=== PATIENT | female | born 1945 | race Caucasian/White ===

== ENCOUNTER → 2017-08-12 11:14 | Outpatient (CLI) | payer MEDICARE, SELFPAY ==
--- NOTE | 2017-08-12 11:21 | RAD_ITS ---
STUDY: X-RAY CHEST REASON FOR EXAM: Female, 72 years old. Productive cough, allergies TECHNIQUE: PA and lateral views of the chest. COMPARISON: Thoracic spine films 06/21/2015 FINDINGS: The lungs are hyperinflated. There are chronic interstitial markings. There is more focal irregular opacity in the left upper lung. The chronicity of this finding is unclear in the absence of comparison chest radiograph. There is no demonstrated pleural abnormality. There is mild cardiac enlargement. Normal mediastinum and anaya. Normal visualized pulmonary arteries. There is atherosclerotic calcification of the aortic arch with tortuosity. The bones are demineralized. There are several compression deformities within the thoracic and lumbar spine. Normal visualized ribs, clavicles, and shoulders. Surgical clips project over the right breast. RAD/Chest PA and Lateral IMPRESSION: Chronic appearing lung changes. More focal opacity in the left upper lobe. This may represent pulmonary scarring. However, in the absence of comparison studies, this may represent focal consolidation. Underlying mass cannot be excluded. This patient may benefit from a CT of the chest. Additional findings, as detailed above. Electronically Signed: Chaparro Adams DO at 9:39 EDT Tel , Service support ,
[2017-08-12 14:53] LABS: Absolute Lymphocyte Count 0.67 X10^3/ul (0.83-4.51); Basophil# 0.02 X10^3/uL; Basophil% 0.2 % (0-1); Eosinophil# 0.01 X10^3/uL; Eosinophils% 0.1 % (0-5); Hematocrit 45.9 % (37-47); Hemoglobin 15.7 g/dl (12.0-15.0); Lymphocyte # 0.67 X10^3/ul (4.0); Lymphocyte % 5.5 % (19-41); Mean Corp Hgb Conc 34.2 g/gl (32-36); Mean Corpuscular Hgb 32.8 pg (27.0-32.0); Mean Corpuscular Volume 95.8 fL (81-99); Mean Platelet Vol. 11.1 fl (6.2-12.0); Monocyte# 1.44 X10^3/uL; Monocyte% 11.8 % (0-10); Neutrophil # 10.02 X10^3/uL (2.7-7.7); Neutrophil % 82.1 % (47-70); Platelet Count 371 K/mm3 (150-450); RBC Distribution Width CV 12.7 % (11.6-14.6); RBC Distribution Width SD 44.6 fl (35.1-43.9); Red Blood Count 4.79 M/mm3 (4.2-5.4); White Blood Count 12.2 K/mm3 (4.4-11.0)
[2017-08-12 14:54] LABS: POSITIVE COUNT NO; POSITIVE DIFFERENTIAL NO; POSITIVE MORPHOLOGY NO
== END ==
PROVIDERS: Family Provider Family Medicine; PCP Family Medicine; Visit Provider Family Medicine
DX: R05 Cough (principal)
CPT/HCPCS: 36415; 71046; 85025

== ENCOUNTER → 2018-06-04 08:20 | Outpatient (CLI) | payer MEDICARE, SELFPAY ==
[2018-06-04 14:53] LABS: Vitamin D,25 Hydroxy 52.2 ng/mL (29.95-100.01)
== END ==
PROVIDERS: Family Provider Family Medicine; PCP Family Medicine; Visit Provider Family Medicine
DX: E55.9 Vitamin D deficiency, unspecified (principal)
CPT/HCPCS: 36415; 82306

== ENCOUNTER → 2019-10-15 09:56 | Outpatient (CLI) | payer MEDICARE, SELFPAY ==
[2019-10-15 12:28] LABS: Absolute Lymphocyte Count 1.15 X10^3/uL (0.83-4.51); Absolute Neutrophil Count 2.6 X10^3/uL (2.0-7.7); Basophil# 0.13 X10^3/uL; Basophil% 2.9 % (0-1); Eosinophil# 0.14 X10^3/uL; Eosinophils% 3.1 % (0-5); Hematocrit 46.2 % (37-47); Hemoglobin 14.6 g/dL (12.0-15.0); Lymphocyte # 1.15 X10^3/ul (4.0); Lymphocyte % 25.4 % (19-41); Mean Corp Hgb Conc 31.6 g/dL (32-36); Mean Corpuscular Volume 104.5 fL (81-99); Mean Platelet Vol. 11.7 fl (6.2-12.0); Monocyte# 0.45 X10^3/uL; NRBC Flagged by Analyzer 0 % (0-5); Neutrophil # 2.64 X10^3/uL (2.7-7.7); Neutrophil % 58.4 % (47-70); Platelet Count 284 K/mm3 (150-450); RBC Distribution Width CV 14.4 % (11.6-14.6); RBC Distribution Width SD 55.6 fl (35.1-43.9); Red Blood Count 4.42 M/mm3 (4.2-5.4); White Blood Count 4.5 K/mm3 (4.4-11.0)
[2019-10-15 12:36] LABS: ALB/GLOB Ratio 1.1 RATIO (0.9-2.4); AST(SGOT) 19 U/L (15-37); Alanine Aminotransfer ALT/SGPT 21 U/L (13-56); Albumin, Serum 3.8 g/dL (3.2-5.0); Alkaline Phosphatase 98 U/L (45-117); Anion Gap 5 (5-15); BUN 12 mg/dL (7-18); BUN/Creat Ratio 17.7 RATIO (10-20); Chloride 106 mmol/L (98-107); Cholesterol 227 mg/dL (200); Creatinine, Serum 0.68 mg/dL (0.55-1.02); EST Glomerular Filtration Rate 90 mL/min (>60); Est Glom Filt Rate - Afr Amer 109 mL/min (>60); Globulin 3.4 g/dL (2.2-4.2); Glucose 79 mg/dL (74-106); High Density Lipoprotein 102 mg/dL; Protein, Total 7.2 g/dL (6.4-8.2); Sodium Level 140 mmol/L (136-145); Triglycerides 85 mg/dL; Very Low Density Lipoprotein 17 mg/dL (5-40)
[2019-10-15 12:56] LABS: Vitamin D,25 Hydroxy 63.2 ng/mL
== END ==
PROVIDERS: PCP Family Medicine; Visit Provider Family Medicine
DX: Z00.00 Encounter for general adult medical examination without abnormal findings (principal); E78.5 Hyperlipidemia, unspecified; E55.9 Vitamin D deficiency, unspecified; M81.0 Age-related osteoporosis without current pathological fracture; Z13.220 Encounter for screening for lipoid disorders
CPT/HCPCS: 36415; 80053; 80061; 82306; 85025

== ENCOUNTER 2020-04-13 15:57 | Outpatient (RCR) | payer MEDICARE, SELFPAY | END 2020-04-13 23:59 | LOC: IMMUN 15:57 | PROVIDERS: PCP Family Medicine; Referring Provider Family Medicine; Visit Provider Family Medicine | DX: Z23 Encounter for immunization (principal) | CPT/HCPCS: 0011A; 0012A ==

== ENCOUNTER → 2021-12-04 | Outpatient (CLI) | payer MEDICARE, SELFPAY ==
[2021-12-04 12:17] LABS: Absolute Lymphocyte Count 1.22 X10^3/uL (0.83-4.51); Basophil# 0.09 X10^3/uL; Basophil% 2.3 % (0-1); Eosinophil# 0.17 X10^3/uL; Eosinophils% 4.4 % (0-5); Hematocrit 45.5 % (37-47); Hemoglobin 14.7 g/dL (12.0-15.0); Lymphocyte # 1.22 X10^3/ul (0.83-4.51); Lymphocyte % 31.5 % (19-41); Mean Corp Hgb Conc 32.3 g/dL (32-36); Mean Corpuscular Hgb 33.8 pg (27.0-32.0); Mean Corpuscular Volume 104.6 fL (81-99); Mean Platelet Vol. 11.5 fl (6.2-12.0); Monocyte% 10.3 % (0-10); NRBC Flagged by Analyzer 0 % (0-5); Neutrophil # 1.98 X10^3/uL (2.7-7.7); Neutrophil % 51.2 % (47-70); Platelet Count 435 K/mm3 (150-450); RBC Distribution Width CV 13.6 % (11.6-14.6); RBC Distribution Width SD 52.7 fl (35.1-43.9); Red Blood Count 4.35 M/mm3 (4.2-5.4); White Blood Count 3.9 K/mm3 (4.4-11.0)
[2021-12-04 13:45] LABS: AST(SGOT) 29 U/L (15-37); Alanine Aminotransfer ALT/SGPT 25 U/L (13-56); Albumin, Serum 3.6 g/dL (3.2-5.0); Alkaline Phosphatase 138 U/L (45-117); Anion Gap 11 (5-15); BUN 10 mg/dL (7-18); BUN/Creat Ratio 13.9 RATIO (10-20); Calcium,Total 9.2 mg/dL (8.5-10.1); Chloride 105 mmol/L (98-107); Cholesterol 219 mg/dL (200); Creatinine, Serum 0.72 mg/dL (0.55-1.02); EST Glomerular Filtration Rate 84 mL/min (>60); Est Glom Filt Rate - Afr Amer 101 mL/min (>60); Globulin 3.6 g/dL (2.2-4.2); Glucose 95 mg/dL (74-106); High Density Lipoprotein 96 mg/dL; Potassium 4.9 mmol/L (3.5-5.1); Protein, Total 7.2 g/dL (6.4-8.2); Sodium Level 140 mmol/L (136-145); Triglycerides 84 mg/dL; Very Low Density Lipoprotein 17 mg/dL (5-40)
== END | disposition home or self-care (01) ==
LOC: BFHLAB 09:02
PROVIDERS: PCP Family Medicine; Referring Provider Family Medicine; Visit Provider Family Medicine
DX: E78.5 Hyperlipidemia, unspecified (principal); Z51.81 Encounter for therapeutic drug level monitoring
CPT/HCPCS: 36415; 80053; 80061; 85025

== ENCOUNTER → 2022-07-19 | Outpatient (CLI) | payer MEDICARE, SELFPAY ==
--- NOTE | 2022-07-19 10:13 | RAD_ITS ---
STUDY: X-RAY - LEFT ANKLE REASON FOR EXAM: Female, 77 years old. Left ankle pain. TECHNIQUE: 3 view(s) of the ankle. COMPARISON: None. FINDINGS: Osteopenia. Intramedullary tibial conor with interlocking cancellus screw and medial distal tibial fracture. Normal tibiotalar and subtalar joints. Normal midfoot. Normal soft tissues. RAD/Ankle min 3 Views IMPRESSION: Osteopenia with postsurgical changes and no other abnormality. Electronically Signed: All Mario MD at 13:13 EDT ,
== END | disposition home or self-care (01) ==
LOC: RAD 10:11
PROVIDERS: PCP Family Medicine; Referring Provider Family Medicine; Visit Provider Family Medicine
DX: M25.572 Pain in left ankle and joints of left foot (principal)
CPT/HCPCS: 73610

== ENCOUNTER → 2022-10-09 | Outpatient (CLI) | payer MEDICARE, SELFPAY ==
--- NOTE | 2022-10-09 10:35 | RAD_ITS ---
STUDY: X-RAY CHEST REASON FOR EXAM: Female, 77 years old. Cough, shortness of breath and wheezing. TECHNIQUE: Frontal and lateral views of the chest. COMPARISON: Chest dated July 2017. FINDINGS: Stable cardiomegaly with aortic tortuosity and calcification. Linear scarring in the left upper lobe with healed granulomatous calcifications unchanged. Increased reticular nodular opacities in both lower lobes, right greater than left, which are new since the prior study. Findings may represent new early/developing pneumonia. Follow-up chest imaging to resolution recommended. Marked osteopenia of the thoracic spine with spondylosis, multiple anterior wedge compression deformities and increased kyphosis. No abnormality of the visualized soft tissue structures of the upper abdomen. RAD/Chest PA and Lateral IMPRESSION: Cardiomegaly with aortic tortuosity and new opacities in both lower lobes as described. Findings may represent early/developing pneumonia and follow-up chest imaging to resolution is recommended. No acute abnormality. Electronically Signed: All Mario MD at 15:43 EDT ,
== END | disposition home or self-care (01) ==
LOC: RAD 10:34
PROVIDERS: PCP Family Medicine; Referring Provider Nurse Practitioner Family; Visit Provider Nurse Practitioner Family
DX: R05.9 Cough, unspecified (principal); R06.02 Shortness of breath; R06.2 Wheezing
CPT/HCPCS: 71046

== ENCOUNTER → 2022-10-24 | Outpatient (CLI) | payer MEDICARE, SELFPAY ==
--- NOTE | 2022-10-24 16:20 | RAD_ITS ---
INDICATION: HX OF PNEUMONIA EXAMINATION/TECHNIQUE: X-RAY - XR Chest 2 Views COMPARISON: 08/12/2017 FINDINGS: LINES/DEVICES: None. LUNGS: Small left pleural effusion. Left lower lobe pneumonia is not excluded. Mild left upper lobe scarring. MEDIASTINUM AND CARDIOVASCULAR STRUCTURES: Cardiac silhouette not enlarged. Central airways and mediastinal contour are unremarkable. BONES AND SOFT TISSUES: Unremarkable. RAD/Chest PA and Lateral IMPRESSION: Left pleural effusion, with question of underlying pneumonia. Electronically Signed: Sarai Goyal MD at 17:10 EDT Reading Location ID and State: [id number] / Tel , Service support ,
[2022-10-24 18:00] LABS: Absolute Lymphocyte Count 0.99 X10^3/uL (0.83-4.51); Absolute Neutrophil Count 5.7 X10^3/uL (2.0-7.7); Basophil# 0.06 X10^3/uL; Basophil% 0.8 % (0-1); Eosinophil# 0.07 X10^3/uL; Hematocrit 45.4 % (37-47); Lymphocyte # 0.99 X10^3/ul (0.83-4.51); Lymphocyte % 13.6 % (19-41); Mean Corpuscular Volume 99.8 fL (81-99); Mean Platelet Vol. 12.3 fl (6.2-12.0); Monocyte# 0.44 X10^3/uL; Monocyte% 6.1 % (0-10); NRBC Flagged by Analyzer 0 % (0-5); Neutrophil # 5.68 X10^3/uL (2.7-7.7); Neutrophil % 78.1 % (47-70); POSITIVE MORPHOLOGY YES; Platelet Count 308 K/mm3 (150-450); RBC Distribution Width CV 12.5 % (11.6-14.6); RBC Distribution Width SD 46.3 fl (35.1-43.9); Red Blood Count 4.55 M/mm3 (4.2-5.4); White Blood Count 7.3 K/mm3 (4.4-11.0)
[2022-10-24 18:03] LABS: AST(SGOT) 33 U/L (15-37); Alanine Aminotransfer ALT/SGPT 34 U/L (13-56); Albumin, Serum 3.8 g/dL (3.2-5.0); Alkaline Phosphatase 158 U/L (45-117); Anion Gap 10 (5-15); BUN 7 mg/dL (7-18); Calcium,Total 9.3 mg/dL (8.5-10.1); Chloride 94 mmol/L (98-107); Creatinine, Serum 0.64 mg/dL (0.55-1.02); EST Glomerular Filtration Rate 96 mL/min (>60); Est Glom Filt Rate - Afr Amer 116 mL/min (>60); Globulin 3.9 g/dL (2.2-4.2); Glucose 123 mg/dL (74-106); Magnesium 1.9 mg/dL (1.6-2.6); Potassium 3.5 mmol/L (3.5-5.1); Protein, Total 7.7 g/dL (6.4-8.2); Sodium Level 129 mmol/L (136-145)
[2022-10-24 18:27] LABS: BNP,B-Type NATRIURETIC PEPTIDE 602.2 pg/mL (0-100)
[2022-10-24 18:46] LABS: Differential Comment SCANNED; Differential Indicated SCAN CRITERIA MET
[2022-10-24 18:47] LABS: Erythrocyte Sedimentation Rate 26 mm/hr (0-30)
== END | disposition home or self-care (01) ==
PROVIDERS: PCP Family Medicine; Referring Provider Nurse Practitioner Family; Visit Provider Nurse Practitioner Family
DX: J18.9 Pneumonia, unspecified organism (principal); R06.02 Shortness of breath; E87.70 Fluid overload, unspecified; R60.1 Generalized edema; Z87.01 Personal history of pneumonia (recurrent)
CPT/HCPCS: 36415; 71046; 80053; 83735; 83880; 85025; 85652; 86140

== ENCOUNTER → 2022-10-25 | Outpatient (CLI) | payer MEDICARE, SELFPAY ==
--- NOTE | 2022-10-25 11:47 | CT_ITS ---
STUDY: CTA CHEST REASON FOR EXAM: Female, 77 years old. SOB RADIATION DOSAGE (If Supplied By Facility): CTDIvol = ( 10.66 ) mGy, DLP = ( 369.81 ) mGycm TECHNIQUE: The examination was performed with the intravenous administration of IV 75mL Isovue-370. Post-processing of the angiographic images was performed, with multiplanar reformation and 3D reconstruction. Individualized dose optimization techniques were used for this CT. COMPARISON: Chest x-ray of 10/24/2022. FINDINGS: Normal enhancement of the main pulmonary artery and right and left pulmonary arteries. Normal enhancement of the bilateral peripheral pulmonary arteries. There is no demonstrated pulmonary embolism. There is atherosclerotic calcification of the aortic arch without evidence of aneurysm. The aorta otherwise is not enhanced. Normal heart and pericardium. Normal mediastinum. Normal hilar regions. Normal visualized trachea and bronchi. Linear atelectasis in the left upper lobe. Limited examination due to motion. Compressive atelectatic changes in the left lower lobe. Moderate to large left and moderate right pleural effusions. Asymmetric right breast density with calcifications. Correlation with nonemergent mammography is recommended. Moderate compression fractures of several mid thoracic vertebrae. Increased kyphosis. The visualized portions of the upper abdomen demonstrate no acute process. 1.4 cm low-density lesion in the liver difficult to characterize and may represent cyst. CT/CTA Chest W/WO Contrast IMPRESSION: 1. No evidence of pulmonary embolism. 2. Atelectatic changes in the left lung. 3. Bilateral pleural effusions larger on the left side. 4. Asymmetric right breast density for which correlation with nonemergent mammography is recommended. Electronically Signed: Erasto Webb MD at 14:02 EDT ,
== END | disposition home or self-care (01) ==
LOC: CT 11:46
PROVIDERS: PCP Family Medicine; Referring Provider Nurse Practitioner Family; Visit Provider Nurse Practitioner Family
DX: J18.9 Pneumonia, unspecified organism (principal); Z85.3 Personal history of malignant neoplasm of breast
CPT/HCPCS: 71275; Q9967; A4216

== ENCOUNTER 2022-10-29 15:01 | Outpatient (CLI) | payer MEDICARE, SELFPAY ==
[2022-10-29 17:46] LABS: Absolute Lymphocyte Count 0.48 X10^3/uL (0.83-4.51); Absolute Neutrophil Count 9.5 X10^3/uL (2.0-7.7); Basophil# 0.02 X10^3/uL; Basophil% 0.2 % (0-1); Hematocrit 47.8 % (37-47); Hemoglobin 15.6 g/dL (12.0-15.0); Lymphocyte # 0.48 X10^3/ul (0.83-4.51); Lymphocyte % 4.6 % (19-41); Mean Corp Hgb Conc 32.6 g/dL (32-36); Mean Corpuscular Hgb 32.8 pg (27.0-32.0); Mean Corpuscular Volume 100.4 fL (81-99); Mean Platelet Vol. 12.2 fl (6.2-12.0); Monocyte# 0.37 X10^3/uL; Monocyte% 3.5 % (0-10); NRBC Flagged by Analyzer 0.2 % (0-5); Neutrophil # 9.52 X10^3/uL (2.7-7.7); Neutrophil % 91.2 % (47-70); POSITIVE DIFFERENTIAL YES; Platelet Count 301 K/mm3 (150-450); RBC Distribution Width CV 12.7 % (11.6-14.6); RBC Distribution Width SD 47.5 fl (35.1-43.9); Red Blood Count 4.76 M/mm3 (4.2-5.4); White Blood Count 10.4 K/mm3 (4.4-11.0)
[2022-10-29 18:05] LABS: Differential Indicated SCAN CRITERIA MET
[2022-10-29 18:32] LABS: Differential Comment SCANNED
[2022-10-29 19:04] LABS: AST(SGOT) 53 U/L (15-37); Alanine Aminotransfer ALT/SGPT 72 U/L (13-56); Albumin, Serum 3.8 g/dL (3.2-5.0); Alkaline Phosphatase 127 U/L (45-117); Anion Gap 11 (5-15); BUN 17 mg/dL (7-18); BUN/Creat Ratio 20.6 RATIO (10-20); Calcium,Total 9.5 mg/dL (8.5-10.1); Chloride 96 mmol/L (98-107); Creatinine, Serum 0.82 mg/dL (0.55-1.02); EST Glomerular Filtration Rate 72 mL/min (>60); Est Glom Filt Rate - Afr Amer 87 mL/min (>60); Free T3 1.6 pg/mL (2.18-3.98); Globulin 3.7 g/dL (2.2-4.2); Glucose 116 mg/dL (74-106); Magnesium 2.4 mg/dL (1.6-2.6); Potassium 3.5 mmol/L (3.5-5.1); Protein, Total 7.5 g/dL (6.4-8.2); Sodium Level 134 mmol/L (136-145); Thyroid Stim Hormone (TSH) 2.02 uIU/mL (0.358-3.74); Troponin-I HS 21 pg/mL (3.0-54.0)
== END 2022-10-29 23:59 | disposition home or self-care (01) ==
LOC: BFHLAB 15:05
PROVIDERS: PCP Family Medicine; Referring Provider Family Medicine; Visit Provider Family Medicine
DX: E03.9 Hypothyroidism, unspecified (principal); R00.0 Tachycardia, unspecified; Z51.81 Encounter for therapeutic drug level monitoring; E87.1 Hypo-osmolality and hyponatremia; R07.9 Chest pain, unspecified; J90 Pleural effusion, not elsewhere classified; R06.02 Shortness of breath
CPT/HCPCS: 36415; 71046; 80053; 83735; 84439; 84443; 84481; 84484; 85025

== ENCOUNTER → 2022-10-29 | Outpatient (CLI) | payer MEDICARE, SELFPAY ==
--- NOTE | 2022-10-29 15:35 | RAD_ITS ---
INDICATION: CHEST XRAY follow-up EXAMINATION/TECHNIQUE: X-RAY - XR Chest 2 Views COMPARISON: Chest x-ray 10/24/2022, CT chest 10/25/2022 FINDINGS: LINES/DEVICES: None. LUNGS: Small pleural effusions, greater on the left, not significantly changed. Patchy opacity in the left lung base and left perihilar, unchanged. No pneumothorax. MEDIASTINUM: Unremarkable. CARDIAC SILHOUETTE: Not enlarged. BONES AND SOFT TISSUES: Multiple thoracic compression abnormalities with kyphosis. Asymmetric breast soft tissue unchanged, and surgical clips overlying the right chest wall. RAD/Chest PA and Lateral IMPRESSION: Bilateral pleural effusions and opacities left greater than right, not significantly changed. Electronically Signed: Nusrat Garcia MD at 6:35 EDT ,
== END | disposition home or self-care (01) ==
LOC: MTRAD 15:28
PROVIDERS: PCP Family Medicine; Referring Provider Family Medicine; Visit Provider Family Medicine
DX: J90 Pleural effusion, not elsewhere classified (principal); R06.02 Shortness of breath
CPT/HCPCS: 71046

== ENCOUNTER → 2022-11-08 | Outpatient (CLI) | payer MEDICARE, SELFPAY ==
--- NOTE | 2022-11-08 09:48 | ECHOD_ITS ---
Reason For Study: BILAT PLEURAL EFF Procedure This was a 2D Doppler, Color Flow transthoracic echocardiogram. The study was technically difficult. Definity declined. Patient was very nervous. Exam performed in department. Left Ventricle Normal LV size. Mild concentric left ventricular hypertrophy. Severe global left ventricular systolic dysfunction. The estimated ejection fraction is 20 %. There is severe global hypokinesis of the left ventricle. Right Ventricle Normal RV size. Normal systolic function. Atria The left atrium is mildly enlarged. The right atrium is mildly enlarged. Mitral Valve Normal mitral valve. Tricuspid Valve Normal tricuspid valve. Mild (1+) tricuspid valve insufficiency. Pulmonary artery systolic pressure is 30 mmHg. Aortic Valve Trisinus/trileaflet aortic valve. Pulmonic Valve Normal pulmonic valve. Great Vessels Normal aortic root. The pulmonary artery is normal size. Normal inferior vena cava. Pericardium/Pleural No pericardial effusion. MMode/2D Measurements & Calculations LVIDd: 3.3 cm IVSd: 1.2 cm Ao root diam: 3.0 cm LVIDs: 3.2 cm LVPWd: 1.4 cm RVDd: 2.5 cm FS: 4.2 % LAV(MOD-bp): 53.2 ml LVAd ap4: 17.6 cm2 LVAd ap2: 16.1 cm2 LAV(MOD-bp) Indexed: 32.0 ml/m2 LVLd ap4: 5.9 cm LVLd ap2: 6.0 cm LAV(MOD-sp2): 41.1 ml EDV(MOD-sp4): 43.5 ml EDV(MOD-sp2): 36.3 ml LAV(MOD-sp4): 54.9 ml EDV(sp4-el): 44.1 ml EDV(sp2-el): 36.7 ml LVAs ap4: 15.8 cm2 LVAs ap2: 13.8 cm2 LVLs ap4: 5.8 cm LVLs ap2: 5.9 cm ESV(MOD-sp4): 36.2 ml ESV(MOD-sp2): 27.9 ml ESV(sp4-el): 36.6 ml ESV(sp2-el): 27.3 ml EF(MOD-sp4): 16.9 % EF(MOD-sp2): 23.1 % EF(sp4-el): 16.9 % SV(MOD-sp4): 7.3 ml SV(MOD-sp2): 8.4 ml SV(sp4-el): 7.5 ml LA dimension(2D): 3.3 cm LA A4 area: 20.5 cm2 RA A4 area: 21.6 cm2 TAPSE: 0.54 cm Doppler Measurements & Calculations MV E max arsh: 66.7 cm/sec Ao V2 max: 86.1 cm/sec LV V1 max: 67.5 cm/sec Ao max P.0 mmHg LV V1 max P.8 mmHg Ao V2 mean: 61.5 cm/sec LV V1 mean P.2 mmHg Ao mean P.7 mmHg LV V1 mean: 52.5 cm/sec Ao V2 VTI: 9.4 cm LV V1 VTI: 6.6 cm AV (velocity ratio): 0.70 TR max arsh: 244.0 cm/sec TR max P.8 mmHg ECHO/Echo Complete Interpretation Summary Normal LV size. Severe global left ventricular systolic dysfunction. The estimated ejection fraction is 20 %. There is severe global hypokinesis of the left ventricle. Pulmonary artery systolic pressure is 30 mmHg. Mild concentric left ventricular hypertrophy. Ordering Physician: Rachna Acosta Referring Physician: Rachna Acosta Performed By: Laura Davis RCS
== END | disposition home or self-care (01) ==
LOC: CVS 09:46
PROVIDERS: PCP Family Medicine; Referring Provider Family Medicine; Visit Provider Family Medicine
DX: J90 Pleural effusion, not elsewhere classified (principal); R06.02 Shortness of breath; R60.9 Edema, unspecified; Z85.3 Personal history of malignant neoplasm of breast
CPT/HCPCS: 93306

== ENCOUNTER 2022-11-27 07:27 | Day surgery (SDC) | payer MEDICARE, SELFPAY ==
[2022-11-26 08:06] VITALS: BMI 22.8
--- NOTE | 2022-11-27 09:36 | PCM.OP.PRO ---
Procedure Report Date of Procedure: 11/27/22 DC cardioversion. 77-year-old lady with a history of atrial fibrillation dilated cardiomyopathy who presents for cardioversion. After informed consent was obtained the patient was seen by Dr. Ruiz of the critical care division. Anterior-posterior pads were applied. 200 J of biphasic DC cardioversion energy were applied after patient had been administered 4 mg of intravenous etomidate. Patient promptly returned back to sinus rhythm. Patient tolerated the procedure well. Conclusion: Successful DC cardioversion from atrial fibrillation to sinus rhythm. Continue current beta-nba dose. Continue anticoagulation. We will start amiodarone 200 mg a day for a month. We will schedule for a cardiac catheterization at the next visit in the office.
--- NOTE | 2022-11-27 10:27 | PRO.PCM_ITS ---
Procedure Report Date of Procedure: 11/27/22 CONSCIOUS SEDATION REPORT DATE OF SERVICE: November 27, 2022 BRIEF HISTORY OF PRESENT ILLNESS: The patient is a 77-year-old female who presented to [facility] for elective outpatient cardioversion due to underlying atrial fibrillation. The patient denied a history of obstructive sleep apnea. She reported no prior anesthetic complications. She is systemically anticoagulated on Eliquis. Her last surface echocardiogram demonstrated an ejection fraction of approximately 20%. PHYSICAL EXAMINATION: VITAL SIGNS: Reviewed and were acceptable. GENERAL: The patient is a female, in no apparent distress, speaking in full sentences. HEENT: Normocephalic, atraumatic. Mucous membranes are moist and pink. Good mouth opening noted. Trachea is midline. CHEST: S1, S2 irregularly irregular. No murmurs, rubs or gallops were noted. LUNGS: Clear to auscultation bilaterally without appreciable wheezes, rales or rhonchi. ABDOMEN: Soft, nontender, nondistended. Positive bowel sounds. EXTREMITIES: There is no clubbing, cyanosis or edema. ASA Class: II DESCRIPTION OF PROCEDURE: After confirmation of informed consent, the patient's anesthesia plan was reviewed in detail. Etomidate was chosen. Risks and benefits were reviewed and the patient agreed to proceed. At 0920, the patient was given 4 mg of etomidate. The patient achieved an appropriate level of sedation and was given a 200 joule synchronized cardioversion by Dr. Berry at the bedside. This was successful in achieving normal sinus rhythm. The patient was monitored until 0933, at which time she reached her baseline mental status and function. The patient tolerated the procedure well. COMPLICATIONS: None ESTIMATED BLOOD LOSS: None RECOMMENDATIONS: Okay to recover in usual fashion. Procedures Pulmonary 9xxxx: [id number] Con Sedation
== END 2022-11-27 10:25 | disposition home or self-care (01) ==
LOC: CLSP 07:28
PROVIDERS: PCP Family Medicine; Referring Provider Internal Medicine Cardiovascular Disease; Visit Provider Internal Medicine Cardiovascular Disease
DX: I48.91 Unspecified atrial fibrillation (principal); I42.8 Other cardiomyopathies; I48.92 Unspecified atrial flutter; Z79.899 Other long term (current) drug therapy; Z87.891 Personal history of nicotine dependence; Z79.01 Long term (current) use of anticoagulants
CPT/HCPCS: 92960; 93005; J7040

== ENCOUNTER → 2022-12-20 | Outpatient (CLI) | payer MEDICARE, SELFPAY ==
[2022-12-20 12:58] LABS: Absolute Lymphocyte Count 1.14 X10^3/uL (0.83-4.51); Basophil# 0.07 X10^3/uL; Basophil% 1.2 % (0-1); Eosinophil# 0.05 X10^3/uL; Eosinophils% 0.9 % (0-5); Hematocrit 43.7 % (37-47); Hemoglobin 13.6 g/dL (12.0-15.0); Lymphocyte # 1.14 X10^3/ul (0.83-4.51); Lymphocyte % 19.8 % (19-41); Mean Corp Hgb Conc 31.1 g/dL (32-36); Mean Corpuscular Hgb 31.3 pg (27.0-32.0); Mean Corpuscular Volume 100.5 fL (81-99); Mean Platelet Vol. 12.3 fl (6.2-12.0); Monocyte% 8.7 % (0-10); NRBC Flagged by Analyzer 0 % (0-5); Neutrophil # 3.97 X10^3/uL (2.7-7.7); Neutrophil % 69.1 % (47-70); Platelet Count 273 K/mm3 (150-450); RBC Distribution Width CV 13.7 % (11.6-14.6); RBC Distribution Width SD 49.9 fl (35.1-43.9); Red Blood Count 4.35 M/mm3 (4.2-5.4); White Blood Count 5.8 K/mm3 (4.4-11.0)
[2022-12-20 13:15] LABS: Anion Gap 6 (5-15); BUN 13 mg/dL (7-18); BUN/Creat Ratio 15.5 RATIO (10-20); Chloride 98 mmol/L (98-107); Creatinine, Serum 0.84 mg/dL (0.55-1.02); EST Glomerular Filtration Rate 70 mL/min (>60); Est Glom Filt Rate - Afr Amer 85 mL/min (>60); Glucose 107 mg/dL (74-106); Potassium 3.8 mmol/L (3.5-5.1); Sodium Level 137 mmol/L (136-145)
== END | disposition home or self-care (01) ==
PROVIDERS: PCP Family Medicine; Referring Provider Physician Assistant Medical; Visit Provider Physician Assistant Medical
DX: I42.8 Other cardiomyopathies (principal); I48.92 Unspecified atrial flutter
CPT/HCPCS: 36415; 80048; 85025

== ENCOUNTER 2022-12-26 12:21 | Emergency (ER) | payer MEDICARE, SELFPAY ==
[2022-12-26 12:22] VITALS: BP 143/88; PULSE 83; RESP 18; TEMP 36.1; O2SAT 99
--- NOTE | 2022-12-26 13:20 | RAD_ITS ---
STUDY: X-RAY - RIGHT ANKLE REASON FOR EXAM: Female, 77 years old. Lateral ankle pain and swelling. TECHNIQUE: 3 view(s) of the ankle. COMPARISON: None. FINDINGS: Normal visualized distal tibia and fibula. Normal medial and lateral malleoli. Normal tibiotalar articulation and ankle mortise. Normal visualized talus and calcaneus. The visualized subtalar, talonavicular, calcaneocuboid and tarsal articulations are normal. The soft tissue structures are unremarkable. RAD/Ankle min 3 Views IMPRESSION: Normal x-ray examination of the ankle. Electronically Signed: Sean Pandya MD at 13:31 EST ,
--- NOTE | 2022-12-26 14:12 | EDS_ITS ---
HPI History of Present Illness Chief Complaint: Lower Extremity Injury Informant: patient Narrative Narrative: Patient is a 77-year-old female with history of nonischemic cardiomyopathy, CHF, atrial flutter on Eliquis presenting with right pain of her right leg. Patient states that on Saturday, 2 days ago, she was given to her car and her ankle was at an odd angle when she put pressure on it. She felt an immediate sharp pain along her lateral right ankle. Since then she has had a lot of pain in her ankle and is now starting to have pain that she describes almost a cramp rating she notes over the past 2 nights she has had charley horses and cramping in her posterior thigh. She states she is not sleeping well. She is taking Tylenol with no relief of her pain. She states she cannot take anything else for pain because she is on Eliquis. Denies any associated numbness or tingling. Her daughter was concerned that maybe she has a blood clot or a vascular issue so they called cardiology recommend she come to the ER to be evaluated further. Patient denies any trauma or injury. States that she has taken tramadol for her back in the past with no issues. No other complaints or concerns at this time. [facility] Medical History Atrial flutter Bilateral pleural effusion History of bilateral breast cancer Non-ischemic cardiomyopathy Home Medications albuterol sulfate 90 mcg/actuation aerosol inhaler inhalation 11/02/22 [History Last Taken Unknown] apixaban 5 mg tablet (Eliquis) 5 mg PO BID #180 tabs 11/02/22 [Rx Last Taken 11/27/22] fluticasone propionate 110 mcg/actuation HFA aerosol inhaler (Flovent HFA) 2 puff inhalation BID PRN shortness of breath or wheezing 11/02/22 [History Last Taken Unknown] fluticasone propionate 50 mcg/actuation nasal spray,suspension (Allergy Relief (fluticasone)) 2 spray intranasal DAILY PRN nasal congestion 11/02/22 [History Last Taken Unknown] furosemide 40 mg tablet 40 mg PO BID #180 tabs 11/02/22 [Rx Last Taken Unknown] lorazepam 0.5 mg tablet mg PO DAILY PRN anxiety 11/02/22 [History Last Taken 11/27/22] metoprolol tartrate 50 mg tablet 50 mg PO BID #180 tabs 11/02/22 [Rx Last Taken 11/27/22] amiodarone 200 mg tablet 200 mg PO Q24H #90 tabs 12/20/22 [Rx Last Taken Unknown] handicap Placcard #1 ea 12/20/22 [Rx Last Taken Unknown] tramadol 50 mg tablet 50 mg PO Q6H PRN pain 3 days #12 tabs 12/26/22 [Rx Last Taken Unknown] Allergy/AdvReac Type Severity Reaction Status Date / Time No Known Allergies Allergy Verified 12/26/22 12:25 Family History Father Myocardial infarction Brother Myocardial infarction Surgical History History of open reduction and internal fixation (ORIF) procedure Social History Smoking Status: Former smoker how long ago did patient quit smokin years alcohol intake: current alcohol intake frequency: 0-2 drinks per day Alcohol type: wine substance use type: does not use caffeine: No ROS ROS ED Constitutional Constitutional ED: Denies chills or fever(s) Cardiovascular Cardiovascular: Denies chest pain Respiratory/Chest Respiratory/Chest: Denies cough or dyspnea Gastrointestinal Gastrointestinal: Denies nausea or vomiting Musculoskeletal Musculoskeletal: Reports myalgias and other Details: right ankle pain, cramping of right leg Integumentary Denies Abrasions or rash Neurologic Neurologic: Denies paresthesias or weakness Psychiatric Psychiatric: Denies anxiety Hematologic/Lymphatic Hematologic/Lymphatic: Reports easy bleeding and easy bruising EXAM Physical Exam Const Vital Signs: 12/26/22 12:22 Temperature 97 F L Temperature Source Temporal Pulse Rate 83 Respiratory Rate 18 Blood Pressure 143/88 H Blood Pressure Mean 106 Pulse Ox 99 Oxygen Delivery Method Room Air Positive well nourished and well developed General Appearance ED: well developed and NAD HEENT Reports moist mucous membranes Neck supple Chest Wall inspection of chest normal and palpation of chest normal Resp normal respiratory effort and clear to auscultation bilaterally Cardio regular rate and regular rhythm Extremity Extremity Narrative: Right lower extremity?no pain at the pelvis. Compartments are soft. No tense palpation of the thigh or calf. Plus DP pulse appreciated on the right that is equal to the left. Brisk capillary refill present. Mild tenderness palpation inferior and posterior to the lateral malleolus. No obvious deformity of the ankle. Mild soft tissue swelling. No tenderness palpation of the medial lateral malleolus, proximal fifth metatarsal or fibular head. No palpable cords appreciated. Neuro oriented x3 and moves all extremities Sensorium / Orientation: alert Motor Exam: Negative for general weakness Psych mental status grossly normal Skin no wounds Lesions: no lesions Rashes: no rashes MDM MDM MDM Narrative Medical decision making narrative: Is evaluated for her right ankle pain with pain rating up her leg. She had a low velocity injury 2 days ago which seems to be the nidus for her issues. She does not have any obvious pulse defect or change or capillary refill. I do not suspect an acute vascular injury. Her compartments are soft and suspicion for compartment syndrome. No pulsatile mass appreciated. There is a pinpoint tenderness near the lateral malleolus more consistent with a sprain. Patient has an x-ray which was read by myself as well as radiology negative for any acute fracture or dislocation. Given that she is anticoagulated on Eliquis has not missed any doses have a low suspicion for continued I do not think she requires a venous duplex at this time. She also does not have any physical exam findings consistent with a DVT such as asymmetric edema, erythema/rubor or palpable cords. Patient has previously tolerated tramadol. Given that she cannot take NSAIDs I feel like for pain control some type of opioid is most indicated. Patient and daughter comfortable with her taking tramadol again for pain control. Is given a dose in the ER. Is given and air stirrup. Has a walker at home to use. Is encouraged to follow-up with her PCP for recheck was also given outpatient follow-up information for orthopedics. Patient did have lab work performed within the last week which is rechecked and did not show any significant [place] abnormalities. I do not think repeat blood work is indicated at this time. Daughter counseled on my findings and thought process. They verbalized agreement understanding with this. Discharged home in stable condition. Radiography Diagnostic Testing: Clinical Impression(s) from Imaging Studies Ankle X-Ray 12/26/22 13:20 IMPRESSION: Normal x-ray examination of the ankle. Electronically Signed: Sean Pandya MD at 13:31 EST , Discharge Plan Triage Chief Complaint: Lower Extremity Injury ED Provider: [place] Dx/Rx/DC Orders Clinical Impression: Leg pain, right, Right ankle sprain Instructions: ED Myalgias, ED Ankle Sprain (Adult) Prescriptions: New tramadol 50 mg tablet 50 mg PO Q6H PRN (Reason: pain) 3 Days Qty: 12 0RF No Action fluticasone propionate [Flovent HFA] 110 mcg/actuation HFA aerosol inhaler 2 puff inhalation BID PRN (Reason: shortness of breath or wheezing) fluticasone propionate [Allergy Relief (fluticasone)] 50 mcg/actuation spray,suspension 2 spray intranasal DAILY PRN (Reason: nasal congestion) Rx Instructions: administer into each nostril lorazepam 0.5 mg tablet PO DAILY PRN (Reason: anxiety) albuterol sulfate 90 mcg/actuation HFA aerosol inhaler inhalation furosemide 40 mg tablet 40 mg PO BID Qty: 180 3RF metoprolol tartrate 50 mg tablet 50 mg PO BID Qty: 180 3RF Eliquis 5 mg tablet 5 mg PO BID Qty: 180 3RF amiodarone 200 mg tablet 200 mg PO Q24H Qty: 90 3RF (DME) handicap Placcard See Rx Instructions .Route .MEDSUPPLY Qty: 1 0RF Rx Instructions: Dx: Cardiomyopathy Expires: 12/2027 Primary Care Provider: Rachna Acosta Referrals: Rachna Acosta DO [Primary Care Provider] - Arnaldo To MD [Med Staff - Active Staff] - As Needed Activity Restrictions/Additional Instructions: Your x-ray did not show any acute broken bone or dislocation however it is possible you sprained your ankle. I suspect this was causing the pain on your right ankle and ultimately causing the cramping of the leg at night. As we discussed I do not think there is an acute vascular insufficiency or blood clot in your leg. Take Tylenol as needed for severe pain. Take Tylenol as needed for mild to moderate pain. Wear air stirrup and use walker as needed for ambulation. Follow-up with your primary care doctor. If needed you have been also given information for orthopedics. Disposition Disposition: Home, Self Care Discharge Date/Time: 12/26/22 14:57
[2022-12-26] MEDS: traMADol 50 MG Tablet PO (14:48)
== END 2022-12-26 14:57 | disposition home or self-care (01) ==
PROVIDERS: Emergency Provider Emergency Medicine; PCP Family Medicine; Visit Provider Emergency Medicine
DX: S93.401A Sprain of unspecified ligament of right ankle, initial encounter (principal); I50.9 Heart failure, unspecified; I42.8 Other cardiomyopathies; X58.XXXA Exposure to other specified factors, initial encounter; M79.604 Pain in right leg; Z79.01 Long term (current) use of anticoagulants; Z87.891 Personal history of nicotine dependence
CPT/HCPCS: 73610; 99283

== ENCOUNTER 2023-01-15 06:58 | Day surgery (SDC) | payer MEDICARE, SELFPAY ==
[2023-01-14 08:38] VITALS: BMI 22.1
--- NOTE | 2023-01-15 08:34 | CL.D_ITS ---
Patient Name: CRISELDA STORM Study Date: 01/15/2023 Performing: Marcelo Berry MD Ht: 64 inches 162.56 cm : 1945 Wt: 128.99 lbs 58.51 kg Age: 77 Gender: female BSA: 1.62 PROCEDURE(S) PERFORMED DC01-([id number])LHC/COR/LV CLINICAL PROFILE AND INDICATIONS Indications: Cardiomyopathy Heart Failure: NYHA Class: 3, Newly Diagnosed: Yes, Heart Failure Type: Systolic Stress/Imaging Stress/Image Study Performed: No CAD Presentations: No Sxs, no angina. CONCLUSIONS Non obstructive coronary arteries Cardiomyopathy: Dilated RECOMMENDATIONS Guideline directed medical therapy, rate control, and interval cardioversion. DESCRIPTION OF PROCEDURE The patient arrived to the procedure lab. The risks and benefits of the procedure as well as a full description of our services here and current unavailability of surgical backup were fully explained to the patient and/or their significant other prior to the catheterization. The Timeout was completed, verifying the correct patient and procedure. The patient's procedural site was prepped and draped in the usual fashion. Local anesthetic was given subcutaneously to right radial region with Lidocaine 2%. Using a modified Seldinger technique, arterial access was obtained via the right radial artery, a 6Fr sheath was inserted. Left Coronary Artery selective angiography was performed in multiple views using a 5 Fr. 4.0 [place] catheter. Right Coronary Artery selective angiography was then performed in multiple views using a 5 Fr. 4.0 [place] catheter. Left Ventriculography was performed in PEARSON projection using a 5 Fr. Pigtail catheter. LV to AO pullback pressures were then recorded.The arterial sheath was pulled and a TR Band was applied for hemostasis CORONARY ANGIOGRAPHY DOMINANCE: Right Dominant LEFT HEART ASSESSMENT Left Ventricular Ejection Fraction: by LV Gram 20 % Global Hypokinesis - Severe Depressed Left Ventricular systolic function LEFT MAIN: Angiographically normal LEFT ANTERIOR DESCENDING ARTERY: Moderate disease noted in the ostium of the LAD of 30 to 40% and mid segment with mild calcification and up to 50% stenosis with mild diffuse disease. CIRCUMFLEX ARTERY: Mild luminal irregularities less than 30% RAMUS: Mild luminal irregularities less than 30% RIGHT CORONARY ARTERY: No significant disease noted COMPLICATIONS No Complications PROCEDURE MEDICATIONS Versed 1 mg IV Versed 1 mg IV Fentanyl 50 mcg IV Versed 1 mg IV Oxygen: 2 L/min via nasal cannula Baby Aspirin (81mg) 1 Tabs PO @ 01/15/2023 07:39:33 Heparin given IA 01/15/2023 08:10:18 Verapamil 2.5mg, Ntg 100mcgs, 3000 units of Heparin given IA 01/15/2023 08:10:18 SUMMARY OF HEMODYNAMIC DATA Time AIR REST ECG 07:32:26 Art 110/58 (78) 08:10:59 AO 107/60 (83) SA 08:14:22 LV 95/2, 8 08:18:26 LV 96/2, 9 08:18:35 LV 56/13, 18 08:19:29 LV 83/2, 8 08:19:37 LVp 79/1, 8 08:19:45 AOp 87/45 (62) 08:19:52 Signed By Marcelo Berry MD On 01/15/2023 08:33:30 Marcelo Berry MD
== END 2023-01-15 10:55 | disposition home or self-care (01) ==
PROVIDERS: PCP Family Medicine; Referring Provider Internal Medicine Cardiovascular Disease; Visit Provider Internal Medicine Cardiovascular Disease
DX: I42.0 Dilated cardiomyopathy (principal); I50.20 Unspecified systolic (congestive) heart failure; I42.8 Other cardiomyopathies; I48.92 Unspecified atrial flutter; Z87.891 Personal history of nicotine dependence; Z79.899 Other long term (current) drug therapy; Z79.01 Long term (current) use of anticoagulants; Z79.82 Long term (current) use of aspirin
CPT/HCPCS: 93458; 99152; 99153; J7040; Q9967; C1769; C1894

== ENCOUNTER 2023-02-21 10:57 | Day surgery (SDC) | payer MEDICARE, SELFPAY ==
--- NOTE | 2023-02-14 13:37 | PCM.HP.BLA ---
History and Physical Date of Admission: 02/21/23 Divina Lynn is a 77-year-old lady with no previous cardiac history who was noted a few weeks ago to have presented with shortness of breath. It was initially thought that she had a respiratory tract infection and then was subsequently treated. A follow-up visit with her PCP noted that she was in heart failure and was in atrial flutter with a rapid ventricular response rate. She was started on metoprolol which was increased and then referred to cardiology for further evaluation and management. Blood work was done including a C-reactive protein which was elevated, and mildly elevated sed rate and a natruretic peptide which was over 600. EKG done demonstrated atrial flutter with a rate of 150 bpm. She also did have a CTA of her chest performed on October 25 which demonstrated moderate to large left and moderate right pleural effusion but no evidence of pulmonary embolism. Echocardiogram demonstrated normal LV size with severe global left ventricular systolic dysfunction with an estimated ejection fraction 20%. Pulmonary artery pressure 30 mmHg. Mild concentric LVH. Earlier this month prior to her cardioversion she was started on digoxin for uncontrolled atrial flutter. Patient did undergo a cardioversion on November 27, 2022. 1 week follow-up EKG demonstrated atrial fibrillation. Because she did not maintain sinus rhythm patient was started on amiodarone, Digoxin was discontinued with the plans of pursuing a diagnostic heart catheterization for further evaluation. She had a heart catheterization 01/15/2023 that showed nonobstructive coronary artery disease and dilated cardiomyopathy. Guideline directed medical therapy was recommended along with rate control and cardioversion. She presents today for cardioversion. Pt notes that she does feel less SOB. She is able to do activities without problems. Dtr sts that her HR is still in the 100s. She has lost weight. She does not have any chest pain/heaviness/tightness. She does not have any orthopnea. She does not have any edema. Intake Vital Signs: See EMR Intake Visit Reasons: [facility] [employer] Required: No Is patient in pain?: No Allergies No Known Allergies Allergy (Unverified 12/20/22 11:35) Medications See EMR [facility] Medical History Atrial flutter Bilateral pleural effusion History of bilateral breast cancer Non-ischemic cardiomyopathy Surgical History History of open reduction and internal fixation (ORIF) procedure Family History Father Myocardial infarctionBrother Myocardial infarction Social History Smoking Status: Former smoker how long ago did patient quit smokin years alcohol intake: current alcohol intake frequency: 0-2 drinks per day Alcohol type: wine substance use type: does not use caffeine: No ROS Const Const: Positive for fatigue (improving); Negative for weakness ENT ENT: Negative for dizziness or balance problems Cardio Chest Pain: No Palpitations: No Edema: None Muscle aches with walking: None Resp Respiratory: Positive for SOB with activity (improving) and SOB orthopnea\SOB lying down; Negative for SOB at rest GI GI: Negative nausea, vomiting or heartburn Musc Musc: Negative for muscle weakness or balance problems Neuro Neuro: Negative for dizziness, lightheadedness, near syncope, syncope or weakness Endo Endo: Positive for fatigue (improving) Cardiology Exam Const Appearance: cooperative and no acute distress Orientation: alert, awake and oriented x3 Head Head: normal to inspection Ears: hearing grossly normal bilaterally Nose: external nose normal Face and Sinus: face symmetric Mouth: oral mucosae normal, lip normal and moist mucous membranes Eyes General: appearance normal, both eyes and all related structures Eyelids: eyelids normal Conjunctivae: conjunctivae normal Pupils: PERRL EOM: EOM intact bilaterally Neck Neck: normal visual inspection and trachea midline; Negative no JVD Carotids: Negative bruit Chest Chest inspection: normal inspection of the chest Auscultation: Bilateral: Diminished Lung Sounds Cardio Palpation: normal PMI Rate: tachycardic Rhythm: irregularly irregular Heart sounds: S1 normal and S2 normal; Negative rub, gallop or murmur GI GI: soft, no hepatosplenomegaly and bowel sounds present Neuro General: patient alert, patient awake, patient oriented x3 and CN's II-XI intact bilaterally Extremities Pulses: Normal: Right Posterior Tibial Pulse, Left Posterior Tibial Pulse, Right Radial Pulse and Left Radial Pulse Lower Extremity Edema: None: Bilateral Psych Psychological: normal affect Supplemental Info Supplemental Information Chest CTA 10/25/2022 IMPRESSION: 1. No evidence of pulmonary embolism. 2. Atelectatic changes in the left lung. 3. Bilateral pleural effusions larger on the left side. 4. Asymmetric right breast density for which correlation with nonemergent mammography is recommended. Echocardiogram 10/2022: Normal LV size. Severe global left ventricular systolic dysfunction. The estimated ejection fraction is 20 %. There is severe global hypokinesis of the left ventricle. Pulmonary artery systolic pressure is 30 mmHg. Mild concentric left ventricular hypertrophy. Heart catheterization from 01/15/2023: CONCLUSIONS Non obstructive coronary arteries Cardiomyopathy: Dilated RECOMMENDATIONS Guideline directed medical therapy, rate control, and interval cardioversion. CORONARY ANGIOGRAPHY DOMINANCE: Right Dominant LEFT HEART ASSESSMENT Left Ventricular Ejection Fraction: by LV Gram 20 % Global Hypokinesis - Severe Depressed Left Ventricular systolic function LEFT MAIN: Angiographically normal LEFT ANTERIOR DESCENDING ARTERY: Moderate disease noted in the ostium of the LAD of 30 to 40% and mid segment with mild calcification and up to 50% stenosis with mild diffuse disease. CIRCUMFLEX ARTERY: Mild luminal irregularities less than 30% RAMUS: Mild luminal irregularities less than 30% RIGHT CORONARY ARTERY: No significant disease noted Assessment and Plan Assessment and Plan (1) Atrial flutter: Status: Acute Plan: Unfortunately she did not maintain SR after her DCCV. She has been continued on amiodarone, Eliquis, and metoprolol. She underwent a heart catheter 01/15/2023 that showed nonobstructive coronary arteries. She was restarted Eliquis therapy and we will proceed with cardioversion. (2) Non-ischemic cardiomyopathy: Status: Acute Plan: Pt currently does not have symptoms of CHF. Her most recent heart catheterization shows nonobstructive coronary artery disease. Her most recent echocardiogram in October 2022 shows an ejection fraction 20%. We will continue to adjust medications according to guideline directed medical therapy.
[2023-02-20 09:57] VITALS: BMI 22.8
--- NOTE | 2023-02-21 12:39 | PRO.PCM_ITS ---
Procedure Report Date of Procedure: 02/21/23 DC cardioversion. 77-year-old lady with a history of nonischemic cardiomyopathy, chronic pers istent atrial fibrillation. Patient has been on anticoagulation for minimum of 4 weeks. The patient was brought to the cardiac catheterization lab in the postabsorptive nonsedated state. Patient was seen by a physician from the critical care division. Informed consent was obtained. Anterior-posterior pads were applied. The patient was then administered 5 mg of intravenous etomidate. 200 J of synchronized DC cardioversion energy were applied with prompt reversal to sinus rhythm. Patient tolerated the procedure well. Conclusion: Successful DC cardioversion from atrial fibrillation to sinus rhythm. Follow-up as per office protocol.
--- NOTE | 2023-02-21 12:55 | PRO.PCM_ITS ---
Procedure Report Date of Procedure: 02/21/23 CONSCIOUS SEDATION REPORT BRIEF HISTORY OF PRESENT ILLNESS: The patient is a 77-year-old female who presented to [facility] for elective outpatient cardioversion due to underlying atrial fibrillation. The patient denied a history of obstructive sleep apnea. She reported no prior anesthetic complications. She is systemically anticoagulated on Eliquis. Her last surface echocardiogram demonstrated an ejection fraction of approximately 20%. PHYSICAL EXAMINATION: VITAL SIGNS: Reviewed and were acceptable. GENERAL: The patient is a [female], in no apparent distress, speaking in full sentences. HEENT: Normocephalic, atraumatic. Mucous membranes are moist and pink. Good mouth opening noted. Trachea is midline. Good neck mobility. MP [IV] CHEST: S1, S2 irregularly irregular. No murmurs, rubs or gallops were noted. LUNGS: Clear to auscultation bilaterally without appreciable wheezes, rales or rhonchi. ABDOMEN: Soft, nontender, nondistended. Positive bowel sounds. EXTREMITIES: There is no clubbing, cyanosis or edema. ASA Class: II DESCRIPTION OF PROCEDURE: After confirmation of informed consent, the patient's anesthesia plan was reviewed in detail. [Etomidate] was chosen. Risks and benefits were reviewed and the patient agreed to proceed. At [12:34], the patient was given 5 mg of etomidate. The patient achieved an appropriate level of sedation and received [1] attempt[s] synchronized cardioversion, at [200 J respectively] by Dr. Berry at the bedside. This was successful in achieving normal sinus rhythm. The patient was monitored until [12:48], at which time the patient reached their baseline mental status and function. The patient tolerated the procedure well. COMPLICATIONS: None ESTIMATED BLOOD LOSS: None RECOMMENDATIONS: Okay to recover in usual fashion. Procedures Pulmonary CF Procedures Pulmonary: 49616 Con Sedation
== END 2023-02-21 13:51 | disposition home or self-care (01) ==
LOC: CLSP 11:03
PROVIDERS: PCP Family Medicine; Referring Provider Internal Medicine Cardiovascular Disease; Visit Provider Internal Medicine Cardiovascular Disease
DX: I48.91 Unspecified atrial fibrillation (principal); I42.8 Other cardiomyopathies; I50.9 Heart failure, unspecified; I48.92 Unspecified atrial flutter; J90 Pleural effusion, not elsewhere classified; Z87.891 Personal history of nicotine dependence; Z79.899 Other long term (current) drug therapy; Z79.01 Long term (current) use of anticoagulants
CPT/HCPCS: 92960; 93005; J7040

== ENCOUNTER → 2023-02-28 | Outpatient (CLI) | payer MEDICARE, SELFPAY ==
--- OUTSIDE RECORDS SUMMARY | 2023-02-28 11:32 | XMS RPT_ITS | CCD ---
Author Name Unknown Address [address] [place] [address] Organization [facility] Care Team Providers Care Sleeve Turner Name Role Phone REHMUS, VANESSA H Unavailable Unavailable [facility] Unavailable Unavailable KIAH ROMERO Unavailable Unavailable REHMUS, VANESSA H Unavailable Unavailable [facility] Unavailable Unavailable KIAH ROMERO Unavailable Unavailable REHMUS, VANESSA H Unavailable Unavailable [facility] Unavailable Unavailable JOHN PAUL ROMEROA MICK Unavailable Unavailable REHMUS, VANESSA H Unavailable Unavailable REHMUS, VANESSA H Unavailable Unavailable JOHN PAUL ROMEROA MICK Unavailable Unavailable Rehmus Vanessa COLLADO Unavailable Unava ilable Kiah Romero MD Primary Care Provider Rachna Aleman DO Primary Care Provider ABHISHEK ANDREWS Attending Unavailable RACHNA ALEMAN Primary Care Unavailable RACHNA ALEMAN Primary Care Unavailable ABHISHEK ANDREWS Attending Unavailable Medications Current Medications Medication Drug Class(es) Dates Sig (Normalized) Sig (Original) naproxen 500 mg oral tablet (1 source) Nonsteroidal Anti-inflammatory Drug Start: 06-12-2022 take 1 tablet by mouth twice daily naproxen (NAPROSYN) 500 MG tablet TAKE 1 TABLET BY MOUTH TWICE DAILY FOR 2 WEEKS 0 06/12/2022 Active Problems Active Problems Problem Classification Problem Date Documented Date Episodic/Chronic Other ear and sense organ disorders (2 sources) Sensorineural hearing loss, bilateral; Translations: [Sensorineural hearing loss, bilateral] Onset: 06-19-2022 06-19-2022 Chronic Other ear and sense organ disorders (1 source) Sensorineural hearing loss, bilateral; Translations: [Sensorineural hearing loss, bilateral] Onset: 06-19-2022 Chronic Other ear and sense organ disorders (1 source) Impacted cerumen in right ear; Translations: [Impacted cerumen, right ear] 06-19-2022 Episodic Other ear and sense organ disorders (1 source) Impaired auditory discrimination; Translations: [Other abnormal auditory perceptions, right ear] 06-19-2022 Episodic Other ear and sense organ disorders (2 sources) Impacted cerumen, right ear; Translations: [Impacted cerumen, right ear] Onset: 06-19-2022 Episodic Other ear and sense organ disorders (2 sources) Other abnormal auditory perceptions, right ear; Translations: [Other abnormal auditory perceptions, right ear] Onset: 06-19-2022 Episodic Unclassified (1 source) Unknown / UNK(Unknown) Onset: 07-09-2017 Past or Other Problems Problem Classification Problem Date Documented Da te Episodic/Chronic Unclassified (1 source) Malignant neoplasm of upper-inner quadrant of left female breast Onset: 07-09-2017 Results Test Name Value Interpretation Reference Range Facil ity Vital Signs Date Time Vital Sign Value Performing Clinician Faci lity 06-19-2022 13:54-0400 Body height 165.1 cm Abhishek Andrews MD Work Phone: [facility] 06-19-2022 13:54-0400 Body mass index (BMI) [Ratio] 23.7 kg/m2 Abhishek Andrews MD Work Phone: [facility] 06-19-2022 13:54-0400 Body temperature 98.01 [degF] Abhishek Andrews MD Work Phone: [facility] 06-19-2022 13:54-0400 Body weight 64.59 kg Abhishek Andrews MD Work Phone: [facility] Encounters Encounter Date Encounter Type Care Provider Facility Start: 06-21-2022 ambulatory RACHNA A BRADYS [facility] Start: 06-19-2022 End: 06-19-2022 ambulatory ABHISHEK ANDREWS [facility] Start: 06-19-2022 End: 06-19-2022 Office outpatient visit 15 minutes Abhishek Andrews MD Work Phone: [facility] [place] Procedures Date Procedure Procedure Detail Performing Clinician Start: 09-29-2021 ALANNAH SCREENING [facility] Provider Start: 09-17-2019 Mammography Abhishek mitchell MD Work Phone: Start: 01-04-2017 Adult depression scr eening assessment Screen Wstr Plan of Treatment Date Care Activity Detail Author Start: 12-25-2022 End: 12-25-2022 Patient encounter procedure 12/25/2022 10:00 AM EST Office Visit [facility] [address] [place] [address] Abhishek Andrews MD [address] [place] [id number] [facility] Start: 10-19-2021 Influenza vaccination INFLUENZA (#1) [facility] Start: 06-03-2021 COVID-19 VACCINE (4 - Booster for Moderna series) COVID-19 VACCINE (4 - Booster for Moderna series) [facility] Start: 03-30-2021 COVID-19 Vaccine (4 - Booster for Moderna series) COVID-19 Vaccine (4 - Booster for Moderna series) [facility] Start: 02-18-2021 ADVANCE DIRECTIVE DISCUSSION ADVANCE DIRECTIVE DISCUSSION [facility] Start: 09-16-2020 Screening for malignant neoplasm of breast Mammogram [facility] Start: 05-19-2018 DIABETES SCREEN DIABETES SCREEN [facility] Start: 01-04-2018 Adult depression screening assessment DEPRESSION SCREENING [facility] Start: 04-29-2011 BONE DENSITY BONE DENSITY [facility] Start: 04-29-2011 Fall risk assessment Falls Risk Assessment [facility] Start: 04-29-2011 Pneumococcal Vaccine: Age 65+ (1 - PCV) Pneumococcal Vaccine: Age 65+ (1 - PCV) [facility] Start: 04-29-2011 PNEUMOCOCCAL: 65+ (1 - PCV) PNEUMOCOCCAL: 65+ (1 - PCV) [facility] Start: 1996 Administration of herpes zoster vaccine Zoster Vaccines (1 of 2) [facility] Start: 1996 SHINGRIX VACCINE (1 of 2) SHINGRIX VACCINE (1 of 2) [facility] Start: 04-29-1991 COLOGUARD (FIT-DNA) COLOGUARD (FIT-DNA) [facility] Start: 04-29-1991 Colonoscopy COLONOSCOPY [facility] Start: 04-29-1991 COLORECTAL CANCER SCREENING COLORECTAL CANCER SCREENING [facility] Start: 04-29-[address] COLONOGRAPHY [facility] Start: 04-29-1991 FECAL OCCULT BLOOD FECAL OCCULT BLOOD [facility] Start: 04-29-1991 LIPID SCREEN LIPID SCREEN [facility] Start: 04-29-1991 SIGMOIDOSCOPY SIGMOIDOSCOPY [facility] Start: 1965 Urine microalbumin profile DTAP,TDAP,TD (1 - Tdap) [facility] Start: 1964 Hepatitis C screening Hepatitis C Screening [facility] Start: 1958 Depression screening using PHQ-9 (Patient Health Questionnaire 9) score Depression Screening (PHQ-2/9) [facility] Start: 1949 History and physical examination, annual for health maintenance Wellness Visit [facility] Start: 1946 Screening for osteoporosis Dexa Scan [facility] Start: 1946 Tetanus vaccination Tetanus: Every 10yrs [facility] Payers Date Payer Category Payer Unknown PRIMETIME PRIMET FERNANDA HMO POS [id number] 2020-Present [phone] [address] [place] [address] HMO [id number] 1946 Unknown [id number] 1946 Unknown [id number] 1946 Unknown [id number] 1946 Unknown [id number] 1946 Unknown [id number] 1946 Unknown [id number] Medicare [id number] Unknown [id number] Social History Date Type Detail Facility Start: 01-04-2017 Tobacco smoking stat us [facility] Ex-smoker [facility] Start: 02-19-1976 End: 02-19-2016 History of tobacco use Current smoker [facility] Start: 02-19-1976 End: 02-19-2016 History of tobacco use Cigarette Smoker [facility] Start: 01-04-2017 Tobacco use and exposure Smokeless t obacco non-user [facility] Start: 08-11-2019 Alcohol intake Current drinke r of alcohol (finding) [facility] Start: 08-11-2019 [facility] Start: 03-01-2015 History SDOH Alcohol Comment social [facility] Start: 12-27-2016 Tobacco Comment 3 cigarettes/day [facility] Start: 1945 Sex Assigned At Not on file [facility] Start: 09-19-2021 End: 06-19-2022 Exposure to SARS-CoV-2 (event) Not sure [facility] Tobacco smoking stat [facility] Tobacco smoking consumption unknown [facility] Gender identity Not on file [facility] History of Present illness Narrative 06-19-2022 Abhishek Andrews MD - 06/19/2022 2:08 PM EDTDaisha Bonilla MA - 06/19/2022 2:00 PM EDTSdedrick Christina MA - 06/19/2022 1:52 PM EDT Note Date & Type Note Facility 06-19-2022 History of Presen t illness Narrative [facility] [address] [facility] [place] [address] [facility] [address] Dept: [phone] MD Criselda Scruggs 77 y.o. female Patient presents with a chief complaint of syl pt just had [facility] (New Pt/ prev pt at [facility]/Hearing test showed right ear was not good and they wanted a ENT to see her.//No pain or drainage at this time) Temp 98 F (36.7 C) Ht 5' 5 Wt 64.6 kg (142 lb 6.4 oz) BMI 23.70 kg/m History of Presenting Illness: The patient/caregiver reports a history of complaint with the following features: She presents for evaluation after a recent audiogram which showed a decline in her right hearing. She has not noticed any change and reports that she was anxious in the testing haynes. She has had trouble hearing a speaker in a distant room, but this has been present for many years. Review of systems covering 10 systems is reviewed and pertinent positives and negatives are noted as above. Past Medical History: Diagnosis Date Breast cancer (HCC) Hyperlipidemia Current Outpatient Medications: naproxen (NAPROSYN) 500 MG tablet, TAKE 1 TABLET BY MOUTH TWICE DAILY FOR 2 WEEKS, Disp: , Rfl: No Known Allergies Past Surgical History: Procedure Laterality Date BREAST LUMPECTOMY Left CATARACT EXTRACTION BILATERAL W/ ANTERIOR VITRECTOMY Social History Socioeconomic History Marital status: Single Family History Problem Relation Age of Onset Stomach cancer Mother Heart disease Father Heart disease Brother PHYSICAL EXAM: The patient was examined today 06/19/2022 with findings as follows: CONSTITUTIONAL: General Appearance: well-appearing, nontoxic, alert, no acute distress Communication: normal voicing, hearing intact to spoken voice HEAD/FACE: Head: atraumatic, normocephalic, no lesions Facial Inspection: no lesions, healthy skin Facial Strength: motor strength normal, symmetric strength, symmetric movement EYES: Pupils: PERRLA, extra-ocular movements intact, no nystagmus, sclera white, no redness of eyes, no watering of eyes EARS: Bilateral External Ears: no pits, no tags Right External Ear: normally formed, no lesions, no mastoid tenderness Left External Ear: normally formed, no lesions, no mastoid tenderness Right External Auditory Canal: normal, healthy skin, obstructing cerumen removed, no discharge Left External Auditory Canal: normal, healthy skin, no obstructing cerumen, no discharge Right Tympanic Membrane: normal landmarks, translucent, no perforation Left Tympanic Membrane: normal landmarks, translucent, no perforation Hearing: intact to spoken voice NECK: Neck: no masses, trachea midline, normal range of motion, no cysts or pits, no tenderness to palpation LYMPH NODES: Cervical: no palpable lymph node enlargement SKIN: General Appearance: no lesions, warm and dry, normal turgor, no bruising PSYCHIATRIC: Mood and affect: normal mood, normal affect Assessment and Plan: She has some obstructing cerumen that is removed today with immediate improvement in her report of hearing. I have reveiwed her recent audiogram that shows a 5-10 dB loss in the right prom a previous audiogram in 2019. More significantly, the speech discrimination has dropped significantly in the right to 40%, from 92% previously. We have discussed MRI to evaluation the auditory nerve, but she is reluctant to pursue this. As she had a significant improvement with cerumen removal, this also may represent artifact from the obstruction. Repeat testing in 6 months to assess for stability is suggested prior to consideration of imaging and she prefers this strategy at this time. 1. Sensorineural hearing loss, bilateral 2. Impacted cerumen of right ear 3. Impaired auditory discrimination, right Return in about 6 months (around 12/20/2022). The patient and/or caregiver is to notify the office if no improvement or worsening of symptoms is noted prior to the scheduled follow-up for sooner evaluation. The patient and/or caregiver is able to state an understanding of these recommendations and is agreeable to the treatment plan. --Abhishek Andrews MD on 06/19/2022 at 2:22 PM An electronic signature was used to authenticate this note. error Review of Systems Constitutional: Negative. HENT: Positive for postnasal drip (depends on the weather). Eyes: Negative. Respiratory: Negative. Cardiovascular: Negative. Gastrointestinal: Negative. Endocrine: Positive for cold intolerance. Genitourinary: Negative. Musculoskeletal: Negative. Skin: Negative. Allergic/Immunologic: Negative. Neurological: Negative. Hematological: Negative. Psychiatric/Behavioral: Negative. documented in this encounter [facility] Note 09-29-2021 Letter - Mammography Coordinator - 09/29/2021 1:48 PM EDT Note Date & Type Note Facility 09-29-2021 Miscellaneous Notes Formattin g of this note might be different from the original. September 29, 2021 PID: [id number] Criselda Shane [address] [place] [address] Dear Ms. Storm, We are pleased to inform you that the results of your recent breast imaging exam on 09/29/2021 are normal. Your mammogram demonstrates that you have dense breast tissue, which could hide abnormalities. Dense breast tissue, in and of itself, is a relatively common condition. Therefore, this information is not provided to cause undue concern; rather, it is to raise your awareness and promote discussion with your health care provider regarding the presence of dense breast tissue in addition to other risk factors. Early detection of cancer is very important. We also understand recommendations regarding breast cancer screening are controversial. Please discuss with your primary care provider which strategy is best for you and whether a mammogram is right for you. Your imaging studies and report will be kept on file at [facility] as part of your permanent medical record and are available for your continuing care. Thank you for allowing us to help in meeting your health care needs. Sincerely, Dr. To Interpreting Radiologist [facility] (Normal over 40) documented in this encounter [facility] Progress note 09-29-2021 Note Date & Type Note Facility 09-29-2021 Note HNO ID: [id number] Author: RT Miguel(R) Service: ? Author Type: Technologist Type: Progress Notes Filed: 09/29/2021 10:51 AM Note Text: Radiology Service Progress Note PATIENT NAME: Criselda Storm DATE OF SERVICE: September 29, 2021 TIME: 10:50 AM PATIENT IDENTITY VERIFICATION COMPLETED USING TWO (2) IDENTIFIERS: Name and Date of confirmed by patient verbally. FALL SCREENING: Has the patient had 2 falls in the last year or 1 fall with injury or currently using an Ambulatory Assistive Device (Walker, Cane, Wheelchair, Crutches, etc.)? No PATIENT GENDER DATA: Female. status: : No status: NO. PATIENT RELEVANT IMPLANT DATA REVIEWED: Not Applicable RADIOLOGY DEPARTMENT: Mammography PERIPHERAL IV DATA: Not applicable SIGNED BY: RT Miguel(R) September 29, 2021 10:50 AM [facility] History of Present illness Narrative 09-29-2021 RT Miguel(R) - 09/29/2021 10:50 AM EDT Note Date & Type Note Facility 09-29-2021 History of Presen t illness Narrative Radiology Service Progress Note PATIENT NAME: Criselda Storm DATE OF SERVICE: September 29, 2021 TIME: 10:50 AM PATIENT IDENTITY VERIFICATION COMPLETED USING TWO (2) IDENTIFIERS: Name and Date of confirmed by patient verbally. FALL SCREENING: Has the patient had 2 falls in the last year or 1 fall with injury or currently using an Ambulatory Assistive Device (Walker, Cane, Wheelchair, Crutches, etc.)? No PATIENT GENDER DATA: Female. status: : No status: NO. PATIENT RELEVANT IMPLANT DATA REVIEWED: Not Applicable RADIOLOGY DEPARTMENT: Mammography PERIPHERAL IV DATA: Not applicable SIGNED BY: RT Miguel(R) September 29, 2021 10:50 AM documented in this encounter [facility] Evaluation note Note Date & Type Note Facility documented in this encounter [facility] Summary Purpose Family History No Family History Records FoundNo Family History Records FoundNo Family History Records FoundNo Family History Records Found Advance Directives No Advanced Directives Records FoundNo Advanced Directives Records FoundNo Advanced Directives Records FoundNo Advanced Directives Records Found Additional Source Comments INFORMATION SOURCE (unrecogn ized section and content) DATE CREATED AUTHOR AUTHOR'S ORGANIZ ATION 09/07/2019 [facility] DATE CREATED AUTHOR AUTHOR'S ORGANIZ ATION 10/03/2021 [facility] DATE CREATED AUTHOR AUTHOR'S ORGANIZ ATION 06/25/2022 [facility] Source Comments (unrecognize d section and content) In the event this informatio n is protected by the Federal Confidentiality of Alcohol and Drug Abuse Patient Records regulations: The Federal rules restrict any use of the information to criminally investigate or prosecute any alcohol or drug abuse patient.[facility] the event this information is protected by the Federal Confidentiality of Alcohol and Drug Abuse Patient Records regulations: The Federal rules restrict any use of the information to criminally investigate or prosecute any alcohol or drug abuse patient.[facility] Care Teams (unrecognized sec tion and content) Sleeve Turner Relationship Specialty Start Date End Date Kiah Romero MD [address] [facility] [address] [place], [place] [id number] PCP - General Family Practice 11/15/15 Vanessa Champagne MD Hematology/Oncology 03/01/15 Sleeve Turner Relationship Specialty Start Date End Date Rachna Aleman DO [address] [place], [place] [id number] PCP - General Family Medicine 05/29/22 Reason for Visit (unrecogniz ed section and content) FOR RECORDS PERTAINING TO PATIENTS WHO ARE OR HAVE BEEN ENROLLED IN A CHEMICAL DEPENDENCY/SUBSTANCEABUSE PROGRAM, SOME INFORMATION MAY BE OMITTED. This clinical summary was aggregated from multiple sources. Caution should be exercised in using it in the provision of clinical care. This summary normalizes information from multiple sources, and as a consequence, information in this document may materially change the coding, format and clinical context of patient data. In addition, data may be omitted in some cases. CLINICAL DECISIONS SHOULD BE BASED ON THE PRIMARY CLINICAL RECORDS. [facility]. provides no warranty or guarantee of the accuracy or completeness of information in this document.
[2023-02-28 11:39] LABS: Hematocrit 38.8 % (37-47); Hemoglobin 12.5 g/dL (12.0-15.0); Mean Corp Hgb Conc 32.2 g/dL (32-36); Mean Corpuscular Hgb 32.4 pg (27.0-32.0); Mean Corpuscular Volume 100.5 fL (81-99); Mean Platelet Vol. 10.9 fl (6.2-12.0); Platelet Count 337 K/mm3 (150-450); RBC Distribution Width CV 15.8 % (11.6-14.6); RBC Distribution Width SD 58.4 fl (35.1-43.9); Red Blood Count 3.86 M/mm3 (4.2-5.4); White Blood Count 6.8 K/mm3 (4.4-11.0)
[2023-02-28 11:50] LABS: BNP,B-Type NATRIURETIC PEPTIDE 641.1 pg/mL (0-100)
[2023-02-28 11:52] LABS: Anion Gap 7 (5-15); BUN 11 mg/dL (7-18); BUN/Creat Ratio 12.1 RATIO (10-20); Chloride 101 mmol/L (98-107); Creatinine, Serum 0.91 mg/dL (0.55-1.02); EST Glomerular Filtration Rate 64 mL/min (>60); Est Glom Filt Rate - Afr Amer 77 mL/min (>60); Glucose 114 mg/dL (74-106); Potassium 3.3 mmol/L (3.5-5.1); Sodium Level 139 mmol/L (136-145)
== END | disposition home or self-care (01) ==
LOC: LAB 10:30
PROVIDERS: PCP Family Medicine; Referring Provider Physician Assistant Medical; Visit Provider Physician Assistant Medical
DX: R06.02 Shortness of breath (principal); I42.8 Other cardiomyopathies; I50.9 Heart failure, unspecified; R06.2 Wheezing; J90 Pleural effusion, not elsewhere classified
CPT/HCPCS: 36415; 80048; 83880; 85027

== ENCOUNTER → 2023-07-25 | Outpatient (CLI) | payer MEDICARE, SELFPAY | END | disposition home or self-care (01) | PROVIDERS: PCP Family Medicine; Referring Provider Family Medicine; Visit Provider Family Medicine | DX: R19.7 Diarrhea, unspecified (principal) | CPT/HCPCS: 83630; 87493 ==

== ENCOUNTER → 2023-07-26 | Outpatient (CLI) | payer MEDICARE, SELFPAY ==
[2023-07-26 13:09] LABS: Absolute Lymphocyte Count 0.89 X10^3/uL (0.83-4.51); Absolute Neutrophil Count 5.8 X10^3/uL (2.0-7.7); Basophil# 0.06 X10^3/uL; Basophil% 0.7 % (0-1); Eosinophil# 0.05 X10^3/uL; Eosinophils% 0.6 % (0-5); Hematocrit 40.6 % (37-47); Hemoglobin 13.3 g/dL (12.0-15.0); Lymphocyte # 0.89 X10^3/ul (0.83-4.51); Mean Corp Hgb Conc 32.8 g/dL (32-36); Mean Corpuscular Hgb 31.5 pg (27.0-32.0); Mean Corpuscular Volume 96.2 fL (81-99); Mean Platelet Vol. 10.6 fl (6.2-12.0); Monocyte# 1.23 X10^3/uL; Monocyte% 15.2 % (0-10); NRBC Flagged by Analyzer 0 % (0-5); Neutrophil % 71.8 % (47-70); Platelet Count 396 K/mm3 (150-450); RBC Distribution Width CV 14.3 % (11.6-14.6); RBC Distribution Width SD 50.2 fl (35.1-43.9); Red Blood Count 4.22 M/mm3 (4.2-5.4); White Blood Count 8.1 K/mm3 (4.4-11.0)
[2023-07-26 13:43] LABS: ALB/GLOB Ratio 0.9 RATIO (0.9-2.4); AST(SGOT) 54 U/L (15-37); Alanine Aminotransfer ALT/SGPT 74 U/L (13-56); Albumin, Serum 3.1 g/dL (3.2-5.0); Alkaline Phosphatase 130 U/L (45-117); Anion Gap 8 (5-15); BUN 19 mg/dL (7-18); BUN/Creat Ratio 17.8 RATIO (10-20); Chloride 98 mmol/L (98-107); Creatinine, Serum 1.07 mg/dL (0.55-1.02); EST Glomerular Filtration Rate 53 mL/min (>60); Est Glom Filt Rate - Afr Amer 64 mL/min (>60); Globulin 3.4 g/dL (2.2-4.2); Glucose 105 mg/dL (74-106); Potassium 3.1 mmol/L (3.5-5.1); Protein, Total 6.5 g/dL (6.4-8.2); Sodium Level 133 mmol/L (136-145)
== END | disposition home or self-care (01) ==
PROVIDERS: PCP Family Medicine; Referring Provider Nurse Practitioner Family; Visit Provider Nurse Practitioner Family
DX: I48.91 Unspecified atrial fibrillation (principal); I95.9 Hypotension, unspecified
CPT/HCPCS: 36415; 80053; 85025

== ENCOUNTER → 2023-08-12 | Outpatient (CLI) | payer MEDICARE, SELFPAY | END | disposition home or self-care (01) | LOC: BFHLAB 16:34 | PROVIDERS: PCP Family Medicine; Referring Provider Family Medicine; Visit Provider Family Medicine | DX: A04.72 Enterocolitis due to Clostridium difficile, not specified as recurrent (principal); R19.7 Diarrhea, unspecified | CPT/HCPCS: 87493 ==

== ENCOUNTER → 2023-10-07 | Outpatient (CLI) | payer MEDICARE, SELFPAY | END | disposition home or self-care (01) | LOC: MTLAB 13:27 | PROVIDERS: PCP Family Medicine; Referring Provider Family Medicine; Visit Provider Family Medicine | DX: A04.72 Enterocolitis due to Clostridium difficile, not specified as recurrent (principal); R19.7 Diarrhea, unspecified | CPT/HCPCS: 87493 ==

== ENCOUNTER 2023-10-30 13:18 | Outpatient (CLI) | payer MEDICARE, SELFPAY ==
[2023-10-30 13:39] VITALS: BP 117/68; PULSE 56; RESP 16; TEMP 35.9; O2SAT 99
[2023-10-30] MEDS: 0.9% NaCl IVPB Med Flush (250 mL) 15 ML IV (14:16)
[2023-10-30] MEDS: NORMAL SALINE 0.9% IV (14:17)
[2023-10-30] MEDS: BEZLOTOXUMAB IV (14:17)
[2023-10-30 15:56] VITALS: BP 112/56; PULSE 58; RESP 18; TEMP 36.3; O2SAT 98
== END 2023-10-30 16:00 | disposition home or self-care (01) ==
LOC: MEDOUTP 13:21 → ICU 13:21
PROVIDERS: PCP Family Medicine; Referring Provider Student in an Organized Health Care Education/Training Program; Visit Provider Student in an Organized Health Care Education/Training Program
DX: A04.72 Enterocolitis due to Clostridium difficile, not specified as recurrent (principal)
CPT/HCPCS: 96365; 96366; J7050; J0565

== ENCOUNTER → 2024-03-09 | Outpatient (CLI) | payer MEDICARE, SELFPAY ==
--- NOTE | 2024-03-09 07:58 | CT_ITS ---
STUDY: CT ABDOMEN WITH AND WITHOUT CONTRAST REASON FOR EXAM: Female, 78 years old. LIVER LESION ON CT OF CHEST, POSSIBLE HEMAGIOMA RADIATION DOSAGE (If Supplied By Facility): CTDIvol = ( 8.54 ) mGy, DLP = ( 638.56 ) mGycm TECHNIQUE: Transaxial images were obtained pre and post I.V. administration of IV 100mL Isovue-300, and with oral contrast. Sagittal and coronal images were reconstructed. Individualized dose optimization techniques were used for this CT. COMPARISON: None. FINDINGS: Moderate size left pleural effusion with left basilar atelectasis and/or infiltration. Coronary artery calcification. There is a 1.7 cm hypodense nodule in the superior anterior aspect of the dome of the right lobe of the liver. Normal gallbladder and extrahepatic biliary system. Normal spleen. Normal pancreas. Normal bilateral adrenal glands. Normal right kidney. Normal left kidney. Diffuse thickening of the distal portion of the stomach. Normal small intestine. Normal colon. The appendix is visualized and appears normal. There is diffuse atherosclerotic calcification of the abdominal aorta, without a demonstrated aneurysm. Normal inferior vena cava. Normal retroperitoneum. Normal abdominal wall. Osteopenia of the vertebrae visualized. Loss of height of the L4, L1 and T11 and T9 vertebrae. CT/Abdomen W/WO IV Contrast IMPRESSION: 1.7 cm hypodense nodule in the superior anterior aspect of the dome of the right lobe of the liver anteriorly. This is not a typical cyst. Correlation with ultrasound is recommended. Moderate sized left pleural effusion with left basilar infiltration and/or atelectasis. Electronically Signed: Sean Pandya MD at 15:04 EST ,
[2024-03-09 09:30] LABS: Anion Gap 6 (5-15); BUN 16 mg/dL (7-18); BUN/Creat Ratio 16.1 RATIO (10-20); Calcium,Total 9.1 mg/dL (8.5-10.1); Chloride 100 mmol/L (98-107); Creatinine, Serum 0.99 mg/dL (0.55-1.02); EST Glomerular Filtration Rate 57 mL/min (>60); Est Glom Filt Rate - Afr Amer 70 mL/min (>60); Glucose 82 mg/dL (74-106); Potassium 4.2 mmol/L (3.5-5.1); Sodium Level 135 mmol/L (136-145)
[2024-03-11 14:10] LABS: AST(SGOT) 16 U/L (15-37); Alanine Aminotransfer ALT/SGPT 16 U/L (13-56); Albumin, Serum 3.4 g/dL (3.2-5.0); Alkaline Phosphatase 112 U/L (45-117); Bilirubin, Direct 0.15 mg/dL (0.00-0.30); Globulin 3.5 g/dL (2.2-4.2); Protein, Total 6.9 g/dL (6.4-8.2)
== END | disposition home or self-care (01) ==
PROVIDERS: Physician Assistant Medical; PCP Family Medicine; Referring Provider Family Medicine; Visit Provider Family Medicine
DX: K76.9 Liver disease, unspecified (principal); R93.2 Abnormal findings on diagnostic imaging of liver and biliary tract
CPT/HCPCS: 36415; 74170; 80048; 80076; Q9967

== ENCOUNTER → 2024-03-17 | Outpatient (CLI) | payer MEDICARE, SELFPAY ==
--- NOTE | 2024-03-17 09:55 | US_ITS ---
PROCEDURE: LIVER REASON FOR EXAM: Lesion seen on CT. COMPARISON: CT examination of 03/09/2024 FINDINGS: In the area of CT concern of the liver in the right hepatic lobe near the dome of the diaphragm is seen a cyst measuring 16 x 16 x 13 mm. No internal blood flow is seen upon color Doppler evaluation. The liver is of normal size, measured at 14.3 cm in length. Normal hepatic echogenicity is otherwise seen. Hepatopetal flow of the portal vein is noted. No ascites is seen in visualized areas. The gallbladder appears within normal limits, without evidence of stones, wall thickening, or pericholecystic fluid collection. No sonographic Gómez's sign was elicited. The pancreas is seen in a limited fashion, but without apparent abnormality. The right kidney is unremarkable in appearance, measured at 9.4 x 5.1 x 3.4 cm. The cortex is measured at 11 mm in thickness. US/Liver IMPRESSION: 1. No evidence of acute disease. 2. Right hepatic small cyst. Reading Location: [id number]
[2024-03-17 11:24] LABS: Erythrocyte Sedimentation Rate 9 mm/hr (0-30)
[2024-03-17 11:27] LABS: Absolute Lymphocyte Count 0.81 X10^3/uL (0.83-4.51); Absolute Neutrophil Count 2.5 X10^3/uL (2.0-7.7); Basophil# 0.07 X10^3/uL; Basophil% 1.7 % (0-1); Eosinophil# 0.12 X10^3/uL; Hematocrit 41.6 % (37-47); Hemoglobin 13.6 g/dL (12.0-15.0); Lymphocyte # 0.81 X10^3/ul (0.83-4.51); Lymphocyte % 20.1 % (19-41); Mean Corp Hgb Conc 32.7 g/dL (32-36); Mean Corpuscular Hgb 30.9 pg (27.0-32.0); Mean Corpuscular Volume 94.5 fL (81-99); Mean Platelet Vol. 10.2 fl (6.2-12.0); Monocyte# 0.52 X10^3/uL; Monocyte% 12.9 % (0-10); NRBC Flagged by Analyzer 0 % (0-5); Neutrophil # 2.49 X10^3/uL (2.7-7.7); Neutrophil % 62.1 % (47-70); Platelet Count 284 K/mm3 (150-450); RBC Distribution Width CV 14.7 % (11.6-14.6); RBC Distribution Width SD 51.3 fl (35.1-43.9)
[2024-03-17 11:51] LABS: LDH 189 U/L (84-246)
== END | disposition home or self-care (01) ==
PROVIDERS: PCP Family Medicine; Referring Provider Family Medicine; Visit Provider Family Medicine
DX: K76.89 Other specified diseases of liver (principal); J90 Pleural effusion, not elsewhere classified; K31.89 Other diseases of stomach and duodenum; Z51.81 Encounter for therapeutic drug level monitoring
CPT/HCPCS: 36415; 76705; 83615; 85025; 85652; 86140

== ENCOUNTER → 2024-03-19 | Outpatient (CLI) | payer MEDICARE, SELFPAY ==
--- NOTE | 2024-03-19 12:55 | ECHOD_ITS ---
Reason For Study: CONGESTIVE HEART FAILURE Procedure This was a 2D Doppler, Color Flow transthoracic echocardiogram. Myocardial strain analysis was performed in this exam to aid in the assessment of cardiac function. The study was technically difficult. Exam performed in department. Left Ventricle Normal LV size. The global longitudinal strain = -16.8% (borderline). Stage 3 diastolic dysfunction. The left ventricular ejection fraction is 60 %. Right Ventricle Normal RV size. Normal systolic function. Atria Normal left atrium. Normal right atrium. Tricuspid Valve Normal tricuspid valve. Mild to moderate (1-2+) tricuspid valve insufficiency. Pulmonary artery systolic pressure is 30 mmHg. Aortic Valve Trisinus/trileaflet aortic valve. Mild (1+) aortic valve insufficiency. Pulmonic Valve Normal pulmonic valve. Mild (1+) pulmonic valve insufficiency. Pericardium/Pleural No pericardial effusion. Moderate size left pleural effusion. MMode/2D Measurements & Calculations LVIDd: 4.1 cm IVSd: 0.91 cm LVOT diam: 1.9 cm LVIDs: 2.6 cm LVPWd: 1.0 cm LVOT area: 2.8 cm2 RVDd: 3.5 cm FS: 37.0 % _ LAV(MOD-bp): 64.9 ml LVAd ap4: 14.9 cm2 LVAd ap2: 16.2 cm2 LAV(MOD-bp) Indexed: 41.2 ml/m2 LVLd ap4: 5.7 cm LVLd ap2: 5.8 cm LAV(MOD-sp2): 75.1 ml EDV(MOD-sp4): 33.2 ml EDV(MOD- sp2): 38.2 ml LAV(MOD-sp4): 55.0 ml EDV(sp4-el): 33.1 ml EDV(sp2- el): 38.7 ml LVAs ap4: 9.4 cm2 LVAs ap2: 9.1 cm2 LVLs ap4: 5.3 cm LVLs ap2: 5.1 cm ESV(MOD-sp4): 14.6 ml ESV(MOD- sp2): 14.4 ml ESV(sp4-el): 14.2 ml ESV(sp2- el): 13.7 ml EF(MOD-sp4): 56.0 % EF(MOD- sp2): 62.2 % EF(sp4-el): 57.0 % _ SV(MOD-sp4): 18.6 ml SV(MOD-sp2): 23.7 ml SV(sp4-el): 18.8 ml SI(MOD-sp4): 11.8 ml/m2 SI(MOD-sp2): 15.1 ml/m2 _ Ao sinus diam: 3.1 cm LA dimension(2D): 3.9 cm LA A4 area: 19.8 cm2 _ RA A4 area: 13.5 cm2 TAPSE: 1.3 cm Time Measurements MV dec time: 0.15 sec Doppler Measurements & Calculations MV E max tony: 86.0 cm/sec Lat Peak E' Tony: 8.9 cm/sec Med Peak E' Tony: 6.6 cm/sec MV A max tony: 29.6 cm/sec E/E' lat: 9.7 E/E' med: 13.0 MV E/A: 2.9 _ Ao V2 max: 109.4 cm/sec AI max tony: 334.4 cm/sec MV dec slope: 562.6 cm/sec2 Ao max P.8 mmHg AI max P.7 mmHg Ao V2 mean: 70.4 cm/sec Ao mean P.3 mmHg AI dec slope: 189.1 cm/sec2 Ao V2 VTI: 26.3 cm AI P1/2t: 517.8 msec AV (velocity ratio): 0.84 BRADLEY(I,D): 2.3 cm2 BRADLEY(V,D): 2.2 cm2 _ LV V1 max: 88.2 cm/sec SV(LVOT): 61.5 ml PI end-d tony: 83.2 cm/sec LV V1 max P.1 mmHg LV V1 mean P.5 mmHg LV V1 mean: 55.7 cm/sec LV V1 VTI: 22.1 cm _ TR max tony: 291.9 cm/sec TR max P.1 mmHg ECHO/Echo Complete Interpretation Summary The global longitudinal strain = -16.8% (borderline). Stage 3 diastolic dysfunction. The left ventricular ejection fraction is 60 %. Mild (1+) aortic valve insufficiency. Moderate size left pleural effusion. Ordering Physician: Hazel Denson Referring Physician: Rachna Acosta Performed By: Leonarda Steinberg RDCS
== END | disposition home or self-care (01) ==
LOC: CVS 12:51
PROVIDERS: PCP Family Medicine; Referring Provider Physician Assistant Medical; Visit Provider Physician Assistant Medical
DX: I42.8 Other cardiomyopathies (principal); I50.9 Heart failure, unspecified
CPT/HCPCS: 93306

== ENCOUNTER → 2024-03-23 | Outpatient (CLI) | payer MEDICARE, SELFPAY ==
--- NOTE | 2024-03-23 10:35 | RAD_ITS ---
EXAM: XR Chest, 2 Views CLINICAL INDICATION: TECHNIQUE: Frontal and lateral views of the chest. COMPARISON: No relevant prior studies available. FINDINGS: LUNGS AND PLEURAL SPACES: See below. HEART: Cardiomegaly with pulmonary congestion and edema. Superimposed pneumonia cannot be excluded. MEDIASTINUM: Unremarkable. Normal mediastinal contour. BONES/JOINTS: Unremarkable. No acute fracture. RAD/Chest PA and Lateral IMPRESSION: Cardiomegaly with pulmonary congestion and edema. Superimposed pneumonia cannot be excluded. Reading Location: [facility]
== END | disposition home or self-care (01) ==
LOC: LAB 10:30
PROVIDERS: PCP Family Medicine; Referring Provider Physician Assistant Medical; Visit Provider Physician Assistant Medical
DX: J90 Pleural effusion, not elsewhere classified (principal)
CPT/HCPCS: 71046

== ENCOUNTER 2024-05-31 16:14 | Emergency (ER) | payer MEDICARE, SELFPAY ==
[2024-05-31 16:16] VITALS: BP 170/90; PULSE 81; RESP 30; TEMP 36.6; O2SAT 94; BMI 20.9
--- NOTE | 2024-05-31 16:29 | EKG12_ITS ---
Test Reason : CP Blood Pressure : */* mmHG Vent. Rate : 84 BPM Atrial Rate : 84 BPM P-R Int : 156 ms QRS Dur : 72 ms QT Int : 372 ms P-R-T Axes : 59 25 -8 degrees QTcB Int : 439 ms Normal sinus rhythm Low voltage QRS Nonspecific ST and T wave abnormality Abnormal ECG Confirmed by Merlin Ledezma ([id number]), international editorial producer KAVEH MARROQUIN ([id number]) on 06/01/2024 1:18:32 PM Referred By: NABOR/JEY Confirmed By: Merlin Ledezma
[2024-05-31] MEDS: Ketorolac 15 MG/ML Vial IV (16:45)
[2024-05-31] MEDS: HYDROcodone Bitartrate/Apap 5/325 Tablet PO (16:45)
--- NOTE | 2024-05-31 16:45 | RAD_ITS ---
PROCEDURE: CHEST PA AND LATERAL 05/31/2024 REASON FOR EXAM: DYSPNEA TECHNIQUE: Frontal and lateral views of the chest. COMPARISON: 03/23/2024 FINDINGS: Mild cardiomegaly. Unchanged moderate left pleural effusion with probable adjacent atelectasis. Right lung is relatively clear. No sizable pneumothorax. Mild emphysema. RAD/Chest PA and Lateral IMPRESSION: Unchanged cardiomegaly and moderate left pleural effusion. Reading Location: [facility]
[2024-05-31 16:46] VITALS: O2SAT 96
[2024-05-31 17:01] LABS: Absolute Lymphocyte Count 1.01 X10^3/uL (0.83-4.51); Absolute Neutrophil Count 3.6 X10^3/uL (2.0-7.7); Basophil% 1.8 % (0-1); Eosinophil# 0.13 X10^3/uL; Eosinophils% 2.3 % (0-5); Hematocrit 42.1 % (37-47); Hemoglobin 13.6 g/dL (12.0-15.0); Lymphocyte # 1.01 X10^3/ul (0.83-4.51); Lymphocyte % 17.9 % (19-41); Mean Corp Hgb Conc 32.3 g/dL (32-36); Mean Corpuscular Hgb 30.6 pg (27.0-32.0); Mean Corpuscular Volume 94.8 fL (81-99); Mean Platelet Vol. 10.3 fl (6.2-12.0); Monocyte# 0.74 X10^3/uL; Monocyte% 13.1 % (0-10); NRBC Flagged by Analyzer 0 % (0-5); Neutrophil # 3.62 X10^3/uL (2.7-7.7); Neutrophil % 64.4 % (47-70); Platelet Count 438 K/mm3 (150-450); RBC Distribution Width CV 13.8 % (11.6-14.6); RBC Distribution Width SD 48.1 fl (35.1-43.9); Red Blood Count 4.44 M/mm3 (4.2-5.4); White Blood Count 5.6 K/mm3 (4.4-11.0)
--- NOTE | 2024-05-31 17:09 | ED.VIS.DYS ---
HPI History of Present Illness Chief Complaint: Shortness of Breath Informant: patient and family (Daughter) Narrative Narrative: 79-year-old female presenting to the emergency room with dyspnea. Patient states that yesterday she was getting some pots out of a drawer she felt a pop in her upper back. Since that time she has had some pain with movement in the upper right back and feels short of breath when the pain comes. She denies any known lung conditions. Daughter states that she has had a pleural effusion on prior chest x-ray has not required drainage. She is on apixaban. There is a history of CHF but has not been causing a problem in recent weeks. Patient does see local cardiology. She does not wear home oxygen. No reported fevers. No history of pneumothorax. Former smoker. Patient believes that her dyspnea is most likely due to some component of anxiety as well as the pain when she moves. She has some Tylenol with codeine at home she took 1 today but did not help with the pain. She notes a cough due to postnasal drip which is unchanged. Patient has been able to sleep laying down and typically sleeps in a bit of an angle that has not noticed any change in that. Patient is on Eliquis. She has not missed any doses. [facility] Medical History Neuropathy Hyperlipidemia Vitamin D deficiency Osteoporosis Bilateral cataracts Non-ischemic cardiomyopathy History of bilateral breast cancer Bilateral pleural effusion Atrial flutter Home Medications ?Medication ?Instructions ?Recorded ?Last Taken ?Type lorazepam 0.5 mg tablet 0.5 mg PO DAILY PRN anxiety 11/02/22 11/27/22 History metoprolol tartrate 50 mg tablet 50 mg PO BID #180 tabs 11/02/22 02/21/23 Rx handicap Placcard #1 ea 12/20/22 Unknown Rx empagliflozin 10 mg tablet 10 mg PO DAILY #30 tabs 05/17/23 Unknown Rx (Jardiance) sacubitril 24 mg-valsartan 26 mg 1 tab PO BID #180 tabs 02/26/24 Unknown Rx tablet (Entresto) apixaban 5 mg tablet (Eliquis) 5 mg PO BID #180 tabs 04/06/24 Unknown Rx hydrocodone-acetaminophen 5-325mg 1 tab PO Q6H PRN PRN Pain 3 days 04/13/25 Unknown Rx 5mg-325mg #12 TABLETS Allergy/AdvReac Type Severity Reaction Status Date / Time No Known Allergies Allergy Verified 05/31/24 17:52 Family History Father Myocardial infarction Brother Myocardial infarction Surgical History History of partial mastectomy of left breast History of open reduction and internal fixation (ORIF) procedure Social History household members: spouse housing: house Smoking Status: Former smoker how long ago did patient quit smokin years alcohol intake: current alcohol intake frequency: 0-2 drinks per day Alcohol type: wine substance use type: does not use caffeine: No ROS ROS ED Constitutional Constitutional ED: Denies chills or weight loss Eyes Eyes: Denies change in vision or diplopia ENT ENT ED: Denies ear pain, rhinorrhea or sore throat Cardiovascular Cardiovascular: Denies chest pain, orthopnea, palpitations or racing heartbeat Respiratory/Chest Respiratory/Chest: Reports dyspnea; Denies cough or orthopnea Gastrointestinal Gastrointestinal: Denies abdominal pain, diarrhea, nausea or vomiting Genitourinary Genitourinary ED: Denies dysuria, hematuria or urinary frequency Musculoskeletal Musculoskeletal: Reports back pain; Denies arthralgias or myalgias Integumentary Denies abscess or rash Neurologic Neurologic: Denies headache(s) or weakness Psychiatric Psychiatric: Denies anxiety, depression, suicidal ideation or suicidal thoughts Endocrine Endocrinology: Denies polydipsia, polyphagia or polyuria Allergic/Immunologic Allergic/Immunologic ED: Denies mouth swelling, tongue swelling or urticaria EXAM Physical Exam Const Vital Signs: 05/31/24 16:16 05/31/24 16:46 05/31/24 17:16 Temperature 97.9 F Temperature Source Oral Pulse Rate 81 80 Respiratory Rate 30 H 19 H Respiratory Effort Normal Non-Labored Respiratory Depth Normal Respiratory Pattern Tachypnea Blood Pressure 170/90 H 112/65 Blood Pressure Mean 116 80 Pulse Ox 94 96 Oxygen Delivery Method Room Air Room Air Room Air 05/31/24 17:52 Temperature Temperature Source Pulse Rate 72 Respiratory Rate 18 Respiratory Effort Respiratory Depth Respiratory Pattern Blood Pressure 107/63 Blood Pressure Mean 77 Pulse Ox 90 Oxygen Delivery Method Room Air Positive well nourished and well developed General Appearance ED: well developed HEENT Reports normocephalic, head/scalp atraumatic and moist mucous membranes Eyes PERRL and EOMs intact bilaterally Neck no lymphadenopathy, supple and no JVD Resp normal respiratory effort and clear to auscultation bilaterally Resp Narrative: Diminished breath sounds on the left base. Patient appears to have a quiet tachypnea. Cardio regular rate, regular rhythm and no murmurs GI normal to inspection, nondistended, normoactive bowel sounds and non-tender Palpation: soft Back/Spine no CVA tenderness and normal ROM Back/Spine Narrative: Painful range of motion when she goes to sit up. No pain to palpation of the upper back. No redness swelling or erythema. There is a degree of kyphosis. Extremity normal to inspection General Extremety ED: Negative for edema General Extremity: Negative for edema Neuro oriented x3 and CN's II-XII intact bilaterally Sensorium / Orientation: alert Motor Exam: strength 5/5 throughout Psych mental status grossly normal Mood & Affect: anxious; Negative for depressed or tearful Skin no rashes or lesions noted and no wounds MDM MDM MDM Narrative Medical decision making narrative: Differential diagnosis includes but not limited to thoracic myofascial strain anxiety pleural effusion pulmonary embolism acute coronary syndrome cardiac dysrhythmia pneumothorax My independent interpretation plain films of the chest is moderate left pleural effusion with no significant change. EKG is nonischemic. Troponin is 14 with greater than 8 hours of symptoms. White count 5.6 hemoglobin 15.6 glucose 118. I doubt pulmonary embolism while on apixaban. The patient is more at ease after a dose of Toradol and [place]. She states her breathing is better. Family and I talked about whether or not she should have a pleural effusion drained. I do not think that something needs to be done emergently especially since she is on apixaban but may be something that she can talk with her doctors about having done as an outpatient. We talked about pros and cons of this as it has been more of a chronic effusion. At this point I think patient can be discharged home. History & Record Review Discussion w/independent historian: Patient and Family Lab Data Attestation: I reviewed the patient's lab results. Labs: Laboratory Results - last 24 hr 05/31/24 16:20 WBC 5.6 RBC 4.44 Hgb 13.6 Hct 42.1 MCV 94.8 MCH 30.6 MCHC 32.3 RDW Std Deviation 48.1 H RDW Coeff of Ingris 13.8 Plt Count 438 MPV 10.3 Immature Gran % (Auto) 0.500 Neut % (Auto) 64.4 Lymph % (Auto) 17.9 L Cabell % (Auto) 13.1 H Eos % (Auto) 2.3 Baso % (Auto) 1.8 H Absolute Neuts (auto) 3.6 Absolute Lymphs (auto) 1.01 Nucleated RBC % 0 Sodium 132 L Potassium 3.9 Chloride 95 L Carbon Dioxide 26.3 Anion Gap 11 BUN 17 Creatinine 0.73 Estim Creat Clear Calc 50.05 Est GFR (MDRD) Non-Af 85 BUN/Creatinine Ratio 23.2 H Glucose 118 H Calcium 9.6 Troponin T High Sens 14 Radiography Diagnostic Testing: Clinical Impression(s) from Imaging Studies Chest X-Ray 05/31/24 16:45 IMPRESSION: Unchanged cardiomegaly and moderate left pleural effusion. Reading Location: [facility] EKG Initial EKG: Attestation: I personally reviewed and interpreted this EKG as follows: Comments: Normal sinus rhythm ventricular rate of 84 bpm Discharge Plan Triage Chief Complaint: Shortness of Breath ED Provider: Omar Greene Dx/Rx/DC Orders Clinical Impression: Pleural effusion, Acute thoracic myofascial strain, Acute dyspnea Instructions: ED Pleural Effusion, ED Chest Wall Strain Prescriptions: New hydrocodone-acetaminophen 5-325 mg tablet 1 tab PO Q6H PRN PRN (Reason: Pain) 3 Days Qty: 12 0RF No Action lorazepam 0.5 mg tablet 0.5 mg PO DAILY PRN (Reason: anxiety) metoprolol tartrate 50 mg tablet 50 mg PO BID Qty: 180 3RF (DME) handicap Placcard See Rx Instructions .Route .MEDSUPPLY Qty: 1 0RF Rx Instructions: Dx: Cardiomyopathy Expires: 12/2027 Jardiance 10 mg tablet 10 mg PO DAILY Qty: 30 11RF Entresto 24-26 mg tablet 1 tab PO BID Qty: 180 3RF Eliquis 5 mg tablet 5 mg PO BID Qty: 180 3RF Primary Care Provider: Rachna Acosta Referrals: Rachna Acosta DO [Primary Care Provider] - 1 Week Print Language: Polish Disposition Disposition: Home, Self Care
[2024-05-31 17:16] VITALS: BP 112/65; PULSE 80; RESP 19; O2SAT 96
[2024-05-31 17:20] LABS: Anion Gap 11 (5-15); BUN 17 mg/dL (4-19); BUN/Creat Ratio 23.2 RATIO (10-20); Calcium,Total 9.6 mg/dL (7.6-11.0); Carbon Dioxide 26.3 mmol/L (21.0-32.0); Chloride 95 mmol/L (98-108); Creatinine, Serum 0.73 mg/dL (0.70-1.20); EST Glomerular Filtration Rate 85 (>60); Estimated Creatinine Clearance 50.05 ml/min (50-250); Glucose 118 mg/dL (70-99); Potassium 3.9 mmol/L (3.3-5.1); Sodium Level 132 mmol/L (133-145); Troponin T High Sensitivity 14 ng/L (<=14)
[2024-05-31 17:52] VITALS: BP 107/63; PULSE 72; RESP 18; O2SAT 90
[2024-05-31 18:57] VITALS: BP 123/75; PULSE 77; RESP 18; TEMP 36.8; O2SAT 92
== END 2024-05-31 18:58 | disposition home or self-care (01) ==
PROVIDERS: Emergency Provider Emergency Medicine; PCP Family Medicine; Visit Provider Emergency Medicine
DX: I50.9 Heart failure, unspecified (principal); S29.012A Strain of muscle and tendon of back wall of thorax, initial encounter; X58.XXXA Exposure to other specified factors, initial encounter; E78.5 Hyperlipidemia, unspecified; Z79.01 Long term (current) use of anticoagulants; Z79.84 Long term (current) use of oral hypoglycemic drugs; Z79.899 Other long term (current) drug therapy; Z87.891 Personal history of nicotine dependence
CPT/HCPCS: 36415; 71046; 80048; 84484; 85025; 93005; 96374; 99284; A4216

== ENCOUNTER → 2024-06-03 | Outpatient (CLI) | payer MEDICARE, SELFPAY ==
--- NOTE | 2024-06-03 | FLU_PTH ---
PATIENT: CRISELDA STORM LOC: [facility]#:[id number] AGE/SX: 79/F ROOM: RE06/03/[address]: Dr. Rachna Acosta DO : 1945 BED: DIS: 06/03/2024 SPEC #: [id number] RECD: 06/03/24 09:19 STATUS: RONDA DAVID #: [id number] HARSHA: 06/03/24 00:[address]: Rachna Acosta DEPT: CYTOLOGY RECD BY: Reji Gillespie Tissues: A - THORACIC FLUID Procedures: Special Stain Group II Surgery Specimen Level IV Cytospin Fluid HEADER OPERATION: Ultrasound guided thoracentesis fluid PRE-OP DIAGNOSIS: Pleural effusion TISSUE SUBMITTED: A- Thoracentesis fluid for cytology DIAGNOSIS CYTOLOGY A. Pleural fluid: * No malignant cells are identified A. CYTOLOGY STUDY Slides are reviewed. CYTOLOGY GROSS A. Received is 85 ml of hazy-yellow fluid labeled with the patient's name and and designated per the requisition as Thoracentesis fluid. Submitted for cytology and cell block preparation. 06/03/2024 CPT: 17830
[2024-06-03 08:42] VITALS: BP 159/75; PULSE 76; RESP 18; TEMP 36.4; O2SAT 99
[2024-06-03] MEDS: Lidocaine 2% (20 ml mdv) 20 ML Vial INFILT (08:48)
[2024-06-03 08:57] VITALS: BP 135/77; PULSE 92; RESP 18; O2SAT 96
--- NOTE | 2024-06-03 09:00 | RAD_ITS ---
EXAM: Frontal inspiration expiration views. CLINICAL HISTORY: Status post left thoracentesis. COMPARISON: Comparison is made with prior study dated May 31, 2024. TECHNIQUE: AP inspiration expiration views were obtained. FINDINGS: The patient is status post left thoracentesis. No evidence of pneumothorax. Mild residual left pleural-parenchymal changes. RAD/Chest Insp/Exp 2 View IMPRESSION: No evidence of pneumothorax on the immediate post left thoracentesis examinaemely serrato Reading Location: [facility]
[2024-06-03 09:02] VITALS: BP 104/72; PULSE 87; RESP 18; O2SAT 93
--- NOTE | 2024-06-03 09:04 | PCM.OPRPT ---
Problems Associated Problem List Diagnoses (1) Pleural effusion: (2) Shortness of breath: Multi Select Codes Radiology Radiology US Procedures: 18556 Thoracentesis Operative Report (Standard) Operative Information Date of Procedure: 06/03/24 Pre-Operative Diagnosis: Pleural effusion Post-Operative Diagnosis: Pleural effusion Surgery/Procedure Performed: Ultrasound-guided thoracentesis chief security officer: No Type of Anesthesia: Local Procedure Start Time: 08:43 Procedure Stop Time: 08:58 Select all DRAINS/GRAFTS/IMPLANTS that apply: None Estimated Blood Loss: 0 Specimen collected: Yes Description of specimen(s) removed: 100 mL of clear yellow fluid Description of surgery: PROCEDURE: Ultrasound Guided Thoracentesis ORDERING PROVIDER: Dr. Rachna Acosta INDICATION: Female, 79 years old. Pleural effusion. PROVIDER: ANKIT Tarango PROCEDURE: The risks, benefits, and alternatives to the procedure were explained to the patient. The specific risks of bleeding, infection, and pneumothorax requiring chest tube insertion were discussed and accepted. Written informed consent was obtained. The patient is noted to be on Eliquis and it was held preprocedure. This was discussed with Dr. Pandya who agreed to proceed. The patient was placed in the sitting, upright position. Ultrasonographic evaluation of the bilateral lower pleural spaces was carried out. An adequate pocket was identified in the left lower pleural space. The overlying skin was prepped with chlorhexidine and draped in sterile fashion. 2 % lidocaine was administered subcutaneously for local anesthesia. Under ultrasound guidance, a 5-Ecuadorean thoracentesis needle/catheter system was advanced into the left posterior lower pleural fluid collection. 900 ml of clear yellow colored fluid was drained. A sample was sent to the lab for diagnostic purposes. The catheter was removed, and a sterile dressing was applied. The patient tolerated the procedure well. A chest x-ray was ordered and personally interpreted by myself and Dr. Pandya. There was no evidence of pneumothorax. There were no immediate complications. The procedure was proctored by interventional radiologist Dr. Pandya. IMPRESSION: Successful ultrasound guided thoracentesis of left pleural effusion. Surgical Findings: None Complications Complications: No
[2024-06-03 09:08] VITALS: BP 115/64; PULSE 84; RESP 18; O2SAT 94
[2024-06-03 11:28] LABS: Cytology, Body Fluid / CSF SEE PATHOLOGY REPORT
[2024-06-03 13:19] LABS: LDH,Body Fluid 74 Units/L (Not Establ.); Protein, Body Fluid 4.2 g/dL (Not Establ.)
[2024-06-03 13:28] LABS: Glucose, Body Fluid 92 mg/dL (Not Establ.)
== END | disposition home or self-care (01) ==
PROVIDERS: PCP Family Medicine; Referring Provider Family Medicine; Visit Provider Family Medicine
DX: J90 Pleural effusion, not elsewhere classified (principal); R06.02 Shortness of breath
CPT/HCPCS: 32555; 71046; 82945; 83615; 84157; 88108; 88305; 88313

== ENCOUNTER → 2024-06-24 | Outpatient (CLI) | payer MEDICARE, SELFPAY ==
--- NOTE | 2024-06-24 14:30 | RAD_ITS ---
PROCEDURE: CHEST PA AND LATERAL 06/24/2024 REASON FOR EXAM: DYSPNEA TECHNIQUE: Frontal and lateral views of the chest. COMPARISON: Chest x-ray dated 06/03/2024. FINDINGS: Large left-sided pleural effusion is present occupying greater than 60% of the left hemithorax. Underlying mass can not be ruled out. Surgical clips seen within the right lower lung zone. Right basilar infiltrate is also present. Mild vascular congestion is present. No pneumothorax. RAD/Chest PA and Lateral IMPRESSION: Large left-sided pleural effusion, significantly increased since prior examinat ion. Follow-up until complete resolution. Underlying masses can not be ruled out. Reading Location: [facility]
[2024-06-24 17:41] LABS: Absolute Lymphocyte Count 0.99 X10^3/uL (0.83-4.51); Absolute Neutrophil Count 3.8 X10^3/uL (2.0-7.7); Basophil# 0.09 X10^3/uL; Basophil% 1.5 % (0-1); Eosinophil# 0.17 X10^3/uL; Eosinophils% 2.9 % (0-5); Hematocrit 37.8 % (37-47); Hemoglobin 12.3 g/dL (12.0-15.0); Lymphocyte # 0.99 X10^3/ul (0.83-4.51); Mean Corp Hgb Conc 32.5 g/dL (32-36); Mean Corpuscular Hgb 30.9 pg (27.0-32.0); Mean Platelet Vol. 10.5 fl (6.2-12.0); Monocyte# 0.73 X10^3/uL; Monocyte% 12.5 % (0-10); NRBC Flagged by Analyzer 0 % (0-5); Neutrophil # 3.82 X10^3/uL (2.7-7.7); Neutrophil % 65.8 % (47-70); Platelet Count 395 K/mm3 (150-450); RBC Distribution Width CV 14.3 % (11.6-14.6); RBC Distribution Width SD 49.5 fl (35.1-43.9); Red Blood Count 3.98 M/mm3 (4.2-5.4); White Blood Count 5.8 K/mm3 (4.4-11.0)
[2024-06-24 18:20] LABS: ALB/GLOB Ratio 1.2 RATIO (0.9-2.4); AST(SGOT) 16 U/L (<=31); Alanine Aminotransfer ALT/SGPT 7 U/L (<=34); Albumin, Serum 3.8 g/dL (3.4-4.8); Alkaline Phosphatase 144 U/L (35-104); Anion Gap 17 (5-15); BUN 14 mg/dL (4-19); BUN/Creat Ratio 19.5 RATIO (10-20); Calcium,Total 9.2 mg/dL (7.6-11.0); Carbon Dioxide 20.4 mmol/L (21.0-32.0); Chloride 98 mmol/L (98-108); Creatinine, Serum 0.71 mg/dL (0.70-1.20); EST Glomerular Filtration Rate 87 (>60); Globulin 3.2 g/dL (2.2-4.2); Glucose 102 mg/dL (70-99); Potassium 4.3 mmol/L (3.3-5.1); Sodium Level 135 mmol/L (133-145); Total Bilirubin 0.44 mg/dL (0.00-1.30)
== END | disposition home or self-care (01) ==
LOC: MTLAB 14:27
PROVIDERS: PCP Family Medicine; Referring Provider Family Medicine; Visit Provider Family Medicine
DX: R06.00 Dyspnea, unspecified (principal); E78.1 Pure hyperglyceridemia
CPT/HCPCS: 36415; 71046; 80053; 84443; 85025

== ENCOUNTER → 2024-08-14 | Outpatient (CLI) | payer MEDICARE, SELFPAY ==
--- NOTE | 2024-08-14 07:55 | US_ITS ---
PROCEDURE: THORACENTESIS W US 08/14/2024 REASON FOR EXAM: RECURRENT PLEURAL EFFUSION TECHNIQUE: THORACENTESIS W US, left COMPARISON: Prior thoracentesis of 06/03/2024. FINDINGS: Following informed consent, and using standard sterile technique, an ultrasound- guided left thoracentesis was performed via a posterior approach. 2% lidocaine local anesthesia was followed by placement of a 5 [place] catheter into the fluid collection. Approximately 650 mL slightly blood-tinged fluid was successfully removed. No complication was encountered, the patient left the department good condition without significant complaint. US/Thoracentesis W US IMPRESSION: Successful left sided ultrasound-guided therapeutic thoracentesis. Reading Location: [place] [id number]
[2024-08-14 08:10] VITALS: BP 117/62; PULSE 77; RESP 18; O2SAT 97
[2024-08-14] MEDS: Lidocaine 2% (20 ml mdv) 20 ML Vial INFILT (08:26)
[2024-08-14 08:47] VITALS: BP 128/68; PULSE 82; RESP 18; O2SAT 95
[2024-08-14 08:49] VITALS: BP 126/69; PULSE 80; RESP 18; O2SAT 95
== END | disposition home or self-care (01) ==
PROVIDERS: PCP Family Medicine
DX: J90 Pleural effusion, not elsewhere classified (principal)
CPT/HCPCS: 32555

== ENCOUNTER → 2024-08-18 | Outpatient (CLI) | payer MEDICARE, SELFPAY ==
--- NOTE | 2024-08-18 10:50 | RAD_ITS ---
PROCEDURE: CHEST PA AND LATERAL 08/18/2024 REASON FOR EXAM: POST THORACENTISIS X-RAY BASELINE TECHNIQUE: CHEST PA AND LATERAL COMPARISON: 06/24/2024 FINDINGS: Status post left-sided thoracentesis, there is a persistent moderate left effusion with introduction of air component. Small decrease in the fluid component. In addition to loculated air, there is a left apical pneumothorax, extending 13 mm from the inner chest wall. Underlying atelectasis/consolidation. There is faint airspace disease at the right lung base. There is background emphysema and smoking-related interstitial lung disease. Normal heart size. Thoracic spine scoliosis. RAD/Chest PA and Lateral IMPRESSION: Status post left-sided thoracentesis, small improvement in now moderate, partia lly loculated effusion, with loculated air component and also apical pneumothorax component. Persistent right base faint airspace disease. Reading Location: [facility]
== END | disposition home or self-care (01) ==
LOC: RAD 10:46
PROVIDERS: PCP Family Medicine; Referring Provider Nurse Practitioner Family; Visit Provider Nurse Practitioner Family
DX: I42.8 Other cardiomyopathies (principal); I48.92 Unspecified atrial flutter; J90 Pleural effusion, not elsewhere classified
CPT/HCPCS: 71046

== ENCOUNTER → 2024-09-01 | Outpatient (CLI) | payer MEDICARE, SELFPAY ==
--- NOTE | 2024-09-01 08:25 | RAD_ITS ---
EXAM: XR Chest, 2 Views CLINICAL INDICATION: PLEURAL EFUSSION EVALUATION TECHNIQUE: Frontal and lateral views of the chest. COMPARISON: XR Chest dated 08/18/2024 FINDINGS: LUNGS AND PLEURAL SPACES: Bibasilar atelectasis or pneumonia. Left pleural effusion. No pneumothorax. HEART: Unremarkable. No cardiomegaly. MEDIASTINUM: Unremarkable. Normal mediastinal contour. BONES/JOINTS: Unremarkable. No acute fracture. RAD/Chest PA and Lateral IMPRESSION: 1. Bibasilar atelectasis or pneumonia. 2. Left pleural effusion. Reading Location: [facility]
--- NOTE | 2024-09-01 08:25 | RAD_ITS ---
EXAM: XR Chest, 2 Views CLINICAL INDICATION: PLEURAL EFUSSION EVALUATION TECHNIQUE: Frontal and lateral views of the chest. COMPARISON: XR Chest dated 08/18/2024 FINDINGS: LUNGS AND PLEURAL SPACES: Bibasilar atelectasis or pneumonia. Left pleural effusion. No pneumothorax. HEART: Unremarkable. No cardiomegaly. MEDIASTINUM: Unremarkable. Normal mediastinal contour. BONES/JOINTS: Unremarkable. No acute fracture. RAD/Chest PA and Lateral IMPRESSION: 1. Bibasilar atelectasis or pneumonia. 2. Left pleural effusion. Reading Location: [facility]
== END | disposition home or self-care (01) ==
LOC: RAD 08:21
PROVIDERS: PCP Family Medicine; Referring Provider Nurse Practitioner Family; Visit Provider Nurse Practitioner Family
DX: J90 Pleural effusion, not elsewhere classified (principal); I50.9 Heart failure, unspecified; I48.92 Unspecified atrial flutter; I42.8 Other cardiomyopathies
CPT/HCPCS: 71046

== ENCOUNTER → 2024-10-01 | Outpatient (CLI) | payer MEDICARE, SELFPAY ==
--- NOTE | 2024-10-01 12:55 | RAD_ITS ---
PROCEDURE: CHEST PA AND LATERAL 10/01/2024 REASON FOR EXAM: SHORTNESS OF BREATH, HX BILAT. PLEURAL EFFUSIONS TECHNIQUE: CHEST PA AND LATERAL COMPARISON: Chest x-ray 09/01/2024. FINDINGS: Heart: Heart size is mildly enlarged. Tortuous thoracic aorta. Mediastinum: The mediastinal contour is stable. Lungs: Redemonstration of right lower lobe airspace disease. Left small pleural effusion. Previously seen left apical pneumothorax is not appreciated in current study. Bones: Degenerative changes are identified within the thoracic spine. Other: Multiple clips within right lower lung as well as anterior mediastinum. RAD/Chest PA and Lateral IMPRESSION: Redemonstration of right lower lung airspace disease, unchanged since prior davey dy. Small left pleural effusion. Reading Location: [id number]
[2024-10-01 13:52] LABS: Hematocrit 36.5 % (37-47); Hemoglobin 11.9 g/dL (12.0-15.0); Immature Granulocytes Count 0.030 X10^3/uL (0.0-0.0); Mean Corp Hgb Conc 32.6 g/dL (32-36); Mean Corpuscular Volume 93.8 fL (81-99); Mean Platelet Vol. 9.9 fl (6.2-12.0); NRBC Flagged by Analyzer 0 % (0-5); Platelet Count 551 K/mm3 (150-450); RBC Distribution Width CV 14.2 % (11.6-14.6); RBC Distribution Width SD 49.1 fl (35.1-43.9); Red Blood Count 3.89 M/mm3 (4.2-5.4); White Blood Count 5.9 K/mm3 (4.4-11.0)
[2024-10-01 15:05] LABS: Anion Gap 15 (5-15); BUN 19 mg/dL (4-19); BUN/Creat Ratio 23.2 RATIO (10-20); Calcium,Total 9.7 mg/dL (7.6-11.0); Carbon Dioxide 25.5 mmol/L (21.0-32.0); Chloride 94 mmol/L (98-108); Glucose 90 mg/dL (70-99); Potassium 4.4 mmol/L (3.3-5.1); Pro- Brain NATRIURETIC PEPTIDE 1877 pg/mL (<=1800)
== END | disposition home or self-care (01) ==
LOC: LAB 12:39
PROVIDERS: PCP Family Medicine; Referring Provider Nurse Practitioner Family; Visit Provider Nurse Practitioner Family
DX: R06.02 Shortness of breath (principal); I50.9 Heart failure, unspecified; I42.8 Other cardiomyopathies; J90 Pleural effusion, not elsewhere classified; A04.72 Enterocolitis due to Clostridium difficile, not specified as recurrent; K58.9 Irritable bowel syndrome, unspecified
CPT/HCPCS: 36415; 71046; 80048; 83880; 85025

== ENCOUNTER → 2024-11-03 | Outpatient (CLI) | payer MEDICARE, SELFPAY ==
--- NOTE | 2024-11-03 10:26 | RAD_ITS ---
PROCEDURE: CHEST PA AND LATERAL 11/03/2024 REASON FOR EXAM: SOB TECHNIQUE: Procedure Code: RADCXR Modality: DX Procedure: CHEST PA AND LATERAL COMPARISON: August 18, 2024 FINDINGS: Hardware: None Heart: Enlarged Mediastinum: Aorta is atherosclerotic. Lungs: Consolidation in the lingula and left lower lobe along with some pleural fluid. No change. Bones: There is exaggeration of the thoracic kyphosis related to anterior wedge compression fractures in the midthoracic spine. Additionally some biconcave compression fractures are seen in the lower thoracic spine. RAD/Chest PA and Lateral IMPRESSION: No significant change in the appearance of the left lung consolidation and pleu ral fluid. No pneumothorax. Reading Location: [id number]
== END | disposition home or self-care (01) ==
LOC: RAD 10:23
PROVIDERS: PCP Family Medicine; Referring Provider Nurse Practitioner Family; Visit Provider Nurse Practitioner Family
DX: R06.02 Shortness of breath (principal); I50.9 Heart failure, unspecified; I42.8 Other cardiomyopathies; J90 Pleural effusion, not elsewhere classified
CPT/HCPCS: 71046

== ENCOUNTER → 2024-12-25 | Outpatient (CLI) | payer MEDICARE, SELFPAY ==
--- NOTE | 2024-12-25 10:53 | RAD_ITS ---
PROCEDURE: RAD/L/S Spine Min 4 Views
== END | disposition home or self-care (01) ==
LOC: MTRAD 10:52
PROVIDERS: PCP Family Medicine; Referring Provider Family Medicine; Visit Provider Family Medicine
DX: M54.9 Dorsalgia, unspecified (principal)
CPT/HCPCS: 72110

== ENCOUNTER → 2025-01-04 | Outpatient (CLI) | payer MEDICARE, SELFPAY ==
--- NOTE | 2025-01-04 12:57 | RAD_ITS ---
EXAM: XR Chest, 2 Views CLINICAL INDICATION: SOB TECHNIQUE: Frontal and lateral views of the chest. COMPARISON: No relevant prior studies available. FINDINGS: LUNGS AND PLEURAL SPACES: Left basilar atelectasis or pneumonia. Left pleural effusion. HEART: Cardiomegaly with mild congestion. MEDIASTINUM: Unremarkable. Normal mediastinal contour. BONES/JOINTS: Unremarkable. No acute fracture. RAD/Chest PA and Lateral IMPRESSION: 1. Left basilar atelectasis or pneumonia. 2. Cardiomegaly with mild congestion. 3. Left pleural effusion. Reading Location: [id number]
== END | disposition home or self-care (01) ==
PROVIDERS: PCP Family Medicine; Referring Provider Nurse Practitioner Family; Visit Provider Nurse Practitioner Family
DX: I42.8 Other cardiomyopathies (principal); I50.9 Heart failure, unspecified; J90 Pleural effusion, not elsewhere classified
CPT/HCPCS: 71046

== ENCOUNTER → 2025-01-26 | Outpatient (CLI) | payer MEDICARE, SELFPAY | END | disposition home or self-care (01) | LOC: LABSPEC 13:03 | PROVIDERS: PCP Family Medicine; Visit Provider Nurse Practitioner Family | DX: N39.0 Urinary tract infection, site not specified (principal) | CPT/HCPCS: 87077; 87086; 87088; 87186 ==

== ENCOUNTER → 2025-02-01 | Outpatient (CLI) | payer MEDICARE, SELFPAY ==
[2025-02-01 18:34] LABS: Anion Gap 13 (5-15); BUN 43 mg/dL (4-19); BUN/Creat Ratio 33.3 RATIO (10-20); Calcium,Total 9.8 mg/dL (7.6-11.0); Carbon Dioxide 25.2 mmol/L (21.0-32.0); Chloride 99 mmol/L (98-108); Glucose 111 mg/dL (70-99); Potassium 5.3 mmol/L (3.3-5.1)
== END | disposition home or self-care (01) ==
LOC: LAB 16:38
PROVIDERS: PCP Family Medicine; Referring Provider Nurse Practitioner Family; Visit Provider Nurse Practitioner Family
DX: I42.8 Other cardiomyopathies (principal); I50.9 Heart failure, unspecified; I48.92 Unspecified atrial flutter; J90 Pleural effusion, not elsewhere classified
CPT/HCPCS: 36415; 80048

== ENCOUNTER 2025-02-11 19:45 | Inpatient (IN) | payer MEDICARE, SELFPAY ==
[2025-02-11 19:45] VITALS: BP 115/79; PULSE 68; RESP 18; TEMP 35.8; O2SAT 99
[2025-02-11 19:55] VITALS: O2SAT 99; BMI 19.1
--- NOTE | 2025-02-11 20:05 | EX.ED.GENINJ ---
HPI History of Present Illness Chief Complaint: Fall Informant: patient and family Narrative Narrative: Patient is a 79-year-old female with history of atrial flutter (on Eliquis), CHF and nonischemic cardiomyopathy as well as bilateral pleural effusions presenting after mechanical fall. She was stepping into her daughter's kitchen when she somehow lost her balance and fell backwards. She hit the back of her head and also injured her left shoulder. No report of loss of consciousness. Family able to help her up. She is complain of significant pain in her left shoulder. Brought in for further evaluation. States has been feeling okay the past few days. Daughter does note that she had a recent medication change and then had issues with elevated heart rate and low blood pressure. Her daughter switched her off of the spironolactone and restarted her metoprolol which she previously been on and had been tolerating well. [facility] Medical History Neuropathy Hyperlipidemia Vitamin D deficiency Osteoporosis Bilateral cataracts Non-ischemic cardiomyopathy History of bilateral breast cancer Bilateral pleural effusion Atrial flutter Home Medications ?Medication ?Instructions ?Recorded ?Last Taken ?Type handicap Placcard #1 ea 12/20/22 Unknown Rx sacubitril 24 mg-valsartan 26 mg 1 tab PO BID #180 tabs 02/26/24 Unknown Rx tablet (Entresto) apixaban 5 mg tablet (Eliquis) 5 mg PO BID #180 tabs 04/06/24 Unknown Rx empagliflozin 10 mg tablet 10 mg PO DAILY #30 tabs 06/08/24 Unknown Rx (Jardiance) budesonide-formoterol HFA 160 2 puff inhalation BID PRN 11/03/24 Unknown History mcg-4.5 mcg/actuation aerosol shortness of breath or wheezing inhaler (Breyna) furosemide 40 mg tablet 40 mg PO DAILY weight gain 01/25/25 Unknown History spironolactone 25 mg tablet 25 mg PO DAILY #30 tabs 01/25/25 Unknown Rx Held on 02/11/25. Instructions: for low BP metoprolol tartrate 50 mg tablet 50 mg PO BID 02/11/25 Unknown History Allergy/AdvReac Type Severity Reaction Status Date / Time No Known Allergies Allergy Verified 02/11/25 19:45 Family History Father Myocardial infarction Brother Myocardial infarction Surgical History Hx of atrioventricular node ablation History of thoracentesis (08/14/24) History of partial mastectomy of left breast History of open reduction and internal fixation (ORIF) procedure Social History household members: spouse housing: house Smoking Status: Former smoker how long ago did patient quit smokin years alcohol intake: current alcohol intake frequency: 0-2 drinks per day Alcohol type: wine substance use type: does not use caffeine: No ROS ROS ED Constitutional Constitutional ED: Denies chills or fever(s) Eyes Eyes: Denies blurry vision Cardiovascular Cardiovascular: Denies chest pain, palpitations or racing heartbeat Respiratory/Chest Respiratory/Chest: Denies cough or dyspnea Gastrointestinal Gastrointestinal: Denies abdominal pain, nausea or vomiting Musculoskeletal Musculoskeletal: Reports other Details: Left shoulder pain Neurologic Neurologic: Denies headache(s), paresthesias or weakness Hematologic/Lymphatic Hematologic/Lymphatic: Reports easy bleeding, easy bruising and other Details: On Eliquis EXAM Physical Exam Const Vital Signs: 02/11/25 19:45 02/11/25 19:55 02/11/25 21:42 Temperature 96.5 F L Temperature Source Temporal Pulse Rate 68 73 Respiratory Rate 18 16 Respiratory Effort Normal Non-Labored Respiratory Depth Normal Respiratory Pattern Normal Blood Pressure 115/79 92/56 L Blood Pressure Mean 91 68 Pulse Ox 99 99 97 Oxygen Delivery Method Room Air Room Air Room Air 02/11/25 23:00 02/11/25 23:00 Temperature 97.8 F Temperature Source Pulse Rate 65 65 Respiratory Rate 16 16 Respiratory Effort Respiratory Depth Respiratory Pattern Blood Pressure 97/60 97/60 Blood Pressure Mean 72 72 Pulse Ox 98 98 Oxygen Delivery Method Room Air Positive well nourished and well developed General Appearance ED: well developed and NAD HEENT HEENT Narrative: Hearing aids in place. No nasal septal hematoma. No epistaxis. atraumatic Eyes PERRL and EOMs intact bilaterally Neck full ROM Neck Narrative: No step-off sign or midline tenderness General: Negative for tenderness Chest Wall inspection of chest normal and palpation of chest normal Resp normal respiratory effort and clear to auscultation bilaterally Cardio regular rhythm and no murmurs Cardio Narrative: 2+ radial pulses Rate: regular rate GI normal to inspection, nondistended, normoactive bowel sounds and non-tender Extremity Extremity Narrative: No obvious deformity of the left shoulder but she does have mild tenderness palpation of the proximal/anterior humerus. Decreased range of motion of the shoulder. 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 Neuro oriented x3, CN's II-XII intact bilaterally, moves all extremities, no focal motor deficits and no sensory deficits noted Psych mental status grossly normal Skin no rashes or lesions noted and no wounds MDM MDM MDM Narrative Medical decision making narrative: Patient is evaluated after reported mechanical fall. She is complaining significant pain with decreased range of motion of her left shoulder. She did hit her head when she fell and is on Eliquis. Differential includes shoulder dislocation, AC joint separation, humerus fracture, intracranial hemorrhage, skull fracture close head injury. In addition daughter notes that last week or so she was having episodes of high heart rate and low blood pressure and the daughter had put her back on her metoprolol and stopped her spironolactone. Will check some basic labs because of this. As lab work shows a mild leukocytosis of 10.1 which is downtrending over the last year. Her BUN is mildly elevated at 30 and she has mild hyponatremia of 132 with a bicarb of 18. Her anion gap is normal. Is given a 250 cc bolus of normal saline. Rectal exam is added on given worsening anemia in the setting of chronic anticoagulation on Eliquis. She has brown stool on exam but is Hemoccult positive. CT of the brain initially shows questionable artifact versus trace punctate hyperdensities of the right frontal lobe which could be intraparenchymal hemorrhage. No other acute traumatic injuries found. Case is discussed with radiologist who feels that repeat CT imaging to see if we get a better view would be reasonable course of action. Repeat CT thankfully is more consistent with artifact does not show intraparenchymal hemorrhage. Because that patient is not required to transfer from a trauma standpoint. Her x-ray reviewed by myself as well as radiology does show proximal humerus fracture at the surgical neck. This is discussed with orthopedics, Dr. Lagunas, who agrees that this is nonoperative. We treated with pain control and sling. Patient is given aliquots of fentanyl in the emergency room with no significant proving of her pain. She is neuro vascularly intact distally. Low concern for acute vascular or nerve injury. Is placed in a sling. Discussed admission for pain control PT OT and patient and family feel more comfortable with this. Patient is given further morphine for pain control in the ER. Case discussed with hospitalist for admission Lab Data Attestation: I reviewed the patient's lab results. Labs: Laboratory Results - last 24 hr 02/11/25 20:18 WBC 7.9 RBC 3.35 L Hgb 10.1 L Hct 32.0 L MCV 95.5 MCH 30.1 MCHC 31.6 L RDW Std Deviation 53.1 H RDW Coeff of Ingris 15.3 H Plt Count 419 MPV 10.0 Immature Gran % (Auto) 0.400 Neut % (Auto) 83.8 H Lymph % (Auto) 7.0 L Hamlin % (Auto) 6.1 Eos % (Auto) 1.6 Baso % (Auto) 1.1 H Absolute Neuts (auto) 6.6 Absolute Lymphs (auto) 0.55 L Nucleated RBC % 0 Sodium 132 L Potassium 4.4 Chloride 98 Carbon Dioxide 18.0 L Anion Gap 17 BUN 30 H Creatinine 1.09 Estim Creat Clear Calc 33.91 L Est GFR (MDRD) Non-Af 52 L BUN/Creatinine Ratio 27.4 H Glucose 96 Calcium 8.8 Radiography Diagnostic Testing: Clinical Impression(s) from Imaging Studies Brain CT 02/11/25 20:25 IMPRESSION: 1. Trace punctate hyperdensities in the right frontal lobe questionable for artifactual versus trace intraparenchymal hemorrhage. Attention to short-term follow-up. 2. No acute transcortical infarct. 3. No acute fracture or dislocation in the cervical spine. Reading [facility] Cervical Spine CT 02/11/25 20:25 IMPRESSION: 1. Trace punctate hyperdensities in the right frontal lobe questionable for artifactual versus trace intraparenchymal hemorrhage. Attention to short-term follow-up. 2. No acute transcortical infarct. 3. No acute fracture or dislocation in the cervical spine. Reading Location: [id number] Shoulder X-Ray 02/11/25 20:35 IMPRESSION: Acute displaced left humerus fracture along the surgical neck. Partially visualized pleural effusion. Reading Location: [facility] Brain CT 02/11/25 21:10 IMPRESSION: The previously seen punctate hyperdensities in the right frontal lobe are favored to be artifact. No CT evidence of acute intracranial hemorrhage, transcortical infarct, or significant mass effect. No other significant changes. Reading Location: [id number] Management Discussion w/another healthcare provider: Hospitalist, Conservation Enforcement Officer and Radiologist Discharge Plan Dx/Rx/DC Orders Clinical Impression: Closed fracture of left proximal humerus, Anemia, Chronic anticoagulation, Fecal occult blood test positive, Fall, Closed head injury Disposition Disposition: Acute Care Hospital [facility]
[2025-02-11] MEDS: fentaNYL 100 MCG/2 ML Ampul 50 MCG IV ×2 (20:16→21:38)
--- NOTE | 2025-02-11 20:25 | CT_ITS ---
PROCEDURE: BRAIN/HEAD WITHOUT CONTRAST; SPINE CERVICAL WITHOUT CONTRAS 02/11/2025 REASON FOR EXAM: HEAD TRAUMA; TRAUMA TECHNIQUE: Procedure Code: CTBR; CTSPC Modality: CT Procedure: BRAIN/HEAD WITHOUT CONTRAST; SPINE CERVICAL WITHOUT CONTRAS Coronal and Sagittal reconstruction series were provided. One or more dose reduction techniques were used (e.g., Automated exposure control, adjustment of the mA and/or kV according to patient size, use of iterative reconstruction technique. RADIATION DOSE SUMMARY: DLP: 1096.46 mGycm COMPARISON: None available. FINDINGS: CT HEAD: Trace punctate hyperdensities in the right frontal lobe (series 2, image 35). No acute transcortical infarct. Patchy nonspecific periventricular and subcortical white matter hypodensities likely reflect chronic microvascular ischemic changes. No significant mass effect or brain herniation. Global cerebral volume loss. No hydrocephalus. No extra-axial fluid collection. The basal cisterns are patent. The mastoid air cells are clear. The paranasal sinuses are predominantly clear. Bilateral ocular lens replacements. The calvarium appears intact. CT CERVICAL SPINE: Diffuse demineralization of the osseous structures. Exaggerated cervical lordosis. The atlantooccipital and atlantoaxial joints appear normally aligned. The atlas and axis are intact. The remaining cervical vertebral bodies are normal in height. The cervical vertebral bodies are normal in alignment.There is no evidence of focal lytic or sclerotic lesion in the cervical spine. There is no prevertebral soft tissue swelling. Cervical spondylosis. No high grade spinal canal stenosis. Partially visualized right lung apex densities. CT/Spine Cervical without Contras IMPRESSION: 1. Trace punctate hyperdensities in the right frontal lobe questionable for art ifactual versus trace intraparenchymal hemorrhage. Attention to short-term follow-up. 2. No acute transcortical infarct. 3. No acute fracture or dislocation in the cervical spine. Reading Location: [id number]
--- OUTSIDE RECORDS SUMMARY | 2025-02-11 20:33 | XMS RPT_ITS | CCD ---
Author Organization [facility] Care Team Providers Care Bacteriology Research Assistant Name Role Phone REHMUS, VANESSA H Unavailable Unavailable [facility] Unavailable Unavailable NICK, YOVANA MICK Unavailable Unavailable REHMUS, VANESSA H Unavailable Unavailable [facility] Unavailable Unavailable NICK, YOVANA MICK Unavailable Unavailable REHMUS, VANESSA H Unavailable Unavailable [facility] Unavailable Unavailable NICK, YOVANA MICK Unavailable Unavailable REHMUS, VANESSA H Unavailable Unavailable REHMUS, VANESSA H Unavailable Unavailable NICK, YOVANA MICK Unavailable Unavailable Rehmus Vanessa COLLADOogland Unavailable Unava ilable Yovana Pierre MD Primary Care Provider Rachna Acosta DO Primary Care Provider [phone] ABHISHEK ANDREWS Attending Unavailable RACHNA ACOSTA Primary Care Unavailable RACHNA ACOSTA Primary Care Unavailable ABHISHEK ANDREWS Attending Unavailable Dr. Rachna Acosta Primary Care Provider [phone] Dr. Rachna Acosta Referring Provider Dr. Marcelo Berry Attending Provider [phone] Rachna Acosta Primary Care Provider [phone] Dr. Rachna Acosta Referring Provider Dr. Marcelo Berry Attending Provider [phone] Jarett DUMONT, TIM Vasquez Attending Provider Dr. Marcelo Berry Referring Provider [phone] Dr. Marcelo Berry Other Provider Dr. Alejandro Ruiz Attending Provider Dr. Magalie Fernandez Attending [facility] Rachna Madera Primary Care Provider Dr. Marcelo Berry Attending Provider Dr. Rachna Acosta Referring Provider Mahi COLLADO, Vanessa Chaidez Unavailable Unava ilable Malys DO, Rachna A Primary Care Provider Marcelo Berry MD Unavailable Malys DO, Rachna A Primary Care Provider MALYS, RACHNA A Primary Care Unavailable TAIGEN, BEAR DARIN Attending Unavailable TAIGEN, BEAR DARIN Admitting Unavailable TAIGEN, BEAR DARIN Referring Unavailable MALYS, RACHNA A Primary Care Unavailable MALYS, RACHNA A Primary Care Unavailable TAIGEN, BEAR DARIN Referring Unavailable MALYS, RACHNA A Primary Care Unavailable TAIGEN, BEAR DARIN Referring Unavailable MALYS, RACHNA A Primary Care Unavailable LAWRENCELUIS F ROJAS Attending Unavailable MALYS, RACHNA A Primary Care Unavailable TAIGEN, BEAR DARIN Referring Unavailable TAIGEN, BEAR DARIN Referring Unavailable MALYS, RACHNA A Primary Care Unavailable MALYS, RACHNA A Primary Care Unavailable TAIGEN, BEAR DARIN Referring Unavailable MALYS, RACHNA A Primary Care Unavailable TAIGEN, BEAR DARIN Referring Unavailable TISHA ARAUJO Attending Unavailable MALYS, RACHNA A Primary Care Unavailable TAIGEN, BEAR DARIN Referring Unavailable Malys , Dr. Briscoe Primary Care Provider Dave KIM, Dr. Briscoe Referring Provider Hazel Escalona Attending Provider Dr. Rachna Acosta DO Attending Provider Hazel Escalona Other Provider Hazel Escalona Referring Provider [phone] Dr. Marcelo Berry MD Attending Provider Faith Pacheco Attending Provider Dr. Omar Greene DO Emergency Provider Dr. Omar Greene DO Attending Provider [phone] Dave KIM, Dr. Briscoe Other Provider Peter MEDICAL MANAGER-C, Amanda Attending Provider Malys, Rachan A Primary Care Provider EMETERIO MALCOLM Attending Unavailable EMETERIO MALCOLM Referring Unavailable MALYS, RACHNA Primary Care Unavailable EMETERIO MALCOLM Attending Unavailable MALYS, RACHNA Primary Care Unavailable Malys DO, Dr. Briscoe Primary Care Provider Dave DO, Dr. Briscoe Attending Provider [phone] Malgabbi DO, Dr. Briscoe Referring Provider EMETERIO MALCOLM Attending Provider EMETERIO MALCOLM Referring Provider Roof MEDICAL MANAGER-C, Cinthia Huntley Attending Provider Roof MEDICAL MANAGER-C, Cinthia Huntley Referring Provider Dave DO, Dr. Briscoe Primary Care Provider Dave DO, Dr. Briscoe Attending Provider [phone] Dave DO, Dr. Briscoe Referring Provider Malgabbi DO, Dr. Briscoe Primary Care Provider [phone] Dave DO, Dr. Briscoe Referring Provider Dave DO, Dr. Briscoe Primary Care Physician EMETERIO MALCOLM Attending Physician Roof MEDICAL MANAGER-C, Cinthia Huntley Attending Physician [phone] Malys, Rachna Attending Unavailable Malys, Rachna Primary Care Unavailable Malys, Rachna Primary Care Unavailable Malys, Rachna Referring Unavailable Malys, Rachna Attending Unavailable Malys, Rachna Attending Unavailable Malys, Rachna Primary Care Unavailable Malys, Rachna Referring Unavailable Jarett DUMONT, Hazel Vasquez Consulting Unavail able Kristi, Marcelo Attending Unavailable Malys, Rachna Primary Care Unavailable Roof MEDICAL MANAGER, Cinthia Huntley Attending Unavailable Roof MEDICAL MANAGER, Cinthia Huntley Referring Unavailable Malys, Rachna Primary Care Unavailable Malys, Rachna Attending Unavailable Malys, Rachna Primary Care Unavailable Malys, Rachna Referring Unavailable Roof MEDICAL MANAGER, Cinthia H Referring Unavailable Malys, Rachna Primary Care Unavailable Roof MEDICAL MANAGER, Cinthia Huntley Attending Unavailable Malys, Rachna Attending Unavailable Malys, Rachna Referring Unavailable Malys, Rachna Primary Care Unavailable Malys, Rachna Primary Care Unavailable Jarett DUMONT, Hazel Vasquez Referring Unavail able Jarett DUMONT, Hazel Vasquez Attending Unavail able Amanda Green Attending Unavailable Malys, Rachna Primary Care Unavailable Malys, Rachna Consulting Unavailable Malys, Rachna Referring Unavailable Roof MEDICAL MANAGER, Cinthia Huntley Attending Unavailable Malys, Rachna Referring Unavailable Malys, Rachna Primary Care Unavailable Malys, Rachna Attending Unavailable Malys, Rachna Referring Unavailable Malys, Rachna Primary Care Unavailable Malys, Rachna Primary Care Unavailable Omar Greene Attending Unavailable Malys, Rachna Primary Care Unavailable Malys, Rachna Referring Unavailable Malys, Rachna Attending Unavailable Malys, Rachna Referring Unavailable Malys, Rachna Primary Care Unavailable Jarett DUMONT, Hazel Vasquez Attending Unavail able Roof MEDICAL MANAGER, Cinthia Huntley Attending Unavailable Malys, Rachna Primary Care Unavailable Malys, Rachna Referring Unavailable Malys, Rachna Referring Unavailable Malys, Rachna Primary Care Unavailable Faith Orta Attending Unavailable Malys, Rachna Primary Care Unavailable All Shay Referring Unavailable All Shay Attending Unavailable Roof MEDICAL MANAGER, Cinthia H Referring Unavailable Roof MEDICAL MANAGER, Cinthia Huntley Attending Unavailable Malys, Rachna Primary Care Unavailable Roof MEDICAL MANAGER, Cinthia H Referring Unavailable Roof MEDICAL MANAGER, Cinthia H Attending Unavailable Malys, Rachna Primary Care Unavailable Malys, Rachna Primary Care Unavailable Jarett DUMONT, Hazel Vasquez Referring Unavail able Jarett DUMONT, Hazel Vasquez Attending Unavail able Allergies Allergy Classification Reported Allergen(s) Allergy Type Date of Onset Reaction(s) Facility (1 source) Amoxicillin Drug Allergy 03-06-2024 [facility] Repository (1 source) Clavulanate Drug Allergy 03-06-2024 [facility] Repository Medications Current Medications Medication Drug Class(es) Dates Sig (Normalized) Sig (Original) Budesonide-Formotero l (7 sources) Corticosteroid, beta2-Adrenergic Agonist Start: 11-03-2024 Start: 11-03-2024 Budesonide-For moterol (Breyna) 160-4.5 mcg/actuation HFA aerosol inhaler Active 2 NMA INHALATION TWICE A DAY as needed November 03, 2024 9:10am Start: 08-18-2024 End: 11-03-2024 Budesonide-Formoterol (Breyn a) 160-4.5 mcg/actuation HFA aerosol inhaler Discontinued 2 NMA INHALATION TWICE A DAY August 18, 2024 12:00am November 03, 2024 9:11am take 2 puff(s) by in halation twice daily as needed budesonide-formoterol (Symbicort) 160-4.5 MCG/ACT inhaler Inhale 2 puffs 2 times daily as needed. Rinse mouth with water after use to reduce aftertaste and incidence of candidiasis. Do not swallow. Active empagliflozin 10 mg oral tablet (20 sources) Sodium-Glucose Cotransporter 2 Inhibitor Start: 05-17-2023 End: 06-08-2024 take 1 tablet by mouth once daily iv contrast (will be provided with radiology test) (1 source) Start: 05-24-2023 End: 05-25-2023 inject 1 dose intravenously once iv contrast (will be provided with radiology test) Indications: Atrial fibrillation, persistent (HCC) CT Pulm Vein - No IV access, insert saline lock prior to the sedation, infusion, injection for imaging exam. Discontinue saline lock post exam. If Pt. has a central line or IVAD, may access for administration according to line specific nursing protocol. Once exam is complete flush line and de-access according to line specific nursing protocol in the CT contrast administration guidelines link. 1 Each 0 05/24/2023 05/25/2023 Active Comment on above: CT Pulm Vein - No IV access, insert saline lock prior to the sedation, infusion, injection for imaging exam. Discontinue saline lock post exam. If Pt. has a central line or IVAD, may access for administration according to line specific nursing protocol. Once exam is complete flush line and de-access according to line specific nursing protocol in the CT contrast administration guidelines link. LORazepam 0.5 mg oral tablet (16 sources) Benzodiazepine Start: 11-02-2022 take 0.5 mg by mouth every twelve hours as needed LORazepam (ATIVAN) 0.5 mg Take 0.5 mg by mouth two times a day as needed (anxiety). 11/02/2022 Active Start: 11-02-2022 End: 08-18-2024 take 1 tablet by mouth once daily as needed for anxiety Lorazepam 0.5 mg tablet Discontinued 0.5 mg PO DAILY as needed for anxiety November 02, 2022 12:00am August 18, 2024 9:35am Start: 11-02-2022 take 1 mg by mouth once daily Lorazepam Active MG PO DAILY November 01, 2022 11:00pm metoprolol tartrate 50 mg oral tablet (20 sources) beta-Adrenergic Nba Start: 10-03-2023 take 1 tablet by mouth once daily metoprolol succinate ER (TOPROL XL) 50 mg 24 hr tablet Take 1 tablet by mouth once daily. 90 tablet 3 10/03/2023 Active Start: 11-02-2022 End: 11-02-2022 take 1 tablet by mouth once daily in the evening Metoprolol Tartrate 25 mg tablet Discontinued 25 mg PO .COMPLEX November 02, 2022 10:08am November 02, 2022 10:44am 25 mg orally take 2 tabs qam, 1 tab qpm; Start: 11-02-2022 End: 09-15-2024 take 1 tablet by mouth twice daily Start: 11-01-2022 End: 11-02-2022 take 1 tablet by mouth twice daily Metoprolol Tartrate 25 mg tablet Discontinued 25 mg PO TWICE A DAY November 01, 2022 12:00am November 02, 2022 10:10am Comment on above: Take 50 mg by mouth two times a day. triamcinolone acetonide 1 mg /ml topical cream (9 sources) Corticosteroid Start: 08-18-2024 Start: 08-18-2024 Triamcinolone Acetonide 0.1 % cream Active NMA TOPICAL THREE TIMES A DAY as needed August 18, 2024 12:00am Start: 07-15-2023 triamcinolone acetonide (KENALOG) 0.1 % cream Apply to affected area as needed. 07/15/2023 Active vancomycin 125 mg oral capsule (2 sources) Glycopeptide Antibacterial Start: 09-30-2023 take 1 capsule by mouth four times daily vancomycin (VANCOCIN) 125 mg capsule Take 125 mg by mouth four times daily. 09/30/2023 Active Completed/Discontinued Medications Medication Drug Class(es) Dates Sig (Normalized) Sig (Original) acetaminophen 325 mg / HYDROcodone bitartrate 5 mg oral tablet (9 sources) Opioid Agonist Start: 05-31-2024 End: 08-18-2024 Hydrocodone-Acetami nophen 5-325 mg tablet Discontinued 1 {tbl} PO EVERY 6 HOURS NEEDED as needed for Pain 12 3 0 May 31, 2024 August 18, 2024 9:35am Acute thoracic myofascial strain Strain of muscle and tendon of unspecified wall of thorax, initial encounter [id number] 200 actuat albuterol 0.09 mg/actuat metered dose inhaler (19 sources) beta2-Adrenergic Agonist Start: 03-20-2023 End: 04-09-2023 albuterol HFA (PROVENTIL HFA, VENTOLIN HFA) 90 mcg/actuation inhaler Start: 11-02-2022 End: 02-20-2023 Albuterol Sulfate 90 mcg/act uation HFA aerosol inhaler Discontinued INHALATION November 02, 2022 12:00am February 20, 2023 11:02am Start: 11-02-2022 End: 02-20-2023 Albuterol Sulfate Discontinu ed INHALATION November 01, 2022 11:00pm February 20, 2023 10:02am ALBUTEROL SULFAT E HFA IN Inhale. Active amiodarone hydrochloride 200 mg oral tablet (20 sources) Antiarrhythmic Start: 06-26-2023 End: 10-03-2023 take 1 tablet by mouth once daily amiodarone (PACERONE) 200 mg tablet Take 1 tablet by mouth once daily. 0 06/26/2023 10/03/2023 Discontinued Start: 03-16-2023 End: 06-26-2023 take 1 tablet by mouth twice daily amiodarone (PACERONE) 200 mg tablet Take 200 mg by mouth two times a day. 0 03/16/2023 06/26/2023 Discontinued (Adjust Sig - Block E-Cancel) Start: 11-27-2022 End: 03-06-2024 take 1 tablet by mouth every twenty-four hours Amiodarone 200 mg tablet Discontinued 200 mg PO Q24H 90 3 December 20, 2022 12:02pm March 06, 2024 9:37am Comment on above: Take 200 mg by mouth two times a day. apixaban 5 mg oral tablet (20 sources) Factor Xa Inhibitor Start: End: take 1 tablet by mouth twice daily Apixaban (Eliquis) 5 mg tablet Discontinued 5 mg PO TWICE A DAY 180 April 06, 2024 3:07pm April 06, 2024 5:05pm Comment on above: Take 5 mg by mouth t wo times a day. aspirin 81 mg delayed release oral tablet (14 sources) Platelet Aggregation Inhibitor, Nonsteroidal Anti-inflammatory Drug Start: 3 End: 3 Aspirin (Adult Low Dose Aspirin) 81 mg tablet,delayed release (DR/EC) Discontinued 81 mg PO DAILY November 02, 2022 12:00am November 22, 2022 1:15pm Budesonide-Formote rol (Breyna) 160-4.5 mcg/actuation HFA aerosol inhaler (6 sources) Start: End: Budesonide-Formoterol (Breyna) 160-4.5 mcg/actuation HFA aerosol inhaler Discontinued 2 NMA INHALATION TWICE A DAY August 18, 2024 12:00am November 03, 2024 9:11am Start: 08-18-2024 Budesonide-For moterol (Breyna) 160-4.5 mcg/actuation HFA aerosol inhaler Active 2 NMA INHALATION TWICE A DAY August 18, 2024 12:00am dapagliflozin 10 mg oral tablet (20 sources) Sodium-Glucose Cotransporter 2 Inhibitor Start: 10-09-2023 End: 03-06-2024 take 1 tablet by mouth once daily Dapagliflozin Propanediol 10 mg tablet Discontinued 10 mg PO DAILY October 09, 2023 12:00am March 06, 2024 9:37am Start: 03-01-2023 End: 05-17-2023 take 1 tablet by mouth once daily Dapagliflozin Propanediol (Farxiga) 10 mg tablet Discontinued 10 mg PO DAILY March 01, 2023 1:00am May 17, 2023 10:00am Comment on above: Take 10 mg by mouth daily with breakfast. digoxin 0.25 mg oral tablet (13 sources) Cardiac Glycoside Start: 11-23-19 End: 11-28-19 take 1 tablet by mouth once daily Digoxin (Digox) 250 mcg (0.25 mg) tablet Discontinued 250 ug PO DAILY 17 01November 22, 2022 12:00am November 27, 2022 9:39am doxycycline hyclate 100 mg oral capsule (4 sources) Tetracycline-class Drug Start: 09-02-19 End: 09-09-19 take 1 capsule by mouth twice daily Doxycycline Hyclate 100 mg capsule Discontinued 100 mg PO TWICE A DAY 14 7 0 September 01, 2024 12:00am September 07, 2024 12:00am September 08, 2024 12:06am fluticasone propionate 0.05 mg/actuat metered dose nasal spray (20 sources) Corticosteroid Start: 11-02-19 End: 09-10-19 Fluticasone Propionate (Flovent Hfa) 110 mcg/actuation HFA aerosol inhaler Discontinued 2 NMA INHALATION TWICE A DAY as needed for shortness of breath or wheezing November 02, 2022 10:07am September 10, 2023 8:27am Start: 11-01-2022 End: 09-10-2023 take 50 ug nasal route once daily as needed Fluticasone Propionate (Allergy Relief (Fluticasone)) 50 mcg/actuation spray,suspension Discontinued 2 NMA INTRANASAL DAILY as needed for nasal congestion November 02, 2022 10:07am September 10, 2023 8:27am administer into each nostril Start: 11-01-2022 End: 11-02-2022 take 1 spray(s) nasal route once daily Fluticasone Propionate (Allergy Relief (Fluticasone)) 50 mcg/actuation spray,suspension Active 2 SPRAY INTRANASAL DAILY November 02, 2022 9:07am administer into each nostril Fluticasone Propionate (Flov ent Hfa) 110 mcg/actuation HFA aerosol inhaler (20 sources) Start: 11-02-2022 End: 09-10-2023 Fluticasone Propionate (Flov ent Hfa) 110 mcg/actuation HFA aerosol inhaler Discontinued 2 NMA INHALATION TWICE A DAY as needed for shortness of breath or wheezing November 02, 2022 10:07am September 10, 2023 8:27am Start: 11-02-2022 take 1 puff(s) by in halation twice daily Fluticasone Propionate (Flovent Hfa) 110 mcg/actuation HFA aerosol inhaler Active 2 PUFF INHALATION TWICE A DAY November 02, 2022 9:07am Start: 11-02-2022 take 1 puff(s) by in halation twice daily Fluticasone Propionate (Flovent Hfa) 110 mcg/actuation HFA aerosol inhaler Active 2 PUFF INHALATION TWICE A DAY November 02, 2022 10:07am Start: 11-01-2022 End: 11-02-2022 Fluticasone Propionate (Flov ent Hfa) 110 mcg/actuation HFA aerosol inhaler Discontinued 2 NMA INHALATION TWICE A DAY November 01, 2022 12:00am November 02, 2022 10:10am Start: 11-01-2022 End: 11-02-2022 take 1 puff(s) by inhalation twice daily Fluticasone Propionate (Flovent Hfa) 110 mcg/actuation HFA aerosol inhaler Discontinued 2 PUFF INHALATION TWICE A DAY October 31, 2022 11:00pm November 02, 2022 9:10am Start: 11-01-2022 End: 11-02-2022 take 1 puff(s) by inhalation twice daily Fluticasone Propionate (Flovent Hfa) 110 mcg/actuation HFA aerosol inhaler Discontinued 2 PUFF INHALATION TWICE A DAY November 01, 2022 12:00am November 02, 2022 10:10am furosemide 40 mg oral tablet (20 sources) Loop Diuretic Start: 08-18-2024 End: 11-03-2024 Furosemide 40 mg tablet Discontinued 20 mg PO DAILY as needed for weight gain 45 90 3 August 18, 2024 10:28am November 03, 2024 9:58am Start: 09-10-2023 End: 03-06-2024 Furosemide 40 mg tablet Disc ontinued 20 mg PO DAILY September 10, 2023 8:27am March 06, 2024 9:55am Start: 06-26-2023 take 1 tablet by andrzej th once daily furosemide (LASIX) 20 mg tablet Take 1 tablet by mouth once daily. 06/26/2023 Active Start: 03-07-2023 End: 09-10-2023 take 1 tablet by mouth once daily Furosemide 40 mg tablet Discontinued 40 mg PO DAILY March 07, 2023 4:50pm September 10, 2023 8:28am Start: 11-02-2022 End: 06-26-2023 take 1 tablet by mouth twice daily Furosemide 40 mg tablet Discontinued 40 mg PO TWICE A DAY 180 3 November 02, 2022 12:00am March 07, 2023 4:50pm Start: 11-01-2022 End: 11-02-2022 take 20-40 mg by mouth once daily as needed Furosemide 20 mg tablet Discontinued 20 - 40 mg PO DAILY as needed November 01, 2022 12:00am November 02, 2022 10:42am Comment on above: Take 40 mg by mouth two times a day. handicap Placcard (13 sources) Start: 12-20-2022 handicap Placcard Active 0 .Route .MEDSUPPLY 1 December 20, 2022 12:00am Dx: Cardiomyopathy Expires: 12/2027 Start: 12-20-2022 handicap Placc chavez Active 0 .Route .MEDSUPPLY December 20, 2022 12:00am Dx: Cardiomyopathy Expires: 12/2027 Start: 12-20-2022 handicap Placc chavez Active 0 .Route .MEDSUPPLY December 19, 2022 11:00pm Dx: Cardiomyopathy Expires: 12/2027 iopamidol (Isovue-370) 76 % injection 75 mL (2 sources) Start: 07-22-2024 End: 07-22-2024 take 75 mL intravenously once as needed 75 mL, IntraVENous, IMG once PRN, contrast, Starting on Sat07/22/24 at 1235, For 1 dose naproxen 500 mg oral tablet (2 sources) Nonsteroidal Anti-inflammatory Drug Start: 06-12-2022 End: 04-09-2023 take 1 tablet by mouth twice daily naproxen (NAPROSYN) 500 mg tablet TAKE 1 TABLET BY MOUTH TWICE DAILY FOR 2 WEEKS 0 06/12/2022 04/09/2023 Discontinued (Discontinued by another Health Care Provider) Comment on above: TAKE 1 TABLET BY ANDRZEJ TWICE DAILY FOR 2 WEEKS predniSONE 20 mg oral tablet (14 sources) Start: 11-02-2022 End: 11-22-2022 Prednisone 20 mg tablet Discontinued mg PO November 02, 2022 12:00am November 22, 2022 1:15pm Start: 11-02-2022 End: 11-22-2022 Prednisone Discontinued MG P O November 01, 2022 11:00pm November 22, 2022 12:15pm sacubitril 24 mg / valsartan 26 mg oral tablet (20 sources) Angiotensin 2 Receptor Nba Start: 03-01-2023 End: 06-26-2023 take 1 tablet by mouth once daily ENTRESTO 24-26 mg tablet Take 1 tablet by mouth once daily. 0 03/01/2023 06/26/2023 Discontinued (Adjust Sig - Block E-Cancel) Start: 03-01-2023 End: 02-26-2024 Sacubitril-Valsartan (Entres to) 24-26 mg tablet Discontinued 1 {tbl} PO TWICE A DAY 180 3 February 26, 2024 1:55pm February 26, 2024 3:27pm Comment on above: Take 1 tablet by andrzej th once daily. traMADol hydrochloride 50 mg oral tablet (12 sources) Opioid Agonist Start: End: take 1 tablet by mouth every six hours as needed for pain Tramadol 50 mg tablet Discontinued 50 mg PO EVERY 6 HOURS as needed for pain 12 3 0 December 26, 2022 1:00am September 10, 2023 8:28am Problems Active Problems Problem Classification Problem Date Documented Da te Episodic/Chronic Anxiety disorders (20 sources) Generalized anxiety disorder; Translations: [Generalized anxiety disorder] Onset: 05-18-2015 04-09-2023 Chronic Cancer of breast (20 sources) Malignant tumor of breast ; Translations: [Malignant neoplasm of unspecified site of unspecified female breast] Onset: 04-09-2023 04-09-2023 Chronic Cardiac dysrhythmias (20 sources) Atrial flutter; Translations: [Unspecified atrial flutter] Onset: 06-05-2023 11-01-2022 Chronic Congestive heart failure; nonhypertensive (20 sources) Symptomatic congestive heart failure; Translations: [Heart failure, unspecified] Onset: 11-03-2024 11-02-2022 Chronic Disorders of lipid metabolism (20 sources) Hyperlipidemia; Translations: [Hyperlipidemia, unspecified] Onset: 12-11-2021 04-09-2023 Chronic Intestinal infection (11 sources) Clostridium difficile diarrhea; Translations: [Enterocolitis due to Clostridium difficile, not specified as recurrent] Onset: 08-14-2023 10-03-2023 Episodic Miscellaneous mental health disorders (9 sources) Anxiety about body function or health; Translations: [Other symptoms and signs involving emotional state] 05-31-2024 Episodic Osteoporosis (20 sources) Senile osteoporosis; Translations: [Age-related osteoporosis without current pathological fracture] Onset: 05-18-2015 04-09-2023 Chronic Other connective tissue disease (12 sources) Pain in right lower limb; Translations: [Pain in right leg] 01-03-2023 Episodic Other disorders of stomach and duodenum (11 sources) Disorder of stomach; Translations: [Other diseases of stomach and duodenum] 03-26-2024 Episodic Other ear and sense organ disorders [...] auditory perceptions, right ear] Onset: 06-19-2022 Episodic Other liver diseases (1 source) Other specified diseases of liver; Translations: [Other specified diseases of liver] Onset: 04-03-2024 Chronic Other liver diseases (1 source) Liver disease, unspecified; Translations: [Liver disease, unspecified] Onset: 03-30-2024 Chronic Other lower respiratory disease (20 sources) Dyspnea; Translations: [Shortness of breath] 02-27-2023 Episodic Other lower respiratory disease (12 sources) Wheezing; Translations: [Wheezing] Onset: 10-03-2023 02-27-2023 Episodic Other lower respiratory disease (2 sources) Shortness of breath; Translations: [Shortness of breath] Onset: 07-23-2024 Episodic Amber-; endo-; and myocarditis; cardiomyopathy (except that caused by tuberculosis or sexually transmitted disease) (20 sources) Cardiomyopathy; Translations: [Other cardiomyopathies] Onset: 04-09-2023 11-23-2022 Chronic Pleurisy; pneumothorax; pulmonary collapse (20 sources) Bilateral pleural effusion; Translations: [Pleural effusion, not elsewhere classified] Onset: 07-22-2024 11-01-2022 Episodic Spondylosis; intervertebral disc disorders; other back problems (1 source) Dorsalgia, unspecified; Translations: [Dorsalgia, unspecified] Onset: 12-28-2024 Episodic Sprains and strains (20 sources) Sprain of ankle; Translations: [Sprain of unspecified ligament of right ankle, initial encounter] 01-03-2023 Episodic Unclassified (1 source) Unknown / UNK(Unknown) Onset: 07-09-2017 Unclassified (1 source) Other persistent atrial fibrillation; Translations: [Atrial fibrillation, persistent (HCC)] Onset: 06-26-2023 Unclassified (2 sources) New Patient; Translations: [New Patient] Onset: 07-16-2024 Past or Other Problems Problem Classification Problem Date Documented Da te Episodic/Chronic Other aftercare (4 sources) Drug therapy finding; Translations: [Other pen[facility]entiary (current) drug therapy] Onset: 10-03-2023 06-26-2023 Episodic Other aftercare (1 source) Encounter for therapeutic drug level monitoring; Translations: [Encounter for therapeutic drug level monitoring] Onset: 03-12-2024 Episodic Other disorders of stomach and duodenum (1 source) Other diseases of stomach and duodenum; Translations: [Other diseases of stomach and duodenum] Onset: 03-12-2024 Episodic Other fractures (20 sources) Fracture of twelfth thoracic vertebra; Translations: [Wedge compression fracture of T11-T12 vertebra, subsequent encounter for fracture with routine healing] Onset: 04-09-2023 04-09-2023 Episodic Other lower respiratory disease (2 sources) Dyspnea, unspecified; Translations: [Dyspnea, unspecified] Onset: 06-29-2024 Episodic Unclassified (1 source) Malignant neoplasm of upper-inner quadrant of left female breast Onset: 07-09-2017 Results Test Name Value Interpretation Reference Range Facility L/S Spine Min 4 Viewson 0 L/S Spine Min 4 Views [facility] Imaging Services [address] [place], [place] [address] L/S Spine Min 4 Views MR#: [id number] Acct: [id number] Name: CRISELDA STORM Rep #: [id number] : 1945 F 79 From: Vince Snowden MD PCP: Dr. Rachna Acosta DO Status: REG CLI Study: L/S Spine Min 4 Views Date of Exam: 12/25/24 Exam# [id number] Ordering Dr: Rachna Acosta DO PROCEDURE: L/S SPINE MIN 4 VIEWS 12/25/2024 REASON FOR EXAM: BACK PAIN TECHNIQUE: Procedure Code: RADSPLS Modality: DX Procedure: L/S SPINE MIN 4 VIEWS FINDINGS: No evidence of acute fracture or dislocation. Moderate anterior wedging of T11 and T12. Mild superior endplate compression of L1. Mild superior and inferior endplate compression of L2. Normal alignment. Moderate degenerative changes of the visualized spine. RAD/L/S Spine Min 4 Views IMPRESSION: Spondylosis. Multilevel compression deformities of undetermined age. Reading Location: [facility] CC: Dr. Rachna Acosta DO Radio Operator Ground: Signed Normal [facility] Cardiology Visit Reporton Cardiology Visit Report [facility] [address] [place] [address] OFFICE VISIT Date of Service: 11/03/24 MR#: [id number] Acct: [id number] Name: CRISELDA STORM Rep #: [id number] : 1945 Provider: LEX minaya Age/Sex: 79/F [place] [facility] [place] Signed HPI HPI History of Present Illness Details: Criselda Storm is a 79-year-old lady with no previous cardiac history who presented with shortness of breath in 10/2022. It was initially thought that she had a respiratory tract infection and then was subsequently treated. A follow-up visit with her PCP noted that she was in heart failure and was in atrial flutter with a rapid ventricular response rate. She was started on metoprolol which was increased and then referred to cardiology for further evaluation and management. Blood work was done including a C-reactive protein which was elevated, and mildly elevated sed rate and a natruretic peptide which was over 600. EKG done demonstrated atrial flutter with a rate of 150 bpm. She also did have a CTA of her chest performed on October 25 which demonstrated moderate to large left and moderate right pleural effusion but no evidence of pulmonary embolism. Echocardiogram demonstrated normal LV size with severe global left ventricular systolic dysfunction with an estimated ejection fraction 20%. Pulmonary artery pressure 30 mmHg. Mild concentric LVH. Earlier this month prior to her cardioversion she was started on digoxin for uncontrolled atrial flutter. Patient did undergo a cardioversion on November 27, 2022. 1 week follow-up EKG demonstrated atrial fibrillation. Because she did not maintain sinus rhythm patient was started on amiodarone, Digoxin was discontinued with the plans of pursuing a diagnostic heart catheterization for further evaluation. She diagnostic heart cath demonstrated Non obstructive coronary arteries, Cardiomyopathy: Dilated. She did under go a DCCV on 02/21/2023. At her OV 5 days later, she was noted to be in Afib. She we did make some adjustments in her medications for her cardiomyopathy. Patient was referred to EP. She was evaluated at [facility] in 03/2023. It was recommended that they continue with rhythm control with amiodarone with a goal of proceeding with an ablation in the future. They had wanted a follow-up echo prior to proceeding. If her EF remained low then they had considered referral to heart failure clinic if her EF has normalized would then discuss with patient about ablation. She did have an echocardiogram done in March 2023 at [facility]. Ejection fraction was noted to be 58%. Left atrial cavity severely dilated, right atrial cavity is dilated. Patient did undergo an ablation on 07/03/23. She had thoracentesis on 06/03/2024 and 08/14/2024. She has been referred to cardiothoracic surgery team from primary care provider for long-term pleural effusion management. She opted for palliative thoracentesis route rather than more aggressive intervention. She denies chest, arm, jaw, or neck discomfort. She denies palpitations. She denies bilateral lower extremity edema. She denies claudication. Prior to thoracentesis she noted right back pain. She denies shortness of breath with activity, shortness of breath at rest, orthopnea, or PND. She denies chronic cough. She denies significant, sudden weight gain. She denies lightheadedness, dizziness, near-syncope, or syncope. She denies blood in urine, blood in stool, or epistaxis. He denies fever with chills. She denies myalgia. She denies fatigue. Her exercise level has remained stable. 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 Accompanied by: Daughter Is patient in pain?: No Allergies No Known Allergies Allergy (Verified 11/03/24 09:10) Medications ???Medication ???Instructions ???Recorded ???Confirmed ???Type handicap Placcard #1 ea 12/20/22 03/07/23 Rx sacubitril 24 mg-valsartan 26 mg 1 tab PO BID #180 tabs 02/26/24 Rx tablet (Entresto) apixaban 5 mg tablet (Eliquis) 5 mg PO BID #180 tabs 04/06/24 Rx empagliflozin 10 mg tablet 10 mg PO DAILY #30 tabs 06/08/24 0 11/03/24 Rx (Jardiance) triamcinolone acetonide 0.1 % applic topical TID PRN 08/18/24 History topical cream metoprolol tartrate 50 mg tablet 50 mg PO BID #180 tabs 09/15/24 Rx budesonide-formoterol HFA 160 2 puff inhalation BID PRN 11/03/24 11/03/24 History mcg-4.5 mcg/actuation aerosol inhaler (Breyna) furosemide 40 mg tablet 20 mg PO DAILY weigh (more content not included)... Normal [facility] Chest PA and Lateralon 11-03 Chest PA and Lateral [facility] Imaging Services [address] [place], [place] [id number] Chest PA and Lateral MR#: [id number] Acct: [id number] Name: CRISELDA STORM Rep #: [id number] : 1945 F 79 From: Luis Woodward MD PCP: Dr. Rachna Acosta DO Status: REG CLI Study: Chest PA and Lateral Date of Exam: 11/03/24 Exam# [id number] Ordering Dr: Cinthia Kim MEDICAL MANAGER MEDICAL MANAGER-C PROCEDURE: CHEST PA AND LATERAL 11/03/2024 REASON FOR EXAM: SOB TECHNIQUE: Procedure Code: RADCXR Modality: DX Procedure: CHEST PA AND LATERAL COMPARISON: August 18, 2024 FINDINGS: Hardware: None Heart: Enlarged Mediastinum: Aorta is atherosclerotic. Lungs: Consolidation in the lingula and left lower lobe along with some pleural fluid. No change. Bones: There is exaggeration of the thoracic kyphosis related to anterior wedge compression fractures in the midthoracic spine. Additionally some biconcave compression fractures are seen in the lower thoracic spine. RAD/Chest PA and Lateral IMPRESSION: No significant change in the appearance of the left lung consolidation and pleural fluid. No pneumothorax. Reading Location: [id number] CC: MEDICAL MANAGER-C Cinthia Kim; Dr. Rachna Acosta DO Radio Operator Ground: Signed Normal [facility] Absolute lymphocyte countOrd ered By: Cinthia Kim on 10-01-2024 Lymphocytes Auto (Unsp spec) [#/Vol] 0.68 10*3/uL Low 0.83-4.51 [facility] Absolute neutrophil countOrd ered By: Cinthia Kmi on 10-01-2024 Neutrophils (Bld) [#/Vol] 4.4 10*3/uL 2.0-7.7 [facility] Anion gap in Serum or Plasma Ordered By: Cinthia Kim on 10-01-2024 Anion gap [Moles/Vol] 15 mmol/L 5-15 [facility] Automated lymphocyte count a s percentage of total leukocytesOrdered By: Cinthia Kim on 10-01-2024 Lymphocytes/100 WBC Auto (Unsp spec) 11.5 % Low 19-41 [facility] BUN/creatinine ratioOrdered By: Cinthia Julio on 10-01-2024 Urea nitrogen/Creatinine [Mass ratio] 23.2 mg/mg High 10-20 [facility] Basic Metabolic Profile (BMP )on 10-01-2024 BUN/CRE 23.2 RATIO High 10-20 [facility] Comment on above: Performed By: #### L 503.7505, L100.0100, L500.2500 #### [facility] [address] [place], [address] Calcium [Mass/Vol] 9.7 mg/dL Normal 7.6-11.0 [facility] Comment on above: Performed By: #### L 503.7505, L100.0100, L500.2500 #### [facility] [address] [place], [address] Chloride [Moles/Vol] 94 mmol/L Low 98-108 [facility] Comment on above: Performed By: #### L 503.7505, L100.0100, L500.2500 #### [facility] [address] [place], [address] CO2 [Moles/Vol] 25.5 mmol/L Normal 21.0-32.0 [facility] Comment on above: Performed By: #### L 503.7505, L100.0100, L500.2500 #### [facility] [address] [place], [address] Creatinine [Mass/Vol] 0.83 mg/dL Normal 0.70-1.20 [facility] Comment on above: Performed By: #### L 503.7505, L100.0100, L500.2500 #### [facility] [address] [place], [address] GAP 15 Normal 5-15 [facility] Comment on above: Performed By: #### L 503.7505, L100.0100, L500.2500 #### [facility] [address] [place], [address] GFR/1.73 sq M.predicted among non-blacks MDRD (S/P/Bld) [Vol rate/Area] 72 mL/min/{1.73_m2} Normal >60 [facility] Comment on above: Result Comment: mL/m in/1.73m2 CKD-EPI Creatinine Equation (2020) Performed By: #### L 503.7505, L100.0100, L500.2500 #### [facility] [address] [place], [address] Glucose [Mass/Vol] 90 mg/dL Normal 70-99 [facility] Comment on above: Performed By: #### L 503.7505, L100.0100, L500.2500 #### [facility] [address] [place], [address] Potassium [Moles/Vol] 4.4 mmol/L Normal 3.3-5.1 [facility] Comment on above: Performed By: #### L 503.7505, L100.0100, L500.2500 #### [facility] [address] [place], [address] Sodium [Moles/Vol] 134 mmol/L Normal 133-145 [facility] Comment on above: Performed By: #### L 503.7505, L100.0100, L500.2500 #### [facility] [address] [place], [address] Urea nitrogen [Mass/Vol] 19 mg/dL Normal 4-19 [facility] Comment on above: Performed By: #### L 503.7505, L100.0100, L500.2500 #### [facility] [address] [place], [address] Basophil percentageOrdered B y: Cinthia Kim on 10-01-2024 Basophils/100 WBC (Bld) 1.2 % High 0-1 [facility] CBC W/Diff, Automatedon 09-18 Absolute Lymph 0.68 X10 3/uL Low 0.83-4.51 [facility] Comment on above: Performed By: #### L 503.7505, L100.0100, L500.2500 #### [facility] [address] [place], [address] Absolute Neut 4.4 X10 3/uL Normal 2.0-7.7 [facility] Comment on above: Performed By: #### L 503.7505, L100.0100, L500.2500 #### [facility] [address] [place], [address] Basophils/100 WBC (Bld) 1.2 % High 0-1 [facility] Comment on above: Performed By: #### L 503.7505, L100.0100, L500.2500 #### [facility] [address] [place], [address] Eosinophils/100 WBC (Bld) 2.2 % Normal 0-5 [facility] Comment on above: Performed By: #### L 503.7505, L100.0100, L500.2500 #### [facility] [address] [place], [address] Erythrocyte distribution width (RBC) [Ratio] 14.2 % Normal 11.6-14.6 [facility] Comment on above: Performed By: #### L 503.7505, L100.0100, L500.2500 #### [facility] [address] [place], [address] Hematocrit (Bld) [Volume fraction] 36.5 % Low 37-47 [facility] Comment on above: Performed By: #### L 503.7505, L100.0100, L500.2500 #### [facility] [address] [place], [address] Hemoglobin (Bld) [Mass/Vol] 11.9 g/dL Low 12.0-15.0 [facility] Comment on above: Performed By: #### L 503.7505, L100.0100, L500.2500 #### [facility] [address] [place], [address] IG% 0.500 Normal 0.0-0.9 [facility] Comment on above: Result Comment: IG% - Immature Granulocytes (promyelocytes, myelocytes and metamyelocytes) > 1% indicates that a LEFT SHIFT is Present. Performed By: #### L 503.7505, L100.0100, L500.2500 #### [facility] [address] [place], [address] Lymphocytes/100 WBC (Bld) 11.5 % Low 19-41 [facility] Comment on above: Performed By: #### L 503.7505, L100.0100, L500.2500 #### [facility] [address] [place], [address] MCH (RBC) [Entitic mass] 30.6 pg Normal 27.0-32.0 [facility] Comment on above: Performed By: #### L 503.7505, L100.0100, L500.2500 #### [facility] [address] [place], [address] MCHC (RBC) [Mass/Vol] 32.6 g/dL Normal 32-36 [facility] Comment on above: Performed By: #### L 503.7505, L100.0100, L500.2500 #### [facility] [address] [place], [address] MCV (RBC) [Entitic vol] 93.8 fL Normal 81-99 [facility] Comment on above: Performed By: #### L 503.7505, L100.0100, L500.2500 #### [facility] [address] [place], [address] Monocytes/100 WBC (Bld) 10.7 % High 0-10 [facility] Comment on above: Performed By: #### L 503.7505, L100.0100, L500.2500 #### [facility] [address] [place], [address] Neutrophils/100 WBC (Bld) 73.9 % High 47-70 [facility] Comment on above: Performed By: #### L 503.7505, L100.0100, L500.2500 #### [facility] [address] [place], [address] Nucleated RBC (Bld) [#/Vol] 0 10*3/uL Normal 0-5 [facility] Comment on above: Performed By: #### L 503.7505, L100.0100, L500.2500 #### [facility] [address] [place], [address] Platelet mean volume (Bld) [Entitic vol] 9.9 fL Normal 6.2-12.0 [facility] Comment on above: Performed By: #### L 503.7505, L100.0100, L500.2500 #### [facility] [address] [place], [address] Platelets (Bld) [#/Vol] 551 10*3/uL High 150-450 [facility] Comment on above: Performed By: #### L 503.7505, L100.0100, L500.2500 #### [facility] [address] [place], [address] RBC (Bld) [#/Vol] 3.89 10*6/uL Low 4.2-5.4 [facility] Comment on above: Performed By: #### L 503.7505, L100.0100, L500.2500 #### [facility] [address] [place], [address] RDW SD 49.1 fl High 35.1-43.9 [facility] Comment on above: Performed By: #### L 503.7505, L100.0100, L500.2500 #### [facility] [address], [address] WBC (Bld) [#/Vol] 5.9 10*3/uL Normal 4.4-11.0 [facility] Comment on above: Performed By: #### L 503.7505, L100.0100, L500.2500 #### [facility] [address] [place], [address] Carbon dioxide, total [Moles /volume] in Central venous bloodOrdered By: Cinthia Kim on 10-01-2024 CO2 [Moles/Vol] 25.5 mmol/L 21.0-32.0 [facility] Chest PA and Lateralon 10-01 Chest PA and Lateral [facility] Imaging Services [address] [place] [address] Chest PA and Lateral MR#: [id number] Acct: [id number] Name: CRISELDA STORM Rep #: [id number] : 1945 F 79 From: Dorian Silva MD PCP: Dr. Rachna Acosta, DO Status: REG CLI Study: Chest PA and Lateral Date of Exam: 10/01/24 Exam# [id number] Ordering Dr: Cinthia Kim MEDICAL MANAGER MEDICAL MANAGER-C PROCEDURE: CHEST PA AND LATERAL 10/01/2024 REASON FOR EXAM: SHORTNESS OF BREATH, HX BILAT. PLEURAL EFFUSIONS TECHNIQUE: CHEST PA AND LATERAL COMPARISON: Chest x-ray 09/01/2024. FINDINGS: Heart: Heart size is mildly enlarged. Tortuous thoracic aorta. Mediastinum: The mediastinal contour is stable. Lungs: Redemonstration of right lower lobe airspace disease. Left small pleural effusion. Previously seen left apical pneumothorax is not appreciated in current study. Bones: Degenerative changes are identified within the thoracic spine. Other: Multiple clips within right lower lung as well as anterior mediastinum. RAD/Chest PA and Lateral IMPRESSION: Redemonstration of right lower lung airspace disease, unchanged since prior study. Small left pleural effusion. Reading Location: [id number] CC: LEX Kim; Dr. Rachna Acosta DO Radio Operator Ground: Signed Normal [facility] Chloride assayOrdered By: Hailey Kim on 10-01-2024 Chloride [Moles/Vol] 94 mmol/L Low 98-108 [facility] Eosinophil percentageOrdered By: Cinthia Kim on 10-01-2024 Eosinophils/100 WBC (Bld) 2.2 % 0-5 [facility] Erythrocyte distribution wid th ratioOrdered By: Cinthia Kim on 10-01-2024 Erythrocyte distribution width (RBC) [Ratio] 14.2 % 11.6-14.6 [facility] Erythrocyte distribution wid th standard deviationOrdered By: Cinthia Kim on 10-01-2024 Erythrocyte distribution width (RBC) [Ratio] 49.1 fl High 35.1-43.9 [facility] Fecal Fat, Qualitativeon FATS, NEUTRAL Normal [facility] Comment on above: Result Comment: OLD STOOL ORDERED. PATIENT NO LONGER NEEDS TO DO THEM Performed By: #### L 7000.0300 #### [facility] [address] [place], [place], [address] FATS, TOTAL Normal [facility] Comment on above: Result Comment: OLD STOOL ORDERED. PATIENT NO LONGER NEEDS TO DO THEM Performed By: #### L 7000.0300 #### [facility] [address] [place], [place], [address] Glomerular filtration rate ( GFR) estimation/1.73 sq m using serum, plasma, or whole bOrdered By: Cinthia Kim on 10-01-2024 GFR/1.73 sq M.predicted among non-blacks MDRD (S/P/Bld) [Vol rate/Area] 72 mL/min/{1.73_m2} >60 [facility] Comment on above: mL/min/1.73m2 CKD-EP I Creatinine Equation (2020) Hematocrit Auto (Bld) [Volum e fraction]Ordered By: Cinthia Kim on 10-01-2024 Hematocrit (Bld) [Volume fraction] 36.5 % Low 37-47 [facility] Hemoglobin measurementOrdere d By: Cinthia Kim on 10-01-2024 Hemoglobin (Bld) [Mass/Vol] 11.9 g/dL Low 12.0-15.0 [facility] Immature granulocytes/100 WB C Auto (Bld)Ordered By: Cinthia Kim on 10-01-2024 Immature granulocytes/100 WBC (Bld) 0.500 % 0.0-0.9 [facility] Comment on above: IG% - Immature Granu locytes (promyelocytes, myelocytes and metamyelocytes) > 1% indicates that a LEFT SHIFT is Present. MCV (mean corpuscular volume ) determinationOrdered By: Cinthia Kim on 10-01-2024 MCV (RBC) [Entitic vol] 93.8 fL 81-99 [facility] Mean corpuscular hemoglobin (MCH) determinationOrdered By: Cinthia Kim on 10-01-2024 MCH (RBC) [Entitic mass] 30.6 pg 27.0-32.0 [facility] Mean corpuscular hemoglobin concentration (MCHC) determinationOrdered By: Cinthia Kim on 10-01-2024 MCHC (RBC) [Mass/Vol] 32.6 g/dL 32-36 [facility] Mean platelet volume determi nationOrdered By: Cinthia Kim on 10-01-2024 Platelet mean volume (Bld) [Entitic vol] 9.9 fL 6.2-12.0 [facility] Monocyte percentageOrdered B y: Cinthia Kim on 10-01-2024 Monocytes/100 WBC (Bld) 10.7 % High 0-10 [facility] Natriuretic peptide.B prohor ho N-Terminal [Mass/volume] in Serum or PlasmaOrdered By: Cinthia Kim on 10-01-2024 Natriuretic peptide.B prohormone N-Terminal [Mass/Vol] 1877 pg/mL High <1800 [facility] Comment on above: Heart Failure Unlike ly: < 300 pg/mLHeart Failure Likely< 50 Years: > 450 pg/mL50-75 Years: > 900 pg/mL>75 Years: > 1800 pg/mL Neutrophil percentageOrdered By: Cinthia Kim on 10-01-2024 Neutrophils/100 WBC (Bld) 73.9 % High 47-70 [facility] Nucleated red blood cell per centageOrdered By: Cinthia Kim on 10-01-2024 Nucleated RBC/100 WBC (Bld) [Ratio] 0 % 0-5 [facility] Platelet countOrdered By: Hailey Kim on 10-01-2024 Platelets (Bld) [#/Vol] 551 10*3/uL High 150-450 [facility] Potassium measurement (mass/ volume)Ordered By: Cinthia Kim on 10-01-2024 Potassium (Unsp spec) [Mass/Vol] 4.4 mmol/L 3.3-5.1 [facility] Pro- Brain NATRIURETIC PEPTI Quintin 10-01-2024 Natriuretic peptide B (Bld) [Mass/Vol] 1877 pg/mL High <=1800 [facility] Comment on above: Result Comment: Hear t Failure Unlikely: < 300 pg/mL Heart Failure Likely < 50 Years: > 450 pg/mL 50-75 Years: > 900 pg/mL >75 Years: > 1800 pg/mL Performed By: #### L 503.7505, L100.0100, L500.2500 #### [facility] [address] [place], [address] RBC Auto (Bld) [#/Vol]Ordere d By: Cinthia Kim on 10-01-2024 RBC (Bld) [#/Vol] 3.89 10*6/uL Low 4.2-5.4 [facility] Serum creatinine measurement (mass/volume)Ordered By: Cinthia Kim on 10-01-2024 Creatinine [Mass/Vol] 0.83 mg/dL 0.70-1.20 [facility] Serum glucose measurement (m ass/volume)Ordered By: Cinthia Kim on 10-01-2024 Glucose [Mass/Vol] 90 mg/dL 70-99 [facility] Serum or plasma calcium ollie urement (mass/volume)Ordered By: Cinthia Kim on 10-01-2024 Calcium [Mass/Vol] 9.7 mg/dL 7.6-11.0 [facility] Serum or plasma urea nitroge n measurement (mass/volume)Ordered By: Cinthia Kim on 10-01-2024 Urea nitrogen [Mass/Vol] 19 mg/dL 4-19 [facility] Sodium levelOrdered By: Cinthia Kim on 10-01-2024 Sodium [Moles/Vol] 134 mmol/L 133-145 [facility] White blood cell (WBC) count Ordered By: Cinthia Kim on 10-01-2024 WBC (Bld) [#/Vol] 5.9 10*3/uL 4.4-11.0 [facility] Chest PA and Lateralon 09-01 Chest PA and Lateral [facility] Imaging Services [address] [place], [place] [address] Chest PA and Lateral MR#: [id number] Acct: [id number] Name: CRISELDA STORM Rep #: [id number] : 1945 F 79 From: José Miguel Noland MD PCP: Dr. Rachna Acosta DO Status: REG CLI Study: Chest PA and Lateral Date of Exam: 09/01/24 Exam# [id number] Ordering Dr: Cinthia Kim MEDICAL MANAGER MEDICAL MANAGER-C EXAM: XR Chest, 2 Views CLINICAL INDICATION: PLEURAL EFUSSION EVALUATION TECHNIQUE: Frontal and lateral views of the chest. COMPARISON: XR Chest dated 08/18/2024 FINDINGS: LUNGS AND PLEURAL SPACES: Bibasilar atelectasis or pneumonia. Left pleural effusion. No pneumothorax. HEART: Unremarkable. No cardiomegaly. MEDIASTINUM: Unremarkable. Normal mediastinal contour. BONES/JOINTS: Unremarkable. No acute fracture. RAD/Chest PA and Lateral IMPRESSION: 1. Bibasilar atelectasis or pneumonia. 2. Left pleural effusion. Reading Location[facility] CC: MEDICAL MANAGER-C Cinthia Kim; Dr. Rachna Acosta DO Radio Operator Ground: Signed Normal [facility] Cardiology Visit Reporton Cardiology Visit Report [facility] [address] [place] [address] OFFICE VISIT Date of Service: 08/18/24 MR#: [id number] Acct: [id number] Name: CRISELDA STORM Rep #: [id number] : 1945 Provider: LEX minaya Age/Sex: 79/F Location: [facility] [place] Status: Signed HPI HPI History of Present Illness Details: Criselda Storm is a 79-year-old lady with no previous cardiac history who presented with shortness of breath in 10/2022. It was initially thought that she had a respiratory tract infection and then was subsequently treated. A follow-up visit with her PCP noted that she was in heart failure and was in atrial flutter with a rapid ventricular response rate. She was started on metoprolol which was increased and then referred to cardiology for further evaluation and management. Blood work was done including a C-reactive protein which was elevated, and mildly elevated sed rate and a natruretic peptide which was over 600. EKG done demonstrated atrial flutter with a rate of 150 bpm. She also did have a CTA of her chest performed on October 25 which demonstrated moderate to large left and moderate right pleural effusion but no evidence of pulmonary embolism. Echocardiogram demonstrated normal LV size with severe global left ventricular systolic dysfunction with an estimated ejection fraction 20%. Pulmonary artery pressure 30 mmHg. Mild concentric LVH. Earlier this month prior to her cardioversion she was started on digoxin for uncontrolled atrial flutter. Patient did undergo a cardioversion on November 27, 2022. 1 week follow-up EKG demonstrated atrial fibrillation. Because she did not maintain sinus rhythm patient was started on amiodarone, Digoxin was discontinued with the plans of pursuing a diagnostic heart catheterization for further evaluation. She diagnostic heart cath demonstrated Non obstructive coronary arteries, Cardiomyopathy: Dilated. She did under go a DCCV on 02/21/2023. At her OV 5 days later, she was noted to be in Afib. She we did make some adjustments in her medications for her cardiomyopathy. Patient was referred to EP. She was evaluated at [facility] in 03/2023. It was recommended that they continue with rhythm control with amiodarone with a goal of proceeding with an ablation in the future. They had wanted a follow-up echo prior to proceeding. If her EF remained low then they had considered referral to heart failure clinic if her EF has normalized would then discuss with patient about ablation. She did have an echocardiogram done in March 2023 at [facility]. Ejection fraction was noted to be 58%. Left atrial cavity severely dilated, right atrial cavity is dilated. Patient did undergo an ablation on 07/03/23. She had thoracentesis on 06/03/2024 and 08/14/2024. She has been referred to cardiothoracic surgery team from primary care provider for long-term pleural effusion management. Initially she opted for palliative thoracentesis route rather than more aggressive intervention. She denies chest, arm, jaw, or neck discomfort. She denies palpitations. She denies bilateral lower extremity edema. She denies claudication. Prior to thoracentesis she noted right back pain. She denies shortness of breath with activity, shortness of breath at rest, orthopnea, or PND. She denies chronic cough. She denies significant, sudden weight gain. She denies lightheadedness, dizziness, near-syncope, or syncope. She denies blood in urine, blood in stool, or epistaxis. He denies fever with chills. She denies myalgia. She denies fatigue. Her exercise level has remained stable. 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 Is patient in pain?: No Allergies No Known Allergies Allergy (Verified 08/18/24 09:34) Medications ???Medication ???Instructions ???Recorded ???Confirmed ???Type metoprolol tartrate 50 mg tablet 50 mg PO BID #180 tabs 11/02/22 Rx handicap Placcard #1 ea 12/20/22 03/07/23 Rx sacubitril 24 mg-valsartan 26 mg 1 tab PO BID #180 tabs 02/26/24 Rx tablet (Entresto) apixaban 5 mg tablet (Eliquis) 5 mg PO BID #180 tabs 04/06/2403/14 Rx empagliflozin 10 mg tablet 10 mg PO DAILY #30 tabs 06/08/24 0 08/18/24 Rx (Jardiance) budesonide-formoterol HFA 160 2 puff inhalation BID 08/18/2403/14 History mcg-4.5 mcg/actuation aerosol inhaler (Breyna) furosemide 40 mg tablet 20 mg (1/2 x 40 mg) PO DAILY PRN 0 08/18/24 08/18/24 Rx weight gain 90 days #45 tabs triamcinolone acetonide 0.1 % applic topical TID PRN 08/18/24 (more content not included)... Normal [facility] Chest PA and Lateralon 08-18 Chest PA and Lateral [facility] Imaging Services [address] [place] [address] Chest PA and Lateral MR#: [id number] Acct: [id number] Name: EMETERIOCRISELDA Christina Rep #: [id number] : 1945 F 79 From: Abhay Lala MD PCP: Dr. Rachna Acosta, Status: REG CLI Study: Chest PA and Lateral Date of Exam: 08/18/24 Exam# [id number] Ordering Dr: Cinthia Kim MEDICAL MANAGER MEDICAL MANAGER-C PROCEDURE: CHEST PA AND LATERAL 08/18/2024 REASON FOR EXAM: POST THORACENTISIS X-RAY BASELINE TECHNIQUE: CHEST PA AND LATERAL COMPARISON: 06/24/2024 FINDINGS: Status post left-sided thoracentesis, there is a persistent moderate left effusion with introduction of air component. Small decrease in the fluid component. In addition to loculated air, there is a left apical pneumothorax, extending 13 mm from the inner chest wall. Underlying atelectasis/consolida tion. There is faint airspace disease at the right lung base. There is background emphysema and smoking-related interstitial lung disease. Normal heart size. Thoracic spine scoliosis. RAD/Chest PA and Lateral IMPRESSION: Status post left-sided thoracentesis, small improvement in now moderate, partially loculated effusion, with loculated air component and also apical pneumothorax component. Persistent right base faint airspace disease. Reading Location: [place] [address] CC: LEX Kim; Dr. Rachna Acosta DO Radio Operator Ground: Signed [facility] Thoracentesis W USon 025 Thoracentesis W US [facility] Imaging Services [address] [place] [address] Thoracentesis W US MR#: [id number] Acct: [id number] Name: CRISELDA STORM Rep #: [id number] : 1945 F 79 From: Juve Haque PCP: Dr. Rachna Acosta DO Status: REG CLI Study: Thoracentesis W US Date of Exam: 08/14/24 Exam# [id number] Ordering Dr: EMETERIO MALCOLM PROCEDURE: THORACENTESIS W US 08/14/2024 REASON FOR EXAM: RECURRENT PLEURAL EFFUSION TECHNIQUE: THORACENTESIS W US, left COMPARISON: Prior thoracentesis of 06/03/2024. FINDINGS: Following informed consent, and using standard sterile technique, an ultrasound-guided left thoracentesis was performed via a posterior approach. 2% lidocaine local anesthesia was followed by placement of a 5 Nepalese catheter into the fluid collection. Approximately 650 mL slightly blood-tinged fluid was successfully removed. No complication was encountered, the patient left the department good condition without significant complaint. US/Thoracentesis W US IMPRESSION: Successful left sided ultrasound-guided therapeutic thoracentesis. Reading Location: [place] [address] CC: Dr. Rachna Acosta DO; EMETERIO MALCOLM Radio Operator Ground: Signed [facility] 08-05-2024 36 Pt daughter called requesting thoracentesis order faxed to [place]. Order faxed. Pt daughter states she is scheduling at [place] and will follow up with pt PCP unless her mom decides on a different route. [facility] 08-03-2024 36 Spoke to daughter wh o states they would prefer to call central scheduling due to her work schedule. Number given. [facility] 07-30-[address] Malcolm reviewed results with Coco, patient's daughter, per patient's request. Per Dr. Malcolm, plan is to schedule a thoracentesis for patient and she will call our office prn. [facility] 36on 07-29-2024 36 Name of caller: Coco Contact phone number: [phone] Relationship to Patient: Daughter Provider: Dr. Malcolm Practice: Cardiothoracic Chief Complaint/Reason for Call: Patient daughter requesting a callback to discuss imaging results of chest CT. Please advise. Best time of day caller can be reached: Any Patient advised that office/PCP has 24-48 business hours to return their call: Yes' [facility] CT CHEST W IV CONTRASTon CT CHEST W IV CONTRAST Patient Name: [facility]ISELDA STORM [facility] 1945 [id number] Exam Date/Time: 07/22/2024 12:34 Procedure: CT CHEST W IV CONTRAST Ordering Provider: MALCOLM RICHARD Reason For Exam: Pleural effusion, malignancy suspected CLINICAL HISTORY: Pleural effusion, malignancy suspected COMPARISON: No relevant prior studies are available for comparison. TECHNIQUE: Helical CT images were acquired through the chest after the intravenous administration of 75 cc [address] scans at this facility employ automatic and/or manual dose reduction techniques to keep radiation dose as low as reasonably achievable. FINDINGS: Lungs: Complete collapse of the left lower lobe basal segments. Near complete collapse of the lingula. Subsegmental collapse of the left upper lobe. Rounded peripheral opacity in the lateral segment right middle lobe with axial dimensions of approximately 2.4 x 1.3 cm exclusive of surrounding comet tail. Biapical pulmonary scarring with architectural distortion and volume loss. Few scattered punctate calcified granulomas. Pleura: Large left pleural effusion estimated at 50% of pleural cavity volume, partially loculated along the anterior costal pleura and major fissure. Mild, smooth thickening of the posterior costal parietal pleura without discrete nodule. Trace right pleural effusion. Cardiovascular: Small pericardial effusion with a thickness of 1.4 cm overlying the right atrium with smooth thickening of the visceral and parietal pericardium. Normal caliber great vessels. Coronary calcifications. Miscellaneous: Unremarkable lower thyroid gland. Nondistended esophagus. No adenopathy. Bilateral breast clips. Upper abdomen: Unremarkable. Musculoskeletal: Abnormal soft tissue density contiguous with the right middle lobe abnormality involving the right chest wall superficial and deep to the fourth, fifth, and sixth ribs. Plant Technician/Control Room Operator thickness of 2.3 cm in the fourth intercostal space. Clips in the third intercostal space anteriorly. Permeative changes of those ribs along with healing fractures of the fourth through ninth ribs anterolaterally and multiple lateral left ribs. Background osteoporosis. Old compression fractures of T1 and T3-L1, incompletely healed at T4. IMPRESSION: Right chest wall soft tissue density contiguous with a right middle lobe opacity. Differential considerations are radiation therapy changes versus malignancy, particularly recurrent breast cancer. Correlation with the patient's history and prior imaging is requested. Large left pleural effusion. Smooth thickening of the parietal pleura suggesting a chronic nature. No discrete nodularity. Overall indeterminate for malignancy. Osteoporosis with extensive old thoracolumbar compression fractures and bilateral rib fractures. Report Dictated on Electronically Signed By: Haydee Méndez MD Electronically Signed Date/Time: 07/23/2024 4:39 PM EDT F/U PLEURAL EFFUSION Normal [facility] Office Visiton 07-16-2024 Follow-up visit [id number] Criselda Storm 1945 F Date Provider Department Center 07/16/2024 [id number]-VSROUNEMETERIO [facility] None No family history on file Level of Service:94915 GA OFFICE/OP CONSLTJ NEW/EST PT MOD MDM 40 MINUTES Reason for Visit and Comments: New Patient [542] Normal [facility] Progress Noteon 07-16-2024 Progress Note [facility] CARDIOVASCULAR & THORACIC SURGERY [address] [facility] [address] Dept: [phone] Dept Loc: [phone] Visit type: New Reason for Visit: Pleural effusion Assessment: 1. Pleural effusion on left 2. Chronic combined systolic (congestive) and diastolic (congestive) heart failure (HCC) 3. Atrial fibrillation, unspecified type (HCC) Recommendations: She has a longstanding left pleural effusion from unknown etiology, though heart failure is the leading possibility. Unfortunately, all her previous workup has been done elsewhere. Our next step in management will be to get a current CT chest to evaluate the fluid. I would also like to get echocardiogram and office visit notes from cardiology in [place]. Even without this information I did propose several options for treatment. This includes: Doing nothing other than thoracentesis as needed. Most people tire out of this option very quickly. Hospital admission, chest tube placement, and fibrinolytic therapy. This option avoids surgery in a 79 year old frail patient but compels us to settle for a less than ideal result many times. Surgical decortication--painfu l, traumatic, but definitely most effective. I would have to make sure she is capable of this medically first PleurX catheter placement--really the last resort as it means she is giving up but definitely tolerable and something to talk more about if the above options fail. After I evaluate her CT scan we will talk again about the options. History of Present Illness Criselda Storm is a 79 y.o. female referred by Dr. Acosta for recurrent left pleural effusion. Per note, patient has had recurrent pleural effusion of left lung which began after she developed A fib and acute heart failure. Pt underwent ablation on 07/03/2023. Pt recently had reported shortness of breath, CXR was ordered which showed unchanged cardiomegaly and a moderate left pleural effusion. Pt underwent US guided left thoracentesis on 06/03/24 with 900 mL clear yellow fluid removed. Cytology was negative for malignancy. Pt followed up with PCP on 06/22/24 where she reported occasional shortness of breath and fatigue. Pt was referred to pulmonary rehab and follow up CXR was ordered. CXR on 06/24/24 showed a large leftpleural effusion occupying greater than 60% of the left hemithorax. Patient is a former smoker. Patient is here today for an evaluation. She complains of worsening shortness of breath over the last few months. There is some associated pleuritic pain as well, but this may be due to her thoracentesis. She did feel a little better after the thoracentesis, however. Past Medical History Medical History[1] Past Surgical History Surgical History[2] Family History Family History[3] Social History Marital status: ? Work history: Retired [place] status: Never Served Social History[4] Allergies Allergies[5] Medications Current Medications[6] Review of Systems Review of Systems Constitutional: Easily fatigued HENT: Negative. Eyes: Negative. Respiratory: SOB on exertion Cardiovascular: Negative. Gastrointestinal: Negative. Endocrine: Negative. Genitourinary: Negative. Musculoskeletal: Left upper/mid back pain Skin: Negative. Allergic/Immunologic: Negative. Neurological: Negative. Hematological: Negative. Psychiatric/Behaviora l: Negative. Physical Exam Vitals: BP 98/56 (BP Location: Left arm, Patient Position: Sitting, BP Cuff Size: Large adult) Pulse 61 Wt 113 lb (51.3 kg) Constitutional: General: Not in acute distress. Appearance: Normal appearance. Not toxic-appearing. Ear, nose, mouth: Bilateral external ear and nose normal. Nose: Nose normal. Mouth: Appearance normal, no bleeding, moist mucus membranes Eyes: General: No scleral icterus. No discharge from bilateral eyes Extraocular Movements: Extraocular movements intact. Pupils equal and reactive bilaterally Cardiovascular: Heart: Regular rhythm. Normal heart sounds. Vascular: No carotid bruit. Edema: no edema in bilateral lower extremities Pulmonary: Effort: Pulmonary effort is normal. No respiratory distress. Breath sounds: Normal breath sounds. No wheezing. Chest wall: No tenderness. Abdominal: Appearance: Not distended Palpations: There is no abdominal tenderness, no guarding. Musculoskeletal: Bilateral upper and lower extremities: Normal range of motion, no deformity Head: Normocephalic and atraumatic. Neck: Normal range of motion and neck supple. No muscular tenderness. Lymphadenopathy: Cervical: No cervical adenopathy. Skin: General: Skin is warm and dry. Coloration: Skin is not jaundiced. Neurological: General: No focal deficit present. Cranial Nerves: No obvious cranial nerve deficit. Psychiatric: Mood and Affect: Mood normal. Thought Content: Thought content gonzalo (more content not included)... Normal [facility] Absolute lymphocyte countOrd ered By: Rachna Acosta on 06-24-2024 Lymphocytes Auto (Unsp spec) [#/Vol] 0.99 10*3/uL 0.83-4.51 [facility] Absolute neutrophil countOrd ered By: Rachna Acosta on 06-24-2024 Neutrophils (Bld) [#/Vol] 3.8 10*3/uL 2.0-7.7 [facility] Anion gap in Serum or Plasma Ordered By: Rachna Acosta on 06-24-2024 Anion gap [Moles/Vol] 17 mmol/L High 5-15 [facility] Automated lymphocyte count a s percentage of total leukocytesOrdered By: Rachna Acosta on 06-24-2024 Lymphocytes/100 WBC Auto (Unsp spec) 17.0 % Low 19-41 [facility] BUN/creatinine ratioOrdered By: Rachna Acosta on 06-24-2024 Urea nitrogen/Creatinine [Mass ratio] 19.5 mg/mg 10-20 [facility] Basophil percentageOrdered B y: Rachna Acosta on 06-24-2024 Basophils/100 WBC (Bld) 1.5 % High 0-1 [facility] Bilirubin, totalOrdered By: Rachna Acosta on 06-24-2024 Bilirubin [Mass/Vol] 0.44 mg/dL 0.00-1.30 [facility] CBC W/Diff, Automatedon Absolute Lymph 0.99 X10 3/uL Normal 0.83-4.51 [facility] Comment on above: Performed By: #### L 501.9520, L100.0100, L500.4050 ####[facility] [address] [place], [address] Absolute Neut 3.8 X10 3/uL Normal 2.0-7.7 [facility] Comment on above: Performed By: #### L 501.9520, L100.0100, L500.4050 ####[facility] [address] [place], [address] Basophils/100 WBC (Bld) 1.5 % High 0-1 [facility] Comment on above: Performed By: #### L 501.9520, L100.0100, L500.4050 ####[facility] [address] [place], [address] Eosinophils/100 WBC (Bld) 2.9 % Normal 0-5 [facility] Comment on above: Performed By: #### L 501.9520, L100.0100, L500.4050 ####[facility] [address] [place], [address] Erythrocyte distribution width (RBC) [Ratio] 14.3 % Normal 11.6-14.6 [facility] Comment on above: Performed By: #### L 501.9520, L100.0100, L500.4050 ####[facility] [address] [place], [address] Hematocrit (Bld) [Volume fraction] 37.8 % Normal 37-47 [facility] Comment on above: Performed By: #### L 501.9520, L100.0100, L500.4050 ####[facility] [address] [place], [address] Hemoglobin (Bld) [Mass/Vol] 12.3 g/dL Normal 12.0-15.0 [facility] Comment on above: Performed By: #### L 501.9520, L100.0100, L500.4050 ####[facility] [address] [place], [address] IG% 0.300 Normal 0.0-0.9 [facility] Comment on above: Result Comment: IG% - Immature Granulocytes (promyelocytes, myelocytes and metamyelocytes) > 1% indicates that a LEFT SHIFT is Present. Performed By: #### L 501.9520, L100.0100, L500.4050 ####[facility] [address] [place], [address] Lymphocytes/100 WBC (Bld) 17.0 % Low 19-41 [facility] Comment on above: Performed By: #### L 501.9520, L100.0100, L500.4050 ####[facility] [address] [place], [address] MCH (RBC) [Entitic mass] 30.9 pg Normal 27.0-32.0 [facility] Comment on above: Performed By: #### L 501.9520, L100.0100, L500.4050 ####[facility] [address] [place], [address] MCHC (RBC) [Mass/Vol] 32.5 g/dL Normal 32-36 [facility] Comment on above: Performed By: #### L 501.9520, L100.0100, L500.4050 ####[facility] [address] [place], [address] MCV (RBC) [Entitic vol] 95.0 fL Normal 81-99 [facility] Comment on above: Performed By: #### L 501.9520, L100.0100, L500.4050 ####[facility] [address] [place], [address] Monocytes/100 WBC (Bld) 12.5 % High 0-10 [facility] Comment on above: Performed By: #### L 501.9520, L100.0100, L500.4050 ####[facility] [address] [place], [address] Neutrophils/100 WBC (Bld) 65.8 % Normal 47-70 [facility] Comment on above: Performed By: #### L 501.9520, L100.0100, L500.4050 ####[facility] [address] [place], [address] Nucleated RBC (Bld) [#/Vol] 0 10*3/uL Normal 0-5 [facility] Comment on above: Performed By: #### L 501.9520, L100.0100, L500.4050 ####[facility] [address] [place], [address] Platelet mean volume (Bld) [Entitic vol] 10.5 fL Normal 6.2-12.0 [facility] Comment on above: Performed By: #### L 501.9520, L100.0100, L500.4050 ####[facility] [address] [place], [address] Platelets (Bld) [#/Vol] 395 10*3/uL Normal 150-450 [facility] Comment on above: Performed By: #### L 501.9520, L100.0100, L500.4050 ####[facility] [address] [place], [address] RBC (Bld) [#/Vol] 3.98 10*6/uL Low 4.2-5.4 [facility] Comment on above: Performed By: #### L 501.9520, L100.0100, L500.4050 ####[facility] [address] [place], [address] RDW SD 49.5 fl High 35.1-43.9 [facility] Comment on above: Performed By: #### L 501.9520, L100.0100, L500.4050 ####[facility] [address] [place], [address] WBC (Bld) [#/Vol] 5.8 10*3/uL Normal 4.4-11.0 [facility] Comment on above: Performed By: #### L 501.9520, L100.0100, L500.4050 ####[facility] [address] [place], [address] Carbon dioxide, total [Moles /volume] in Central venous bloodOrdered By: Rachna Acosta on 06-24-2024 CO2 [Moles/Vol] 20.4 mmol/L Low 21.0-32.0 [facility] Chest PA and Lateralon 06-24 Chest PA and Lateral [facility] Imaging Services [address] [place] [address] Chest PA and Lateral MR#: [id number] Acct: [id number] Name: CRISELDA STORM Rep #: [id number] : 1945 F 79 From: John Berrios i, MD PCP: Dr. Rachna Acosta DO Status: REG CLI Study: Chest PA and Lateral Date of Exam: 06/24/24 Exam# [id number] Ordering Dr: Rachna Acosta DO PROCEDURE: CHEST PA AND LATERAL 06/24/2024 REASON FOR EXAM: DYSPNEA TECHNIQUE: Frontal and lateral views of the chest. COMPARISON: Chest x-ray dated 06/03/2024. FINDINGS: Large left-sided pleural effusion is present occupying greater than 60% of the left hemithorax. Underlying mass can not be ruled out. Surgical clips seen within the right lower lung zone. Right basilar infiltrate is also present. Mild vascular congestion is present. No pneumothorax. RAD/Chest PA and Lateral IMPRESSION: Large left-sided pleural effusion, significantly increased since prior examination. Follow-up until complete resolution. Underlying masses can not be ruled out. Reading Location: [id number] CC: Dr. Rachna Acosta DO Radio Operator Ground: Signed Normal [facility] Chloride assayOrdered By: Michelle Acosta on 06-24-2024 Chloride [Moles/Vol] 98 mmol/L 98-108 [facility] Comprehensive Metabolic Prof ilon 06-24-2024 Albumin [Mass/Vol] 3.8 g/dL Normal 3.4-4.8 [facility] Comment on above: Performed By: #### L 501.9520, L100.0100, L500.4050 ####[facility] [address] [place], [address] Albumin/Globulin [Mass ratio] 1.2 {ratio} Normal 0.9-2.4 [facility] Comment on above: Performed By: #### L 501.9520, L100.0100, L500.4050 ####[facility] [address] [place], [address] ALK PHOS 144 U/L High 35-104 [facility] Comment on above: Performed By: #### L 501.9520, L100.0100, L500.4050 ####[facility] [address] [place], [address] ALT [Catalytic activity/Vol] 7 U/L Normal <=34 [facility] Comment on above: Performed By: #### L 501.9520, L100.0100, L500.4050 ####[facility] [address] [place], [address] AST [Catalytic activity/Vol] 16 U/L Normal <=31 [facility] Comment on above: Performed By: #### L 501.9520, L100.0100, L500.4050 ####[facility] [address] [place], [address] Bilirubin [Mass/Vol] 0.44 mg/dL Normal 0.00-1.30 [facility] Comment on above: Performed By: #### L 501.9520, L100.0100, L500.4050 ####[facility] [address] [place], [address] BUN/CRE 19.5 RATIO Normal 10-20 [facility] Comment on above: Performed By: #### L 501.9520, L100.0100, L500.4050 ####[facility] [address] [place], [address] Calcium [Mass/Vol] 9.2 mg/dL Normal 7.6-11.0 [facility] Comment on above: Performed By: #### L 501.9520, L100.0100, L500.4050 ####[facility] [address] [place], [address] Chloride [Moles/Vol] 98 mmol/L Normal 98-108 [facility] Comment on above: Performed By: #### L 501.9520, L100.0100, L500.4050 ####[facility] [address] [place], [address] CO2 [Moles/Vol] 20.4 mmol/L Low 21.0-32.0 [facility] Comment on above: Performed By: #### L 501.9520, L100.0100, L500.4050 ####[facility] [address] [place], [address] Creatinine [Mass/Vol] 0.71 mg/dL Normal 0.70-1.20 [facility] Comment on above: Performed By: #### L 501.9520, L100.0100, L500.4050 ####[facility] [address] [place], [address] GAP 17 High 5-15 [facility] Comment on above: Performed By: #### L 501.9520, L100.0100, L500.4050 ####[facility] [address] [place], [address] GFR/1.73 sq M.predicted among non-blacks MDRD (S/P/Bld) [Vol rate/Area] 87 mL/min/{1.73_m2} Normal >60 [facility] Comment on above: Result Comment: mL/m in/1.73m2 CKD-EPI Creatinine Equation (2020) Performed By: #### L 501.9520, L100.0100, L500.4050 ####[facility] [address] [place], [address] Globulin (S) [Mass/Vol] 3.2 g/dL Normal 2.2-4.2 [facility] Comment on above: Performed By: #### L 501.9520, L100.0100, L500.4050 ####[facility] [address] [place], [address] Glucose [Mass/Vol] 102 mg/dL High 70-99 [facility] Comment on above: Performed By: #### L 501.9520, L100.0100, L500.4050 ####[facility] [address] [place], [address] Potassium [Moles/Vol] 4.3 mmol/L Normal 3.3-5.1 [facility] Comment on above: Performed By: #### L 501.9520, L100.0100, L500.4050 ####[facility] [address] [place], [address] Sodium [Moles/Vol] 135 mmol/L Normal 133-145 [facility] Comment on above: Performed By: #### L 501.9520, L100.0100, L500.4050 ####[facility] [address] [place], [address] T PROT 7.0 g/dL Normal 5.9-8.4 [facility] Comment on above: Performed By: #### L 501.9520, L100.0100, L500.4050 ####[facility] [address] [place], [address] Urea nitrogen [Mass/Vol] 14 mg/dL Normal 4-19 [facility] Comment on above: Performed By: #### L 501.9520, L100.0100, L500.4050 ####[facility] [address] [place], [address] Eosinophil percentageOrdered By: Rachna Acosta on 06-24-2024 Eosinophils/100 WBC (Bld) 2.9 % 0-5 [facility] Erythrocyte distribution wid th ratioOrdered By: Rachna Acosta on 06-24-2024 Erythrocyte distribution width (RBC) [Ratio] 14.3 % 11.6-14.6 [facility] Erythrocyte distribution wid th standard deviationOrdered By: Rachna Acosta on 06-24-2024 Erythrocyte distribution width (RBC) [Ratio] 49.5 fl High 35.1-43.9 [facility] Glomerular filtration rate ( GFR) estimation/1.73 sq m using serum, plasma, or whole bOrdered By: Rachna Acosta on 06-24-2024 GFR/1.73 sq M.predicted among non-blacks MDRD (S/P/Bld) [Vol rate/Area] 87 mL/min/{1.73_m2} >60 [facility] Comment on above: mL/min/1.73m2 CKD-EP I Creatinine Equation (2020) Hematocrit Auto (Bld) [Volum e fraction]Ordered By: Rachna Acosta on 06-24-2024 Hematocrit (Bld) [Volume fraction] 37.8 % 37-47 [facility] Hemoglobin measurementOrdere d By: Rachna Acosta on 06-24-2024 Hemoglobin (Bld) [Mass/Vol] 12.3 g/dL 12.0-15.0 [facility] Immature granulocytes/100 WB C Auto (Bld)Ordered By: Rachna Acosta on 06-24-2024 Immature granulocytes/100 WBC (Bld) 0.300 % 0.0-0.9 [facility] Comment on above: IG% - Immature Granu locytes (promyelocytes, myelocytes and metamyelocytes) > 1% indicates that a LEFT SHIFT is Present. Laboratory - Chemistry and C hemistry - challengeOrdered By: Rachna Acosta on 06-24-2024 AST [Catalytic activity/Vol] 16 U/L <32 [facility] MCV (mean corpuscular volume ) determinationOrdered By: Rachna Acosta on 06-24-2024 MCV (RBC) [Entitic vol] 95.0 fL 81-99 [facility] Mean corpuscular hemoglobin (MCH) determinationOrdered By: Rachna Acosta on 06-24-2024 MCH (RBC) [Entitic mass] 30.9 pg 27.0-32.0 [facility] Mean corpuscular hemoglobin concentration (MCHC) determinationOrdered By: Rachna Acosta on 06-24-2024 MCHC (RBC) [Mass/Vol] 32.5 g/dL 32-36 [facility] Mean platelet volume determi nationOrdered By: Rachna Acosta on 06-24-2024 Platelet mean volume (Bld) [Entitic vol] 10.5 fL 6.2-12.0 [facility] Monocyte percentageOrdered B y: Rachna Acosta on 06-24-2024 Monocytes/100 WBC (Bld) 12.5 % High 0-10 [facility] Neutrophil percentageOrdered By: Rachna Acosta on 06-24-2024 Neutrophils/100 WBC (Bld) 65.8 % 47-70 [facility] Nucleated red blood cell per centageOrdered By: Rachna Acosta on 06-24-2024 Nucleated RBC/100 WBC (Bld) [Ratio] 0 % 0-5 [facility] Platelet countOrdered By: Michelle Acosta on 06-24-2024 Platelets (Bld) [#/Vol] 395 10*3/uL 150-450 [facility] Potassium measurement (mass/ volume)Ordered By: Rachna Acosta on 06-24-2024 Potassium (Unsp spec) [Mass/Vol] 4.3 mmol/L 3.3-5.1 [facility] RBC Auto (Bld) [#/Vol]Ordere d By: Rachna Acosta on 06-24-2024 RBC (Bld) [#/Vol] 3.98 10*6/uL Low 4.2-5.4 [facility] Serum creatinine measurement (mass/volume)Ordered By: Rachna Acosta on 06-24-2024 Creatinine [Mass/Vol] 0.71 mg/dL 0.70-1.20 [facility] Serum globulin measurementOr dered By: Rachna Acosta on 06-24-2024 Globulin (S) [Mass/Vol] 3.2 g/dL 2.2-4.2 [facility] Serum glucose measurement (m ass/volume)Ordered By: Rachna Acosta on 06-24-2024 Glucose [Mass/Vol] 102 mg/dL High 70-99 [facility] Serum or plasma alanine carlos otransferase (ALT) measurementOrdered By: Rachna Acosta on 06-24-2024 ALT [Catalytic activity/Vol] 7 U/L <35 [facility] Serum or plasma albumin ollie urement (mass/volume)Ordered By: Rachna Acosta on 06-24-2024 Albumin [Mass/Vol] 3.8 g/dL 3.4-4.8 [facility] Serum or plasma albumin/glob ulin mass ratioOrdered By: Rachna Acosta on 06-24-2024 Albumin/Globulin [Mass ratio] 1.2 {ratio} 0.9-2.4 [facility] Serum or plasma alkaline nneka sphatase measurementOrdered By: Rachna Acosta on 06-24-2024 ALP [Catalytic activity/Vol] 144 U/L High 35-104 [facility] Serum or plasma calcium ollie urement (mass/volume)Ordered By: Rachna Acosta on 06-24-2024 Calcium [Mass/Vol] 9.2 mg/dL 7.6-11.0 [facility] Serum or plasma urea nitroge n measurement (mass/volume)Ordered By: Rachna Acosta on 06-24-2024 Urea nitrogen [Mass/Vol] 14 mg/dL 4-19 [facility] Sodium levelOrdered By: Rachna Acosta on 06-24-2024 Sodium [Moles/Vol] 135 mmol/L 133-145 [facility] TSH DL <= 0.005 mIU/L QnOrde red By: Rachna Acosta on 06-24-2024 TSH Qn 4.800 uIU/mL High 0.300-4.200 [facility] Thyroid Stim Hormone (TSH)on 06-24-2024 TSH 4.800 uIU/mL High 0.300-4.200 [facility] Comment on above: Performed By: #### L 501.9520, L100.0100, L500.4050 ####[facility] [address] [place], [address] Total proteinOrdered By: Ashley Acosta on 06-24-2024 Protein [Mass/Vol] 7.0 g/dL 5.9-8.4 [facility] White blood cell (WBC) count Ordered By: Rachna Acosta on 06-24-2024 WBC (Bld) [#/Vol] 5.8 10*3/uL 4.4-11.0 [facility] Body fluid lactate dehydroge nase measurement (enzymatic activity/volume) by pyruvateOrdered By: Rachna Acosta on 06-03-2024 LDH Pyruvate to lactate reaction (Body fld) [Catalytic activity/Vol] 74 Units/L Not Establ. [facility] Body fluid protein measureme nt (mass/volume)Ordered By: Rachna Acosta on 06-03-2024 Protein (Body fld) [Mass/Vol] 4.2 g/dL Not Establ. [facility] Chest Insp/Exp 2 Viewon 05-19 Chest Insp/Exp 2 View [facility] Imaging Services [address] [place] [address] Chest Insp/Exp 2 View MR#: [id number] Acct: [id number] Name: CRISELDA STORM Rep #: [id number] : 1945 F 79 From: Sean kaplan MD PCP: Dr. Rachna Acosta DO Status: REG CLI Study: Chest Insp/Exp 2 View Date of Exam: 06/03/24 Exam# [id number] Ordering Dr: Sean Pandya EXAM: Frontal inspiration expiration views. CLINICAL HISTORY: Status post left thoracentesis. COMPARISON: Comparison is made with prior study dated May 31, 2024. TECHNIQUE: AP inspiration expiration views were obtained. FINDINGS: The patient is status post left thoracentesis. No evidence of pneumothorax. Mild residual left pleural-parenchymal changes. RAD/Chest Insp/Exp 2 View IMPRESSION: No evidence of pneumothorax on the immediate post left thoracentesis examination. Reading Location: [place] [address] CC: Dr. Sean Pandya MD; Dr. Rachna Acosta DO Radio Operator Ground: Signed Normal [facility] Cytology report of Body flui d Cyto stainOrdered By: Rachna Acosta on 06-03-2024 Cytology report Cyto stain Doc (Body fld) SEE PATHOLOGY REPORT [facility] Comment on above: Specimen submitted t o Anatomical Pathology Department for testing. Cytology, Body Fluid / CSFon 06-03-2024 CYTOLOGY,BF/CSF SEE PATHOLOGY REPORT Normal [facility] Comment on above: Order Comment: LT TH ORA MEDICAL MANAGER PETER Result Comment: Spec imen submitted to Anatomical Pathology Department for testing. Performed By: #### L 350.1000, L504.0250, L503.0100, L503.0300 ####[facility] [address] [place], [address] Glucose, Body Fluidon 2024 GLUC, BODY FLD 92 mg/dL Normal Not Establ. [facility] Comment on above: Order Comment: LT TH ORA MEDICAL MANAGER BORDNER Performed By: #### L 350.1000, L504.0250, L503.0100, L503.0300 ####[facility] [address] [place], [address] LDH,Body Fluidon 06-03-2024 LDH,BF 74 Units/L Normal Not Establ. [facility] Comment on above: Order Comment: LT TH ORA MEDICAL MANAGER BORDNER Performed By: #### L 350.1000, L504.0250, L503.0100, L503.0300 ####[facility] [address] [place], [address] Operative Reporton 5 Operative Report [facility] Medical Records Department [address] [place] [address] Operative Report 06/03/24 0904 MR#: [id number] Acct: [id number] Name: CRISELDA STORM Rep #: [id number] : 1945 79 From: mAanda BURNETT PCP: Dr. Rachna Acosta, DO Status:REG CLI Location: US Problems Associated Problem List Diagnoses (1) Pleural effusion: (2) Shortness of breath: Multi Select Codes Radiology Radiology US Procedures: 56359 Thoracentesis Operative Report (Standard) Operative Information Date of Procedure: 06/03/24 Pre-Operative Diagnosis: Pleural effusion Post-Operative Diagnosis: Pleural effusion Surgery/Procedure Performed: Ultrasound-guided thoracentesis hotel manager: No Type of Anesthesia: Local Procedure Start Time: 08:43 Procedure Stop Time: 08:58 Select all DRAINS/GRAFTS/IMPLANT S that apply: None Estimated Blood Loss: 0 Specimen collected: Yes Description of specimen(s) removed: 100 mL of clear yellow fluid Description of surgery: PROCEDURE: Ultrasound Guided Thoracentesis ORDERING PROVIDER: Dr. Rachna Acosta INDICATION: Female, 79 years old. Pleural effusion. PROVIDER: ANKIT Tarango __ PROCEDURE: The risks, benefits, and alternatives to the procedure were explained to the patient. The specific risks of bleeding, infection, and pneumothorax requiring chest tube insertion were discussed and accepted. Written informed consent was obtained. The patient is noted to be on Eliquis and it was held preprocedure. This was discussed with Dr. Pandya who agreed to proceed. The patient was placed in the sitting, upright position. Ultrasonographic evaluation of the bilateral lower pleural spaces was carried out. An adequate pocket was identified in the left lower pleural space. The overlying skin was prepped with chlorhexidine and draped in sterile fashion. 2 % lidocaine was administered subcutaneously for local anesthesia. Under ultrasound guidance, a 5- Nepalese thoracentesis needle/catheter system was advanced into the left posterior lower pleural fluid collection. 900 ml of clear yellow colored fluid was drained. A sample was sent to the lab for diagnostic purposes. The catheter was removed, and a sterile dressing was applied. The patient tolerated the procedure well. A chest x-ray was ordered and personally interpreted by myself and Dr. Pandya. There was no evidence of pneumothorax. There were no immediate complications. The procedure was proctored by interventional radiologist Dr. Pandya. IMPRESSION: Successful ultrasound guided thoracentesis of left pleural effusion. Surgical Findings: None Complications Complications: No 06/03/24 0914 Cosigner Signature (if applicable): CC: LEX Green; Dr. Rachna Acosta, Signed Normal [facility] Protein, Body Fluidon 2024 Protein [Mass/Vol] 4.2 g/dL Normal Not Establ. [facility] Comment on above: Order Comment: RICARDA GREEN Performed By: #### L 350.1000, L504.0250, L503.0100, L503.0300 ####[facility] [address] [place], [address] Special Stain Group IIon Special Stain Group II ---- -------- Patient Age/Sex Location Account Attending Physician -------- CRISELDA STORM 79/F [id number] Dr. Rachna Acosta DO -------- Specimen: [id number] Received: 06/03/24 Status: RONDA Lua Num: [id number] Spec Type: Fluid Subm Dr: DO BRENDA Steinberg OPERATION: Ultrasound guided thoracentesis fluid PRE-OP DIAGNOSIS: Pleural effusion TISSUE SUBMITTED: A- Thoracentesis fluid for cytology -------- DIAGNOSIS CYTOLOGY A. Pleural fluid: * No malignant cells are identified A. CYTOLOGY STUDY Slides are reviewed. CYTOLOGY GROSS A. Received is 85 ml of hazy-yellow fluid labeled with the patient's name and and designated per the requisition as Thoracentesis fluid. Submitted for cytology and cell block preparation. Mr 06/03/2024 CPT: 24594 Signed (signature on file) Dr. Caterina Varela DO 06/05/24 1424 -------- Normal [facility] Comment on above: Performed By: #### P SSII ####[facility] [address] [facility] [place], [place], [id number] 12 Lead EKGon 05-31-2024 12 Lead EKG [facility] Cardiovascular Services [address] [place] [address] 12 Lead EKG 05/31/24 1620 MR#: [id number] Acct: [id number] Name: CRISELDA STORM Rep #: [id number] : 1945 79 From: John Ledezma MD Attending Dr: Status: DEP ER Ordering Dr: Omar Greene DO Date: 05/31/24 Location: ED Sex: F C Admitted: Test Reason : CP Blood Pressure : */* mmHG Vent. Rate : 84 BPM Atrial Rate : 84 BPM P-R Int : 156 ms QRS Dur : 72 ms QT Int : 372 ms P-R-T Axes : 59 25 -8 degrees QTcB Int : 439 ms Normal sinus rhythm Low voltage QRS Nonspecific ST and T wave abnormality Abnormal ECG Confirmed by John Ledezma ([id number]), map editor KAVEH MARROQUIN ([id number]) on 06/01/2024 1:18:32 PM Referred By: NABOR/JEY Confirmed By: John Ledezma 06/01/24 1318 Date John Ledezma MD CC: Dr. Omar Greene, ; Dr. Rachna Acosta DO Signed Normal [facility] Absolute lymphocyte countOrd ered By: Omar Greene on 05-31-2024 Lymphocytes Auto (Unsp spec) [#/Vol] 1.01 10*3/uL 0.83-4.51 [facility] Absolute neutrophil countOrd ered By: Omar Greene on 05-31-2024 Neutrophils (Bld) [#/Vol] 3.6 10*3/uL 2.0-7.7 [facility] Anion gap in Serum or Plasma Ordered By: Omar Greene on 05-31-2024 Anion gap [Moles/Vol] 11 mmol/L 5-15 [facility] Automated lymphocyte count a s percentage of total leukocytesOrdered By: Omar Greene on 05-31-2024 Lymphocytes/100 WBC Auto (Unsp spec) 17.9 % Low 19-41 [facility] BUN/creatinine ratioOrdered By: Omar Greene on 05-31-2024 Urea nitrogen/Creatinine [Mass ratio] 23.2 mg/mg High 10-20 [facility] Basic Metabolic Profile (BMP )on 05-31-2024 BUN/CRE 23.2 RATIO High - [facility] Comment on above: Performed By: #### L 100.0100, L500.2500, L501.4021 ####[facility] [address] [place], [address] Calcium [Mass/Vol] 9.6 mg/dL Normal 7.6-11.0 [facility] Comment on above: Performed By: #### L 100.0100, L500.2500, L501.4021 ####[facility] [address] [place] [place], [address] Chloride [Moles/Vol] 95 mmol/L Low 98-108 [facility] Comment on above: Performed By: #### L 100.0100, L500.2500, L501.4021 ####[facility] [address] [place], [address] CO2 [Moles/Vol] 26.3 mmol/L Normal 21.0-32.0 [facility] Comment on above: Performed By: #### L 100.0100, L500.2500, L501.4021 ####[facility] [address] [place], [address] Creatinine [Mass/Vol] 0.73 mg/dL Normal 0.70-1.20 [facility] Comment on above: Performed By: #### L 100.0100, L500.2500, L501.4021 ####[facility] [address] [place], [address] ECRCL 50.05 ml/min Normal 50-250 [facility] Comment on above: Performed By: #### L 100.0100, L500.2500, L501.4021 ####[facility] [address] [place], [address] GAP 11 Normal 5-15 [facility] Comment on above: Performed By: #### L 100.0100, L500.2500, L501.4021 ####[facility] [address] [place], [address] GFR/1.73 sq M.predicted among non-blacks MDRD (S/P/Bld) [Vol rate/Area] 85 mL/min/{1.73_m2} Normal >60 [facility] Comment on above: Result Comment: mL/m in/1.73m2 CKD-EPI Creatinine Equation (2020) Performed By: #### L 100.0100, L500.2500, L501.4021 ####[facility] [address] [place], [address] Glucose [Mass/Vol] 118 mg/dL High 70-99 [facility] Comment on above: Performed By: #### L 100.0100, L500.2500, L501.4021 ####[facility] [address] [place], [address] Potassium [Moles/Vol] 3.9 mmol/L Normal 3.3-5.1 [facility] Comment on above: Performed By: #### L 100.0100, L500.2500, L501.4021 ####[facility] [address] [place], [address] Sodium [Moles/Vol] 132 mmol/L Low 133-145 [facility] Comment on above: Performed By: #### L 100.0100, L500.2500, L501.4021 ####[facility] [address] [place], [address] Urea nitrogen [Mass/Vol] 17 mg/dL Normal 4-19 [facility] Comment on above: Performed By: #### L 100.0100, L500.2500, L501.4021 ####[facility] [address] [place], [address] Basophil percentageOrdered B y: Omar Greene on 05-31-2024 Basophils/100 WBC (Bld) 1.8 % High 0-1 [facility] CBC W/Diff, Automatedon 05-19 Absolute Lymph 1.01 X10 3/uL Normal 0.83-4.51 [facility] Comment on above: Performed By: #### L 100.0100, L500.2500, L501.4021 ####[facility] [address] [place], [address] Absolute Neut 3.6 X10 3/uL Normal 2.0-7.7 [facility] Comment on above: Performed By: #### L 100.0100, L500.2500, L501.4021 ####[facility] [address], [address] Basophils/100 WBC (Bld) 1.8 % High 0-1 [facility] Comment on above: Performed By: #### L 100.0100, L500.2500, L501.4021 ####[facility] [address] [place], [address] Eosinophils/100 WBC (Bld) 2.3 % Normal 0-5 [facility] Comment on above: Performed By: #### L 100.0100, L500.2500, L501.4021 ####[facility] [address] [place], [address] Erythrocyte distribution width (RBC) [Ratio] 13.8 % Normal 11.6-14.6 [facility] Comment on above: Performed By: #### L 100.0100, L500.2500, L501.4021 ####[facility] [address] [place], [address] Hematocrit (Bld) [Volume fraction] 42.1 % Normal 37-47 [facility] Comment on above: Performed By: #### L 100.0100, L500.2500, L501.4021 ####[facility] [address] [place], [address] Hemoglobin (Bld) [Mass/Vol] 13.6 g/dL Normal 12.0-15.0 [facility] Comment on above: Performed By: #### L 100.0100, L500.2500, L501.4021 ####[facility] [address] [place], [address] IG% 0.500 Normal 0.0-0.9 [facility] Comment on above: Result Comment: IG% - Immature Granulocytes (promyelocytes, myelocytes and metamyelocytes) > 1% indicates that a LEFT SHIFT is Present. Performed By: #### L 100.0100, L500.2500, L501.4021 ####[facility] [address] [place], [address] Lymphocytes/100 WBC (Bld) 17.9 % Low 19-41 [facility] Comment on above: Performed By: #### L 100.0100, L500.2500, L501.4021 ####[facility] [address] [place], [address] MCH (RBC) [Entitic mass] 30.6 pg Normal 27.0-32.0 [facility] Comment on above: Performed By: #### L 100.0100, L500.2500, L501.4021 ####[facility] [address] [place], [address] MCHC (RBC) [Mass/Vol] 32.3 g/dL Normal 32-36 [facility] Comment on above: Performed By: #### L 100.0100, L500.2500, L501.4021 ####[facility] [address] [place], [address] MCV (RBC) [Entitic vol] 94.8 fL Normal 81-99 [facility] Comment on above: Performed By: #### L 100.0100, L500.2500, L501.4021 ####[facility] [address] [place], [address] Monocytes/100 WBC (Bld) 13.1 % High 0-10 [facility] Comment on above: Performed By: #### L 100.0100, L500.2500, L501.4021 ####[facility] [address] [place], [address] Neutrophils/100 WBC (Bld) 64.4 % Normal 47-70 [facility] Comment on above: Performed By: #### L 100.0100, L500.2500, L501.4021 ####[facility] [address] [place], [address] Nucleated RBC (Bld) [#/Vol] 0 10*3/uL Normal 0-5 [facility] Comment on above: Performed By: #### L 100.0100, L500.2500, L501.4021 ####[facility] [address] [place], [address] Platelet mean volume (Bld) [Entitic vol] 10.3 fL Normal 6.2-12.0 [facility] Comment on above: Performed By: #### L 100.0100, L500.2500, L501.4021 ####[facility] [address] [place], [address] Platelets (Bld) [#/Vol] 438 10*3/uL Normal 150-450 [facility] Comment on above: Performed By: #### L 100.0100, L500.2500, L501.4021 ####[facility] [address] [place], [address] RBC (Bld) [#/Vol] 4.44 10*6/uL Normal 4.2-5.4 [facility] Comment on above: Performed By: #### L 100.0100, L500.2500, L501.4021 ####[facility] [address] [place], [address] RDW SD 48.1 fl High 35.1-43.9 [facility] Comment on above: Performed By: #### L 100.0100, L500.2500, L501.4021 ####[facility] [address] [place], [address] WBC (Bld) [#/Vol] 5.6 10*3/uL Normal 4.4-11.0 [facility] Comment on above: Performed By: #### L 100.0100, L500.2500, L501.4021 ####[facility] [address] [place], [address] Carbon dioxide, total [Moles /volume] in Central venous bloodOrdered By: Omar Greene on 05-31-2024 CO2 [Moles/Vol] 26.3 mmol/L 21.0-32.0 [facility] Chest PA and Lateralon 05-31 Chest PA and Lateral [facility] Imaging Services [address] [place] [address] Chest PA and Lateral MR#: [id number] Acct: [id number] Name: CRISELDA STORM Rep #: [id number] : 1945 F 79 From: Migel Ribeiro PCP: Dr. Rachna Acosta DO Status: REG ER Study: Chest PA and Lateral Date of Exam: 05/31/24 Exam# [id number] Ordering Dr: Omar Greene DO PROCEDURE: CHEST PA AND LATERAL 05/31/2024 REASON FOR EXAM: DYSPNEA TECHNIQUE: Frontal and lateral views of the chest. COMPARISON: 03/23/2024 FINDINGS: Mild cardiomegaly. Unchanged moderate left pleural effusion with probable adjacent atelectasis. Right lung is relatively clear. No sizable pneumothorax. Mild emphysema. RAD/Chest PA and Lateral IMPRESSION: Unchanged cardiomegaly and moderate left pleural effusion. Reading Location: [facility] CC: Dr. Omar Greene DO; Dr. Rachna Acosta DO Radio Operator Ground: Signed Normal [facility] Chloride assayOrdered By: Spike Greene on 05-31-2024 Chloride [Moles/Vol] 95 mmol/L Low 98-108 [facility] Emergency Department Summary on 05-31-2024 Emergency Department Summary [facility] Medical Records Department [address] [place] [address] Emergency Department Summary 05/31/24 MR#: [id number] Acct: [id number] Name: CRISELDA STORM Rep #: [id number] : 1945 79 From: Omar Greene DO PCP: Dr. Rachna Acosta DO Status:DEP ER Location: ED HPI History of Present Illness Chief Complaint: Shortness of Breath Informant: patient and family (Daughter) Narrative Narrative: 79-year-old female presenting to the emergency room with dyspnea. Patient states that yesterday she was getting some pots out of a drawer she felt a pop in her upper back. Since that time she has had some pain with movement in the upper right back and feels short of breath when the pain comes. She denies any known lung conditions. Daughter states that she has had a pleural effusion on prior chest x-ray has not required drainage. She is on apixaban. There is a history of CHF but has not been causing a problem in recent weeks. Patient does see local cardiology. She does not wear home oxygen. No reported fevers. No history of pneumothorax. Former smoker. Patient believes that her dyspnea is most likely due to some component of anxiety as well as the pain when she moves. She has some Tylenol with codeine at home she took 1 today but did not help with the pain. She notes a cough due to postnasal drip which is unchanged. Patient has been able to sleep laying down and typically sleeps in a bit of an angle that has not noticed any change in that. Patient is on Eliquis. She has not missed any doses. [facility] Medical History Neuropathy Hyperlipidemia Vitamin D deficiency Osteoporosis Bilateral cataracts Non-ischemic cardiomyopathy History of bilateral breast cancer Bilateral pleural effusion Atrial flutter Home Medications ???Medication ???Instructions ???Recorded ???Last Taken ???Type lorazepam 0.5 mg tablet 0.5 mg PO DAILY PRN anxiety 11/27/22 History metoprolol tartrate 50 mg tablet 50 mg PO BID #180 tabs 11/02/22 Rx handicap Placcard #1 ea 12/20/22 Unknown Rx empagliflozin 10 mg tablet 10 mg PO DAILY #30 tabs 03/29/24 U nknown Rx (Jardiance) sacubitril 24 mg-valsartan 26 mg 1 tab PO BID #180 tabs 02/26/24 Un known Rx tablet (Entresto) apixaban 5 mg tablet (Eliquis) 5 mg PO BID #180 tabs 04/06/24 Unk nown Rx hydrocodone-acetamino phen 5-325mg 1 tab PO Q6H PRN PRN Pain 3 days 05/31/24 Unknown Rx 5mg-325mg #12 TABLETS Allergy/AdvReac Type Severity Reaction Status Date / Time No Known Allergies Allergy Verified 05/31/24 17:52 Family History Father Myocardial infarction Brother Myocardial infarction Surgical History History of partial mastectomy of left breast History of open reduction and internal fixation (ORIF) procedure Social History household members: spouse housing: house Smoking Status: Former smoker how long ago did patient quit smokin years alcohol intake: current alcohol intake frequency: 0-2 drinks per day Alcohol type: wine substance use type: does not use caffeine: No ROS ROS ED Constitutional Constitutional ED: Denies chills or weight loss Eyes Eyes: Denies change in vision or diplopia ENT ENT ED: Denies ear pain, rhinorrhea or sore throat Cardiovascular Cardiovascular: Denies chest pain, orthopnea, palpitations or racing heartbeat Respiratory/Chest Respiratory/Chest: Reports dyspnea; Denies cough or orthopnea Gastrointestinal Gastrointestinal: Denies abdominal pain, diarrhea, nausea or vomiting Genitourinary Genitourinary ED: Denies dysuria, hematuria or urinary frequency Musculoskeletal Musculoskeletal: Reports back pain; Denies arthralgias or myalgias Integumentary Denies abscess or rash Neurologic Neurologic: Denies headache(s) or weakness Psychiatric Psychiatric: Denies anxiety, depression, suicidal ideation or suicidal thoughts Endocrine Endocrinology: Denies polydipsia, polyphagia or polyuria Allergic/Immunologic Allergic/Immunologic ED: Denies mouth swelling, tongue swelling or urticaria EXAM Physical Exam Const Vital Signs: 05/31/24 16:16 05/31/24 16:46 05/31/24 17:16 Temperature 97.9 F Temperature Source Oral Pulse Rate 81 80 Respiratory Rate 30 H 19 H Respiratory Effort Normal Non-Labored Respiratory Depth Normal Respiratory Pattern Tachypnea Blood Pressure 170/90 H 112/65 Blood Pressure Mean 116 80 Pulse Ox 94 96 Oxygen Delivery Method Room Air Room Air Room Air 05/31/24 17:52 Temperature Temperature Source Pulse Rate 72 Respiratory Rate 18 (more content not included)... Normal [facility] Eosinophil percentageOrdered By: Omar Greene on 05-31-2024 Eosinophils/100 WBC (Bld) 2.3 % 0-5 [facility] Erythrocyte distribution wid th (RBC) [Ratio]Ordered By: Omar Greene on 05-31-2024 Erythrocyte distribution width (RBC) [Entitic vol] 48.1 fL High 35.1-43.9 [facility] Erythrocyte distribution wid th ratioOrdered By: Omar Greene on 05-31-2024 Erythrocyte distribution width (RBC) [Ratio] 13.8 % 11.6-14.6 [facility] Erythrocyte distribution wid th standard deviationOrdered By: Omar Greene on 05-31-2024 Erythrocyte distribution width (RBC) [Ratio] 48.1 fl High 35.1-43.9 [facility] Estimation of creatinine kavita aranceOrdered By: Omar Greene on 05-31-2024 Estimated Creatinine Clearance Calc 50.05 ml/min 50-250 [facility] GFR/1.73 sq M.predicted surinder g non-blacks MDRD (S/P/Bld) [Vol rate/Area]Ordered By: Omar Greene on 05-31-2024 Estimated GFR (MDRD) Non-Af Amer 85 >60 [facility] Comment on above: mL/min/1.73m2 CKD-EP I Creatinine Equation (2020) Glomerular filtration rate ( GFR) estimation/1.73 sq m using serum, plasma, or whole bOrdered By: Omar Greene on 05-31-2024 GFR/1.73 sq M.predicted among non-blacks MDRD (S/P/Bld) [Vol rate/Area] 85 mL/min/{1.73_m2} >60 [facility] Comment on above: mL/min/1.73m2 CKD-EP I Creatinine Equation (2020) Hematocrit Auto (Bld) [Volum e fraction]Ordered By: Omar Greene on 05-31-2024 Hematocrit (Bld) [Volume fraction] 42.1 % 37-47 [facility] Hemoglobin measurementOrdere d By: Omar Greene on 05-31-2024 Hemoglobin (Bld) [Mass/Vol] 13.6 g/dL 12.0-15.0 [facility] Immature granulocytes/100 WB C Auto (Bld)Ordered By: Omar Greene on 05-31-2024 Immature granulocytes/100 WBC (Bld) 0.500 % 0.0-0.9 [facility] Comment on above: IG% - Immature Granu locytes (promyelocytes, myelocytes and metamyelocytes) > 1% indicates that a LEFT SHIFT is Present. L501.4021on 05-31-2024 Trop T High Sen 14 ng/L Normal <=14 [facility] Comment on above: Performed By: #### L 100.0100, L500.2500, L501.4021 ####[facility] [address] [place], [address] Lymphocytes Auto (Unsp spec) [#/Vol]Ordered By: Omar Greene on 05-31-2024 Lymphocytes (Bld) [#/Vol] 1.01 10*3/uL 0.83-4.51 [facility] Lymphocytes/100 WBC Auto (Un sp spec)Ordered By: Omar Greene on 05-31-2024 Lymphocytes/100 WBC (Bld) 17.9 % Low 19-41 [facility] MCV (mean corpuscular volume ) determinationOrdered By: Omar rGeene on 05-31-2024 MCV (RBC) [Entitic vol] 94.8 fL 81-99 [facility] Mean corpuscular hemoglobin (MCH) determinationOrdered By: Omar Greene on 05-31-2024 MCH (RBC) [Entitic mass] 30.6 pg 27.0-32.0 [facility] Mean corpuscular hemoglobin concentration (MCHC) determinationOrdered By: Omar Greene on 05-31-2024 MCHC (RBC) [Mass/Vol] 32.3 g/dL 32-36 [facility] Mean platelet volume determi nationOrdered By: Omar Greene on 05-31-2024 Platelet mean volume (Bld) [Entitic vol] 10.3 fL 6.2-12.0 [facility] Monocyte percentageOrdered B y: Omar Greene on 05-31-2024 Monocytes/100 WBC (Bld) 13.1 % High 0-10 [facility] Neutrophil percentageOrdered By: Omar Greene on 05-31-2024 Neutrophils/100 WBC (Bld) 64.4 % 47-70 [facility] Nucleated red blood cell per centageOrdered By: Omar Greene on 05-31-2024 Nucleated RBC/100 WBC (Bld) [Ratio] 0 % 0-5 [facility] Platelet countOrdered By: Spike Greene on 05-31-2024 Platelets (Bld) [#/Vol] 438 10*3/uL 150-450 [facility] Potassium (Unsp spec) [Mass/ Vol]Ordered By: Omar Greene on 05-31-2024 Potassium [Moles/Vol] 3.9 mmol/L 3.3-5.1 [facility] Potassium measurement (mass/ volume)Ordered By: Omar Greene on 05-31-2024 Potassium (Unsp spec) [Mass/Vol] 3.9 mmol/L 3.3-5.1 [facility] RBC Auto (Bld) [#/Vol]Ordere d By: Omar Greene on 05-31-2024 RBC (Bld) [#/Vol] 4.44 10*6/uL 4.2-5.4 [facility] Serum creatinine measurement (mass/volume)Ordered By: Omar Greene on 05-31-2024 Creatinine [Mass/Vol] 0.73 mg/dL 0.70-1.20 [facility] Serum glucose measurement (m ass/volume)Ordered By: Omar Greene on 05-31-2024 Glucose [Mass/Vol] 118 mg/dL High 70-99 [facility] Serum or plasma calcium ollie urement (mass/volume)Ordered By: Omar Greene on 05-31-2024 Calcium [Mass/Vol] 9.6 mg/dL 7.6-11.0 [facility] Serum or plasma urea nitroge n measurement (mass/volume)Ordered By: Omar Greene on 05-31-2024 Urea nitrogen [Mass/Vol] 17 mg/dL 4-19 [facility] Sodium levelOrdered By: Miguelangel Greene on 05-31-2024 Sodium [Moles/Vol] 132 mmol/L Low 133-145 [facility] Troponin T.cardiac High sens itivity method [Mass/Vol]Ordered By: Omar Greene on 05-31-2024 Troponin T High Sensitivity 14 ng/L <14 [facility] Troponin T.cardiac [Mass/vol ume] in Serum or Plasma by High sensitivity methodOrdered By: Omar Greene on 05-31-2024 Troponin T.cardiac High sensitivity method [Mass/Vol] 14 ng/L <14 [facility] White blood cell (WBC) count Ordered By: Omar Greene on 05-31-2024 WBC (Bld) [#/Vol] 5.6 10*3/uL 4.4-11.0 [facility] ALANNAH SCREENING W TOMOon 04-30 ALANNAH SCREENING W [facility]MA * * *Final Report* * * DATE OF EXAM: Apr 30 2024 11:36AM [facility] 0582 - ALANNAH SCREENING W UMA / PROCEDURE REASON: SCREENING * * * * Physician Interpretation * * * * RESULT: [address] [address] [place] [address] #[id number] - ALANNAH SCREENING W UMA HISTORY: 79 year-old patient seen for screening. Patient is asymptomatic in both breasts. The patient has the following personal history of breast cancer: bilateral breast cancer. COMPARISON STUDIES: The present examination has been compared to prior imaging studies dated 07/07/2018 (mammogram), 09/17/2019 (mammogram), 09/23/2020 (mammogram), 09/29/2021 (mammogram) and 03/18/2023 (mammogram). MAMMOGRAM TECHNIQUE: The study was acquired using full field digital technology and interpreted from soft copy. Digital Breast Tomosynthesis (DBT) images were obtained and used to assist in the interpretation of this examination. MAMMOGRAM FINDINGS: The breasts are heterogeneously dense, which may obscure small masses. There are stable post-operative and post-radiation changes in both breasts. There are no significant interval changes. No suspicious masses, calcifications or other abnormalities are seen in either breast. IMPRESSION: There is no mammographic evidence of malignancy. Routine screening mammogram is recommended. Annual mammogram will be due in 1 year. BI-RADS Category 2: Benign RISK: Due to the reported patient's history, the patient's estimated lifetime risk of developing breast cancer cannot be assessed at this time. We encourage all patients to talk with their providers about their risk assessment, further recommendations for managing breast health, and appropriate supplemental screening options if the patient has dense breast tissue. Interpreting Radiologist: Ani Keenan M.D. Electronically signed on: 05/01/2024 Radio Operator Ground: KENDELL Transcribe Date/Time: Apr 30 2024 11:22A Dictated by: ANI KEENAN MD This examination was interpreted and the report reviewed and electronically signed by: ANI KEENAN MD on May 01 2024 12:58PM EST [id number] Normal [facility] Gastroenterology Visit Repor ton 03-26-2024 Gastroenterology Visit Report [facility] Gastroenterology [address] [place] [address] OFFICE VISIT Date of Service: 03/26/24 MR#: [id number] Acct: [id number] Name: CRISELDA STORM Rep #: [id number] : 1945 Provider: TIM Robert Age/Sex: 78/F Location[facility] Status: Signed Intake Vital Signs 03/06/24 08:32 Height 5 ft 4 in Intake Visit Reasons: Follow up to [place] request 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 Pt reports she is feeling good from a GI standpoint and has no complaints. Pt reports a formed BM daily. Denies bloody stools, abdominal pain, and n/v/c/d. [facility] Medical History Neuropathy Hyperlipidemia Vitamin D deficiency Osteoporosis Bilateral cataracts Non-ischemic cardiomyopathy History of bilateral breast cancer Bilateral pleural effusion Atrial flutter Surgical History History of partial mastectomy of left breast History of open reduction and internal fixation (ORIF) procedure Family History Father Myocardial infarction Brother Myocardial infarction Social History Smoking Status: Former smoker how long ago did patient quit smokin years alcohol intake: current alcohol intake frequency: 0-2 drinks per day Alcohol type: wine substance use type: does not use caffeine: No HPI HPI Chief Complaint: abnormal finding on CT Details: CRISELDA STORM, is a 78 F who presents to the office today for f/u. 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 Treatment with vancomycin three times with symptoms reoccurring within days. No current loose stools. Stool 8.19.24; c. dif negative *Zinplava therapy OV 03.26.24 for abnormal finding on CT abd pelvis of thickening in the stomach. Pt underwent CT for monitoring of liver cyst and was incidentally found to have a thickened stomach. She denies abd pain, heartburn, n/v, constipation or diarrhea. When she had c.dif she lost about 20 lbs and has yet to gain any back. She voices that she does not want to have an EGD. ROS Const Constitutional: No fatigue, fever(s) or weight change ENT ENT: No difficulty swallowing Gastro GI: No abdominal pain, belching, bloating, change in bowel habits, change in stool character, coffee ground emesis, constipation, cramping, diarrhea, heartburn, difficulty swallowing, feeling full early, excessive flatus, incontinent of stools, Vomiting blood/hematemesis, Blood in stool, loose stools, Black,tarry stools, nausea/dyspepsia, pain with swallowing, vomiting or other Musc Musculoskeletal: Positive for back pain; No joint pain Skin Skin: No yellowing of the eye or itchy eyes Psych Psychiatric: No anxiety and No depression Endo Endocrine: No fatigue or weight change Aller/Imm Allergy/Immunologic: No itchy eyes Miguel/Lymp Hematologic/Lymphatic : Positive for easy bleeding and easy bruising Exam Const General: cooperative and comfortable Nutritional Appearance: average body habitus and well nourished [facility] Head: normal to inspection Ears: hearing grossly normal bilaterally Nose: external nose normal Face and sinus: normal facial exam Mouth: oral mucosae normal Throat: posterior oropharynx normal Eyes General: appearance normal, both eyes and all related structures Neck Neck: normal visual inspection Chest Chest palpation inspection: normal inspection of the chest Resp Effort Inspection: normal respiratory effort Cardio Palpation: normal PMI Rate: regular rate Rhythm: regular rhythm GI Inspection: normal to inspection Auscultation: normal bowel sounds Percussion: normal to percussion Palpation: no hepatosplenomegaly Skin General: no rashes or lesions noted Neuro General: patient alert Extrem General: normal to inspection Psych Affect: normal affect Assessment and Plan Assessment and Plan (1) Gastric wall thickening: Status: Acute Plan: This is a 78 yo female pt here today by recommendation of her PCP for an abnormal finding on CT abd/pelvis. She underwent CT for monitoring of a hepatic cyst and was incidentally found to have gastric thickening. She denies any GI symptoms. She has had weight loss over the past year which she attributes to her previous bouts of c.dif (more content not included)... Normal [facility] Chest PA and Lateralon 03-23 Chest PA and Lateral [facility] Imaging Services [address] [place] [address] Chest PA and Lateral MR#: [id number] Acct: [id number] Name: CRISELDA STORM Rep #: [id number] : 1945 F 78 From: José Miguel Noland MD PCP: Dr. Rachna Acosta, DO Status: REG CLI Study: Chest PA and Lateral Date of Exam: 03/23/24 Exam# [id number] Ordering Dr: Hazel Denson EXAM: XR Chest, 2 Views CLINICAL INDICATION: TECHNIQUE: Frontal and lateral views of the chest. COMPARISON: No relevant prior studies available. FINDINGS: LUNGS AND PLEURAL SPACES: See below. HEART: Cardiomegaly with pulmonary congestion and edema. Superimposed pneumonia cannot be excluded. MEDIASTINUM: Unremarkable. Normal mediastinal contour. BONES/JOINTS: Unremarkable. No acute fracture. RAD/Chest PA and Lateral IMPRESSION: Cardiomegaly with pulmonary congestion and edema. Superimposed pneumonia cannot be excluded. Reading Location: [facility] CC: Dr. Rachna Acosta DO; TIM Yu Radio Operator Ground: Signed Normal [facility] Echo Completeon 03-19-2024 Echo Complete [facility] Cardiovascular Services [address] [place] [address] Echo Complete 03/19/24 1313 MR#: [id number] Acct: [id number] Name: CRISELDA STORM Rep #: [id number] : 1945 78 From: Marcelo Berry MD Attending Dr: TIM Yu Status: REG CLI Ordering Dr: Hazel Denson Date: 02/20 Location: [facility] Sex: F C Admitted: Reason For Study: CONGESTIVE HEART FAILURE Procedure This was a 2D Doppler, Color Flow transthoracic echocardiogram. Myocardial strain analysis was performed in this exam to aid in the assessment of cardiac function. The study was technically difficult. Exam performed in department. Left Ventricle Normal LV size. The global longitudinal strain = -16.8% (borderline). Stage 3 diastolic dysfunction. The left ventricular ejection fraction is 60 %. Right Ventricle Normal RV size. Normal systolic function. Atria Normal left atrium. Normal right atrium. Tricuspid Valve Normal tricuspid valve. Mild to moderate (1-2+) tricuspid valve insufficiency. Pulmonary artery systolic pressure is 30 mmHg. Aortic Valve Trisinus/trileaflet aortic valve. Mild (1+) aortic valve insufficiency. Pulmonic Valve Normal pulmonic valve. Mild (1+) pulmonic valve insufficiency. Pericardium/Pleural No pericardial effusion. Moderate size left pleural effusion. MMode/2D Measurements Calculations LVIDd: 4.1 cm IVSd: 0.91 cm LVOT diam: 1.9 cm LVIDs: 2.6 cm LVPWd: 1.0 cm LVOT area: 2.8 cm2 RVDd: 3.5 cm FS: 37.0 % LAV(MOD-bp): 64.9 ml LVAd ap4: 14.9 cm2 LVAd ap2: 16.2 cm2 LAV(MOD-bp) Indexed: 41.2 ml/m2 LVLd ap4: 5.7 cm LVLd ap2: 5.8 cm LAV(MOD-sp2): 75.1 ml EDV(MOD-sp4): 33.2 ml EDV(MOD-sp2): 38.2 ml LAV(MOD-sp4): 55.0 ml EDV(sp4-el): 33.1 ml EDV(sp2-el): 38.7 ml LVAs ap4: 9.4 cm2 LVAs ap2: 9.1 cm2 LVLs ap4: 5.3 cm LVLs ap2: 5.1 cm ESV(MOD-sp4): 14.6 ml ESV(MOD-sp2): 14.4 ml ESV(sp4-el): 14.2 ml ESV(sp2-el): 13.7 ml EF(MOD-sp4): 56.0 % EF(MOD-sp2): 62.2 % EF(sp4-el): 57.0 % SV(MOD-sp4): 18.6 ml SV(MOD-sp2): 23.7 ml SV(sp4-el): 18.8 ml SI(MOD-sp4): 11.8 ml/m2 SI(MOD-sp2): 15.1 ml/m2 Ao sinus diam: 3.1 cm LA dimension(2D): 3.9 cm LA A4 area: 19.8 cm2 RA A4 area: 13.5 cm2 TAPSE: 1.3 cm Time Measurements MV dec time: 0.15 sec Doppler Measurements Calculations MV E max asrh: 86.0 cm/sec Lat Peak E' Arsh: 8.9 cm/sec Med Peak E' Arsh: 6.6 cm/sec MV A max arsh: 29.6 cm/sec E/E' lat: 9.7 E/E' med: 13.0 MV E/A: 2.9 Ao V2 max: 109.4 cm/sec AI max arsh: 334.4 cm/sec MV dec slope: 562.6 cm/sec2 Ao max P.8 mmHg AI max P.7 mmHg Ao V2 mean: 70.4 cm/sec Ao mean P.3 mmHg AI dec slope: 189.1 cm/sec2 Ao V2 VTI: 26.3 cm AI P1/2t: 517.8 msec AV (velocity ratio): 0.84 BRADLEY(I,D): 2.3 cm2 BRADLEY(V,D): 2.2 cm2 LV V1 max: 88.2 cm/sec SV(LVOT): 61.5 ml PI end-d arsh: 83.2 cm/sec LV V1 max P.1 mmHg LV V1 mean P.5 mmHg LV V1 mean: 55.7 cm/sec LV V1 VTI: 22.1 cm TR max arsh: 291.9 cm/sec TR max P.1 mmHg ECHO/Echo Complete Interpretation Summary The global longitudinal strain = -16.8% (borderline). Stage 3 diastolic dysfunction. The left ventricular ejection fraction is 60 %. Mild (1+) aortic valve insufficiency. Moderate size left pleural effusion. Ordering Physician: Hazel Denson Referring Physician: Rachna Acosta Performed By: Leonarda Steinberg RDCS 03/19/24 1515 Date Marcelo Berry MD CC: Dr. Rachna Acosta DO; TIM Yu Date Dictated: 03/19/24 1313 Date Transcribed: 03/19/241514 [employer]: Signed Normal [facility] Absolute lymphocyte countOrd ered By: Rachna Francogabbi on 03-17-2024 Lymphocytes Auto (Unsp spec) [#/Vol] 0.81 10*3/uL Low 0.83-4.51 [facility] Absolute neutrophil countOrd ered By: Rachna Acosta on 03-17-2024 Neutrophils (Bld) [#/Vol] 2.5 10*3/uL 2.0-7.7 [facility] Automated lymphocyte count a s percentage of total leukocytesOrdered By: Rachna Salvadorgabbi on 03-17-2024 Lymphocytes/100 WBC Auto (Unsp spec) 20.1 % 19-41 [facility] Basophil percentageOrdered B y: Rachna Francogabbi on 03-17-2024 Basophils/100 WBC (Bld) 1.7 % High 0-1 [facility] C-reactive protein measureme nt by high sensitivity methodOrdered By: Rachna Acosta on 03-17-2024 C-Reactive Protein Extended Range 13.30 mg/L High 0.0-3.0 [facility] Comment on above: C-Reactive Protein ( CRP) provides useful information for thediagnosis, therapy and monitoring of inflammatory processesand associated diseases. For the evaluation of Relative Riskfor Cardiovascular Disease, a High Sensitivity CRP (HSCRP)should be ordered. C-reactive protein measurement by high sensitivity method 13.30 mg/L High 0.0-3.0 [facility] Comment on above: C-Reactive Protein ( CRP) provides useful information for thediagnosis, therapy and monitoring of inflammatory processesand associated diseases. For the evaluation of Relative Riskfor Cardiovascular Disease, a High Sensitivity CRP (HSCRP)should be ordered. CBC W/Diff, Automatedon 02-19 Absolute Lymph 0.81 X10 3/uL Low 0.83-4.51 [facility] Comment on above: Performed By: #### L 100.0100, L504.2610, L101.9900, L501.6710 #### [facility] [address] [place], [address] Absolute Neut 2.5 X10 3/uL Normal 2.0-7.7 [facility] Comment on above: Performed By: #### L 100.0100, L504.2610, L101.9900, L501.6710 #### [facility] [address] [place], [address] Basophils/100 WBC (Bld) 1.7 % High 0-1 [facility] Comment on above: Performed By: #### L 100.0100, L504.2610, L101.9900, L501.6710 #### [facility] [address] [place], [address] Eosinophils/100 WBC (Bld) 3.0 % Normal 0-5 [facility] Comment on above: Performed By: #### L 100.0100, L504.2610, L101.9900, L501.6710 #### [facility] [address] [place], [address] Erythrocyte distribution width (RBC) [Ratio] 14.7 % High 11.6-14.6 [facility] Comment on above: Performed By: #### L 100.0100, L504.2610, L101.9900, L501.6710 #### [facility] [address] [place], [address] Hematocrit (Bld) [Volume fraction] 41.6 % Normal 37-47 [facility] Comment on above: Performed By: #### L 100.0100, L504.2610, L101.9900, L501.6710 #### [facility] [address] [place], [address] Hemoglobin (Bld) [Mass/Vol] 13.6 g/dL Normal 12.0-15.0 [facility] Comment on above: Performed By: #### L 100.0100, L504.2610, L101.9900, L501.6710 #### [facility] [address] [place], [address] IG% 0.200 Normal 0.0-0.9 [facility] Comment on above: Result Comment: IG% - Immature Granulocytes (promyelocytes, myelocytes and metamyelocytes) > 1% indicates that a LEFT SHIFT is Present. Performed By: #### L 100.0100, L504.2610, L101.9900, L501.6710 #### [facility] [address] [place], [address] Lymphocytes/100 WBC (Bld) 20.1 % Normal 19-41 [facility] Comment on above: Performed By: #### L 100.0100, L504.2610, L101.9900, L501.6710 #### [facility] [address] [place], [address] MCH (RBC) [Entitic mass] 30.9 pg Normal 27.0-32.0 [facility] Comment on above: Performed By: #### L 100.0100, L504.2610, L101.9900, L501.6710 #### [facility] [address] [place], [address] MCHC (RBC) [Mass/Vol] 32.7 g/dL Normal 32-36 [facility] Comment on above: Performed By: #### L 100.0100, L504.2610, L101.9900, L501.6710 #### [facility] [address] [place], [address] MCV (RBC) [Entitic vol] 94.5 fL Normal 81-99 [facility] Comment on above: Performed By: #### L 100.0100, L504.2610, L101.9900, L501.6710 #### [facility] [address] [place], [address] Monocytes/100 WBC (Bld) 12.9 % High 0-10 [facility] Comment on above: Performed By: #### L 100.0100, L504.2610, L101.9900, L501.6710 #### [facility] [address] [place], [address] Neutrophils/100 WBC (Bld) 62.1 % Normal 47-70 [facility] Comment on above: Performed By: #### L 100.0100, L504.2610, L101.9900, L501.6710 #### [facility] [address] [place], [address] Nucleated RBC (Bld) [#/Vol] 0 10*3/uL Normal 0-5 [facility] Comment on above: Performed By: #### L 100.0100, L504.2610, L101.9900, L501.6710 #### [facility] [address] [place], [address] Platelet mean volume (Bld) [Entitic vol] 10.2 fL Normal 6.2-12.0 [facility] Comment on above: Performed By: #### L 100.0100, L504.2610, L101.9900, L501.6710 #### [facility] [address] [place], [address] Platelets (Bld) [#/Vol] 284 10*3/uL Normal 150-450 [facility] Comment on above: Performed By: #### L 100.0100, L504.2610, L101.9900, L501.6710 #### [facility] [address] [place], [address] RBC (Bld) [#/Vol] 4.40 10*6/uL Normal 4.2-5.4 [facility] Comment on above: Performed By: #### L 100.0100, L504.2610, L101.9900, L501.6710 #### [facility] [address] [place], [address] RDW SD 51.3 fl High 35.1-43.9 [facility] Comment on above: Performed By: #### L 100.0100, L504.2610, L101.9900, L501.6710 #### [facility] [address] [place], [address] WBC (Bld) [#/Vol] 4.0 10*3/uL Low 4.4-11.0 [facility] Comment on above: Performed By: #### L 100.0100, L504.2610, L101.9900, L501.6710 #### [facility] [address] [place], [address] CRPon 03-17-2024 C-REACTIVE PROT 13.30 mg/L High 0.0-3.0 [facility] Comment on above: Order Comment: 1 Result Comment: C-Re active Protein (CRP) provides useful information for the diagnosis, therapy and monitoring of inflammatory processes and associated diseases. For the evaluation of Relative Risk for Cardiovascular Disease, a High Sensitivity CRP (HSCRP) should be ordered. Performed By: #### L 100.0100, L504.2610, L101.9900, L501.6710 ####[facility] [address] [place], [address] Eosinophil percentageOrdered By: Rachna Acosta on 03-17-2024 Eosinophils/100 WBC (Bld) 3.0 % 0-5 [facility] Erythrocyte Sed Rateon 03-17 SED RATE 9 mm/hr Normal 0-30 [facility] Comment on above: Performed By: #### L 100.0100, L504.2610, L101.9900, L501.6710 #### [facility] [address] [place], [address] Erythrocyte distribution wid th (RBC) [Ratio]Ordered By: Rachna Acosta on 03-17-2024 Erythrocyte distribution width (RBC) [Entitic vol] 51.3 fL High 35.1-43.9 [facility] Erythrocyte distribution wid th ratioOrdered By: Rachna Acosta on 03-17-2024 Erythrocyte distribution width (RBC) [Ratio] 14.7 % High 11.6-14.6 [facility] Erythrocyte distribution wid th standard deviationOrdered By: Rachna Acosta on 03-17-2024 Erythrocyte distribution width (RBC) [Ratio] 51.3 fl High 35.1-43.9 [facility] Erythrocyte sedimentation ra teOrdered By: Rachna Acosta on 03-17-2024 ESR (Bld) [Velocity] 9 mm/h 0-30 [facility] Hematocrit Auto (Bld) [Volum e fraction]Ordered By: Rachna Acosta on 03-17-2024 Hematocrit (Bld) [Volume fraction] 41.6 % 37-47 [facility] Hemoglobin measurementOrdere d By: Rachna Acosta on 03-17-2024 Hemoglobin (Bld) [Mass/Vol] 13.6 g/dL 12.0-15.0 [facility] Immature granulocytes/100 WB C Auto (Bld)Ordered By: Rachna Acosta on 03-17-2024 Immature granulocytes/100 WBC (Bld) 0.200 % 0.0-0.9 [facility] Comment on above: IG% - Immature Granu locytes (promyelocytes, myelocytes and metamyelocytes) > 1% indicates that a LEFT SHIFT is Present. LDHon 03-17-2024 LDH 189 U/L Normal 84-246 [facility] Comment on above: Order Comment: 1 Performed By: #### L 100.0100, L504.2610, L101.9900, L501.6710 ####[facility] [address] [place], [address] Lactate dehydrogenase (LDH) measurementOrdered By: Rachna Acosta on 03-17-2024 LDH [Catalytic activity/Vol] 189 U/L 84-246 [facility] Liveron 03-17-2024 Liver [facility] Imaging Services [address] [place], [place] [id number] Liver MR#: [id number] Acct: [id number] Name: CRISELDA STORM Rep #: [id number] : 1945 F 78 From: Juve Haque PCP: Dr. Rachna Acosta DO Status: REG CLI Study: Liver Date of Exam: 03/17/24 Exam# [id number] Ordering Dr: Rachna Acosta DO PROCEDURE: LIVER REASON FOR EXAM: Lesion seen on CT. COMPARISON: CT examination of 03/09/2024 FINDINGS: In the area of CT concern of the liver in the right hepatic lobe near the dome of the diaphragm is seen a cyst measuring 16 x 16 x 13 mm. No internal blood flow is seen upon color Doppler evaluation. The liver is of normal size, measured at 14.3 cm in length. Normal hepatic echogenicity is otherwise seen. Hepatopetal flow of the portal vein is noted. No ascites is seen in visualized areas. The gallbladder appears within normal limits, without evidence of stones, wall thickening, or pericholecystic fluid collection. No sonographic Gómez's sign was elicited. The pancreas is seen in a limited fashion, but without apparent abnormality. The right kidney is unremarkable in appearance, measured at 9.4 x 5.1 x 3.4 cm. The cortex is measured at 11 mm in thickness. US/Liver IMPRESSION: 1. No evidence of acute disease. 2. Right hepatic small cyst. Reading Location: [address] CC: Dr. Rachna Acosta DO [employer]: Signed Normal [facility] Lymphocytes Auto (Unsp spec) [#/Vol]Ordered By: Rachna Acosta on 03-17-2024 Lymphocytes (Bld) [#/Vol] 0.81 10*3/uL Low 0.83-4.51 [facility] Lymphocytes/100 WBC Auto (Un sp spec)Ordered By: Rachna Acosta on 03-17-2024 Lymphocytes/100 WBC (Bld) 20.1 % 19-41 [facility] MCV (mean corpuscular volume ) determinationOrdered By: Rachna Acosta on 03-17-2024 MCV (RBC) [Entitic vol] 94.5 fL 81-99 [facility] Mean corpuscular hemoglobin (MCH) determinationOrdered By: Rachna Acosta on 03-17-2024 MCH (RBC) [Entitic mass] 30.9 pg 27.0-32.0 [facility] Mean corpuscular hemoglobin concentration (MCHC) determinationOrdered By: Rachna Acosta on 03-17-2024 MCHC (RBC) [Mass/Vol] 32.7 g/dL 32-36 [facility] Mean platelet volume determi nationOrdered By: Rachna Acosta on 03-17-2024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 artifact NOTE TO PROVIDERS: CARD Flowsheets contain detailed device programming and testing data. Paceart/Interrogation PDF can be found under CARDIAC DATA AND REPORT, Scanned Documents section. [facility] ARRHYTHMIA TRANS TELE MEASUR [place] 08-07-2023 Measure GA Interval 130 [facility] MEASURE QRS Interval [facility] MEASURE QT Interval 493 [facility] MEASURE RR INTERVAL MAX 47.11 [facility] Symptoms routine [facility] Review of transmission demonstrates sinus bradycardia NOTE TO PROVIDERS: CARD Flowsheets contain detailed device programming and testing data. Paceart/Interrogation PDF can be found under CARDIAC DATA AND REPORT, Scanned Documents section. PACEART 08/07/2023 Formattin g of this note might be different from the original. Review of transmission demonstrates sinus bradycardia NOTE TO PROVIDERS: CARD Flowsheets contain detailed device programming and testing data. Paceart/Interrogation PDF can be found under CARDIAC DATA AND REPORT, Scanned Documents section. [facility] ARRHYTHMIA TRANS TELE MEASUR [place] 08-02-2023 Arrhythmia-Activity taken multiple times with cell [facility] MEASURE QRS Interval [facility] MEASURE QT Interval 436 [facility] MEASURE RR INTERVAL MAX 57.93 [facility] Symptoms routine [facility] Review of transmission demonstrates possible sinus bradycardia with baseline artifact NOTE TO PROVIDERS: CARD Flowsheets contain detailed device programming and testing data. Paceart/Interrogation PDF can be found under CARDIAC DATA AND REPORT, Scanned Documents section. PACEART 08/02/2023 Formattin g of this note might be different from the original. Review of transmission demonstrates possible sinus bradycardia with baseline artifact NOTE TO PROVIDERS: CARD Flowsheets contain detailed device programming and testing data. Paceart/Interrogation PDF can be found under CARDIAC DATA AND REPORT, Scanned Documents section. [facility] ARRHYTHMIA TRANS TELE MEASUR [place] 07-29-2023 Measure GA Interval [facility] MEASURE QRS Interval 80 [facility] MEASURE QT Interval 436 [facility] MEASURE RR INTERVAL MAX 61.72 [facility] Symptoms routine [facility] Review of transmission demonstrates sinus rhythm NOTE TO PROVIDERS: CARD Flowsheets contain detailed device programming and testing data. Paceart/Interrogation PDF can be found under CARDIAC DATA AND REPORT, Scanned Documents section. PACEART 07/29/2023 Formattin g of this note might be different from the original. Review of transmission demonstrates sinus rhythm NOTE TO PROVIDERS: CARD Flowsheets contain detailed device programming and testing data. Paceart/Interrogation PDF can be found under CARDIAC DATA AND REPORT, Scanned Documents section. [facility] ARRHYTHMIA TRANS TELE MEASUR [place] 07-17-2023 Measure GA Interval 106 [facility] MEASURE QRS Interval [facility] MEASURE QT Interval 474 [facility] MEASURE RR INTERVAL MAX 58.12 [facility] Symptoms Routine [facility] Review of transmission demonstrates sinus rhythm NOTE TO PROVIDERS: CARD Flowsheets contain detailed device programming and testing data. Paceart/Interrogation PDF can be found under CARDIAC DATA AND REPORT, Scanned Documents section. PACEART 07/17/2023 Formattin g of this note might be different from the original. Review of transmission demonstrates sinus rhythm NOTE TO PROVIDERS: CARD Flowsheets contain detailed device programming and testing data. Paceart/Interrogation PDF can be found under CARDIAC DATA AND REPORT, Scanned Documents section. [facility] ARRHYTHMIA TRANS TELE MEASUR [place] 07-10-2023 Measure GA Interval 137 [facility] MEASURE QRS Interval 97 [facility] MEASURE QT Interval 464 [facility] MEASURE RR INTERVAL MAX 58.31 [facility] Symptoms Baseline [facility] Review of transmission demonstrates sinus bradycardia NOTE TO PROVIDERS: CARD Flowsheets contain detailed device programming and testing data. Paceart/Interrogation PDF can be found under CARDIAC DATA AND REPORT, Scanned Documents section. PACEART 07/10/2023 Formattin g of this note might be different from the original. Review of transmission demonstrates sinus bradycardia NOTE TO PROVIDERS: CARD Flowsheets contain detailed device programming and testing data. Paceart/Interrogation PDF can be found under CARDIAC DATA AND REPORT, Scanned Documents section. [facility] 07-04-2023 CNPN Telephone (PODCCP) CRISELDA STORM ([id number]) 1945 F Date Time Provider Department 07/04/23 ANI VELASQUEZ PODCCP During your visit today, we recorded the following information about you: Ani Velasquez RN 07/04/2023 10:04 AM Signed Pt contacted for discharge follow up from recent hospital stay. Pt verified name and and informed that call was on a recorded line. Pt denies any questions or concerns since discharge yesterday. Closing comments given including reminder of 24 hour nurse resource line in discharge paperwork. Allergies As of Date: 07/04/2023 (No Known Allergies) Date Reviewed: 07/03/2023 Reviewed by: Makenzie Borden RN - Fully Assessed Reason for Visit: Follow Up Phone Call [[phone]] Cmt: Relate care discharge follow [id number] clear Prescriptions as of 07/04/2023 - furosemide (LASIX) 20 mg tablet Take 1 tablet by mouth once daily. - amiodarone (PACERONE) 200 mg tablet Take 1 tablet by mouth once daily. - ENTRESTO 24-26 mg tablet Take 1 tablet by mouth two times a day. - FARXIGA 10 mg tablet Take 10 mg by mouth daily with breakfast. - apixaban (ELIQUIS) 5 mg tab(s) Take 5 mg by mouth two times a day. - metoprolol tartrate, short acting, (LOPRESSOR) 50 mg tablet Take 50 mg by mouth two times a day. Problem List As Of Date 07/04/2023 Noted Resolved Generalized anxiety disorder [F41.1] 05/18/2015 Breast cancer (HCC) [C50.919] 04/09/2023 Hyperlipidemia [E78.5] 12/11/2021 Compression fracture of T12 vertebra with routi*04/09/2023 Age-related osteoporosis without current pathol*05/18/2015 Dilated cardiomyopathy (HCC) [I42.0] 04/09/2023 Encounter Status:Closed by ANI VELASQUEZ on 07/04/23 Normal [facility] ANES POSTPROC EVALon 024 ANES POSTPROC EVAL HNO ID: [id number] Author: KIP VALENCIA MD Service: ? Author Type: Anesthesiologist Type: Anesthesia Postprocedure Evaluation Filed: 07/03/2023 16:57 Note Text: POST ANESTHESIA EVALUATION NOTE : 1945 Procedure Summary Date: 07/03/23 Room / Location: [address] EP LAB Anesthesia Start: 826 Anesthesia Stop: 1137 Procedure: COMPLETE EPS W/PVI ABL W/WO 3D MAP ICE (Bilateral: Groin) Diagnosis: Paroxysmal atrial fibrillation (HCC) (Paroxysmal atrial fibrillation (HCC) [I48.0]) Surgeons: Bear Rodarte MD Responsible Provider: Kip Valencia MD Anesthesia Type: general ASA Status: 4 Anesthesia Type: general Airway Type: ETT Last Vitals Vitals Value Taken Time BP 136/68 07/03/23 1645 Temp 36 ?C (96.8 ?F) 07/03/23 1140 Pulse 61 07/03/23 1655 Resp 17 07/03/23 1655 SpO2 98 % 07/03/23 1655 Vitals shown include unfiled device data. Post Anesthesia Patient Status Patient Evaluation: PACU. PACU/ICU Patient Condition: stable. Neurological Status: aware and responsive. Pulmonary Status: breathing comfortably on supplemental oxygen Airway Control: returned to baseline unsupported. Cardiovascular Status: stable. Pain Management: clinically adequate Postoperative Hydration: acceptable. Intraoperative Events: no significant anesthesia events Post Operative Nausea/Vomiting Status: no significant post operative nausea or vomiting Recommendation: continue current plan of care. Anesthesia Observations No Documentation SIGNATURE: Kip Valencia MD PATIENT NAME: Criselda Storm DATE: July 03, 2023 TIME: 4:57 PM CSN: [id number] Normal [facility] ANES PRE-OPon 07-03-2023 ANES PRE-OP HNO ID: [id number] Author: KIP VALENCIA MD Service: ? Author Type: Anesthesiologist Type: Anesthesia Preprocedure Evaluation Filed: 07/03/2023 07:19 Note Text: ANESTHESIOLOGY DAY OF SURGERY NOTE : 1945 Procedure Information Date/Time: 07/03/23 0700 Procedure: COMPLETE EPS W/PVI ABL W/WO 3D MAP ICE Location: [facility] / EP LAB Surgeons: Bear Rodarte MD Estimated body mass index is 21.8 kg/m? as calculated from the following: Height as of 06/26/23: 161.3 cm (5' 3.5). Weight as of 06/26/23: 56.7 kg (125 lb). Most recent hematocrit and potassium results: Hematocrit 41.9 05/29/2023 Potassium 4.4 05/29/2023 Relevant Problems No relevant active problems I - PHYSICAL EVALUATION AIRWAY Patient intubated: No. Tracheostomy tube not present Mallampati: I. TM distance: >3 FB. Neck ROM: full ROM without neurological symptoms. Mouth opening: adequate. Short neck: no. Thick neck: no Godwin present: no Lip Bite Test: I Microretrognathia/Shen ronagthia/Recessed Chin: No Additional exam findings: no II - ANESTHESIA PLAN ASA Score: 4 Anesthetic Plan: general Airway type: ETT The patient is not a current smoker. NPO Status: adequate Beta Nba Administration of chronic beta nba medication not planned. Monitoring Plan Monitoring plan: standard ASA. Post Procedure Analgesic Plan Postoperative analgesic plan: parenteral or oral opioids. Informed Consent Anesthetic risks, benefits, alternatives, personnel and consent discussed: yes. Patient / Responsible Democrat agrees to proceed: yes Patient / Surrogate agrees to blood products: blood products not planned No vitals data found for the desired time range. No current facility-administered medications on file as of 07/03/2023. Outpatient Medications as of 07/03/2023 Medication Sig FARXIGA 10 mg tablet Take 10 mg by mouth daily with breakfast. apixaban (ELIQUIS) 5 mg tab(s) Take 5 mg by mouth two times a day. metoprolol tartrate, short acting, (LOPRESSOR) 50 mg tablet Take 50 mg by mouth two times a day. I have interviewed and examined the patient. I have reviewed the medical record and/or the pre-anesthesia evaluation, pertinent labs, and test results. This contains updated information obtained within 48 hours of Surgery/Procedure. SIGNATURE: Kip Valencia MD PATIENT NAME: Criselda Storm DATE: July 03, 2023 TIME: 7:18 AM CSN: [id number] Normal [facility] Basic metabolic 2000 panelon 07-03-2023 Anion gap [Moles/Vol] 11 mmol/L Normal 9-18 [facility] Comment on above: Order Comment: Isabel zayas Type: BLOOD SPECIMEN Ordering Facility: [facility] Address: [address] [place] [address] Performed By: #### 5 8410-2 #### [facility] CLIA [id number] [address] [place] [address] [place] Calcium [Mass/Vol] 9.0 mg/dL Normal 8.5-10.2 [facility] Comment on above: Order Comment: Isabel zayas Type: BLOOD SPECIMEN Ordering Facility: [facility] Address: [address] [place] [address] Performed By: #### 5 8410-2 #### [facility] CLIA [id number] [address] [place] [address] [place] Chloride [Moles/Vol] 97 mmol/L Normal 97-105 [facility] Comment on above: Order Comment: Jazzyi men Type: BLOOD SPECIMEN Ordering Facility: [facility] Address: [address] [place] [address] Performed By: #### 5 8410-2 #### [facility] CLIA [id number] [address] [place] [address] [place] CO2 [Moles/Vol] 28 mmol/L Normal 22-30 [facility] Comment on above: Order Comment: Speci men Type: BLOOD SPECIMEN Ordering Facility: [facility] Address: [address] [place] [address] Performed By: #### 5 8410-2 #### [facility] CLIA [id number] [address] [place] [address] [place] Creatinine [Mass/Vol] 0.77 mg/dL Normal 0.58-0.96 [facility] Comment on above: Order Comment: Speci men Type: BLOOD SPECIMEN Ordering Facility: [facility] Address: [address] [place] [address] Performed By: #### 5 8410-2 #### [facility] CLIA [id number] [address] [place] [address] [place] Creatinine and Glomerular filtration rate.predicted panel (S/P/Bld) 80 mL/min/1.73m??? Normal >=60 [facility] Comment on above: Order Comment: Speci men Type: BLOOD SPECIMEN Ordering Facility: [facility] Address: [address] [place] [address] Result Comment: Valentine mated Glomerular Filtration Rate (eGFR) is calculated using the 2020 CKD-EPI creatinine equation. This equation utilizes serum creatinine, sex, and age as parameters. The creatinine assay has traceable calibration to isotope dilution-mass spectrometry. Refer to KDIGO guidelines for clinical interpretation. In patients with unstable renal function, e.g. those with acute kidney injury, the eGFR may not accurately reflect actual GFR. Performed By: #### 5 8410-2 #### [facility] CLIA [id number] [address] [place] [address] [place] Glucose [Mass/Vol] 96 mg/dL Normal 74-99 [facility] Comment on above: Order Comment: Speci men Type: BLOOD SPECIMEN Ordering Facility: [facility] Address: [address] [place] [address] Result Comment: The [place] Diabetes Association (ADA) provides guidance for cutoff values for fasting glucose and random glucose. The ADA defines fasting as no caloric intake for at least 8 hours. Fasting plasma glucose results between 100 to 125 mg/dL indicate increased risk for diabetes (prediabetes). Fasting plasma glucose results greater than or equal to 126 mg/dL meet the criteria for diagnosis of diabetes. In the absence of unequivocal hyperglycemia, results should be confirmed by repeat testing. In a patient with classic symptoms of hyperglycemia or hyperglycemic crisis, random plasma glucose results greater than or equal to 200 mg/dL meet the criteria for diagnosis of diabetes. Reference: Standards of Medical Care in Diabetes 2016, [place] Diabetes Association. Diabetes Care. 2016.39(Suppl 1). Performed By: #### 5 8410-2 #### [facility] CLIA [id number] [address] [place] [address] [place] Potassium [Moles/Vol] 4.0 mmol/L Normal 3.7-5.1 [facility] Comment on above: Order Comment: Speci men Type: BLOOD SPECIMEN Ordering Facility: [facility] Address: [address] [place] [address] Performed By: #### 5 8410-2 #### [facility] CLIA [id number] [address] [place] [address] [place] Sodium [Moles/Vol] 136 mmol/L Normal 136-144 [facility] Comment on above: Order Comment: Speci men Type: BLOOD SPECIMEN Ordering Facility: [facility] Address: [address] [place] [address] Performed By: #### 5 8410-2 #### [facility] CLIA [id number] [address] [place] [address] [place] Urea nitrogen [Mass/Vol] 14 mg/dL Normal 7-21 [facility] Comment on above: Order Comment: Speci men Type: BLOOD SPECIMEN Ordering Facility: [facility] Address: [address] [place] [address] Performed By: #### 5 8410-2 #### [facility] CLIA [id number] [address] [place] [address] [place] CBC panel Auto (Bld)on 07-02 Erythrocyte distribution width (RBC) [Ratio] 14.4 % Normal 11.5-15.0 [facility] Comment on above: Order Comment: Speci men Type: BLOOD SPECIMEN Ordering Facility: [facility] Address: [address] [place] [address] Performed By: #### 5 8410-2 #### [facility] CLIA [id number] [address] [place] [address] [place] Hematocrit (Bld) [Volume fraction] 42.4 % Normal 36.0-46.0 [facility] Comment on above: Order Comment: Speci men Type: BLOOD SPECIMEN Ordering Facility: [facility] Address: [address] [place] [address] Performed By: #### 5 8410-2 #### [facility] CLIA [id number] [address] [place] [address] [place] Hemoglobin (Bld) [Mass/Vol] 13.6 g/dL Normal 11.5-15.5 [facility] Comment on above: Order Comment: Speci men Type: BLOOD SPECIMEN Ordering Facility: [facility] Address: [address] [place] [address] Performed By: #### 5 8410-2 #### [facility] CLIA [id number] [address] [place] [address] [place] MCH (RBC) [Entitic mass] 31.6 pg Normal 26.0-34.0 [facility] Comment on above: Order Comment: Speci men Type: BLOOD SPECIMEN Ordering Facility: [facility] Address: [address] [place] [address] Performed By: #### 5 8410-2 #### [facility] CLIA [id number] [address] [place] [address] [place] MCHC (RBC) [Mass/Vol] 32.1 g/dL Normal 30.5-36.0 [facility] Comment on above: Order Comment: Speci men Type: BLOOD SPECIMEN Ordering Facility: [facility] Address: [address] [place] [address] Performed By: #### 5 8410-2 #### [facility] CLIA [id number] [address] [place] [address] [place] MCV (RBC) [Entitic vol] 98.6 fL Normal 80.0-100.0 [facility] Comment on above: Order Comment: Speci men Type: BLOOD SPECIMEN Ordering Facility: [facility] Address: [address] [place] [address] Performed By: #### 5 8410-2 #### [facility] CLIA [id number] [address] [place] [address] [place] Nucleated RBC (Bld) [#/Vol] 0.03 10*3/uL High <0.01 [facility] Comment on above: Order Comment: Speci men Type: BLOOD SPECIMEN Ordering Facility: [facility] Address: [address] [place] [address] Performed By: #### 5 8410-2 #### [facility] CLIA [id number] [address] [place] [address] [place] Platelet mean volume (Bld) [Entitic vol] 11.2 fL Normal 9.0-12.7 [facility] Comment on above: Order Comment: Speci men Type: BLOOD SPECIMEN Ordering Facility: [facility] Address: [address] [place] [address] Performed By: #### 5 8410-2 #### [facility] CLIA [id number] [address] [place] [address] [place] Platelets (Bld) [#/Vol] 333 10*3/uL Normal 150-400 [facility] Comment on above: Order Comment: Speci men Type: BLOOD SPECIMEN Ordering Facility: [facility] Address: [address] [place] [address] Performed By: #### 5 8410-2 #### [facility] CLIA [id number] [address] [place] [address] [place] RBC (Bld) [#/Vol] 4.30 10*6/uL Normal 3.90-5.20 [facility] Comment on above: Order Comment: Speci men Type: BLOOD SPECIMEN Ordering Facility: [facility] Address: [address] [place] [address] Performed By: #### 5 8410-2 #### [facility] CLIA [id number] [address] [place] [address] [place] WBC (Bld) [#/Vol] 4.54 10*3/uL Normal 3.70-11.00 [facility] Comment on above: Order Comment: Speci men Type: BLOOD SPECIMEN Ordering Facility: [facility] Address: [address] [place] [address] Performed By: #### 5 8410-2 #### [facility] CLIA [id number] [address] [place] [address] [place] ALI81ox 07-03-2023 ECG01 Ventricular Rate : 5 8 BPM Atrial Rate : 58 BPM P-R Interval : 190 ms QRS Duration : 96 ms Q-T Interval : 526 ms QTC Calculation(Bazett) : 516 ms Calculated P [place] : 69 degrees Calculated R [place] : 26 degrees Calculated T [place] : 62 degrees SINUS BRADYCARDIA LOW VOLTAGE QRS, CONSIDER PULMONARY DISEASE, PERICARDIAL EFFUSION, OR NORMAL VARIANT ST & ANTEROLATERAL T WAVE ABNORMALITY PROLONGED QT INTERVAL OR TU FUSION, CONSIDER HYPOKALEMIA ABNORMAL ECG Confirmed by CINTHIA SAINI MD ([id number]) on 07/23/2023 1:56:18 PM NAME : CRISELDA STORM PID : [id number] : 1945 Gender : Female Race : ORD : Procedure Date : Jul 03 2023 11:39:02 Edit Date : Jul 23 2023 13:56:21 Diagnosis: SINUS BRADYCARDIA LOW VOLTAGE QRS, CONSIDER PULMONARY DISEASE, PERICARDIAL EFFUSION, OR NORMAL VARIANT ST & ANTEROLATERAL T WAVE ABNORMALITY PROLONGED QT INTERVAL OR TU FUSION, CONSIDER HYPOKALEMIA ABNORMAL ECG Confirmed by CINTHIA SAINI MD ([id number]) on 07/23/2023 1:56:18 PM Test Reason : Location : 340 : [id number] Overread By : CINTHIA SAINI MD Edited By : CINTHIA SAINI MD Referred By : , Acquired by : [id number], Normal [facility] CNOVon 06-26-2023 CNOV Office Visit (CARDMN ) CRISELDA STORM ([id number]) 1945 F Date Time Provider Department 06/26/23 3:00 PM TISHA ARAUJO CARDMN During your visit today, we recorded the following information about you: Pulse Blood pressure Weight Height 60/minute 130/68 56.7 kg 1.613 m Tisha Araujo, AGENTS' RECORDS CLERK.VICE PRESIDENT LENDING 06/26/2023 4:47 PM Signed [facility] Department of Cardiovascular Medicine SECTION OF CARDIAC PACING and ELECTROPHYSIOLOGY OUTPATIENT VISIT DATE June 26, 2023 OUTPATIENT VISIT TYPE ESTABLISHED PRIMARY CARE PHYSICIAN: Rachna Acosta [address] [place] [address] Audio Operator: Dr. Melchor REFERRING PHYSICIAN: Self CHIEF COMPLAINT: I am nervous HISTORY OF PRESENT ILLNESS: Ms. Storm is a 78 year old female who presents today for follow-up visit for atrial arrhythmias. She is an established patient of Dr. Rodarte and was last seen in the office April 09, 2023 as a new patient. At the last visit, an echo was ordered to reassess her ejection fraction and rhythm management was discussed. It was decided she would remain on amiodarone with ablation if her EF normalized. 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 After her office visit in March, she had an echo at [facility] which revealed EF had normalized to 58% with normal LV and RV systolic function. She was scheduled for ablation which is July 03, 2023. She had a few DCC in the past resulting to recurrent Afib within a week even on amiodarone. However, she self converted on amiodarone after a failed DCC 02/2023. She is not aware of episodes of Afib, but overall, she notices more energy and feels better than in the Fall when she was in AF. She does admit to fatigue. Her daughter notices heart rates in the 40-50s at times. She denies chest pain, orthopnea, cough, edema, palpitations, PND, lightheadedness or syncope. She admits to BRAMBILA. PAST CARDIAC HISTORY: See above PAST MEDICAL HISTORY Diagnosis Date A-fib (HCC) Atrial fibrillation (HCC) Atrial flutter (HCC) Carcinoma in situ of breast Compression fracture of lumbar vertebra Encounter for routine adult health examination 08/12/2014 Malignant neoplasm of upper-inner quadrant of left female breast 06/09/2014 left breast, stage 1 triple negative Pleural effusion Primary cardiomyopathy (HCC) Nonischemic PAST SURGICAL HISTORY Procedure Laterality Date BREAST LUMPECTOMY HX CATARACT EXTRACTION HX Right 2013 INTRAOP SENTINEL LYMPH NODE ID W/DYE INJECTION PAST SURGICAL HISTORY OF Left 2011 conor in left leg from fracture TONSILLECTOMY HX SOCIAL HISTORY Social History Tobacco Use Smoking status: Former Years: 40 Types: Cigarettes Start date: 1976 Quit date: 2017 Years since quittin.3 Smokeless tobacco: Never Tobacco comments: 3 cigarettes/day Vaping Use Vaping Use: Never used Substance Use Topics Alcohol use: Yes Alcohol/week: 10.0 standard drinks of alcohol Types: 10 Glasses of wine per week Drug use: No FAMILY HISTORY Problem Relation Age of Onset Cancer Mother Stomach, age 40's Heart Father [place] No Known Problems Sister Heart Brother [place] other (no other known family hx of breast cancer) Other ALLERGIES: ALLERGIES No Known Allergies MEDICATIONS: amiodarone (PACERONE) 200 mg tablet Take 1 tablet by mouth once daily. apixaban (ELIQUIS) 5 mg tab(s) Take 5 mg by mouth two times a day. furosemide (LASIX) 20 mg tablet Take 1 tablet by mouth once daily. ENTRESTO 24-26 mg tablet Take 1 tablet by mouth two times a day. FARXIGA 10 mg tablet Take 10 mg by mouth daily with breakfast. metoprolol tartrate, short acting, (LOPRESSOR) 50 mg tablet Take 50 mg by mouth two times a day. REVIEW OF SYSTEMS: General, constitutional: Weight loss or gain- No, Fever or chills-No, Weakness-No, Trouble sleeping-No. Head, Eyes, Ears, Mouth: Headache, head injury-No, Glasses or contact lenses-No, Pain-No, Impaired vision-No, Decreased hearing-No, Ringing in ears-No, Nose bleeds-No, Dental difficulties-No, Bleeding gums-No, Dentures-No. Neck: Swelling-No, Pain-No, Stiffness-No. Respiratory: Cough-No, Spitting up blood-No, Shortness of breath-Yes, Wheezing or asthma-Yes. Musculoskeletal: Muscle or joint pain or stiffness-No, Joint swelling-No. Gastrointestinal: Difficulty swallowing-No, Heartburn-No, Change in bowel habits-No, Blood in stool, Dark black stools-No. Neurological/Psychiat jose alfredo: Weakness, paralysis-No, Numbness-No, Tingling-No, Tremor-No, Nervousness or anxiety-No, Depressed mood-No, Memory loss-No. Skin: Rash-No, Itching-No. Hematological (more content not included)... Normal [facility] CONFIRM BLOOD TYPEon 024 ABO A Normal [facility] Comment on above: Order Comment: Speci men Type: BLOOD SPECIMEN Ordering Facility: [facility] Address: [address] [place] [address] Performed By: #### 5 8410-2 #### [facility] CLIA [id number] [address] [place], [place] [address] [address] [place] Rh Nom (Bld) Positive Normal [facility] Comment on above: Order Comment: Speci men Type: BLOOD SPECIMEN Ordering Facility: [facility] Address: [address] [place] [address] Performed By: #### 5 8410-2 #### [facility] CLIA [id number] [address] [place] [address] [place] PULMONARY VEIN W IVCONon 06-26-2023 CT PULMONARY VEIN W IVCON * * *Final Report* * * DATE OF EXAM: Jun 26 2023 3:09PM JQC 0464 - CT PULMONARY VEIN W IVCON / PROCEDURE REASON: Atrial fibrillation, persistent (HCC) * * * * Physician Interpretation * * * * Cardiac CTA of the Pulmonary Veins Direct Image Comparison: CTA abdomen 12/12/2014 and CTA chest 12/01/2014 HISTORY: 78 years old Female patient with chronic atrial fibrillation. The patient is evaluated for further treatment options, including PVI. There is request to define pulmonary vein anatomy. TECHNIQUE: SCANNER: Siemens Somatom Force Dual source [id number] scanner PROTOCOL: Sequential imaging of the heart with prospective triggering in systolic phase and 1.5 mm slice reconstruction was performed following the intravenous administration of contrast material. Additional delayed imaging covering the ADA was performed The scan range extended from vaishnavi to the base of the heart CT Dose-Length Product (DLP): 81 mGy*cm CT Dose Reduction Employed: Automated exposure control(AEC) and iterative recon Radiation Shielding Employed: Yes CONTRAST: IV administration of 75 ml Omnipaque 350 Scan acquisition was uncomplicated. Macro Version: [id number]_5 For optimization of anatomic evaluation, advanced 3-D off-line postprocessing was performed on a dedicated workstation by the interpreting physician. Additional lung CAD. Almonte images reconstructed, saved, and available in [employer] 'Get Images'. STUDY LIMITATIONS: None. RESULT: LINES, TUBES and DEVICES: None limited CHEST: visualized Chest wall anatomy: Calcification and metallic clips in the right breast and clips left breast tissue, c/w surgical history. Clinical correlation is recommended visualized LUNGS: stable mall left-sided pleural effusion with adjacent atelectasis. Scattered areas of fibrotic changes and atelectasis in the upper lobes. visualized MEDIASTINUM: small mediastinal lymph nodes, which are not pathologic by size criteria. PERICARDIUM: unremarkable CENTRAL PULMONARY ARTERY: incompletely visualized CARDIAC CHAMBERS: Chamber size may be underestimated in single-phase systolic acquisition. LEFT VENTRICLE: normal size. RIGHT VENTRICLE: normal size Left atrium: dilated.LA area: 27 cm2 -small linear structure at the interatrial septum, most consistent with the foramen ovale or a left atrial septal pouch. ADA: inhomogeneous filling arterial phase images, resolved in delayed phase images, consistent with slow flow. Right atrium: dilated CENTRAL VENOUS and PULMONARY VENOUS RETURN: normal. Coronary Sinus: normal size MITRAL VALVE: assessment is limited in the current study - no leaflet calcification. No annular calcification TRICUSPID and PULMONIC VALVE: appear unremarkable. PULMONARY VEINS: Major pulmonary veins are widely patent without evidence of pulmonary vein stenosis. Left sided veins drain separately into the LA. Right middle vein has a common ostium with the right superior vein RSPV (right superior): Normal; no luminal stenosis. No wall changes. RIPV (right inferior): Normal; no luminal stenosis. No wall changes. RMPV (right middle): Normal; no luminal stenosis. No wall changes. LSPV (left superior): Normal; no luminal stenosis. No wall changes. LIPV (left inferior): Normal; no luminal stenosis. No wall changes. CORONARY ANATOMY: normal origin of the coronary arteries. Calcified atherosclerotic changes of the coronary arteries, precluding precise assessment with CT. AORTIC VALVE: appears trileaflet. No leaflet calcification. visualized AORTA: Pathology: No aortic pathology of the limited visualized segment of the aorta. Intervention: None Complications: n/a Aortic Size: Normal size visualized thoracic aorta. STJ: maintained Minimal calcification Wall Changes: No wall calcification ascending aorta beyond the STJ. Mild partially calcified wall changes descending thoracic aorta. AORTIC DIMENSIONS: AORTIC ROOT: 3.5 cm measured [id number] mid ASCENDING THORACIC AORTA: 3.2 cm mid DESCENDING THORACIC AORTA: 2.2 cm limited upper ABDOMEN: small cystic lesion in the right lobe of liver. - adjacent 7 mm focal hyperdense lesion, which may represent hemangioma but is incompletely characterized in the current study Clinical correlation and if indicated dedicated interval abdominal follow-up studies are recommended Gas Cutting Machine Operator (topogram) images: No additional findings. IMPRESSION: WIDELY PATENT PULMONARY VEINS WITHOUT EVIDENCE OF STENOSIS LEFT ATRIUM: DILATED.LA area: 27 cm2 -small linear structure at the interatrial septum, most consistent with the foramen ovale or a left atrial septal pouch. ADA: inhomogeneous filling arterial phase images, resolved in delayed phase images, consistent with slow flow. Calcification and metallic clips in the right breast and clips left breast tissue, c/w surgical history. Clinical Correlation Is Recommended visualized LUNGS: Scattered area (more content not included)... Invalid Interpretation Code [facility] CTA Pulmonary veins W contra st IVOrdered By: Ccrei Provider on 06-26-2023 Interpretation and review of laboratory results Abnormal [facility] Radiology Result ACTIONABLE Abnormal Guilherme haque [facility] Comment on above: This report contains an incidental or actionable finding. This finding may be a new finding separate from the reason your provider ordered the imaging test or it may be an already known finding that needs additional or continued follow-up. Because of this incidental or actionable finding, you may need another test (imaging or a different type of test). Please contact your provider for the next steps. [facility] CTA Pulmonary veins W contra st [place] 06-26-2023 IMPRESSION: WIDELY PATENT PULMONARY VEINS WITHOUT EVIDENCE OF STENOSIS LEFT ATRIUM: DILATED.LA area: 27 cm2 -small linear structure at the interatrial septum, most consistent with the foramen ovale or a left atrial septal pouch. ADA: inhomogeneous filling arterial phase images, resolved in delayed phase images, consistent with slow flow. Calcification and metallic clips in the right breast and clips left breast tissue, c/w surgical history. Clinical Correlation Is Recommended visualized LUNGS: Scattered areas of fibrotic changes and atelectasis in the upper lobes. visualized LIVER: small cystic lesion in the right lobe of liver. - adjacent 7 mm focal hyperdense lesion, which may represent hemangioma but is incompletely characterized in the current study Clinical correlation and if indicated dedicated interval abdominal follow-up studies are recommended ACTIONABLE RESULT: FOLLOW-UP Acuity: Actionable Findings: Liver Routing Code: LV_1 Recommendation: Unlisted Recommendation (see report) Time Frame: At the discretion of the clinical team. COMMUNICATION: Results will be communicated with the ordering provider via [employer] staff message or phone message by [facility] within 2 business days of report finalization. --END OF FINDING-- Radio Operator Ground: JOSE M Transcribe Date/Time: Jun 26 2023 3:11P Dictated by : ERIKA TELLO MD This examination was interpreted and the report reviewed and electronically signed by: ANAY IBARRA MD on Jun 26 2023 4:10PM [facility] DIVISION OF RADIOLOGY * * *Final Report* * * DATE OF EXAM: Jun 26 2023 3:09PM JQC 0464 - CT PULMONARY VEIN W IVCON / PROCEDURE REASON: Atrial fibrillation, persistent (HCC) * * * * Physician Interpretation * * * * Cardiac CTA of the Pulmonary Veins Direct Image Comparison: CTA abdomen 12/12/2014 and CTA chest 12/01/2014 HISTORY: 78 years old Female patient with chronic atrial fibrillation. The patient is evaluated for further treatment options, including PVI. There is request to define pulmonary vein anatomy. TECHNIQUE: SCANNER: Siemens Somatom Force Dual source [id number] scanner PROTOCOL: Sequential imaging of the heart with prospective triggering in systolic phase and 1.5 mm slice reconstruction was performed following the intravenous administration of contrast material. Additional delayed imaging covering the ADA was performed The scan range extended from vaishnavi to the base of the heart CT Dose-Length Product (DLP): 81 mGy*cm CT Dose Reduction Employed: Automated exposure control(AEC) and iterative recon Radiation Shielding Employed: Yes CONTRAST: IV administration of 75 ml Omnipaque 350 Scan acquisition was uncomplicated. Macro Version: [id number]:CCTW_5 For optimization of anatomic evaluation, advanced 3-D off-line postprocessing was performed on a dedicated workstation by the interpreting physician. Additional lung CAD. Almonte images reconstructed, saved, and available in [employer] 'Get Images'. STUDY LIMITATIONS: None. RESULT: LINES, TUBES and DEVICES: None limited CHEST: visualized Chest wall anatomy: Calcification and metallic clips in the right breast and clips left breast tissue, c/w surgical history. Clinical correlation is recommended visualized LUNGS: stable mall left-sided pleural effusion with adjacent atelectasis. Scattered areas of fibrotic changes and atelectasis in the upper lobes. visualized MEDIASTINUM: small mediastinal lymph nodes, which are not pathologic by size criteria. PERICARDIUM: unremarkable CENTRAL PULMONARY ARTERY: incompletely visualized CARDIAC CHAMBERS: Chamber size may be underestimated in single-phase systolic acquisition. LEFT VENTRICLE: normal size. RIGHT VENTRICLE: normal size Left atrium: dilated.LA area: 27 cm2 -small linear structure at the interatrial septum, most consistent with the foramen ovale or a left atrial septal pouch. ADA: inhomogeneous filling arterial phase images, resolved in delayed phase images, consistent with slow flow. Right atrium: dilated CENTRAL VENOUS and PULMONARY VENOUS RETURN: normal. Coronary Sinus: normal size MITRAL VALVE: assessment is limited in the current study - no leaflet calcification. No annular calcification TRICUSPID and PULMONIC VALVE: appear unremarkable. PULMONARY VEINS: Major pulmonary veins are widely patent without evidence of pulmonary vein stenosis. Left sided veins drain separately into the LA. Right middle vein has a common ostium with the right superior vein RSPV (right superior): Normal; no luminal stenosis. No wall changes. RIPV (right inferior): Normal; no luminal stenosis. No wall changes. RMPV (right middle): Normal; no luminal stenosis. No wall changes. LSPV (left superior): Normal; no luminal stenosis. No wall changes. LIPV (left inferior): Normal; no luminal stenosis. No wall changes. CORONARY ANATOMY: normal origin of the coronary arteries. Calcified atherosclerotic changes of the coronary arteries, precluding precise assessment with CT. AORTIC VALVE: appears trileaflet. No leaflet calcification. visualized AORTA: Pathology: No aortic pathology of the limited visualized segment of the aorta. Intervention: None Complications: n/a Aortic Size: Normal size visualized thoracic aorta. STJ: maintained Minimal calcification Wall Changes: No wall calcification ascending aorta beyond the STJ. Mild partially calcified wall changes descending thoracic aorta. AORTIC DIMENSIONS: AORTIC ROOT: 3.5 cm measured [id number] mid ASCENDING THORACIC AORTA: 3.2 cm mid DESCENDING THORACIC AORTA: 2.2 cm limited upper ABDOMEN: small cystic lesion in the right lobe of liver. - adjacent 7 mm focal hyperdense lesion, which may represent hemangioma but is incompletely characterized in the current study Clinical correlation and if indicated dedicated interval abdominal follow-up studies are recommended Gas Cutting Machine Operator (topogram) images: No additional findings. DIVISION OF RADIOLOGY Provider, [facility] - 06/26/2023 * * *Final Report* * * DATE OF EXAM: Jun 26 2023 3:09PM JQC 0464 - CT PULMONARY VEIN W IVCON / PROCEDURE REASON: Atrial fibrillation, persistent (HCC) * * * * Physician Interpretation * * * * Cardiac CTA of the Pulmonary Veins Direct Image Comparison: CTA abdomen 12/12/2014 and CTA chest 12/01/2014 HISTORY: 78 years old Female patient with chronic atrial fibrillation. The patient is evaluated for further treatment options, including PVI. There is request to define pulmonary vein anatomy. TECHNIQUE: SCANNER: Siemens Somatom Force Dual source [id number] scanner PROTOCOL: Sequential imaging of the heart with prospective triggering in systolic phase and 1.5 mm slice reconstruction was performed following the intravenous administration of contrast material. Additional delayed imaging covering the ADA was performed The scan range extended from vaishnavi to the base of the heart CT Dose-Length Product (DLP): 81 mGy*cm CT Dose Reduction Employed: Automated exposure control(AEC) and iterative recon Radiation Shielding Employed: Yes CONTRAST: IV administration of 75 ml Omnipaque 350 Scan acquisition was uncomplicated. Macro Version: [id number]:CCTW_5 For optimization of anatomic evaluation, advanced 3-D off-line postprocessing was performed on a dedicated workstation by the interpreting physician. Additional lung CAD. Almonte images reconstructed, saved, and available in [employer] 'Get Images'. STUDY LIMITATIONS: None. RESULT: LINES, TUBES and DEVICES: None limited CHEST: visualized Chest wall anatomy: Calcification and metallic clips in the right breast and clips left breast tissue, c/w surgical history. Clinical correlation is recommended visualized LUNGS: stable mall left-sided pleural effusion with adjacent atelectasis. Scattered areas of fibrotic changes and atelectasis in the upper lobes. visualized MEDIASTINUM: small mediastinal lymph nodes, which are not pathologic by size criteria. PERICARDIUM: unremarkable CENTRAL PULMONARY ARTERY: incompletely visualized CARDIAC CHAMBERS: Chamber size may be underestimated in single-phase systolic acquisition. LEFT VENTRICLE: normal size. RIGHT VENTRICLE: normal size Left atrium: dilated.LA area: 27 cm2 -small linear structure at the interatrial septum, most consistent with the foramen ovale or a left atrial septal pouch. ADA: inhomogeneous filling arterial phase images, resolved in delayed phase images, consistent with slow flow. Right atrium: dilated CENTRAL VENOUS and PULMONARY VENOUS RETURN: normal. Coronary Sinus: normal size MITRAL VALVE: assessment is limited in the current study - no leaflet calcification. No annular calcification TRICUSPID and PULMONIC VALVE: appear unremarkable. PULMONARY VEINS: Major pulmonary veins are widely patent without evidence of pulmonary vein stenosis. Left sided veins drain separately into the LA. Right middle vein has a common ostium with the right superior vein RSPV (right superior): Normal; no luminal stenosis. No wall changes. RIPV (right inferior): Normal; no luminal stenosis. No wall changes. RMPV (right middle): Normal; no luminal stenosis. No wall changes. LSPV (left superior): Normal; no luminal stenosis. No wall changes. LIPV (left inferior): Normal; no luminal stenosis. No wall changes. CORONARY ANATOMY: normal origin of the coronary arteries. Calcified atherosclerotic changes of the coronary arteries, precluding precise assessment with CT. AORTIC VALVE: appears trileaflet. No leaflet calcification. visualized AORTA: Pathology: No aortic pathology of the limited visualized segment of the aorta. Intervention: None Complications: n/a Aortic Size: Normal size visualized thoracic aorta. STJ: maintained Minimal calcification Wall Changes: No wall calcification ascending aorta beyond the STJ. Mild partially calcified wall changes descending thoracic aorta. AORTIC DIMENSIONS: AORTIC ROOT: 3.5 cm measured [id number] mid ASCENDING THORACIC AORTA: 3.2 cm mid DESCENDING THORACIC AORTA: 2.2 cm limited upper ABDOMEN: small cystic lesion in the right lobe of liver. - adjacent 7 mm focal hyperdense lesion, which may represent hemangioma but is incompletely characterized in the current study Clinical correlation and if indicated dedicated interval abdominal follow-up studies are recommended Gas Cutting Machine Operator (topogram) images: No additional findings. IMPRESSION IMPRESSION: WIDELY PATENT PULMONARY VEINS WITHOUT EVIDENCE OF STENOSIS LEFT ATRIUM: DILATED.LA area: 27 cm2 -small linear structure at the interatrial septum, most consistent with the foramen ovale or a left atrial septal pouch. ADA: inhomogeneous filling arterial phase images, resolved in delayed phase images, consistent with slow flow. Calcification and metallic clips in the (more content not included)... [facility] Radiology Study observation (narrative) [facility] ECG COMPLETEon 06-26-2023 ECG COMPLETE Ventricular Rate : 6 0 BPM Atrial Rate : 60 BPM P-R Interval : 170 ms QRS Duration : 78 ms Q-T Interval : 472 ms QTC Calculation(Bazett) : 472 ms Calculated P [place] : 69 degrees Calculated R [place] : 15 degrees Calculated T [place] : 43 degrees NORMAL SINUS RHYTHM NONSPECIFIC ST AND T WAVE ABNORMALITY ABNORMAL ECG Confirmed by KIMBERLEE DIAZ MD ([id number]) on 07/17/2023 9:59:22 AM NAME : CRISELDA STORM PID : [id number] : 1945 Gender : Female Race : ORD : [id number] Procedure Date : Jun 26 2023 13:33:44 Edit Date : Jul 17 2023 09:59:23 Diagnosis: NORMAL SINUS RHYTHM NONSPECIFIC ST AND T WAVE ABNORMALITY ABNORMAL ECG Confirmed by KIMBERLEE DIAZ MD ([id number]) on 07/17/2023 9:59:22 AM Test Reason : Location : 314 : J14 J1-4 Overread By : KIMBERLEE DIAZ MD Edited By : KIMBERLEE DIAZ MD Referred By : BEAR RODARTE Acquired by : CHE MORAN Normal [facility] TYPE AND SCREEN,30 DAYon ABO A Normal [facility] Comment on above: Order Comment: Speci men Type: BLOOD SPECIMEN Ordering Facility: [facility] Address: [address] [place] [address] Performed By: #### 5 8410-2 #### [facility] CLIA [id number] [address] [place] [address] [place] HISTORICAL AB SCR STATUS Negative Normal [facility] Comment on above: Order Comment: Speci men Type: BLOOD SPECIMEN Ordering Facility: [facility] Address: [address] [place] [address] Performed By: #### 5 8410-2 #### [facility] CLIA [id number] [address] [place] [address] [place] Rh Nom (Bld) Positive Normal [facility] Comment on above: Order Comment: Speci men Type: BLOOD SPECIMEN Ordering Facility: [facility] Address: [address] [place] [address] Performed By: #### 5 8410-2 #### [facility] CLIA [id number] [address] [place] [address] OF [place] CNPMinerva 06-12-2023 CNPN Telephone ([facility]) CRISELDA STORM ([id number]) 1945 F Date Time Provider Department 06/12/23 BEAR RODARTE [facility] During your visit today, we recorded the following information about you: January Clark RN 06/12/2023 3:52 PM Signed Due to change in Dr. Rodarte's schedule, called patient and left message offering sooner date of Saturday07/03/23. Awaiting return call from patient. January Clark, RN, RN January Clark RN 06/12/2023 5:12 PM Signed Patient returned call and accepted sooner procedure date of Saturday07/03/[address] Rodarte. Reviewed medication instructions with patient, patient stated understanding. Please reschedule pre op appointments to within 30 days prior of procedure. January Clark, RN, RN Allergies As of Date: 06/12/2023 (No Known Allergies) Date Reviewed: 04/09/2023 Reviewed by: Terri Spears RN - Fully Assessed Reason for Visit: Procedure [88] Cmt: EP: PVI/AFL RFA (offered sooner date) Prescriptions as of 06/12/2023 - amiodarone (PACERONE) 200 mg tablet Take 200 mg by mouth two times a day. - FARXIGA 10 mg tablet Take 10 mg by mouth daily with breakfast. - ENTRESTO 24-26 mg tablet Take 1 tablet by mouth once daily. - apixaban (ELIQUIS) 5 mg tab(s) Take 5 mg by mouth two times a day. - furosemide (LASIX) 40 mg tablet Take 40 mg by mouth two times a day. - metoprolol tartrate, short acting, (LOPRESSOR) 50 mg tablet Take 50 mg by mouth two times a day. Problem List As Of Date 06/12/2023 Noted Resolved Generalized anxiety disorder [F41.1] 05/18/2015 Breast cancer (HCC) [C50.919] 04/09/2023 Hyperlipidemia [E78.5] 12/11/2021 Compression fracture of T12 vertebra with routi*04/09/2023 Age-related osteoporosis without current pathol*05/18/2015 Dilated cardiomyopathy (HCC) [I42.0] 04/09/2023 Encounter Status:Closed by JANUARY CLARK on 06/12/23 Normal [facility] Basic metabolic 2000 panelon 05-29-2023 Anion gap [Moles/Vol] 9 mmol/L Normal 9-18 [facility] Comment on above: Order Comment: Speci men Type: BLOOD SPECIMEN Ordering Facility: [facility] Address: [address] [place], [place] [id number] Performed By: #### 5 8410-2 #### [facility] CLIA [id number] [address] [place] [address] [place] Calcium [Mass/Vol] 9.8 mg/dL Normal 8.5-10.2 [facility] Comment on above: Order Comment: Speci men Type: BLOOD SPECIMEN Ordering Facility: [facility] Address: [address] [place] [address] Performed By: #### 5 8410-2 #### [facility] CLIA [id number] [address] [place] [address] [place] Chloride [Moles/Vol] 95 mmol/L Low 97-105 [facility] Comment on above: Order Comment: Speci men Type: BLOOD SPECIMEN Ordering Facility: [facility] Address: [address] [place] [address] Performed By: #### 5 8410-2 #### [facility] CLIA [id number] [address] [place] [address] [place] CO2 [Moles/Vol] 30 mmol/L Normal 22-30 [facility] Comment on above: Order Comment: Speci men Type: BLOOD SPECIMEN Ordering Facility: [facility] Address: [address] [place], [place] [address] Performed By: #### 5 8410-2 #### [facility] CLIA [id number] [address] [place] [id number] [place] Creatinine [Mass/Vol] 0.86 mg/dL Normal 0.58-0.96 [facility] Comment on above: Order Comment: Speci men Type: BLOOD SPECIMEN Ordering Facility: [facility] Address: [address] [place], [place] [address] Performed By: #### 5 8410-2 #### [facility] CLIA [id number] [address] [place] [address] [place] Creatinine and Glomerular filtration rate.predicted panel (S/P/Bld) 70 mL/min/1.73m??? Normal >=60 [facility] Comment on above: Order Comment: Isabel zayas Type: BLOOD SPECIMEN Ordering Facility: [facility] Address: [address] [place] [address] Result Comment: Valentine mated Glomerular Filtration Rate (eGFR) is calculated using the 2020 CKD-EPI creatinine equation. This equation utilizes serum creatinine, sex, and age as parameters. The creatinine assay has traceable calibration to isotope dilution-mass spectrometry. Refer to KDIGO guidelines for clinical interpretation. In patients with unstable renal function, e.g. those with acute kidney injury, the eGFR may not accurately reflect actual GFR. Performed By: #### 5 8410-2 #### [facility] CLIA [id number] [address] [place] [address] [place] Glucose [Mass/Vol] 100 mg/dL High 74-99 [facility] Comment on above: Order Comment: Isabel zayas Type: BLOOD SPECIMEN Ordering Facility: [facility] Address: [address] [place] [address] Result Comment: The [place] Diabetes Association (ADA) provides guidance for cutoff values for fasting glucose and random glucose. The ADA defines fasting as no caloric intake for at least 8 hours. Fasting plasma glucose results between 100 to 125 mg/dL indicate increased risk for diabetes (prediabetes). Fasting plasma glucose results greater than or equal to 126 mg/dL meet the criteria for diagnosis of diabetes. In the absence of unequivocal hyperglycemia, results should be confirmed by repeat testing. In a patient with classic symptoms of hyperglycemia or hyperglycemic crisis, random plasma glucose results greater than or equal to 200 mg/dL meet the criteria for diagnosis of diabetes. Reference: Standards of Medical Care in Diabetes 2016, [place] [employer] Association. Diabetes Care. 2016.39(Suppl 1). Performed By: #### 5 8410-2 #### [facility] CLIA [id number] [address] [place] [address] [place] Potassium [Moles/Vol] 4.4 mmol/L Normal 3.7-5.1 [facility] Comment on above: Order Comment: Speci men Type: BLOOD SPECIMEN Ordering Facility: [facility] Address: [address] [place] [address] Performed By: #### 5 8410-2 #### [facility] CLIA [id number] [address] [place] [address] [place] Sodium [Moles/Vol] 134 mmol/L Low 136-144 [facility] Comment on above: Order Comment: Speci men Type: BLOOD SPECIMEN Ordering Facility: [facility] Address: [address] [place] [address] Performed By: #### 5 8410-2 #### [facility] CLIA [id number] [address] [place] [address] [place] Urea nitrogen [Mass/Vol] 17 mg/dL Normal 7-21 [facility] Comment on above: Order Comment: Speci men Type: BLOOD SPECIMEN Ordering Facility: [facility] Address: [address] [place] [address] Performed By: #### 5 8410-2 #### [facility] CLIA [id number] [address] [place] [address] [place] CBC panel Auto (Bld)on 05-28 Erythrocyte distribution width (RBC) [Ratio] 14.3 % Normal 11.5-15.0 [facility] Comment on above: Order Comment: Speci men Type: BLOOD SPECIMEN Ordering Facility: [facility] Address: [address] [place] [address] Performed By: #### 5 8410-2 #### [facility] CLIA [id number] [address] [place] [address] [place] Hematocrit (Bld) [Volume fraction] 41.9 % Normal 36.0-46.0 [facility] Comment on above: Order Comment: Speci men Type: BLOOD SPECIMEN Ordering Facility: [facility] Address: [address] [place] [address] Performed By: #### 5 8410-2 #### [facility] CLIA [id number] [address] [place] [address] [place] Hemoglobin (Bld) [Mass/Vol] 13.6 g/dL Normal 11.5-15.5 [facility] Comment on above: Order Comment: Speci men Type: BLOOD SPECIMEN Ordering Facility: [facility] Address: [address] [place] [address] Performed By: #### 5 8410-2 #### [facility] CLIA [id number] [address] [place] [address] [place] MCH (RBC) [Entitic mass] 32.0 pg Normal 26.0-34.0 [facility] Comment on above: Order Comment: Speci men Type: BLOOD SPECIMEN Ordering Facility: [facility] Address: [address] [place] [address] Performed By: #### 5 8410-2 #### [facility] CLIA [id number] [address] [place] [address] [place] MCHC (RBC) [Mass/Vol] 32.5 g/dL Normal 30.5-36.0 [facility] Comment on above: Order Comment: Speci men Type: BLOOD SPECIMEN Ordering Facility: [facility] Address: [address] [place] [address] Performed By: #### 5 8410-2 #### [facility] CLIA [id number] [address] [place] [address] [place] MCV (RBC) [Entitic vol] 98.6 fL Normal 80.0-100.0 [facility] Comment on above: Order Comment: Speci men Type: BLOOD SPECIMEN Ordering Facility: [facility] Address: [address] [place] [address] Performed By: #### 5 8410-2 #### [facility] CLIA [id number] [address] [place] [address] [place] Nucleated RBC (Bld) [#/Vol] 10*3/uL Normal <0.01 [facility] Comment on above: Order Comment: Speci men Type: BLOOD SPECIMEN Ordering Facility: [facility] Address: [address] [place] [address] Performed By: #### 5 8410-2 #### [facility] CLIA [id number] [address] [place] [address] [place] Platelet mean volume (Bld) [Entitic vol] 10.7 fL Normal 9.0-12.7 [facility] Comment on above: Order Comment: Speci men Type: BLOOD SPECIMEN Ordering Facility: [facility] Address: [address] [place] [address] Performed By: #### 5 8410-2 #### [facility] CLIA [id number] [address] [place] [address] [place] Platelets (Bld) [#/Vol] 311 10*3/uL Normal 150-400 [facility] Comment on above: Order Comment: Speci men Type: BLOOD SPECIMEN Ordering Facility: [facility] Address: [address] [place] [address] Performed By: #### 5 8410-2 #### [facility] CLIA [id number] [address] [place] [address] [place] RBC (Bld) [#/Vol] 4.25 10*6/uL Normal 3.90-5.20 [facility] Comment on above: Order Comment: Speci men Type: BLOOD SPECIMEN Ordering Facility: [facility] Address: [address] [place] [address] Performed By: #### 5 8410-2 #### [facility] CLIA [id number] [address] [place] [address] [place] WBC (Bld) [#/Vol] 4.05 10*3/uL Normal 3.70-11.00 [facility] Comment on above: Order Comment: Speci men Type: BLOOD SPECIMEN Ordering Facility: [facility] Address: [address] [place] [address] Performed By: #### 5 8410-2 #### [facility] CLIA [id number] [address] [place] [address] [facility] CNPMinerva 05-24-2023 CNPN Telephone (EPSMN) CRISELDA STORM ([id number]) 1945 F Date Time Provider Department 05/24/23 [facility] During your visit today, we recorded the following information about you: January Clark RN 05/24/2023 11:01 AM Signed ----- Message from Bear Rodarte MD sent at 05/16/2023 9:37 AM EDT ----- Regarding: Schedule AF/AFL ablation Patient: Criselda Storm EP Lab Procedure requested: Ablations PVI ablation CPT 14185 Anticoagulation Status: Eliquis (apixaban) Requesting Physician: Bear Rodarte MD Procedural Physician: Bear Rodarte MD Date of last HANDP or Date of upcoming HANDP: 05/16/23 Indications for procedure: Atrial Fibrillation and Atrial Flutter Procedure time frame: Patient convenience Current Meds: Current Outpatient Medications: ? amiodarone (PACERONE) 200 mg tablet? FARXIGA 10 mg tablet? ENTRESTO 24-26 mg tablet? apixaban (ELIQUIS) 5 mg tab(s)? furosemide (LASIX) 40 mg tablet? metoprolol tartrate, short acting, (LOPRESSOR) 50 mg tablet input Section Potential Research Patient: No General anesthesia or Managed Anesthesia Care (MAC) needed: Yes Conscious Sedation: No Mapping Ablation: Biosense Diaz (CARTO) CT Scan needed pre-procedure: Yes ECHO needed pre-procedure: No Anticoagulation: Continue anticoagulation. Do not interrupt. Stop Antiarrhythmic: No Stop Beta Nba/ Calcium Channel Nba: No ASA: N/A Plavix: N/A Additional instructions:None Is the patient a candidate for same day d/c: Yes Bear Rodarte MD May 16, 2023 9:39 AM January Clark RN 05/24/2023 11:13 AM Signed Patient declined date of 10/02/[address] Rodarte due to her grandson's wedding, requesting sooner date. Due to change in Dr. Rodarte's schedule, able to offer patient sooner date of Saturday07/24/[address] Rodarte. Patient is on Eliquis, instructed to continue without interruption, hold dose the morning of procedure, stated understanding. Patient also instructed to hold Farxiga for 3 days prior to procedure per anesthesia guidelines, patient stated understanding. Please schedule patient for pre op appointments within 30 days for OPD, Labs (CBC, BMP, 30 Day Type AND Screen, Confirm), CT and EKG. January Clark RN, RN Allergies As of Date: 05/24/2023 (No Known Allergies) Date Reviewed: 04/09/2023 Reviewed by: Terri Spears RN - Fully Assessed Reason for Visit: Procedure [88] Cmt: EP: PVI/AFL RFA Primary Visit Diagnosis:Atrial fibrillation, persistent (HCC) [I48.19] Order(s):BASIC METABOLIC PNL [SQBMP] Order #: [id number] FUTURE CBC [SQCBC] Order #: [id number] FUTURE CONFIRM BLOOD TYPE [SQCONABO] Order #: [id number] FUTURE TYPE AND SCREEN,30 DAY [OCQKNE58] Order #: [id number] FUTURE ECG COMPLETE [ECG01] Order #: [id number] FUTURE CT PULMONARY VEIN W IVCON [1417024] Order #: [id number] FUTURE iv contrast (will be provided with radiology test)CT Pulm Vein - No IV access, insert saline lock prior to the sedation, infusion, injection for imaging exam. Discontinue saline lock post exam. If Pt. has a central line or IVAD, may access for administration according to line specific nursing protocol. Once exam is complete flush line and de-access according to line specific nursing protocol in the CT contrast administration guidelines link.Disp: 1 EachRfl: 0 CREATININE BLD [SQCRET] Order #: [id number] FUTURE Prescriptions as of 05/24/2023 - iv contrast (will be provided with radiology test) CT Pulm Vein - No IV access, insert saline lock prior to the sedation, infusion, injection for imaging exam. Discontinue saline lock post exam. If Pt. has a central line or IVAD, may access for administration according to line specific nursing protocol. Once exam is complete flush line and de-access according to line specific nursing protocol in the CT contrast administration guidelines link. - amiodarone (PACERONE) 200 mg tablet Take 200 mg by mouth two times a day. - FARXIGA 10 mg tablet Take 10 mg by mouth daily with breakfast. - ENTRESTO 24-26 mg tablet Take 1 tablet by mouth once daily. - apixaban (ELIQUIS) 5 mg tab(s) Take 5 mg by mouth two times a day. - furosemide (LASIX) 40 mg tablet Take 40 mg by mouth two times a day. - metoprolol tartrate, short acting, (LOPRESSOR) 50 mg tablet Take 50 mg by mouth two times a day. Problem List As Of Date 05/24/2023 Noted Resolved Generalized anxiety disorder [F41.1] 05/18/2015 Breast cancer (HCC) [C50.919] 04/09/2023 Hyperlipidemia [E78.5] 12/11/2021 Compression fracture of T12 vertebra with routi*04/09/2023 Age-related osteoporosis without current pathol*05/18/2015 Dilated cardiomyopathy (HCC) [I42.0] 04/09/2023 Prescriptions ordered this encounter Disp Refills Start End IV CONTRAST (RADIOLOGY PROCEDURE) (more content not included)... Normal [facility] percentageOrdered B y: Hazel Denson on 02-28-2023 Chloride [Moles/Vol] 101 mmol/L 98-107 [facility] Glucose [Mass/Vol] 114 mg/dL 74-106 [facility] Comment on above: Fasting Glucose resu lt from 100 to 125 mg/dL suggests IMPAIRED HOMEOSTASIS per A.D.A. criteria. Potassium [Moles/Vol] 3.3 mmol/L 3.5-5.1 [facility] Sodium [Moles/Vol] 139 mmol/L 136-145 [facility] WBC (Bld) [#/Vol] 6.8 10*3/uL 4.4-11.0 [facility] Blood erythrocytes count (nu mber/volume)Ordered By: Hazel Denson on 02-28-2023 RBC (Bld) [#/Vol] 3.86 10*6/uL 4.2-5.4 [facility] Blood hemoglobin measurement (mass/volume)Ordered By: Hazel Denson on 02-28-2023 Hemoglobin (Bld) [Mass/Vol] 12.5 g/dL 12.0-15.0 [facility] Blood platelet mean volumeOr dered By: Hazel Denson on 02-28-2023 Platelet mean volume (Bld) [Entitic vol] 10.9 fL 6.2-12.0 [facility] Determination of erythrocyte mean corpuscular volume (MCV)Ordered By: Hazel Denson on 02-28-2023 MCV (RBC) [Entitic vol] 100.5 fL 81-99 [facility] Hematocrit Auto (Bld) [Volum e fraction]Ordered By: Hazel Denson on 02-28-2023 Hematocrit (Bld) [Volume fraction] 38.8 % 37-47 [facility] Laboratory - Chemistry and C hemistry - challengeOrdered By: Hazel Denson on 02-28-2023 CO2 [Moles/Vol] 31.0 mmol/L 21.0-32.0 [facility] Natriuretic peptide B (Bld) [Mass/Vol] 641.1 pg/mL 0-100 [facility] Urea nitrogen/Creatinine [Mass ratio] 12.1 mg/mg 10-20 [facility] - Hematology and Cell countsOrdered By: Hazel Denson on 02-28-2023 Erythrocyte distribution width (RBC) [Entitic vol] 58.4 fL 35.1-43.9 [facility] Erythrocyte distribution width (RBC) [Ratio] 15.8 % 11.6-14.6 [facility] MCH (RBC) [Entitic mass] 32.4 pg 27.0-32.0 [facility] MCHC Auto (RBC) [Mass/Vol]Or dered By: Hazel Denson on 02-28-2023 MCHC (RBC) [Mass/Vol] 32.2 g/dL 32-36 [facility] No Panel InformationOrdered By: Hazel Denson on 02-28-2023 Estimated GFR (MDRD) Amer 77 mL/min >60 [facility] Comment on above: GFR Calc Estimated GFR (MDRD) Non-Af Amer 64 mL/min >60 [facility] Comment on above: Non- GFR Calc Platelets bldOrdered By: Shen Denson on 02-28-2023 Platelets (Bld) [#/Vol] 337 10*3/uL 150-450 [facility] Serum or plasma calcium ollie urement (mass/volume)Ordered By: Hazel Denson on 02-28-2023 Calcium [Mass/Vol] 9.0 mg/dL 8.5-10.1 [facility] Serum or plasma creatinine m easurement (mass/volume)Ordered By: Hazel Denson on 02-28-2023 Creatinine [Mass/Vol] 0.91 mg/dL 0.55-1.02 [facility] Comment on above: The validity of the calculated GFR & GFRAA in patients over 70 years has not been determined. Clinical correlation is essential. Serum or plasma urea nitroge n measurement (mass/volume)Ordered By: Hazel Denson on 02-28-2023 Urea nitrogen [Mass/Vol] 11 mg/dL 7-18 [facility] Thin prep Papanicolaou smear with manual screeningOrdered By: Hazel Denson on 02-28-2023 Thin prep Papanicolaou smear with manual screening 7 5-15 [facility] Absolute lymphocyte countOrd ered By: Hazel Denson on 12-20-2022 Lymphocytes Auto (Unsp spec) [#/Vol] 1.14 10*3/uL 0.83-4.51 [facility] Basophil percentageOrdered B y: Hazel Denson on 12-20-2022 Basophils/100 WBC (Bld) 1.2 % 0-1 [facility] Chloride [Moles/Vol] 98 mmol/L 98-107 [facility] Eosinophils/100 WBC (Bld) 0.9 % 0-5 [facility] Glucose [Mass/Vol] 107 mg/dL 74-106 [facility] Comment on above: Fasting Glucose resu lt from 100 to 125 mg/dL suggests IMPAIRED HOMEOSTASIS per A.D.A. criteria. Neutrophils (Bld) [#/Vol] 4.0 10*3/uL 2.0-7.7 [facility] Neutrophils/100 WBC (Bld) 69.1 % 47-70 [facility] Potassium [Moles/Vol] 3.8 mmol/L 3.5-5.1 [facility] Sodium [Moles/Vol] 137 mmol/L 136-145 [facility] WBC (Bld) [#/Vol] 5.8 10*3/uL 4.4-11.0 [facility] Blood erythrocytes count (nu mber/volume)Ordered By: Hazel Denson on 12-20-2022 RBC (Bld) [#/Vol] 4.35 10*6/uL 4.2-5.4 [facility] Blood hemoglobin measurement (mass/volume)Ordered By: Hazel Denson on 12-20-2022 Hemoglobin (Bld) [Mass/Vol] 13.6 g/dL 12.0-15.0 [facility] Blood lymphocytes/100 leukoc ytesOrdered By: Hazel Denson on 12-20-2022 Lymphocytes/100 WBC (Bld) 19.8 % 19-41 [facility] Blood monocytes/100 leukocyt esOrdered By: Hazel Denson on 12-20-2022 Monocytes/100 WBC (Bld) 8.7 % 0-10 [facility] Blood platelet mean volumeOr dered By: Hazel Denson on 12-20-2022 Platelet mean volume (Bld) [Entitic vol] 12.3 fL 6.2-12.0 [facility] Determination of erythrocyte mean corpuscular volume (MCV)Ordered By: Hazel Denson on 12-20-2022 MCV (RBC) [Entitic vol] 100.5 fL 81-99 [facility] Hematocrit Auto (Bld) [Volum e fraction]Ordered By: Hazel Denson on 12-20-2022 Hematocrit (Bld) [Volume fraction] 43.7 % 37-47 [facility] Laboratory - Chemistry and C hemistry - challengeOrdered By: Hazel Denson on 12-20-2022 CO2 [Moles/Vol] 33.0 mmol/L 21.0-32.0 [facility] Urea nitrogen/Creatinine [Mass ratio] 15.5 mg/mg 10-20 [facility] - Hematology and Cell countsOrdered By: Hazel Denson on 12-20-2022 Erythrocyte distribution width (RBC) [Entitic vol] 49.9 fL 35.1-43.9 [facility] Erythrocyte distribution width (RBC) [Ratio] 13.7 % 11.6-14.6 [facility] Immature granulocytes/100 WBC (Bld) 0.300 % 0.0-0.9 [facility] Comment on above: IG% - Immature Granu locytes (promyelocytes, myelocytes and metamyelocytes) > 1% indicates that a LEFT SHIFT is Present. MCH (RBC) [Entitic mass] 31.3 pg 27.0-32.0 [facility] Nucleated RBC/100 WBC (Bld) [Ratio] 0 % 0-5 [facility] MCHC Auto (RBC) [Mass/Vol]Or dered By: Hazel Denson on 12-20-2022 MCHC (RBC) [Mass/Vol] 31.1 g/dL 32-36 [facility] No Panel InformationOrdered By: Hazel Denson on 12-20-2022 Estimated GFR (MDRD) Amer 85 mL/min >60 [facility] Comment on above: GFR Calc Estimated GFR (MDRD) Non-Af Amer 70 mL/min >60 [facility] Comment on above: Non- GFR Calc Platelets bldOrdered By: Shen Denson on 12-20-2022 Platelets (Bld) [#/Vol] 273 10*3/uL 150-450 [facility] Serum or plasma calcium ollie urement (mass/volume)Ordered By: Hazel Denson on 12-20-2022 Calcium [Mass/Vol] 9.0 mg/dL 8.5-10.1 [facility] Serum or plasma creatinine m easurement (mass/volume)Ordered By: Hazel Denson on 12-20-2022 Creatinine [Mass/Vol] 0.84 mg/dL 0.55-1.02 [facility] Comment on above: The validity of the calculated GFR & GFRAA in patients over 70 years has not been determined. Clinical correlation is essential. Serum or plasma urea nitroge n measurement (mass/volume)Ordered By: Hazel Denson on 12-20-2022 Urea nitrogen [Mass/Vol] 13 mg/dL 7-18 [facility] Thin prep Papanicolaou smear with manual screeningOrdered By: Hazel Denson on 12-20-2022 Thin prep Papanicolaou smear with manual screening 6 5-15 [facility] Absolute lymphocyte countOrd ered By: Rachna Acosta on 10-29-2022 Lymphocytes Auto (Unsp spec) [#/Vol] 0.48 10*3/uL 0.83-4.51 [facility] Basophil percentageOrdered B y: Rachna Acosta on 10-29-2022 Basophils/100 WBC (Bld) 0.2 % 0-1 [facility] Bilirubin [Mass/Vol] 0.70 mg/dL 0.20-1.00 [facility] Comment on above: For patients on eltr ombopag therapy, use of Dimension [place] TBIL is not recommended. Chloride [Moles/Vol] 96 mmol/L 98-107 [facility] Eosinophils/100 WBC (Bld) 0.0 % 0-5 [facility] Glucose [Mass/Vol] 116 mg/dL 74-106 [facility] Comment on above: Fasting Glucose resu lt from 100 to 125 mg/dL suggests IMPAIRED HOMEOSTASIS per A.D.A. criteria. Neutrophils (Bld) [#/Vol] 9.5 10*3/uL 2.0-7.7 [facility] Neutrophils/100 WBC (Bld) 91.2 % 47-70 [facility] Potassium [Moles/Vol] 3.5 mmol/L 3.5-5.1 [facility] Protein [Mass/Vol] 7.5 g/dL 6.4-8.2 [facility] Sodium [Moles/Vol] 134 mmol/L 136-145 [facility] WBC (Bld) [#/Vol] 10.4 10*3/uL 4.4-11.0 [facility] Blood erythrocytes count (nu mber/volume)Ordered By: Rachna Acosta on 10-29-2022 RBC (Bld) [#/Vol] 4.76 10*6/uL 4.2-5.4 [facility] Blood hemoglobin measurement (mass/volume)Ordered By: Rachna Acosta on 10-29-2022 Hemoglobin (Bld) [Mass/Vol] 15.6 g/dL 12.0-15.0 [facility] Blood lymphocytes/100 leukoc ytesOrdered By: Rachna Acosta on 10-29-2022 Lymphocytes/100 WBC (Bld) 4.6 % 19-41 [facility] Blood manual differential co mment interpretation (narrative result)Ordered By: Rachna Acosta on 10-29-2022 Manual differential comment Narendra (Bld) [Interp] SCANNED [facility] Blood monocytes/100 leukocyt esOrdered By: Rachna Acosta on 10-29-2022 Monocytes/100 WBC (Bld) 3.5 % 0-10 [facility] Blood platelet mean volumeOr dered By: Rachna Acosta on 10-29-2022 Platelet mean volume (Bld) [Entitic vol] 12.2 fL 6.2-12.0 [facility] Determination of erythrocyte mean corpuscular volume (MCV)Ordered By: Rachna Acosta on 10-29-2022 MCV (RBC) [Entitic vol] 100.4 fL 81-99 [facility] Hematocrit Auto (Bld) [Volum e fraction]Ordered By: Rachna Acosta on 10-29-2022 Hematocrit (Bld) [Volume fraction] 47.8 % 37-47 [facility] Laboratory - Chemistry and C hemistry - challengeOrdered By: Rachna Acosta on 10-29-2022 ALP [Catalytic activity/Vol] 127 U/L 45-117 [facility] ALT [Catalytic activity/Vol] 72 U/L 13-56 [facility] CO2 [Moles/Vol] 27.0 mmol/L 21.0-32.0 [facility] Free T4 [Mass/Vol] 1.30 ng/dL 0.76-1.46 [facility] Globulin (S) [Mass/Vol] 3.7 g/dL 2.2-4.2 [facility] Magnesium [Mass/Vol] 2.4 mg/dL 1.6-2.6 [facility] Urea nitrogen/Creatinine [Mass ratio] 20.6 mg/mg 10-20 [facility] - Hematology and Cell countsOrdered By: Rachna Acosta on 10-29-2022 Erythrocyte distribution width (RBC) [Entitic vol] 47.5 fL 35.1-43.9 [facility] Erythrocyte distribution width (RBC) [Ratio] 12.7 % 11.6-14.6 [facility] Immature granulocytes/100 WBC (Bld) 0.500 % 0.0-0.9 [facility] Comment on above: IG% - Immature Granu locytes (promyelocytes, myelocytes and metamyelocytes) > 1% indicates that a LEFT SHIFT is Present. MCH (RBC) [Entitic mass] 32.8 pg 27.0-32.0 [facility] Nucleated RBC/100 WBC (Bld) [Ratio] 0.2 % 0-5 [facility] MCHC Auto (RBC) [Mass/Vol]Or dered By: Rachna Acosta on 10-29-2022 MCHC (RBC) [Mass/Vol] 32.6 g/dL 32-36 [facility] No Panel InformationOrdered By: Rachna Acosta on 10-29-2022 Estimated GFR (MDRD) Amer 87 mL/min >60 [facility] Comment on above: GFR Calc Estimated GFR (MDRD) Non-Af Amer 72 mL/min >60 [facility] Comment on above: Non- GFR Calc Free Triiodothyronine (T3) pg/dL 1.6 pg/mL 2.18-3.98 [facility] Thyroid Stimulating Hormone (TSH) 2.02 uIU/mL 0.358-3.74 [facility] Troponin I High Sensitivity 21 pg/mL 3.0-54.0 [facility] Comment on above: Please Note: New Vicky t Units and Gender Specific Reference Ranges. For more information see Policy Stat Procedure [place] High Sensitivity Troponin (TNIH) and attachments. Platelets bldOrdered By: Ashley Acosta on 10-29-2022 Platelets (Bld) [#/Vol] 301 10*3/uL 150-450 [facility] Serum or plasma albumin ollie urement (mass/volume)Ordered By: Rachna Acosta on 10-29-2022 Albumin [Mass/Vol] 3.8 g/dL 3.2-5.0 [facility] Serum or plasma albumin/glob ulin mass ratioOrdered By: Rachna Acosta on 10-29-2022 Albumin/Globulin [Mass ratio] 1.0 {ratio} 0.9-2.4 [facility] Serum or plasma calcium ollie urement (mass/volume)Ordered By: Rachna Acosta on 10-29-2022 Calcium [Mass/Vol] 9.5 mg/dL 8.5-10.1 [facility] Serum or plasma creatinine m easurement (mass/volume)Ordered By: Rachna Acosta on 10-29-2022 Creatinine [Mass/Vol] 0.82 mg/dL 0.55-1.02 [facility] Comment on above: The validity of the calculated GFR & GFRAA in patients over 70 years has not been determined. Clinical correlation is essential. Serum or plasma urea nitroge n measurement (mass/volume)Ordered By: Rachna Acosta on 10-29-2022 Urea nitrogen [Mass/Vol] 17 mg/dL 7-18 [facility] Thin prep Papanicolaou smear with manual screeningOrdered By: Rachna Acosta on 10-29-2022 Thin prep Papanicolaou smear with manual screening 53 U/L 15-37 [facility] Thin prep Papanicolaou smear with manual screening 11 5-15 [facility] Absolute lymphocyte countOrd ered By: Diandra Zuniga on 10-24-2022 Lymphocytes Auto (Unsp spec) [#/Vol] 0.99 10*3/uL 0.83-4.51 [facility] Basophil percentageOrdered B y: Diandra Zuniga on 10-24-2022 Basophils/100 WBC (Bld) 0.8 % 0-1 [facility] Bilirubin [Mass/Vol] 0.80 mg/dL 0.20-1.00 [facility] Comment on above: For patients on eltr ombopag therapy, use of Dimension [place] TBIL is not recommended. Chloride [Moles/Vol] 94 mmol/L 98-107 [facility] Eosinophils/100 WBC (Bld) 1.0 % 0-5 [facility] Glucose [Mass/Vol] 123 mg/dL 74-106 [facility] Comment on above: Fasting Glucose resu lt from 100 to 125 mg/dL suggests IMPAIRED HOMEOSTASIS per A.D.A. criteria. Neutrophils (Bld) [#/Vol] 5.7 10*3/uL 2.0-7.7 [facility] Neutrophils/100 WBC (Bld) 78.1 % 47-70 [facility] Potassium [Moles/Vol] 3.5 mmol/L 3.5-5.1 [facility] Protein [Mass/Vol] 7.7 g/dL 6.4-8.2 [facility] Sodium [Moles/Vol] 129 mmol/L 136-145 [facility] WBC (Bld) [#/Vol] 7.3 10*3/uL 4.4-11.0 [facility] Blood erythrocytes count (nu mber/volume)Ordered By: Diandra Zuniga on 10-24-2022 RBC (Bld) [#/Vol] 4.55 10*6/uL 4.2-5.4 [facility] Blood hemoglobin measurement (mass/volume)Ordered By: Diandra Zuniga on 10-24-2022 Hemoglobin (Bld) [Mass/Vol] 15.0 g/dL 12.0-15.0 [facility] Blood lymphocytes/100 leukoc ytesOrdered By: Diandra Zuniga on 10-24-2022 Lymphocytes/100 WBC (Bld) 13.6 % 19-41 [facility] Blood manual differential co mment interpretation (narrative result)Ordered By: Diandra Zuniga on 10-24-2022 Manual differential comment Narendra (Bld) [Interp] SCANNED [facility] Blood monocytes/100 leukocyt esOrdered By: Diandra Zuniga on 10-24-2022 Monocytes/100 WBC (Bld) 6.1 % 0-10 [facility] Blood platelet mean volumeOr dered By: Daindra Zuniga on 10-24-2022 Platelet mean volume (Bld) [Entitic vol] 12.3 fL 6.2-12.0 [facility] Determination of erythrocyte mean corpuscular volume (MCV)Ordered By: Diandra Zuniga on 10-24-2022 MCV (RBC) [Entitic vol] 99.8 fL 81-99 [facility] Erythrocyte sedimentation ra teOrdered By: Diandra Zuniga on 10-24-2022 ESR (Bld) [Velocity] 26 mm/h 0-30 [facility] Hematocrit Auto (Bld) [Volum e fraction]Ordered By: Diandra Zuniga on 10-24-2022 Hematocrit (Bld) [Volume fraction] 45.4 % 37-47 [facility] Laboratory - Chemistry and C hemistry - challengeOrdered By: Diandra Zuniga on 10-24-2022 ALP [Catalytic activity/Vol] 158 U/L 45-117 [facility] ALT [Catalytic activity/Vol] 34 U/L 13-56 [facility] CO2 [Moles/Vol] 25.0 mmol/L 21.0-32.0 [facility] Globulin (S) [Mass/Vol] 3.9 g/dL 2.2-4.2 [facility] Magnesium [Mass/Vol] 1.9 mg/dL 1.6-2.6 [facility] Natriuretic peptide B (Bld) [Mass/Vol] 602.2 pg/mL 0-100 [facility] Urea nitrogen/Creatinine [Mass ratio] 11.0 mg/mg 10-20 [facility] Laboratory - Hematology and Cell countsOrdered By: Diandra Zuniga on 10-24-2022 Erythrocyte distribution width (RBC) [Entitic vol] 46.3 fL 35.1-43.9 [facility] Erythrocyte distribution width (RBC) [Ratio] 12.5 % 11.6-14.6 [facility] Immature granulocytes/100 WBC (Bld) 0.400 % 0.0-0.9 [facility] Comment on above: IG% - Immature Granu locytes (promyelocytes, myelocytes and metamyelocytes) > 1% indicates that a LEFT SHIFT is Present. MCH (RBC) [Entitic mass] 33.0 pg 27.0-32.0 [facility] Nucleated RBC/100 WBC (Bld) [Ratio] 0 % 0-5 [facility] MCHC Auto (RBC) [Mass/Vol]Or dered By: Diandra Zuniga on 10-24-2022 MCHC (RBC) [Mass/Vol] 33.0 g/dL 32-36 [facility] No Panel InformationOrdered By: Diandra Zuniga on 10-24-2022 Estimated GFR (MDRD) Amer 116 mL/min >60 [facility] Comment on above: GFR Calc Estimated GFR (MDRD) Non-Af Amer 96 mL/min >60 [facility] Comment on above: Non- GFR Calc Platelets bldOrdered By: Toshia Zuniga on 10-24-2022 Platelets (Bld) [#/Vol] 308 10*3/uL 150-450 [facility] Serum or plasma C reactive p rotein measurement (mass/volume)Ordered By: Diandra Zuniga on 10-24-2022 CRP [Mass/Vol] 13.70 mg/L 0.0-3.0 [facility] Comment on above: C-Reactive Protein ( CRP) provides useful information for thediagnosis, therapy and monitoring of inflammatory processesand associated diseases. For the evaluation of Relative Riskfor Cardiovascular Disease, a High Sensitivity CRP (HSCRP)should be ordered. Serum or plasma albumin ollie urement (mass/volume)Ordered By: Diandra Zuniga on 10-24-2022 Albumin [Mass/Vol] 3.8 g/dL 3.2-5.0 [facility] Serum or plasma albumin/glob ulin mass ratioOrdered By: Diandra Zuniga on 10-24-2022 Albumin/Globulin [Mass ratio] 1.0 {ratio} 0.9-2.4 [facility] Serum or plasma calcium ollie urement (mass/volume)Ordered By: Diandra Zuniga on 10-24-2022 Calcium [Mass/Vol] 9.3 mg/dL 8.5-10.1 [facility] Serum or plasma creatinine m easurement (mass/volume)Ordered By: Diandra Zuniga on 10-24-2022 Creatinine [Mass/Vol] 0.64 mg/dL 0.55-1.02 [facility] Comment on above: The validity of the calculated GFR & GFRAA in patients over 70 years has not been determined. Clinical correlation is essential. Serum or plasma urea nitroge n measurement (mass/volume)Ordered By: Diandra Zuniga on 10-24-2022 Urea nitrogen [Mass/Vol] 7 mg/dL 7-18 [facility] Thin prep Papanicolaou smear with manual screeningOrdered By: Diandraezekiel Zuniga on 10-24-2022 Thin prep Papanicolaou smear with manual screening 33 U/L 1537 [facility] Thin prep Papanicolaou smear with manual screening 10 5-15 [facility] Absolute lymphocyte counton 12-04-2021 Lymphocytes Auto (Unsp spec) [#/Vol] 1.22 10*3/uL 0.83-4.51 [facility] Work Phone: Basophil percentageon 2021 Basophils/100 WBC (Bld) 2.3 % 0-1 [facility] [place] Work Phone: Bilirubin [Mass/Vol] 0.50 mg/dL 0.20-1.00 [facility] Work Phone: Comment on above: For patients on eltr ombopag therapy, use of Dimension [place] TBIL is not recommended. Chloride [Moles/Vol] 105 mmol/L 98-107 [facility] Work Phone: Cholesterol [Mass/Vol] 219 mg/dL <200 [facility] Work Phone: Comment on above: <200 mg/dL Desirable 200-240 mg/dL Borderline >240 mg/dL High Risk Eosinophils/100 WBC (Bld) 4.4 % 0-5 [facility] Work Phone: Glucose [Mass/Vol] 95 mg/dL 74-106 [facility] Work Phone: Neutrophils (Bld) [#/Vol] 2.0 10*3/uL 2.0-7.7 [facility] Work Phone: Neutrophils/100 WBC (Bld) 51.2 % 47-70 [facility] Work Phone: [phone] Potassium [Moles/Vol] 4.9 mmol/L 3.5-5.1 [facility] Work Phone: [phone] Comment on above: Slight Hemolysis, Re sult may be falsely increased. Protein [Mass/Vol] 7.2 g/dL 6.4-8.2 [facility] Work Phone: Sodium [Moles/Vol] 140 mmol/L 136-145 [facility] Work Phone: [phone] Triglyceride [Mass/Vol] 84 mg/dL <199 [facility] Work Phone: [phone] Comment on above: The drugs N-Acetylcy steine and Metamizole may falsely depress this assay.Serum Triglycerides Reference Interval Normal <150 mg/dL Borderline high 150 - 199 mg/dL High 200 - 499 mg/dL Very High > or = 500 mg/dL WBC (Bld) [#/Vol] 3.9 10*3/uL 4.4-11.0 [facility] Work Phone: Blood erythrocytes count (nu mber/volume)on 12-04-2021 RBC (Bld) [#/Vol] 4.35 10*6/uL 4.2-5.4 [facility] Work Phone: Blood hemoglobin measurement (mass/volume)on 12-04-2021 Hemoglobin (Bld) [Mass/Vol] 14.7 g/dL 12.0-15.0 [facility] Work Phone: Blood lymphocytes/100 leukoc yteson 12-04-2021 Lymphocytes/100 WBC (Bld) 31.5 % 19-41 [facility] Work Phone: Blood monocytes/100 leukocyt eson 12-04-2021 Monocytes/100 WBC (Bld) 10.3 % 0-10 [facility] Work Phone: [phone] Blood platelet mean volumeon 12-04-2021 Platelet mean volume (Bld) [Entitic vol] 11.5 fL 6.2-12.0 [facility] Work Phone: [phone] Determination of erythrocyte mean corpuscular volume (MCV)on 12-04-2021 MCV (RBC) [Entitic vol] 104.6 fL 81-99 [facility] Work Phone: [phone] Hematocrit Auto (Bld) [Volum e fraction]on 12-04-2021 Hematocrit (Bld) [Volume fraction] 45.5 % 37-47 [facility] Work Phone: [phone] Laboratory - Chemistry and C hemistry - challengeon 12-04-2021 ALP [Catalytic activity/Vol] 138 U/L 45-117 [facility] Work Phone: [phone] ALT [Catalytic activity/Vol] 25 U/L 13-56 [facility] Work Phone: [phone] CO2 [Moles/Vol] 24.0 mmol/L 21.0-32.0 [facility] Work Phone: [phone] Globulin (S) [Mass/Vol] 3.6 g/dL 2.2-4.2 [facility] Work Phone: [phone] Urea nitrogen/Creatinine [Mass ratio] 13.9 mg/mg 10-20 [facility] Work Phone: [phone] Laboratory - Hematology and Cell countson 12-04-2021 Erythrocyte distribution width (RBC) [Entitic vol] 52.7 fL 35.1-43.9 [facility] Work Phone: [phone] Erythrocyte distribution width (RBC) [Ratio] 13.6 % 11.6-14.6 [facility] Work Phone: [phone] Immature granulocytes/100 WBC (Bld) 0.300 % 0.0-0.9 [facility] Work Phone: [phone] Comment on above: IG% - Immature Granu locytes (promyelocytes, myelocytes and metamyelocytes) > 1% indicates that a LEFT SHIFT is Present. MCH (RBC) [Entitic mass] 33.8 pg 27.0-32.0 [facility] Work Phone: Nucleated RBC/100 WBC (Bld) [Ratio] 0 % 0-5 [facility] Work Phone: [phone] MCHC Auto (RBC) [Mass/Vol]on 12-04-2021 MCHC (RBC) [Mass/Vol] 32.3 g/dL 32-36 [facility] Work Phone: No Panel Informationon 12-04 Estimated GFR (MDRD) Amer 101 mL/min >60 [facility] Work Phone: Comment on above: GFR Calc Estimated GFR (MDRD) Non-Af Amer 84 mL/min >60 [facility] Work Phone: Comment on above: Non- GFR Calc Platelets bldon 12-04-2021 Platelets (Bld) [#/Vol] 435 10*3/uL 150-450 [facility] Work Phone: [phone] Serum or plasma albumin ollie urement (mass/volume)on 12-04-2021 Albumin [Mass/Vol] 3.6 g/dL 3.2-5.0 [facility] Work Phone: Serum or plasma albumin/glob ulin mass ratioon 12-04-2021 Albumin/Globulin [Mass ratio] 1.0 {ratio} 0.9-2.4 [facility] Work Phone: [phone] Serum or plasma calcium ollie urement (mass/volume)on 12-04-2021 Calcium [Mass/Vol] 9.2 mg/dL 8.5-10.1 [facility] Work Phone: [phone] Serum or plasma cholesterol in HDL measurement (mass/volume)on 12-04-2021 Cholesterol in HDL [Mass/Vol] 96 mg/dL >40 [facility] Work Phone: Comment on above: The drugs N-Acetylcy steine and Metamizole may falsely depress this assay. Reference Range HDL <40 mg/dL Low HDL Cholesterol HDL >or= 60 mg/dL High HDL Cholesterol Serum or plasma cholesterol in VLDL measurement (mass/volume)on 12-04-2021 Cholesterol in VLDL [Mass/Vol] 17 mg/dL 5-40 [facility] Work Phone: Serum or plasma creatinine m easurement (mass/volume)on 12-04-2021 Creatinine [Mass/Vol] 0.72 mg/dL 0.55-1.02 [facility] Work Phone: Comment on above: The validity of the calculated GFR & GFRAA in patients over 70 years has not been determined. Clinical correlation is essential. Serum or plasma low density lipoprotein (LDL) cholesterol measurement (mass/volume)on 12-04-2021 Cholesterol in LDL [Mass/Vol] 106 mg/dL 0-130 [facility] Work Phone: Serum or plasma urea nitroge n measurement (mass/volume)on 12-04-2021 Urea nitrogen [Mass/Vol] 10 mg/dL 7-18 [facility] Work Phone: Thin prep Papanicolaou smear with manual screeningon 12-04-2021 Thin prep Papanicolaou smear with manual screening 29 U/L 15-37 [facility] Work Phone: Comment on above: Slight Hemolysis, Re sult may be falsely increased. Thin prep Papanicolaou smear with manual screening 11 5-15 [facility] Work Phone: ALANNAH SCREENING [facility] 09-29 [facility] PROGRESSon 08-11-2019 PROGRESS HNO ID: [id number] Author: Vanessa Chaidez [facility] Service: ? Author Type: Physician Type: Progress Notes Filed: 08/11/2019 10:18 AM Note Text: AMBULATORY TELEPHONE VISIT Criselda Storm has consented to this telephone encounter. Persons Present: patient Criselda Storm is a 73 year old female who presents for follow up of her breast cancer. 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 She did well until diagnostic mammogram in [facility] showed a new left 1.5 cm mass; biopsy on June 09 showed poorly differentiated ductal adenocarcinoma with indeterminate LVI and triple negative status. She has met with Dr. Sotelo (surgeon) and then with Dr. Starks (oncologist). Staging studies confirmed Clinical Stage I triple negative disease. She has had 4 cycles of dose dense A/C as neoadjuvant chemotherapy, followed by 10 of 12 planned weekly taxol treatment. She then was hospitalized with dehydration and developed lung infiltrates, marked elevation of the LFTS; she was eventually treated with steroids managed at a rehab and presently doing ok. She had a left breast lumpectomy, SLN bx by Dr. Wilkes. There was no residual cancer in the specimens. She then had XRT with Dr. Grewal, completed early May 2015. She did develop a compression fracture of the lumbar spine and is doing well now. She presents today for follow up. She is feeling well without complaints. 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 ACTIVE PROBLEM LIST Breast Cancer of Upper-Inner Quadrant of Left Female Breast (Hcc) PAST SURGICAL HISTORY PAST SURGICAL HISTORY Procedure Laterality Date - BREAST LUMPECTOMY HX ? ? - CATARACT EXTRACTION HX Right 2013 - INTRAOP SENTINEL LYMPH ID W/DYE NJX ? ? - PAST SURGICAL HISTORY OF Left 2010 ? conor in left leg from fracture - TONSILLECTOMY HX ? ? SOCIAL HISTORY Social History ?; 3 children Tobacco Use - Smoking status: Former Smoker ? ? Years: 40.00 ? ? Types: Cigarettes ? ? Start date: 1976 ? ? Last attempt to quit: 2017 ? ? Years since quittin.9 - Smokeless tobacco: Never Used - Tobacco comment: 3 cigarettes/day Substance Use Topics - Alcohol use: Yes ? ? Alcohol/week: 0.0 standard drinks ? ? Comment: social - Drug use: No ? Review of Systems Constitutional: Negative. HENT: unremarkable Respiratory: no issues; no longer wheezing Cardiovascular: Negative. Gastrointestinal: Negative. Genitourinary: Negative. Skin: Negative. Neurological: Negative. Hematological: Negative. Psychiatric/Behaviora l: Negative. Still with some back pain, especially in winter ? ? ? CURRENT MEDICATIONS No current outpatient medications on file. ? No current facility-administered medications for this visit. ALLERGIES No Known Allergies ?Physician: Rachna Acosta MD; ? ? Physical Exam done by direction via phone Constitutional: She is oriented to person, place, and time. She appears well-developed and well-nourished. Neck: Neck supple. Cardiovascular: Normal rate, regular rhythm, normal heart sounds and intact distal pulses. Pulmonary/Chest: Effort normal. Right breast exhibits no inverted nipple, no mass, no nipple discharge, no skin change and no tenderness. Left breast exhibits no inverted nipple, no mass, no nipple discharge, no skin change and no tenderness. Breasts are symmetrical. Abdominal: Soft. Bowel sounds are normal. Musculoskeletal: Normal range of motion. Neurological: She is alert and oriented to person, place, and time. Skin: Skin is warm and dry. Psychiatric: She has a normal mood and affect. Nursing note and vitals reviewed. ? ? ASSESSMENT/PLAN: 1. Malignant neoplasm of upper-inner quadrant of left breast in female, estrogen receptor negative (HCC) - ICD9: 174.2, V86.1, ICD10: C50.212, Z17.1----this is ypStage 0, ELBA at 5 years; See in 6 months, mammogram is pending; have annual follow up with Dr. Acosta 2. Remote history of right breast cancer, ELBA; DCIS ? ? Normal [facility] CRISELDA STORM ([id number]) 1945 F Date Time Provider Department 02/06/19 10:45 AM VANESSA CHAMPAGNE [facility] During your visit today, we recorded the following information about you: Temperature Pulse Blood pressure Weight 97 degrees 81/minute 152/93 64 kg Height 1.651 m Vanessa Champagne MD 02/06/2019 11:01 AM Signed Criselda Storm is a 73 year old female who presents for follow up of her breast cancer. 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 She did well until diagnostic mammogram in [facility] showed a new left 1.5 cm mass; biopsy on June 09 showed poorly differentiated ductal adenocarcinoma with indeterminate LVI and triple negative status. She has met with Dr. Sotelo (surgeon) and then with Dr. Starks (oncologist). Staging studies confirmed Clinical Stage I triple negative disease. She has had 4 cycles of dose dense A/C as neoadjuvant chemotherapy, followed by 10 of 12 planned weekly taxol treatment. She then was hospitalized with dehydration and developed lung infiltrates, marked elevation of the LFTS; she was eventually treated with steroids managed at a rehab and presently doing ok. She had a left breast lumpectomy, SLN bx by Dr. Wilkes. There was no residual cancer in the specimens. She then had XRT with Dr. Grewal, completed early May 2015. She did develop a compression fracture of the lumbar spine and is doing well now. She presents today for follow up. She is feeling well without complaints. She is still taking exercise classes. She still has some neuropathy in her hands, it does not interfere with function, but this is improving. Her feet get numb when she is on them a lot but this is also better. . ACTIVE PROBLEM LIST Breast Cancer of Upper-Inner Quadrant of Left Female Breast (Hcc) PAST SURGICAL HISTORY Procedure Laterality Date - BREAST LUMPECTOMY HX - CATARACT EXTRACTION HX Right 2013 - INTRAOP SENTINEL LYMPH ID W/DYE NJX - PAST SURGICAL HISTORY OF Left 2010 conor in left leg from fracture - TONSILLECTOMY HX Social History Tobacco Use - Smoking status: Former Smoker Years: 40.00 Types: Cigarettes Start date: 1976 Last attempt to quit: 2017 Years since quittin.9 - Smokeless tobacco: Never Used - Tobacco comment: 3 cigarettes/day Substance Use Topics - Alcohol use: Yes Alcohol/week: 0.0 standard drinks Comment: social - Drug use: No Review of Systems Constitutional: Negative. HENT: unremarkable Respiratory: no issues; no longer wheezing Cardiovascular: Negative. Gastrointestinal: Negative. Genitourinary: Negative. Skin: Negative. Neurological: Negative. Hematological: Negative. Psychiatric/Behaviora l: Negative. No current outpatient medications on file. No current facility-administered medications for this visit. ALLERGIES No Known Allergies Physical Exam Constitutional: She is oriented to person, place, and time. She appears well-developed and well-nourished. Neck: Neck supple. Cardiovascular: Normal rate, regular rhythm, normal heart sounds and intact distal pulses. Pulmonary/Chest: Effort normal. Right breast exhibits no inverted nipple, no mass, no nipple discharge, no skin change and no tenderness. Left breast exhibits no inverted nipple, no mass, no nipple discharge, no skin change and no tenderness. Breasts are symmetrical. Abdominal: Soft. Bowel sounds are normal. Musculoskeletal: Normal range of motion. Neurological: She is alert and oriented to person, place, and time. Skin: Skin is warm and dry. Psychiatric: She has a normal mood and affect. Nursing note and vitals reviewed. ASSESSMENT/PLAN: 1. Malignant neoplasm of upper-inner quadrant of left breast in female, estrogen receptor negative (HCC) - ICD9: 174.2, V86.1, ICD10: C50.212, Z17.1----this is ypStage 0 See in 6 months, mammogram done 07/07/2018 nl 2. Remote history of right breast cancer, ELBA Referring Provider: SELF [[id number]] Allergies As of Date: 02/06/2019 (No Known Allergies) Date Reviewed: 02/06/2019 Reviewed by: Mimi Denton) JOSE ANGEL Lara - Fully Assessed Reason for Visit: F/U 6 months [1177] Primary Visit Diagnosis:Malignant neoplasm of upper-inner quadrant of left breast in female, estrogen receptor negative (HCC) [C50.212, Z17.1] Disposition: Return in about 6 months (around 08/08/2019). Follow-up and Disposition History Recorded Problem List As Of Date 02/06/2019 Noted Resolved Breast cancer of upper-inner quadrant of left f*03/01/2015 More... Encounter Status:Closed by VANESSA CHAMPAGNE MD on 02/06/19 [facility] PROGRESSon 02-06-2019 PROGRESS HNO ID: [id number] Author: Vanessa Champagne Service: ? Author Type: Physician Type: Progress Notes Filed: 02/06/2019 11:01 AM Note Text: Criselda Storm is a 73 year old female who presents for follow up of her breast cancer. 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 She did well until diagnostic mammogram in [facility] showed a new left 1.5 cm mass; biopsy on June 09 showed poorly differentiated ductal adenocarcinoma with indeterminate LVI and triple negative status. She has met with Dr. Sotelo (surgeon) and then with Dr. Starks (oncologist). Staging studies confirmed Clinical Stage I triple negative disease. She has had 4 cycles of dose dense A/C as neoadjuvant chemotherapy, followed by 10 of 12 planned weekly taxol treatment. She then was hospitalized with dehydration and developed lung infiltrates, marked elevation of the LFTS; she was eventually treated with steroids managed at a rehab and presently doing ok. She had a left breast lumpectomy, SLN bx by Dr. Wilkes. There was no residual cancer in the specimens. She then had XRT with Dr. Grewal, completed early May 2015. She did develop a compression fracture of the lumbar spine and is doing well now. She presents today for follow up. She is feeling well without complaints. She is still taking exercise classes. She still has some neuropathy in her hands, it does not interfere with function, but this is improving. Her feet get numb when she is on them a lot but this is also better. . ACTIVE PROBLEM LIST Breast Cancer of Upper-Inner Quadrant of Left Female Breast (Hcc) PAST SURGICAL HISTORY Procedure Laterality Date - BREAST LUMPECTOMY HX - CATARACT EXTRACTION HX Right 2013 - INTRAOP SENTINEL LYMPH ID W/DYE NJX - PAST SURGICAL HISTORY OF Left 2010 conor in left leg from fracture - TONSILLECTOMY HX Social History Tobacco Use - Smoking status: Former Smoker Years: 40.00 Types: Cigarettes Start date: 1976 Last attempt to quit: 2017 Years since quittin.9 - Smokeless tobacco: Never Used - Tobacco comment: 3 cigarettes/day Substance Use Topics - Alcohol use: Yes Alcohol/week: 0.0 standard drinks Comment: social - Drug use: No Review of Systems Constitutional: Negative. HENT: unremarkable Respiratory: no issues; no longer wheezing Cardiovascular: Negative. Gastrointestinal: Negative. Genitourinary: Negative. Skin: Negative. Neurological: Negative. Hematological: Negative. Psychiatric/Behaviora l: Negative. No current outpatient medications on file. No current facility-administered medications for this visit. ALLERGIES No Known Allergies Physical Exam Constitutional: She is oriented to person, place, and time. She appears well-developed and well-nourished. Neck: Neck supple. Cardiovascular: Normal rate, regular rhythm, normal heart sounds and intact distal pulses. Pulmonary/Chest: Effort normal. Right breast exhibits no inverted nipple, no mass, no nipple discharge, no skin change and no tenderness. Left breast exhibits no inverted nipple, no mass, no nipple discharge, no skin change and no tenderness. Breasts are symmetrical. Abdominal: Soft. Bowel sounds are normal. Musculoskeletal: Normal range of motion. Neurological: She is alert and oriented to person, place, and time. Skin: Skin is warm and dry. Psychiatric: She has a normal mood and affect. Nursing note and vitals reviewed. ASSESSMENT/PLAN: 1. Malignant neoplasm of upper-inner quadrant of left breast in female, estrogen receptor negative (HCC) - ICD9: 174.2, V86.1, ICD10: C50.212, Z17.1----this is ypStage 0 See in 6 months, mammogram done 07/07/2018 nl 2. Remote history of right breast cancer, ELBA Normal [facility] Vital Signs Date Time Vital Sign Value Performing Clinician Facility 11-03-2024 09:02-0400 Body height 162.[address] Rachna Acosta DO Work Phone: [facility] 11-03-2024 09:02-0400 Body mass index (BMI) [Ratio] 19.6 kg/m2 Dr. Rachna Acosta DO Work Phone: [facility] 11-03-2024 09:02-0400 Body weight 52.[address] Rachna Acosta DO Work Phone: [facility] 11-03-2024 09:02-0400 Diastolic blood pressure 59 mm[Hg] Dr. Rachna Acosta DO Work Phone: [facility] 11-03-2024 09:02-0400 Heart rate 59 /min Dr. Rachna Acosta DO Work Phone: [facility] 11-03-2024 09:02-0400 Respiratory rate 16 /min Dr. Rachna Acosta DO Work Phone: [facility] 11-03-2024 09:02-0400 Systolic blood pressure 99 mm[Hg] Dr. Rachna Acosta DO Work Phone: [facility] 08-18-2024 09:29-0400 Body height 162.[address] Rachna Acosta DO Work Phone: [facility] 08-18-2024 09:29-0400 Body mass index (BMI) [Ratio] 19.6 kg/m2 Dr. Rachna Acosta DO Work Phone: [facility] 08-18-2024 09:29-0400 Body weight 52.[address] Rachna Acosta DO Work Phone: [facility] 08-18-2024 09:29-0400 Diastolic blood pressure 63 mm[Hg] Dr. Rachna Acosta DO Work Phone: [facility] 08-18-2024 09:29-0400 Heart rate 76 /min Dr. Rachna Acosta DO Work Phone: [facility] 08-18-2024 09:29-0400 Respiratory rate 16 /min Dr. Rachna Acosta DO Work Phone: [facility] 08-18-2024 09:29-0400 Systolic blood pressure 100 mm[Hg] Dr. Rachna Acosta DO Work Phone: [facility] 08-14-2024 08:49-0400 Diastolic blood pressure 69 mm[Hg] Dr. Rachna Acosta DO Work Phone: [facility] 08-14-2024 08:49-0400 Heart rate 80 /min Dr. Rachna Acosta DO Work Phone: [facility] 08-14-2024 08:49-0400 Respiratory rate 18 /min Dr. Rachna Acosta DO Work Phone: [facility] 08-14-2024 08:49-0400 Systolic blood pressure 126 mm[Hg] Dr. Rachna Acosta DO Work Phone: [facility] 07-16-2024 12:18-0400 Diastolic blood pressure 56 mm[Hg] Emeterio Malcolm DO Work Phone: [facility] 07-16-2024 12:18-0400 Systolic blood pressure 98 mm[Hg] Emeterio Malcolm DO Work Phone: [facility] 07-16-2024 12:13-0400 Body weight 51.26 kg Emeterio Malcolm DO Work Phone: [facility] 07-16-2024 12:13-0400 Heart rate 61 /min Emeterio Malcolm DO Work Phone: [facility] 06-03-2024 09:08-0400 Diastolic blood pressure 64 mm[Hg] Dr. Rachna Acosta DO Work Phone: [facility] 06-03-2024 09:08-0400 Heart rate 84 /min Dr. Rachna Acosta DO Work Phone: [facility] 06-03-2024 09:08-0400 Respiratory rate 18 /min Dr. Rachna Acosta DO Work Phone: [facility] 06-03-2024 09:08-0400 Systolic blood pressure 115 mm[Hg] Dr. Rachna Acosta DO Work Phone: [facility] 06-03-2024 08:42-0400 Body temperature 97.5 [degF] Dr. Rachna Acosta DO Work Phone: [facility] 05-31-2024 18:57-0400 Body temperature 98.2 [degF] Dr. Rachna Acosta DO Work Phone: [facility] 05-31-2024 18:57-0400 Diastolic blood pressure 75 mm[Hg] Dr. Rachna Acosta DO Work Phone: [facility] 05-31-2024 18:57-0400 Heart rate 77 /min Dr. Rachna Acosta DO Work Phone: [facility] 05-31-2024 18:57-0400 Respiratory rate 18 /min Dr. Rachna Acosta DO Work Phone: [facility] 05-31-2024 18:57-0400 SaO2% (BldA) [Mass fraction] 92 % Dr. Rachna Acosta DO Work Phone: [facility] 05-31-2024 18:57-0400 Systolic blood pressure 123 mm[Hg] Dr. Rachna Acosta DO Work Phone: [facility] 05-31-2024 16:16-0400 Body height 162.[address] Rachna Acosta DO Work Phone: [facility] 05-31-2024 16:16-0400 Body mass index (BMI) [Ratio] 20.9 kg/m2 Dr. Rachna Acosta DO Work Phone: [facility] [facility] 05-31-2024 16:16-0400 Body weight 55.[address] Rachna Acosta DO Work Phone: [facility] 03-06-2024 08:32-0500 Body mass index (BMI) [Ratio] 19.7 kg/m2 Dr. Rachna Acosta DO Work Phone: [facility] 03-06-2024 08:32-0500 Body weight 52.[address] Rachna Acosta DO Work Phone: [facility] 03-06-2024 08:32-0500 Diastolic blood pressure 63 mm[Hg] Dr. Rachna Acosta DO Work Phone: [facility] 03-06-2024 08:32-0500 Heart rate 68 /min Dr. Rachna Acosta DO Work Phone: [facility] 03-06-2024 08:32-0500 Respiratory rate 18 /min Dr. Rachna Acosta DO Work Phone: [facility] 03-06-2024 08:32-0500 SaO2% (BldA) [Mass fraction] 96 % Dr. Rachna Acosta DO Work Phone: [facility] 03-06-2024 08:32-0500 Systolic blood pressure 105 mm[Hg] Dr. Rachna Acosta DO Work Phone: [facility] 10-03-2023 11:58-0400 Body height 165.1 cm Luis F Lawrence AGENTS' RECORDS CLERK.VICE PRESIDENT LENDING Work Phone: [facility] 10-03-2023 11:58-0400 Body mass index (BMI) [Ratio] 18.8 kg/m2 Luis F Lawrence AGENTS' RECORDS CLERK.VICE PRESIDENT LENDING Work Phone: [facility] 10-03-2023 11:58-0400 Body weight 51.26 kg Luis F Lawrence AGENTS' RECORDS CLERK.VICE PRESIDENT LENDING Work Phone: [facility] 10-03-2023 11:58-0400 Diastolic blood pressure 52 mm[Hg] Luis F Lawrence AGENTS' RECORDS CLERK.VICE PRESIDENT LENDING Work Phone: [facility] 10-03-2023 11:58-0400 Heart rate 58 /min Luis F Lawrence AGENTS' RECORDS CLERK.VICE PRESIDENT LENDING Work Phone: [facility] 10-03-2023 11:58-0400 Systolic blood pressure 98 mm[Hg] Luis F Lawrence AGENTS' RECORDS CLERK.VICE PRESIDENT LENDING Work Phone: [facility] 06-26-2023 15:49-0400 Body height 161.3 cm Tisha Van AGENTS' RECORDS CLERK.VICE PRESIDENT LENDING Work Phone: [facility] 06-26-2023 15:49-0400 Body mass index (BMI) [Ratio] 21.8 kg/m2 Tisha Van AGENTS' RECORDS CLERK.VICE PRESIDENT LENDING Work Phone: [facility] 06-26-2023 15:49-0400 Body weight 56.7 kg Tisha Van AGENTS' RECORDS CLERK.VICE PRESIDENT LENDING Work Phone: [facility] 06-26-2023 15:49-0400 Diastolic blood pressure 68 mm[Hg] Tisha Van AGENTS' RECORDS CLERK.VICE PRESIDENT LENDING Work Phone: [facility] 06-26-2023 15:49-0400 Heart rate 60 /min Tisha Van AGENTS' RECORDS CLERK.VICE PRESIDENT LENDING Work Phone: [facility] 06-26-2023 15:49-0400 Systolic blood pressure 130 mm[Hg] Tisha Van AGENTS' RECORDS CLERK.VICE PRESIDENT LENDING Work Phone: [facility] 04-09-2023 10:22-0500 Body height 163.8 cm Bear Rodarte MD Work Phone: [facility] 04-09-2023 10:22-0500 Body weight 61.24 kg Bear Rodarte MD Work Phone: [facility] 04-09-2023 10:22-0500 Diastolic blood pressure 62 mm[Hg] Bear Rodarte MD Work Phone: [facility] 04-09-2023 10:22-0500 Heart rate 50 /min Bear Rodarte MD Work Phone: [facility] 04-09-2023 10:22-0500 Systolic blood pressure 100 mm[Hg] Bear Rodarte MD Work Phone: [facility] 03-01-2023 12:49-0500 Body height 162.[address] Rachna Acosta Work Phone: [facility] 03-01-2023 12:49-0500 Body mass index (BMI) [Ratio] 22.6 kg/m2 Dr. Rachna Acosta Work Phone: [facility] 03-01-2023 12:49-0500 Body weight 59.[address] Rachna Acosta Work Phone: [facility] 03-01-2023 12:49-0500 Diastolic blood pressure 79 mm[Hg] Dr. Rachna Acosta Work Phone: [facility] 03-01-2023 12:49-0500 Heart rate 99 /min Dr. Rachna Acosta Work Phone: [facility] 03-01-2023 12:49-0500 Respiratory rate 18 /min Dr. Rachna Acosta Work Phone: [facility] 03-01-2023 12:49-0500 SaO2% (BldA) [Mass fraction] 98 % Dr. Rachna Acosta Work Phone: [facility] 03-01-2023 12:49-0500 Systolic blood pressure 116 mm[Hg] Dr. Rachna Acosta Work Phone: [facility] 02-21-2023 11:21-0500 Body height 162.[address] Rachna Acosta Work Phone: [facility] 02-21-2023 11:21-0500 Body weight 60.[address] Rachna Acosta Work Phone: [facility] 02-20-2023 09:57-0500 Body mass index (BMI) [Ratio] 22.8 kg/m2 Dr. Rachna Acosta Work Phone: [facility] 01-15-2023 07:29-0500 Body height 162.[address] Rachna Acosta Work Phone: [facility] 01-15-2023 07:29-0500 Body weight 58.[address] Rachna Acosta Work Phone: [facility] 01-14-2023 08:38-0500 Body mass index (BMI) [Ratio] 22.1 kg/m2 Dr. Rachna Acosta Work Phone: [facility] 12-26-2022 12:22-0500 Body temperature 97 [degF] Dr. Rachna Acosta Work Phone: [facility] 12-26-2022 12:22-0500 Diastolic blood pressure 88 mm[Hg] Dr. Rachna Acosta Work Phone: [facility] 12-26-2022 12:22-0500 Heart rate 83 /min Dr. Rachna Acosta Work Phone: [facility] 12-26-2022 12:22-0500 Respiratory rate 18 /min Dr. Rachna Acosta Work Phone: [facility] 12-26-2022 12:22-0500 SaO2% (BldA) [Mass fraction] 99 % Dr. Rachna Acosta Work Phone: [facility] 12-26-2022 12:22-0500 Systolic blood pressure 143 mm[Hg] Dr. Rachna Acosta Work Phone: [facility] 12-20-2022 11:43-0400 Body height 162.[address] Rachna Acosta Work Phone: [facility] 12-20-2022 11:34-0400 Body mass index (BMI) [Ratio] 22.1 kg/m2 Dr. Rachna Acosta Work Phone: [facility] 12-20-2022 11:34-0400 Body weight 58.[address] Rachna Acosta Work Phone: [facility] 12-20-2022 11:34-0400 Diastolic blood pressure 84 mm[Hg] Dr. Rachna Acosta Work Phone: [facility] 12-20-2022 11:34-0400 Heart rate 114 /min Dr. Rachna Acosta Work Phone: [facility] 12-20-2022 11:34-0400 Respiratory rate 18 /min Dr. Rachna Acosta Work Phone: [facility] 12-20-2022 11:34-0400 Systolic blood pressure 117 mm[Hg] Dr. Rachna Acosta Work Phone: [facility] 11-27-2022 07:48-0400 Body weight 60.[address] Rachna Acosta Work Phone: [facility] 11-26-2022 08:06-0400 Body mass index (BMI) [Ratio] 22.8 kg/m2 Dr. Rachna Acosta Work Phone: [facility] 11-22-2022 13:12-0400 Body mass index (BMI) [Ratio] 22.8 kg/m2 Dr. Rachna Acosta Work Phone: [facility] 11-22-2022 13:12-0400 Body weight 60.[address] Rachna Acosta Work Phone: [facility] 11-22-2022 13:12-0400 Diastolic blood pressure 73 mm[Hg] Dr. Rachna Acosta Work Phone: [facility] 11-22-2022 13:12-0400 Heart rate 102 /min Dr. Rachna Acosta Work Phone: [facility] 11-22-2022 13:12-0400 Respiratory rate 18 /min Dr. Rachna Acosta Work Phone: [facility] 11-22-2022 13:12-0400 SaO2% (BldA) [Mass fraction] 96 % Dr. Rachna Acosta Work Phone: [facility] 11-22-2022 13:12-0400 Systolic blood pressure 107 mm[Hg] Dr. Rachna Acosta Work Phone: [facility] 11-02-2022 10:04-0400 Body height 162.[address] Rachna Acosta Work Phone: [facility] 11-02-2022 10:04-0400 Body mass index (BMI) [Ratio] 23.5 kg/m2 Dr. Rachna Acosta Work Phone: [facility] 11-02-2022 10:04-0400 Body weight 62.[address] Rachna Acosta Work Phone: [facility] 11-02-2022 10:04-0400 Diastolic blood pressure 89 mm[Hg] Dr. Rachna Acosta Work Phone: [facility] 11-02-2022 10:04-0400 Heart rate 148 /min Dr. Rachna Acosta Work Phone: [facility] 11-02-2022 10:04-0400 Respiratory rate 20 /min Dr. Rachna Acosta Work Phone: [facility] 11-02-2022 10:04-0400 Systolic blood pressure 114 mm[Hg] Dr. Rachna Acosta Work Phone: [facility] 06-19-2022 13:54-0400 Body height 165.1 cm Abhishek Andrews MD Work Phone: [facility] 06-19-2022 13:54-0400 Body mass index (BMI) [Ratio] 23.7 kg/m2 Abhishek Andrews MD Work Phone: [facility] 06-19-2022 13:54-0400 Body temperature 98.01 [degF] Abhishek Andrews MD Work Phone: [facility] 06-19-2022 13:54-0400 Body weight 64.59 kg Abhishek Andrews MD Work Phone: [facility] Encounters Encounter Date Encounter Type Care Provider Facility Start: 12-25-2024 End: 12-25-2024 ambulatory Rachna Acosta Facility:[facility] Start: 11-03-2024 End: 11-03-[address] Rachna Acosta DO Work Phone: -Radiology [facility] Start: 11-03-2024 End: 11-03-2024 Patient encounter procedure Cinthia Kim MEDICAL MANAGER-C -Radiology [facility] Work Phone: Start: 11-03-2024 End: 11-03-2024 Patient encounter procedure Cinthia Kim MEDICAL MANAGER-C -[facility] Work Phone: Start: 11-03-2024 End: 11-03-[address] Rachna Acosta DO Work Phone: -[facility] Start: 11-03-2024 End: 11-03-2024 ambulatory Cinthia Kim NP Facility:[facility] Start: 10-01-2024 End: 10-01-[address] Rachna Acosta DO Work Phone: -Laboratory Start: 10-01-2024 End: 10-01-2024 Patient encounter procedure Cinthia Huntley Julio MEDICAL MANAGER-C -Laboratory Work Phone: Start: 10-01-2024 End: 10-01-2024 ambulatory Cinthia Kim MEDICAL MANAGER Facility:[facility] Start: 09-01-2024 End: 09-01-[address] Rachna Acosta DO Work Phone: -Radiology [facility] Start: 09-01-2024 End: 09-01-2024 Patient encounter procedure Cinthia Huntley Julio MEDICAL MANAGER-C -Radiology [facility] Work Phone: Start: 09-01-2024 End: 09-01-2024 ambulatory Cinthia Kim MEDICAL MANAGER Facility:[facility] Start: 08-18-2024 End: 08-18-[address] Rachna Acosta DO Work Phone: -Radiology [facility] Start: 08-18-2024 End: 08-18-2024 Patient encounter procedure Cinthia Huntley Julio MEDICAL MANAGER-C -Radiology [facility] Work Phone: Start: 08-18-2024 End: 08-18-2024 Patient encounter procedure Cinthia Huntley Julio MEDICAL MANAGER-C -[facility] Work Phone: Start: 08-18-2024 End: 08-18-[address] Rachna Acosta DO Work Phone: -[facility] Start: 08-18-2024 End: 08-18-2024 ambulatory Cinthia Kim MEDICAL MANAGER Facility:[facility] Start: 08-14-2024 End: 08-14-[address] Rachna Acosta DO Work Phone: -Ultrasound [facility] Start: 08-14-2024 End: 08-14-[address] Rachna Acosta DO Work Phone: -Ultrasound [facility] Work Phone: Start: 08-14-2024 End: 08-14-2024 ambulatory Rachna Acosta Facility:[facility] Start: 08-10-2024 ambulatory Rachna Acosta Facility:[facility] Start: 07-29-2024 End: 08-04-2024 Telephone encounter Emeterio Malcolm DO Work Phone: [facility] Cardiovascular Thoracic Surgery - [place] Comment on above: Results Start: 07-22-2024 End: 07-22-2024 Subsequent hospital visit by physician Emeterio Malcolm DO Work Phone: [facility] Comment on above: Recurrent pleural ef fusion Start: 07-22-2024 End: 07-22-2024 ambulatory EMETERIO MALCOLM [facility] Start: 07-16-2024 End: 07-16-2024 Office consultation new/estab patient 60 min Emeterio Malcolm DO Work Phone: [facility] Cardiovascular Thoracic Surgery - [place] Comment on above: Pleural effusion on left (Primary Dx); Chronic combined systolic (congestive) and diastolic (congestive) heart failure (HCC); Atrial fibrillation, unspecified type (HCC) Start: 07-16-2024 End: 07-16-2024 ambulatory EMETERIO MALCOLM [facility] Start: 06-24-2024 End: 06-24-[address] Rachna Acosta DO Work Phone: [facility] Work Phone: Start: 06-24-2024 End: 06-24-[address] Rachna Acosta DO -Laboratory, [facility] Work Phone: Start: 06-24-2024 End: 06-24-2024 ambulatory Rachna Acosta Facility:[facility] Start: 06-03-2024 ambulatory Amanda Green Facility: [facility] Start: 06-03-2024 Non-patient / Non-visit Amanda mcdowell NP-C -[facility] Start: 06-03-2024 End: 06-03-[address] Rachna Acosta DO -Ultrasound, [facility] Work Phone: Start: 06-03-2024 End: 06-03-2024 ambulatory Rachna Acosta Facility:[facility] Start: 05-31-2024 End: 05-31-2024 Emergency department patient visit Dr. Rachna Acsota DO Work Phone: -Emergency Department Work Phone: Start: 04-30-2024 End: 04-30-2024 ambulatory RACHNA ACOSTA Facility:[facility] Start: 04-30-2024 End: 04-30-2024 Subsequent hospital visit by physician Screen Mammo [facility] Mammogram Start: 03-26-2024 End: 03-26-2024 Patient encounter procedure Faith DUMONT -[facility] Work Phone: Start: 03-26-2024 End: 03-26-2024 ambulatory Rachna Acosta Facility:[facility] Start: 03-23-2024 End: 03-23-2024 Patient encounter procedure Hazel DUMONT -Laboratory Work Phone: Start: 03-23-2024 End: 03-23-2024 ambulatory Rachna Acosta Facility:[facility] Start: 03-19-2024 ambulatory Marcelo Berry Facility:[facility] Start: 03-19-2024 Non-patient / Non-visit Dr. Justin COLLADO -[facility] Start: 03-19-2024 End: 03-19-2024 Patient encounter procedure Hazel DUMONT -Cardiovascular Services Work Phone: Start: 03-19-2024 End: 03-19-2024 ambulatory Rachna Acosta Facility:[facility] Start: 03-17-2024 End: 03-17-[address] Rachna Acosta DO -Ultrasound, [facility] Work Phone: Start: 03-17-2024 End: 03-17-2024 ambulatory Rachna Acosta Facility:[facility] Start: 03-12-2024 ambulatory Rachna Acosta Facility:[facility] Start: 03-09-2024 End: 03-09-[address] Rachna Acosta DO -Cat Scan, [facility] Work Phone: Start: 03-09-2024 End: 03-09-2024 ambulatory Rachna Acosta Facility:[facility] Start: 03-06-2024 End: 03-06-2024 Patient encounter procedure Hazel Denson [place] -[facility] Work Phone: Start: 03-06-2024 End: 03-06-2024 ambulatory Rachna Acosta Facility:[facility] Start: 10-03-2023 End: 10-03-2023 Patient encounter procedure Luis F Lawrence AGENTS' RECORDS CLERK.VICE PRESIDENT LENDING Work Phone: Cardiology Comment on above: Typical atrial flutt er (HCC) (Primary Dx); Persistent atrial fibrillation (HCC); On apixaban therapy; Mixed hyperlipidemia Start: 10-03-2023 End: 10-04-2023 ambulatory LUIS F BRAVO Facility:[facility] Start: 09-16-2023 Patient encounter procedure Bear Rodarte MD Work Phone: [facility] Start: 09-16-2023 Recurring Plan Bear reddy MD Work Phone: [facility] Start: 09-06-2023 Patient encounter procedure Bear Rodarte MD Work Phone: [facility] Start: 09-06-2023 Recurring Plan Bear reddy MD Work Phone: [facility] Start: 09-03-2023 E-mail encounter fro m caregiver Tish Dougherty APRN.VICE PRESIDENT LENDING Work Phone: [facility] Start: 09-03-2023 Follow-up encounter Tish Dougherty APRN.VICE PRESIDENT LENDING Work Phone: [facility] Comment on above: Actionable Finding F ollow up Start: 08-29-2023 Patient encounter procedure Bear Rodarte MD Work Phone: [facility] Start: 08-29-2023 Recurring Plan Bear reddy MD Work Phone: [facility] Start: 08-20-2023 Patient encounter procedure Bear Rodarte MD Work Phone: [facility] Start: 08-20-2023 Recurring Plan Bear reddy MD Work Phone: [facility] Start: 08-16-2023 Patient encounter procedure Bear Rodarte MD Work Phone: [facility] Start: 08-16-2023 Recurring Plan Bear reddy MD Work Phone: [facility] Start: 08-07-2023 Patient encounter procedure Bear Rodarte MD Work Phone: [facility] Start: 08-07-2023 Recurring Plan Bear reddy MD Work Phone: [facility] Start: 08-02-2023 E-mail encounter fro m caregiver Tish Dougherty APRN.VICE PRESIDENT LENDING Work Phone: [facility] Start: 08-02-2023 Follow-up encounter Tish Dougherty APRN.VICE PRESIDENT LENDING Work Phone: [facility] Comment on above: Actionable Finding f ollow up Start: 08-02-2023 Patient encounter procedure Bear Rodarte MD Work Phone: [facility] Start: 08-02-2023 Recurring Plan Bear reddy MD Work Phone: [facility] Start: 07-26-2023 Patient encounter procedure Bear Rodarte MD Work Phone: [facility] Start: 07-26-2023 Recurring Plan Bear reddy MD Work Phone: [facility] Start: 07-25-2023 ambulatory Carole Kilgore [facility] Start: 07-17-2023 ambulatory Carole Kilgore [facility] Start: 07-17-2023 Patient encounter procedure Bear Rodarte MD Work Phone: [facility] Start: 07-17-2023 Recurring Plan Bear reddy MD Work Phone: [facility] Start: 07-10-2023 ambulatory Deisy Clemente APRN.VICE PRESIDENT LENDING Work Phone: Pulmonary Medicine Comment on above: Lung Nodule Actionab le Findings Outreach Encounter Start: 07-10-2023 Patient encounter procedure Bear Rodarte MD Work Phone: [facility] Start: 07-10-2023 Recurring Plan Bear reddy MD Work Phone: [facility] Start: 07-05-2023 ambulatory Carole Kilgore [facility] Start: 07-04-2023 ambulatory Bear reddy MD Work Phone: Cardiology Comment on above: Transmitter (90 days ) Start: 07-04-2023 Telephone encounter Ani GANNON Comment on above: Follow Up Phone Call (Relate care discharge follow [id number] clear) Start: 07-03-2023 End: 07-03-2023 ambulatory Evette Hall PA-C Work Phone: Pulmonary Medicine Start: 07-02-2023 ambulatory Bear reddy MD Work Phone: Cardiology Comment on above: Patient Education (E PS - PVI/ AFL RFA) Start: 06-26-2023 End: 06-26-2023 Patient encounter procedure Tisha Araujo APRN.VICE PRESIDENT LENDING Work Phone: Cardiology Comment on above: Persistent atrial fi brillation (HCC) (Primary Dx); Nonischemic cardiomyopathy (HCC); On amiodarone therapy Start: 06-26-2023 End: 06-26-2023 Subsequent hospital visit by physician Callie Juarez (I-Stat) Work Phone: Radiology Comment on above: Atrial fibrillation, persistent (HCC) [I48.19] Start: 06-26-2023 End: 06-26-2023 ambulatory BEAR RODARTE Facility:[facility] Start: 06-12-2023 Telephone encounter Bear Rodarte MD Work Phone: Cardiology Comment on above: Procedure (EP: PVI/A FL RFA (offered sooner date)) Start: 05-29-2023 End: 05-29-2023 ambulatory RACHNA ACOSTA Facility:[facility] Start: 05-24-2023 Telephone encounter Bear Rodarte MD Work Phone: Cardiology Comment on above: Procedure (EP: PVI/A FL RFA) Start: 05-14-2023 ambulatory Bear reddy MD Work Phone: [facility] Start: 05-14-2023 Follow-up encounter Bear Rodarte MD Work Phone: Cardiology Comment on above: follow up Start: 05-02-2023 Telephone encounter Bear Rodarte MD Work Phone: Cardiology Start: 05-01-2023 ambulatory Bear reddy MD Work Phone: [facility] Start: 05-01-2023 Follow-up encounter Bear Rodarte MD Work Phone: Cardiology Comment on above: follow up question Start: 04-11-2023 Orders Only Bear reddy MD Work Phone: Cardiology Comment on above: Atrial fibrillation, persistent (HCC) (Primary Dx) Start: 04-09-2023 End: 04-09-2023 Patient encounter procedure Bear Rodarte MD Work Phone: Cardiology Comment on above: Atrial fibrillation, persistent (HCC) (Primary Dx); Dilated cardiomyopathy (HCC) Start: 03-01-2023 End: 03-01-[address] Rachna Acosta Work Phone: [facility] Work Phone: Start: 02-28-2023 End: 02-28-[address] Rachna Acosta Work Phone: [facility] Work Phone: Start: 02-28-2023 End: 02-28-[address] Rachna Acosta Work Phone: [facility]-Laboratory Work Phone: Start: 02-21-2023 Non-patient / Non-visit Dr. Michelle Acosta Work Phone: [facility] Start: 02-21-2023 End: 02-21-2023 Admission to same day surgery center [facility]achna Acosta [facility] Work Phone: Start: 02-21-2023 End: 02-21-[address] Rachna Acosta Work Phone: [facility] Work Phone: Start: 02-14-2023 Non-patient / Non-visit Dr. Michelle Acosta Work Phone: [facility] Start: 01-15-2023 End: 01-15-2023 Admission to same day surgery center Dr. Rachna Acosta [facility] Work Phone: Start: 01-15-2023 End: 01-15-[address] Rachna Acosta Work Phone: [facility] Work Phone: Start: 12-26-2022 End: 12-26-2022 Emergency department patient visit Dr. Rachna Acosta Work Phone: [facility]-Emergency Department Work Phone: Start: 12-20-2022 End: 12-20-[address] Rachna Acosta Work Phone: [facility] Work Phone: Start: 12-20-2022 End: 12-20-[address] Rachna Acosta Work Phone: [facility] Work Phone: Start: 12-03-2022 End: 12-03-[address] Rachna Acosta Work Phone: [facility] Work Phone: Start: 11-27-2022 Non-patient / Non-visit Dr. Michelle Acosta Work Phone: [facility] Start: 11-27-2022 End: 11-27-2022 Admission to same day surgery center Dr. Rachna Acosta Work Phone: [facility] Work Phone: Start: 11-22-2022 End: 11-22-[address] Rachna Acosta Work Phone: [facility] Work Phone: Start: 11-08-2022 Non-patient / Non-visit Dr. Michelle Acosta Work Phone: [facility] Start: 11-08-2022 End: 11-08-[address] Rachna Acosta Work Phone: [facility]-Cardiovascular Services Work Phone: Start: 11-02-2022 End: 11-02-[address] Rachna Acosta Work Phone: [facility] Work Phone: Start: 10-29-2022 End: 10-29-[address] Rachna Acosta Work Phone: [facility] Work Phone: Start: 10-29-2022 End: 10-29-2022 Patient encounter procedure [facility]-Radiology, [facility] Work Phone: Start: 10-25-2022 End: 10-25-2022 ambulatory [facility] Work Phone: Start: 10-25-2022 End: 10-25-2022 Patient encounter procedure [facility]-Cat Scan, [facility] Work Phone: Start: 10-24-2022 End: 10-24-2022 ambulatory [facility] Work Phone: Start: 10-24-2022 End: 10-24-2022 [facility] Work [facility] Start: 10-09-2022 End: 10-09-2022 ambulatory [facility] Work Phone: Start: 10-09-2022 End: 10-09-2022 Patient encounter procedure [facility]-Radiology, [facility] Work Phone: Start: 07-19-2022 End: 07-19-2022 ambulatory [facility] Work Phone: Start: 07-19-2022 End: 07-19-2022 Patient encounter procedure [facility]-Radiology, [facility] Start: 06-21-2022 ambulatory RACHNA ACOSTA [facility] Ambulatory Start: 06-19-2022 End: 06-19-2022 ambulatory ABHISHEK ANDREWS [facility] Ambulato ry Start: 06-19-2022 End: 06-19-2022 Office outpatient visit 15 minutes Abhishek Andrews MD Work Phone: [facility] [place] Comment on above: Sensorineural hearin g loss, bilateral (Primary Dx); Impacted cerumen of right ear; Impaired auditory discrimination, right Start: 12-04-2021 End: 12-04-2021 ambulatory [facility] Work Phone: Start: 12-04-2021 End: 12-04-2021 [facility] Start: 09-29-2021 Documentation procedure Mammog jonh Coordinator [facility] Start: 09-29-2021 Letter encounter Mammography Coordinator [facility] Department Start: 09-29-2021 End: 09-29-2021 Subsequent hospital visit by physician Screen Mammo [facility] W[facility] Mammogram Start: 08-01-2018 Patient encounter procedure VANESSA H REHMUS Facility:[facility] Start: 02-03-2018 End: 02-03-2018 Patient encounter procedure VANESSA H REHMUS Facility:[facility] Start: 12-24-2017 Patient encounter procedure VANESSA H REHMUS Facility:[facility] Start: 07-09-2017 End: 07-09-2017 Patient encounter procedure VANESSA H REHMUS Facility:[facility] Procedures Date Procedure Procedure Detail Performing Clinician Start: 11-03-2024 Radiologic exam ches t [address] Rachna Acosta DO Work Phone: Start: 10-01-20[address] diff[address] e detection Dr. Rachna Acosta DO Work Phone: Start: 10-01-2024 Giardia lamblia anti gen assay Dr. Rachna Acosta DO Work Phone: Start: 10-01-[address] Rachna Acosta DO Work Phone: Start: 10-01-[address] Rachna Acosta DO Work Phone: Start: 10-01-2024 Ova OR parasites identification Dr. Rachna Acosta DO Work Phone: Start: 10-01-2024 X-ray of chest, PA a nd lateral views Dr. Rachna Acosta DO Work Phone: Start: 09-01-2024 X-ray of chest, PA a nd lateral views Dr. Rachna Acosta DO Work Phone: Start: 08-18-2024 X-ray of chest, PA a nd lateral views Dr. Rachna Acosta DO Work Phone: Start: 08-14-2024 Ultrasonic guidance for thoracentesis Dr. Rachna Acosta DO Work Phone: Start: 06-24-2024 X-ray of chest, PA a nd lateral views Dr. Rachna Acosta DO Work Phone: Start: 06-03-2024 Glucose measurement, body fluid Dr. Rachna Acosta DO Work Phone: Start: 06-03-2024 Plain chest X-ray Dr. Sameer Acosta DO Work Phone: Start: 06-03-2024 Ultrasonic guidance for thoracentesis Dr. Rachna Acosta DO Work Phone: Start: 05-31-2024 X-ray of chest, PA a nd lateral views Dr. Rachna Acosta DO Work Phone: Start: 05-31-[address] Rachna Acosta DO Work Phone: Start: 03-23-2024 X-ray of chest, PA a nd lateral views Dr. Rachna Acosta DO Work Phone: Start: 03-17-[address] Rachna Acosta DO Work Phone: Start: 03-09-2024 Measurement of renal function Dr. Rachna Acosta DO Work Phone: Comment on above: GFR Calc Start: 03-09-2024 CT of abdomen with contrast Dr. Rachna Acosta DO Work Phone: Start: 09-16-2023 ARRHYTHMIA TRANS TEL E MEASURE Bear Rodarte MD Work Phone: Start: 09-06-2023 ARRHYTHMIA TRANS TEL E MEASURE Bear Rodarte MD Work Phone: Start: 08-29-2023 ARRHYTHMIA TRANS TEL E MEASURE Bear Rodarte MD Work Phone: Start: 08-20-2023 ARRHYTHMIA TRANS TEL E MEASURE Bear Rodarte MD Work Phone: Start: 08-16-2023 ARRHYTHMIA TRANS TEL E MEASURE Bear Rodarte MD Work Phone: Start: 08-07-2023 ARRHYTHMIA TRANS TEL E MEASURE Bear Rodarte MD Work Phone: Start: 08-02-2023 ARRHYTHMIA TRANS TEL E MEASURE Bear Rodarte MD Work Phone: Start: 07-26-2023 ARRHYTHMIA TRANS TEL E MEASURE Bear Rodarte MD Work Phone: Start: 07-17-2023 ARRHYTHMIA TRANS TEL E MEASURE Bear Rodarte MD Work Phone: Start: 07-10-2023 ARRHYTHMIA TRANS TEL E MEASURE Bear Rodarte MD Work Phone: Start: 06-26-2023 Ct heart contrast ev al cardiac structure&morph Bear Rodarte MD Work Phone: Start: 06-26-2023 Antibody screen RACHNA MA DELMI Comment on above: Order Comment: Speci men Type: BLOOD SPECIMEN Ordering Facility: [facility] Address: [address] [place] [address] Performed By: #### 5 [id number] #### [facility] CLIA [id number] [address] [place] [address] [place] [address] [place] Start: 12-26-[address] Chon Acosta Work Phone: Start: 10-29-2022 Plain chest X-ray Start: 10-25-2022 CT angiography of ch est with contrast Start: 10-24-2022 Plain chest X-ray Start: 10-09-2022 Plain chest X-ray Start: 07-19-2022 Radiography of ankle Start: 09-29-2021 ALANNAH SCREENING [facility] f Provider Start: 09-17-2019 Mammography Abhishek mitchell MD Work Phone: Start: 01-04-2017 Adult depression scr eening assessment Screen Wstr Plan of Treatment Date Care Activity Detail Author Start: 07-02-2026 Diabetes Screening Diabetes Screen[facility] Start: 05-28-2026 Diabetes Screening Diabetes Screenin [facility] Start: 07-30-2024 End: 07-30-2025 Thoracentesis Thoracentesis PFT Routine Recurrent pleural effusion Pleural effusion on left Expected: 07/30/2024 (Approximate), Expires: 07/30/2025 [facility] Work Phone: Comment on above: Expected: 07/30/2024 (Approximate), Expires: 07/30/2025 Start: 07-22-2024 End: 07-22-2024 Patient encounter procedure 07/22/2024 12:45 PM EDT Appointment [facility] [address] [place] [address] Emeterio Malcolm DO [address] [place] [address] [facility] [address] Start: 06-03-2024 [facility] Start: 06-03-2024 Vital signs measurements [facility] Start: 05-31-2024 [facility] Start: 05-31-2024 [facility] Start: 02-19-2024 Advance Directive Discussion Advance Directive Discussion [facility] Start: 02-19-2024 Medicare Advantage A nnual Wellness Visit Medicare Advantage Annual Wellness Visit [facility] Start: 10-28-2023 End: 10-28-2023 Patient encounter procedure 10/28/2023 12:00 PM EDT Office Visit Cardiology [address] [place] [address] Mariella Yancey, AGENTS' RECORDS CLERK.VICE PRESIDENT LENDING [address] [place] [address] DX 3-4 MTH PVI Cardiology Comment on above: DX 3-4 MTH PVI Start: 10-20-2023 Covid-19 Vaccine ( season) Covid-19 Vaccine ( season) [facility] Start: 10-20-2023 Influenza vaccination Influenza Vacc ine (#1) [facility] Start: 10-03-2023 End: 10-03-2023 Patient encounter procedure 10/03/2023 12:00 PM EDT Office Visit Cardiology [address] [place] [address] Luis F Bravo, AGENTS' RECORDS CLERK.VICE PRESIDENT LENDING [address] [place] [address] DX 3-4 MTH PVI Cardiology Comment on above: DX 3-4 MTH PVI Start: 10-03-2023 End: 10-03-2023 ambulatory 10/03/2023 11:15 AM EDT Results Only Cardiology [address] [place] [address] DX 3-4 MTH PVI Cardiology Comment on above: DX 3-4 MTH PVI Start: 07-24-2023 End: 07-24-2023 Admission to same day surgery center 07/24/2023 1:00 PM EDT - 07/24/2023 6:00 PM EDT Surgery HOSP EP Lab [address] [place] [address] Bear Rodarte MD [address] [place] [address] COMPLETE EPS W/PVI ABL W/WO 3D MAP ICE HOSP EP Lab Comment on above: COMPLETE EPS W/PVI A BL W/WO 3D MAP ICE Start: 07-24-2023 End: 07-24-2023 Ephys evl trnsptl tx atrial fib isolat pulm vein COMPLETE EPS W/PVI ABL W/WO 3D MAP ICE Paroxysmal atrial fibrillation (HCC) 07/24/2023 1:00 PM EDT EP LAB Start: 07-24-2023 Subsequent hospital visit by physician 07/24/2023 1:00 PM EDT Hospital Encounter HOSP EP Lab [address] [place] [address] Bear Rodarte MD [address] [place] [address] Paroxysmal atrial fibrillation (HCC) [I48.0] HOSP EP Lab Comment on above: Paroxysmal atrial fi brillation (HCC) [I48.0] Start: 07-24-2023 End: 07-24-2023 Patient encounter procedure Admitting Comment on above: PVI ABLATION Start: 07-03-2023 End: 07-03-2023 Admission to same day surgery center 07/03/2023 1:00 PM EDT - 07/03/2023 6:00 PM EDT Surgery HOSP EP Lab [address] [place] [address] Bear Rodarte MD [address] [place] [address] COMPLETE EPS W/PVI ABL W/WO 3D MAP ICE HOSP EP Lab Comment on above: COMPLETE EPS W/PVI A BL W/WO 3D MAP ICE Start: 07-03-2023 Subsequent hospital visit by physician 07/03/2023 1:00 PM EDT Hospital Encounter HOSP EP Lab [address] [place] [address] Bear Rodarte MD [address] [place] [address] Paroxysmal atrial fibrillation (HCC) [I48.0] HOSP EP Lab Comment on above: Paroxysmal atrial fi brillation (HCC) [I48.0] Start: 07-03-2023 End: 07-03-2023 Ephys evl trnsptl tx atrial fib isolat pulm vein EP LAB Start: 07-03-2023 End: 07-03-2023 Patient encounter procedure Admitting Comment on above: PVI ABLATION Start: 06-26-2023 End: 06-26-2023 [facility] J1-4 Draw Station Comment on above: PVI ABLATION Start: 06-26-2023 End: 06-26-2023 Patient encounter procedure Radiology Comment on above: PVI ABLATION Start: 06-23-2023 End: 05-23-2024 Basic metabolic 2000 panel - Serum or Plasma BASIC METABOLIC PNL Lab Routine Atrial fibrillation, persistent (HCC) Expected: 06/23/2023, Expires: 05/23/2024 [facility] Work Phone: Comment on above: Expected: 06/23/2023 , Expires: 05/23/2024 Start: 06-23-2023 End: 05-23-2024 CBC panel - Blood by Automated count CBC Lab Routine Atrial fibrillation, persistent (HCC) Expected: 06/23/2023, Expires: 05/23/2024 [facility] Work Phone: Comment on above: Expected: 06/23/2023 , Expires: 05/23/2024 Start: 06-23-2023 End: 05-23-2024 CONFIRM BLOOD TYPE CONFIRM BLOOD TYPE Blood Bank Routine Atrial fibrillation, persistent (HCC) Expected: 06/23/2023, Expires: 05/23/2024 [facility] Work Phone: Comment on above: Expected: 06/23/2023 , Expires: 05/23/2024 Start: 06-23-2023 End: 05-23-2024 TYPE AND SCREEN,30 DAY TYPE AND SCREEN,30 DAY Blood Bank Routine Atrial fibrillation, persistent (HCC) Expected: 06/23/2023, Expires: 05/23/2024 [facility] Work Phone: Comment on above: Expected: 06/23/2023 , Expires: 05/23/2024 Start: 05-24-2023 End: 08-23-2023 CREATININE BLD CREATININE BLD Lab Routine Atrial fibrillation, persistent (HCC) Expected: 05/24/2023, Expires: 08/23/2023 [facility] Work Phone: Comment on above: Expected: 05/24/2023 , Expires: 08/23/2023 Start: 03-01-2023 Patient referral [facility] Work Phone: Start: 02-21-2023 Patient discharge [facility] Start: 02-18-2023 Advance Directive Discussion Advance Directive Discussion [facility] Start: 02-18-2023 Behavioral Health Screening Behavioral Health Screening [facility] Start: 02-18-2023 Depression Assessment Depression Ass essment [facility] Start: 01-15-2023 Patient discharge [facility] Start: 12-26-2022 [facility] Start: 12-25-2022 End: 12-25-2022 Patient encounter procedure 12/25/2022 10:00 AM EST Office Visit [facility] [address] [place] [address] Abhishek Andrews MD [address] [place] [address] [facility] Start: 11-27-2022 Patient discharge [facility] Start: 10-19-2022 Covid-19 Vaccine ( season) Covid-19 Vaccine ( season) [facility] Start: 10-19-2021 Influenza vaccination INFLUENZA (#1) [facility] Start: 06-03-2021 COVID-19 VACCINE (4 - Booster for Moderna series) COVID-19 VACCINE (4 - Booster for Moderna series) [facility] Start: 2021 RSV Immunization for Adults (1 - 1-dose 75+ series) RSV Immunization for Adults (1 - 1-dose 75+ series) [facility] Start: 2021 RSV Vaccine (1 - 1-d ose 75+ series) RSV Vaccine (1 - 1-dose 75+ series) [facility] Start: 03-30-2021 COVID-19 Vaccine (4 - Booster for Moderna series) COVID-19 Vaccine (4 - Booster for Moderna series) [facility] Start: 02-18-2021 ADVANCE DIRECTIVE DISCUSSION ADVANCE DIRECTIVE DISCUSSION [facility] Start: 09-16-2020 Screening for malign ant neoplasm of breast Mammogram [facility] Start: 05-19-2018 DIABETES SCREEN DIABETES SCREEN [facility] Start: 05-19-2018 Diabetes Screening Diabetes Screenin g [facility] Start: 01-04-2018 Adult depression scr eening assessment DEPRESSION SCREENING [facility] Start: 04-29-2011 BONE DENSITY BONE DENSITY [facility] Start: 04-29-2011 Fall risk assessment Falls Risk Asse ssment [facility] Start: 04-29-2011 Pneumococcal Vaccine : 65+ (1 of 1 - PCV) Pneumococcal Vaccine: 65+ (1 of 1 - PCV) [facility] Start: 04-29-2011 Pneumococcal Vaccine : Age 65+ (1 - PCV) Pneumococcal Vaccine: Age 65+ (1 - PCV) [facility] Start: 04-29-2011 PNEUMOCOCCAL: 65+ (1 - PCV) PNEUMOCOCCAL: 65+ (1 - PCV) [facility] Start: 04-29-2011 Screening for osteoporosis Bone Dens ity Screening [facility] Start: 2006 RSV Vaccine (1 - 1-d ose 60+ series) RSV Vaccine (1 - 1-dose 60+ series) [facility] Start: 1996 Administration of he rpes zoster vaccine Zoster Vaccines (1 of 2) [facility] Start: 1996 Pneumococcal Vaccine : 50+ (1 of 1 - PCV) Pneumococcal Vaccine: 50+ (1 of 1 - PCV) [facility] Start: 1996 SHINGRIX VACCINE (1 of 2) [place] GRIX VACCINE (1 of 2) [facility] Start: 1996 Zoster Vaccines (1 of 2) Zoste r Vaccines (1 of 2) [facility] Start: 04-29-1991 COLOGUARD (FIT-DNA) COLOGUARD (FIT-D NA) [facility] Start: 04-29-1991 Colonoscopy COLONOSCOPY [facility] Start: 04-29-1991 COLORECTAL CANCER SCREENING COLORECTAL CANCER SCREENING [facility] Start: 04-29-[address] COLONOGRAPHY [facility] Start: 04-29-1991 FECAL OCCULT BLOOD FECAL OCCULT BLOO D [facility] Start: 04-29-1991 LIPID SCREEN LIPID SCREEN [facility] Start: 04-29-1991 SIGMOIDOSCOPY SIGMOIDOSCOPY [facility] Start: 1965 DTaP/Tdap/Td Vaccine s (1 - Tdap) DTaP/Tdap/Td Vaccines (1 - Tdap) [facility] Start: 1965 Pneumococcal Vaccine : 50+ Years (1 of 2 - PCV) Pneumococcal Vaccine: 50+ Years (1 of 2 - PCV) [facility] Start: 1965 Urine microalbumin profile [facility] Start: 1964 Depression Screening Depression Scre ening [facility] Start: 1964 Hepatitis C screening Hepatitis C Sc zora [facility] Start: 1958 Depression screening using PHQ-9 (Patient Health Questionnaire 9) score [facility] Start: 1949 History and physical examination, annual for health maintenance Wellness Visit [facility] Start: 1946 Creatinine measurement Creatinine Le arsh [facility] Start: 1946 Echocardiography Echocardiogram [facility] Start: 1946 Potassium measurement Potassium Leve l [facility] Start: 1946 Screening for osteoporosis [facility] Start: 1946 Tetanus vaccination Tetanus: Every 1 0yrs [facility] Start: 1946 Thyroid stimulating hormone measurement TSH Level [facility] Catheterization of l eft heart [facility] End: 07-22-2024 CT Chest W contrast IV [facility] Sy[facility] em Work Phone: Comment on above: Once for 1 Occurrenc es starting 07/22/2024 until 07/22/2024 End: 06-22-2024 CTA Pulmonary veins W contrast IV CT PULMONARY VEIN W IVCON Radiology Routine Atrial fibrillation, persistent (HCC) 1 Occurrences starting 05/24/2023 until 06/22/2024 [facility] Work Phone: Comment on above: 1 Occurrences starti ng 05/24/2023 until 06/22/2024 End: 04-11-2024 ECG COMPLETE ECG COMPLETE ECG Routine Atrial fibrillation, persistent (HCC) 1 Occurrences starting 04/11/2023 until 04/11/2024 [facility] Work Phone: Comment on above: 1 Occurrences starti ng 04/11/2023 until 04/11/2024 End: 05-23-2024 ECG COMPLETE ECG COMPLETE ECG Routine Atrial fibrillation, persistent (HCC) 1 Occurrences starting 05/24/2023 until 05/23/2024 [facility] Work Phone: Comment on above: 1 Occurrences starti ng 05/24/2023 until 05/23/2024 End: 04-09-2024 Echocardiography ECHO Cardiology Routine Atrial fibrillation, persistent (HCC) 1 Occurrences starting 04/09/2023 until 04/09/2024 [facility] Work Phone: Comment on above: 1 Occurrences starti ng 04/09/2023 until 04/09/2024 Patient Education [facility] Work Phone: Patient referral [facility] Work Phone: XR Chest PA and Lateral [facility] XR Chest PA and Lateral [facility] Immunizations Immunization Date Immunization Notes Care Provider Fa anayeli 12-06-2022 influenza virus vaccine, unspecified formulation Tish Dougherty APRN.CNP Work Phone: [facility] 05-11-2020 [facility] (Moderna) [facility] 04-13-2020 [facility] (Moderna) [facility] Payers Date Payer Category Payer Self-pay [id number] 2023 Medicare MMO MEDICARE MMO MEDADVANTAGE HMO [id number] 2023-Present [phone] [address] [place] [id number] O [id number] 2023 Medicare (Managed Care) MMO MEDADVANTAGE HMO [id number] 2023 Medicare HMO MMO MEDICARE ADV ANTAGE [id number] 2023 Medicare [id number] 2020 Unknown [id number]. [id number]. [id number] 2015 Unknown [id number] 1945 Unknown [id number] 2.16.840.1.426112.3.579.2. 903 1946 Unknown [id number] 2.16.840.1.520743.3.579.2. 903 1945 Unknown [id number] 2.16.840.1.130511.3.579.2. 278 1946 Unknown [id number] 2.16.840.1.576463.3.579.2. 278 1946 Unknown [id number] 2.840.1.256102.3.579.2. 278 1946 Unknown [id number] 2.16.840.1.642171.3.579.2. 278 Medicare MEDICARE PART A B [id number] Medicare [id number] Unknown [id number] 2.840.1.894491.3.579.2. 462 Unknown [id number] 2.840.1.976010.3.579.2. 462 Unknown [id number] 2.840.1.355565.3.579.2. 462 Unknown [id number] 2.840.1.954783.3.579.2. 462 Unknown [id number] 2.840.1.016379.3.579.2. 462 Unknown [id number] 2.840.1.979149.3.579.2. 462 Unknown [id number] 2.840.1.023898.3.579.2. 462 Unknown [id number] 2.840.1.453714.3.579.2. 462 Unknown [id number] 2.16840.1.344687.3.579.2. 462 Unknown [id number] 2.840.1.392390.3.579.2. 462 Unknown [id number] 2.840.1.398274.3.579.2. 462 Unknown [id number] 2.16.840.1.884006.3.579.2. 462 Unknown [id number] 2.16.840.1.043821.3.579.2. 462 Unknown [id number] 2.16.840.1.341729.3.579.2. 462 Unknown [id number] 2.16.840.1.015189.3.579.2. 462 Unknown [id number] 2.16.840.1.172327.3.579.2. 462 Unknown [id number] 2.16.840.1.974929.3.579.2. 462 Unknown [id number] 2.16.840.1.928206.3.579.2. 462 Unknown [id number] 2.16.840.1.993468.3.579.2. 462 Unknown [id number] 2.16.840.1.358664.3.579.2. 462 Unknown [id number] 2.16.840.1.399295.3.579.2. 462 Social History Date Type Detail Facility Start: 01-04-2017 End: 05-31-2024 Tobacco smoking status NHIS Ex-smoker [facility] Start: 02-19-1976 End: 02-19-2016 History of tobacco use Current smoker [facility] Start: 02-19-1976 End: 02-19-2016 History of tobacco use Cigarette Smoker [facility] Start: 01-04-2017 End: 04-09-2023 Tobacco use and exposure Smokeless tobacco non-user [facility] Start: 08-11-2019 End: 10-03-2023 Alcohol intake Current drinker of alcohol (finding) [facility] Start: 08-11-2019 End: 04-09-2023 Alcohol intake [facility] Start: 03-01-2015 History SDOH Alcohol Comment social [facility] Start: 12-27-2016 End: 04-09-2023 Tobacco Comment 3 cigarettes/day [facility] Start: 1945 Sex Assigned At Not on file [facility] Start: 09-19-2021 End: 06-19-2022 Exposure to SARS-CoV-2 (event) Not sure [facility] Start: 1945 Sex Assigned At Female [facility] Start: 11-02-2022 End: 03-01-2023 Tobacco smoking status NHIS Tobacco smoking consumption unknown [facility] Start: 04-09-2023 End: 10-03-2023 Gender identity Not on file [facility] National Score (1-100), lower number is lower risk 72 [facility] Start: 03-04-2023 End: 05-31-2024 Sex Female (finding) [facility] Goals Date Patient Goal Desired Activity /State Personal health goal Mental Status Date Assessment Result Facility 08-14-2024 Cognitive function Level Of Cons ciousness Awake;Alert;Appropriate [facility] Work Phone: 06-03-2024 Cognitive function Level Of Cons ciousness Awake;Alert;Appropriate [facility] Work Phone: Clinical Notes 09-29-2021 to 11-03-2024 Note Date & Type Note Facility 11-03-2024 Radiology Diagnostic study note [facility] Imaging Services [address] [place] [address] Chest PA and Lateral MR#: [id number] Acct: [id number] Name: CRISELDA STORM Rep #: [id number] : 1945 F [id number] From: Manny Woodward MD PCP: Dr. Rachna Acosta, DO Status: REG CLI Study:Chest PA and Lateral Date of Exam: 11/03/24 Exam# [id number] Ordering Dr: Clarence Kim MEDICAL MANAGER MEDICAL MANAGER-C PROCEDURE: CHEST PA AND LATERAL 11/03/2024 REASON FOR EXAM: SOB TECHNIQUE: Procedure Code: RADCXR Modality: DX Procedure: CHEST PA AND LATERAL COMPARISON: August 18, 2024 FINDINGS: Hardware: None Heart: Enlarged Mediastinum: Aorta is atherosclerotic. Lungs: Consolidation in the lingula and left lower lobe along with some pleural fluid. No change. Bones: There is exaggeration of the thoracic kyphosis related to anterior wedge compression fractures in the midthoracic spine. Additionally some biconcave compression fractures are seen in the lower thoracicspine. RAD/Chest PA and Lateral IMPRESSION: No significant change in the appearance of the left lung consolidation and pleural fluid. No pneumothorax. Reading Location: JAMES CC: LEX Kim; Dr. Rachna Acosta DO ~ Radio Operator Ground: Signed [facility] 10-01-2024 Radiology Diagnostic study note [facility] Imaging Services [address] [place], [place] [address] Chest PA and Lateral MR#: [id number] Acct: [id number] Name: CRISELDA STORM Rep #: [id number] : 1945 F [id number] From: Estrella Silva MD PCP: Dr. Rachna Acosta DO Status: REG CLI Study:Chest PA and Lateral Date of Exam: 10/01/24 Exam# [id number] Ordering Dr: Clarence Kim NP MEDICAL MANAGER-Ulysses PROCEDURE: CHEST PA AND LATERAL 10/01/2024 REASON FOR EXAM: SHORTNESS OF BREATH, HX BILAT. PLEURAL EFFUSIONS TECHNIQUE: CHEST PA AND LATERAL COMPARISON: Chest x-ray 09/01/2024. FINDINGS: Heart: Heart size is mildly enlarged. Tortuous thoracic aorta. Mediastinum: The mediastinal contour is stable. Lungs: Redemonstration of right lower lobe airspace disease. Left small pleuraleffusion. Previously seen left apical pneumothorax is not appreciated in current study. Bones: Degenerative changes are identified within the thoracic spine. Other: Multiple clips within right lower lung as well as anterior mediastinum. RAD/Chest PA and Lateral IMPRESSION: Redemonstration of right lower lung airspace disease, unchanged since prior study. Small left pleural effusion. Reading Location: [facility] CC: LEX Kim; Dr. Rachna Acosta DO ~ Radio Operator Ground: Signed [facility] 09-01-2024 Radiology Diagnostic study note [facility] Imaging Services [address] [place], [place] [id number] Chest PA and Lateral MR#: [id number] Acct: [id number] Name: CRISELDA STORM Rep #: [id number] : 1945 F [id number] From: Pauline Noland MD PCP: Dr. Rachna Acosta DO Status: REG CLI Study:Chest PA and Lateral Date of Exam: 09/01/24 Exam# [id number] Ordering Dr: Clarence Kim MEDICAL MANAGER MEDICAL MANAGER-C EXAM: XR Chest, 2 Views CLINICAL INDICATION: PLEURAL EFUSSION EVALUATION TECHNIQUE: Frontal and lateral views of the chest. COMPARISON: XR Chest dated 08/18/2024 FINDINGS: LUNGS AND PLEURAL SPACES: Bibasilar atelectasis or pneumonia. Left pleural effusion. No pneumothorax. HEART: Unremarkable. No cardiomegaly. MEDIASTINUM: Unremarkable. Normal mediastinal contour. BONES/JOINTS: Unremarkable. No acute fracture. RAD/Chest PA and Lateral IMPRESSION: 1. Bibasilar atelectasis or pneumonia. 2. Left pleural effusion. Reading Location[facility] CC: MEDICAL MANAGER-C Cinthia Kim; Dr. Rachna Acosta DO ~ Radio Operator Ground: Signed [facility] 08-19-2024 Radiology Diagnostic study note [facility] Imaging Services [address] [place], [place] [address] Chest PA and Lateral MR#: [id number] Acct: [id number] Name: CRISELDA STORM Rep #: [id number] : 1945 F 79 From: Allyn Lala MD PCP: Dr. Rachna Acosta DO Status: REG CLI Study:Chest PA and Lateral Date of Exam: 08/18/24 Exam# [id number] Ordering Dr: Clarence Kim MEDICAL MANAGER MEDICAL MANAGER-C PROCEDURE: CHEST PA AND LATERAL 08/18/2024 REASON FOR EXAM: POST THORACENTISIS X-RAY BASELINE TECHNIQUE: CHEST PA AND LATERAL COMPARISON: 06/24/2024 FINDINGS: Status post left-sided thoracentesis, there is a persistent moderate left effusion with introduction of air component. Small decrease in the fluid component. In addition to loculated air, there is a left apical pneumothorax, extending 13 mm from the inner chest wall. Underlying atelectasis/consolidation. There is faint airspace disease at the right lung base. There is background emphysema and smoking-related interstitial lung disease. Normal heart size. Thoracic spine scoliosis. RAD/Chest PA and Lateral IMPRESSION: Status post left-sided thoracentesis, small improvement in now moderate, partially loculated effusion, with loculated air component and also apical pneumothorax component. Persistent right base faint airspace disease. Reading Location: [facility] CC: LEX Kim; Dr. Rachna Acosta, DO ~ Radio Operator Ground: Signed [facility] 08-18-2024 Evaluation note Diagnosis Onset Date Resolution Atrial flutter acute August 18, 2024 9:23am Non-ischemic cardiomyopathy acute August 18, 2024 9:23am [facility] Work Phone: 1(990) 482-946407-01-2025 Evaluation note* Diagnosis Onset Date Resolution Status Admit Date Atrial flutter acute August 18, 2024 9:23am Non-ischemic cardiomyopathy acute August 18, 2024 9:23am Bilateral pleural effusion acute November 03, 2024 8:59am CHF (congestive heart failur e), NYHA class III acute November 03, 2024 8:59am Non-ischemic cardiomyopathy acute November 03, 2024 8:59am Shortness of breath acute 2024 8:59am [facility] Work Phone: 1(682) 977-422807-01-2025 Evaluation note* Diagnosis Onset Date Resolution Status Admit Date Atrial flutter acute August 18, 2024 9:23am Non-ischemic cardiomyopathy chronic August 18, 2024 9:23am Atrial flutter acute November 03, 2024 8:59am Bilateral pleural effusion chronic November 03, 2024 8:59am Non-ischemic cardiomyopathy chronic November 03, 2024 8:59am [facility] Work Phone: 1(900) 167-602306-27-2025 Radiology Diagnostic study note [facility] Imaging Services [address] [place], [place] [id number] Thoracentesis W US MR#: [id number] Acct: [id number] Name: CRISELDA STORM Rep #: [id number] : 1945 F 79 From: Moy Francis MD PCP: Dr. Rachna Acosta DO Status: REG CLI Study:Thoracentesis W US Date of Exam: 0 08/14/24 Exam# [id number] Ordering Dr: Julio MALCOLM PROCEDURE: THORACENTESIS W US 08/14/2024 REASON FOR EXAM: RECURRENT PLEURAL EFFUSION TECHNIQUE: THORACENTESIS W US, left COMPARISON: Prior thoracentesis of 06/03/2024. FINDINGS: Following informed consent, and using standard sterile technique, an ultrasound- guided left thoracentesis was performed via a posterior approach. 2% lidocaine local anesthesia was followed by placement of a 5 Nepalese catheter into the fluid collection. Approximately 650 mL slightly blood-tinged fluid was successfully removed. No complication was encountered, the patient left the department good condition without significantcomplaint. US/Thoracentesis W US IMPRESSION: Successful left sided ultrasound-guided therapeutic thoracentesis. Reading Location: [place] [address] CC: Dr. Rachna Acosta DO; EMETERIO MALCOLM ~ Radio Operator Ground: Signed [facility]06-18-2025 Telephone encounter Note* Telephone Encounter - Fabiana Millan RN - 08/05/2024 3:53 PM EDT Pt daughter called requesting thoracentesis order faxed to [place]. Order faxed. Pt daughter statesshe is scheduling at [place] and will follow up with pt PCP unless her mom decides on a different route. [id number] Miscellaneous Notes* Telephone Encounter - Fabiana Millan RN - 08/05/2024 3:53 PM EDT Pt daughter called requesting thoracentesis order faxed to [place]. Order faxed. Pt daughter statesshe is scheduling at [place] and will follow up with pt PCP unless her mom decides on a different route. * Telephone Encounter - Fabiana Millan RN - 08/03/2024 9:27 AM EDT Spoke to daughter who states they would prefer to call central scheduling due to her work schedule.Number given. * Telephone Encounter - Fabiana Millan RN - 07/30/2024 3:11 PM EDT Orders Placed This Encounter Procedures Thoracentesis Standing Status: Future Expected Date: 07/30/2024 Expiration Date: 07/30/2025 * Telephone Encounter - Fabiana Millan RN - 07/30/2024 3:[address] Malcolm reviewed results with Coco, patient's daughter, per patient's request. Per Dr. Malcolm, plan is to schedule a thoracentesis for patient and she will call our office prn. * Telephone Encounter - Brenda Tony - 07/29/2024 4:46 PM EDT Name of caller: Coco Contact phone number: [phone] Relationship to Patient: Daughter Provider: Dr. Malcolm Practice: Cardiothoracic Chief Complaint/Reason for Call: Patient daughter requesting a callback to discuss imaging results of chest CT. Please advise. Best time of day caller can be reached: Any Patient advised that office/PCP has 24-48 business hours to return their call: Yes' documented in this [facility]06-16-2025 Telephone encounter Note* Telephone Encounter - Fabiana Millan RN - 08/03/2024 9:27 AM EDT Spoke to daughter who states they would prefer to call central scheduling due to her work schedule.Number given. [id number] NoteOrders Placed This Encounter Procedures Thoracentesis Standing Status: Future Expected Date: 07/30/2024 Expiration Date: 07/30/2025[facility]06-12-[facility] Telephone encounter Note* Telephone Encounter - Fabiana Millan RN - 07/30/2024 3:11 PM EDT Orders Placed This Encounter Procedures Thoracentesis Standing Status: Future Expected Date: 07/30/2024 Expiration Date: 07/30/2025 [id number] Telephone encounter Note* Telephone Encounter - Fabiana Millan RN - 07/30/2024 3:[address] Malcolm reviewed results with Coco, patient's daughter, per patient's request. Per Dr. Malcolm, plan is to schedule a thoracentesis for patient and she will call our office prn. [id number] Telephone encounter Note* Telephone Encounter - Brenda Tony - 07/29/2024 4:46 PM EDT Name of caller: Coco Contact phone number: [phone] Relationship to Patient: Daughter Provider: Dr. Malcolm Practice: Cardiothoracic Chief Complaint/Reason for Call: Patient daughter requesting a callback to discuss imaging results of chest CT. Please advise. Best time of day caller can be reached: Any Patient advised that office/PCP has 24-48 business hours to return their call: Yes' [facility]en[facility]rh19-30-0821 NoteOrders Placed This Encounter Procedures CT chest w IV contrast Standing Status: Future Expected Date: 07/16/2024 Expiration Date: 07/16/2025 Record Decision Support information?: No Decision Support Exception: Emergency Medical Condition (MA) [1] Per protocol CT IV contrast: Isovue 370/500ml; 75ml is dose given; IV; per exam; 0.9% Normal saline 50cc after contrast admin, may repeat 1x Creatinine, Serum Standing Status: Future Number of Occurrences: 1 Expected Date: 07/16/2024 Expiration Date: 07/16/2025[facility]05-29-20[facility] History of Present illness Narrative* Emeterio Malcolm, DO - 07/16/2024 12:00 PM EDT Images from the original note were not included. [facility] [address] [facility] [address] Dept: [phone] Dept Loc: [phone] Visit type: New Reason for Visit: Pleural effusion Assessment: 1. Pleural effusion on left 2. Chronic combined systolic (congestive) and diastolic (congestive) heart failure (HCC) 3. Atrial fibrillation, unspecified type (HCC) Recommendations: She has a longstanding left pleural effusion from unknown etiology, though heart failure is the leading possibility. Unfortunately, all her previous workup has been done elsewhere. Our next step in management will be to get a current CT chest to evaluate the fluid. I would also like to get echocardiogram and office visit notes from cardiology in [place]. Even without this information I did propose several options for treatment. This includes: Doing nothing other than thoracentesis as needed. Most people tire out of this option very quickly. Hospital admission, chest tube placement, and fibrinolytic therapy. This option avoids surgery in a79 year old frail patient but compels us to settle for a less than ideal result many times. Surgical decortication--painful, traumatic, but definitely most effective. I would have to make sure she is capable of this medically first PleurX catheter placement--really the last resort as it means she is giving up but definitely tolerable and something to talk more about if the above options fail. After I evaluate her CT scan we will talk again about the options. History of Present Illness Criselda Storm is a 79 y.o. female referred by Dr. Acosta for recurrent left pleural effusion. Per note, patient has had recurrent pleural effusion of left lung which began after she developed Afib and acute heart failure. Pt underwent ablation on 07/03/2023. Pt recently had reported shortnessof breath, CXR was ordered which showed unchanged cardiomegaly and a moderate left pleural effusion. Pt underwent US guided left thoracentesis on 06/03/24 with 900 mL clear yellow fluid removed. Cytology was negative for malignancy. Pt followed up with PCP on 06/22/24 where she reported occasional shortness of breath and fatigue. Pt was referred to pulmonary rehab and follow up CXR was ordered. CXR on 06/24/24 showed a large left pleural effusion occupying greater than 60% of the left hemithorax. Patient is a former smoker. Patient is here today for an evaluation. She complains of worsening shortness of breath over the last few months. There is some associated pleuritic pain as well, but this may be due to her thoracentesis. She did feel a little better after the thoracentesis, however. Past Medical History Medical History[1] Past Surgical History Surgical History[2] Family History Family History[3] Social History Marital status: ? Work history: Retired status: Never Served Social History[4] Allergies Allergies[5] Medications Current Medications[6] Review of Systems Review of Systems Constitutional: Easily fatigued HENT: Negative. Eyes: Negative. Respiratory: SOB on exertion Cardiovascular: Negative. Gastrointestinal: Negative. Endocrine: Negative. Genitourinary: Negative. Musculoskeletal: Left upper/mid back pain Skin: Negative. Allergic/Immunologic: Negative. Neurological: Negative. Hematological: Negative. Psychiatric/Behavioral: Negative. Physical Exam Vitals: BP 98/56 (BP Location: Left arm, Patient Position: Sitting, BP Cuff Size: Large adult) Pulse 61 Wt 113 lb (51.3 kg) Constitutional: General: Not in acute distress. Appearance: Normal appearance. Not toxic-appearing. Ear, nose, mouth: Bilateral external ear and nose normal. Nose: Nose normal. Mouth: Appearance normal, no bleeding, moist mucus membranes Eyes: General: No scleral icterus. No discharge from bilateral eyes Extraocular Movements: Extraocular movements intact. Pupils equal and reactive bilaterally Cardiovascular: Heart: Regular rhythm. Normal heart sounds. Vascular: No carotid bruit. Edema: no edema in bilateral lower extremities Pulmonary: Effort: Pulmonary effort is normal. No respiratory distress. Breath sounds: Normal breath sounds. No wheezing. Chest wall: No tenderness. Abdominal: Appearance: Not distended Palpations: There is no abdominal tenderness, no guarding. Musculoskeletal: Bilateral upper and lower extremities: Normal range of motion, no deformity Head: Normocephalic and atraumatic. Neck: Normal range of motion and neck supple. No muscular tenderness. Lymphadenopathy: Cervical: No cervical adenopathy. Skin: General: Skin is warm and dry. Coloration: Skin is not jaundiced. Neurological: General: No focal deficit present. Cranial Nerves: No obvious cranial nerve deficit. Psychiatric: Mood and Affect: Mood normal. Thought Content: Thought content normal. Patient has good judgement and insight Mental Status: Alert and oriented to place, person, and time. Labs No results found for: WBC, HGB, PLT, NA, K, CREATININE Imaging CXR 06/24/24 Cytology 06/03/24 CXR 06/03/24 CXR 05/31/24 CT Chest 10/25/2022 Patient Care Team: PCP: Rachna Acosta DO Cardiology: Luis F Bravo, AGENTS' RECORDS CLERK-ELISE Malcolm DO FACS Cardiothoracic Surgery [1] No past medical history on file. [2] No past surgical history on file. [3] No family history on file. [4] [5] No Known Allergies [6] Current Outpatient Medications: ALBUTEROL SULFATE HFA IN, Inhale., Disp: , Rfl: amiodarone (Pacerone) 200 MG tablet, Take 200 mg by mouth daily., Disp: , Rfl: apixaban (Eliquis) 5 MG tablet, Take 5 mg by mouth 2 times daily., Disp: , Rfl: budesonide-formoterol (Symbicort) 160-4.5 MCG/ACT inhaler, Inhale 2 puffs 2 times daily as needed. Rinse mouth with water after use to reduce aftertaste and incidence of candidiasis. Do not swallow.,Disp: , Rfl: DAPAGLIFLOZIN PROPANEDIOL PO, Take 10 mg by mouth daily., Disp: , Rfl: empagliflozin (Jardiance) 10 MG, Take 10 mg by mouth daily., Disp: , Rfl: Furosemide (LASIX PO), Take 20 mg by mouth daily., Disp: , Rfl: metoprolol tartrate (Lopressor) 50 MG tablet, Take 50 mg by mouth 2 times daily., Disp: , Rfl: sacubitril-valsartan (Entresto) 24-26 MG tablet, Take 1 tablet by mouth 2 times daily., Disp: , Rfl: documented in this [facility]05-08-2025 Radiology Diagnostic study note [facility] Imaging Services [address] [place] [id number] Chest PA and Lateral MR#: [id number] Acct: [id number] Name: CRISELDA STORM Rep #: [id number] : 1945 F 79 From: Shen Rose MD PCP: Dr. Rachna Acosta DO Status: REG CLI Study:Chest PA and Lateral Date of Exam: 06/24/24 Exam# [id number] Ordering Dr: Michelle Acosta sa, DO PROCEDURE: CHEST PA AND LATERAL 06/24/2024 REASON FOR EXAM: DYSPNEA TECHNIQUE: Frontal and lateral views of the chest. COMPARISON: Chest x-ray dated 06/03/2024. FINDINGS: Large left-sided pleural effusion is present occupying greater than 60% of the left hemithorax. Underlying mass can not be ruled out. Surgical clips seen within the right lower lung zone. Right basilar infiltrate is also present. Mild vascular congestion is present. No pneumothorax. RAD/Chest PA and Lateral IMPRESSION: Large left-sided pleural effusion, significantly increased since prior examination. Follow-up untilcomplete resolution. Underlying masses can not be ruled out. Reading Location: [facility] CC: Dr. Rachna Acosta DO ~ Radio Operator Ground: Signed [facility]04-16-2025 Evaluation note* Diagnosis Onset Date Resolution Status Admit Date Shortness of breath acute June 03, 2024 8:06am Pleural effusion inactive June 032024 8:06am Atrial flutter acute August 18, 2024 9:23am Non-ischemic cardiomyopathy acute August 18, 2024 9:23am [facility] Work Phone: 1(683) 155-339704-13-2025 Radiology Diagnostic study note [facility] Imaging Services [address] [place] [address] Chest PA and Lateral MR#: [id number] Acct: [id number] Name: CRISELDA STORM Rep #: [id number] : 1945 F 79 From: Skyler Fabian DO PCP: Dr. Rachna Acosta DO Status: REG ER Study:Chest PA and Lateral Date of Exam: 05/31/24 Exam# [id number] Ordering Dr: Garland Greene DO PROCEDURE: CHEST PA AND LATERAL 05/31/2024 REASON FOR EXAM: DYSPNEA TECHNIQUE: Frontal and lateral views of the chest. COMPARISON: 03/23/2024 FINDINGS: Mild cardiomegaly. Unchanged moderate left pleural effusion with probable adjacent atelectasis. Right lung is relatively clear. No sizable pneumothorax. Mild emphysema. RAD/Chest PA and Lateral IMPRESSION: Unchanged cardiomegaly and moderate left pleural effusion. Reading Location: [facility] CC: Dr. Omar Greene DO; Dr. Rachna Acosta DO ~ Radio Operator Ground: Signed [facility]03-13-2025 History of Present illness Narrative* Brittany Camacho Mammo Tech - 04/30/2024 11:30 AM EDT Radiology Service Progress Note PATIENT NAME: Criselda Storm DATE OF SERVICE: April 30, 2024 TIME: 12:42 PM PATIENT IDENTITY VERIFICATION COMPLETED USING TWO (2) IDENTIFIERS: Name and Date of confirmedby patient verbally. FALL SCREENING: Has the patient had 2 falls in the last year or 1 fall with injury or currently using an Ambulatory Assistive Device (Walker, Cane, Wheelchair, Crutches, etc.)? No PATIENT GENDER DATA: Assigned female at . status: : No status:NO. PATIENT RELEVANT IMPLANT DATA REVIEWED: Not Applicable PATIENT PRESENTS WITH AN IMPLANTABLE OR ATTACHED SULPHATE TESTER: No RADIOLOGY DEPARTMENT: Mammography PERIPHERAL IV DATA: Not applicable SIGNED BY: Robert Bae April 30, 2024 12:42 PM [facility]25 NoteHNO ID: [id number] Author: BRITTANY CAMACHO Mammo Tech Service: ? Author Type: Customer Support Advisor Type: Progress Notes Filed: 04/30/2024 12:42 Note Text: Radiology Service Progress Note PATIENT NAME: Criselda Storm DATE OF SERVICE: April 30, 2024 TIME: 12:42 PM PATIENT IDENTITY VERIFICATION COMPLETED USING TWO (2) IDENTIFIERS: Name and Date of confirmed by patient verbally. FALL SCREENING: Has the patient had 2 falls in the last year or 1 fall with injury or currently using an Ambulatory Assistive Device (Walker, Cane, Wheelchair, Crutches, etc.)? No PATIENT GENDER DATA: Assigned female at . status: : No status: NO. PATIENT RELEVANT IMPLANT DATA REVIEWED: Not Applicable PATIENT PRESENTS WITH AN IMPLANTABLE OR ATTACHED SULPHATE TESTER: No RADIOLOGY DEPARTMENT: Mammography PERIPHERAL IV DATA: Not applicable SIGNED BY: Robert Bae April 30, 2024 12:42 [facility]01-17-2025 Evaluation note* Diagnosis Onset Date Resolution Status Admit Date Atrial flutter acute March 062024 8:28am Non-ischemic cardiomyopathy acute March 06, 2024 8:28am Gastric wall thickening acute F [facility] 2024 1:43pm [facility] Work Phone: 1(840) 923-810301-17-2025 Evaluation note* Diagnosis Onset Date Resolution Status Admit Date Atrial flutter acute March 062024 8:28am Non-ischemic cardiomyopathy acute March 06, 2024 8:28am Gastric wall thickening [facility] 20[facility] 1:43pm Shortness of breath acute June 03, 2024 8:06am Pleural effusion inactive June 032024 8:06am [facility] Work Phone: 1(171) 724-955708-15-2024 History of Present illness Narrative* Luis F Bravo APRN.CNP - 10/03/2023 12:00 PM EDT Images from the original note were not included. [facility] Department of Cardiovascular Medicine SECTION OF CARDIAC PACING and ELECTROPHYSIOLOGY OUTPATIENT VISIT DATE October 03, 2023 OUTPATIENT VISIT TYPE EST PRIMARY CARE PHYSICIAN: Rachna Acosta [address] [place] [address] REFERRING PHYSICIAN: Bear Rodarte [address] [facility] [id number] CHIEF COMPLAINT: Post op HISTORY OF PRESENT ILLNESS: Ms. Storm is a 78 year old female who presents today post op follow up. She is s/p PFA atrial fibrillation ablation on 07/03/23. She is an an established patient of Dr. Rodarte . 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 On 07/03/23 she underwent PFA atrial fibrillation ablation. On July 13, she developed nausea, vomiting and diarrhea. Stool sample confirmed c-diff. She has beentreated with antibiotics with out relief. Recently, she was started on oral vancomycin. She presents in sinus rhythm with complaints of having no energy. When in atrial fibrillation/flutter, she notes shortness of breath, activity in tolerance,and fatigue. She does not endorse recurrentatrial fibrillation since ablation. She denies chest pain, shortness of breath, orthopnea, cough, edema, palpitations, PND, lightheadedness or syncope. Previously she exercises daily but has been iunable to complete her daily one mile walk or aerobic exercise due no energy she does not use tobacco products or elicit substances. Her skin and scalp appears burned. She reports this is from the sun and amiodarone PAST MEDICAL HISTORY No date: A-fib (HCC) No date: Atrial fibrillation (HCC) No date: Atrial flutter (HCC) No date: Carcinoma in situ of breast No date: Compression fracture of lumbar vertebra 08/12/2014: Encounter for routine adult health examination 06/09/2014: Malignant neoplasm of upper-inner quadrant of left female breast Comment: left breast, stage 1 triple negative No date: Pleural effusion No date: Primary cardiomyopathy (HCC) Comment: NonischemicPAST SURGICAL HISTORY No date: BREAST LUMPECTOMY HX 2014: CATARACT EXTRACTION HX; Right No date: INTRAOP SENTINEL LYMPH NODE ID W/DYE INJECTION 2011: PAST SURGICAL HISTORY OF; Left Comment: conor in left leg from fracture No date: TONSILLECTOMY HX SOCIAL HISTORY Social History Tobacco Use Smoking status: Former Years: 41 Types: Cigarettes Start date: 1976 Quit date: 2016 Years since quittin.6 Smokeless tobacco: Never Tobacco comments: 3 cigarettes/day Vaping Use Vaping Use: Never used Substance Use Topics Alcohol use: Yes Alcohol/week: 10.0 standard drinks of alcohol Types: 10 Glasses of wine per week Drug use: No FAMILY HISTORY Problem Relation Age of Onset Cancer Mother Stomach, age 40's Heart Father [place] No Known Problems Sister Heart Brother [place] other (no other known family hx of breast cancer) Other ALLERGIES: ALLERGIES No Known Allergies MEDICATIONS: Current Outpatient Medications Medication Sig triamcinolone acetonide (KENALOG) 0.1 % cream Apply to affected area as needed. vancomycin (VANCOCIN) 125 mg capsule Take 125 mg by mouth four times daily. LORazepam (ATIVAN) 0.5 mg Take 0.5 mg by mouth two times a day as needed (anxiety). furosemide (LASIX) 20 mg tablet Take 1 tablet by mouth once daily. ENTRESTO 24-26 mg tablet Take 1 tablet by mouth two times a day. FARXIGA 10 mg tablet Take 10 mg by mouth daily with breakfast. apixaban (ELIQUIS) 5 mg tab(s) Take 5 mg by mouth two times a day. No current facility-administered medications for this visit. REVIEW OF SYSTEMS: General, constitutional: Weight loss or gain- No, Fever or chills-No, Weakness- No, Trouble sleeping-No. Head, Eyes, Ears, Mouth: Headache, head injury-No, Glasses or contact lenses-No, Pain-No, Impaired vision-No, Decreased hearing-No, Ringing in ears-No, Nose bleeds-No, Dental difficulties-No, Bleeding gums-No, Dentures-No. Neck: Swelling-No, Pain-No, Stiffness-No. Respiratory: Cough-No, Spitting up blood-No, Shortness of breath-No, Wheezing or asthma-No. Musculoskeletal: Muscle or joint pain or stiffness-No, Joint swelling-No. Gastrointestinal: Difficulty swallowing-No, Heartburn-No, Change in bowel habits-No, Blood in stool, Dark black stools-No. Neurological/Psychiatric: Weakness, paralysis-No, Numbness-No, Tingling-No, Tremor-No, Nervousness or anxiety-No, Depressed mood-No, Memory loss-No. Skin: Rash-No, Itching-No. Hematological: Easy bruising-No, Easy bleeding-No. Endocrine: Heat or cold intolerance-No, Excessive sweating-No, Frequent urination-No, Frequent thirst-No. PHYSICAL EXAMINATION: BP 98/52 (BP Site: Left Arm, BP Position: Sitting, BP Cuff Size: Small Adult) Pulse (!) 58 Ht 165.1 cm (5' 5) Wt 51.3 kg (113 lb) BMI 18.80 kg/m General: Well appearing, in no acute distress. Walking to room 274 Skin: No clubbing, no cyanosis. Eyes: Extra ocular movements intact Oropharynx: Teeth in good repair. Neck: No jugular venous distention, no carotid bruits, carotids have a normal upstroke, no palpablethyromegaly. Lungs: Clear to auscultation bilaterally, no wheezing or rhonchi. Heart: Regular rhythm, PMI not displaced, S1, S2 normal, no S3, no S4, no heaves, no rub and no murmur. Abdomen: Soft, nontender, bowel sounds normal, no palpable organomegaly, no bruits. Extremities: No peripheral edema . Grade 2/4 distal pulses bilaterally. Neuro: Oriented to person, place and time, alert, cooperative, gait coordinated. CARDIOVASCULAR MEDICINE TESTING: Last ECHO Result Conclusion ECHO Collected: 04/12/2023 10:53 AM (Final result) Impression: CONCLUSIONS: - Exam indication: Afib; Cardiomyopathy - The left ventricle is normal in size. Left ventricular systolic function is normal. EF = 58 5% (2D biplane) Normal left ventricular diastolic function. - The right ventricle is normal in size. Right ventricular systolic function is normal. - The left atrial cavity is severely dilated. - The right atrial cavity is dilated. - There is mild (1+) tricuspid regurgitation. - The patient has not had a prior CC echocardiographic exam for comparison. * * * Final * * * I have personally reviewed the Electrocardiogram, Laboratory Testing, and Echocardiogram. ASSESSMENT/ IMPRESSION: Ms. Storm is a 78 year old female who presents today post op follow up. She is s/p PFA atrial fibrillation ablation on 07/03/23. She is an an established patient of Dr. Rodarte . 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 On 07/03/23 she underwent PFA atrial fibrillation ablation. On July 13, she developed nausea, vomiting and diarrhea. Stool sample confirmed c-diff. She has beentreated with antibiotics with out relief. Recently, she was started on oral vancomycin. She presents in sinus rhythm with complaints of having no energy. When in atrial fibrillation/flutter, she notes shortness of breath, activity in tolerance,and fatigue. She does not endorse recurrentatrial fibrillation since ablation. She denies chest pain, shortness of breath, orthopnea, cough, edema, palpitations, PND, lightheadedness or syncope. Previously she exercises daily but has been iunable to complete her daily one mile walk or aerobic exercise due no energy she does not use tobacco products or elicit substances. Her skin and scalp appears burned. She reports this is from the sun and amiodarone Persistent Atrial fibrillation/ Typical atrial flutter - Onset: 2022 - Symptoms shortness of breath, activity in tolerance,and fatigue - Triggers:none identified - LVEF 58% LAV 90 mL 54 ml/m +1 TR - TSH none on file - S/P cardioversion with ERAF - S/P PVI+ PW +CTI PFA abaltion 07/03/23 - Previously on amiodaorne discontinued post ablation CHADS2-Vasc Score Breakdown 3 Total Score 1 Female 2 Age >= 75 years old - Risk factor modification - Diet and wt management - Increase activity as tolerated - HTN control Chronic Anticoagulation - Stroke prevention in atrial fibrillation - On apixaban therapy PLAN AND RECOMMENDATIONS: - Follow up post ablation pathway June 2024 - Stop amiodarone - Continue apixaban - Change metoprolol tartrate to metoprolol succinate - Continue to follow with PCP/GI for management of lingering C-diff infection CONTACT INFORMATION: Luis F Bravo APRN.CNP Pacing and Electrophysiology [address]/ Desk J2-2 Appointment:[phone] Dr. Bear Rodarte's office To schedule an appointment please call -- [phone] Other questions or concerns please call his office at-- [phone] Fax#: [phone] EP outside records and Care Everywhere Reviewed 1. How often on average, does your irregular heart rhythm (atrial fibrillation) occur? Not applicable, I have not had an irregular heart rhythm since my ablation 2. How long on average, do the episodes of the irregular heart rhythm last? Not applicable, I have not had an irregular heart rhythm since my ablation 3. How often have you been bothered by this symptom in the past 4 weeks? Palpitations: none, Shortness of breath at rest: none, Shortness of breath during physical activity: a little, Exercise intolerance (fatigue during mild physical activity): a lot, Fatigue at rest: none, Lightheadedness/dizziness: none, and Chest pain or pressure: none 4. Have you had an inpatient hospital admission within 30 days of your procedure? No Luis F Bravo APRN.CNP Record recurrences on or prior to the follow-up date but after the date of the previous follow-up (or after ablation date if this is the first follow-up) Palpitations: No AFib: No Aflutter: No AT or SVT: No Is patient currently in atrial fibrillation? No Arrhythmia recurrence beyond the blanking period: Not applicable One year success off AAD Not applicable Luis F Bravo APRN.CNP documented in this encounterS[facility]24 NoteHNO ID: [id number] Author: LUIS F BRAVO APRN.CNP Service: ? Author Type: Nurse Practitioner Type: Progress Notes Filed: 10/03/2023 21:35 Note Text: [facility] Department of Cardiovascular Medicine SECTION OF CARDIAC PACING and ELECTROPHYSIOLOGY OUTPATIENT VISIT DATE October 03, 2023 OUTPATIENT VISIT TYPE EST PRIMARY CARE PHYSICIAN: Rachna Acosta [address] [place] [address] REFERRING PHYSICIAN: Bear Rodarte [address] [facility] [id number] CHIEF COMPLAINT: Post op HISTORY OF PRESENT ILLNESS: Ms. Storm is a 78 year old female who presents today post op follow up. She is s/p PFA atrial fibrillation ablation on 07/03/23. She is an an established patient of Dr. Rodarte . 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 On 07/03/23 she underwent PFA atrial fibrillation ablation. On July 13, she developed nausea, vomiting and diarrhea. Stool sample confirmed c-diff. She has been treated with antibiotics with out relief. Recently, she was started on oral vancomycin. She presents in sinus rhythm with complaints of having no energy. When in atrial fibrillation/flutter, she notes shortness of breath, activity in tolerance,and fatigue. She does not endorse recurrent atrial fibrillation since ablation. She denies chest pain, shortness of breath, orthopnea, cough, edema, palpitations, PND, lightheadedness or syncope. Previously she exercises daily but has been iunable to complete her daily one mile walk or aerobic exercise due no energy she does not use tobacco products or elicit substances. Her skin and scalp appears burned. She reports this is from the sun and amiodarone PAST MEDICAL HISTORY No date: A-fib (HCC) No date: Atrial fibrillation (HCC) No date: Atrial flutter (HCC) No date: Carcinoma in situ of breast No date: Compression fracture of lumbar vertebra 08/12/2014: Encounter for routine adult health examination 06/09/2014: Malignant neoplasm of upper-inner quadrant of left female breast Comment: left breast, stage 1 triple negative No date: Pleural effusion No date: Primary cardiomyopathy (HCC) Comment: NonischemicPAST SURGICAL HISTORY No date: BREAST LUMPECTOMY HX 2014: CATARACT EXTRACTION HX; Right No date: INTRAOP SENTINEL LYMPH NODE ID W/DYE INJECTION 2011: PAST SURGICAL HISTORY OF; Left Comment: conor in left leg from fracture No date: TONSILLECTOMY HX SOCIAL HISTORY Social History Tobacco Use Smoking status: Former Years: 40 Types: Cigarettes Start date: 1976 Quit date: 2016 Years since quittin.6 Smokeless tobacco: Never Tobacco comments: 3 cigarettes/day Vaping Use Vaping Use: Never used Substance Use Topics Alcohol use: Yes Alcohol/week: 10.0 standard drinks of alcohol Types: 10 Glasses of wine per week Drug use: No FAMILY HISTORY Problem Relation Age of Onset Cancer Mother Stomach, age 40's Heart Father [place] No Known Problems Sister Heart Brother [place] other (no other known family hx of breast cancer) Other ALLERGIES: ALLERGIES No Known Allergies MEDICATIONS: Current Outpatient Medications Medication Sig triamcinolone acetonide (KENALOG) 0.1 % cream Apply to affected area as needed. vancomycin (VANCOCIN) 125 mg capsule Take 125 mg by mouth four times daily. LORazepam (ATIVAN) 0.5 mg Take 0.5 mg by mouth two times a day as needed (anxiety). furosemide (LASIX) 20 mg tablet Take 1 tablet by mouth once daily. ENTRESTO 24-26 mg tablet Take 1 tablet by mouth two times a day. FARXIGA 10 mg tablet Take 10 mg by mouth daily with breakfast. apixaban (ELIQUIS) 5 mg tab(s) Take 5 mg by mouth two times a day. No current facility-administered medications for this visit. REVIEW OF SYSTEMS: General, constitutional: Weight loss or gain- No, Fever or chills-No, Weakness-No, Trouble sleeping-No. Head, Eyes, Ears, Mouth: Headache, head injury-No, Glasses or contact lenses-No, Pain-No, Impaired vision-No, Decreased hearing-No, Ringing in ears-No, Nose bleeds-No, Dental difficulties-No, Bleeding gums-No, Dentures-No. Neck: Swelling-No, Pain-No, Stiffness-No. Respiratory: Cough-No, Spitting up blood-No, Shortness of breath-No, Wheezing or asthma-No. Musculoskeletal: Muscle or joint pain or stiffness-No, Joint swelling-No. Gastrointestinal: Difficulty swallowing-No, Heartburn-No, Change in bowel habits-No, Blood in stool, Dark black stools-No. Neurological/Psychiatric: Weakness, para (more content not included)...[facility]06-06-2024 NoteHNO ID: [id number] Author: ?, ?, ? Service: ? Author Type: ? Type: Progress Notes Filed: 07/25/2023 12:03 Note Text: Incidental Lung Nodule Enrollment Outreach attempt: 3rd Attempt Outreach status: Complete Enrolled in Lung Nodule program: No Declined reason: Other Lung Nodule Program Location: [place] Two letter attempts, no response. Discharge letter sent.[facility]06-06-2024 History of Present illness Narrative* Carole Kilgore - 07/25/2023 12:01 PM EDT Incidental Lung Nodule Enrollment Outreach attempt: 3rd Attempt Outreach status: Complete Enrolled in Lung Nodule program: No Declined reason: Other Lung Nodule Program Location: [place] Two letter attempts, no response. Discharge letter sent. documented in this encounterS[facility]06-[facility]24 NotePatient Outreach ([facility]) CRISELDA STORM ([id number]) 1945 F Date Time Provider Department 07/25/23 CAROLE KILGORE During your visit today, we recorded the following information about you: Carole Kilgore 07/25/2023 12:03 PM Signed Incidental Lung Nodule Enrollment Outreach attempt: 3rd Attempt Outreach status: Complete Enrolled in Lung Nodule program: No Declined reason: Other Lung Nodule Program Location: [place] Two letter attempts, no response. Discharge letter sent. Allergies As of Date: 07/25/2023 (No Known Allergies) Date Reviewed: 07/03/2023 Reviewed by: Makenzie Borden RN - Fully Assessed Prescriptions as of 07/25/2023 - furosemide (LASIX) 20 mg tablet Take 1 tablet by mouth once daily. - amiodarone (PACERONE) 200 mg tablet Take 1 tablet by mouth once daily. - ENTRESTO 24-26 mg tablet Take 1 tablet by mouth two times a day. - FARXIGA 10 mg tablet Take 10 mg by mouth daily with breakfast. - apixaban (ELIQUIS) 5 mg tab(s) Take 5 mg by mouth two times a day. - metoprolol tartrate, short acting, (LOPRESSOR) 50 mg tablet Take 50 mg by mouth two times a day. Problem List As Of Date 07/25/2023 Noted Resolved Generalized anxiety disorder [F41.1] 05/18/2015 Breast cancer (HCC) [C50.919] 04/09/2023 Hyperlipidemia [E78.5] 12/11/2021 Compression fracture of T12 vertebra with routi*04/09/2023 Age-related osteoporosis without current pathol*05/18/2015 Dilated cardiomyopathy (HCC) [I42.0] 04/09/2023 Letter Text Encounter Status:Closed by CAROLE KILGORE on 07/25/23[facility] 07-17-2023 NoteHNO ID: [id number] Author: ?, ?, ? Service: ? Author Type: ? Type: Progress Notes Filed: 07/17/2023 08:16 Note Text: Incidental Lung Nodule Enrollment Outreach attempt: 2nd Attempt Outreach status: Complete Enrolled in Lung Nodule program: Referred Lung Nodule outreach: Needs outreach Lung Nodule Program [facility] [place] [facility] [place] History of Present illness Narrative* Carole Kilgore - 07/17/2023 8:15 AM EDT Incidental Lung Nodule Enrollment Outreach attempt: 2nd Attempt Outreach status: Complete Enrolled in Lung Nodule program: Referred Lung Nodule outreach: Needs outreach Lung Nodule Program Location: [facility] letter attempts documented in this encounterScci Hospital [facility]05-29-2024 NotePatient Outreach (PULMMN) CRISELDA STORM ([id number]) 1945 F Date Time Provider Department 07/17/23 CAROLE KILGORE During your visit today, we recorded the following information about you: Carole Kilgore 07/17/2023 8:16 AM Signed Incidental Lung Nodule Enrollment Outreach attempt: 2nd Attempt Outreach status: Complete Enrolled in Lung Nodule program: Referred Lung Nodule outreach: Needs outreach Lung Nodule Program Location: [facility] letter attempts Allergies As of Date: 07/17/2023 (No Known Allergies) Date Reviewed: 07/03/2023 Reviewed by: Makenzie Borden RN - Fully Assessed Prescriptions as of 07/17/2023 - furosemide (LASIX) 20 mg tablet Take 1 tablet by mouth once daily. - amiodarone (PACERONE) 200 mg tablet Take 1 tablet by mouth once daily. - ENTRESTO 24-26 mg tablet Take 1 tablet by mouth two times a day. - FARXIGA 10 mg tablet Take 10 mg by mouth daily with breakfast. - apixaban (ELIQUIS) 5 mg tab(s) Take 5 mg by mouth two times a day. - metoprolol tartrate, short acting, (LOPRESSOR) 50 mg tablet Take 50 mg by mouth two times a day. Problem List As Of Date 07/17/2023 Noted Resolved Generalized anxiety disorder [F41.1] 05/18/2015 Breast cancer (HCC) [C50.919] 04/09/2023 Hyperlipidemia [E78.5] 12/11/2021 Compression fracture of T12 vertebra with routi*04/09/2023 Age-related osteoporosis without current pathol*05/18/2015 Dilated cardiomyopathy (HCC) [I42.0] 04/09/2023 Letter Text Letter Text Encounter Status:Closed by CAROLE KILGORE on 07/17/23[facility]05-22-2024 NoteHNO ID: [id number] Author: DEISY CLEMENTE APRN.CNP Service: ? Author Type: Nurse Practitioner Type: Progress Notes Filed: 07/10/2023 07:51 Note Text: Lung Nodule Actionable Findings Outreach Encounter Encounter created for incidentally detected lung nodule(s): Date of imagin06/26/2023 Type of Imaging: ct pulmonary vein Indication for Imaging: a fib intervention planning Lung Nodule(s) Reported: --stable small left sided pleural effusion with adjacent atelectasis, scattered areas of fibrotic changes and atelectasis in the upper lobes--appears persistent from remote imaging in 2015 I left a voicemail and office number asking for call back to review nodules. Recommend pulmonary referral to follow up on findings. Will have our team mail letter as well to review findings. Deisy Clemente NP Incidental Lung Nodule Enrollment Outreach attempt: 1st Attempt Outreach status: Left message Enrolled in Lung Nodule program: Referred Lung Nodule outreach: Needs outreach Lung Nodule Program [facility]05-22-2024 History of Present illness Narrative* Deisy Clemente APRN.CNP - 07/10/2023 7:43 AM EDT Images from the original note were not included. Lung Nodule Actionable Findings Outreach Encounter Encounter created for incidentally detected lung nodule(s): Date of imagin06/26/2023 Type of Imaging: ct pulmonary vein Indication for Imaging: a fib intervention planning Lung Nodule(s) Reported: --stable small left sided pleural effusion with adjacent atelectasis, scattered areas of fibrotic changes and atelectasis in the upper lobes--appears persistent from remote imaging in 2015 I left a voicemail and office number asking for call back to review nodules. Recommend pulmonary referral to follow up on findings. Will have our team mail letter as well to review findings. Deisy Clemente NP Incidental Lung Nodule Enrollment Outreach attempt: 1st Attempt Outreach status: Left message Enrolled in Lung Nodule program: Referred Lung Nodule outreach: Needs outreach Lung Nodule Program Location[facility] documented in this encounterS[facility]05-22-[facility]24 NotePatient Outreach ([facility]) CRISELDA STORM ([id number]) 1945 F Date Time Provider Department 07/10/23 DEISY CLEMENTE [facility] During your visit today, we recorded the following information about you: Deisy Clemente APRN.CNP 07/10/2023 7:51 AM Signed Lung Nodule Actionable Findings Outreach Encounter Encounter created for incidentally detected lung nodule(s): Date of imagin06/26/2023 Type of Imaging: ct pulmonary vein Indication for Imaging: a fib intervention planning Lung Nodule(s) Reported: --stable small left sided pleural effusion with adjacent atelectasis, scattered areas of fibrotic changes and atelectasis in the upper lobes--appears persistent from remote imaging in 2016 I left a voicemail and office number asking for call back to review nodules. Recommend pulmonary referral to follow up on findings. Will have our team mail letter as well to review findings. Deisy Clemente NP Incidental Lung Nodule Enrollment Outreach attempt: 1st Attempt Outreach status: Left message Enrolled in Lung Nodule program: Referred Lung Nodule outreach: Needs outreach Lung Nodule Program Location: [facility] Allergies As of Date: 07/10/2023 (No Known Allergies) Date Reviewed: 07/03/2023 Reviewed by: Makenzie Borden RN - Fully Assessed Reason for Visit: Lung Nodule Actionable Findings Outreach Encounter [Other] Prescriptions as of 07/10/2023 - furosemide (LASIX) 20 mg tablet Take 1 tablet by mouth once daily. - amiodarone (PACERONE) 200 mg tablet Take 1 tablet by mouth once daily. - ENTRESTO 24-26 mg tablet Take 1 tablet by mouth two times a day. - FARXIGA 10 mg tablet Take 10 mg by mouth daily with breakfast. - apixaban (ELIQUIS) 5 mg tab(s) Take 5 mg by mouth two times a day. - metoprolol tartrate, short acting, (LOPRESSOR) 50 mg tablet Take 50 mg by mouth two times a day. Problem List As Of Date 07/10/2023 Noted Resolved Generalized anxiety disorder [F41.1] 05/18/2015 Breast cancer (HCC) [C50.919] 04/09/2023 Hyperlipidemia [E78.5] 12/11/2021 Compression fracture of T12 vertebra with routi*04/09/2023 Age-related osteoporosis without current pathol*05/18/2015 Dilated cardiomyopathy (HCC) [I42.0] 04/09/2023 Letter Text Letter Text Encounter Status:Closed by DEISY CLEMENTE on 07/10/23[facility] 07-05-2023 History of Present illness Narrative* Carole Kilgore - 07/05/2023 3:32 PM EDT Patient Discharged from Hospital Needs outreach documented in this encounterScci Hospital [facility]05-17-2024 NoteHNO ID: [id number] Author: ?, ?, ? Service: ? Author Type: ? Type: Progress Notes Filed: 07/05/2023 15:32 Note Text: Patient Discharged from [facility] [place] NotePatient Outreach ([facility]) CRISELDA STORM ([id number]) 1945 F Date Time Provider Department 07/05/23 CAROLE KILGORE During your visit today, we recorded the following information about you: Carole Kilgore 07/05/2023 3:32 PM Signed Patient Discharged from Hospital Needs outreach Allergies As of Date: 07/05/2023 (No Known Allergies) Date Reviewed: 07/03/2023 Reviewed by: Makenzie Borden RN - Fully Assessed Prescriptions as of 07/05/2023 - furosemide (LASIX) 20 mg tablet Take 1 tablet by mouth once daily. - amiodarone (PACERONE) 200 mg tablet Take 1 tablet by mouth once daily. - ENTRESTO 24-26 mg tablet Take 1 tablet by mouth two times a day. - FARXIGA 10 mg tablet Take 10 mg by mouth daily with breakfast. - apixaban (ELIQUIS) 5 mg tab(s) Take 5 mg by mouth two times a day. - metoprolol tartrate, short acting, (LOPRESSOR) 50 mg tablet Take 50 mg by mouth two times a day. Problem List As Of Date 07/05/2023 Noted Resolved Generalized anxiety disorder [F41.1] 05/18/2015 Breast cancer (HCC) [C50.919] 04/09/2023 Hyperlipidemia [E78.5] 12/11/2021 Compression fracture of T12 vertebra with routi*04/09/2023 Age-related osteoporosis without current pathol*05/18/2015 Dilated cardiomyopathy (HCC) [I42.0] 04/09/2023 Encounter Status:Closed by CAROLE KILGORE on 07/05/23[facility]05-16-2024 NoteHNO ID: [id number] Author: ?, ?, ? Service: ? Author Type: ? Type: Progress Notes Filed: 07/04/2023 10:44 Note Text: TRANSMITTER INSTRUCTIONS Patient Name: Criselda Storm [facility] Number: [id number] Fresh battery inserted in monitor Patient instructed 1.) Scheduled and Symptomatic recording instructions 2.) Usage of event button and/or transmission instructions 3.) Maintenance and care of monitor 4.) Prefer land line or select mobile phones 5.) Return unit at the end of prescribed order 6.) Call with problems [phone] OR [phone] Patient expresses good verbal understanding of instructions Suzi Ro [facility]05-16-2024 History of Present illness Narrative* Suzi Puente - 07/04/2023 10:43 AM EDT TRANSMITTER INSTRUCTIONS Patient Name: Criselda Storm [facility] Number: [id number] Fresh battery inserted in monitor Patient instructed 1.) Scheduled and Symptomatic recording instructions 2.) Usage of event button and/or transmission instructions 3.) Maintenance and care of monitor 4.) Prefer land line or select mobile phones 5.) Return unit at the end of prescribed order 6.) Call with problems [phone] OR [phone] Patient expresses good verbal understanding of instructions Suzi Denny documented in this encounterS[facility]05-16-2024 Telephone encounter Note * Telephone Encounter - Ani Velasquez RN - 07/04/2023 10:03 AM EDT Pt contacted for discharge follow up from recent hospital stay. Pt verified name and and informed that call was on a recorded line. Pt denies any questions or concerns since discharge yesterday. Closing comments given including reminder of 24 hour nurse resource line in discharge paperwork. [facility] Miscellaneous Notes* Telephone Encounter - Ani Velasquez RN - 07/04/2023 10:03 AM EDT Pt contacted for discharge follow up from recent hospital stay. Pt verified name and and informed that call was on a recorded line. Pt denies any questions or concerns since discharge yesterday. Closing comments given including reminder of 24 hour nurse resource line in discharge paperwork. documented in this encounterS[facility]05-15-2024 NoteHNO ID: [id number] Author: EVETTE HALL PA-C Service: ? Author Type: Physician [employer] Teacher Type: Progress Notes Filed: 07/03/2023 14:36 Note Text: Incidental Lung Nodule Enrollment Outreach attempt: 1st Attempt Outreach status: Complete Enrolled in Lung Nodule program: Referred Lung Nodule outreach: No outreach - Inpatient Lung Nodule Program Location: [facility] [place]05-15-2024 History of Present illness Narrative* Evette Hall PA-C - 07/03/2023 2:36 PM EDT Incidental Lung Nodule Enrollment Outreach attempt: 1st Attempt Outreach status: Complete Enrolled in Lung Nodule program: Referred Lung Nodule outreach: No outreach - Inpatient Lung Nodule Program Location: [place] documented in this [facility]05-15-2024 NoteHNO ID: [id number] Author: BOSSMAN LONDONO MD Service: Cardiovascular Medicine Author Type: Fellow Type: Plan of Care Filed: 07/03/2023 11:08 Note Text: BRIEF PROCEDURE NOTE: Procedure: PVI Start time: July 03, 2023, 9:15 AM End time: July 03, 2023, 11:07 AM Primary Surgeon: Bear Rodarte MD [employer] Teacher: Bossman Londono MD Outcome: success Access: 17Fr RFV 9Fr LFV 7Fr LFV Closed with perclose, vascade Procedural findings AND Complications: none Estimated Blood loss: 10cc's Specimen(s) removed: None Postoperative Diagnosis: AF Plan: - Bedrest for 4 hours - Pressure dressings for 4 hours - Aspirin 324mg and Eliquis to be given in PACU (EP lab vs PACU) - No changes to outpatient medications upon discharge - Same day discharge Full report to follow in [facility] (Under Chart Review -> Cardiac) Bossman Londono MD Cardiac Electrophysiology Fellow, PGY-8 Personal pager/cell: [phone] 07/03/2023 11:07 AM Please note: This note was written using Pure Focus dictation software. Please excuse typos and [id number] that the dictation may have mistakenly made. For communication after 5 pm on weekdays and after 12 pm on weekends, please page the following: - Clinical Cardiology patients on all floors: page [phone] - All other patients: after hours SORAYA (found in the On-Call directory by searching SORAYA) - For any urgent or emergent [place], [place] [phone] [facility] [place]05-15-2024 NoteHNO ID: [id number] Author: STEPHANIE NOGUEIRA APRN.BACK UP WORKER Service: ? Author Type: Nurse Blow Pit Operator Type: Anesthesia Procedure Notes Filed: 07/03/2023 08:59 Note Text: ANESTHESIOLOGY PROCEDURE NOTE Airway General Information Procedure Start Time/Medication Administration: 07/03/2023 8:36 AM Procedure End Time: 07/03/2023 8:39 AM Patient location during procedure: OR Timeout Performed Pre-procedure: timeout performed Consent Obtained: Yes Patient identity confirmed: arm band and patient Staffing BACK UP WORKER: Stephanie Nogueira APRN.BACK UP WORKER Performed by: ARIADNA Indications and Patient Condition Indications for airway management: anesthesia Preoxygenated: yes anesthesia circuit Method: sleep Difficult Mask: No Final Airway Details Final airway type: endotracheal airway Final Endotracheal Airway: ETT Cuffed: yes Successful intubation technique: video laryngoscopy Devices used: Fitfully Endotracheal tube insertion site: oral Blade size: #3 ETT size (mm): 7.0 Measured from: lips Measurement (cm): 22 Placement verified by: capnometry Cormack-Lehane Classification: grade I - full view of glottis Number of attempts at approach: 1 Airway not difficult SIGNATURE: Stephanie Nogueira APRN.CRNA PATIENT NAME: Criselda Storm DATE: July 03, 2023 TIME: 8:58 AM [facility]: [id number] NoteHNO ID: [id number] Author: STEPHANIE NOGUEIRA APRN.BACK UP WORKER Service: ? Author Type: Nurse Blow Pit Operator Type: Anesthesia Procedure Notes Filed: 07/03/2023 08:58 Note Text: ANESTHESIOLOGY PROCEDURE NOTE PIV General Information Procedure Start Time/Medication Administration: 07/03/2023 8:38 AM Procedure End Time: 07/03/2023 8:40 AM Patient Location: OR Staffing BACK UP WORKER: Kimberly Nash APRN.BACK UP WORKER Performed by: ARIADNA Preparation Sterility Preparation: hand hygiene performed prior to procedure, surgical cap used, mask used, skin prep agent completely dried prior to procedure Sterility Technique Not Completely Performed Due to Extreme Emergency: No Site Prep: alcohol Procedure Details Indication: need for IV access Needle Size/Type: 16 gauge angiocath Orientation: Right Location: Wrist Imaging Guidance Used: No SIGNATURE: Stephanie Nogueira APRN.CRNA PATIENT NAME: Criselda Storm DATE: July 03, 2023 TIME: 8:57 AM CSN: [id number] NotePatient Outreach (PMNA11) CRISELDA STORM ([id number]) 1945 F Date Time Provider Department 07/03/23 EVETTE HALL PMNA11 During your visit today, we recorded the following information about you: Evette Hall PA-C 07/03/2023 2:36 PM Signed Incidental Lung Nodule Enrollment Outreach attempt: 1st Attempt Outreach status: Complete Enrolled in Lung Nodule program: Referred Lung Nodule outreach: No outreach - Inpatient Lung Nodule Program Location: [place] Allergies As of Date: 07/03/2023 (No Known Allergies) Date Reviewed: 07/03/2023 Reviewed by: Makenzie Borden RN - Fully Assessed Prescriptions as of 07/03/2023 - furosemide (LASIX) 20 mg tablet Take 1 tablet by mouth once daily. - amiodarone (PACERONE) 200 mg tablet Take 1 tablet by mouth once daily. - ENTRESTO 24-26 mg tablet Take 1 tablet by mouth two times a day. - FARXIGA 10 mg tablet Take 10 mg by mouth daily with breakfast. - apixaban (ELIQUIS) 5 mg tab(s) Take 5 mg by mouth two times a day. - metoprolol tartrate, short acting, (LOPRESSOR) 50 mg tablet Take 50 mg by mouth two times a day. Facility-Administered Medications as of 07/03/2023 - NaCl 0.9% iv infusion - fentaNYL 50 mcg/mL 25-50 mcg injection (SUBLIMAZE) - acetaminophen 650 mg tab(s) (TYLENOL) - NaCl 0.9% iv flush bag - apixaban 5 mg tab(s) (ELIQUIS) Problem List As Of Date 07/03/2023 Noted Resolved Generalized anxiety disorder [F41.1] 05/18/2015 Breast cancer (HCC) [C50.919] 04/09/2023 Hyperlipidemia [E78.5] 12/11/2021 Compression fracture of T12 vertebra with routi*04/09/2023 Age-related osteoporosis without current pathol*05/18/2015 Dilated cardiomyopathy (HCC) [I42.0] 04/09/2023 Encounter Status:Closed by EVETTE HALL on 07/03/23[facility] [place]05-14-2024 NoteHNO ID: [id number] Author: KIMBERLY GUZMAN RN Service: ? Author Type: Registered Nurse Type: Progress Notes Filed: 07/02/2023 11:24 Note Text: THE FOLLOWING WAS EVALUATED Motivation To Learn: Interested Family/Significant Other Support: Unable to assess - Family not present Cognitive Ability: Alert and oriented Patient Learns Best By: Verbal Instruction The Following Influencing Factors Were Barriers To This Education Session: None The Following Physical Limitations Were Barriers To This Education Session: None Instruction Provided To: Patient Procedure: Pulmonary Vein Ablation/Isolation Pre-procedure information reviewed: Patient ID verified Procedure verified Physician verified Explanation of procedure Sedation level during procedure MD medication instructions from EP lab request: [Patient is on Eliquis, instructed to continue without interruption, hold dose the morning of procedure, stated understanding. Patient also instructed to hold Farxiga for 3 days prior to procedure per anesthesia guidelines.] Patient denies any missed doses of Eliquis in the past 3 weeks. Travel instructions/restrictions Scheduling information Possible same day discharge versus overnight hospital stay Check out time Family waiting area Physician contact with family after procedure Post Procedure Expectations reviewed: Inpatient hospital stay Post procedure antiarrhythmics and anticoagulation will be discussed with Physician, nurse practitioner or Physician senior agricultural assistant upon discharge Instructions for transmitting EKG to Monitoring Center 3 month follow up instructions Contact number for information and questions Patient Evaluation: Verbalizes understanding Follow Up Plan: Follow up as directed by MD. Supplemental Material Given: Written Material Patient education RE: Radiation Exposure. Instructed By Kimberly Guzman RN. In Department of CARDIOLOGY.[facility] [place]05-14-2024 History of Present illness Narrative* Kimberly Guzman RN - 07/02/2023 11:20 AM EDT THE FOLLOWING WAS EVALUATED Motivation To Learn: Interested Family/Significant Other Support: Unable to assess - Family not present Cognitive Ability: Alert and oriented Patient Learns Best By: Verbal Instruction The Following Influencing Factors Were Barriers To This Education Session: None The Following Physical Limitations Were Barriers To This Education Session: None Instruction Provided To: Patient Procedure: Pulmonary Vein Ablation/Isolation Pre-procedure information reviewed: Patient ID verified Procedure verified Physician verified Explanation of procedure Sedation level during procedure MD medication instructions from EP lab request: [Patient is on Eliquis, instructed to continue without interruption, hold dose the morning of procedure, stated understanding. Patient also instructed to hold Farxiga for 3 days prior to procedure per anesthesia guidelines.] Patient denies any missed doses of Eliquis in the past 3 weeks. Travel instructions/restrictions Scheduling information Possible same day discharge versus overnight hospital stay Check out time Family waiting area Physician contact with family after procedure Post Procedure Expectations reviewed: Inpatient hospital stay Post procedure antiarrhythmics and anticoagulation will be discussed with Physician, nurse practitioner or Physician senior agricultural assistant upon discharge Instructions for transmitting EKG to Monitoring Center 3 month follow up instructions Contact number for information and questions Patient Evaluation: Verbalizes understanding Follow Up Plan: Follow up as directed by MD. Supplemental Material Given: Written Material Patient education RE: Radiation Exposure. Instructed By Kimberly Guzman RN. In Department of CARDIOLOGY. [facility] NoteEducation (EPSMN) CRISELDA STORM ([id number]) 1945 F Date Time Provider Department 07/02/23 BEAR RODARTE EPSMN Reason for Visit: Patient Education [91] Cmt: EPS - PVI/ AFL RFA During your visit today, we recorded the following information about you: Allergies As of Date: 07/02/2023 (No Known Allergies) Date Reviewed: 06/26/2023 Reviewed by: Tisha Araujo APRN.CNP - Fully Assessed Prescriptions as of 07/02/2023 - furosemide (LASIX) 20 mg tablet Take 1 tablet by mouth once daily. - amiodarone (PACERONE) 200 mg tablet Take 1 tablet by mouth once daily. - ENTRESTO 24-26 mg tablet Take 1 tablet by mouth two times a day. - FARXIGA 10 mg tablet Take 10 mg by mouth daily with breakfast. - apixaban (ELIQUIS) 5 mg tab(s) Take 5 mg by mouth two times a day. - metoprolol tartrate, short acting, (LOPRESSOR) 50 mg tablet Take 50 mg by mouth two times a day. Encounter Status:Closed by KIMBERLY GUZMAN on 07/02/23[facility] [place] 06-26-2023 History of Present illness Narrative* Tisha Araujo APRN.ELISE - 06/26/2023 3:00 PM EDT Images from the original note were not included. [facility] Department of Cardiovascular Medicine SECTION OF CARDIAC PACING and ELECTROPHYSIOLOGY OUTPATIENT VISIT DATE June 26, 2023 OUTPATIENT VISIT TYPE ESTABLISHED PRIMARY CARE PHYSICIAN: Rachna Acosta [address] [place] [address] Audio Operator: Dr. Melchor REFERRING PHYSICIAN: Self CHIEF COMPLAINT: I am nervous HISTORY OF PRESENT ILLNESS: Ms. Storm is a 78 year old female who presents today for follow-up visit for atrial arrhythmias. She is an established patient of Dr. Rodarte and was last seen in the office April 09, 2023 as a new patient. At the last visit, an echo was ordered to reassess her ejection fraction and rhythm management was discussed. It was decided she would remain on amiodarone with ablation if her EF normalized. 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 After her office visit in March, she had an echo at [facility] which revealed EF had normalized to 58% with normal LV and RV systolic function. She was scheduled for ablation which is July 03, 2023. She had a few DCC in the past resulting to recurrent Afib within a week even on amiodarone. However, she self converted on amiodarone after a failed DCC 02/2023. She is not aware of episodes of Afib,but overall, she notices more energy and feels better than in the Fall when she was in AF. She does admit to fatigue. Her daughter notices heart rates in the 40-50s at times. She denies chest pain, orthopnea, cough, edema, palpitations, PND, lightheadedness or syncope. She admits to BRAMBILA. PAST CARDIAC HISTORY: See above PAST MEDICAL HISTORY Diagnosis Date A-fib (HCC) Atrial fibrillation (HCC) Atrial flutter (HCC) Carcinoma in situ of breast Compression fracture of lumbar vertebra Encounter for routine adult health examination 08/12/2014 Malignant neoplasm of upper-inner quadrant of left female breast 06/09/2014 left breast, stage 1 triple negative Pleural effusion Primary cardiomyopathy (HCC) Nonischemic PAST SURGICAL HISTORY Procedure Laterality Date BREAST LUMPECTOMY HX CATARACT EXTRACTION HX Right 2013 INTRAOP SENTINEL LYMPH NODE ID W/DYE INJECTION PAST SURGICAL HISTORY OF Left 2011 conor in left leg from fracture TONSILLECTOMY HX SOCIAL HISTORY Social History Tobacco Use Smoking status: Former Years: 41 Types: Cigarettes Start date: 1976 Quit date: 2016 Years since quittin.3 Smokeless tobacco: Never Tobacco comments: 3 cigarettes/day Vaping Use Vaping Use: Never used Substance Use Topics Alcohol use: Yes Alcohol/week: 10.0 standard drinks of alcohol Types: 10 Glasses of wine per week Drug use: No FAMILY HISTORY Problem Relation Age of Onset Cancer Mother Stomach, age 40's Heart Father [place] No Known Problems Sister Heart Brother [place] other (no other known family hx of breast cancer) Other ALLERGIES: ALLERGIES No Known Allergies MEDICATIONS: amiodarone (PACERONE) 200 mg tablet Take 1 tablet by mouth once daily. apixaban (ELIQUIS) 5 mg tab(s) Take 5 mg by mouth two times a day. furosemide (LASIX) 20 mg tablet Take 1 tablet by mouth once daily. ENTRESTO 24-26 mg tablet Take 1 tablet by mouth two times a day. FARXIGA 10 mg tablet Take 10 mg by mouth daily with breakfast. metoprolol tartrate, short acting, (LOPRESSOR) 50 mg tablet Take 50 mg by mouth two times a day. REVIEW OF SYSTEMS: General, constitutional: Weight loss or gain- No, Fever or chills-No, Weakness- No, Trouble sleeping-No. Head, Eyes, Ears, Mouth: Headache, head injury-No, Glasses or contact lenses-No, Pain-No, Impaired vision-No, Decreased hearing-No, Ringing in ears-No, Nose bleeds-No, Dental difficulties-No, Bleeding gums-No, Dentures-No. Neck: Swelling-No, Pain-No, Stiffness-No. Respiratory: Cough-No, Spitting up blood-No, Shortness of breath-Yes, Wheezing or asthma-Yes. Musculoskeletal: Muscle or joint pain or stiffness-No, Joint swelling-No. Gastrointestinal: Difficulty swallowing-No, Heartburn-No, Change in bowel habits-No, Blood in stool, Dark black stools-No. Neurological/Psychiatric: Weakness, paralysis-No, Numbness-No, Tingling-No, Tremor-No, Nervousness or anxiety-No, Depressed mood-No, Memory loss-No. Skin: Rash-No, Itching-No. Hematological: Easy bruising-No, Easy bleeding-No. Endocrine: Heat or cold intolerance-No, Excessive sweating-No, Frequent urination-No, Frequent thirst-No. PHYSICAL EXAMINATION: BP 130/68 Pulse 60 Ht 161.3 cm (5' 3.5) Wt 56.7 kg (125 lb) BMI 21.80 kg/m General appearance: Well appearing, alert, in no acute distress, well-hydrated, well nourished. Skin: (+)duane/blue toned nose. Skin color, texture, turgor normal, no suspicious rashes or lesions Head: Normocephalic, no masses, lesions, tenderness or abnormalities Eyes: Anicteric sclera. Pupils are equally round. Extraocular movements are intact. Ears: External ears normal Nose/Sinuses: Nares normal, septum midline, no sinus tenderness Oropharynx: Lips, mucosa, and tongue normal, teeth and gums normal, oropharynx normal; uvula raisesmidline Neck: Supple, no adenopathy; no bruits (B) Back: (+) upper back slight hump. No pain to palpation, no CVA tenderness Lungs: Lungs clear to auscultation(B). No wheezing, rhonchi, rales with equal expansion Heart: RRR without murmur, gallop, or rubs. No ectopy Abdomen: Abdomen soft, non-tender. Bowel sounds x4. No masses, organomegaly Extremities: No deformities, edema, skin discoloration, clubbing or cyanosis. Good capillary refill. Musculoskeletal: No joint swelling, deformity, or tenderness. 4/5 UE & LE strength = (B) Peripheral pulses: Capillary refill <2secs, strong peripheral pulses Neuro: Gait normal. Reflexes deferred. Sensation deferred., CN III, IV, V (corneal reflex deferred), , VII (taste deferred), XI, XII intact with good vocal quality CARDIOVASCULAR MEDICINE TESTING: EKG 06/26/2023 reviewed: Sinus Rhythm V-rate 60 bpm GA 170 ms QRS 78 ms QT/QTc 472/472 ms IMPRESSION: Ms. 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 Once she maintained a repeat echo revealed normal LV & RV systolic function and EF 58%. She continues on amiodarone and is scheduled for ablation July 03, 2023. Because of potential liver and thyroid toxicities, the patient should have LFTs and TSH checked every 3-4 months. The patient was instructed to have these obtained at those intervals either through the [facility] or through his physician's office and to call for results after each test. Should the patient have any abnormalities of these blood test or if .he should have unexplained symptoms of shortness of breath, pneumonia, or dry cough, the patient should call our office to notify us immediately. Amiodarone can also sometimes cause discoordination, imbalances and weakness of the leg muscle. Should the patient notice these symptoms, the patient should notify us or their physicians to c onsider potential amiodarone induced side effects. 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 Maintain evening dose of 50mg. If her fatigue continues, consider curring evening dose in half - Call the EP Lab [phone] on June 30 for procedure instrucionts - Continue Eliquis - Continue amiodarone - Return for follow up in September CONTACT INFORMATION: Tisha Araujo APRN.CNP [facility] NoteHNO ID: [id number] Author: TISHA ARAUJO APRN.CNP Service: ? Author Type: Nurse Practitioner Type: Progress Notes Filed: 06/26/2023 16:47 Note Text: [facility] Department of Cardiovascular Medicine SECTION OF CARDIAC PACING and ELECTROPHYSIOLOGY OUTPATIENT VISIT DATE June 26, 2023 OUTPATIENT VISIT TYPE ESTABLISHED PRIMARY CARE PHYSICIAN: Rachna Acosta [address] [place] [id number] Audio Operator: Dr. Melchor REFERRING PHYSICIAN: Self CHIEF COMPLAINT: I am nervous HISTORY OF PRESENT ILLNESS: Ms. Storm is a 78 year old female who presents today for follow-up visit for atrial arrhythmias. She is an established patient of Dr. Rodarte and was last seen in the office April 09, 2023 as a new patient. At the last visit, an echo was ordered to reassess her ejection fraction and rhythm management was discussed. It was decided she would remain on amiodarone with ablation if her EF normalized. 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 After her office visit in March, she had an echo at [facility] which revealed EF had normalized to 58% with normal LV and RV systolic function. She was scheduled for ablation which is July 03, 2023. She had a few DCC in the past resulting to recurrent Afib within a week even on amiodarone. However, she self converted on amiodarone after a failed DCC 02/2023. She is not aware of episodes of Afib, but overall, she notices more energy and feels better than in the Fall when she was in AF. She does admit to fatigue. Her daughter notices heart rates in the 40-50s at times. She denies chest pain, orthopnea, cough, edema, palpitations, PND, lightheadedness or syncope. She admits to BRAMBILA. PAST CARDIAC HISTORY: See above PAST MEDICAL HISTORY Diagnosis Date A-fib (HCC) Atrial fibrillation (HCC) Atrial flutter (HCC) Carcinoma in situ of breast Compression fracture of lumbar vertebra Encounter for routine adult health examination 08/12/2014 Malignant neoplasm of upper-inner quadrant of left female breast 06/09/2014 left breast, stage 1 triple negative Pleural effusion Primary cardiomyopathy (HCC) Nonischemic PAST SURGICAL HISTORY Procedure Laterality Date BREAST LUMPECTOMY HX CATARACT EXTRACTION HX Right 2013 INTRAOP SENTINEL LYMPH NODE ID W/DYE INJECTION PAST SURGICAL HISTORY OF Left 2010 conor in left leg from fracture TONSILLECTOMY HX SOCIAL HISTORY Social History Tobacco Use Smoking status: Former Years: 41 Types: Cigarettes Start date: 1976 Quit date: 2017 Years since quittin.3 Smokeless tobacco: Never Tobacco comments: 3 cigarettes/day Vaping Use Vaping Use: Never used Substance Use Topics Alcohol use: Yes Alcohol/week: 10.0 standard drinks of alcohol Types: 10 Glasses of wine per week Drug use: No FAMILY HISTORY Problem Relation Age of Onset Cancer Mother Stomach, age 40's Heart Father [place] No Known Problems Sister Heart Brother [place] other (no other known family hx of breast cancer) Other ALLERGIES: ALLERGIES No Known Allergies MEDICATIONS: amiodarone (PACERONE) 200 mg tablet Take 1 tablet by mouth once daily. apixaban (ELIQUIS) 5 mg tab(s) Take 5 mg by mouth two times a day. furosemide (LASIX) 20 mg tablet Take 1 tablet by mouth once daily. ENTRESTO 24-26 mg tablet Take 1 tablet by mouth two times a day. FARXIGA 10 mg tablet Take 10 mg by mouth daily with breakfast. metoprolol tartrate, short acting, (LOPRESSOR) 50 mg tablet Take 50 mg by mouth two times a day. REVIEW OF SYSTEMS: General, constitutional: Weight loss or gain- No, Fever or chills-No, Weakness-No, Trouble sleeping-No. Head, Eyes, Ears, Mouth: Headache, head injury-No, Glasses or contact lenses-No, Pain-No, Impaired vision-No, Decreased hearing-No, Ringing in ears-No, Nose bleeds-No, Dental difficulties-No, Bleeding gums-No, Dentures-No. Neck: Swelling-No, Pain-No, Stiffness-No. Respiratory: Cough-No, Spitting up blood-No, Shortness of breath-Yes, Wheezing or asthma-Yes. Musculoskeletal: Muscle or joint pain or stiffness-No, Joint swelling-No. Gastrointestinal: Difficulty swallowing-No, Heartburn-No, Change in bowel habits-No, Blood in stool, Dark black stools-No. Neurological/Psychiatric: Weakness, paralysis-No, Numbness-No, Tingling-No, Tremor-No, Nervousness or anxiety-No, Depressed mood-No, Memory loss-No. Skin: Rash-No, Itching-No. Hematological: Easy bruising-No, Easy bleeding-No. Endocrine: Heat or cold intolerance-No, Excessive sweating-No, Frequent urination-No, Frequent thirst-No. PHYSICAL EXAMINATION: BP 130/68 Pulse 60 Ht 161.3 cm (5' 3.5) Wt 56.7 kg (125 lb) BMI 21 (more content not included)...[facility] [place]05-08-2024 History of Present illness Narrative* Ann Bello RN - 06/26/2023 2:30 PM EDT Radiology Service Progress Note DATE OF SERVICE: June 26, 2023 TIME: 2:21 PM PATIENT WEIGHT: 132 LBS PATIENT IDENTITY VERIFICATION COMPLETED USING TWO (2) STANDARD IDENTIFIERS: Name and Date of confirmed by patient verbally and Name and Date of confirmed by identification band. FALL SCREENING: Has the patient had 2 falls in the last year or 1 fall with injury or currently using an Ambulatory Assistive Device (Walker, Cane, Wheelchair, Crutches, etc.)? No PATIENT GENDER DATA: Female. status: : No status: NO. ALLERGIES: Reviewed and unchanged CONTRAST ALLERGY: No EXAM: CT -CONTRAST INDUCED NEPHROPATHY RISK FACTORS: Patient age > 60 years CREATININE: Creatinine Date Value Ref Range Status 05/29/2023 0.86 0.58 - 0.96 mg/dL Final 05/20/2015 0.52 0.51 - 0.95 mg/dL Final 05/18/2015 0.49 (L) 0.51 - 0.95 mg/dL Final Estimated Glomerular Filtration Rate Date Value Ref Range Status 05/29/2023 70 >=60 mL/min/1.73m Final Comment: Estimated Glomerular Filtration Rate (eGFR) is calculated using the 2020 CKD-EPI creatinine equation. This equation utilizes serum creatinine, sex, and age as parameters. The creatinine assay has traceable calibration to isotope dilution- mass spectrometry. Refer to KDIGO guidelines for clinical interpretation. In patients with unstable renal function, e.g. those with acute kidney injury, the eGFRmay not accurately reflect actual GFR. P.O.C.T. RESULTS: N/A June 26, 2023 TREATMENT: No Hydration needed. IV SITE: Ambulatory: A peripheral IV was started in the Right forearm with a Angio cath: 20 gauge. and A Saline lock was inserted per protocol IV SITE APPEARANCE: Clean,Dry and Intact SIGNATURE: Ann Bello RN PATIENT NAME: Criselda Storm DATE: June 26, 2023 TIME: 2:21 PM * Coby Collado RT(R) - 06/26/2023 2:30 PM EDT Radiology Service Progress Note PATIENT NAME: Criselda Storm DATE OF SERVICE: June 26, 2023 TIME: 3:09 PM PATIENT IDENTITY VERIFICATION COMPLETED USING TWO (2) IDENTIFIERS: Name and Date of confirmedby patient verbally. FALL SCREENING: Has the patient had 2 falls in the last year or 1 fall with injury or currently using an Ambulatory Assistive Device (Walker, Cane, Wheelchair, Crutches, etc.)? No PATIENT GENDER DATA: Female. status: : No status: NO. PATIENT RELEVANT IMPLANT DATA REVIEWED: Yes PATIENT PRESENTS WITH AN IMPLANTABLE OR ATTACHED SULPHATE TESTER: No RADIOLOGY DEPARTMENT: CT; Exam(s) Completed: Cardiac PERIPHERAL IV DATA: Site assessment: Clean,Dry and Intact, Site disposition Discontinued SIGNED BY: RT Nemo(Julio) June 26, 2023 3:09 PM documented in this encounterS[facility]05-08-2024 NoteHNO ID: [id number] Author: ANN BELLO RN Service: Radiology Author Type: Registered Nurse Type: Progress Notes Filed: 06/26/2023 14:41 Note Text: Radiology Service Progress Note DATE OF SERVICE: June 26, 2023 TIME: 2:21 PM PATIENT WEIGHT: 132 LBS PATIENT IDENTITY VERIFICATION COMPLETED USING TWO (2) STANDARD IDENTIFIERS: Name and Date of confirmed by patient verbally and Name and Date of confirmed by identification band. FALL SCREENING: Has the patient had 2 falls in the last year or 1 fall with injury or currently using an Ambulatory Assistive Device (Walker, Cane, Wheelchair, Crutches, etc.)? No PATIENT GENDER DATA: Female. status: : No status: NO. ALLERGIES: Reviewed and unchanged CONTRAST ALLERGY: No EXAM: CT -CONTRAST INDUCED NEPHROPATHY RISK FACTORS: Patient age > 60 years CREATININE: Creatinine Date Value Ref Range Status 05/29/2023 0.86 0.58 - 0.96 mg/dL Final 05/20/2015 0.52 0.51 - 0.95 mg/dL Final 05/18/2015 0.49 (L) 0.51 - 0.95 mg/dL Final Estimated Glomerular Filtration Rate Date Value Ref Range Status 05/29/2023 70 >=60 mL/min/1.73m? Final Comment: Estimated Glomerular Filtration Rate (eGFR) is calculated using the 2020 CKD-EPI creatinine equation. This equation utilizes serum creatinine, sex, and age as parameters. The creatinine assay has traceable calibration to isotope dilution-mass spectrometry. Refer to KDIGO guidelines for clinical interpretation. In patients with unstable renal function, e.g. those with acute kidney injury, the eGFR may not accurately reflect actual GFR. P.O.C.T. RESULTS: N/A June 26, 2023 TREATMENT: No Hydration needed. IV SITE: Ambulatory: A peripheral IV was started in the Right forearm with a Angio cath: 20 gauge. and A Saline lock was inserted per protocol IV SITE APPEARANCE: Clean,Dry and Intact SIGNATURE: Ann Bello RN PATIENT NAME: Criselda Storm DATE: June 26, 2023 TIME: 2:21 [facility]05-08-2024 NoteHNO ID: [id number] Author: COBY COLLADO RT(R) Service: Radiology Author Type: Technologist Type: Progress Notes Filed: 06/26/2023 15:10 Note Text: Radiology Service Progress Note PATIENT NAME: Criselda Storm DATE OF SERVICE: June 26, 2023 TIME: 3:09 PM PATIENT IDENTITY VERIFICATION COMPLETED USING TWO (2) IDENTIFIERS: Name and Date of confirmed by patient verbally. FALL SCREENING: Has the patient had 2 falls in the last year or 1 fall with injury or currently using an Ambulatory Assistive Device (Walker, Cane, Wheelchair, Crutches, etc.)? No PATIENT GENDER DATA: Female. status: : No status: NO. PATIENT RELEVANT IMPLANT DATA REVIEWED: Yes PATIENT PRESENTS WITH AN IMPLANTABLE OR ATTACHED SULPHATE TESTER: No RADIOLOGY DEPARTMENT: CT; Exam(s) Completed: Cardiac PERIPHERAL IV DATA: Site assessment: Clean,Dry and Intact, Site disposition Discontinued SIGNED BY: RT Nemo(R) June 26, 2023 3:09 [facility]04-24-2024 Telephone encounter Note * Telephone Encounter - January Clark RN - 06/12/2023 5:10 PM EDT Patient returned call and accepted sooner procedure date of Saturday07/03/[address] Rodarte. Reviewed medication instructions with patient, patient stated understanding. Please reschedule pre op appointments to within 30 days prior of procedure. January Clark RN, RN [facility]04-24-2024 Miscellaneous Notes* Telephone Encounter - January Clark RN - 06/12/2023 5:10 PM EDT Patient returned call and accepted sooner procedure date of Saturday07/03/[address] Rodarte. Reviewed medication instructions with patient, patient stated understanding. Please reschedule pre op appointments to within 30 days prior of procedure. January Clark RN, RN * Telephone Encounter - January Clark RN - 06/12/2023 3:51 PM EDT Due to change in Dr. Rodarte's schedule, called patient and left message offering sooner date of Saturday07/03/23. Awaiting return call from patient. January Clark RN, RN documented in this encounterS[facility]04-24-2024 Telephone encounter Note * Telephone Encounter - January Clark RN - 06/12/2023 3:51 PM EDT Due to change in Dr. Rodarte's schedule, called patient and left message offering sooner date of Saturday07/03/23. Awaiting return call from patient. January Clark RN, RN [facility]04-05-2024 Miscellaneous Notes* Telephone Encounter - January Clark RN - 05/24/2023 11:01 AM EDT Patient declined date of 10/02/[address] Rodarte due to her grandson's wedding, requesting sooner date. Due to change in Dr. Rodarte's schedule, able to offer patient sooner date of Saturday07/24/[address] Rodarte. Patient is on Eliquis, instructed to continue without interruption, hold dose the morning of procedure, stated understanding. Patient also instructed to hold Farxiga for 3 days prior to procedure per anesthesia guidelines, patient stated understanding. Please schedule patient for pre op appointments within 30 days for OPD, Labs (CBC, BMP, 30 Day Type& Screen, Confirm), CT and EKG. January Clark, RN, RN * Telephone Encounter - January Clark RN - 05/24/2023 11:01 AM EDT ----- Message from Bear Rodarte MD sent at 05/16/2023 9:37 AM EDT ----- Regarding: Schedule AF/AFL ablation Patient: Criselda Storm EP Lab Procedure requested: Ablations PVI ablation CPT 43089 Anticoagulation Status: Eliquis (apixaban) Requesting Physician: Bear Rodarte MD Procedural Physician: Bear Rodarte MD Date of last H&P or Date of upcoming H&P: 05/16/23 Indications for procedure: Atrial Fibrillation and Atrial Flutter Procedure time frame: Patient convenience Current Meds: Current Outpatient Medications: amiodarone (PACERONE) 200 mg tablet FARXIGA 10 mg tablet ENTRESTO 24-26 mg tablet apixaban (ELIQUIS) 5 mg tab(s) furosemide (LASIX) 40 mg tablet metoprolol tartrate, short acting, (LOPRESSOR) 50 mg tablet input Section Potential Research Patient: No General anesthesia or Managed Anesthesia Care (MAC) needed: Yes Conscious Sedation: No Mapping Ablation: Biosense Idaz (CARTO) CT Scan needed pre-procedure: Yes ECHO needed pre-procedure: No Anticoagulation: Continue anticoagulation. Do not interrupt. Stop Antiarrhythmic: No Stop Beta Nba/ Calcium Channel Nba: No ASA: N/A Plavix: N/A Additional instructions:None Is the patient a candidate for same day d/c: Yes Bear Rodarte MD May 16, 2023 9:39 AM documented in this encounterScci Hospital [facility]03-14-2024 Miscellaneous Notes* Telephone Encounter - Terri Spears RN - 05/02/2023 2:28 PM EDT Criselda Storm returned my phone call. I reviewed the below with the patient. She would like to proceed with the ablation procedure. I will update Dr Mooney. Terri Spears RN * Telephone Encounter - Terri Spears RN - 05/02/2023 2:21 PM EDT I called Criselda Storm to review her Bioc[employer] message and her recent Echo results from 04/12/23. The echo showed significant improved in her LVEF (58%) with gnosticism of NSR. I reviewed this with Dr Rodarte who favors an ablation (AF and AFL). I called to review with the patent but there was no answer. Left VM. Terri Spears RN documented in this encounterScci Hospital [facility]02-20-2024 History of Present illness Narrative* Bear Rodarte MD - 04/09/2023 9:45 AM EST Images from the original note were not included. [facility] Department of Cardiovascular Medicine SECTION OF CARDIAC PACING and ELECTROPHYSIOLOGY OUTPATIENT VISIT DATE April 09, 2023 OUTPATIENT VISIT TYPE NEW PRIMARY CARE PHYSICIAN: Rachna Acosta [address] [place] [address] REFERRING PHYSICIAN: No referring provider defined for this encounter. CHIEF COMPLAINT: Fatigue HISTORY OF PRESENT ILLNESS/NURSING INTAKE HISTORY: Ms. Storm is a 77 year old female who presents today for atrial fibrillation/flutter. She has a past medical history of breast cancer s/p lumpectomy and radiation in 2008 and s/p left partial mastectomy, sentinel lymph node biopsy on 02/21/2015 for a clinical stage IA [T1c(1.5cm)N0M0] triple negative invasive ductal carcinoma grade 3 with LVI s/p chemo and newly discovered nonischemiccardiomyopathy with an LVEF of 20% in 2022 and persistent AF/AFL first diagnosed in October. She is s/p DCC 11/2022 and 02/21/23. She is currently in sinus rhythm maintained on Amiodarone. She presented to her local physician in October with ongoing shortness of breath. She was initially treated for URI. In follow up with her PCP she was found to be in HF and was in Atrial flutter RVR. She was placed on Metoprolol and referred to Cardiology. CTA of the chest in October demonstrated moderate to large and moderate right pleural effusions. Echo showed severe global left ventricular dysfunction with an LVEF of 20%. She was treated with Digoxin and started on Eliquis with DCC 11/27/22. She developed early recurrence of her Afib within one week and was subsequently placed on Amiodarone. She underwent a left heart cath which showed non- obstructive disease. She underwent repeat DCC 02/21/23 while on amiodarone therapy. She was noted to be back in AFib at her OPD visit 5 days later. She was advised to see EP to discuss further options. In the meantime she subsequently self converted to NSR. She does note improvement in her symptoms but continues to experience fatigue and BRAMBILA. Denies any dizziness, presyncope nor syncope. She remains on Amiodarone, metoprolol and Eliquis. She is scheduled for repeat Echo locally in May to reassess he LVEF. An ICD was briefly discussed. 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 Primary cardiomyopathy (HCC) PAST SURGICAL HISTORY Procedure Laterality Date BREAST LUMPECTOMY HX CATARACT EXTRACTION HX Right 2014 INTRAOP SENTINEL LYMPH NODE ID W/DYE INJECTION PAST SURGICAL HISTORY OF Left 2010 conor in left leg from fracture TONSILLECTOMY HX SOCIAL HISTORY Social History Tobacco Use Smoking status: Former Years: 40 Types: Cigarettes Start date: 1976 Quit date: 2016 Years since quittin.1 Smokeless tobacco: Never Tobacco comments: 3 cigarettes/day Substance Use Topics Alcohol use: Yes Alcohol/week: 0.0 standard drinks of alcohol Comment: social Drug use: No FAMILY HISTORY Problem Relation Age of Onset Cancer Mother Stomach, age 40's Heart Father [place] No Known Problems Sister Heart Brother [place] other (no other known family hx of breast cancer) Other ALLERGIES: ALLERGIES No Known Allergies MEDICATIONS: amiodarone (PACERONE) 200 mg tablet Take 200 mg by mouth two times a day. FARXIGA 10 mg tablet Take 10 mg by mouth daily with breakfast. ENTRESTO 24-26 mg tablet Take 1 tablet by mouth once daily. apixaban (ELIQUIS) 5 mg tab(s) Take 5 mg by mouth two times a day. furosemide (LASIX) 40 mg tablet Take 40 mg by mouth two times a day. metoprolol tartrate, short acting, (LOPRESSOR) 50 mg tablet Take 50 mg by mouth two times a day. REVIEW OF SYSTEMS: GENERAL: Positive for:Sleep difficulties HEENT: Positive for:Hearing Impairment, Ringing in Ears, and Dentures NECK: Negative for: Swelling, Pain, Stiffness RESPIRATORY: Positive for: Shortness of breath and Wheezing GASTROINTESTINAL: Negative for: Trouble swallowing, Heartburn, Change in bowel habits, Blood in stool, Dark black stools MUSCULOSKELETAL: Negtive for: Muscle or joint pain, stiffness, Joint swelling NEUROLOGIC/PSYCHIATRIC: Positive for: Nervousness or anxiety SKIN: Negative for: Rash, Itching HEMATOLOGICAL/LYMPHATIC: Positive for: Easy bruising ENDOCRINE: Positive for: Heat or cold intolerance and Frequent urination Terri Spears RN PHYSICAL EXAMINATION: BP 100/62 Pulse (!) 50 Ht 163.8 cm (5' 4.5) Wt 61.2 kg (135 lb) BMI 22.81 kg/m Physical Exam Constitutional: General: She is not in acute distress. Appearance: She is well-developed. She is not diaphoretic. HENT: Head: Normocephalic and atraumatic. Mouth/Throat: Pharynx: No oropharyngeal exudate. Eyes: General: No scleral icterus. Left eye: No discharge. Conjunctiva/sclera: Conjunctivae normal. Pupils: Pupils are equal, round, and reactive to light. Neck: Thyroid: No thyromegaly. Vascular: No JVD. Cardiovascular: Rate and Rhythm: Regular rhythm. Bradycardia present. Pulses: Intact distal pulses. Heart sounds: Normal heart sounds. No murmur heard. No friction rub. No gallop. Pulmonary: Effort: Pulmonary effort is normal. No respiratory distress. Breath sounds: Normal breath sounds. No wheezing or rales. Chest: Chest wall: No tenderness. Abdominal: General: Bowel sounds are normal. There is no distension. Palpations: Abdomen is soft. Tenderness: There is no abdominal tenderness. There is no rebound. Musculoskeletal: General: No tenderness. Normal range of motion. Cervical back: Normal range of motion and neck supple. Skin: General: Skin is warm and dry. Findings: No erythema. Neurological: Mental Status: She is alert and oriented to person, place, and time. Cranial Nerves: No cranial nerve deficit. Coordination: Coordination normal. Psychiatric: Thought Content: Thought content normal. CARDIOVASCULAR MEDICINE TESTING: EKG today: Cardiac Cath: 12/2022 EK12/2022 EK10/2022 IMPRESSION: Ms. Storm is a 77 year old female with a history of persistent atrial fibrillation and atrial flutter with rapid ventricular rates complicated by congestive heart failure last fall. Patient now presents for second opinion regarding management. As outlined above rhythm pharmacologically converted to sinus on amiodarone after failed direct-current cardioversions. Patient reports feeling better since going back into sinus, however she is still tired and not back to her baseline. Initial presentation included congestive heart failure with pleural effusions and severe LV dysfunction. Follow-up echo is scheduled in May. Rhythm control recommendation for now is to continue amiodarone with goal to proceed to ablation inthe future. Would first like to confirm gnosticism of LV function with echo. Otherwise plan to optimize heart failure medications including changing beta-nba to long-acting and scheduling Entresto twice daily. If LVEF remains low then we will plan to refer to heart failure for additional optimization of medications and management of nonischemic cardiomyopathy. If EF has normalized then we will plan to discuss ablation treatment. Continue apixaban and amiodarone for now. PLAN AND RECOMMENDATIONS: NICM: GDMT med adjustment> reassess EF and plan for clin/HF cardiology consult if persistent LV dysfunction. Suspect tachyarrhythmia mediated CM. Persistent AF and AFL: continue amiodarone for now> if EF normal then plan PF ablation for AF and Aflutter OAC with apixaban Orders Placed This Encounter DISCONTD: albuterol HFA (PROVENTIL HFA, VENTOLIN HFA) 90 mcg/actuation inhaler amiodarone (PACERONE) 200 mg tablet Sig: Take 200 mg by mouth two times a day. FARXIGA 10 mg tablet Sig: Take 10 mg by mouth daily with breakfast. DISCONTD: naproxen (NAPROSYN) 500 mg tablet Sig: TAKE 1 TABLET BY MOUTH TWICE DAILY FOR 2 WEEKS ENTRESTO 24-26 mg tablet Sig: Take 1 tablet by mouth once daily. apixaban (ELIQUIS) 5 mg tab(s) Sig: Take 5 mg by mouth two times a day. furosemide (LASIX) 40 mg tablet Sig: Take 40 mg by mouth two times a day. metoprolol tartrate, short acting, (LOPRESSOR) 50 mg tablet Sig: Take 50 mg by mouth two times a day. ECHO Standing Status: Future Standing Expiration Date: 04/09/2024 Order Specific Question: Disease / Condition: Answer: Arrhythmia Order Specific Question: Indication: Answer: Sustained atrial fibrillation I personally interviewed, confirmed and edited the above information as obtained by others. CONTACT INFORMATION: Bear Rodarte MD documented in this encounterScci Hospital [facility]01-04-2024 Procedure [facility]01-04-2024 Procedure [facility]01-02-2024 History and physical note Author Marcelo [facility] February 19, 2023 6:48am Note Date/Time February 14, 2023 1:41pm [facility] Medical Records Department [address] [place] [id number] History & Physical Exam 02/14/23 1337 MR#: [id number] Acct: [id number] Name: CRISELDA STORM Rep #:[id number] : 1945 77 From: Marcelo Berry MD PCP: Dr. Rachna Acosta, DO Status:PRE [facility] [place] Location: [facility] History and Physical Date of Admission: 02/21/23 Criselda Storm is a 77-year-old lady with no previous cardiac history who was noted a few weeks ago to have presented with shortness of breath. It was initially thought that she had a respiratory tract infection and then was subsequently treated. A follow-up visit with her PCP noted that she was in heart failure and was in atrial flutter with a rapid ventricular response rate. She was started on metoprolol which was increased and then referred to cardiology for further evaluation and management. Blood work was done includinga C-reactive protein which was elevated, and mildly elevated sed rate and a natruretic peptide which was over 600. EKG done demonstrated atrial flutter with a rate of 150 bpm. She also did have a CTA of her chest performed on October 25 which demonstrated moderate to large left and moderate right pleuraleffusion but no evidence of pulmonary embolism. Echocardiogram demonstrated normal LV size with severe global left ventricular systolic dysfunction with an estimated ejection fraction 20%. Pulmonary artery pressure 30 mmHg. Mild concentric LVH. Earlier this month prior to her cardioversion she was started on digoxin for uncontrolled atrial flutter. Patient did undergo a cardioversion on November 27, 2022. 1 week follow-up EKG demonstrated atrial fibrillation. Because she did not maintain sinus rhythm patient was started on amiodarone, Digoxin was discontinued with the plans of pursuing a diagnostic heart catheterization for further evaluation. She had a heart catheterization 01/15/2023 that showed nonobstructive coronary artery disease and dilated cardiomyopathy. Guideline directed medical therapy was recommended along with rate control and cardioversion. She presents today for cardioversion. Pt notes that she does feel less SOB. She is able to do activities without problems. Dtr sts that her HR is still in the 100s. She has lost weight. She does not have any chest pain/heaviness/tightness. She does not have any orthopnea. She does not have any edema. 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 Is patient in pain?: No Allergies No Known Allergies Allergy (Unverified 12/20/22 11:35) Medications See EMR [facility] Medical History Atrial flutter Bilateral pleural effusion History of bilateral breast cancer Non-ischemic cardiomyopathy Surgical History History of open reduction and internal fixation (ORIF) procedure Family History Father Myocardial infarctionBrother Myocardial infarction Social History Smoking Status: Former smoker how long ago did patient quit smokin years alcohol intake: current alcohol intake frequency: 0-2 drinks per day Alcohol type: wine substance use type: does not use caffeine: No ROS Const Const: Positive for fatigue (improving); Negative for weakness ENT ENT: Negative for dizziness or balance problems Cardio Chest Pain: No Palpitations: No Edema: None Muscle aches with walking: None Resp Respiratory: Positive for SOB with activity (improving) and SOB orthopnea\SOB lying down; Negative for SOB at rest GI GI: Negative nausea, vomiting or heartburn Musc Musc: Negative for muscle weakness or balance problems Neuro Neuro: Negative for dizziness, lightheadedness, near syncope, syncope or weakness Endo Endo: Positive for fatigue (improving) Cardiology Exam Const Appearance: cooperative and no acute distress Orientation: alert, awake and oriented x3 Head Head: normal to inspection Ears: hearing grossly normal bilaterally Nose: external nose normal Face and Sinus: face symmetric Mouth: oral mucosae normal, lip normal and moist mucous membranes Eyes General: appearance normal, both eyes and all related structures Eyelids: eyelids normal Conjunctivae: conjunctivae normal Pupils: PERRL EOM: EOM intact bilaterally Neck Neck: normal visual inspection and trachea midline; Negative no JVD Carotids: Negative bruit Chest Chest inspection: normal inspection of the chest Auscultation: Bilateral: Diminished Lung Sounds Cardio Palpation: normal PMI Rate: tachycardic Rhythm: irregularly irregular Heart sounds: S1 normal and S2 normal; Negative rub, gallop or murmur GI GI: soft, no hepatosplenomegaly and bowel sounds present Neuro General: patient alert, patient awake, patient oriented x3 and CN's II-XI intactbilaterally Extremities Pulses: Normal: Right Posterior Tibial Pulse, Left Posterior Tibial Pulse, RightRadial Pulse and Left Radial Pulse Lower Extremity Edema: None: Bilateral Psych Psychological: normal affect Supplemental Info Supplemental Information Chest CTA 10/25/2022 IMPRESSION: 1. No evidence of pulmonary embolism. 2. Atelectatic changes in the left lung. 3. Bilateral pleural effusions larger on the left side. 4. Asymmetric right breast density for which correlation with nonemergent mammography is recommended. Echocardiogram 10/2022: Normal LV size. Severe global left ventricular systolic dysfunction. The estimated ejection fraction is 20 %. There is severe global hypokinesis of the left ventricle. Pulmonary artery systolic pressure is 30 mmHg. Mild concentric left ventricular hypertrophy. Heart catheterization from 01/15/2023: CONCLUSIONS Non obstructive coronary arteries Cardiomyopathy: Dilated RECOMMENDATIONS Guideline directed medical therapy, rate control, and interval cardioversion. CORONARY ANGIOGRAPHY DOMINANCE: Right Dominant LEFT HEART ASSESSMENT Left Ventricular Ejection Fraction: by LV Gram 20 % Global Hypokinesis - Severe Depressed Left Ventricular systolic function LEFT MAIN: Angiographically normal LEFT ANTERIOR DESCENDING ARTERY: Moderate disease noted in the ostium of the LAD of 30 to 40% and mid segment with mild calcification and up to 50% stenosis with mild diffuse disease. CIRCUMFLEX ARTERY: Mild luminal irregularities less than 30% RAMUS: Mild luminal irregularities less than 30% RIGHT CORONARY ARTERY: No significant disease noted Assessment and Plan Assessment and Plan (1) Atrial flutter: Status: Acute Plan: Unfortunately she did not maintain SR after her DCCV. She has been continued onamiodarone, Eliquis, and metoprolol. She underwent a heart catheter 01/15/2023 that showed nonobstructive coronary arteries. She was restarted Eliquis therapyand we will proceed with cardioversion. (2) Non-ischemic cardiomyopathy: Status: Acute Plan: Pt currently does not have symptoms of CHF. Her most recent heart catheterization shows nonobstructive coronary artery disease. Her most recent echocardiogram in October 2022 shows an ejection fraction 20%. We will continue to adjust medications according to guideline directed medical therapy. 02/19/23 0648 <Electronically signed by Marcelo Berry MD> Cosigner Signature (if applicable): 02/14/23 1342 <Electronically signed by Cinthia H Roof MEDICAL MANAGER MEDICAL MANAGER-C> CC: MEDICAL MANAGER-C Cinthia Kim; Dr. Marcelo Berry MD; Dr. Rachna Acosta DO~ Signed [facility] Work Phone: [phone]) 103-101105-02-2023 History of Present illness Narrative* Abhishek Andrews MD - 06/19/2022 2:08 PM EDT [facility] [address] [facility] [place] [address] [facility] [address] Dept: [phone] Abhishek Andrews MD Criselda Storm 77 y.o. female Patient presents with a chief complaint of [place] pt just had [facility] at [facility] ([facility] Pt/ prev pt at [place]/Hearing test showed right ear was not good [...] that she was anxious in the testing [place]. She has had trouble hearing a speaker [...] dB loss in the right prom a previousaudiogram in 2020. More significantly, the speech discrimination has dropped significantly in the right to 40%, from 92% previously. We have discussed MRI to evaluation the auditory nerve, but she isreluctant to pursue this. As she had a [...] signature was used to authenticate this note. * Daisha Bonilla MA - 06/19/2022 2:00 PM EDT error * Dianne Christina MA - 06/19/2022 1:52 PM EDT Review of Systems Constitutional: Negative. HENT: Positive for postnasal drip (depends on the weather). Eyes: Negative. Respiratory: Negative. Cardiovascular: Negative. Gastrointestinal: Negative. Endocrine: Positive for cold intolerance. Genitourinary: Negative. Musculoskeletal: Negative. Skin: Negative. Allergic/Immunologic: Negative. Neurological: Negative. Hematological: Negative. Psychiatric/Behavioral: Negative. documented in this [id number] Miscellaneous Notes* Letter - Mammography Coordinator - 09/29/2021 1:48 PM EDT September 29, 2021 PID: [id number] Criselda Storm [address] [place] [address] Dear Ms. Storm, We are pleased to [...] dense breast tissue in addition to other riskfactors. Early detection of cancer is very important. We also understand recommendations regarding breast cancer screening are controversial. Please discuss with your primary care provider which strategy is best for you and whether a mammogram is right for you. Your imaging studies and report will be kept on file at [facility] as part of your permanent medical record and are available for your continuing care. Thank you for allowing us to help in meeting your health care needs. Sincerely, Dr. To Interpreting Radiologist [facility] (Normal over 40) documented [facility]-20[facility] History of Present illness Narrative* RT Miguel(R) - 09/29/2021 10:50 AM EDT Radiology Service Progress Note PATIENT NAME: Criselda Storm DATE OF SERVICE: September 29, 2021 TIME: 10:50 AM PATIENT IDENTITY VERIFICATION COMPLETED USING TWO (2) IDENTIFIERS: Name and Date of confirmedby patient verbally. FALL SCREENING: Has the patient [...] 29, 2021 10:50 AM documented in this encounterS[facility]imaEvaluation noteNo assessment information availableWCleveland Clinic Work Phone: Evaluation note* Diagnosis Sensorineural hearing loss, bilateral- Primary Impacted cerumen of right ear Impacted cerumen Impaired auditory discrimination, right [facility] Diagnosis Onset Date Resolution Status Atrial flutter acute CHF (congestive heart failure), NYHA class III acute [facility] Work Phone: Evaluation note* Diagnosis Onset Date Resolution Status Atrial flutter acute CHF (congestive heart failure), NYHA class III acute Atrial flutter acute Non-ischemic cardiomyopathy acute Atrial flutter acute Non-ischemic cardiomyopathy [facility] Work Phone: Evaluation note* Diagnosis Onset Date Resolution Status Atrial flutter acute Non-ischemic cardiomyopathy acute Atrial flutter acute Non-ischemic cardiomyopathy acute Atrial flutter acute Non-ischemic cardiomyopathy [facility] Work Phone: Evaluation note* Diagnosis Atrial fibrillation, persistent (HCC)- Primary Atrial fibrillation Dilated cardiomyopathy (HCC) Other primary cardiomyopathies documented in this encounter [facility] note* Diagnosis Atrial fibrillation, persistent (HCC)- Primary Atrial fibrillation documented in this encounter [facility] note* Diagnosis Persistent atrial fibrillation (HCC)- Primary Atrial fibrillation Nonischemic cardiomyopathy (HCC) Other primary cardiomyopathies On amiodarone therapy Paroxysmal atrial fibrillation (HCC) Atrial fibrillation documented in this encounter [facility] note* Diagnosis Atrial fibrillation, persistent (HCC) Atrial fibrillation Paroxysmal atrial fibrillation (HCC) Atrial fibrillation documented in this encounter [facility] note* Diagnosis AF (paroxysmal atrial fibrillation) (HCC)- Primary Atrial fibrillation documented in this encounter [facility] note* Diagnosis Typical atrial flutter (HCC)- Primary Atrial flutter Persistent atrial fibrillation (HCC) Atrial fibrillation On apixaban therapy Mixed hyperlipidemia documented in this encounter [facility] note* Diagnosis Atrial fibrillation, persistent (HCC)- Primary Atrial fibrillation documented in this encounter [facility] note* Diagnosis Pleural effusion on left- Primary Unspecified pleural effusion Chronic combined systolic (congestive) and diastolic (congestive) heart failure (HCC) Atrial fibrillation, unspecified type (HCC) documented in this encounter [facility] note* Diagnosis Recurrent pleural effusion documented in this encounter [facility] note* Diagnosis Recurrent pleural effusion- Primary Pleural effusion on left Unspecified pleural effusion documented in this encounter [facility] Discharge instructionsAmbulatory Orders* Electrophysiology Location: [facility] Work Phone: Reason for referral (narrative)* Outpatient Procedure (Routine) - Authorized Specialty Diagnoses / Procedures Referred By Contac t Referred To [facility] Diagnoses Atrial fibrillation, persistent (HCC) Procedures ECG COMPLETE ECG ROUTINE ECG W/LEAST 12 LDS W/I&R Bear Rodarte MD [address] [place] [address] [facility] [address] [place] [id number] Referral ID Status Reason Start Date Expiration Date Visits Requested Visits Authorized [id number] Authorized Auto-Generat ed Referral 04/11/2023 04/10/2024 1 1 [facility]No reason for referral information availableWCleveland Clinic Work Phone: Reason for visit Narrative* Imaging (Routine) - Closed Specialty Diagnoses / Procedures Referred By Patricia t Referred To Contact Radiology Diagnoses Recurrent pleural effusion Procedures CT chest w IV contrast Emeterio Malcolm DO [address] [place] [address] Phone: tel: fax: Referral ID Status Reason Start Date Expiration Date Visits Re quested Visits Authorized [id number] Closed 07/16/2024 07/16/2025 1 1 [facility] Health Summary Purpose Family History No Family History Records Found Relationship Condition Age at Onset Recorded Date/T elif father Myocardial infarction Unknown brother Myocardial infarction Unknown Advance Directives No Advanced Directives Records Found Advance Directive Response Recorded Date/ Time Advance Directives on File No Octob er 2022 6:48am Name of Medical Power of Supervisor [employer] coco carlos November 27, 2022 6:48am Advance Directives Yes November 27, 2022 6:48am Living Will Yes November 27 6:48am Power of Supervisor [employer] Yes November 27, 2022 6:48am Advance Directive Response Recorded Date/ Time Advance Directives on File No Novem 2022 7:29am Name of Medical Power of Supervisor [employer] Stock Coco Massey- daughter January 15, 2023 7:29am Advance Directives Yes December 7:29am Living Will Yes January 15, 2 023 7:29am Power of Supervisor Assembly [employer] Yes January 15, 2023 7:29am Advance Directives on File No Octob er 2022 6:48am Name of Medical Power of Supervisor Assembly Stock coco carlos November 27, 2022 6:48am Advance Directive Response Recorded Date/ Time Advance Directives on File No Novem 2022 7:29am Name of Medical Power of Supervisor Assembly Stock Coco Massey- daughter January 15, 2023 7:29am Advance Directives on File No Janua ry 2023 11:21am Name of Medical Power of Supervisor Assembly Stock Coco Massey- daughter February 21, 2023 11:21am Advance Directives Yes February 21, 2023 11:21am Living Will Yes February 21 11:21am Power of Supervisor Assembly Stock Yes February 21, 2 024 11:21am Advance Directives on File No Octob 2022 6:48am Name of Medical Power of Supervisor Assembly Stock coco carlos November 27, 2022 6:48am Advance Directive Response Recorded Date/ Time Living Will Yes February 21 12:21pm Do you have a Healthcare Power of Supervisor Assembly Stock? Yes February 21, 2023 12:21pm Living Will Yes May 31, 2024 4:20pm Do you have a Healthcare Power of Supervisor Assembly Stock? Yes May 31, 2024 4:20pm Name of Medical Power of Supervisor Assembly [employer] Coco May 31, 2024 4:20pm Advance Directives Yes February 21, 2023 12:21pm Advance Directive Response Recorded Date/ Time Living Will Yes May 31, 2024 4:20pm Do you have a Healthcare Power of Supervisor Assembly Stock? Yes May 31, 2024 4:20pm Name of Medical Power of Supervisor Assembly Stock Coco May 31, 2024 4:20pm Advance Directives Yes February 21, 2023 12:21pm Advance Directive Response Recorded Date/ Time Advance Directives Yes February 21, 2023 12:21pm Advance Directive Response Recorded Date/ Time Living Will Yes February 21 12:21pm Do you have a Healthcare Power of Supervisor [employer] Stock? Yes February 21, 2023 12:21pm Advance Directives Yes February 21, 2023 12:21pm Chief Complaint and Reason for Visit Chief Complaint LEFT ANKLE PAIN Chief Complaint LEFT ANKLE PAIN COUGH, SOB, WHEEZING Chief Complaint LEFT ANKLE PAIN COUGH, SOB, WHEEZING SOB CHEST XRAY Chief Complaint LEFT ANKLE PAIN COUGH, SOB, WHEEZING SOB CHEST XRAY est Reason for Visit Atrial flutter CHF (congestive heart failure), NYHA class III Chief Complaint COUGH, SOB, WHEEZING SOB CHEST XRAY est BILAT PLEURAL EFFUSIONS, SOB, EDEMA, HX CHEMO 3 W FU AFIB/FLUTTER AFIB/FLUTTER AFIB/FLUTTER S/P DCCV EKG 1 wk 1 M FU INT LABS Reason for Visit Atrial flutter CHF (congestive heart failure), NYHA class III Atrial flutter Non-ischemic cardiomyopathy Atrial flutter Non-ischemic cardiomyopathy Chief Complaint COUGH, SOB, WHEEZING SOB CHEST XRAY est BILAT PLEURAL EFFUSIONS, SOB, EDEMA, HX CHEMO 3 W FU AFIB/FLUTTER AFIB/FLUTTER AFIB/FLUTTER S/P DCCV EKG 1 wk 1 M FU INT LABS LEG PAIN NON-ISCHEMIC CARDIOMYOPAHTY Reason for Visit Atrial flutter CHF (congestive heart failure), NYHA class III Atrial flutter Non-ischemic cardiomyopathy Atrial flutter Non-ischemic cardiomyopathy Chief Complaint SOB CHEST XRAY est BILAT PLEURAL EFFUSIONS, SOB, EDEMA, HX CHEMO 3 W FU AFIB/FLUTTER AFIB/FLUTTER AFIB/FLUTTER S/P DCCV EKG 1 wk 1 M FU INT LABS LEG PAIN NON-ISCHEMIC CARDIOMYOPAHTY A-FIB/FLUTTER A-FIB/FLUTTER A-FIB/FLUTTER A-FIB/FLUTTER Reason for Visit Atrial flutter CHF (congestive heart failure), NYHA class III Atrial flutter Non-ischemic cardiomyopathy Atrial flutter Non-ischemic cardiomyopathy Chief Complaint BILAT PLEURAL EFFUSI ONS, SOB, EDEMA, HX CHEMO 3 W FU AFIB/FLUTTER AFIB/FLUTTER AFIB/FLUTTER S/P DCCV EKG 1 wk 1 M FU INT LABS LEG PAIN NON-ISCHEMIC CARDIOMYOPAHTY A-FIB/FLUTTER A-FIB/FLUTTER A-FIB/FLUTTER A-FIB/FLUTTER Added per MMM:needs ekg but also CHF Reason for Visit Atrial flutter Non-ischemic cardiomyopathy Atrial flutter Non-ischemic cardiomyopathy Atrial flutter Non-ischemic cardiomyopathy Chief Complaint Admit Date 6 M FU March 06, 2024 8 :28am LIVER LESION March 09, 2024 7 :51am LIVER NODULE ON CT March 17, 2024 9 :47am CHF March 19, 2024 1 2:49pm Follow up to [place] request March 1:43pm back pain, sob, chest pain May 31, 2 025 4:14pm Reason for Visit Admit Date Atrial flutter March 06, 2024 8 :28am Non-ischemic cardiomyopathy February 8:28am Gastric wall thickening March 26 1:43pm Chief Complaint Admit Date 6 M FU March 06, 2024 8 :28am LIVER LESION March 09, 2024 7 :51am LIVER NODULE ON CT March 17, 2024 9 :47am CHF March 19, 2024 1 2:49pm Follow up to [place]elia request March 1:43pm back pain, sob, chest pain May 31, 025 4:14pm PLEURAL EFFUSION June 03, 2024 8:0 6am PLEURAL EFFUSION June 03, 2024 9:0 4am LABS AND XRAY- DYSPNEA June 24, 2024 2:2 6pm Reason for Visit Admit Date Atrial flutter March 06, 2024 8 :28am Non-ischemic cardiomyopathy February 8:28am Gastric wall thickening March 26 1:43pm Shortness of breath June 03, 2024 8:0 6am Pleural effusion June 03, 2024 8:0 6am Chief Complaint Admit Date back pain, sob, chest pain May 31, 025 4:14pm PLEURAL EFFUSION June 03, 2024 8:0 6am PLEURAL EFFUSION June 03, 2024 9:0 4am LABS AND XRAY- DYSPNEA June 24, 2024 2:2 6pm RECURRENT PLEURAL EFFUSION August 14 7:43am See clinical note: thoracentesis August 9:23am Reason for Visit Admit Date Shortness of breath June 03, 2024 8:0 6am Pleural effusion June 03, 2024 8:0 6am Atrial flutter August 18, 2024 9:23a m Non-ischemic cardiomyopathy August 18 9:23am Chief Complaint Admit Date back pain, sob, chest pain May 31 025 4:14pm PLEURAL EFFUSION June 03, 2024 8:0 6am PLEURAL EFFUSION June 03, 2024 9:0 4am LABS AND XRAY- DYSPNEA June 24, 2024 2:2 6pm RECURRENT PLEURAL EFFUSION August 14 7:43am See clinical note: thoracentesis August 9:23am E ORDER August 18, 2024 10:43 am Chief Complaint Admit Date LABS AND XRAY- DYSPNEA June 24, 2024 2:2 6pm RECURRENT PLEURAL EFFUSION August 14 7:43am See clinical note: thoracentesis August 9:23am E ORDER August 18, 2024 10:43 am E ORDERS October 01, 2024 12 :37pm Reason for Visit Admit Date Atrial flutter August 18, 2024 9:23a m Non-ischemic cardiomyopathy August 18 9:23am Chief Complaint Admit Date RECURRENT PLEURAL EFFUSION August 14 7:43am See clinical note: thoracentesis August 9:23am E ORDER August 18, 2024 10:43 am E ORDERS October 01, 2024 12 :37pm 1 Y FU/MOVED FROM [facility] November 03 8:59am Reason for Visit Admit Date Atrial flutter August 18, 2024 9:23a m Non-ischemic cardiomyopathy August 18 9:23am Bilateral pleural effusion October 8:59am CHF (congestive heart failure), NYHA cla ss III November 03, 2024 8:59am Non-ischemic cardiomyopathy November 032024 8:59am Shortness of breath November 03, 2024 8:59am Chief Complaint Admit Date RECURRENT PLEURAL EFFUSION August 14 7:43am See clinical note: thoracentesis August 9:23am E ORDER August 18, 2024 10:43 am E ORDERS October 01, 2024 12 :37pm 1 Y FU/MOVED FROM [facility] November 03 8:59am INT XRAY ORDER November 03, 2024 10:22am Reason for Visit Admit Date Atrial flutter August 18, 2024 9:23a m Non-ischemic cardiomyopathy August 18 9:23am Atrial flutter November 03, 2024 8:59am Bilateral pleural effusion October 8:59am Non-ischemic cardiomyopathy November 032024 8:59am Reason for Referral Specialty Diagnoses / Procedures Referred By Patricia dunn Referred To Contact Procedures CARDIOVASCULAR MEDICINE OP FOLLOW UP APPT ORDER Bear Rodarte MD [address] [place] [address] Referral ID Status Reason Start Date Expiration Date Visits Requested Visits Authorized [id number] Ref Not Required PCP Requested Referral 07/08/2023 04/08/2024 1 1 Specialty Diagnoses / Procedures Referred By Patricia dunn Referred To Contact [facility] Diagnoses Atrial fibrillation, persistent (HCC) Procedures ECHO ECHO TTHRC R-T 2D W/WOM-MODE COMPL SPEC&COLR D Bear Rodarte MD [address] [place] [address] [facility] [address] [address] Referral ID Status Reason Start Date Expiration Date Visits Requested Visits Authorized [id number] Authorized Auto-Generat ed Referral 04/09/2023 04/08/2024 1 1 Specialty Diagnoses / Procedures Referred By Contac t Referred To Contact [facility] [place] Procedures CARDIOVASCULAR MEDICINE OP FOLLOW UP APPT ORDER Tisha Araujo AGENTS' RECORDS CLERK.VICE PRESIDENT LENDING [address] [place] [address] [address] Referral ID Status Reason Start Date Expiration Date Visits Requested Visits Authorized [id number] Ref Not Required PCP Requested Referral 06/26/2023 06/25/2024 1 1 Specialty Diagnoses / Procedures Referred By Contac t Referred To Contact CT IMAGING Diagnoses Atrial fibrillation, persistent (HCC) Procedures CT PULMONARY VEIN W IVCON CT HEART CONTRAST EVAL CARDIAC STRUCTURE&MORPH Bear Rodarte MD [address] [place] [address] Ct Imaging [id number] Referral ID Status Reason Start Date Expiration Date V isits Requested Visits Authorized [id number] Closed Auto-Generate d Referral 05/24/2023 06/22/2024 1 1 Specialty Diagnoses / Procedures Referred By Contac t Referred To Contact [facility] [place] Diagnoses Typical atrial flutter (HCC) Persistent atrial fibrillation (HCC) On apixaban therapy Procedures CARDIOVASCULAR MEDICINE OP FOLLOW UP APPT ORDER Luis F Bravo, AGENTS' RECORDS CLERK.VICE PRESIDENT LENDING [address] [place] [address] [facility] [address] [address] Referral ID Status Reason Start Date Expiration Date Visits Requested Visits Authorized [id number] Ref Not Required PCP Requested Referral 10/03/2023 10/02/2024 1 1 Referral ID Status Reason Start Date Expiration Date Visits Requested Visits Authorized [id number] Pending Review Auto-Generat ed Referral 05/24/2023 06/22/2024 1 1 Specialty Diagnoses / Procedures Referred By Patricia t Referred To Contact [facility] Diagnoses Atrial fibrillation, persistent (HCC) Procedures ECG COMPLETE ECG ROUTINE ECG W/LEAST 12 LDS W/I&R Bear Rodarte MD [address] [place] [address] [facility] [place] [address] [place] [address] Referral ID Status Reason Start Date Expiration Date Visits Requested Visits Authorized [id number] Pending Review Auto-Generat ed Referral 05/24/2023 05/23/2024 1 1 Additional Source Comments INFORMATION SOURCE (unrecogn ized section and content) DATE CREATED AUTHOR 02/10/2018 [facility] DATE CREATED AUTHOR AUTHOR'S ORGANIZ ATION 09/07/2019 [facility] DATE CREATED AUTHOR AUTHOR'S ORGANIZ ATION 06/25/2022 [facility] DATE CREATED AUTHOR AUTHOR'S ORGANIZ ATION 05/03/2024 [facility] DATE CREATED AUTHOR AUTHOR'S ORGANIZ ATION 08/08/2024 [facility] DATE CREATED AUTHOR AUTHOR'S ORGANIZ ATION 12/30/2024 [facility] Source Comments (unrecognize d section and content) In the event this informatio n is protected by the Federal Confidentiality of Alcohol and Drug Abuse Patient Records regulations: The Federal rules restrict any use of the information to criminally investigate or prosecute any alcohol or drug abuse patient.[facility] the event this information is protected by the Federal Confidentiality of Alcohol and Drug Abuse Patient Records regulations: The Federal rules restrict any use of the information to criminally investigate or prosecute any alcohol or drug abuse patient.[facility] the event this information is protected by the Federal Confidentiality of Alcohol and Drug Abuse Patient Records regulations: The Federal rules restrict any use of the information to criminally investigate or prosecute any alcohol or drug abuse patient.[facility] the event this information is protected by the Federal Confidentiality of Alcohol and Drug Abuse Patient Records regulations: The Federal rules restrict any use of the information to criminally investigate or prosecute any alcohol or drug abuse patient.[facility] the event this information is protected by the Federal Confidentiality of Alcohol and Drug Abuse Patient Records regulations: The Federal rules restrict any use of the information to criminally investigate or prosecute any alcohol or drug abuse patient.[facility] the event this information is protected by the Federal Confidentiality of Alcohol and Drug Abuse Patient Records regulations: The Federal rules restrict any use of the information to criminally investigate or prosecute any alcohol or drug abuse patient.[facility] the event this information is protected by the Federal Confidentiality of Alcohol and Drug Abuse Patient Records regulations: The Federal rules restrict any use of the information to criminally investigate or prosecute any alcohol or drug abuse patient.[facility] the event this information is protected by the Federal Confidentiality of Alcohol and Drug Abuse Patient Records regulations: The Federal rules restrict any use of the information to criminally investigate or prosecute any alcohol or drug abuse patient.[facility] the event this information is protected by the Federal Confidentiality of Alcohol and Drug Abuse Patient Records regulations: The Federal rules restrict any use of the information to criminally investigate or prosecute any alcohol or drug abuse patient.[facility] the event this information is protected by the Federal Confidentiality of Alcohol and Drug Abuse Patient Records regulations: The Federal rules restrict any use of the information to criminally investigate or prosecute any alcohol or drug abuse patient.[facility] the event this information is protected by the Federal Confidentiality of Alcohol and Drug Abuse Patient Records regulations: The Federal rules restrict any use of the information to criminally investigate or prosecute any alcohol or drug abuse patient.[facility] the event this information is protected by the Federal Confidentiality of Alcohol and Drug Abuse Patient Records regulations: The Federal rules restrict any use of the information to criminally investigate or prosecute any alcohol or drug abuse patient.[facility] the event this information is protected by the Federal Confidentiality of Alcohol and Drug Abuse Patient Records regulations: The Federal rules restrict any use of the information to criminally investigate or prosecute any alcohol or drug abuse patient.[facility] the event this information is protected by the Federal Confidentiality of Alcohol and Drug Abuse Patient Records regulations: The Federal rules restrict any use of the information to criminally investigate or prosecute any alcohol or drug abuse patient.[facility]ima[facility] the event this information is protected by the Federal Confidentiality of Alcohol and Drug Abuse Patient Records regulations: The Federal rules restrict any use of the information to criminally investigate or prosecute any alcohol or drug abuse patient.[facility]ima[facility] the event this information is protected by the Federal Confidentiality of Alcohol and Drug Abuse Patient Records regulations: The Federal rules restrict any use of the information to criminally investigate or prosecute any alcohol or drug abuse patient.[facility]ima[facility] the event this information is protected by the Federal Confidentiality of Alcohol and Drug Abuse Patient Records regulations: The Federal rules restrict any use of the information to criminally investigate or prosecute any alcohol or drug abuse patient.[facility]ima[facility] the event this information is protected by the Federal Confidentiality of Alcohol and Drug Abuse Patient Records regulations: The Federal rules restrict any use of the information to criminally investigate or prosecute any alcohol or drug abuse patient.[facility]ima[facility] the event this information is protected by the Federal Confidentiality of Alcohol and Drug Abuse Patient Records regulations: The Federal rules restrict any use of the information to criminally investigate or prosecute any alcohol or drug abuse patient.[facility]ima[facility] the event this information is protected by the Federal Confidentiality of Alcohol and Drug Abuse Patient Records regulations: The Federal rules restrict any use of the information to criminally investigate or prosecute any alcohol or drug abuse patient.[facility]ima[facility] the event this information is protected by the Federal Confidentiality of Alcohol and Drug Abuse Patient Records regulations: The Federal rules restrict any use of the information to criminally investigate or prosecute any alcohol or drug abuse patient.[facility]ima[facility] the event this information is protected by the Federal Confidentiality of Alcohol and Drug Abuse Patient Records regulations: The Federal rules restrict any use of the information to criminally investigate or prosecute any alcohol or drug abuse patient.[facility]ima[facility] the event this information is protected by the Federal Confidentiality of Alcohol and Drug Abuse Patient Records regulations: The Federal rules restrict any use of the information to criminally investigate or prosecute any alcohol or drug abuse patient.[facility]ima[facility] the event this information is protected by the Federal Confidentiality of Alcohol and Drug Abuse Patient Records regulations: The Federal rules restrict any use of the information to criminally investigate or prosecute any alcohol or drug abuse patient.[facility]ima[facility] the event this information is protected by the Federal Confidentiality of Alcohol and Drug Abuse Patient Records regulations: The Federal rules restrict any use of the information to criminally investigate or prosecute any alcohol or drug abuse patient.[facility]imaIn the event this information is protected by the Federal Confidentiality of Alcohol and Drug Abuse Patient Records regulations: The Federal rules restrict any use of the information to criminally investigate or prosecute any alcohol or drug abuse patient.[facility]ima[facility] the event this information is protected by the Federal Confidentiality of Alcohol and Drug Abuse Patient Records regulations: The Federal rules restrict any use of the information to criminally investigate or prosecute any alcohol or drug abuse patient.[facility]ima[facility] the event this information is protected by the Federal Confidentiality of Alcohol and Drug Abuse Patient Records regulations: The Federal rules restrict any use of the information to criminally investigate or prosecute any alcohol or drug abuse patient.[facility]imaIn the event this information is protected by the Federal Confidentiality of Alcohol and Drug Abuse Patient Records regulations: The Federal rules restrict any use of the information to criminally investigate or prosecute any alcohol or drug abuse patient.[facility]ima[facility] the event this information is protected by the Federal Confidentiality of Alcohol and Drug Abuse Patient Records regulations: The Federal rules restrict any use of the information to criminally investigate or prosecute any alcohol or drug abuse patient.[facility]imaIn the event this information is protected by the Federal Confidentiality of Alcohol and Drug Abuse Patient Records regulations: The Federal rules restrict any use of the information to criminally investigate or prosecute any alcohol or drug abuse patient.[facility]imaIn the event this information is protected by the Federal Confidentiality of Alcohol and Drug Abuse Patient Records regulations: The Federal rules restrict any use of the information to criminally investigate or prosecute any alcohol or drug abuse patient.[facility]imaIn the event this information is protected by the Federal Confidentiality of Alcohol and Drug Abuse Patient Records regulations: The Federal rules restrict any use of the information to criminally investigate or prosecute any alcohol or drug abuse patient.[facility] Care Teams (unrecognized sec tion and content) Bacteriology Research Assistant Relationship Specialty Start Date End Date Yovana Pierre MD [address] [address] [place], [place] [id number] PCP - General Family Practice 11/15/15 Vanessa Champagne MD Hematology/Oncology 03/01/15 Bacteriology Research Assistant Relationship Specialty Start Date End Date Yovana Pierre MD [address] [facility] [address] [place], [place] [id number] PCP - General Family Practice 11/15/15 Vanessa Champagne MD Hematology/Oncology 03/01/15 Bacteriology Research Assistant Relationship Specialty Start Date End Date Rachna Acosta DO [address] [place] [address] PCP - General Family Medicine 05/29/22 Team Status: Active Member Role Status Dates Dr. Rachna Acosta DO Family Provider Active Dr. Rachna Acosta DO Primary Care Provider Active Team Status: Inactive Member Role Status Dates Dr. Rachna Acosta DO Primary Care Provide r, Attending Provider, Referring Provider Active Team Status: Inactive Member Role Status Dates Dr. Rachna Acosta DO Primary Care Provider Active Diandra Zuniga NP-C Attending Provider, Referring Prov ider Active Team Status: Active Member Role Status Dates Dr. Rachna Acosta DO Primary Care Provider Active LEX Hill Attending Provider, Referring Prov ider Active Team Status: Active Member Role Status Dates Dr. Rachna Malys , DO Primary Care Provide r, Attending Provider, Referring Provider Active Team Status: Inactive Member Role Status Dates Dr. Rachna Acosta DO Primary Care Provider, Referring P rovider Active Dr. Marcelo Berry MD Attending Provider Active Team Status: Inactive Member Role Status Dates Dr. Rachna Acosta DO Primary Care Provider, Referring P rovider Active Hazel Denson PA, PA Attending Provider Active Team Status: Active Member Role Status Dates Dr. Rachna Acosta DO Primary Care Provider Active Dr. Marcelo Berry MD Attending Provider Active Team Status: Active Member Role Status Dates Dr. Rachna Acosta DO Primary Care Provider Active Dr. Marcelo Berry MD Attending Provider, Referring Provider, Other Provider Active Team Status: Active Member Role Status Dates Dr. Rachna Acosta DO Primary Care Provider Active Dr. Marcelo Berry MD Referring Provider, Other Provide r Active Dr. Alejandro Ruiz DO Attending Provider Active Team Status: Inactive Member Role Status Dates Dr. Rachna Acosta DO Primary Care Provide r, Attending Provider, Referring Provider Active Dr. Marcelo Berry MD Other Provider Active Team Status: Inactive Member Role Status Dates Dr. Rachna Acosta DO Primary Care Provider Active Hazel Denson PA, PA Attending Provider, Referr ing Provider Active Team Status: Inactive Member Role Status Dates Dr. Rachna Acosta DO Primary Care Provider Active Dr. Marcelo Berry MD Attending Provider, Referring Pro vider Active Team Status: Inactive Member Role Status Dates Dr. Rachna Acosta DO Primary Care Provider Active Dr. Blessing Wells DO Attending Provider, Emergency P rovider Active Team Status: Active Member Role Status Dates Dr. Rachna Acosta DO Primary Care Provider Active Dr. Marcelo Berry MD Attending Provider, Other Provide r Active Team Status: Active Member Role Status Dates Dr. Rachna Acosta DO Primary Care Provider Active Dr. Marcelo Berry MD Referring Provider, Other Provide r Active Dr. Magalie Fernandez MD Attending Provider Active Bacteriology Research Assistant Relationship Specialty Start Date End Date Rachna Acosta DO [address] [facility] [place] [address] PCP - General Family Medicine 03/18/23 Vanessa Champagne MD Hematology/Oncology 03/01/15 Marcelo Berry MD [address] [place] [address] Referring Cardiology 04/09/23 Bacteriology Research Assistant Relationship Specialty Start Date End Date Rachna Acosta DO [address] [place] [address] PCP - General Family Medicine 03/18/23 Vanessa Champagne MD Hematology/Oncology 03/01/15 Marcelo Berry MD [address] [place] [address] Referring Cardiology 04/09/23 Bacteriology Research Assistant Relationship Specialty Start Date End Date Rachna Acosta DO [address] [place] [address] PCP - General Family Medicine 03/18/23 Vanessa Champagne MD Hematology/Oncology 03/01/15 Marcelo Berry MD [address] [place] [address] Referring Cardiology 04/09/23 Bacteriology Research Assistant Relationship Specialty Start Date End Date Rachna Acosta DO [address] [place] [address] PCP - General Family Medicine 03/18/23 Vanessa Champagne MD Hematology/Oncology 03/01/15 Marcelo Berry MD [address] [place], [place] [address]- Referring Cardiology 04/09/23 Bacteriology Research Assistant Relationship Specialty Start Date End Date Dave Rachna RobersonDO [address] [place] [address] PCP - General Family Medicine 03/18/23 Vanessa Champagne MD Hematology/Oncology 03/01/15 Marcelo Berry MD [address] [place], [place] [phone]- Referring Cardiology 04/09/23 Bacteriology Research Assistant Relationship Specialty Start Date End Date DaveAshleya DO Kar[place] [address] [place] [address] PCP - General Family Medicine 03/18/23 Vanessa Champagne MD Hematology/Oncology 03/01/15 Marcelo Berry MD [address] [place] [address] Referring Cardiology 04/09/23 Bacteriology Research Assistant Relationship Specialty Start Date End Date Rachna Acosta DO [address] [place] [address] PCP - General Family Medicine 03/18/23 Vanessa Champagne MD Hematology/Oncology 03/01/15 Marcelo Berry MD [address] [place] [address] Referring Cardiology 04/09/23 Bacteriology Research Assistant Relationship Specialty Start Date End Date Rachna Acosta DO [address] [place] [address] PCP - General Family Medicine 03/18/23 Vanessa Champagne MD Hematology/Oncology 03/01/15 Marcelo Berry MD [address] [place] [address] Referring Cardiology 04/09/23 Bacteriology Research Assistant Relationship Specialty Start Date End Date Rachna Acosta DO [address] [place] [address] PCP - General Family Medicine 03/18/23 Vanessa Champagne MD Hematology/Oncology 03/01/15 Marcelo Berry MD [address] [place], [place] [address] Referring Cardiology 04/09/23 Bacteriology Research Assistant Relationship Specialty Start Date End Date Rachna Acosta DO [address] [place] [address] PCP - General Family Medicine 03/18/23 Vanessa Champagne MD Hematology/Oncology 03/01/15 Marcelo Berry MD [address] [place] [address] Referring Cardiology 04/09/23 Bacteriology Research Assistant Relationship Specialty Start Date End Date Rachna Acosta DO [address] [place] [address] PCP - General Family Medicine 03/18/23 Vanessa Champagne MD Hematology/Oncology 03/01/15 Marcelo Berry MD [address] [place] [address] Referring Cardiology 04/09/23 Bacteriology Research Assistant Relationship Specialty Start Date End Date Rachna Acosta DO [address] [place] [address] PCP - General Family Medicine 03/18/23 Vanessa Champagne MD Hematology/Oncology 03/01/15 Marcelo Berry MD [address] [place] [address] Referring Cardiology 04/09/23 Bacteriology Research Assistant Relationship Specialty Start Date End Date Rachna Acosta DO [address] [place] [address] PCP - General Family Medicine 03/18/23 Vanessa Champagne MD Hematology/Oncology 03/01/15 Marcelo Berry MD [address] [place], [place] [address] Referring Cardiology 04/09/23 Bacteriology Research Assistant Relationship Specialty Start Date End Date Rachna Acosta DO [address] [place] [address] PCP - General Family Medicine 03/18/23 Vanessa Champagne MD Hematology/Oncology 03/01/15 Marcelo Berry MD [address] [address] Referring Cardiology 04/09/23 Team Status: Active Member Role Status Dates Dr. Rachna Acosta DO Primary Care Provider Active Team Status: Inactive Member Role Status Dates Dr. Rachna Acosta DO Primary Care Provider Active Start: March 06, 2024 End: March 06, 2024 Dr. Rachna Acosta DO Referring Provider Active St art: March 06, 2024 End: March 06, 2024 Hazel DUMONT, PA Attending Provider Active Start: March 06, 2024 End: March 06, 2024 Team Status: Inactive Member Role Status Dates Dr. Rachna Acosta DO Primary Care Provider Active Start: March 09, 2024 End: March 09, 2024 Dr. Rachna Acosta DO Attending Provider Active St art: March 09, 2024 End: March 09, 2024 Dr. Rachna Acosta DO Referring Provider Active St art: March 09, 2024 End: March 09, 2024 Hazel DUMONT, PA Other Provider Active Start: March 09, 2024 End: March 09, 2024 Team Status: Inactive Member Role Status Dates Dr. Rachna Acosta DO Primary Care Provider Active Start: March 17, 2024 End: March 17, 2024 Dr. Rachna Acosta DO Attending Provider Active St art: March 17, 2024 End: March 17, 2024 Dr. Rachna Acosta DO Referring Provider Active St art: March 17, 2024 End: March 17, 2024 Team Status: Inactive Member Role Status Dates Dr. Rachna Acosta DO Primary Care Provider Active Start: March 19, 2024 End: March 19, 2024 Hazel DUMONT, PA Attending Provider Active Start: March 19, 2024 End: March 19, 2024 Hazel Denson PA, PA Referring Provider Active Start: March 19, 2024 End: March 19, 2024 Team Status: Active Member Role Status Dates Dr. Rachna Acosta DO Primary Care Provider Active Start: March 19, 2024 Dr. Marcelo Berry MD Attending Provider Active S tart: March 19, 2024 Team Status: Inactive Member Role Status Dates Dr. Rachna Acosta DO Primary Care Provider Active Start: March 23, 2024 End: March 23, 2024 Hazel DUMONT, PA Attending Provider Active Start: March 23, 2024 End: March 23, 2024 Hazel Denson PA, PA Referring Provider Active Start: March 23, 2024 End: March 23, 2024 Team Status: Inactive Member Role Status Dates Dr. Rachna Acosta DO Primary Care Provider Active Start: March 26, 2024 End: March 26, 2024 Dr. Rachna Acosta DO Referring Provider Active St art: March 26, 2024 End: March 26, 2024 TIM Robert Attending Provider Active Start: March 26, 2024 End: March 26, 2024 Team Status: Inactive Member Role Status Dates Dr. Rachna Acosta DO Primary Care Provider Active Start: May 31, 2024 End: May 31, 2024 Dr. Omar Greene DO Emergency Provider Active Start: May 31, 2024 End: May 31, 2024 Team Status: Inactive Member Role Status Dates Dr. Rachna Acosta DO Primary Care Provider Active Start: May 31, 2024 End: May 31, 2024 Dr. Omar Greene DO Attending Provider Active Start: May 31, 2024 End: May 31, 2024 Dr. Omar Greene DO Emergency Provider Active Start: May 31, 2024 End: May 31, 2024 Team Status: Inactive Member Role Status Dates Dr. Rachna Acosta DO Primary Care Provider Active Start: June 03, 2024 End: June 03, 2024 Dr. Rachna Acosta DO Attending Provider Active St art: June 03, 2024 End: June 03, 2024 Dr. Rachna Acosta DO Referring Provider Active St art: June 03, 2024 End: June 03, 2024 Team Status: Active Member Role Status Dates Dr. Rachna Acosta DO Primary Care Provider Active Start: June 03, 2024 Dr. Rachna Acosta DO Referring Provider Active St art: June 03, 2024 Dr. Rachna Acosta DO Other Provider Active Start: June 03, 2024 Amanda Green , [employer] Attending Provider Active S tart: June 03, 2024 Team Status: Inactive Member Role Status Dates Dr. Rachna Acosta DO Primary Care Provider Active Start: June 24, 2024 End: June 24, 2024 Dr. Rachna Acosta DO Attending Provider Active St art: June 24, 2024 End: June 24, 2024 Dr. Rachna Acosta DO Referring Provider Active St art: June 24, 2024 End: June 24, 2024 Bacteriology Research Assistant Relationship Specialty Start Date End Date Ashley Acostaa Karol [address] [place] [phone] PCP - General Family Medicine 03/04/23 Bacteriology Research Assistant Relationship Specialty Start Date End Date Dave Rachna Roberson [address] [place] [phone] PCP - General Family Medicine 03/04/23 Bacteriology Research Assistant Relationship Specialty Start Date End Date Ashley Acostakarol Roberson [address] [place] [phone] PCP - General Family Medicine 03/04/23 Team Status: Active Member Role/Relationship Status Dates Dr. Rachna Acosta DO Primary Care Provider Active Team Status: Inactive Member Role/Relationship Status Dates Dr. Rachna Acosta DO Primary Care Provider Active Start: May 31, 2024 End: May 31, 2024 Dr. Omar Greene DO Attending Provider Active Start: May 31, 2024 End: May 31, 2024 Dr. Omar Greene DO Emergency Provider Active Start: May 31, 2024 End: May 31, 2024 Team Status: Inactive Member Role/Relationship Status Dates Dr. Rachna Acosta DO Primary Care Provider Active Start: June 03, 2024 End: June 03, 2024 Dr. Rachna Acosta DO Attending Provider Active St art: June 03, 2024 End: June 03, 2024 Dr. Rachna Acosta DO Referring Provider Active St art: June 03, 2024 End: June 03, 2024 Team Status: Active Member Role/Relationship Status Dates Dr. Rachna Acosta DO Primary Care Provider Active Start: June 03, 2024 Dr. Rachna Acosta DO Referring Provider Active St art: June 03, 2024 Dr. Rachna Acosta DO Other Provider Active Start: June 03, 2024 Amanda Green NP-C Attending Provider Active S tart: June 03, 2024 Team Status: Inactive Member Role/Relationship Status Dates Dr. Rachna Acosta DO Primary Care Provider Active Start: June 24, 2024 End: June 24, 2024 Dr. Rachna Acosta DO Attending Provider Active St art: June 24, 2024 End: June 24, 2024 Dr. Rachna Acosta DO Referring Provider Active St art: June 24, 2024 End: June 24, 2024 Team Status: Active Member Role/Relationship Status Dates Dr. Rachna Acosta DO Primary Care Provider Active Start: August 14, 2024 REINALDO STORM Attending Provider Active Start: August 14, 2024 REINALDO STORM Referring Provider Active Start: August 14, 2024 Team Status: Inactive Member Role/Relationship Status Dates Dr. Rachna Acosta DO Primary Care Provider Active Start: August 18, 2024 End: August 18, 2024 Dr. Rachna Acosta DO Referring Provider Active St art: August 18, 2024 End: August 18, 2024 Cinthia Kim MEDICAL MANAGER, MEDICAL MANAGER-C Attending Provider Active S tart: August 18, 2024 End: August 18, 2024 Team Status: Inactive Member Role/Relationship Status Dates Dr. Rachna Acosta DO Primary Care Provider Active Start: August 14, 2024 End: August 14, 2024 REINALDO STORM Attending Provider Active Start: August 14, 2024 End: August 14, 2024 REINALDO STORM Referring Provider Active Start: August 14, 2024 End: August 14, 2024 Team Status: Active Member Role/Relationship Status Dates Dr. Rachna Acosta DO Primary Care Provider Active Start: August 18, 2024 Cinthia Kim MEDICAL MANAGER, MEDICAL MANAGER-C Attending Provider Active S tart: August 18, 2024 Cinthia Kim MEDICAL MANAGER, MEDICAL MANAGER-C Referring Provider Active S tart: August 18, 2024 Team Status: Inactive Member Role/Relationship Status Dates Dr. Rachna Acosta DO Primary Care Provider Active Start: August 18, 2024 End: August 18, 2024 Cinthia Kim MEDICAL MANAGER, MEDICAL MANAGER-C Attending Provider Active S tart: August 18, 2024 End: August 18, 2024 Cinthia Kim MEDICAL MANAGER, MEDICAL MANAGER-C Referring Provider Active S tart: August 18, 2024 End: August 18, 2024 Team Status: Inactive Member Role/Relationship Status Dates Dr. Rachna Acosta DO Primary Care Provider Active Start: September 01, 2024 End: September 01, 2024 Cinthia Kim MEDICAL MANAGER, MEDICAL MANAGER-C Attending Provider Active S tart: September 01, 2024 End: September 01, 2024 Cinthia Kim MEDICAL MANAGER, MEDICAL MANAGER-C Referring Provider Active S tart: September 01, 2024 End: September 01, 2024 Team Status: Inactive Member Role/Relationship Status Dates Dr. Rachna Acosta DO Primary Care Provider Active Start: June 24, 2024 End: June 24, 2024 Dr. Rachna Acosta DO Attending Provider Active St art: June 24, 2024 End: June 24, 2024 Dr. Rachna Acosta DO Referring Provider Active St art: June 24, 2024 End: June 24, 2024 Team Status: Inactive Member Role/Relationship Status Dates Dr. Rachna Acosta DO Primary Care Provider Active Start: August 14, 2024 End: August 14, 2024 REINALDO STORM Attending Provider Active Start: August 14, 2024 End: August 14, 2024 REINALDO STORM Referring Provider Active Start: August 14, 2024 End: August 14, 2024 Team Status: Inactive Member Role/Relationship Status Dates Dr. Rachna Acosta DO Primary Care Provider Active Start: August 18, 2024 End: August 18, 2024 Dr. Rachna Acosta DO Referring Provider Active St art: August 18, 2024 End: August 18, 2024 Cinthia Kim MEDICAL MANAGER, MEDICAL MANAGER-C Attending Provider Active S tart: August 18, 2024 End: August 18, 2024 Team Status: Inactive Member Role/Relationship Status Dates Dr. Rachna Acosta DO Primary Care Provider Active Start: August 18, 2024 End: August 18, 2024 Cinthia Kim MEDICAL MANAGER, MEDICAL MANAGER-C Attending Provider Active S tart: August 18, 2024 End: August 18, 2024 Cinthia Kim MEDICAL MANAGER, MEDICAL MANAGER-C Referring Provider Active S tart: August 18, 2024 End: August 18, 2024 Team Status: Inactive Member Role/Relationship Status Dates Dr. Rachna Acosta DO Primary Care Provider Active Start: September 01, 2024 End: September 01, 2024 Cinthia Kim MEDICAL MANAGER, MEDICAL MANAGER-C Attending Provider Active S tart: September 01, 2024 End: September 01, 2024 Cinthia H Roof MEDICAL MANAGER, MEDICAL MANAGER-C Referring Provider Active S tart: September 01, 2024 End: September 01, 2024 Team Status: Inactive Member Role/Relationship Status Dates Dr. Rachna Acosta DO Primary Care Provider Active Start: October 01, 2024 End: October 01, 2024 Cinthia Kim MEDICAL MANAGER, MEDICAL MANAGER-C Attending Provider Active S tart: October 01, 2024 End: October 01, 2024 Cinthia Kim MEDICAL MANAGER, MEDICAL MANAGER-C Referring Provider Active S tart: October 01, 2024 End: October 01, 2024 Team Status: Inactive Member Role/Relationship Status Dates Dr. Rachna Acosta DO Primary Care Provider Active Start: August 14, 2024 End: August 14, 2024 REINALDO STORM Attending Provider Active Start: August 14, 2024 End: August 14, 2024 REINALDO STORM Referring Provider Active Start: August 14, 2024 End: August 14, 2024 Team Status: Inactive Member Role/Relationship Status Dates Dr. Rachna Acosta DO Primary Care Provider Active Start: August 18, 2024 End: August 18, 2024 Dr. Rachna Acosta DO Referring Provider Active St art: August 18, 2024 End: August 18, 2024 Cinthia Kim MEDICAL MANAGER, MEDICAL MANAGER-C Attending Provider Active S tart: August 18, 2024 End: August 18, 2024 Team Status: Inactive Member Role/Relationship Status Dates Dr. Rachna Acosta DO Primary Care Provider Active Start: August 18, 2024 End: August 18, 2024 Cinthia Kim MEDICAL MANAGER, MEDICAL MANAGER-C Attending Provider Active S tart: August 18, 2024 End: August 18, 2024 Cinthia Kim MEDICAL MANAGER, MEDICAL MANAGER-C Referring Provider Active S tart: August 18, 2024 End: August 18, 2024 Team Status: Inactive Member Role/Relationship Status Dates Dr. Rachna Acosta DO Primary Care Provider Active Start: September 01, 2024 End: September 01, 2024 Cinthia Kim MEDICAL MANAGER, MEDICAL MANAGER-C Attending Provider Active S tart: September 01, 2024 End: September 01, 2024 Cinthia Kim MEDICAL MANAGER, MEDICAL MANAGER-C Referring Provider Active S tart: September 01, 2024 End: September 01, 2024 Team Status: Inactive Member Role/Relationship Status Dates Dr. Rachna Acosta DO Primary Care Provider Active Start: October 01, 2024 End: October 01, 2024 Cinthia Kim MEDICAL MANAGER, MEDICAL MANAGER-C Attending Provider Active S tart: October 01, 2024 End: October 01, 2024 Cinthia Kim MEDICAL MANAGER, MEDICAL MANAGER-C Referring Provider Active S tart: October 01, 2024 End: October 01, 2024 Team Status: Inactive Member Role/Relationship Status Dates Dr. Rachna Acosta DO Primary Care Provider Active Start: November 03, 2024 End: November 03, 2024 Dr. Rachna Acosta DO Referring Provider Active St art: November 03, 2024 End: November 03, 2024 Cinthia Kim MEDICAL MANAGER, MEDICAL MANAGER-C Attending Provider Active S tart: November 03, 2024 End: November 03, 2024 Team Status: Active Member Role/Relationship Status Dates Dr. Rachna Acosta DO Primary care physician Active Team Status: Inactive Member Role/Relationship Status Dates Dr. Rachna Acosta DO Primary care physician Active Start: August 14, 2024 End: August 14, 2024 REINALDO STORM Attending physician Active Start : August 14, 2024 End: August 14, 2024 REINALDO STORM Referring Provider Active Start: August 14, 2024 End: August 14, 2024 Team Status: Inactive Member Role/Relationship Status Dates Dr. Rachna Acosta DO Primary care physician Active Start: August 18, 2024 End: August 18, 2024 Dr. Rachna Acosta DO Referring Provider Active St art: August 18, 2024 End: August 18, 2024 Cinthia Kim MEDICAL MANAGER, MEDICAL MANAGER-C Attending physician Active Start: August 18, 2024 End: August 18, 2024 Team Status: Inactive Member Role/Relationship Status Dates Dr. Rachna Acosta DO Primary care physician Active Start: August 18, 2024 End: August 18, 2024 Cinthia Kim MEDICAL MANAGER, MEDICAL MANAGER-C Attending physician Active Start: August 18, 2024 End: August 18, 2024 Cinthia Kim MEDICAL MANAGER, MEDICAL MANAGER-C Referring Provider Active S tart: August 18, 2024 End: August 18, 2024 Team Status: Inactive Member Role/Relationship Status Dates Dr. Rachna Acosta DO Primary care physician Active Start: September 01, 2024 End: September 01, 2024 Cinthia Kim MEDICAL MANAGER, MEDICAL MANAGER-C Attending physician Active Start: September 01, 2024 End: September 01, 2024 Cinthia Kim MEDICAL MANAGER, MEDICAL MANAGER-C Referring Provider Active S tart: September 01, 2024 End: September 01, 2024 Team Status: Inactive Member Role/Relationship Status Dates Dr. Rachna Acosta DO Primary care physician Active Start: October 01, 2024 End: October 01, 2024 Cinthia Kim MEDICAL MANAGER, MEDICAL MANAGER-C Attending physician Active Start: October 01, 2024 End: October 01, 2024 Cinthia Kim MEDICAL MANAGER, MEDICAL MANAGER-C Referring Provider Active S tart: October 01, 2024 End: October 01, 2024 Team Status: Inactive Member Role/Relationship Status Dates Dr. Rachna Acosta DO Primary care physician Active Start: November 03, 2024 End: November 03, 2024 Dr. Rachna Acosta DO Referring Provider Active St art: November 03, 2024 End: November 03, 2024 Cinthia Kim MEDICAL MANAGER, MEDICAL MANAGER-C Attending physician Active Start: November 03, 2024 End: November 03, 2024 Team Status: Inactive Member Role/Relationship Status Dates Dr. Rachna Acosta DO Primary care physician Active Start: November 03, 2024 End: November 03, 2024 Cinthia Kim MEDICAL MANAGER, MEDICAL MANAGER-C Attending physician Active Start: November 03, 2024 End: November 03, 2024 Cinthia Kim MEDICAL MANAGER, MEDICAL MANAGER-C Referring Provider Active S tart: November 03, 2024 End: November 03, 2024 Goals (unrecognized section and content) Goals may be documented in a n alternate sectionGoals may be documented in an alternate sectionGoals may be documented in an alternate sectionGoals may be documented in an alternate sectionGoals may be documented in an alternate sectionGoals may be documented in an alternate sectionGoals may be documented in an alternate sectionGoals may be documented in an alternate sectionGoals may be documented in an alternate sectionGoals may be documented in an alternate sectionGoals may be documented in an alternate sectionGoals may be documented in an alternate sectionGoals may be documented in an alternate sectionGoals may be documented in an alternate sectionGoals may be documented in an alternate sectionGoals may be documented in an alternate sectionGoals may be documented in an alternate sectionGoals may be documented in an alternate sectionGoals may be documented in an alternate section Reason for Visit (unrecogniz ed section and content) Reason Comments [facility] pt [facility] and they wanted a ENT to see her.No pain or drainage at this time Reason Comments Procedure EP: PVI/AFL RFA (off ered sooner date) Reason Comments Radiology CT Specialty Diagnoses / Procedures Referred By Patricia dunn Referred To Contact CT IMAGING Diagnoses Atrial fibrillation, persistent (HCC) Procedures CT PULMONARY VEIN W IVCON CT HEART CONTRAST EVAL CARDIAC STRUCTURE&MORPH Bear Rodarte MD [address] [place] [address] [place] [id number] Referral ID Status Reason Start Date Expiration Date V isits Requested Visits Authorized [id number] Closed Auto-Generate d Referral 05/24/2023 06/22/2024 1 1 Reason Comments Patient Education EPS - PVI/ AFL RFA Reason Comments Follow Up Phone Call Relate care dischar ge follow ex-[id number] clear Reason Comments Transmitter 90 days Reason Onset Date Comments Lung Nodule Actionable Findings Outreach Encount er 07/10/2023 Reason Comments Atrial Fibrillation Post op Reason Comments Procedure EP: PVI/AFL RFA Reason Comments New Patient Reason Onset Date Comments Results 07/29/2024 FOR RECORDS PERTAINING TO PATIENTS WHO ARE [...] BE BASED ON THE PRIMARY CLINICAL RECORDS. [employer] [facility]. provides no warranty or guarantee of the accuracy or completeness of information in this document.
[2025-02-11 20:34] LABS: Hematocrit 32.0 % (37-47); Hemoglobin 10.1 g/dL (12.0-15.0); Immature Granulocytes Count 0.030 X10^3/uL (0.0-0.0); Mean Corp Hgb Conc 31.6 g/dL (32-36); Mean Corpuscular Volume 95.5 fL (81-99); Mean Platelet Vol. 10.0 fl (6.2-12.0); NRBC Flagged by Analyzer 0 % (0-5); POSITIVE DIFFERENTIAL YES; Platelet Count 419 K/mm3 (150-450); RBC Distribution Width CV 15.3 % (11.6-14.6); RBC Distribution Width SD 53.1 fl (35.1-43.9); Red Blood Count 3.35 M/mm3 (4.2-5.4); White Blood Count 7.9 K/mm3 (4.4-11.0)
--- NOTE | 2025-02-11 20:35 | RAD_ITS ---
PROCEDURE: SHOULDER MIN 2 VIEWS 02/11/2025 REASON FOR EXAM: FALL, TRAUMA TECHNIQUE: Procedure Code: RADSH Modality: DX Procedure: SHOULDER MIN 2 VIEWS COMPARISON: None available. FINDINGS: There is an acute displaced fracture of the left humerus along the surgical neck. The glenohumeral joint remains anatomically aligned. Left pleural effusion is partially visualized. RAD/Shoulder min 2 Views IMPRESSION: Acute displaced left humerus fracture along the surgical neck. Partially visualized pleural effusion. Reading Location: [id number]
[2025-02-11 21:10] LABS: Anion Gap 17 (7-18); BUN 30 mg/dL (4-19); BUN/Creat Ratio 27.4 RATIO (10-20); Calcium,Total 8.8 mg/dL (7.6-11.0); Carbon Dioxide 18.0 mmol/L (20.0-29.0); Chloride 98 mmol/L (96-106); Estimated Creatinine Clearance 33.91 ml/min (50-250); Glucose 96 mg/dL (70-99); Potassium 4.4 mmol/L (3.5-5.1)
--- NOTE | 2025-02-11 21:10 | CT_ITS ---
PROCEDURE: BRAIN/HEAD WITHOUT CONTRAST 02/11/2025 REASON FOR EXAM: ? HEAD BLEED, TRAUMA TECHNIQUE: Procedure Code: CTBR Modality: CT Procedure: BRAIN/HEAD WITHOUT CONTRAST Coronal and Sagittal reconstruction series were provided. One or more dose reduction techniques were used (e.g., Automated exposure control, adjustment of the mA and/or kV according to patient size, use of iterative reconstruction technique. RADIATION DOSE SUMMARY: DLP: 786.11 mGycm COMPARISON: CT head of the same day at 8:26 p.m. FINDINGS: The previously seen punctate hyperdensities in the right frontal lobe are no longer visualized and intervertebral artifact. No acute hemorrhage. No acute transcortical infarct. Patchy periventricular and subcortical white matter hypodensities likely reflect chronic microvascular ischemic changes. No significant mass effect or brain herniation. Global cerebral volume loss. No hydrocephalus. No extra-axial fluid collection. The basal cisterns are patent. The mastoid air cells are clear. The paranasal sinuses are predominantly clear. Bilateral ocular lens replacements. The calvarium appears intact. CT/Brain/Head without Contrast IMPRESSION: The previously seen punctate hyperdensities in the right frontal lobe are favor ed to be artifact. No CT evidence of acute intracranial hemorrhage, transcortical infarct, or significant mass effect. No other significant changes. Reading Location: [id number]
[2025-02-11 21:42] VITALS: BP 92/56; PULSE 73; RESP 16; O2SAT 97
[2025-02-11] MEDS: 0.9% Normal Saline (500mL Bag) 250 ML 999 ML IV (21:45)
[2025-02-11 23:00] VITALS: BP 97/60; PULSE 65; RESP 16; TEMP 36.6; O2SAT 98
--- NOTE | 2025-02-11 23:22 | PCM.HP.STD ---
HPI - General General Date of Admission: 02/11/25 Date of Service: 02/11/25 HPI Narrative CRISELDA STORM, is a 79 F with past medical history significant for nonischemic cardiomyopathy (EF improved 60%), A-fib s/p ablation in 2023 on Eliquis, recurrent left pleural effusion s/p thoracentesis who is brought from home after she fell and broke her left arm. Patient was stepping into the kitchen and lost her balance and fell backwards. She hit the back of her head and injured her left shoulder. Denies any dizziness, lightheadedness, blurred vision, severe headache, loss consciousness or focal deficits that preceded or followed the fall. Patient then developed severe pain in the left shoulder and restricted range of motion in the left arm. Initial CT head showed a possible intraparenchymal hemorrhage which then turned to be artifact on repeat CT. Left shoulder x-ray showed proximal humeral surgical neck fracture, case was discussed with Dr. Lagunas from orthopedic who stated this is nonoperative. Patient will need pain control and sling. She remained neurovascularly intact distally X-ray also showed left pleural effusion but patient stated that she does not think she has worsening symptoms that necessitate thoracentesis. Last tap was in July 650 mL fluid was drained, prior to that was in May. [facility] Medical History Neuropathy Hyperlipidemia Vitamin D deficiency Osteoporosis Bilateral cataracts Non-ischemic cardiomyopathy History of bilateral breast cancer Bilateral pleural effusion Atrial flutter Home Medications ?Medication ?Instructions ?Recorded ?Last Taken ?Type handicap Placcard #1 ea 12/20/22 Unknown Rx sacubitril 24 mg-valsartan 26 mg 1 tab PO BID #180 tabs 02/26/24 Unknown Rx tablet (Entresto) apixaban 5 mg tablet (Eliquis) 5 mg PO BID #180 tabs 04/06/24 Unknown Rx empagliflozin 10 mg tablet 10 mg PO DAILY #30 tabs 06/08/24 Unknown Rx (Jardiance) budesonide-formoterol HFA 160 2 puff inhalation BID PRN 11/03/24 Unknown History mcg-4.5 mcg/actuation aerosol shortness of breath or wheezing inhaler (Breyna) furosemide 40 mg tablet 40 mg PO DAILY weight gain 01/25/25 Unknown History spironolactone 25 mg tablet 25 mg PO DAILY #30 tabs 01/25/25 Unknown Rx Held on 02/11/25. Instructions: for low BP metoprolol tartrate 50 mg tablet 50 mg PO BID 02/11/25 Unknown History Allergy/AdvReac Type Severity Reaction Status Date / Time No Known Allergies Allergy Verified 02/11/25 19:45 Family History Father Myocardial infarction Brother Myocardial infarction Surgical History Hx of atrioventricular node ablation History of thoracentesis (08/14/24) History of partial mastectomy of left breast History of open reduction and internal fixation (ORIF) procedure Social History household members: spouse housing: house Smoking Status: Former smoker how long ago did patient quit smokin years alcohol intake: current alcohol intake frequency: 0-2 drinks per day Alcohol type: wine substance use type: does not use caffeine: No ROS Constitutional Constitutional: Denies fever(s) or poor appetite ENT HEENT: Reports none Cardiovascular Cardiovascular: Reports dyspnea and dyspnea on exertion; Denies chest pain Respiratory/Chest Respiratory/Chest: Denies cough or wheezing Gastrointestinal Gastrointestinal: Denies abdominal pain or change in bowel habits Genitourinary Genitourinary: Denies change in urinary stream or dysuria Musculoskeletal Musculoskeletal: Reports arthralgias and joint pain; Denies myalgias Integumentary Integumentary: Reports none Neurologic Neurologic: Denies abnormal speech, dizziness, focal weakness, loss of vision or numbness Hematologic/Lymphatic Hematologic/Lymphatic: Reports none Patient's Goals Of Care . What would you like to achieve or improve as a result of your hospital stay?: Get better Vital Signs Vital Signs Vital Signs: 02/11/25 19:45 02/11/25 19:55 02/11/25 21:42 Temperature 96.5 F L Temperature Source Temporal Pulse Rate 68 73 Respiratory Rate 18 16 Respiratory Effort Normal Non-Labored Respiratory Depth Normal Respiratory Pattern Normal Blood Pressure 115/79 92/56 L Blood Pressure Mean 91 68 Pulse Ox 99 99 97 Oxygen Delivery Method Room Air Room Air Room Air 02/11/25 23:00 02/11/25 23:00 Temperature 97.8 F Temperature Source Pulse Rate 65 65 Respiratory Rate 16 16 Respiratory Effort Respiratory Depth Respiratory Pattern Blood Pressure 97/60 97/60 Blood Pressure Mean 72 72 Pulse Ox 98 98 Oxygen Delivery Method Room Air Weight Weight: 50.5 kg Body Mass Index (BMI) 19.1 Physical Exam Const alert and oriented x3 HEENT normocephalic and head/scalp atraumatic Eyes EOMs intact bilaterally; Negative for no scleral icterus Neck supple Resp normal respiratory effort and clear to auscultation bilaterally Cardio regular rate and regular rhythm; Negative for no murmurs GI normal to inspection, nondistended, normoactive bowel sounds; Negative for non-tender no CVA tenderness Extremity Extremity Narrative: Left upper arm deformity, swelling tenderness and restricted range of motion. Intact neurovascular bundle distally Skin no rashes or lesions noted Neuro oriented x3 and moves all extremities Results Lab / Micro Data 02/11/25 20:18 02/11/25 20:18 Labs: Laboratory Results - last 24 hr 02/11/25 20:18: WBC 7.9, RBC 3.35 L, Hgb 10.1 L, Hct 32.0 L, MCV 95.5, MCH 30.1, MCHC 31.6 L, RDW Std Deviation 53.1 H, RDW Coeff of Ingris 15.3 H, Plt Count 419, MPV 10.0, Immature Gran % (Auto) 0.400, Neut % (Auto) 83.8 H, Lymph % (Auto) 7.0 L, [place] % (Auto) 6.1, Eos % (Auto) 1.6, Baso % (Auto) 1.1 H, Absolute Neuts (auto) 6.6, Absolute Lymphs (auto) 0.55 L, Nucleated RBC % 0, Sodium 132 L, Potassium 4.4, Chloride 98, Carbon Dioxide 18.0 L, Anion Gap 17, BUN 30 H, Creatinine 1.09, Estim Creat Clear Calc 33.91 L, Est GFR (MDRD) Non-Af 52 L, BUN/Creatinine Ratio 27.4 H, Glucose 96, Calcium 8.8 Micro: Microbiology 02/11/25 22:37 Stool Stool Occult Blood (ISHMAEL) - Final Occult Blood Positive Imaging Radiology Impression Brain CT 02/11/25 20:25 IMPRESSION: 1. Trace punctate hyperdensities in the right frontal lobe questionable for artifactual versus trace intraparenchymal hemorrhage. Attention to short-term follow-up. 2. No acute transcortical infarct. 3. No acute fracture or dislocation in the cervical spine. Reading Location: [facility] Cervical Spine CT 02/11/25 20:25 IMPRESSION: 1. Trace punctate hyperdensities in the right frontal lobe questionable for artifactual versus trace intraparenchymal hemorrhage. Attention to short-term follow-up. 2. No acute transcortical infarct. 3. No acute fracture or dislocation in the cervical spine. Reading Location: [facility] Shoulder X-Ray 02/11/25 20:35 IMPRESSION: Acute displaced left humerus fracture along the surgical neck. Partially visualized pleural effusion. Reading Location: [facility] Brain CT 02/11/25 21:10 IMPRESSION: The previously seen punctate hyperdensities in the right frontal lobe are favored to be artifact. No CT evidence of acute intracranial hemorrhage, transcortical infarct, or significant mass effect. No other significant changes. Reading Location: [facility] Assessment & Plan Assessment/Plan (1) Closed fracture of left proximal humerus: QUALIFIERS: Encounter type: initial encounter Fracture morphology: unspecified fracture morphology Qualified Code(s): S42.A - Unspecified fracture of upper end of left humerus, initial encounter for closed fracture (2) Fall: QUALIFIERS: Encounter type: initial encounter Qualified Code(s): W19.XXXA - Unspecified fall, initial encounter (3) Anemia: QUALIFIERS: Anemia type: unspecified type Qualified Code(s): D64.9 - Anemia, unspecified (4) Chronic anticoagulation: (5) Fecal occult blood test positive: (6) Recurrent left pleural effusion: (7) Non-ischemic cardiomyopathy: (8) Atrial flutter: QUALIFIERS: Atrial flutter type: unspecified Qualified Code(s): I48.92 - Unspecified atrial flutter PLAN: Plan Admission to [facility] Left humerus fracture: Sling and analgesia. Physical therapy and outpatient therapy. Orthopedic evaluation (nonoperative management). Distal neurovascular checks Fall: Nothing suggest orthostasis but soft blood pressure and heart rate can definitely contribute. Metoprolol was weaned off quickly as outpatient then heart rate rebounded to 130 then daughter resumed a full dose metoprolol. Will start weaning metoprolol again but more gradually Anemia: Gradual decline in hemoglobin currently 10. On Eliquis. Positive fecal occult blood by ED. No symptoms or signs of active bleeding. Will check iron studies, folate and B12. Plan for outpatient follow-up Left effusion: No extensive workup can be found, just protein and LDH in the system and negative cytology. Was referred to [facility] cardiothoracic surgery, options were offered including chest tube, PleurX, decortication etc. but patient opted only to have repeat arthrocentesis if needed and she currently does not feel she is there yet Cardiomyopathy: Compensated euvolemic, class II-III NYHA at baseline unknown if related to CHF or just deconditioning, EF improved 60% as of February, from 10 to 20% initially. Continue Entresto, beta-nba (currently weaned off because of low rate), Lasix. Aldactone was prescribed but patient did not take it Flutter: Ablation done in June 2023. Continue Eliquis for CVA prevention Heart rate in the 60s, cardiology this month weaned metoprolol 50 mg twice daily to 50 mg once daily for 1 week then stopped it, then heart rate rebounded to 130 and daughter resumed full dose. Plan: Resume weaning, 25 mg twice daily for a week then 12.5 twice daily etc. daughter is instructed clearly on very slow gradual weaning Charges/Coding Visit Charges Inpatient E&M: 94778 Init Hosp L3
[2025-02-12] VITALS (12 sets, daily range): BP systolic 70–105; BP diastolic 40–67; PULSE 66–87; RESP 16–20; TEMP 36.3–36.6; O2SAT 92–97; BMI 18.4
--- OUTSIDE RECORDS SUMMARY | 2025-02-12 | XMS RPT_ITS | CCD ---
Author Organization [facility] CliniSypr Care Team Providers Care Inspectors And Regulatory Officers Name Role Phone REHMUS, VANESSA H Unavailable [...] ilable Yovana Pierre MD Primary Care Provider [phone] Rachna Acosta DO Primary Care Provider ABHISHEK ANDREWS Attending Unavailable RACHNA ACOSTA Primary Care Unavailable RACHNA ACOSTA Primary Care Unavailable ABHISHEK ANDREWS Attending Unavailable Dr. Rachna Acosta Primary Care Provider [phone] Dr. Rachna Acosta Referring Provider [phone] Marcelo Berry Attending Provider [phone] Rachna Acosta Primary Care Provider Dr. Rachna Acosta Referring Provider Dr. Marcelo Berry Attending Provider [phone] Jarett DUMONT, TIM Vasquez Attending Provider Dr. Marcelo Berry Referring Provider [phone] Dr. Marcelo Berry Other Provider Dr. Alejandro Ruiz Attending Provider Dr. Magalie Fernandez Attending Provider [facility] Rachna Madera Primary Care Provider Dr. [...] Dr. Omar Greene DO Attending Provider [phone] Dave KIM, Dr. Briscoe Other Provider Peter PAWN SHOP KEEPER-C, Amanda Attending Provider Malys, Rachna A Primary Care Provider EMETERIO MALCOLM Attending Unavailable EMETERIO MALCOLM Referring Unavailable MALYS, RACHNA Primary Care Unavailable EMETERIO MALCOLM Attending Unavailable MALYS, RACHNA Primary Care Unavailable Malys DO, Dr. Briscoe Primary Care Provider Dave DO, Dr. Briscoe Attending Provider [phone] Malgabbi DO, Dr. Briscoe Referring Provider EMETERIO MALCOLM Attending Provider EMETERIO MALCOLM Referring Provider Roof PAWN SHOP KEEPER-C, Cinthia Huntley Attending Provider Roof PAWN SHOP KEEPER-C, Cinthia Huntley Referring Provider Dave DO, Dr. Briscoe Primary Care Provider Dave DO, Dr. Briscoe Attending Provider [phone] Dave DO, Dr. Briscoe Referring Provider Malgabbi DO, Dr. Briscoe Primary Care Provider [phone] Dave DO, Dr. Briscoe Referring Provider Dave DO, Dr. Briscoe Primary Care Physician EMETERIO MALCOLM Attending Physician Roof PAWN SHOP KEEPER-C, Cinthia Huntley Attending Physician [phone] Malys, Rachna Attending Unavailable Malys, Rachna Primary Care Unavailable Malys, Rachna Primary Care Unavailable Malys, Rachna Referring Unavailable Malys, Rachna Attending Unavailable Malys, Rachna Attending Unavailable Malys, Rachna Primary Care Unavailable Malys, Rachna Referring Unavailable Jarett DUMONT, Hazel Vasquez Consulting Unavail able Kristi, Marcelo Attending Unavailable Malys, Rachna Primary Care Unavailable Roof PAWN SHOP KEEPER, Cinthia Huntley Attending Unavailable Roof PAWN SHOP KEEPER, Cinthia Huntley Referring Unavailable Malys, Rachna Primary Care Unavailable Malys, Rachna Attending Unavailable Malys, Rachna Primary Care Unavailable Malys, Rachna Referring Unavailable Roof PAWN SHOP KEEPER, Cinthia H Referring Unavailable Malys, Rachna Primary Care Unavailable Roof PAWN SHOP KEEPER, Cinthia Huntley Attending Unavailable Malys, Rachna Attending Unavailable Malys, Rachna Referring Unavailable Malys, Rachna Primary Care Unavailable Malys, Rachna Primary Care Unavailable Jarett DUMONT, Hazel Vasquez Referring Unavail able Jarett DUMONT, Hazel Vsaquez Attending Unavail able Amanda Green Attending Unavailable Malys, Rachna Primary Care Unavailable Malys, Rachna Consulting Unavailable Malys, Rachna Referring Unavailable Roof PAWN SHOP KEEPER, Cinthia Huntley Attending Unavailable Malys, Rachna Referring [...] DUMONT, Hazel Vasquez Attending Unavail able Roof PAWN SHOP KEEPER, Cinthia Huntley Attending Unavailable Malys, Rachna Primary Care Unavailable Malys, Rachna Referring Unavailable Malys, Rachna Referring Unavailable Malys, Rachna Primary Care Unavailable Faith Orta Attending Unavailable Malys, Rachna Primary Care Unavailable All Shay Referring Unavailable All Shay Attending Unavailable Roof PAWN SHOP KEEPER, Cinthia H Referring Unavailable Roof PAWN SHOP KEEPER, Cinthia Huntley Attending Unavailable Malys, Rachna Primary Care Unavailable Roof PAWN SHOP KEEPER, Cinthia H Referring Unavailable Roof PAWN SHOP KEEPER, Cinthia H Attending Unavailable Malys, Rachna Primary Care Unavailable Malys, Rachna Primary Care Unavailable Jarett DUMONT, Hazel Vasquez Referring Unavail able Jarett DUMONT, Hazel Vasuqez Attending Unavail able Allergies Allergy Classification Reported Allergen(s) Allergy Type Date of Onset Reaction(s) Facility (1 source) Amoxicillin Drug Allergy 03-06-2024 [facility] Repository (1 source) Clavulanate Drug Allergy 03-06-2024 [facility] Repository Medications Current Medications Medication Drug Class(es) [...] of unspecified wall of thorax, initial encounter [id number] 200 actuat albuterol 0.09 mg/actuat metered dose [...] (4 sources) Drug therapy finding; Translations: [Other senior care (current) drug therapy] Onset: 10-03-2023 06-26-2023 Episodic [...] Viewson 0 L/S Spine Min 4 Views [facility] Imaging Services [address] [place], [place] [address] L/S Spine Min 4 Views MR#: [id number] Acct: [id number] Name: CRISELDA STORM Rep #: [id number] : 1945 F 79 From: Vince Snowden MD PCP: Dr. Rachna Acosta DO Status: REG CLI Study: L/S Spine Min 4 Views Date of Exam: 12/25/24 Exam# [id number] Ordering Dr: Rachna Acosta DO PROCEDURE: L/S [...] compression deformities of undetermined age. Reading Location: [facility] CC: Dr. Rachna Acosta DO Physician Assistant Certified: Signed Normal [facility] Cardiology Visit Reporton Cardiology Visit Report [facility] [address] [place] [address] OFFICE VISIT Date of Service: 11/03/24 MR#: [id number] Acct: [id number] Name: CRISELDA STORM Rep #: [id number] : 1945 Provider: LEX minaya Age/Sex: 79/F Location: [facility] [place] Status: Signed HPI HPI History of Present [...] referred to EP. She was evaluated at [facility] in 03/2023. It was recommended that [...] an echocardiogram done in March 2023 at [facility]. Ejection fraction was noted to be [...] Intake Visit Reasons: 1 Y FU/MOVED FROM [facility] Drilling Field Specialist Required: No Accompanied by: Daughter Is patient [...] DAILY weigh (more content not included)... Normal [facility] Chest PA and Lateralon 11-03 Chest PA and Lateral [facility] Imaging Services [address] [place], [place] [id number] Chest PA and Lateral MR#: [id number] Acct: [id number] Name: CRISELDA STORM Rep #: [id number] : 1945 F 79 From: Luis Woodward MD PCP: Dr. Rachna Acosta DO Status: REG CLI Study: Chest PA and Lateral Date of Exam: 11/03/24 Exam# [id number] Ordering Dr: Cinthia Kim PAWN SHOP KEEPER PAWN SHOP KEEPER-C PROCEDURE: CHEST PA AND LATERAL 11/03/2024 REASON [...] and pleural fluid. No pneumothorax. Reading Location: [id number] CC: PAWN SHOP KEEPER-C Cinthia Kim; Dr. Rachna Acosta DO Physician Assistant Certified: Signed Normal [facility] Absolute lymphocyte countOrd ered By: Cinthia Kim on 10-01-2024 Lymphocytes Auto (Unsp spec) [#/Vol] 0.68 10*3/uL Low 0.83-4.51 [facility] Absolute neutrophil countOrd ered By: Cinthia Kim on 10-01-2024 Neutrophils (Bld) [#/Vol] 4.4 10*3/uL 2.0-7.7 [facility] Anion gap in Serum or Plasma Ordered By: Cinthia Kim on 10-01-2024 Anion gap [Moles/Vol] 15 mmol/L 5-15 [facility] Automated lymphocyte count a s percentage of total leukocytesOrdered By: Cinthia Kim on 10-01-2024 Lymphocytes/100 WBC Auto (Unsp spec) 11.5 % Low 19-41 [facility] BUN/creatinine ratioOrdered By: Cinthia Julio on 10-01-2024 Urea nitrogen/Creatinine [Mass ratio] 23.2 mg/mg High 10-20 [facility] Basic Metabolic Profile (BMP )on 10-01-2024 BUN/CRE 23.2 RATIO High 10-20 [facility] Comment on above: Performed By: #### L 503.7505, L100.0100, L500.2500 #### [facility] Laboratory [address] [place], [address] Calcium [Mass/Vol] 9.7 mg/dL Normal 7.6-11.0 [facility] Comment on above: Performed By: #### L 503.7505, L100.0100, L500.2500 #### [facility] [address] [place], [address] Chloride [Moles/Vol] 94 mmol/L Low 98-108 [facility] Comment on above: Performed By: #### L 503.7505, L100.0100, L500.2500 #### [facility] [address] [place], [address] CO2 [Moles/Vol] 25.5 mmol/L Normal 21.0-32.0 [facility] Comment on above: Performed By: #### L 503.7505, L100.0100, L500.2500 #### [facility] [address] [place], [address] Creatinine [Mass/Vol] 0.83 mg/dL Normal 0.70-1.20 [facility] Comment on above: Performed By: #### L 503.7505, L100.0100, L500.2500 #### [facility] [address] [place], [address] GAP 15 Normal 5-15 [facility] Comment on above: Performed By: #### L 503.7505, L100.0100, L500.2500 #### [facility] [address] [place], [address] GFR/1.73 sq M.predicted among non-blacks MDRD (S/P/Bld) [Vol rate/Area] 72 mL/min/{1.73_m2} Normal >60 [facility] Comment on above: Result Comment: mL/m in/1.73m2 CKD-EPI Creatinine Equation (2020) Performed By: #### L 503.7505, L100.0100, L500.2500 #### [facility] [address] [place], [address] Glucose [Mass/Vol] 90 mg/dL Normal 70-99 [facility] Comment on above: Performed By: #### L 503.7505, L100.0100, L500.2500 #### [facility] [address] [place], [address] Potassium [Moles/Vol] 4.4 mmol/L Normal 3.3-5.1 [facility] Comment on above: Performed By: #### L 503.7505, L100.0100, L500.2500 #### [facility] [address] [place], [address] Sodium [Moles/Vol] 134 mmol/L Normal 133-145 [facility] Comment on above: Performed By: #### L 503.7505, L100.0100, L500.2500 #### [facility] [address] [place], [address] Urea nitrogen [Mass/Vol] 19 mg/dL Normal 4-19 [facility] Comment on above: Performed By: #### L 503.7505, L100.0100, L500.2500 #### [facility] [address] [place], [address] Basophil percentageOrdered B y: Cinthia Kim on 10-01-2024 Basophils/100 WBC (Bld) 1.2 % High 0-1 [facility] CBC W/Diff, Automatedon 09-18 Absolute Lymph 0.68 X10 3/uL Low 0.83-4.51 [facility] Comment on above: Performed By: #### L 503.7505, L100.0100, L500.2500 #### [facility] [address] [place], [address] Absolute Neut 4.4 X10 3/uL Normal 2.0-7.7 [facility] Comment on above: Performed By: #### L 503.7505, L100.0100, L500.2500 #### [facility] [address] [place], [address] Basophils/100 WBC (Bld) 1.2 % High 0-1 [facility] Comment on above: Performed By: #### L 503.7505, L100.0100, L500.2500 #### [facility] [address] [place], [address] Eosinophils/100 WBC (Bld) 2.2 % Normal 0-5 [facility] Comment on above: Performed By: #### L 503.7505, L100.0100, L500.2500 #### [facility] [address] [place], [address] Erythrocyte distribution width (RBC) [Ratio] 14.2 % Normal 11.6-14.6 [facility] Comment on above: Performed By: #### L 503.7505, L100.0100, L500.2500 #### [facility] [address] [place], [address] Hematocrit (Bld) [Volume fraction] 36.5 % Low 37-47 [facility] Comment on above: Performed By: #### L 503.7505, L100.0100, L500.2500 #### [facility] [address] [place], [address] Hemoglobin (Bld) [Mass/Vol] 11.9 g/dL Low 12.0-15.0 [facility] Comment on above: Performed By: #### L 503.7505, L100.0100, L500.2500 #### [facility] [address] [place], [address] IG% 0.500 Normal 0.0-0.9 [facility] Comment on above: Result Comment: IG% - Immature Granulocytes (promyelocytes, myelocytes and metamyelocytes) > 1% indicates that a LEFT SHIFT is Present. Performed By: #### L 503.7505, L100.0100, L500.2500 #### [facility] [address] [place], [address] Lymphocytes/100 WBC (Bld) 11.5 % Low 19-41 [facility] Comment on above: Performed By: #### L 503.7505, L100.0100, L500.2500 #### [facility] [address] [place], [address] MCH (RBC) [Entitic mass] 30.6 pg Normal 27.0-32.0 [facility] Comment on above: Performed By: #### L 503.7505, L100.0100, L500.2500 #### [facility] [address] [place], [address] MCHC (RBC) [Mass/Vol] 32.6 g/dL Normal 32-36 [facility] Comment on above: Performed By: #### L 503.7505, L100.0100, L500.2500 #### [facility] [address] [place], [address] MCV (RBC) [Entitic vol] 93.8 fL Normal 81-99 [facility] Comment on above: Performed By: #### L 503.7505, L100.0100, L500.2500 #### [facility] [address] [place], [address] Monocytes/100 WBC (Bld) 10.7 % High 0-10 [facility] Comment on above: Performed By: #### L 503.7505, L100.0100, L500.2500 #### [facility] [address] [place], [address] Neutrophils/100 WBC (Bld) 73.9 % High 47-70 [facility] Comment on above: Performed By: #### L 503.7505, L100.0100, L500.2500 #### [facility] [address] [place], [address] Nucleated RBC (Bld) [#/Vol] 0 10*3/uL Normal 0-5 [facility] Comment on above: Performed By: #### L 503.7505, L100.0100, L500.2500 #### [facility] [address] [place], [address] Platelet mean volume (Bld) [Entitic vol] 9.9 fL Normal 6.2-12.0 [facility] Comment on above: Performed By: #### L 503.7505, L100.0100, L500.2500 #### [facility] [address] [place], [address] Platelets (Bld) [#/Vol] 551 10*3/uL High 150-450 [facility] Comment on above: Performed By: #### L 503.7505, L100.0100, L500.2500 #### [facility] [address] [place], [address] RBC (Bld) [#/Vol] 3.89 10*6/uL Low 4.2-5.4 [facility] Comment on above: Performed By: #### L 503.7505, L100.0100, L500.2500 #### [facility] [address] [place], [address] RDW SD 49.1 fl High 35.1-43.9 [facility] Comment on above: Performed By: #### L 503.7505, L100.0100, L500.2500 #### [facility] [address] [place], [address] WBC (Bld) [#/Vol] 5.9 10*3/uL Normal 4.4-11.0 [facility] Comment on above: Performed By: #### L 503.7505, L100.0100, L500.2500 #### [facility] [address] [place], [address] Carbon dioxide, total [Moles /volume] in Central venous bloodOrdered By: Cinthia Kim on 10-01-2024 CO2 [Moles/Vol] 25.5 mmol/L 21.0-32.0 [facility] Chest PA and Lateralon 10-01 Chest PA and Lateral [facility] Imaging Services [address] [place] [address] Chest PA and Lateral MR#: [id number] Acct: [id number] Name: CRISELDA STORM Rep #: [id number] : 1945 F 79 From: Dorian Silva MD PCP: Dr. Rachna Acosta, DO Status: REG CLI Study: Chest PA and Lateral Date of Exam: 10/01/24 Exam# [id number] Ordering Dr: Cinthia Kim PAWN SHOP KEEPER PAWN SHOP KEEPER-C PROCEDURE: CHEST PA AND LATERAL 10/01/2024 REASON [...] study. Small left pleural effusion. Reading Location: [id number] CC: LEX Kim; Dr. Rachna Acosta DO Physician Assistant Certified: Signed Normal [facility] Chloride assayOrdered By: Hailey Kim on 10-01-2024 Chloride [Moles/Vol] 94 mmol/L Low 98-108 [facility] Eosinophil percentageOrdered By: Cinthia Kim on 10-01-2024 Eosinophils/100 WBC (Bld) 2.2 % 0-5 [facility] Erythrocyte distribution wid th ratioOrdered By: Cinthia Kim on 10-01-2024 Erythrocyte distribution width (RBC) [Ratio] 14.2 % 11.6-14.6 [facility] Erythrocyte distribution wid th standard deviationOrdered By: Cinthia Kim on 10-01-2024 Erythrocyte distribution width (RBC) [Ratio] 49.1 fl High 35.1-43.9 [facility] Fecal Fat, Qualitativeon FATS, NEUTRAL Normal [facility] Comment on above: Result Comment: OLD STOOL ORDERED. PATIENT NO LONGER NEEDS TO DO THEM Performed By: #### L 7000.0300 #### [facility] [address] [place], [place], [address] FATS, TOTAL Normal [facility] Comment on above: Result Comment: OLD STOOL ORDERED. PATIENT NO LONGER NEEDS TO DO THEM Performed By: #### L 7000.0300 #### [facility] [address] [place], [place], [address] Glomerular filtration rate ( GFR) estimation/1.73 sq m using serum, plasma, or whole bOrdered By: Cinthia Kim on 10-01-2024 GFR/1.73 sq M.predicted among non-blacks MDRD (S/P/Bld) [Vol rate/Area] 72 mL/min/{1.73_m2} >60 [facility] Comment on above: mL/min/1.73m2 CKD-EP I Creatinine Equation (2020) Hematocrit Auto (Bld) [Volum e fraction]Ordered By: Cinthia Kim on 10-01-2024 Hematocrit (Bld) [Volume fraction] 36.5 % Low 37-47 [facility] Hemoglobin measurementOrdere d By: Cinthia Kim on 10-01-2024 Hemoglobin (Bld) [Mass/Vol] 11.9 g/dL Low 12.0-15.0 [facility] Immature granulocytes/100 WB C Auto (Bld)Ordered By: Cinthia Kim on 10-01-2024 Immature granulocytes/100 WBC (Bld) 0.500 % 0.0-0.9 [facility] Comment on above: IG% - Immature Granu locytes (promyelocytes, myelocytes and metamyelocytes) > 1% indicates that a LEFT SHIFT is Present. MCV (mean corpuscular volume ) determinationOrdered By: Cinthia Kim on 10-01-2024 MCV (RBC) [Entitic vol] 93.8 fL 81-99 [facility] Mean corpuscular hemoglobin (MCH) determinationOrdered By: Cinthia Kim on 10-01-2024 MCH (RBC) [Entitic mass] 30.6 pg 27.0-32.0 [facility] Mean corpuscular hemoglobin concentration (MCHC) determinationOrdered By: Cinthia Kim on 10-01-2024 MCHC (RBC) [Mass/Vol] 32.6 g/dL 32-36 [facility] Mean platelet volume determi nationOrdered By: Cinthia Kim on 10-01-2024 Platelet mean volume (Bld) [Entitic vol] 9.9 fL 6.2-12.0 [facility] Monocyte percentageOrdered B y: Cinthia Kim on 10-01-2024 Monocytes/100 WBC (Bld) 10.7 % High 0-10 [facility] Natriuretic peptide.B prohor ho N-Terminal [Mass/volume] in Serum or PlasmaOrdered By: Cinthia Kim on 10-01-2024 Natriuretic peptide.B prohormone N-Terminal [Mass/Vol] 1877 pg/mL High <1800 [facility] Comment on above: Heart Failure Unlike ly: < 300 pg/mLHeart Failure Likely< 50 Years: > 450 pg/mL50-75 Years: > 900 pg/mL>75 Years: > 1800 pg/mL Neutrophil percentageOrdered By: Cinthia Kim on 10-01-2024 Neutrophils/100 WBC (Bld) 73.9 % High 47-70 [facility] Nucleated red blood cell per centageOrdered By: Cinthia Kim on 10-01-2024 Nucleated RBC/100 WBC (Bld) [Ratio] 0 % 0-5 [facility] Platelet countOrdered By: Hailey Kim on 10-01-2024 Platelets (Bld) [#/Vol] 551 10*3/uL High 150-450 [facility] Potassium measurement (mass/ volume)Ordered By: Cinthia Kim on 10-01-2024 Potassium (Unsp spec) [Mass/Vol] 4.4 mmol/L 3.3-5.1 [facility] Pro- Brain NATRIURETIC PEPTI Quintin 10-01-2024 Natriuretic peptide B (Bld) [Mass/Vol] 1877 pg/mL High <=1800 [facility] Comment on above: Result Comment: Hear t Failure Unlikely: < 300 pg/mL Heart Failure Likely < 50 Years: > 450 pg/mL 50-75 Years: > 900 pg/mL >75 Years: > 1800 pg/mL Performed By: #### L 503.7505, L100.0100, L500.2500 #### [facility] [address] [place], [address] RBC Auto (Bld) [#/Vol]Ordere d By: Cinthia Kim on 10-01-2024 RBC (Bld) [#/Vol] 3.89 10*6/uL Low 4.2-5.4 [facility] Serum creatinine measurement (mass/volume)Ordered By: Cinthia Kim on 10-01-2024 Creatinine [Mass/Vol] 0.83 mg/dL 0.70-1.20 [facility] Serum glucose measurement (m ass/volume)Ordered By: Cinthia Kim on 10-01-2024 Glucose [Mass/Vol] 90 mg/dL 70-99 [facility] Serum or plasma calcium ollie urement (mass/volume)Ordered By: Cinthia Kim on 10-01-2024 Calcium [Mass/Vol] 9.7 mg/dL 7.6-11.0 [facility] Serum or plasma urea nitroge n measurement (mass/volume)Ordered By: Cinthia Kim on 10-01-2024 Urea nitrogen [Mass/Vol] 19 mg/dL 4-19 [facility] Sodium levelOrdered By: Cinthia Kim on 10-01-2024 Sodium [Moles/Vol] 134 mmol/L 133-145 [facility] White blood cell (WBC) count Ordered By: Cinthia Kim on 10-01-2024 WBC (Bld) [#/Vol] 5.9 10*3/uL 4.4-11.0 [facility] Chest PA and Lateralon 09-01 Chest PA and Lateral [facility] Imaging Services [address] [place], [place] [address] Chest PA and Lateral MR#: [id number] Acct: [id number] Name: CRISELDA STORM Rep #: [id number] : 1945 F 79 From: José Miguel Noland MD PCP: Dr. Rachna Acosta DO Status: REG CLI Study: Chest PA and Lateral Date of Exam: 09/01/24 Exam# [id number] Ordering Dr: Cinthia iKm PAWN SHOP KEEPER PAWN SHOP KEEPER-C EXAM: XR Chest, 2 Views CLINICAL INDICATION: [...] pneumonia. 2. Left pleural effusion. Reading [facility] CC: PAWN SHOP KEEPER-C Cinthia Kim; Dr. Rachna Acosta DO Physician Assistant Certified: Signed Normal [facility] Cardiology Visit Reporton Cardiology Visit Report [facility] [address] [place] [address] OFFICE VISIT Date of Service: 08/18/24 MR#: [id number] Acct: [id number] Name: CRISELDA STORM Rep #: [id number] : 1945 Provider: LEX minaya Age/Sex: 79/F Location: [facility] Status: Signed HPI HPI History of Present [...] referred to EP. She was evaluated at [facility] in 03/2023. It was recommended that [...] an echocardiogram done in March 2023 at [facility]. Ejection fraction was noted to be [...] Intake Visit Reasons: See clinical note: thoracentesis Drilling Field Specialist Required: No Is patient in pain?: No [...] PRN 08/18/24 (more content not included)... Normal [facility] Chest PA and Lateralon 08-18 Chest PA and Lateral [facility] Imaging Services [address] [place] [address] Chest PA and Lateral MR#: [id number] Acct: [id number] Name: EMETERIOCRISELDA Christina Rep #: [id number] : 1945 F 79 From: Abhay Lala MD PCP: Dr. Rachna Acosta, Status: REG CLI Study: Chest PA and Lateral Date of Exam: 08/18/24 Exam# [id number] Ordering Dr: Cinthia Kim PAWN SHOP KEEPER PAWN SHOP KEEPER-C PROCEDURE: CHEST PA AND LATERAL 08/18/2024 REASON [...] right base faint airspace disease. Reading Location: [place] [address] CC: LEX Kim; Dr. Rachna Acosta DO Physician Assistant Certified: Signed [facility] Thoracentesis W USon 025 Thoracentesis W US [facility] Imaging Services [address] [place] [address] Thoracentesis W US MR#: [id number] Acct: [id number] Name: CRISELDA STORM Rep #: [id number] : 1945 F 79 From: Juve Haque PCP: Dr. Rachna Acosta DO Status: REG CLI Study: Thoracentesis W US Date of Exam: 08/14/24 Exam# [id number] Ordering Dr: EMETERIO MALCOLM PROCEDURE: THORACENTESIS W US 08/14/2024 REASON FOR EXAM: RECURRENT PLEURAL EFFUSION TECHNIQUE: THORACENTESIS W US, left COMPARISON: Prior thoracentesis of 06/03/2024. FINDINGS: Following informed consent, and using standard sterile technique, an ultrasound-guided left thoracentesis was performed via a posterior approach. 2% lidocaine local anesthesia was followed by placement of a 5 Afghan catheter into the fluid collection. Approximately 650 mL slightly blood-tinged fluid was successfully removed. No complication was encountered, the patient left the department good condition without significant complaint. US/Thoracentesis W US IMPRESSION: Successful left sided ultrasound-guided therapeutic thoracentesis. Reading Location: [place] [address] CC: Dr. Rachna Acosta DO; EMETERIO MALCOLM Physician Assistant Certified: Signed [facility] 08-05-2024 36 Pt daughter called requesting thoracentesis order faxed to [place]. Order faxed. Pt daughter states she is scheduling at [place] and will follow up with pt PCP unless her mom decides on a different route. [facility] 08-03-2024 36 Spoke to daughter wh o states they would prefer to call central scheduling due to her work schedule. Number given. [facility] 07-30-[address] Malcolm reviewed results with Coco, patient's daughter, per patient's request. Per Dr. Malcolm, plan is to schedule a thoracentesis for patient and she will call our office prn. [facility] 36on 07-29-2024 36 Name of caller: Coco Contact phone number: [phone] Relationship to Patient: Daughter Provider: Dr. Malcolm Practice: Cardiothoracic Chief Complaint/Reason for Call: Patient daughter requesting a callback to discuss imaging results of chest CT. Please advise. Best time of day caller can be reached: Any Patient advised that office/PCP has 24-48 business hours to return their call: Yes' [facility] CT CHEST W IV CONTRASTon CT CHEST W IV CONTRAST Patient Name[facility] 1945 [id number] Exam Date/Time: 07/22/2024 12:34 Procedure: CT CHEST [...] to the fourth, fifth, and sixth ribs. Manager Inspection thickness of 2.3 cm in the fourth [...] 4:39 PM EDT F/U PLEURAL EFFUSION Normal [facility] Office Visiton 07-16-2024 Follow-up visit [id number] Criselda Storm 1945 F Date Provider Department Center 07/16/2024 [address]-PIM[address]SEMETERIO CEBALLOS [facility] CT None No family history on file Level of Service:40811 [place] OFFICE/OP CONSLTJ NEW/EST PT MOD MDM 40 MINUTES Reason for Visit and Comments: New Patient [542] Normal [facility] Progress Noteon 07-16-2024 Progress Note [facility] CARDIOVASCULAR & THORACIC SURGERY [address] [facility] [address] [facility] [address] Dept: [phone] Dept Loc: [phone] Visit type: New Reason for Visit: Pleural [...] and office visit notes from cardiology in [place]. Even without this information I did propose [...] History Marital status: ? Work history: Retired [place] status: Never Served Social History[4] Allergies Allergies[5] [...] content gonzalo (more content not included)... Normal [facility] Absolute lymphocyte countOrd ered By: Rachna Acosta on 06-24-2024 Lymphocytes Auto (Unsp spec) [#/Vol] 0.99 10*3/uL 0.83-4.51 [facility] Absolute neutrophil countOrd ered By: Rachna Acosta on 06-24-2024 Neutrophils (Bld) [#/Vol] 3.8 10*3/uL 2.0-7.7 [facility] Anion gap in Serum or Plasma Ordered By: Rachna Acosta on 06-24-2024 Anion gap [Moles/Vol] 17 mmol/L High 5-15 [facility] Automated lymphocyte count a s percentage of total leukocytesOrdered By: Rachna Acosta on 06-24-2024 Lymphocytes/100 WBC Auto (Unsp spec) 17.0 % Low 19-41 [facility] BUN/creatinine ratioOrdered By: Rachna Acosta on 06-24-2024 Urea nitrogen/Creatinine [Mass ratio] 19.5 mg/mg 10-20 [facility] Basophil percentageOrdered B y: Rachna Acosta on 06-24-2024 Basophils/100 WBC (Bld) 1.5 % High 0-1 [facility] Bilirubin, totalOrdered By: Rachna Acosta on 06-24-2024 Bilirubin [Mass/Vol] 0.44 mg/dL 0.00-1.30 [facility] CBC W/Diff, Automatedon Absolute Lymph 0.99 X10 3/uL Normal 0.83-4.51 [facility] Comment on above: Performed By: #### L 501.9520, L100.0100, L500.4050 ####[facility] [address] [place], [address] Absolute Neut 3.8 X10 3/uL Normal 2.0-7.7 [facility] Comment on above: Performed By: #### L 501.9520, L100.0100, L500.4050 ####[facility] [address] [place], [address] Basophils/100 WBC (Bld) 1.5 % High 0-1 [facility] Comment on above: Performed By: #### L 501.9520, L100.0100, L500.4050 ####[facility] [address] [place], [address] Eosinophils/100 WBC (Bld) 2.9 % Normal 0-5 [facility] Comment on above: Performed By: #### L 501.9520, L100.0100, L500.4050 ####[facility] [address] [place], [address] Erythrocyte distribution width (RBC) [Ratio] 14.3 % Normal 11.6-14.6 [facility] Comment on above: Performed By: #### L 501.9520, L100.0100, L500.4050 ####[facility] [address] [place], [address] Hematocrit (Bld) [Volume fraction] 37.8 % Normal 37-47 [facility] Comment on above: Performed By: #### L 501.9520, L100.0100, L500.4050 ####[facility] [address] [place], [address] Hemoglobin (Bld) [Mass/Vol] 12.3 g/dL Normal 12.0-15.0 [facility] Comment on above: Performed By: #### L 501.9520, L100.0100, L500.4050 ####[facility] [address] [place], [address] IG% 0.300 Normal 0.0-0.9 [facility] Comment on above: Result Comment: IG% - Immature Granulocytes (promyelocytes, myelocytes and metamyelocytes) > 1% indicates that a LEFT SHIFT is Present. Performed By: #### L 501.9520, L100.0100, L500.4050 ####[facility] [address] [place], [address] Lymphocytes/100 WBC (Bld) 17.0 % Low 19-41 [facility] Comment on above: Performed By: #### L 501.9520, L100.0100, L500.4050 ####[facility] [address] [place], [address] MCH (RBC) [Entitic mass] 30.9 pg Normal 27.0-32.0 [facility] Comment on above: Performed By: #### L 501.9520, L100.0100, L500.4050 ####[facility] [address] [place], [address] MCHC (RBC) [Mass/Vol] 32.5 g/dL Normal 32-36 [facility] Comment on above: Performed By: #### L 501.9520, L100.0100, L500.4050 ####[facility] [address] [place], [address] MCV (RBC) [Entitic vol] 95.0 fL Normal 81-99 [facility] Comment on above: Performed By: #### L 501.9520, L100.0100, L500.4050 ####[facility] [address] [place], [address] Monocytes/100 WBC (Bld) 12.5 % High 0-10 [facility] Comment on above: Performed By: #### L 501.9520, L100.0100, L500.4050 ####[facility] [address] [place], [address] Neutrophils/100 WBC (Bld) 65.8 % Normal 47-70 [facility] Comment on above: Performed By: #### L 501.9520, L100.0100, L500.4050 ####[facility] [address] [place], [address] Nucleated RBC (Bld) [#/Vol] 0 10*3/uL Normal 0-5 [facility] Comment on above: Performed By: #### L 501.9520, L100.0100, L500.4050 ####[facility] [address] [place], [address] Platelet mean volume (Bld) [Entitic vol] 10.5 fL Normal 6.2-12.0 [facility] Comment on above: Performed By: #### L 501.9520, L100.0100, L500.4050 ####[facility] [address] [place], [address] Platelets (Bld) [#/Vol] 395 10*3/uL Normal 150-450 [facility] Comment on above: Performed By: #### L 501.9520, L100.0100, L500.4050 ####[facility] [address] [place], [address] RBC (Bld) [#/Vol] 3.98 10*6/uL Low 4.2-5.4 [facility] Comment on above: Performed By: #### L 501.9520, L100.0100, L500.4050 ####[facility] [address] [place], [address] RDW SD 49.5 fl High 35.1-43.9 [facility] Comment on above: Performed By: #### L 501.9520, L100.0100, L500.4050 ####[facility] [address] [place], [address] WBC (Bld) [#/Vol] 5.8 10*3/uL Normal 4.4-11.0 [facility] Comment on above: Performed By: #### L 501.9520, L100.0100, L500.4050 ####[facility] [address] [place], [address] Carbon dioxide, total [Moles /volume] in Central venous bloodOrdered By: Rachna Acosat on 06-24-2024 CO2 [Moles/Vol] 20.4 mmol/L Low 21.0-32.0 [facility] Chest PA and Lateralon 06-24 Chest PA and Lateral [facility] Imaging Services [address] [place] [address] Chest PA and Lateral MR#: [id number] Acct: [id number] Name: CRISELDA STORM Rep #: [id number] : 1945 F 79 From: John Berrios i, MD PCP: Dr. Rachna Acosta DO Status: REG CLI Study: Chest PA and Lateral Date of Exam: 06/24/24 Exam# [id number] Ordering Dr: Rachna Acosta DO PROCEDURE: CHEST [...] can not be ruled out. Reading Location: [id number] CC: Dr. Rachna Acosta DO Physician Assistant Certified: Signed Normal [facility] Chloride assayOrdered By: Michelle Acosta on 06-24-2024 Chloride [Moles/Vol] 98 mmol/L 98-108 [facility] Comprehensive Metabolic Prof ilon 06-24-2024 Albumin [Mass/Vol] 3.8 g/dL Normal 3.4-4.8 [facility] Comment on above: Performed By: #### L 501.9520, L100.0100, L500.4050 ####[facility] [address] [place], [address] Albumin/Globulin [Mass ratio] 1.2 {ratio} Normal 0.9-2.4 [facility] Comment on above: Performed By: #### L 501.9520, L100.0100, L500.4050 ####[facility] [address] [place], [address] ALK PHOS 144 U/L High 35-104 [facility] Comment on above: Performed By: #### L 501.9520, L100.0100, L500.4050 ####[facility] [address] [place], [address] ALT [Catalytic activity/Vol] 7 U/L Normal <=34 [facility] Comment on above: Performed By: #### L 501.9520, L100.0100, L500.4050 ####[facility] [address] [place], [address] AST [Catalytic activity/Vol] 16 U/L Normal <=31 [facility] Comment on above: Performed By: #### L 501.9520, L100.0100, L500.4050 ####[facility] [address] [place], [address] Bilirubin [Mass/Vol] 0.44 mg/dL Normal 0.00-1.30 [facility] Comment on above: Performed By: #### L 501.9520, L100.0100, L500.4050 ####[facility] [address] [place], [address] BUN/CRE 19.5 RATIO Normal 10-20 [facility] Comment on above: Performed By: #### L 501.9520, L100.0100, L500.4050 ####[facility] [address] [place], [address] Calcium [Mass/Vol] 9.2 mg/dL Normal 7.6-11.0 [facility] Comment on above: Performed By: #### L 501.9520, L100.0100, L500.4050 ####[facility] [address] [place], [address] Chloride [Moles/Vol] 98 mmol/L Normal 98-108 [facility] Comment on above: Performed By: #### L 501.9520, L100.0100, L500.4050 ####[facility] [address] [place], [address] CO2 [Moles/Vol] 20.4 mmol/L Low 21.0-32.0 [facility] Comment on above: Performed By: #### L 501.9520, L100.0100, L500.4050 ####[facility] [address] [place], [address] Creatinine [Mass/Vol] 0.71 mg/dL Normal 0.70-1.20 [facility] Comment on above: Performed By: #### L 501.9520, L100.0100, L500.4050 ####[facility] [address] [place], [address] GAP 17 High 5-15 [facility] Comment on above: Performed By: #### L 501.9520, L100.0100, L500.4050 ####[facility] [address] [place], [address] GFR/1.73 sq M.predicted among non-blacks MDRD (S/P/Bld) [Vol rate/Area] 87 mL/min/{1.73_m2} Normal >60 [facility] Comment on above: Result Comment: mL/m in/1.73m2 CKD-EPI Creatinine Equation (2020) Performed By: #### L 501.9520, L100.0100, L500.4050 ####[facility] [address] [place], [address] Globulin (S) [Mass/Vol] 3.2 g/dL Normal 2.2-4.2 [facility] Comment on above: Performed By: #### L 501.9520, L100.0100, L500.4050 ####[facility] [address] [place], [address] Glucose [Mass/Vol] 102 mg/dL High 70-99 [facility] Comment on above: Performed By: #### L 501.9520, L100.0100, L500.4050 ####[facility] [address] [place], [address] Potassium [Moles/Vol] 4.3 mmol/L Normal 3.3-5.1 [facility] Comment on above: Performed By: #### L 501.9520, L100.0100, L500.4050 ####[facility] [address] [place], [address] Sodium [Moles/Vol] 135 mmol/L Normal 133-145 [facility] Comment on above: Performed By: #### L 501.9520, L100.0100, L500.4050 ####[facility] [address] [place], [address] T PROT 7.0 g/dL Normal 5.9-8.4 [facility] Comment on above: Performed By: #### L 501.9520, L100.0100, L500.4050 ####[facility] [address] [place], [address] Urea nitrogen [Mass/Vol] 14 mg/dL Normal 4-19 [facility] Comment on above: Performed By: #### L 501.9520, L100.0100, L500.4050 ####[facility] [address] [place], [address] Eosinophil percentageOrdered By: Rachna Acosta on 06-24-2024 Eosinophils/100 WBC (Bld) 2.9 % 0-5 [facility] Erythrocyte distribution wid th ratioOrdered By: Rachna Acosta on 06-24-2024 Erythrocyte distribution width (RBC) [Ratio] 14.3 % 11.6-14.6 [facility] Erythrocyte distribution wid th standard deviationOrdered By: Rachna Acosta on 06-24-2024 Erythrocyte distribution width (RBC) [Ratio] 49.5 fl High 35.1-43.9 [facility] Glomerular filtration rate ( GFR) estimation/1.73 sq m using serum, plasma, or whole bOrdered By: Rachna Acosta on 06-24-2024 GFR/1.73 sq M.predicted among non-blacks MDRD (S/P/Bld) [Vol rate/Area] 87 mL/min/{1.73_m2} >60 [facility] Comment on above: mL/min/1.73m2 CKD-EP I Creatinine Equation (2020) Hematocrit Auto (Bld) [Volum e fraction]Ordered By: Rachna Acosta on 06-24-2024 Hematocrit (Bld) [Volume fraction] 37.8 % 37-47 [facility] Hemoglobin measurementOrdere d By: Rachna Acosta on 06-24-2024 Hemoglobin (Bld) [Mass/Vol] 12.3 g/dL 12.0-15.0 [facility] Immature granulocytes/100 WB C Auto (Bld)Ordered By: Rachna Acosta on 06-24-2024 Immature granulocytes/100 WBC (Bld) 0.300 % 0.0-0.9 [facility] Comment on above: IG% - Immature Granu locytes (promyelocytes, myelocytes and metamyelocytes) > 1% indicates that a LEFT SHIFT is Present. Laboratory - Chemistry and C hemistry - challengeOrdered By: Rachna Acosta on 06-24-2024 AST [Catalytic activity/Vol] 16 U/L <32 [facility] MCV (mean corpuscular volume ) determinationOrdered By: Rachna Acosta on 06-24-2024 MCV (RBC) [Entitic vol] 95.0 fL 81-99 [facility] Mean corpuscular hemoglobin (MCH) determinationOrdered By: Rachna Acosta on 06-24-2024 MCH (RBC) [Entitic mass] 30.9 pg 27.0-32.0 [facility] Mean corpuscular hemoglobin concentration (MCHC) determinationOrdered By: Rachna Acosta on 06-24-2024 MCHC (RBC) [Mass/Vol] 32.5 g/dL 32-36 [facility] Mean platelet volume determi nationOrdered By: Rachna Acosta on 06-24-2024 Platelet mean volume (Bld) [Entitic vol] 10.5 fL 6.2-12.0 [facility] Monocyte percentageOrdered B y: Rachna Acosta on 06-24-2024 Monocytes/100 WBC (Bld) 12.5 % High 0-10 [facility] Neutrophil percentageOrdered By: Rachna Acosta on 06-24-2024 Neutrophils/100 WBC (Bld) 65.8 % 47-70 [facility] Nucleated red blood cell per centageOrdered By: Rachna Acosta on 06-24-2024 Nucleated RBC/100 WBC (Bld) [Ratio] 0 % 0-5 [facility] Platelet countOrdered By: Michelle Acosta on 06-24-2024 Platelets (Bld) [#/Vol] 395 10*3/uL 150-450 [facility] Potassium measurement (mass/ volume)Ordered By: Rachna Acosta on 06-24-2024 Potassium (Unsp spec) [Mass/Vol] 4.3 mmol/L 3.3-5.1 [facility] RBC Auto (Bld) [#/Vol]Ordere d By: Rachna Acosta on 06-24-2024 RBC (Bld) [#/Vol] 3.98 10*6/uL Low 4.2-5.4 [facility] Serum creatinine measurement (mass/volume)Ordered By: Rachna Acosta on 06-24-2024 Creatinine [Mass/Vol] 0.71 mg/dL 0.70-1.20 [facility] Serum globulin measurementOr dered By: Rachna Acosta on 06-24-2024 Globulin (S) [Mass/Vol] 3.2 g/dL 2.2-4.2 [facility] Serum glucose measurement (m ass/volume)Ordered By: Rachna Acosta on 06-24-2024 Glucose [Mass/Vol] 102 mg/dL High 70-99 [facility] Serum or plasma alanine carlos otransferase (ALT) measurementOrdered By: Rachna Acosta on 06-24-2024 ALT [Catalytic activity/Vol] 7 U/L <35 [facility] Serum or plasma albumin ollie urement (mass/volume)Ordered By: Rachna Acosta on 06-24-2024 Albumin [Mass/Vol] 3.8 g/dL 3.4-4.8 [facility] Serum or plasma albumin/glob ulin mass ratioOrdered By: Rachna Acosta on 06-24-2024 Albumin/Globulin [Mass ratio] 1.2 {ratio} 0.9-2.4 [facility] Serum or plasma alkaline nneka sphatase measurementOrdered By: Rachna Acosta on 06-24-2024 ALP [Catalytic activity/Vol] 144 U/L High 35-104 [facility] Serum or plasma calcium ollie urement (mass/volume)Ordered By: Rachna Acosta on 06-24-2024 Calcium [Mass/Vol] 9.2 mg/dL 7.6-11.0 [facility] Serum or plasma urea nitroge n measurement (mass/volume)Ordered By: Rachna Acosta on 06-24-2024 Urea nitrogen [Mass/Vol] 14 mg/dL 4-19 [facility] Sodium levelOrdered By: Rachna Acosta on 06-24-2024 Sodium [Moles/Vol] 135 mmol/L 133-145 [facility] TSH DL <= 0.005 mIU/L QnOrde red By: Rachna Acosta on 06-24-2024 TSH Qn 4.800 uIU/mL High 0.300-4.200 [facility] Thyroid Stim Hormone (TSH)on 06-24-2024 TSH 4.800 uIU/mL High 0.300-4.200 [facility] Comment on above: Performed By: #### L 501.9520, L100.0100, L500.4050 ####[facility] [address] [place], [address] Total proteinOrdered By: Ashley Acosta on 06-24-2024 Protein [Mass/Vol] 7.0 g/dL 5.9-8.4 [facility] White blood cell (WBC) count Ordered By: Rachna Acosta on 06-24-2024 WBC (Bld) [#/Vol] 5.8 10*3/uL 4.4-11.0 [facility] Body fluid lactate dehydroge nase measurement (enzymatic activity/volume) by pyruvateOrdered By: Rachna Acosta on 06-03-2024 LDH Pyruvate to lactate reaction (Body fld) [Catalytic activity/Vol] 74 Units/L Not Establ. [facility] Body fluid protein measureme nt (mass/volume)Ordered By: Rachna Acosta on 06-03-2024 Protein (Body fld) [Mass/Vol] 4.2 g/dL Not Establ. [facility] Chest Insp/Exp 2 Viewon 05-19 Chest Insp/Exp 2 View [facility] Imaging Services [address] [place] [address] Chest Insp/Exp 2 View MR#: [id number] Acct: [id number] Name: CRISELDA STORM Rep #: [id number] : 1945 F 79 From: Sean kaplan MD PCP: Dr. Rachna Acosta DO Status: REG CLI Study: Chest Insp/Exp 2 View Date of Exam: 06/03/24 Exam# [id number] Ordering Dr: Sean Pandya EXAM: Frontal inspiration [...] immediate post left thoracentesis examination. Reading Location: [place] [address] CC: Dr. Sean Pandya MD; Dr. Rachna Acosta DO Physician Assistant Certified: Signed Normal [facility] Cytology report of Body flui d Cyto stainOrdered By: Rachna Acosta on 06-03-2024 Cytology report Cyto stain Doc (Body fld) SEE PATHOLOGY REPORT [facility] Comment on above: Specimen submitted t o Anatomical Pathology Department for testing. Cytology, Body Fluid / CSFon 06-03-2024 CYTOLOGY,BF/CSF SEE PATHOLOGY REPORT Normal [facility] Comment on above: Order Comment: LT TH ORA PAWN SHOP KEEPER PETER Result Comment: Spec imen submitted to Anatomical Pathology Department for testing. Performed By: #### L 350.1000, L504.0250, L503.0100, L503.0300 ####[facility] [address] [place], [address] Glucose, Body Fluidon 2024 GLUC, BODY FLD 92 mg/dL Normal Not Establ. [facility] Comment on above: Order Comment: LT TH ORA PAWN SHOP KEEPER BORDNER Performed By: #### L 350.1000, L504.0250, L503.0100, L503.0300 ####[facility] [address] [place], [address] LDH,Body Fluidon 06-03-2024 LDH,BF 74 Units/L Normal Not Establ. [facility] Comment on above: Order Comment: LT TH ORA PAWN SHOP KEEPER BORDNER Performed By: #### L 350.1000, L504.0250, L503.0100, L503.0300 ####[facility] [address] [place], [address] Operative Reporton 5 Operative Report [facility] Medical Records Department [address] [place] [address] Operative Report 06/03/24 0904 MR#: [id number] Acct: [id number] Name: CRISELDA STORM Rep #: [id number] : 1945 79 From: Amanda BURNETT PCP: Dr. Rachna Acosta, DO Status:REG CLI Location: US Problems Associated Problem List Diagnoses (1) Pleural effusion: (2) Shortness of breath: Multi Select Codes Radiology Radiology US Procedures: 60042 Thoracentesis Operative Report (Standard) Operative Information Date of Procedure: 06/03/24 Pre-Operative Diagnosis: Pleural effusion Post-Operative Diagnosis: Pleural effusion Surgery/Procedure Performed: Ultrasound-guided thoracentesis soft work wrapper examiner: No Type of Anesthesia: Local Procedure Start [...] local anesthesia. Under ultrasound guidance, a 5- Afghan thoracentesis needle/catheter system was advanced into the [...] LEX [place]; Dr. Rachna Acosta, Signed Normal [facility] Protein, Body Fluidon 2024 Protein [Mass/Vol] 4.2 g/dL Normal Not Establ. [facility] Comment on above: Order Comment: RICARDA GREEN Performed By: #### L 350.1000, L504.0250, L503.0100, L503.0300 ####[facility] [address] [place], [address] Special Stain Group IIon Special Stain Group II ---- -------- Patient Age/Sex Location Account Attending Physician -------- CRISELDA STORM 79/F [id number] Dr. Rachna Acosta DO -------- Specimen: [id number] Received: 06/03/24 Status: RONDA Lua Num: [id number] Spec Type: Fluid Subm Dr: DO BRENDA [...] and cell block preparation. Mr 06/03/2024 CPT: 19084 Signed (signature on file) Dr. Caterina Varela DO 06/05/24 1424 -------- Normal [facility] Comment on above: Performed By: #### P SSII ####[facility] [address] [facility] [place], [place], [id number] 12 Lead EKGon 05-31-2024 12 Lead EKG [facility] Cardiovascular Services [address] [place] [address] 12 Lead EKG 05/31/24 1620 MR#: [id number] Acct: [id number] Name: CRISELDA STORM Rep #: [id number] : 1945 79 From: John Ledezma MD [...] abnormality Abnormal ECG Confirmed by John Ledezma ([id number]), tape editor KAVEH MARROQUIN ([id number]) on 06/01/2024 1:18:32 PM Referred By: NABOR/JEY Confirmed By: John Ledezma 06/01/24 1318 Date John Ledezma MD CC: Dr. Omar Greene, ; Dr. Rachna Acosta DO Signed Normal [facility] Absolute lymphocyte countOrd ered By: Omar Greene on 05-31-2024 Lymphocytes Auto (Unsp spec) [#/Vol] 1.01 10*3/uL 0.83-4.51 [facility] Absolute neutrophil countOrd ered By: Omar Greene on 05-31-2024 Neutrophils (Bld) [#/Vol] 3.6 10*3/uL 2.0-7.7 [facility] Anion gap in Serum or Plasma Ordered By: Omar Greene on 05-31-2024 Anion gap [Moles/Vol] 11 mmol/L 5-15 [facility] Automated lymphocyte count a s percentage of total leukocytesOrdered By: Omar Greene on 05-31-2024 Lymphocytes/100 WBC Auto (Unsp spec) 17.9 % Low 19-41 [facility] BUN/creatinine ratioOrdered By: Omar Greene on 05-31-2024 Urea nitrogen/Creatinine [Mass ratio] 23.2 mg/mg High 10-20 [facility] Basic Metabolic Profile (BMP )on 05-31-2024 BUN/CRE 23.2 RATIO High - [facility] Comment on above: Performed By: #### L 100.0100, L500.2500, L501.4021 ####[facility] [address] [place], [address] Calcium [Mass/Vol] 9.6 mg/dL Normal 7.6-11.0 [facility] Comment on above: Performed By: #### L 100.0100, L500.2500, L501.4021 ####[facility] [address] [place], [address] Chloride [Moles/Vol] 95 mmol/L Low 98-108 [facility] Comment on above: Performed By: #### L 100.0100, L500.2500, L501.4021 ####[facility] [address] [place], [address] CO2 [Moles/Vol] 26.3 mmol/L Normal 21.0-32.0 [facility] Comment on above: Performed By: #### L 100.0100, L500.2500, L501.4021 ####[facility] [address] [place], [address] Creatinine [Mass/Vol] 0.73 mg/dL Normal 0.70-1.20 [facility] Comment on above: Performed By: #### L 100.0100, L500.2500, L501.4021 ####[facility] [address] [place], [address] ECRCL 50.05 ml/min Normal 50-250 [facility] Comment on above: Performed By: #### L 100.0100, L500.2500, L501.4021 ####[facility] [address] [place], [address] GAP 11 Normal 5-15 [facility] Comment on above: Performed By: #### L 100.0100, L500.2500, L501.4021 ####[facility] [address] [place], [address] GFR/1.73 sq M.predicted among non-blacks MDRD (S/P/Bld) [Vol rate/Area] 85 mL/min/{1.73_m2} Normal >60 [facility] Comment on above: Result Comment: mL/m in/1.73m2 CKD-EPI Creatinine Equation (2020) Performed By: #### L 100.0100, L500.2500, L501.4021 ####[facility] [address] [place], [address] Glucose [Mass/Vol] 118 mg/dL High 70-99 [facility] Comment on above: Performed By: #### L 100.0100, L500.2500, L501.4021 ####[facility] [address] [place], [address] Potassium [Moles/Vol] 3.9 mmol/L Normal 3.3-5.1 [facility] Comment on above: Performed By: #### L 100.0100, L500.2500, L501.4021 ####[facility] [address] [place], [address] Sodium [Moles/Vol] 132 mmol/L Low 133-145 [facility] Comment on above: Performed By: #### L 100.0100, L500.2500, L501.4021 ####[facility] [address] [place], [address] Urea nitrogen [Mass/Vol] 17 mg/dL Normal 4-19 [facility] Comment on above: Performed By: #### L 100.0100, L500.2500, L501.4021 ####[facility] [address] [place], [address] Basophil percentageOrdered B y: Omar Greene on 05-31-2024 Basophils/100 WBC (Bld) 1.8 % High 0-1 [facility] CBC W/Diff, Automatedon 05-19 Absolute Lymph 1.01 X10 3/uL Normal 0.83-4.51 [facility] Comment on above: Performed By: #### L 100.0100, L500.2500, L501.4021 ####[facility] [address] [place], [address] Absolute Neut 3.6 X10 3/uL Normal 2.0-7.7 [facility] Comment on above: Performed By: #### L 100.0100, L500.2500, L501.4021 ####[facility] [address] [place], [address] Basophils/100 WBC (Bld) 1.8 % High 0-1 [facility] Comment on above: Performed By: #### L 100.0100, L500.2500, L501.4021 ####[facility] [address] [place], [address] Eosinophils/100 WBC (Bld) 2.3 % Normal 0-5 [facility] Comment on above: Performed By: #### L 100.0100, L500.2500, L501.4021 ####[facility] [address] [place], [address] Erythrocyte distribution width (RBC) [Ratio] 13.8 % Normal 11.6-14.6 [facility] Comment on above: Performed By: #### L 100.0100, L500.2500, L501.4021 ####[facility] [address] [place], [address] Hematocrit (Bld) [Volume fraction] 42.1 % Normal 37-47 [facility] Comment on above: Performed By: #### L 100.0100, L500.2500, L501.4021 ####[facility] [address] [place], [address] Hemoglobin (Bld) [Mass/Vol] 13.6 g/dL Normal 12.0-15.0 [facility] Comment on above: Performed By: #### L 100.0100, L500.2500, L501.4021 ####[facility] [address] [place], [address] IG% 0.500 Normal 0.0-0.9 [facility] Comment on above: Result Comment: IG% - Immature Granulocytes (promyelocytes, myelocytes and metamyelocytes) > 1% indicates that a LEFT SHIFT is Present. Performed By: #### L 100.0100, L500.2500, L501.4021 ####[facility] [address] [place], [address] Lymphocytes/100 WBC (Bld) 17.9 % Low 19-41 [facility] Comment on above: Performed By: #### L 100.0100, L500.2500, L501.4021 ####[facility] [address] [place], [address] MCH (RBC) [Entitic mass] 30.6 pg Normal 27.0-32.0 [facility] Comment on above: Performed By: #### L 100.0100, L500.2500, L501.4021 ####[facility] [address] [place], [address] MCHC (RBC) [Mass/Vol] 32.3 g/dL Normal 32-36 [facility] Comment on above: Performed By: #### L 100.0100, L500.2500, L501.4021 ####[facility] [address] [place], [address] MCV (RBC) [Entitic vol] 94.8 fL Normal 81-99 [facility] Comment on above: Performed By: #### L 100.0100, L500.2500, L501.4021 ####[facility] [address] [place], [address] Monocytes/100 WBC (Bld) 13.1 % High 0-10 [facility] Comment on above: Performed By: #### L 100.0100, L500.2500, L501.4021 ####[facility] [address] [place], [address] Neutrophils/100 WBC (Bld) 64.4 % Normal 47-70 [facility] Comment on above: Performed By: #### L 100.0100, L500.2500, L501.4021 ####[facility] [address] [place], [address] Nucleated RBC (Bld) [#/Vol] 0 10*3/uL Normal 0-5 [facility] Comment on above: Performed By: #### L 100.0100, L500.2500, L501.4021 ####[facility] [address] [place], [address] Platelet mean volume (Bld) [Entitic vol] 10.3 fL Normal 6.2-12.0 [facility] Comment on above: Performed By: #### L 100.0100, L500.2500, L501.4021 ####[facility] [address] [place], [address] Platelets (Bld) [#/Vol] 438 10*3/uL Normal 150-450 [facility] Comment on above: Performed By: #### L 100.0100, L500.2500, L501.4021 ####[facility] [address] [place], [address] RBC (Bld) [#/Vol] 4.44 10*6/uL Normal 4.2-5.4 [facility] Comment on above: Performed By: #### L 100.0100, L500.2500, L501.4021 ####[facility] [address] [place], [address] RDW SD 48.1 fl High 35.1-43.9 [facility] Comment on above: Performed By: #### L 100.0100, L500.2500, L501.4021 ####[facility] [address] [place], [address] WBC (Bld) [#/Vol] 5.6 10*3/uL Normal 4.4-11.0 [facility] Comment on above: Performed By: #### L 100.0100, L500.2500, L501.4021 ####[facility] [address] [place], [address] Carbon dioxide, total [Moles /volume] in Central venous bloodOrdered By: Omar Greene on 05-31-2024 CO2 [Moles/Vol] 26.3 mmol/L 21.0-32.0 [facility] Chest PA and Lateralon 05-31 Chest PA and Lateral [facility] Imaging Services [address] [place] [address] Chest PA and Lateral MR#: [id number] Acct: [id number] Name: CRISELDA STORM Rep #: [id number] : 1945 F 79 From: Migel Ribeiro PCP: Dr. Rachna Acosta DO Status: REG ER Study: Chest PA and Lateral Date of Exam: 05/31/24 Exam# [id number] Ordering Dr: Omar Greene DO PROCEDURE: CHEST [...] Omar Greene DO; Dr. Rachna Acosta DO Physician Assistant Certified: Signed Normal [facility] Chloride assayOrdered By: Spike Greene on 05-31-2024 Chloride [Moles/Vol] 95 mmol/L Low 98-108 [facility] Emergency Department Summary on 05-31-2024 Emergency Department Summary [facility] Medical Records Department [address] [place] [address] Emergency Department Summary 05/31/24 MR#: [id number] Acct: [id number] Name: CRISELDA STORM Rep #: [id number] : 1945 79 From: Omar Greene DO [...] Eliquis. She has not missed any doses. [facility] Medical History Neuropathy Hyperlipidemia Vitamin D deficiency [...] Rate 18 (more content not included)... Normal [facility] Eosinophil percentageOrdered By: Omar Greene on 05-31-2024 Eosinophils/100 WBC (Bld) 2.3 % 0-5 [facility] Erythrocyte distribution wid th (RBC) [Ratio]Ordered By: Omar Greene on 05-31-2024 Erythrocyte distribution width (RBC) [Entitic vol] 48.1 fL High 35.1-43.9 [facility] Erythrocyte distribution wid th ratioOrdered By: Omar Greene on 05-31-2024 Erythrocyte distribution width (RBC) [Ratio] 13.8 % 11.6-14.6 [facility] Erythrocyte distribution wid th standard deviationOrdered By: Omar Greene on 05-31-2024 Erythrocyte distribution width (RBC) [Ratio] 48.1 fl High 35.1-43.9 [facility] Estimation of creatinine kavita aranceOrdered By: Omar Greene on 05-31-2024 Estimated Creatinine Clearance Calc 50.05 ml/min 50-250 [facility] GFR/1.73 sq M.predicted surinder g non-blacks MDRD (S/P/Bld) [Vol rate/Area]Ordered By: Omar Greene on 05-31-2024 Estimated GFR (MDRD) Non-Af Amer 85 >60 [facility] Comment on above: mL/min/1.73m2 CKD-EP I Creatinine Equation (2020) Glomerular filtration rate ( GFR) estimation/1.73 sq m using serum, plasma, or whole bOrdered By: Omar Greene on 05-31-2024 GFR/1.73 sq M.predicted among non-blacks MDRD (S/P/Bld) [Vol rate/Area] 85 mL/min/{1.73_m2} >60 [facility] Comment on above: mL/min/1.73m2 CKD-EP I Creatinine Equation (2020) Hematocrit Auto (Bld) [Volum e fraction]Ordered By: Omar Greene on 05-31-2024 Hematocrit (Bld) [Volume fraction] 42.1 % 37-47 [facility] Hemoglobin measurementOrdere d By: Omar Greene on 05-31-2024 Hemoglobin (Bld) [Mass/Vol] 13.6 g/dL 12.0-15.0 [facility] Immature granulocytes/100 WB C Auto (Bld)Ordered By: Omar Greene on 05-31-2024 Immature granulocytes/100 WBC (Bld) 0.500 % 0.0-0.9 [facility] Comment on above: IG% - Immature Granu locytes (promyelocytes, myelocytes and metamyelocytes) > 1% indicates that a LEFT SHIFT is Present. L501.4021on 05-31-2024 Trop T High Sen 14 ng/L Normal <=14 [facility] Comment on above: Performed By: #### L 100.0100, L500.2500, L501.4021 ####[facility] [address] [place], [address] Lymphocytes Auto (Unsp spec) [#/Vol]Ordered By: Omar Greene on 05-31-2024 Lymphocytes (Bld) [#/Vol] 1.01 10*3/uL 0.83-4.51 [facility] Lymphocytes/100 WBC Auto (Un sp spec)Ordered By: Omar Greene on 05-31-2024 Lymphocytes/100 WBC (Bld) 17.9 % Low 19-41 [facility] MCV (mean corpuscular volume ) determinationOrdered By: Omar Greene on 05-31-2024 MCV (RBC) [Entitic vol] 94.8 fL 81-99 [facility] Mean corpuscular hemoglobin (MCH) determinationOrdered By: Omar Greene on 05-31-2024 MCH (RBC) [Entitic mass] 30.6 pg 27.0-32.0 [facility] Mean corpuscular hemoglobin concentration (MCHC) determinationOrdered By: Omar Greene on 05-31-2024 MCHC (RBC) [Mass/Vol] 32.3 g/dL 32-36 [facility] Mean platelet volume determi nationOrdered By: Omar Greene on 05-31-2024 Platelet mean volume (Bld) [Entitic vol] 10.3 fL 6.2-12.0 [facility] Monocyte percentageOrdered B y: Omar Greene on 05-31-2024 Monocytes/100 WBC (Bld) 13.1 % High 0-10 [facility] Neutrophil percentageOrdered By: Omar Greene on 05-31-2024 Neutrophils/100 WBC (Bld) 64.4 % 47-70 [facility] Nucleated red blood cell per centageOrdered By: Omar Greene on 05-31-2024 Nucleated RBC/100 WBC (Bld) [Ratio] 0 % 0-5 [facility] Platelet countOrdered By: Spike Greene on 05-31-2024 Platelets (Bld) [#/Vol] 438 10*3/uL 150-450 [facility] Potassium (Unsp spec) [Mass/ Vol]Ordered By: Omar Greene on 05-31-2024 Potassium [Moles/Vol] 3.9 mmol/L 3.3-5.1 [facility] Potassium measurement (mass/ volume)Ordered By: Omar Greene on 05-31-2024 Potassium (Unsp spec) [Mass/Vol] 3.9 mmol/L 3.3-5.1 [facility] RBC Auto (Bld) [#/Vol]Ordere d By: Omar Greene on 05-31-2024 RBC (Bld) [#/Vol] 4.44 10*6/uL 4.2-5.4 [facility] Serum creatinine measurement (mass/volume)Ordered By: Omar Greene on 05-31-2024 Creatinine [Mass/Vol] 0.73 mg/dL 0.70-1.20 [facility] Serum glucose measurement (m ass/volume)Ordered By: Omar Greene on 05-31-2024 Glucose [Mass/Vol] 118 mg/dL High 70-99 [facility] Serum or plasma calcium ollie urement (mass/volume)Ordered By: Omar Greene on 05-31-2024 Calcium [Mass/Vol] 9.6 mg/dL 7.6-11.0 [facility] Serum or plasma urea nitroge n measurement (mass/volume)Ordered By: Omar Greene on 05-31-2024 Urea nitrogen [Mass/Vol] 17 mg/dL 4-19 [facility] Sodium levelOrdered By: Miguelangel Greene on 05-31-2024 Sodium [Moles/Vol] 132 mmol/L Low 133-145 [facility] Troponin T.cardiac High sens itivity method [Mass/Vol]Ordered By: Omar Greene on 05-31-2024 Troponin T High Sensitivity 14 ng/L <14 [facility] Troponin T.cardiac [Mass/vol ume] in Serum or Plasma by High sensitivity methodOrdered By: Omar Greene on 05-31-2024 Troponin T.cardiac High sensitivity method [Mass/Vol] 14 ng/L <14 [facility] White blood cell (WBC) count Ordered By: Omar Greene on 05-31-2024 WBC (Bld) [#/Vol] 5.6 10*3/uL 4.4-11.0 [facility] ALANNAH SCREENING W TOMOon 04-30 ALANNAH SCREENING W UMA * * *Final Report* * * DATE OF EXAM: Apr 30 2024 11:36AM [facility] 0582 - ALANNAH SCREENING W UMA / PROCEDURE REASON: SCREENING * * * * Physician Interpretation * * * * RESULT: [address] [place] [address] #[id number] - ALANNAH SCREENING W UMA HISTORY: 79 [...] Ani Keenan M.D. Electronically signed on: 05/01/2024 Physician Assistant Certified: KENDELL Transcribe Date/Time: Apr 30 2024 11:22A Dictated by: ANI KEENAN MD This examination was interpreted and the report reviewed and electronically signed by: ANI KEENAN MD on May 01 2024 12:58PM EST [id number] Normal [facility] Gastroenterology Visit Repor ton 03-26-2024 Gastroenterology Visit Report [facility] Gastroenterology [address] [place] [address] OFFICE VISIT Date of Service: 03/26/24 MR#: [id number] Acct: [id number] Name: CRISELDA STORM Rep #: [id number] : 1945 Provider: TIM Robert Age/Sex: 78/F Location: [facility] Status: Signed Intake Vital Signs 03/06/24 08:32 Height 5 ft 4 in Intake Visit Reasons: Follow up to [place] request Chief Complaint: abnormal finding on CT [employer]ist Required: No Accompanied by: Daughter Is patient [...] Denies bloody stools, abdominal pain, and n/v/c/d. [facility] Medical History Neuropathy Hyperlipidemia Vitamin D [...] Appearance: average body habitus and well nourished [facility] Head: normal to inspection Ears: hearing [...] of c.dif (more content not included)... Normal [facility] Chest PA and Lateralon 03-23 Chest PA and Lateral [facility] Imaging Services [address] [place] [address] Chest PA and Lateral MR#: [id number] Acct: [id number] Name: CRISELDA STORM Rep #: [id number] : 1945 F 78 From: José Miguel Noland MD PCP: Dr. Rachna Acosta, DO Status: REG CLI Study: Chest PA and Lateral Date of Exam: 03/23/24 Exam# [id number] Ordering Dr: Hazel Denson EXAM: XR Chest, [...] Superimposed pneumonia cannot be excluded. Reading Location: [facility] CC: Dr. Rachna Acosta DO; TIM Yu Physician Assistant Certified: Signed Normal [facility] Echo Completeon 03-19-2024 Echo Complete [facility] Cardiovascular Services [address] [place] [address] Echo Complete 03/19/24 1313 MR#: [id number] Acct: [id number] Name: CRISELDA STORM Rep #: [id number] : 1945 78 From: Marcelo Berry MD Attending Dr: TIM Yu Status: REG CLI Ordering Dr: Hazel Denson Date: 02/20 Location: [facility] Sex: F C Admitted: Reason For Study: [...] sec Doppler Measurements Calculations MV E max arsh: 86.0 cm/sec Lat Peak E' Arsh: 8.9 [...] Date Dictated: 03/19/24 1313 Date Transcribed: 03/19/241514 Physician Assistant Certified: Signed Normal [facility] Absolute lymphocyte countOrd ered By: Rachna Francogabbi on 03-17-2024 Lymphocytes Auto (Unsp spec) [#/Vol] 0.81 10*3/uL Low 0.83-4.51 [facility] Absolute neutrophil countOrd ered By: Rachna Acosta on 03-17-2024 Neutrophils (Bld) [#/Vol] 2.5 10*3/uL 2.0-7.7 [facility] Automated lymphocyte count a s percentage of total leukocytesOrdered By: Rachna Salvadorgabbi on 03-17-2024 Lymphocytes/100 WBC Auto (Unsp spec) 20.1 % 19-41 [facility] Basophil percentageOrdered B y: Rachna Francogabbi on 03-17-2024 Basophils/100 WBC (Bld) 1.7 % High 0-1 [facility] C-reactive protein measureme nt by high sensitivity methodOrdered By: Rachna Acosta on 03-17-2024 C-Reactive Protein Extended Range 13.30 mg/L High 0.0-3.0 [facility] Comment on above: C-Reactive Protein ( CRP) provides useful information for thediagnosis, therapy and monitoring of inflammatory processesand associated diseases. For the evaluation of Relative Riskfor Cardiovascular Disease, a High Sensitivity CRP (HSCRP)should be ordered. C-reactive protein measurement by high sensitivity method 13.30 mg/L High 0.0-3.0 [facility] Comment on above: C-Reactive Protein ( CRP) provides useful information for thediagnosis, therapy and monitoring of inflammatory processesand associated diseases. For the evaluation of Relative Riskfor Cardiovascular Disease, a High Sensitivity CRP (HSCRP)should be ordered. CBC W/Diff, Automatedon 02-19 Absolute Lymph 0.81 X10 3/uL Low 0.83-4.51 [facility] Comment on above: Performed By: #### L 100.0100, L504.2610, L101.9900, L501.6710 #### [facility] Laboratory [address] [place], [address] Absolute Neut 2.5 X10 3/uL Normal 2.0-7.7 [facility] Comment on above: Performed By: #### L 100.0100, L504.2610, L101.9900, L501.6710 #### [facility] Laboratory [address] [place], [address] Basophils/100 WBC (Bld) 1.7 % High 0-1 [facility] Comment on above: Performed By: #### L 100.0100, L504.2610, L101.9900, L501.6710 #### [facility] Laboratory [address] [place], [address] Eosinophils/100 WBC (Bld) 3.0 % Normal 0-5 [facility] Comment on above: Performed By: #### L 100.0100, L504.2610, L101.9900, L501.6710 #### [facility] Laboratory [address] [place], [address] Erythrocyte distribution width (RBC) [Ratio] 14.7 % High 11.6-14.6 [facility] Comment on above: Performed By: #### L 100.0100, L504.2610, L101.9900, L501.6710 #### [facility] [address] [place], [address] Hematocrit (Bld) [Volume fraction] 41.6 % Normal 37-47 [facility] Comment on above: Performed By: #### L 100.0100, L504.2610, L101.9900, L501.6710 #### [facility] [address] [place], [address] Hemoglobin (Bld) [Mass/Vol] 13.6 g/dL Normal 12.0-15.0 [facility] Comment on above: Performed By: #### L 100.0100, L504.2610, L101.9900, L501.6710 #### [facility] [address] [place], [address] IG% 0.200 Normal 0.0-0.9 [facility] Comment on above: Result Comment: IG% - Immature Granulocytes (promyelocytes, myelocytes and metamyelocytes) > 1% indicates that a LEFT SHIFT is Present. Performed By: #### L 100.0100, L504.2610, L101.9900, L501.6710 #### [facility] Laboratory [address] [place], [address] Lymphocytes/100 WBC (Bld) 20.1 % Normal 19-41 [facility] Comment on above: Performed By: #### L 100.0100, L504.2610, L101.9900, L501.6710 #### [facility] [address] [place], [address] MCH (RBC) [Entitic mass] 30.9 pg Normal 27.0-32.0 [facility] Comment on above: Performed By: #### L 100.0100, L504.2610, L101.9900, L501.6710 #### [facility] [address] [place], [address] MCHC (RBC) [Mass/Vol] 32.7 g/dL Normal 32-36 [facility] Comment on above: Performed By: #### L 100.0100, L504.2610, L101.9900, L501.6710 #### [facility] [address] [place], [address] MCV (RBC) [Entitic vol] 94.5 fL Normal 81-99 [facility] Comment on above: Performed By: #### L 100.0100, L504.2610, L101.9900, L501.6710 #### [facility] [address] [place], [address] Monocytes/100 WBC (Bld) 12.9 % High 0-10 [facility] Comment on above: Performed By: #### L 100.0100, L504.2610, L101.9900, L501.6710 #### [facility] [address] [place], [address] Neutrophils/100 WBC (Bld) 62.1 % Normal 47-70 [facility] Comment on above: Performed By: #### L 100.0100, L504.2610, L101.9900, L501.6710 #### [facility] [address] [place], [address] Nucleated RBC (Bld) [#/Vol] 0 10*3/uL Normal 0-5 [facility] Comment on above: Performed By: #### L 100.0100, L504.2610, L101.9900, L501.6710 #### [facility] [address] [place], [address] Platelet mean volume (Bld) [Entitic vol] 10.2 fL Normal 6.2-12.0 [facility] Comment on above: Performed By: #### L 100.0100, L504.2610, L101.9900, L501.6710 #### [facility] [address] [place], [address] Platelets (Bld) [#/Vol] 284 10*3/uL Normal 150-450 [facility] Comment on above: Performed By: #### L 100.0100, L504.2610, L101.9900, L501.6710 #### [facility] [address] [place], [address] RBC (Bld) [#/Vol] 4.40 10*6/uL Normal 4.2-5.4 [facility] Comment on above: Performed By: #### L 100.0100, L504.2610, L101.9900, L501.6710 #### [facility] [address] [place], [address] RDW SD 51.3 fl High 35.1-43.9 [facility] Comment on above: Performed By: #### L 100.0100, L504.2610, L101.9900, L501.6710 #### [facility] [address] [place], [address] WBC (Bld) [#/Vol] 4.0 10*3/uL Low 4.4-11.0 [facility] Comment on above: Performed By: #### L 100.0100, L504.2610, L101.9900, L501.6710 #### [facility] [address] [place], [address] CRPon 03-17-2024 C-REACTIVE PROT 13.30 mg/L High 0.0-3.0 [facility] Comment on above: Order Comment: 1 Result Comment: C-Re active Protein (CRP) provides useful information for the diagnosis, therapy and monitoring of inflammatory processes and associated diseases. For the evaluation of Relative Risk for Cardiovascular Disease, a High Sensitivity CRP (HSCRP) should be ordered. Performed By: #### L 100.0100, L504.2610, L101.9900, L501.6710 ####[facility] [address] [place], [address] Eosinophil percentageOrdered By: Rachna Acosta on 03-17-2024 Eosinophils/100 WBC (Bld) 3.0 % 0-5 [facility] Erythrocyte Sed Rateon 03-17 SED RATE 9 mm/hr Normal 0-30 [facility] Comment on above: Performed By: #### L 100.0100, L504.2610, L101.9900, L501.6710 #### [facility] [address] [place], [address] Erythrocyte distribution wid th (RBC) [Ratio]Ordered By: Rachna Acosta on 03-17-2024 Erythrocyte distribution width (RBC) [Entitic vol] 51.3 fL High 35.1-43.9 [facility] Erythrocyte distribution wid th ratioOrdered By: Rachna Acosta on 03-17-2024 Erythrocyte distribution width (RBC) [Ratio] 14.7 % High 11.6-14.6 [facility] Erythrocyte distribution wid th standard deviationOrdered By: Rachna Acosta on 03-17-2024 Erythrocyte distribution width (RBC) [Ratio] 51.3 fl High 35.1-43.9 [facility] Erythrocyte sedimentation ra teOrdered By: Rachna Acosta on 03-17-2024 ESR (Bld) [Velocity] 9 mm/h 0-30 [facility] Hematocrit Auto (Bld) [Volum e fraction]Ordered By: Rachna Acosta on 03-17-2024 Hematocrit (Bld) [Volume fraction] 41.6 % 37-47 [facility] Hemoglobin measurementOrdere d By: Rachna Acosta on 03-17-2024 Hemoglobin (Bld) [Mass/Vol] 13.6 g/dL 12.0-15.0 [facility] Immature granulocytes/100 WB C Auto (Bld)Ordered By: Rachna Acosta on 03-17-2024 Immature granulocytes/100 WBC (Bld) 0.200 % 0.0-0.9 [facility] Comment on above: IG% - Immature Granu locytes (promyelocytes, myelocytes and metamyelocytes) > 1% indicates that a LEFT SHIFT is Present. LDHon 03-17-2024 LDH 189 U/L Normal 84-246 [facility] Comment on above: Order Comment: 1 Performed By: #### L 100.0100, L504.2610, L101.9900, L501.6710 ####[facility] [address] [place], [address] Lactate dehydrogenase (LDH) measurementOrdered By: Rachna Acosta on 03-17-2024 LDH [Catalytic activity/Vol] 189 U/L 84-246 [facility] Liveron 03-17-2024 Liver [facility] Imaging Services [address] [place], [place] [address] Liver MR#: [id number] Acct: [id number] Name: CRISELDA STORM Rep #: [id number] : 1945 F 78 From: Juve Haque PCP: Dr. Rachna Acosta DO Status: REG CLI Study: Liver Date of Exam: 03/17/24 Exam# [id number] Ordering Dr: Rachna Acosta DO PROCEDURE: LIVER [...] 2. Right hepatic small cyst. Reading Location: [address] CC: Dr. Rachna Acosta DO Physician Assistant Certified: Signed Normal [facility] Lymphocytes Auto (Unsp spec) [#/Vol]Ordered By: Rachna Acosta on 03-17-2024 Lymphocytes (Bld) [#/Vol] 0.81 10*3/uL Low 0.83-4.51 [facility] Lymphocytes/100 WBC Auto (Un sp spec)Ordered By: Rachna Acosta on 03-17-2024 Lymphocytes/100 WBC (Bld) 20.1 % 19-41 [facility] MCV (mean corpuscular volume ) determinationOrdered By: Rachna Acosta on 03-17-2024 MCV (RBC) [Entitic vol] 94.5 fL 81-99 [facility] Mean corpuscular hemoglobin (MCH) determinationOrdered By: Rachna Acosta on 03-17-2024 MCH (RBC) [Entitic mass] 30.9 pg 27.0-32.0 [facility] Mean corpuscular hemoglobin concentration (MCHC) determinationOrdered By: Rachna Acosta on 03-17-2024 MCHC (RBC) [Mass/Vol] 32.7 g/dL 32-36 [facility] Mean platelet volume determi nationOrdered By: Rachna Acosta on 03-17-2024 Platelet mean volume (Bld) [Entitic vol] 10.2 fL 6.2-12.0 [facility] Monocyte percentageOrdered B y: Rachna Acosta on 03-17-2024 Monocytes/100 WBC (Bld) 12.9 % High 0-10 [facility] Neutrophil percentageOrdered By: Rachna Acosta on 03-17-2024 Neutrophils/100 WBC (Bld) 62.1 % 47-70 [facility] Nucleated red blood cell per centageOrdered By: Rachna Acosta on 03-17-2024 Nucleated RBC/100 WBC (Bld) [Ratio] 0 % 0-5 [facility] Platelet countOrdered By: Michelle Acosta on 03-17-2024 Platelets (Bld) [#/Vol] 284 10*3/uL 150-450 [facility] RBC Auto (Bld) [#/Vol]Ordere d By: Rachna Acosta on 03-17-2024 RBC (Bld) [#/Vol] 4.40 10*6/uL 4.2-5.4 [facility] White blood cell (WBC) count Ordered By: Rachna Acosta on 03-17-2024 WBC (Bld) [#/Vol] 4.0 10*3/uL Low 4.4-11.0 [facility] Liver Profileon 03-11-2024 Albumin [Mass/Vol] 3.4 g/dL Normal 3.2-5.0 [facility] Comment on above: Order Comment: PLEAS E ADD LIVER ORDERED FROM DR. ACOSTA. Performed By: #### L 500.2500, L500.3400 ####[facility] [address] [place], [address] ALK P 112 U/L Normal 45-117 [facility] Comment on above: Order Comment: PLEAS E ADD LIVER ORDERED FROM DR. ACOSTA. Performed By: #### L 500.2500, L500.3400 ####[facility] [address] [place], [address] ALT [Catalytic activity/Vol] 16 U/L Normal 13-56 [facility] Comment on above: Order Comment: PLEAS E ADD LIVER ORDERED FROM DR. ACOSTA. Performed By: #### L 500.2500, L500.3400 ####[facility] [address] [place], [address] AST [Catalytic activity/Vol] 16 U/L Normal 15-37 [facility] Comment on above: Order Comment: PLEAS E ADD LIVER ORDERED FROM DR. ACOSTA. Performed By: #### L 500.2500, L500.3400 ####[facility] [address] [place], [address] Bilirubin [Mass/Vol] 0.40 mg/dL Normal 0.20-1.00 [facility] Comment on above: Order Comment: PLEAS E ADD LIVER ORDERED FROM DR. ACOSTA. Result Comment: For patients on eltrombopag therapy, use of Dimension [place] TBIL is not recommended. Performed By: #### L 500.2500, L500.3400 ####[facility] [address] [place], [address] Bilirubin.direct [Mass/Vol] 0.15 mg/dL Normal 0.00-0.30 [facility] Comment on above: Order Comment: PLEAS E ADD LIVER ORDERED FROM DR. ACOSTA. Performed By: #### L 500.2500, L500.3400 ####[facility] [address] [place], [address] Globulin (S) [Mass/Vol] 3.5 g/dL Normal 2.2-4.2 [facility] Comment on above: Order Comment: PLEAS E ADD LIVER ORDERED FROM DR. ACOSTA. Performed By: #### L 500.2500, L500.3400 ####[facility] [address] [place], [address] T PROT 6.9 g/dL Normal 6.4-8.2 [facility] Comment on above: Order Comment: PLEAS E ADD LIVER ORDERED FROM DR. ACOSTA. Performed By: #### L 500.2500, L500.3400 ####[facility] [address] [place], [address] Abdomen W/WO IV Contraston 0 - Abdomen W/WO IV Contrast [facility] Imaging Services [address] [place] [address] Abdomen W/WO IV Contrast MR#: [id number] Acct: [id number] Name: CRISELDA STORM Christina Rep #: [id number] : 1945 F 78 From: Sean kaplan MD PCP: Dr. Rachna Acosta DO Status: REG CL Study: Abdomen W/WO IV Contrast Date of Exam: 5 Exam# [id number] Ordering Dr: Rachna Acosta DO [id number] STUDY: CT ABDOMEN WITH AND WITHOUT CONTRAST [...] 15:04 EST Reading Location ID and State: [address] [place] [address] , Service support , CC: Dr. Rachna Acosta, DO Physician Assistant Certified: Signed Normal [facility] Basic Metabolic Profile (BMP )on 03-09-2024 BUN/CRE 16.1 RATIO Normal 12-07 [facility] Comment on above: Performed By: #### L 500.2500, L500.3400 ####[facility] [address] [place], [address] CA,Total 9.1 mg/dL Normal 8.5-10.1 [facility] Comment on above: Performed By: #### L 500.2500, L500.3400 ####[facility] [address] [place], [address] Chloride [Moles/Vol] 100 mmol/L Normal 98-107 [facility] Comment on above: Performed By: #### L 500.2500, L500.3400 ####[facility] [address] [place], [address] CO2 [Moles/Vol] 29.0 mmol/L Normal 21.0-32.0 [facility] Comment on above: Performed By: #### L 500.2500, L500.3400 ####[facility] [address] [place], [address] Creatinine [Mass/Vol] 0.99 mg/dL Normal 0.55-1.02 [facility] Comment on above: Result Comment: The validity of the calculated GFR GFRAA in patients over 70 years has not been determined. Clinical correlation is essential. Performed By: #### L 500.2500, L500.3400 ####[facility] [address] [place], [address] EST GFR - AA 70 mL/min Normal >60 [facility] Comment on above: Result Comment: Afri can [place] GFR Calc Performed By: #### L 500.2500, L500.3400 ####[facility] [address] [place], [address] GAP 6 Normal 5-15 [facility] Comment on above: Performed By: #### L 500.2500, L500.3400 ####[facility] [address] [place], [address] GFR/1.73 sq M.predicted among non-blacks MDRD (S/P/Bld) [Vol rate/Area] 57 mL/min/{1.73_m2} Low >60 [facility] Comment on above: Result Comment: Non- GFR Calc Performed By: #### L 500.2500, L500.3400 ####[facility] [address] [place], [address] Glucose [Mass/Vol] 82 mg/dL Normal 74-106 [facility] Comment on above: Performed By: #### L 500.2500, L500.3400 ####[facility] [address] [place], [address] Potassium [Moles/Vol] 4.2 mmol/L Normal 3.5-5.1 [facility] Comment on above: Performed By: #### L 500.2500, L500.3400 ####[facility] [address] [place], [address] Sodium [Moles/Vol] 135 mmol/L Low 136-145 [facility] Comment on above: Performed By: #### L 500.2500, L500.3400 ####[facility] [address] [place], [address] Urea nitrogen [Mass/Vol] 16 mg/dL Normal 7-18 [facility] Comment on above: Performed By: #### L 500.2500, L500.3400 ####[facility] [address] [place], [address] Bilirubin directOrdered By: Hazel Dneson on 03-09-2024 Bilirubin.direct [Mass/Vol] 0.15 mg/dL 0.00-0.30 [facility] Bilirubin, totalOrdered By: Hazel Denson on 03-09-2024 Bilirubin [Mass/Vol] 0.40 mg/dL 0.20-1.00 [facility] Comment on above: For patients on eltr ombopag therapy, use of Dimension [place] TBIL is not recommended. Blood urea nitrogen (BUN)/cr eatinine ratioOrdered By: Hazel Denson on 03-09-2024 Urea nitrogen/Creatinine [Mass ratio] 16.1 mg/mg 10-20 [facility] Carbon dioxide measurementOr dered By: Hazel Denson on 03-09-2024 CO2 [Moles/Vol] 29.0 mmol/L 21.0-32.0 [facility] Chloride measurementOrdered By: Hazel Denson on 03-09-2024 Chloride [Moles/Vol] 100 mmol/L 98-107 [facility] Estimated glomerular filtrat ion rate (GFR) AmericanOrdered By: Hazel Denson on 03-09-2024 Estimated GFR (MDRD) Amer 70 mL/min >60 [facility] Comment on above: GFR Calc Glomerular filtration rate ( GFR) estimationOrdered By: Hazel Denson on 03-09-2024 Estimated GFR (MDRD) Non-Af Amer 57 mL/min Low >60 [facility] Comment on above: Non- GFR Calc GFR/1.73 sq M.predicted among non-blacks MDRD (S/P/Bld) [Vol rate/Area] 57 mL/min/{1.73_m2} Low >60 [facility] Comment on above: Non- GFR Calc Glucose measurementOrdered B y: Hazel Denson on 03-09-2024 Glucose [Mass/Vol] 82 mg/dL 74-106 [facility] Laboratory - Chemistry and C hemistry - challengeOrdered By: Hazel Denson on 03-09-2024 AST [Catalytic activity/Vol] 16 U/L 15-37 [facility] Potassium measurementOrdered By: Hazel Denson on 03-09-2024 Potassium [Moles/Vol] 4.2 mmol/L 3.5-5.1 [facility] Serum anion gap measurementO rdered By: Hazel Denson on 03-09-2024 Anion gap [Moles/Vol] 6 mmol/L 5-15 [facility] Serum globulin measurementOr dered By: Hazel Denson on 03-09-2024 Globulin (S) [Mass/Vol] 3.5 g/dL 2.2-4.2 [facility] Serum or plasma alanine carlos otransferase (ALT) measurementOrdered By: Hazel Denson on 03-09-2024 ALT [Catalytic activity/Vol] 16 U/L 13-56 [facility] Serum or plasma albumin ollie urement (mass/volume)Ordered By: Hazel Denson on 03-09-2024 Albumin [Mass/Vol] 3.4 g/dL 3.2-5.0 [facility] Serum or plasma alkaline nneka sphatase measurementOrdered By: Hazel Denson on 03-09-2024 ALP [Catalytic activity/Vol] 112 U/L 45-117 [facility] Serum or plasma calcium ollie urement (mass/volume)Ordered By: Hazel Denson on 03-09-2024 Calcium [Mass/Vol] 9.1 mg/dL 8.5-10.1 [facility] Serum or plasma creatinine m easurement (mass/volume)Ordered By: Hazel Denson on 03-09-2024 Creatinine [Mass/Vol] 0.99 mg/dL 0.55-1.02 [facility] Comment on above: The validity of the calculated GFR & GFRAA in patients over 70 years has not been determined. Clinical correlation is essential. Serum or plasma urea nitroge n measurement (mass/volume)Ordered By: Hazel eDnson on 03-09-2024 Urea nitrogen [Mass/Vol] 16 mg/dL 7-18 [facility] Sodium levelOrdered By: Ryan Denson on 03-09-2024 Sodium [Moles/Vol] 135 mmol/L Low 136-145 [facility] Total proteinOrdered By: Shen Denson on 03-09-2024 Protein [Mass/Vol] 6.9 g/dL 6.4-8.2 [facility] Cardiology Visit Reporton Cardiology Visit Report [facility] [place] [address] OFFICE VISIT Date of Service: 03/06/24 MR#: [id number] Acct: [id number] Name: CRISELDA STORM Rep #: [id number] : 1945 Provider: TIM Castro Age/Sex: 78/F Location: [facility] Status: Signed HPI HPI History of Present [...] referred to EP. She was evaluated at [facility] in 03/2023. It was recommended that [...] an echocardiogram done in March 2023 at [facility]. 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 Normal [facility] CNOVon 10-03-2023 CNOV Office Visit (CARDMN ) CRISELDA STORM ([id number]) 1945 F Date Time Provider Department 10/03/23 12:00 PM LUIS F BRAVO During your visit today, we recorded the following information about you: Pulse Blood pressure Weight Height 58/minute 98/52 51.3 kg 1.651 m Luis F Bravo APRN.CNP 10/03/2023 9:35 PM Signed [facility] [place] Maddison Carbajal Department of Cardiovascular Medicine SECTION OF CARDIAC PACING and ELECTROPHYSIOLOGY OUTPATIENT VISIT DATE October 03, 2023 OUTPATIENT VISIT TYPE EST PRIMARY CARE PHYSICIAN: Rachna Acosta [address] [place] [address] REFERRING PHYSICIAN: Bear Rodarte [address] [facility] [id number] CHIEF COMPLAINT: Post op HISTORY OF PRESENT [...] Cancer Mother Stomach, age 40's Heart Father [place] No Known Problems Sister Heart Brother [place] other (no other known family hx of [...] Wheezing or (more content not included)... Normal [facility] [id number] 10-03-2023 ECG01 Ventricular Rate : 5 3 BPM Atrial Rate : 53 BPM P-R Interval : 166 ms QRS Duration : 84 ms Q-T Interval : 346 ms QTC Calculation(Bazett) : 324 ms Calculated P Dutton : 80 degrees Calculated R Dutton : 16 degrees Calculated T Dutton : 257 degrees SINUS BRADYCARDIA NONSPECIFIC ST AND T WAVE ABNORMALITY ABNORMAL ECG Confirmed by JOHN ELLIS MD ([id number]) on 11/02/2023 5:25:43 PM NAME : CRISELDA STORM PID : [id number] : 1945 Gender : Female Race : [...] RODARTE Acquired by : BIENVENIDO MCKEON Normal [facility] ARRHYTHMIA TRANS TELE MEASUR [place] 09-16-2023 Measure [place] Interval 130 [facility] MEASURE QRS Interval 60 [facility] MEASURE QT Interval [facility] MEASURE RR INTERVAL MAX 52.49 [facility] Symptoms routine [facility] Review of transmission demonstrates sinus bradycardia NOTE [...] CARDIAC DATA AND REPORT, Scanned Documents section. [facility] ARRHYTHMIA TRANS TELE MEASUR [place] 09-06-2023 Measure [place] Interval [facility] MEASURE QRS Interval 60 [facility] MEASURE QT Interval 429 [facility] MEASURE RR INTERVAL MAX 47.86 [facility] Symptoms routine [facility] Review of transmission demonstrates sinus bradycardia with [...] CARDIAC DATA AND REPORT, Scanned Documents section. [facility] ARRHYTHMIA TRANS TELE MEASUR [place] 09-05-2023 Measure [place] Interval 130 [facility] MEASURE QRS Interval 60 [facility] ME[facility] QT Interval 379 [facility] MEASURE RR INTERVAL MAX 47.73 [facility] Symptoms routine [facility] Review of transmission demonstrates sinus bradycardia with [...] CARDIAC DATA AND REPORT, Scanned Documents section. [facility] Measure [place] Interval 130 [facility] MEASURE QRS [...] CARDIAC DATA AND REPORT, Scanned Documents section. [facility] ARRHYTHMIA TRANS TELE MEASUR [place] 08-20-2023 Measure [place] Interval 198 [facility] MEASURE QRS Interval 87 [facility] MEASURE QT Interval 463 [facility] MEASURE RR INTERVAL MAX 47.23 C [facility] Symptoms Routine - multiple tries [facility] Review of transmission demonstrates sinus bradycardia with [...] CARDIAC DATA AND REPORT, Scanned Documents section. [facility] ARRHYTHMIA TRANS TELE MEASUR [place] 08-07-2023 Measure [place] Interval 130 [facility] MEASURE QRS Interval 114 [facility] MEASURE QT Interval 493 [facility] MEASURE RR INTERVAL MAX 47.11 C [facility] Symptoms routine [facility] Review of transmission demonstrates sinus bradycardia NOTE [...] CARDIAC DATA AND REPORT, Scanned Documents section. [facility] ARRHYTHMIA TRANS TELE MEASUR [place] 08-02-2023 Arrhythmia-Activity taken multiple times with cell [facility] MEASURE QRS Interval 87 [facility] MEASURE QT Interval 436 [facility] MEASURE RR INTERVAL MAX 57.93 C [facility] Symptoms routine [facility] Review of transmission demonstrates possible sinus bradycardia [...] CARDIAC DATA AND REPORT, Scanned Documents section. [facility] ARRHYTHMIA TRANS TELE MEASUR [place] 07-29-2023 Measure [place] Interval 144 [facility] MEASURE QRS Interval 80 [facility] MEASURE QT Interval 436 [facility] MEASURE RR INTERVAL MAX 61.72 C [facility] Symptoms routine [facility] Review of transmission demonstrates sinus rhythm NOTE [...] CARDIAC DATA AND REPORT, Scanned Documents section. [facility] ARRHYTHMIA TRANS TELE MEASUR [place] 07-17-2023 Measure [place] Interval 106 [facility] MEASURE QRS Interval 97 [facility] MEASURE QT Interval 474 [facility] MEASURE RR INTERVAL MAX 58.12 C [facility] Symptoms Routine [facility] Review of transmission demonstrates sinus rhythm NOTE [...] CARDIAC DATA AND REPORT, Scanned Documents section. [facility] ARRHYTHMIA TRANS TELE MEASUR [place] 07-10-2023 Measure [place] Interval 137 Fidel [facility] MEASURE QRS Interval 97 [facility] MEASURE QT Interval 464 [facility] MEASURE RR INTERVAL MAX 58.31 C [facility] Symptoms Baseline [facility] Review of transmission demonstrates sinus bradycardia NOTE [...] CARDIAC DATA AND REPORT, Scanned Documents section. [facility] Paras 07-04-2023 CNPN Telephone (PODCCP) CRISELDA STORM ([id number]) 1945 F Date Time Provider Department 07/04/23 [...] Reason for Visit: Follow Up Phone Call [[phone]] Cmt: Relate care discharge follow iu-yurfragym-ovi clear Prescriptions as of 07/04/2023 - furosemide [...] Status:Closed by ANI VELASQUEZ on 07/04/23 Normal [facility] ANES POSTPROC EVALon 024 ANES POSTPROC EVAL HNO ID: [id number] Author: KIP VALENCIA MD Service: ? Author Type: Anesthesiologist Type: Anesthesia Postprocedure Evaluation Filed: 07/03/2023 16:57 Note Text: POST ANESTHESIA EVALUATION NOTE : 1945 Procedure Summary Date: 07/03/23 Room / Location: [address] EP LAB Anesthesia Start: 826 Anesthesia [...] July 03, 2023 TIME: 4:57 PM CSN: [id number] Normal [facility] ANES PRE-OPon 07-03-2023 ANES PRE-OP HNO ID: [id number] Author: KIP VALENCIA MD Service: ? Author Type: Anesthesiologist Type: Anesthesia Preprocedure Evaluation Filed: 07/03/2023 07:19 Note Text: ANESTHESIOLOGY DAY OF SURGERY NOTE : 1945 Procedure Information Date/Time: 07/03/23 0700 Procedure: COMPLETE EPS W/PVI ABL W/WO 3D MAP ICE Location: [facility] / EP LAB Surgeons: Bear Rodarte MD [...] July 03, 2023 TIME: 7:18 AM CSN: [id number] Normal [facility] Basic metabolic 2000 panelon 07-03-2023 Anion gap [Moles/Vol] 11 mmol/L Normal 9-18 [facility] Comment on above: Order Comment: Isabel zayas Type: BLOOD SPECIMEN Ordering Facility: [facility] Address: [address] [place] [address] Performed By: #### 5 8410-2 #### [facility] CLIA [id number] [address] [place] [address] [place] Calcium [Mass/Vol] 9.0 mg/dL Normal 8.5-10.2 [facility] Comment on above: Order Comment: Isabel zayas Type: BLOOD SPECIMEN Ordering Facility: [facility] Address: [address] [place] [address] Performed By: #### 5 8410-2 #### [facility] CLIA [id number] [address] [place] [address] [place] Chloride [Moles/Vol] 97 mmol/L Normal 97-105 [facility] Comment on above: Order Comment: Jazzyi men Type: BLOOD SPECIMEN Ordering Facility: [facility] Address: [address] [place] [address] Performed By: #### 5 8410-2 #### [facility] CLIA [id number] [address] [place] [address] [place] CO2 [Moles/Vol] 28 mmol/L Normal 22-30 [facility] Comment on above: Order Comment: Speci men Type: BLOOD SPECIMEN Ordering Facility: [facility] Address: [address] [place] [address] Performed By: #### 5 8410-2 #### [facility] CLIA [id number] [address] [place] [address] [place] Creatinine [Mass/Vol] 0.77 mg/dL Normal 0.58-0.96 [facility] Comment on above: Order Comment: Speci men Type: BLOOD SPECIMEN Ordering Facility: [facility] Address: [address] [place] [address] Performed By: #### 5 8410-2 #### [facility] CLIA [id number] [address] [place] [address] [place] Creatinine and Glomerular filtration rate.predicted panel (S/P/Bld) 80 mL/min/1.73m??? Normal >=60 [facility] Comment on above: Order Comment: Speci men Type: BLOOD SPECIMEN Ordering Facility: [facility] Address: [address] [place] [address] Result Comment: Valentine mated Glomerular Filtration Rate [...] GFR. Performed By: #### 5 8410-2 #### [facility] CLIA [id number] [address] [place] [address] [place] Glucose [Mass/Vol] 96 mg/dL Normal 74-99 [facility] Comment on above: Order Comment: Speci men Type: BLOOD SPECIMEN Ordering Facility: [facility] Address: [address] [place] [address] Result Comment: The [place] Diabetes Association (ADA) provides guidance for cutoff [...] Standards of Medical Care in Diabetes 2016, [place] [employer]. Diabetes Care. 2016.39(Suppl 1). Performed By: #### 5 8410-2 #### [facility] CLIA [id number] [address] [place] [address] [place] Potassium [Moles/Vol] 4.0 mmol/L Normal 3.7-5.1 [facility] Comment on above: Order Comment: Speci men Type: BLOOD SPECIMEN Ordering Facility: [facility] Address: [address] [place] [address] Performed By: #### 5 8410-2 #### [facility] CLIA [id number] [address] [place] [address] [place] Sodium [Moles/Vol] 136 mmol/L Normal 136-144 [facility] Comment on above: Order Comment: Speci men Type: BLOOD SPECIMEN Ordering Facility: [facility] Address: [address] [place] [address] Performed By: #### 5 8410-2 #### [facility] CLIA [id number] [address] [place] [address] [place] Urea nitrogen [Mass/Vol] 14 mg/dL Normal 7-21 [facility] Comment on above: Order Comment: Speci men Type: BLOOD SPECIMEN Ordering Facility: [facility] Address: [address] [place] [address] Performed By: #### 5 8410-2 #### [facility] CLIA [id number] [address] [place] [address] [place] CBC panel Auto (Bld)on 07-02 Erythrocyte distribution width (RBC) [Ratio] 14.4 % Normal 11.5-15.0 [facility] Comment on above: Order Comment: Speci men Type: BLOOD SPECIMEN Ordering Facility: [facility] Address: [address] [place] [address] Performed By: #### 5 8410-2 #### [facility] CLIA [id number] [address] [place] [address] [place] Hematocrit (Bld) [Volume fraction] 42.4 % Normal 36.0-46.0 [facility] Comment on above: Order Comment: Speci men Type: BLOOD SPECIMEN Ordering Facility: [facility] Address: [address] [place] [address] Performed By: #### 5 8410-2 #### [facility] CLIA [id number] [address] [place] [address] [place] Hemoglobin (Bld) [Mass/Vol] 13.6 g/dL Normal 11.5-15.5 [facility] Comment on above: Order Comment: Speci men Type: BLOOD SPECIMEN Ordering Facility: [facility] Address: [address] [place] [address] Performed By: #### 5 8410-2 #### [facility] CLIA [id number] [address] [place] [address] [place] MCH (RBC) [Entitic mass] 31.6 pg Normal 26.0-34.0 [facility] Comment on above: Order Comment: Speci men Type: BLOOD SPECIMEN Ordering Facility: [facility] Address: [address] [place] [address] Performed By: #### 5 8410-2 #### [facility] CLIA [id number] [address] [place] [address] [place] MCHC (RBC) [Mass/Vol] 32.1 g/dL Normal 30.5-36.0 [facility] Comment on above: Order Comment: Speci men Type: BLOOD SPECIMEN Ordering Facility: [facility] Address: [address] [place] [address] Performed By: #### 5 8410-2 #### [facility] CLIA [id number] [address] [place] [address] [place] MCV (RBC) [Entitic vol] 98.6 fL Normal 80.0-100.0 [facility] Comment on above: Order Comment: Speci men Type: BLOOD SPECIMEN Ordering Facility: [facility] Address: [address] [place] [address] Performed By: #### 5 8410-2 #### [facility] CLIA [id number] [address] [place] [address] [place] Nucleated RBC (Bld) [#/Vol] 0.03 10*3/uL High <0.01 [facility] Comment on above: Order Comment: Speci men Type: BLOOD SPECIMEN Ordering Facility: [facility] Address: [address] [place] [address] Performed By: #### 5 8410-2 #### [facility] CLIA [id number] [address] [place] [address] [place] Platelet mean volume (Bld) [Entitic vol] 11.2 fL Normal 9.0-12.7 [facility] Comment on above: Order Comment: Speci men Type: BLOOD SPECIMEN Ordering Facility: [facility] Address: [address] [place] [address] Performed By: #### 5 8410-2 #### [facility] CLIA [id number] [address] [place] [address] [place] Platelets (Bld) [#/Vol] 333 10*3/uL Normal 150-400 [facility] Comment on above: Order Comment: Speci men Type: BLOOD SPECIMEN Ordering Facility: [facility] Address: [address] [place] [address] Performed By: #### 5 8410-2 #### [facility] CLIA [id number] [address] [place] [address] [place] RBC (Bld) [#/Vol] 4.30 10*6/uL Normal 3.90-5.20 [facility] Comment on above: Order Comment: Speci men Type: BLOOD SPECIMEN Ordering Facility: [facility] Address: [address] [place] [address] Performed By: #### 5 8410-2 #### [facility] CLIA [id number] [address] [place] [address] [place] WBC (Bld) [#/Vol] 4.54 10*3/uL Normal 3.70-11.00 [facility] Comment on above: Order Comment: Speci men Type: BLOOD SPECIMEN Ordering Facility: [facility] Address: [address] [place] [address] Performed By: #### 5 8410-2 #### [facility] CLIA [id number] [address] [place] [address] [place] [id number] 07-03-2023 ECG01 Ventricular Rate : 5 8 BPM Atrial Rate : 58 BPM P-R Interval : 190 ms QRS Duration : 96 ms Q-T Interval : 526 ms QTC Calculation(Bazett) : 516 ms Calculated P Dutton : 69 degrees Calculated R Dutton : 26 degrees Calculated T Dutton : 62 degrees SINUS BRADYCARDIA LOW VOLTAGE QRS, CONSIDER PULMONARY DISEASE, PERICARDIAL EFFUSION, OR NORMAL VARIANT ST & ANTEROLATERAL T WAVE ABNORMALITY PROLONGED QT INTERVAL OR TU FUSION, CONSIDER HYPOKALEMIA ABNORMAL ECG Confirmed by CINTHIA SAINI MD ([id number]) on 07/23/2023 1:56:18 PM NAME : CRISELDA STORM PID : [id number] : 1945 Gender : Female Race : [...] Referred By : , Acquired by : [id number], Normal [facility] CNOVon 06-26-2023 CNOV Office Visit (CARDMN ) CRISELDA STORM ([id number]) 1945 F Date Time Provider Department 06/26/23 3:00 PM TISHA ARAUJO CARDMN During your visit today, we recorded the following information about you: Pulse Blood pressure Weight Height 60/minute 130/68 56.7 kg 1.613 m Tisha Araujo, ELECTROMEDICAL SERVICE ENGINEER.TRANSPLANT IMMUNOLOGIST 06/26/2023 4:47 PM Signed [facility] Maddison Carbajal Department of Cardiovascular Medicine SECTION OF CARDIAC PACING and ELECTROPHYSIOLOGY OUTPATIENT VISIT DATE June 26, 2023 OUTPATIENT VISIT TYPE ESTABLISHED PRIMARY CARE PHYSICIAN: Rachna Acosta [address] [place] [address] Hogshead Roller: Dr. Melchor REFERRING PHYSICIAN: Self CHIEF COMPLAINT: [...] in March, she had an echo at [facility] which revealed EF had normalized to 58% [...] Cancer Mother Stomach, age 40's Heart Father [place] No Known Problems Sister Heart Brother [place] other (no other known family hx of [...] Itching-No. Hematological (more content not included)... Normal [facility] CONFIRM BLOOD TYPEon 024 ABO A Normal [facility] Comment on above: Order Comment: Speci men Type: BLOOD SPECIMEN Ordering Facility: [facility] Address: [address] [place] [address] Performed By: #### 5 8410-2 #### [facility] CLIA [id number] [address] [place], [place] [address] [place] [address] [place] Rh Nom (Bld) Positive Normal [facility] Comment on above: Order Comment: Speci men Type: BLOOD SPECIMEN Ordering Facility: [facility] Address: [address] [place] [address] Performed By: #### 5 8410-2 #### [facility] CLIA [id number] [address] [place] [address] [place] PULMONARY VEIN [...] TECHNIQUE: SCANNER: Siemens Somatom Force Dual source [id number] scanner PROTOCOL: Sequential imaging of the heart [...] Almonte images reconstructed, saved, and available in [employer] 'Get Images'. STUDY LIMITATIONS: None. RESULT: LINES, [...] AORTIC DIMENSIONS: AORTIC ROOT: 3.5 cm measured hdyxg-tw-tizuk mid ASCENDING THORACIC AORTA: 3.2 cm mid DESCENDING THORACIC AORTA: 2.2 cm limited upper ABDOMEN: small cystic lesion in the right lobe of liver. - adjacent 7 mm focal hyperdense lesion, which may represent hemangioma but is incompletely characterized in the current study Clinical correlation and if indicated dedicated interval abdominal follow-up studies are recommended Dairy Chemist (topogram) images: No additional findings. IMPRESSION: WIDELY [...] (more content not included)... Invalid Interpretation Code [facility] CTA Pulmonary veins W contra st IVOrdered By: Ccrei Provider on 06-26-2023 Interpretation and review of laboratory results Abnormal [facility] Result ACTIONABLE Abnormal Guilherme haque [facility] Comment on above: This report contains an [...] contact your provider for the next steps. [facility] CTA Pulmonary veins W contra st Brandon [...] be communicated with the ordering provider via [employer] staff message or phone message by [employer] within 2 business days of report finalization. --END OF FINDING-- Physician Assistant Certified: JOSE M Transcribe Date/Time: Jun 26 2023 3:11P Dictated by : ERIKA TELLO MD This examination was interpreted and the report reviewed and electronically signed by: ANAY IBARRA MD on Jun 26 2023 4:10PM [facility] [[email or web address]] DIVISION OF RADIOLOGY * * *Final Report* [...] TECHNIQUE: SCANNER: Siemens Somatom Force Dual source [id number] scanner PROTOCOL: Sequential imaging of the heart [...] Almonte images reconstructed, saved, and available in [employer] 'Get Images'. STUDY LIMITATIONS: None. RESULT: LINES, [...] AORTIC DIMENSIONS: AORTIC ROOT: 3.5 cm measured zctkh-xg-wfdfh mid ASCENDING THORACIC AORTA: 3.2 cm mid DESCENDING THORACIC AORTA: 2.2 cm limited upper ABDOMEN: small cystic lesion in the right lobe of liver. - adjacent 7 mm focal hyperdense lesion, which may represent hemangioma but is incompletely characterized in the current study Clinical correlation and if indicated dedicated interval abdominal follow-up studies are recommended Dairy Chemist (topogram) images: No additional findings. DIVISION OF RADIOLOGY Provider, [facility] - 06/26/2023 * * *Final Report* * [...] TECHNIQUE: SCANNER: Siemens Somatom Force Dual source [id number] scanner PROTOCOL: Sequential imaging of the heart [...] Almonte images reconstructed, saved, and available in [employer] 'Get Images'. STUDY LIMITATIONS: None. RESULT: LINES, [...] AORTIC DIMENSIONS: AORTIC ROOT: 3.5 cm measured bjkti-ie-brswv mid ASCENDING THORACIC AORTA: 3.2 cm mid DESCENDING THORACIC AORTA: 2.2 cm limited upper ABDOMEN: small cystic lesion in the right lobe of liver. - adjacent 7 mm focal hyperdense lesion, which may represent hemangioma but is incompletely characterized in the current study Clinical correlation and if indicated dedicated interval abdominal follow-up studies are recommended Dairy Chemist (topogram) images: No additional findings. IMPRESSION IMPRESSION: [...] clips in the (more content not included)... [facility] Study observation (narrative) [facility] ECG COMPLETEon 06-26-2023 ECG COMPLETE Ventricular Rate : 6 0 BPM Atrial Rate : 60 BPM P-R Interval : 170 ms QRS Duration : 78 ms Q-T Interval : 472 ms QTC Calculation(Bazett) : 472 ms Calculated P Dutton : 69 degrees Calculated R Dutton : 15 degrees Calculated T Dutton : 43 degrees NORMAL SINUS RHYTHM NONSPECIFIC ST AND T WAVE ABNORMALITY ABNORMAL ECG Confirmed by KIMBERLEE DIAZ MD ([id number]) on 07/17/2023 9:59:22 AM NAME : CRISELDA STORM PID : [id number] : 1945 Gender : Female Race : ORD : [id number] Procedure Date : Jun 26 2023 13:33:44 Edit Date : Jul 17 2023 09:59:23 Diagnosis: NORMAL SINUS RHYTHM NONSPECIFIC ST AND T WAVE ABNORMALITY ABNORMAL ECG Confirmed by KIMBERLEE DIAZ MD ([id number]) on 07/17/2023 9:59:22 AM Test Reason : Location : 314 : J14 J1-4 Overread By : KIMBERLEE DIAZ MD Edited By : KIMBERLEE DIAZ MD Referred By : BEAR RODARTE Acquired by : CHE MORAN Normal [facility] TYPE AND SCREEN,30 DAYon ABO A Normal [facility] Comment on above: Order Comment: Speci men Type: BLOOD SPECIMEN Ordering Facility: [facility] Address: [address] [place] [address] Performed By: #### 5 8410-2 #### [facility] CLIA [id number] [address] [place] [address] [place] HISTORICAL AB SCR STATUS Negative Normal [facility] Comment on above: Order Comment: Speci men Type: BLOOD SPECIMEN Ordering Facility: [facility] Address: [address] [place] [address] Performed By: #### 5 8410-2 #### [facility] CLIA [id number] [address] [place] [address] [place] Rh Nom (Bld) Positive Normal [facility] Comment on above: Order Comment: Speci men Type: BLOOD SPECIMEN Ordering Facility: [facility] Address: [address] [place] [address] Performed By: #### 5 8410-2 #### [facility] CLIA [id number] [address] [place] [address] [place] CNPMinerva 06-12-2023 CNPN Telephone ([facility]) CRISELDA STORM ([id number]) 1945 F Date Time Provider Department 06/12/23 BEAR RODARTE [facility] During your visit today, we recorded the following information about you: January Clark RN 06/12/2023 3:52 PM Signed Due to change in Dr. Rodarte's schedule, called patient and left message offering sooner date of Saturday07/03/23. Awaiting return call from patient. January Clark, RN, RN January Clark RN 06/12/2023 5:12 PM Signed Patient returned call and accepted sooner procedure date of Saturday07/03/[address] Rodrate. Reviewed medication instructions with patient, patient stated [...] Status:Closed by JANUARY CLARK on 06/12/23 Normal [facility] Basic metabolic 2000 panelon 05-29-2023 Anion gap [Moles/Vol] 9 mmol/L Normal 9-18 [facility] Comment on above: Order Comment: Speci men Type: BLOOD SPECIMEN Ordering Facility: [facility] Address: [address] [place], [place] [address] Performed By: #### 5 8410-2 #### [facility] CLIA [id number] [address] [place] [address] [place] Calcium [Mass/Vol] 9.8 mg/dL Normal 8.5-10.2 [facility] Comment on above: Order Comment: Speci men Type: BLOOD SPECIMEN Ordering Facility: [facility] Address: [address] [place] [address] Performed By: #### 5 8410-2 #### [facility] CLIA [id number] [address] [place] [address] [place] Chloride [Moles/Vol] 95 mmol/L Low 97-105 [facility] Comment on above: Order Comment: Speci men Type: BLOOD SPECIMEN Ordering Facility: [facility] Address: [address] [place] [address] Performed By: #### 5 8410-2 #### [facility] CLIA [id number] [address] [place] [address] [place] CO2 [Moles/Vol] 30 mmol/L Normal 22-30 [facility] Comment on above: Order Comment: Speci men Type: BLOOD SPECIMEN Ordering Facility: [facility] Address: [address] [place], [place] [address] Performed By: #### 5 8410-2 #### [facility] CLIA [id number] [address] [place] [id number] [place] Creatinine [Mass/Vol] 0.86 mg/dL Normal 0.58-0.96 [facility] Comment on above: Order Comment: Speci men Type: BLOOD SPECIMEN Ordering Facility: [facility] Address: [address] [place], [place] [address] Performed By: #### 5 8410-2 #### [facility] CLIA [id number] [address] [place] [address] [place] Creatinine and Glomerular filtration rate.predicted panel (S/P/Bld) 70 mL/min/1.73m??? Normal >=60 [facility] Comment on above: Order Comment: Isabel zayas Type: BLOOD SPECIMEN Ordering Facility: [facility] Address: [address] [place] [address] Result Comment: Valentine mated Glomerular Filtration Rate [...] GFR. Performed By: #### 5 8410-2 #### [facility] CLIA [id number] [address] [place] [address] [place] Glucose [Mass/Vol] 100 mg/dL High 74-99 [facility] Comment on above: Order Comment: Isabel zayas Type: BLOOD SPECIMEN Ordering Facility: [facility] Address: [address] [place] [address] Result Comment: The [place] Diabetes Association (ADA) provides guidance for cutoff [...] Standards of Medical Care in Diabetes 2016, [place] [employer]. Diabetes Care. 2016.39(Suppl 1). Performed By: #### 5 8410-2 #### [facility] CLIA [id number] [address] [place] [address] [place] Potassium [Moles/Vol] 4.4 mmol/L Normal 3.7-5.1 [facility] Comment on above: Order Comment: Speci men Type: BLOOD SPECIMEN Ordering Facility: [facility] Address: [address] [place] [address] Performed By: #### 5 8410-2 #### [facility] CLIA [id number] [address] [place] [address] [place] Sodium [Moles/Vol] 134 mmol/L Low 136-144 [facility] Comment on above: Order Comment: Speci men Type: BLOOD SPECIMEN Ordering Facility: [facility] Address: [address] [place] [address] Performed By: #### 5 8410-2 #### [facility] CLIA [id number] [address] [place] [address] [place] Urea nitrogen [Mass/Vol] 17 mg/dL Normal 7-21 [facility] Comment on above: Order Comment: Speci men Type: BLOOD SPECIMEN Ordering Facility: [facility] Address: [address] [place] [address] Performed By: #### 5 8410-2 #### [facility] CLIA [id number] [address] [place] [address] [place] CBC panel Auto (Bld)on 05-28 Erythrocyte distribution width (RBC) [Ratio] 14.3 % Normal 11.5-15.0 [facility] Comment on above: Order Comment: Speci men Type: BLOOD SPECIMEN Ordering Facility: [facility] Address: [address] [place] [address] Performed By: #### 5 8410-2 #### [facility] CLIA [id number] [address] [place] [address] [place] Hematocrit (Bld) [Volume fraction] 41.9 % Normal 36.0-46.0 [facility] Comment on above: Order Comment: Speci men Type: BLOOD SPECIMEN Ordering Facility: [facility] Address: [address] [place] [address] Performed By: #### 5 8410-2 #### [facility] CLIA [id number] [address] [place] [address] [place] Hemoglobin (Bld) [Mass/Vol] 13.6 g/dL Normal 11.5-15.5 [facility] Comment on above: Order Comment: Speci men Type: BLOOD SPECIMEN Ordering Facility: [facility] Address: [address] [place] [address] Performed By: #### 5 8410-2 #### [facility] CLIA [id number] [address] [place] [address] [place] MCH (RBC) [Entitic mass] 32.0 pg Normal 26.0-34.0 [facility] Comment on above: Order Comment: Speci men Type: BLOOD SPECIMEN Ordering Facility: [facility] Address: [address] [place] [address] Performed By: #### 5 8410-2 #### [facility] CLIA [id number] [address] [place] [address] [place] MCHC (RBC) [Mass/Vol] 32.5 g/dL Normal 30.5-36.0 [facility] Comment on above: Order Comment: Speci men Type: BLOOD SPECIMEN Ordering Facility: [facility] Address: [address] [place] [address] Performed By: #### 5 8410-2 #### [facility] CLIA [id number] [address] [place] [address] [place] MCV (RBC) [Entitic vol] 98.6 fL Normal 80.0-100.0 [facility] Comment on above: Order Comment: Speci men Type: BLOOD SPECIMEN Ordering Facility: [facility] Address: [address] [place] [address] Performed By: #### 5 8410-2 #### [facility] CLIA [id number] [address] [place] [address] [place] Nucleated RBC (Bld) [#/Vol] 10*3/uL Normal <0.01 [facility] Comment on above: Order Comment: Speci men Type: BLOOD SPECIMEN Ordering Facility: [facility] Address: [address] [place] [address] Performed By: #### 5 8410-2 #### [facility] CLIA [id number] [address] [place] [address] [place] Platelet mean volume (Bld) [Entitic vol] 10.7 fL Normal 9.0-12.7 [facility] Comment on above: Order Comment: Speci men Type: BLOOD SPECIMEN Ordering Facility: [facility] Address: [address] [place] [address] Performed By: #### 5 8410-2 #### [facility] CLIA [id number] [address] [place] [address] [place] Platelets (Bld) [#/Vol] 311 10*3/uL Normal 150-400 [facility] Comment on above: Order Comment: Speci men Type: BLOOD SPECIMEN Ordering Facility: [facility] Address: [address] [place] [address] Performed By: #### 5 8410-2 #### [facility] CLIA [id number] [address] [place] [address] [place] RBC (Bld) [#/Vol] 4.25 10*6/uL Normal 3.90-5.20 [facility] Comment on above: Order Comment: Speci men Type: BLOOD SPECIMEN Ordering Facility: [facility] Address: [address] [place] [address] Performed By: #### 5 8410-2 #### [facility] CLIA [id number] [address] [place] [address] [place] WBC (Bld) [#/Vol] 4.05 10*3/uL Normal 3.70-11.00 [facility] Comment on above: Order Comment: Speci men Type: BLOOD SPECIMEN Ordering Facility: [facility] Address: [address] [place] [address] Performed By: #### 5 8410-2 #### [facility] CLIA [id number] [address] [place] [address] [facility] CNPMinerva 05-24-2023 CNPN Telephone (EPSMN) CRISELDA STORM ([id number]) 1945 F Date Time Provider Department 05/24/23 [facility] During your visit today, we recorded the following information about you: January Clark RN 05/24/2023 11:01 AM Signed ----- Message from Bear Rodarte MD sent at 05/16/2023 9:37 AM EDT ----- Regarding: Schedule AF/AFL ablation Patient: Criselda Storm EP Lab Procedure requested: Ablations PVI ablation CPT 55832 Anticoagulation Status: Eliquis (apixaban) Requesting Physician: Bear [...] [I48.19] Order(s):BASIC METABOLIC PNL [SQBMP] Order #: [id number] FUTURE CBC [SQCBC] Order #: [id number] FUTURE CONFIRM BLOOD TYPE [SQCONABO] Order #: [id number] FUTURE TYPE AND SCREEN,30 DAY [MRRGPV94] Order #: [id number] FUTURE ECG COMPLETE [ECG01] Order #: [id number] FUTURE CT PULMONARY VEIN W IVCON [[id number]] Order #: [id number] FUTURE iv contrast (will be provided with [...] EachRfl: 0 CREATININE BLD [SQCRET] Order #: [id number] FUTURE Prescriptions as of 05/24/2023 - iv [...] (RADIOLOGY PROCEDURE) (more content not included)... Normal [facility] percentageOrdered B y: Hazel Denson on 02-28-2023 Chloride [Moles/Vol] 101 mmol/L 98-107 [facility] Glucose [Mass/Vol] 114 mg/dL 74-106 [facility] Comment on above: Fasting Glucose resu lt from 100 to 125 mg/dL suggests IMPAIRED HOMEOSTASIS per A.D.A. criteria. Potassium [Moles/Vol] 3.3 mmol/L 3.5-5.1 [facility] Sodium [Moles/Vol] 139 mmol/L 136-145 [facility] WBC (Bld) [#/Vol] 6.8 10*3/uL 4.4-11.0 [facility] Blood erythrocytes count (nu mber/volume)Ordered By: Hazel Denson on 02-28-2023 RBC (Bld) [#/Vol] 3.86 10*6/uL 4.2-5.4 [facility] Blood hemoglobin measurement (mass/volume)Ordered By: Hazel Denson on 02-28-2023 Hemoglobin (Bld) [Mass/Vol] 12.5 g/dL 12.0-15.0 [facility] Blood platelet mean volumeOr dered By: Hazel Denson on 02-28-2023 Platelet mean volume (Bld) [Entitic vol] 10.9 fL 6.2-12.0 [facility] Determination of erythrocyte mean corpuscular volume (MCV)Ordered By: Hazel Denson on 02-28-2023 MCV (RBC) [Entitic vol] 100.5 fL 81-99 [facility] Hematocrit Auto (Bld) [Volum e fraction]Ordered By: Hazel Denson on 02-28-2023 Hematocrit (Bld) [Volume fraction] 38.8 % 37-47 [facility] Laboratory - Chemistry and C hemistry - challengeOrdered By: Hazel Denson on 02-28-2023 CO2 [Moles/Vol] 31.0 mmol/L 21.0-32.0 [facility] Natriuretic peptide B (Bld) [Mass/Vol] 641.1 pg/mL 0-100 [facility] Urea nitrogen/Creatinine [Mass ratio] 12.1 mg/mg 10-20 [facility] - Hematology and Cell countsOrdered By: Hazel Denson on 02-28-2023 Erythrocyte distribution width (RBC) [Entitic vol] 58.4 fL 35.1-43.9 [facility] Erythrocyte distribution width (RBC) [Ratio] 15.8 % 11.6-14.6 [facility] MCH (RBC) [Entitic mass] 32.4 pg 27.0-32.0 [facility] MCHC Auto (RBC) [Mass/Vol]Or dered By: Hazel Denson on 02-28-2023 MCHC (RBC) [Mass/Vol] 32.2 g/dL 32-36 [facility] No Panel InformationOrdered By: Hazel Denson on 02-28-2023 Estimated GFR (MDRD) Amer 77 mL/min >60 [facility] Comment on above: GFR Calc Estimated GFR (MDRD) Non-Af Amer 64 mL/min >60 [facility] Comment on above: Non- GFR Calc Platelets bldOrdered By: Shen Denson on 02-28-2023 Platelets (Bld) [#/Vol] 337 10*3/uL 150-450 [facility] Serum or plasma calcium ollie urement (mass/volume)Ordered By: Hazel Denson on 02-28-2023 Calcium [Mass/Vol] 9.0 mg/dL 8.5-10.1 [facility] Serum or plasma creatinine m easurement (mass/volume)Ordered By: Hazel Denson on 02-28-2023 Creatinine [Mass/Vol] 0.91 mg/dL 0.55-1.02 [facility] Comment on above: The validity of the calculated GFR & GFRAA in patients over 70 years has not been determined. Clinical correlation is essential. Serum or plasma urea nitroge n measurement (mass/volume)Ordered By: Hazel Denson on 02-28-2023 Urea nitrogen [Mass/Vol] 11 mg/dL 7-18 [facility] Thin prep Papanicolaou smear with manual screeningOrdered By: Hazel Denson on 02-28-2023 Thin prep Papanicolaou smear with manual screening 7 5-15 [facility] Absolute lymphocyte countOrd ered By: Hazel Denson on 12-20-2022 Lymphocytes Auto (Unsp spec) [#/Vol] 1.14 10*3/uL 0.83-4.51 [facility] Basophil percentageOrdered B y: Hazel Denson on 12-20-2022 Basophils/100 WBC (Bld) 1.2 % 0-1 [facility] Chloride [Moles/Vol] 98 mmol/L 98-107 [facility] Eosinophils/100 WBC (Bld) 0.9 % 0-5 [facility] Glucose [Mass/Vol] 107 mg/dL 74-106 [facility] Comment on above: Fasting Glucose resu lt from 100 to 125 mg/dL suggests IMPAIRED HOMEOSTASIS per A.D.A. criteria. Neutrophils (Bld) [#/Vol] 4.0 10*3/uL 2.0-7.7 [facility] Neutrophils/100 WBC (Bld) 69.1 % 47-70 [facility] Potassium [Moles/Vol] 3.8 mmol/L 3.5-5.1 [facility] Sodium [Moles/Vol] 137 mmol/L 136-145 [facility] WBC (Bld) [#/Vol] 5.8 10*3/uL 4.4-11.0 [facility] Blood erythrocytes count (nu mber/volume)Ordered By: Hazel Denson on 12-20-2022 RBC (Bld) [#/Vol] 4.35 10*6/uL 4.2-5.4 [facility] Blood hemoglobin measurement (mass/volume)Ordered By: Hazel Denson on 12-20-2022 Hemoglobin (Bld) [Mass/Vol] 13.6 g/dL 12.0-15.0 [facility] Blood lymphocytes/100 leukoc ytesOrdered By: Hazel Denson on 12-20-2022 Lymphocytes/100 WBC (Bld) 19.8 % 19-41 [facility] Blood monocytes/100 leukocyt esOrdered By: Hazel Denson on 12-20-2022 Monocytes/100 WBC (Bld) 8.7 % 0-10 [facility] Blood platelet mean volumeOr dered By: Hazel Denson on 12-20-2022 Platelet mean volume (Bld) [Entitic vol] 12.3 fL 6.2-12.0 [facility] Determination of erythrocyte mean corpuscular volume (MCV)Ordered By: Hazel Denson on 12-20-2022 MCV (RBC) [Entitic vol] 100.5 fL 81-99 [facility] Hematocrit Auto (Bld) [Volum e fraction]Ordered By: Hazel Denson on 12-20-2022 Hematocrit (Bld) [Volume fraction] 43.7 % 37-47 [facility] Laboratory - Chemistry and C hemistry - challengeOrdered By: Hazel Denson on 12-20-2022 CO2 [Moles/Vol] 33.0 mmol/L 21.0-32.0 [facility] Urea nitrogen/Creatinine [Mass ratio] 15.5 mg/mg 10-20 [facility] Laboratory - Hematology and Cell countsOrdered By: Hazel Denson on 12-20-2022 Erythrocyte distribution width (RBC) [Entitic vol] 49.9 fL 35.1-43.9 [facility] Erythrocyte distribution width (RBC) [Ratio] 13.7 % 11.6-14.6 [facility] Immature granulocytes/100 WBC (Bld) 0.300 % 0.0-0.9 [facility] Comment on above: IG% - Immature Granu locytes (promyelocytes, myelocytes and metamyelocytes) > 1% indicates that a LEFT SHIFT is Present. MCH (RBC) [Entitic mass] 31.3 pg 27.0-32.0 [facility] Nucleated RBC/100 WBC (Bld) [Ratio] 0 % 0-5 [facility] MCHC Auto (RBC) [Mass/Vol]Or dered By: Hazel Denson on 12-20-2022 MCHC (RBC) [Mass/Vol] 31.1 g/dL 32-36 [facility] No Panel InformationOrdered By: Hazel Denson on 12-20-2022 Estimated GFR (MDRD) Amer 85 mL/min >60 [facility] Comment on above: GFR Calc Estimated GFR (MDRD) Non-Af Amer 70 mL/min >60 [facility] Comment on above: Non- GFR Calc Platelets bldOrdered By: Shen Denson on 12-20-2022 Platelets (Bld) [#/Vol] 273 10*3/uL 150-450 [facility] Serum or plasma calcium ollie urement (mass/volume)Ordered By: Hazel Denson on 12-20-2022 Calcium [Mass/Vol] 9.0 mg/dL 8.5-10.1 [facility] Serum or plasma creatinine m easurement (mass/volume)Ordered By: Hazel Denson on 12-20-2022 Creatinine [Mass/Vol] 0.84 mg/dL 0.55-1.02 [facility] Comment on above: The validity of the calculated GFR & GFRAA in patients over 70 years has not been determined. Clinical correlation is essential. Serum or plasma urea nitroge n measurement (mass/volume)Ordered By: Hazel Denson on 12-20-2022 Urea nitrogen [Mass/Vol] 13 mg/dL 7-18 [facility] Thin prep Papanicolaou smear with manual screeningOrdered By: Hazel Denson on 12-20-2022 Thin prep Papanicolaou smear with manual screening 6 5-15 [facility] Absolute lymphocyte countOrd ered By: Rachna Acosta on 10-29-2022 Lymphocytes Auto (Unsp spec) [#/Vol] 0.48 10*3/uL 0.83-4.51 [facility] Basophil percentageOrdered B y: Rachna Acosta on 10-29-2022 Basophils/100 WBC (Bld) 0.2 % 0-1 [facility] Bilirubin [Mass/Vol] 0.70 mg/dL 0.20-1.00 [facility] Comment on above: For patients on eltr ombopag therapy, use of Dimension [place] TBIL is not recommended. Chloride [Moles/Vol] 96 mmol/L 98-107 [facility] Eosinophils/100 WBC (Bld) 0.0 % 0-5 [facility] Glucose [Mass/Vol] 116 mg/dL 74-106 [facility] Comment on above: Fasting Glucose resu lt from 100 to 125 mg/dL suggests IMPAIRED HOMEOSTASIS per A.D.A. criteria. Neutrophils (Bld) [#/Vol] 9.5 10*3/uL 2.0-7.7 [facility] Neutrophils/100 WBC (Bld) 91.2 % 47-70 [facility] Potassium [Moles/Vol] 3.5 mmol/L 3.5-5.1 [facility] Protein [Mass/Vol] 7.5 g/dL 6.4-8.2 [facility] Sodium [Moles/Vol] 134 mmol/L 136-145 [facility] WBC (Bld) [#/Vol] 10.4 10*3/uL 4.4-11.0 [facility] Blood erythrocytes count (nu mber/volume)Ordered By: Rachna Acosta on 10-29-2022 RBC (Bld) [#/Vol] 4.76 10*6/uL 4.2-5.4 [facility] Blood hemoglobin measurement (mass/volume)Ordered By: Rachna Acosta on 10-29-2022 Hemoglobin (Bld) [Mass/Vol] 15.6 g/dL 12.0-15.0 [facility] Blood lymphocytes/100 leukoc ytesOrdered By: Rachna Acosta on 10-29-2022 Lymphocytes/100 WBC (Bld) 4.6 % 19-41 [facility] Blood manual differential co mment interpretation (narrative result)Ordered By: Rachna Acosta on 10-29-2022 Manual differential comment Narendra (Bld) [Interp] SCANNED [facility] Blood monocytes/100 leukocyt esOrdered By: Rachna Acosta on 10-29-2022 Monocytes/100 WBC (Bld) 3.5 % 0-10 [facility] Blood platelet mean volumeOr dered By: Rachna Acosta on 10-29-2022 Platelet mean volume (Bld) [Entitic vol] 12.2 fL 6.2-12.0 [facility] Determination of erythrocyte mean corpuscular volume (MCV)Ordered By: Rachna Acosta on 10-29-2022 MCV (RBC) [Entitic vol] 100.4 fL 81-99 [facility] Hematocrit Auto (Bld) [Volum e fraction]Ordered By: Rachna Acosta on 10-29-2022 Hematocrit (Bld) [Volume fraction] 47.8 % 37-47 [facility] Laboratory - Chemistry and C hemistry - challengeOrdered By: Rachna cAosta on 10-29-2022 ALP [Catalytic activity/Vol] 127 U/L 45-117 [facility] ALT [Catalytic activity/Vol] 72 U/L 13-56 [facility] CO2 [Moles/Vol] 27.0 mmol/L 21.0-32.0 [facility] Free T4 [Mass/Vol] 1.30 ng/dL 0.76-1.46 [facility] Globulin (S) [Mass/Vol] 3.7 g/dL 2.2-4.2 [facility] Magnesium [Mass/Vol] 2.4 mg/dL 1.6-2.6 [facility] Urea nitrogen/Creatinine [Mass ratio] 20.6 mg/mg 10-20 [facility] Laboratory - Hematology and Cell countsOrdered By: Rachna Acosta on 10-29-2022 Erythrocyte distribution width (RBC) [Entitic vol] 47.5 fL 35.1-43.9 [facility] Erythrocyte distribution width (RBC) [Ratio] 12.7 % 11.6-14.6 [facility] Immature granulocytes/100 WBC (Bld) 0.500 % 0.0-0.9 [facility] Comment on above: IG% - Immature Granu locytes (promyelocytes, myelocytes and metamyelocytes) > 1% indicates that a LEFT SHIFT is Present. MCH (RBC) [Entitic mass] 32.8 pg 27.0-32.0 [facility] Nucleated RBC/100 WBC (Bld) [Ratio] 0.2 % 0-5 [facility] MCHC Auto (RBC) [Mass/Vol]Or dered By: Rachna Acosta on 10-29-2022 MCHC (RBC) [Mass/Vol] 32.6 g/dL 32-36 [facility] No Panel InformationOrdered By: Rachna Acosta on 10-29-2022 Estimated GFR (MDRD) Amer 87 mL/min >60 [facility] Comment on above: GFR Calc Estimated GFR (MDRD) Non-Af Amer 72 mL/min >60 [facility] Comment on above: Non- GFR Calc Free Triiodothyronine (T3) pg/dL 1.6 pg/mL 2.18-3.98 [facility] Thyroid Stimulating Hormone (TSH) 2.02 uIU/mL 0.358-3.74 [facility] Troponin I High Sensitivity 21 pg/mL 3.0-54.0 [facility] Comment on above: Please Note: New Vicky t Units and Gender Specific Reference Ranges. For more information see Policy Stat Procedure [place] High Sensitivity Troponin (TNIH) and attachments. Platelets bldOrdered By: Ashley Acosta on 10-29-2022 Platelets (Bld) [#/Vol] 301 10*3/uL 150-450 [facility] Serum or plasma albumin ollie urement (mass/volume)Ordered By: Rachna Acosta on 10-29-2022 Albumin [Mass/Vol] 3.8 g/dL 3.2-5.0 [facility] Serum or plasma albumin/glob ulin mass ratioOrdered By: Rachna Acosta on 10-29-2022 Albumin/Globulin [Mass ratio] 1.0 {ratio} 0.9-2.4 [facility] Serum or plasma calcium ollie urement (mass/volume)Ordered By: Rachna Acsota on 10-29-2022 Calcium [Mass/Vol] 9.5 mg/dL 8.5-10.1 [facility] Serum or plasma creatinine m easurement (mass/volume)Ordered By: Rachna Acosta on 10-29-2022 Creatinine [Mass/Vol] 0.82 mg/dL 0.55-1.02 [facility] Comment on above: The validity of the calculated GFR & GFRAA in patients over 70 years has not been determined. Clinical correlation is essential. Serum or plasma urea nitroge n measurement (mass/volume)Ordered By: Rachna Acosta on 10-29-2022 Urea nitrogen [Mass/Vol] 17 mg/dL 7-18 [facility] Thin prep Papanicolaou smear with manual screeningOrdered By: Rachna Acosta on 10-29-2022 Thin prep Papanicolaou smear with manual screening 53 U/L 15-37 [facility] Thin prep Papanicolaou smear with manual screening 11 5-15 [facility] Absolute lymphocyte countOrd ered By: Diandra Zuniga on 10-24-2022 Lymphocytes Auto (Unsp spec) [#/Vol] 0.99 10*3/uL 0.83-4.51 [facility] Basophil percentageOrdered B y: Diandra Zuniga on 10-24-2022 Basophils/100 WBC (Bld) 0.8 % 0-1 [facility] Bilirubin [Mass/Vol] 0.80 mg/dL 0.20-1.00 [facility] Comment on above: For patients on eltr ombopag therapy, use of Dimension [place] TBIL is not recommended. Chloride [Moles/Vol] 94 mmol/L 98-107 [facility] Eosinophils/100 WBC (Bld) 1.0 % 0-5 [facility] Glucose [Mass/Vol] 123 mg/dL 74-106 [facility] Comment on above: Fasting Glucose resu lt from 100 to 125 mg/dL suggests IMPAIRED HOMEOSTASIS per A.D.A. criteria. Neutrophils (Bld) [#/Vol] 5.7 10*3/uL 2.0-7.7 [facility] Neutrophils/100 WBC (Bld) 78.1 % 47-70 [facility] Potassium [Moles/Vol] 3.5 mmol/L 3.5-5.1 [facility] Protein [Mass/Vol] 7.7 g/dL 6.4-8.2 [facility] Sodium [Moles/Vol] 129 mmol/L 136-145 [facility] WBC (Bld) [#/Vol] 7.3 10*3/uL 4.4-11.0 [facility] Blood erythrocytes count (nu mber/volume)Ordered By: Diandra Zuniga on 10-24-2022 RBC (Bld) [#/Vol] 4.55 10*6/uL 4.2-5.4 [facility] Blood hemoglobin measurement (mass/volume)Ordered By: Diandra Zuniga on 10-24-2022 Hemoglobin (Bld) [Mass/Vol] 15.0 g/dL 12.0-15.0 [facility] Blood lymphocytes/100 leukoc ytesOrdered By: Diandra Zuniga on 10-24-2022 Lymphocytes/100 WBC (Bld) 13.6 % 19-41 [facility] Blood manual differential co mment interpretation (narrative result)Ordered By: Diandra Zuniga on 10-24-2022 Manual differential comment Narendra (Bld) [Interp] SCANNED [facility] Blood monocytes/100 leukocyt esOrdered By: Diandra Zuniga on 10-24-2022 Monocytes/100 WBC (Bld) 6.1 % 0-10 [facility] Blood platelet mean volumeOr dered By: Diandra Zuniga on 10-24-2022 Platelet mean volume (Bld) [Entitic vol] 12.3 fL 6.2-12.0 [facility] Determination of erythrocyte mean corpuscular volume (MCV)Ordered By: Diandra Zuniga on 10-24-2022 MCV (RBC) [Entitic vol] 99.8 fL 81-99 [facility] Erythrocyte sedimentation ra teOrdered By: Diandra Zuniga on 10-24-2022 ESR (Bld) [Velocity] 26 mm/h 0-30 [facility] Hematocrit Auto (Bld) [Volum e fraction]Ordered By: Diandra Zuniga on 10-24-2022 Hematocrit (Bld) [Volume fraction] 45.4 % 37-47 [facility] Laboratory - Chemistry and C hemistry - challengeOrdered By: Diandra Zuniga on 10-24-2022 ALP [Catalytic activity/Vol] 158 U/L 45-117 [facility] ALT [Catalytic activity/Vol] 34 U/L 13-56 [facility] CO2 [Moles/Vol] 25.0 mmol/L 21.0-32.0 [facility] Globulin (S) [Mass/Vol] 3.9 g/dL 2.2-4.2 [facility] Magnesium [Mass/Vol] 1.9 mg/dL 1.6-2.6 [facility] Natriuretic peptide B (Bld) [Mass/Vol] 602.2 pg/mL 0-100 [facility] Urea nitrogen/Creatinine [Mass ratio] 11.0 mg/mg 10-20 [facility] Laboratory - Hematology and Cell countsOrdered By: Diandra Zuniga on 10-24-2022 Erythrocyte distribution width (RBC) [Entitic vol] 46.3 fL 35.1-43.9 [facility] Erythrocyte distribution width (RBC) [Ratio] 12.5 % 11.6-14.6 [facility] Immature granulocytes/100 WBC (Bld) 0.400 % 0.0-0.9 [facility] Comment on above: IG% - Immature Granu locytes (promyelocytes, myelocytes and metamyelocytes) > 1% indicates that a LEFT SHIFT is Present. MCH (RBC) [Entitic mass] 33.0 pg 27.0-32.0 [facility] Nucleated RBC/100 WBC (Bld) [Ratio] 0 % 0-5 [facility] MCHC Auto (RBC) [Mass/Vol]Or dered By: Diandra Zuniga on 10-24-2022 MCHC (RBC) [Mass/Vol] 33.0 g/dL 32-36 [facility] No Panel InformationOrdered By: Diandra Zuniga on 10-24-2022 Estimated GFR (MDRD) Amer 116 mL/min >60 [facility] Comment on above: GFR Calc Estimated GFR (MDRD) Non-Af Amer 96 mL/min >60 [facility] Comment on above: Non- GFR Calc Platelets bldOrdered By: Toshia Zuniga on 10-24-2022 Platelets (Bld) [#/Vol] 308 10*3/uL 150-450 [facility] Serum or plasma C reactive p rotein measurement (mass/volume)Ordered By: Diandra Zuniga on 10-24-2022 CRP [Mass/Vol] 13.70 mg/L 0.0-3.0 [facility] Comment on above: C-Reactive Protein ( CRP) provides useful information for thediagnosis, therapy and monitoring of inflammatory processesand associated diseases. For the evaluation of Relative Riskfor Cardiovascular Disease, a High Sensitivity CRP (HSCRP)should be ordered. Serum or plasma albumin ollie urement (mass/volume)Ordered By: Diandra Zuniga on 10-24-2022 Albumin [Mass/Vol] 3.8 g/dL 3.2-5.0 [facility] Serum or plasma albumin/glob ulin mass ratioOrdered By: Diandra Zuniga on 10-24-2022 Albumin/Globulin [Mass ratio] 1.0 {ratio} 0.9-2.4 [facility] [facility] Serum or plasma calcium ollie urement (mass/volume)Ordered By: Diandra Zuniga on 10-24-2022 Calcium [Mass/Vol] 9.3 mg/dL 8.5-10.1 [facility] Serum or plasma creatinine m easurement (mass/volume)Ordered By: Diandra Zuniga on 10-24-2022 Creatinine [Mass/Vol] 0.64 mg/dL 0.55-1.02 [facility] Comment on above: The validity of the calculated GFR & GFRAA in patients over 70 years has not been determined. Clinical correlation is essential. Serum or plasma urea nitroge n measurement (mass/volume)Ordered By: Diandra Zuniga on 10-24-2022 Urea nitrogen [Mass/Vol] 7 mg/dL 7-18 [facility] Thin prep Papanicolaou smear with manual screeningOrdered By: Diandraezekiel Zuniga on 10-24-2022 Thin prep Papanicolaou smear with manual screening 33 U/L 1537 [facility] Thin prep Papanicolaou smear with manual screening 10 5-15 [facility] Absolute lymphocyte counton 12-04-2021 Lymphocytes Auto (Unsp spec) [#/Vol] 1.22 10*3/uL 0.83-4.51 [facility] Work Phone: Basophil percentageon 2021 Basophils/100 WBC (Bld) 2.3 % 0-1 [facility] Work Phone: Bilirubin [Mass/Vol] 0.50 mg/dL 0.20-1.00 [facility] Work Phone: Comment on above: For patients on eltr ombopag therapy, use of Dimension [place] TBIL is not recommended. Chloride [Moles/Vol] 105 mmol/L 98-107 [facility] Work Phone: Cholesterol [Mass/Vol] 219 mg/dL <200 [facility] Work Phone: Comment on above: <200 mg/dL Desirable 200-240 mg/dL Borderline >240 mg/dL High Risk Eosinophils/100 WBC (Bld) 4.4 % 0-5 [facility] Work Phone: Glucose [Mass/Vol] 95 mg/dL 74-106 [facility] Work Phone: Neutrophils (Bld) [#/Vol] 2.0 10*3/uL 2.0-7.7 [facility] Work Phone: Neutrophils/100 WBC (Bld) 51.2 % 47-70 [facility] Work Phone: [phone] Potassium [Moles/Vol] 4.9 mmol/L 3.5-5.1 [facility] Work Phone: [phone] Comment on above: Slight Hemolysis, Re sult may be falsely increased. Protein [Mass/Vol] 7.2 g/dL 6.4-8.2 [facility] Work Phone: Sodium [Moles/Vol] 140 mmol/L 136-145 [facility] Work Phone: [phone] Triglyceride [Mass/Vol] 84 mg/dL <199 [facility] Work Phone: [phone] Comment on above: The drugs N-Acetylcy steine and Metamizole may falsely depress this assay.Serum Triglycerides Reference Interval Normal <150 mg/dL Borderline high 150 - 199 mg/dL High 200 - 499 mg/dL Very High > or = 500 mg/dL WBC (Bld) [#/Vol] 3.9 10*3/uL 4.4-11.0 [facility] Work Phone: Blood erythrocytes count (nu mber/volume)on 12-04-2021 RBC (Bld) [#/Vol] 4.35 10*6/uL 4.2-5.4 [facility] Work Phone: Blood hemoglobin measurement (mass/volume)on 12-04-2021 Hemoglobin (Bld) [Mass/Vol] 14.7 g/dL 12.0-15.0 [facility] Work Phone: Blood lymphocytes/100 leukoc yteson 12-04-2021 Lymphocytes/100 WBC (Bld) 31.5 % 19-41 [facility] Work Phone: Blood monocytes/100 leukocyt eson 12-04-2021 Monocytes/100 WBC (Bld) 10.3 % 0-10 [facility] Work Phone: [phone] Blood platelet mean volumeon 12-04-2021 Platelet mean volume (Bld) [Entitic vol] 11.5 fL 6.2-12.0 [facility] Work Phone: [phone] Determination of erythrocyte mean corpuscular volume (MCV)on 12-04-2021 MCV (RBC) [Entitic vol] 104.6 fL 81-99 [facility] Work Phone: [phone] Hematocrit Auto (Bld) [Volum e fraction]on 12-04-2021 Hematocrit (Bld) [Volume fraction] 45.5 % 37-47 [facility] Work Phone: [phone] Laboratory - Chemistry and C hemistry - challengeon 12-04-2021 ALP [Catalytic activity/Vol] 138 U/L 45-117 [facility] Work Phone: [phone] ALT [Catalytic activity/Vol] 25 U/L 13-56 [facility] Work Phone: [phone] CO2 [Moles/Vol] 24.0 mmol/L 21.0-32.0 [facility] Work Phone: [phone] Globulin (S) [Mass/Vol] 3.6 g/dL 2.2-4.2 [facility] Work Phone: [phone] Urea nitrogen/Creatinine [Mass ratio] 13.9 mg/mg 10-20 [facility] Work Phone: [phone] Laboratory - Hematology and Cell countson 12-04-2021 Erythrocyte distribution width (RBC) [Entitic vol] 52.7 fL 35.1-43.9 [facility] Work Phone: [phone] Erythrocyte distribution width (RBC) [Ratio] 13.6 % 11.6-14.6 [facility] Work Phone: [phone] Immature granulocytes/100 WBC (Bld) 0.300 % 0.0-0.9 [facility] Work Phone: [phone] Comment on above: IG% - Immature Granu locytes (promyelocytes, myelocytes and metamyelocytes) > 1% indicates that a LEFT SHIFT is Present. MCH (RBC) [Entitic mass] 33.8 pg 27.0-32.0 [facility] Work Phone: Nucleated RBC/100 WBC (Bld) [Ratio] 0 % 0-5 [facility] Work Phone: [phone] MCHC Auto (RBC) [Mass/Vol]on 12-04-2021 MCHC (RBC) [Mass/Vol] 32.3 g/dL 32-36 [facility] Work Phone: No Panel Informationon 12-04 Estimated GFR (MDRD) Amer 101 mL/min >60 [facility] Work Phone: Comment on above: GFR Calc Estimated GFR (MDRD) Non-Af Amer 84 mL/min >60 [facility] Work Phone: Comment on above: Non- GFR Calc Platelets bldon 12-04-2021 Platelets (Bld) [#/Vol] 435 10*3/uL 150-450 [facility] Work Phone: [phone] Serum or plasma albumin ollie urement (mass/volume)on 12-04-2021 Albumin [Mass/Vol] 3.6 g/dL 3.2-5.0 [facility] Work Phone: Serum or plasma albumin/glob ulin mass ratioon 12-04-2021 Albumin/Globulin [Mass ratio] 1.0 {ratio} 0.9-2.4 [facility] Work Phone: [phone] Serum or plasma calcium ollie urement (mass/volume)on 12-04-2021 Calcium [Mass/Vol] 9.2 mg/dL 8.5-10.1 [facility] Work Phone: [phone] Serum or plasma cholesterol in HDL measurement (mass/volume)on 12-04-2021 Cholesterol in HDL [Mass/Vol] 96 mg/dL >40 [facility] Work Phone: Comment on above: The drugs N-Acetylcy steine and Metamizole may falsely depress this assay. Reference Range HDL <40 mg/dL Low HDL Cholesterol HDL >or= 60 mg/dL High HDL Cholesterol Serum or plasma cholesterol in VLDL measurement (mass/volume)on 12-04-2021 Cholesterol in VLDL [Mass/Vol] 17 mg/dL 5-40 [facility] Work Phone: Serum or plasma creatinine m easurement (mass/volume)on 12-04-2021 Creatinine [Mass/Vol] 0.72 mg/dL 0.55-1.02 [facility] Work Phone: Comment on above: The validity of the calculated GFR & GFRAA in patients over 70 years has not been determined. Clinical correlation is essential. Serum or plasma low density lipoprotein (LDL) cholesterol measurement (mass/volume)on 12-04-2021 Cholesterol in LDL [Mass/Vol] 106 mg/dL 0-130 [facility] Work Phone: Serum or plasma urea nitroge n measurement (mass/volume)on 12-04-2021 Urea nitrogen [Mass/Vol] 10 mg/dL 7-18 [facility] Work Phone: Thin prep Papanicolaou smear with manual screeningon 12-04-2021 Thin prep Papanicolaou smear with manual screening 29 U/L 15-37 [facility] Work Phone: Comment on above: Slight Hemolysis, Re sult may be falsely increased. Thin prep Papanicolaou smear with manual screening 11 5-15 [facility] Work Phone: ALANNAH SCREENING W [facility] 09-29 [facility] PROGRESSon 08-11-2019 PROGRESS HNO ID: [id number] Author: [facility] Service: ? Author Type: Physician Type: Progress [...] She did well until diagnostic mammogram in [facility] showed a new left 1.5 cm mass; [...] breast cancer, ELBA; DCIS ? ? Normal [facility] CRISELDA STORM ([id number]) 1945 F Date Time Provider Department 02/06/19 [...] She did well until diagnostic mammogram in [facility] showed a new left 1.5 cm mass; [...] [facility] PRO[facility]ESSon 02-06-2019 PROGRESS HNO ID: [id number] Author: Vanessa Champagne Service: ? Author Type: [...] She did well until diagnostic mammogram in [facility] showed a new left 1.5 cm mass; [...] history of right breast cancer, ELBA Normal [facility] Vital Signs Date Time Vital Sign Value Performing Clinician Facility 11-03-2024 09:02-0400 Body height 162.[address] Rachna Acosta DO Work Phone: [facility] 11-03-2024 09:02-0400 Body mass index (BMI) [Ratio] 19.6 kg/m2 Dr. Rachna Acosta DO Work Phone: [facility] 11-03-2024 09:02-0400 Body weight 52.[address] Rachna Acosta DO Work Phone: [facility] 11-03-2024 09:02-0400 Diastolic blood pressure 59 mm[Hg] Dr. Rachna Acosta DO Work Phone: [facility] 11-03-2024 09:02-0400 Heart rate 59 /min Dr. Rachna Acosta DO Work Phone: [facility] 11-03-2024 09:02-0400 Respiratory rate 16 /min Dr. Rachna Acosta DO Work Phone: [facility] 11-03-2024 09:02-0400 Systolic blood pressure 99 mm[Hg] Dr. Rachna Acosta DO Work Phone: [facility] 08-18-2024 09:29-0400 Body height 162.[address] Rachna Acosta DO Work Phone: [facility] 08-18-2024 09:29-0400 Body mass index (BMI) [Ratio] 19.6 kg/m2 Dr. Rachna Acosta DO Work Phone: [facility] 08-18-2024 09:29-0400 Body weight 52.[address] Rachna Acosta DO Work Phone: [facility] 08-18-2024 09:29-0400 Diastolic blood pressure 63 mm[Hg] Dr. Rachna Acosta DO Work Phone: [facility] 08-18-2024 09:29-0400 Heart rate 76 /min Dr. Rachna Acosta DO Work Phone: [facility] 08-18-2024 09:29-0400 Respiratory rate 16 /min Dr. Rachna Acosta DO Work Phone: [facility] 08-18-2024 09:29-0400 Systolic blood pressure 100 mm[Hg] Dr. Rachna Acosta DO Work Phone: [facility] 08-14-2024 08:49-0400 Diastolic blood pressure 69 mm[Hg] Dr. Rachna Acosta DO Work Phone: [facility] 08-14-2024 08:49-0400 Heart rate 80 /min Dr. Rachna Acosta DO Work Phone: [facility] 08-14-2024 08:49-0400 Respiratory rate 18 /min Dr. Rachna Acosta DO Work Phone: [facility] 08-14-2024 08:49-0400 Systolic blood pressure 126 mm[Hg] Dr. Rachna Acosta DO Work Phone: [facility] 07-16-2024 12:18-0400 Diastolic blood pressure 56 mm[Hg] Emeterio Malcolm DO Work Phone: [facility] 07-16-2024 12:18-0400 Systolic blood pressure 98 mm[Hg] Emeterio Malcolm DO Work Phone: [facility] 07-16-2024 12:13-0400 Body weight 51.26 kg Emeterio Malcolm DO Work Phone: [facility] 07-16-2024 12:13-0400 Heart rate 61 /min Emeterio Malcolm DO Work Phone: [facility] 06-03-2024 09:08-0400 Diastolic blood pressure 64 mm[Hg] Dr. Rachna Acosta DO Work Phone: [facility] 06-03-2024 09:08-0400 Heart rate 84 /min Dr. Rachna Acosta DO Work Phone: [facility] 06-03-2024 09:08-0400 Respiratory rate 18 /min Dr. Rachna Acosta DO Work Phone: [facility] 06-03-2024 09:08-0400 Systolic blood pressure 115 mm[Hg] Dr. Rachna Acosta DO Work Phone: [facility] 06-03-2024 08:42-0400 Body temperature 97.5 [degF] Dr. Rachna Acosta DO Work Phone: [facility] 05-31-2024 18:57-0400 Body temperature 98.2 [degF] Dr. Rachna Acosta DO Work Phone: [facility] 05-31-2024 18:57-0400 Diastolic blood pressure 75 mm[Hg] Dr. Rachna Acosta DO Work Phone: [facility] 05-31-2024 18:57-0400 Heart rate 77 /min Dr. Rachna Acosta DO Work Phone: [facility] 05-31-2024 18:57-0400 Respiratory rate 18 /min Dr. Rachna Acosta DO Work Phone: [facility] 05-31-2024 18:57-0400 SaO2% (BldA) [Mass fraction] 92 % Dr. Rachna Acosta DO Work Phone: [facility] 05-31-2024 18:57-0400 Systolic blood pressure 123 mm[Hg] Dr. Rachna Acosta DO Work Phone: [facility] 05-31-2024 16:16-0400 Body height 162.[address] Rachna Acosta DO Work Phone: [facility] 05-31-2024 16:16-0400 Body mass index (BMI) [Ratio] 20.9 kg/m2 Dr. Rachna Acosta DO Work Phone: [facility] 05-31-2024 16:16-0400 Body weight 55.[address] Rachna Acosta DO Work Phone: [facility] 03-06-2024 08:32-0500 Body mass index (BMI) [Ratio] 19.7 kg/m2 Dr. Rachna Acosta DO Work Phone: [facility] 03-06-2024 08:32-0500 Body weight 52.[address] Rachna Acosta DO Work Phone: [facility] 03-06-2024 08:32-0500 Diastolic blood pressure 63 mm[Hg] Dr. Rachna Acosta DO Work Phone: [facility] 03-06-2024 08:32-0500 Heart rate 68 /min Dr. Rachna Acosta DO Work Phone: [facility] 03-06-2024 08:32-0500 Respiratory rate 18 /min Dr. Rachna Acosta DO Work Phone: [facility] 03-06-2024 08:32-0500 SaO2% (BldA) [Mass fraction] 96 % Dr. Rachna Acosta DO Work Phone: [facility] 03-06-2024 08:32-0500 Systolic blood pressure 105 mm[Hg] Dr. Rachna Acosta DO Work Phone: [facility] 10-03-2023 11:58-0400 Body height 165.1 cm Luis F Lawrence ELECTROMEDICAL SERVICE ENGINEER.TRANSPLANT IMMUNOLOGIST Work Phone: [facility] 10-03-2023 11:58-0400 Body mass index (BMI) [Ratio] 18.8 kg/m2 Luis F Lawrence ELECTROMEDICAL SERVICE ENGINEER.TRANSPLANT IMMUNOLOGIST Work Phone: [facility] 10-03-2023 11:58-0400 Body weight 51.26 kg Luis F Lawrence ELECTROMEDICAL SERVICE ENGINEER.TRANSPLANT IMMUNOLOGIST Work Phone: [facility] 10-03-2023 11:58-0400 Diastolic blood pressure 52 mm[Hg] Luis F Lawrence ELECTROMEDICAL SERVICE ENGINEER.TRANSPLANT IMMUNOLOGIST Work Phone: [facility] 10-03-2023 11:58-0400 Heart rate 58 /min Luis F Lawrence ELECTROMEDICAL SERVICE ENGINEER.TRANSPLANT IMMUNOLOGIST Work Phone: [facility] 10-03-2023 11:58-0400 Systolic blood pressure 98 mm[Hg] Luis F Lawrence ELECTROMEDICAL SERVICE ENGINEER.TRANSPLANT IMMUNOLOGIST Work Phone: [facility] 06-26-2023 15:49-0400 Body height 161.3 cm Tisha Van ELECTROMEDICAL SERVICE ENGINEER.TRANSPLANT IMMUNOLOGIST Work Phone: [facility] 06-26-2023 15:49-0400 Body mass index (BMI) [Ratio] 21.8 kg/m2 Tisha Van ELECTROMEDICAL SERVICE ENGINEER.TRANSPLANT IMMUNOLOGIST Work Phone: [facility] 06-26-2023 15:49-0400 Body weight 56.7 kg Tisha Van ELECTROMEDICAL SERVICE ENGINEER.TRANSPLANT IMMUNOLOGIST Work Phone: [facility] 06-26-2023 15:49-0400 Diastolic blood pressure 68 mm[Hg] Tisha Van ELECTROMEDICAL SERVICE ENGINEER.TRANSPLANT IMMUNOLOGIST Work Phone: [facility] 06-26-2023 15:49-0400 Heart rate 60 /min Tisha Van ELECTROMEDICAL SERVICE ENGINEER.TRANSPLANT IMMUNOLOGIST Work Phone: [facility] 06-26-2023 15:49-0400 Systolic blood pressure 130 mm[Hg] Tisha Van ELECTROMEDICAL SERVICE ENGINEER.TRANSPLANT IMMUNOLOGIST Work Phone: [facility] 04-09-2023 10:22-0500 Body height 163.8 cm Bear Rodarte MD Work Phone: [facility] 04-09-2023 10:22-0500 Body weight 61.24 kg Bear Rodarte MD Work Phone: [facility] 04-09-2023 10:22-0500 Diastolic blood pressure 62 mm[Hg] Bear Rodarte MD Work Phone: [facility] 04-09-2023 10:22-0500 Heart rate 50 /min Bear Rodarte MD Work Phone: [facility] 04-09-2023 10:22-0500 Systolic blood pressure 100 mm[Hg] Bear Rodarte MD Work Phone: [facility] 03-01-2023 12:49-0500 Body height 162.[address] Rachna Acosta Work Phone: [facility] 03-01-2023 12:49-0500 Body mass index (BMI) [Ratio] 22.6 kg/m2 Dr. Rachna Acosta Work Phone: [facility] 03-01-2023 12:49-0500 Body weight 59.[address] Rachna Acosta Work Phone: [facility] 03-01-2023 12:49-0500 Diastolic blood pressure 79 mm[Hg] Dr. Rachna Acosta Work Phone: [facility] 03-01-2023 12:49-0500 Heart rate 99 /min Dr. Rachna Acosta Work Phone: [facility] 03-01-2023 12:49-0500 Respiratory rate 18 /min Dr. Rachna Acosta Work Phone: [facility] 03-01-2023 12:49-0500 SaO2% (BldA) [Mass fraction] 98 % Dr. Rachna Acosta Work Phone: [facility] 03-01-2023 12:49-0500 Systolic blood pressure 116 mm[Hg] Dr. Rachna Acosta Work Phone: [facility] 02-21-2023 11:21-0500 Body height 162.[address] Rachna Acosta Work Phone: [facility] 02-21-2023 11:21-0500 Body weight 60.[address] Rachna Acosta Work Phone: [facility] 02-20-2023 09:57-0500 Body mass index (BMI) [Ratio] 22.8 kg/m2 Dr. Rachna Acosta Work Phone: [facility] 01-15-2023 07:29-0500 Body height 162.[address] Rachna Acosta Work Phone: [facility] 01-15-2023 07:29-0500 Body weight 58.[address] Rachna Acosta Work Phone: [facility] 01-14-2023 08:38-0500 Body mass index (BMI) [Ratio] 22.1 kg/m2 Dr. Rachna Acosta Work Phone: [facility] 12-26-2022 12:22-0500 Body temperature 97 [degF] Dr. Rachna Acosta Work Phone: [facility] 12-26-2022 12:22-0500 Diastolic blood pressure 88 mm[Hg] Dr. Rachna Acosta Work Phone: [facility] 12-26-2022 12:22-0500 Heart rate 83 /min Dr. Rachna Acosta Work Phone: [facility] 12-26-2022 12:22-0500 Respiratory rate 18 /min Dr. Rachna Acosta Work Phone: [facility] 12-26-2022 12:22-0500 SaO2% (BldA) [Mass fraction] 99 % Dr. Rachna Acosta Work Phone: [facility] 12-26-2022 12:22-0500 Systolic blood pressure 143 mm[Hg] Dr. Rachna Acosta Work Phone: [facility] 12-20-2022 11:43-0400 Body height 162.[address] Rachna Acosta Work Phone: [facility] 12-20-2022 11:34-0400 Body mass index (BMI) [Ratio] 22.1 kg/m2 Dr. Rachna Acosta Work Phone: [facility] 12-20-2022 11:34-0400 Body weight 58.[address] Rachna Acosta Work Phone: [facility] 12-20-2022 11:34-0400 Diastolic blood pressure 84 mm[Hg] Dr. Rachna Acosta Work Phone: [facility] 12-20-2022 11:34-0400 Heart rate 114 /min Dr. Rachna Acosta Work Phone: [facility] 12-20-2022 11:34-0400 Respiratory rate 18 /min Dr. Rachna Acosta Work Phone: [facility] 12-20-2022 11:34-0400 Systolic blood pressure 117 mm[Hg] Dr. Rachna Acosta Work Phone: [facility] 11-27-2022 07:48-0400 Body weight 60.[address] Rachna Acosta Work Phone: [facility] 11-26-2022 08:06-0400 Body mass index (BMI) [Ratio] 22.8 kg/m2 Dr. Rachna Acosta Work Phone: [facility] 11-22-2022 13:12-0400 Body mass index (BMI) [Ratio] 22.8 kg/m2 Dr. Rachna Acosta Work Phone: [facility] 11-22-2022 13:12-0400 Body weight 60.[address] Rachna Acosta Work Phone: [facility] 11-22-2022 13:12-0400 Diastolic blood pressure 73 mm[Hg] Dr. Rachna Acosta Work Phone: [facility] 11-22-2022 13:12-0400 Heart rate 102 /min Dr. Rachna Acosta Work Phone: [facility] 11-22-2022 13:12-0400 Respiratory rate 18 /min Dr. Rachna Acosta Work Phone: [facility] 11-22-2022 13:12-0400 SaO2% (BldA) [Mass fraction] 96 % Dr. Rachna Acosta Work Phone: [facility] 11-22-2022 13:12-0400 Systolic blood pressure 107 mm[Hg] Dr. Rachna Acosta Work Phone: [facility] 11-02-2022 10:04-0400 Body height 162.[address] Rachna Acosta Work Phone: [facility] 11-02-2022 10:04-0400 Body mass index (BMI) [Ratio] 23.5 kg/m2 Dr. Rachna Acosta Work Phone: [facility] 11-02-2022 10:04-0400 Body weight 62.[address] Rachna Acosta Work Phone: [facility] 11-02-2022 10:04-0400 Diastolic blood pressure 89 mm[Hg] Dr. Rachna Acosta Work Phone: [facility] 11-02-2022 10:04-0400 Heart rate 148 /min Dr. Rachna Acosta Work Phone: [facility] 11-02-2022 10:04-0400 Respiratory rate 20 /min Dr. Rachna Acosta Work Phone: [facility] 11-02-2022 10:04-0400 Systolic blood pressure 114 mm[Hg] Dr. Rachna Acosta Work Phone: [facility] 06-19-2022 13:54-0400 Body height 165.1 cm Abhishek Andrews MD Work Phone: [facility] 06-19-2022 13:54-0400 Body mass index (BMI) [Ratio] 23.7 kg/m2 Abhishek Andrews MD Work Phone: [facility] 06-19-2022 13:54-0400 Body temperature 98.01 [degF] Abhishek Andrews MD Work Phone: [facility] 06-19-2022 13:54-0400 Body weight 64.59 kg Abhishek Andrews MD Work Phone: [facility] Encounters Encounter Date Encounter Type Care Provider Facility Start: 12-25-2024 End: 12-25-2024 ambulatory Rachna Acosta Facility:[facility] Start: 11-03-2024 End: 11-03-[address] Rachna Acosta DO Work Phone: -Radiology [facility] Start: 11-03-2024 End: 11-03-2024 Patient encounter procedure Cinthia Kim [employer]-C -Radiology [facility] Work Phone: Start: 11-03-2024 End: 11-03-2024 Patient encounter procedure Cinthia Kim [employer]-C -[facility] Work Phone: Start: 11-03-2024 End: 11-03-[address] Rachna Acosta DO Work Phone: -[facility] Start: 11-03-2024 End: 11-03-2024 ambulatory Cinthia Kim NP Facility:[facility] Start: 10-01-2024 End: 10-01-[address] Rachna Acosta DO Work Phone: -Laboratory Start: 10-01-2024 End: 10-01-2024 Patient encounter procedure Cinthia Huntley Julio [employer]-C -Laboratory Work Phone: Start: 10-01-2024 End: 10-01-2024 ambulatory Cinthia Kim [employer] Facility:[facility] Start: 09-01-2024 End: 09-01-[address] Rachna Acosta DO Work Phone: -Radiology [facility] Start: 09-01-2024 End: 09-01-2024 Patient encounter procedure Cinthia Huntley Julio [employer]-C -Radiology [facility] Work Phone: Start: 09-01-2024 End: 09-01-2024 ambulatory Cinthia Kim [employer] Facility:[facility] Start: 08-18-2024 End: 08-18-[address] Rachna Acosta DO Work Phone: -Radiology [facility] Start: 08-18-2024 End: 08-18-2024 Patient encounter procedure Cinthia Huntley Julio [employer]-C -Radiology [facility] Work Phone: Start: 08-18-2024 End: 08-18-2024 Patient encounter procedure Cinthia Huntley Julio [employer]-C -[facility] Work Phone: Start: 08-18-2024 End: 08-18-[address] Rachna Acosta DO Work Phone: -[facility] Start: 08-18-2024 End: 08-18-2024 ambulatory Cinthia Kim [employer] Facility:[facility] Start: 08-14-2024 End: 08-14-[address] Rachna Acosta DO Work Phone: -Ultrasound [facility] Start: 08-14-2024 End: 08-14-[address] Rachna Acosta DO Work Phone: -Ultrasound [facility] Work Phone: Start: 08-14-2024 End: 08-14-2024 ambulatory Rachna Acosta Facility:[facility] Start: 08-10-2024 ambulatory Rachna Acosta Facility:[facility] Start: 07-29-2024 End: 08-04-2024 Telephone encounter Emeterio Malcolm DO Work Phone: [facility] [place] Comment on above: Results Start: 07-22-2024 End: 07-22-2024 Subsequent hospital visit by physician Emeterio Malcolm DO Work Phone: [facility] Comment on above: Recurrent pleural ef fusion Start: 07-22-2024 End: 07-22-2024 ambulatory EMETERIO MALCOLM [facility] Start: 07-16-2024 End: 07-16-2024 Office consultation new/estab patient 60 min Emeterio Malcolm DO Work Phone: [facility] Comment on above: Pleural effusion on left (Primary Dx); Chronic combined systolic (congestive) and diastolic (congestive) heart failure (HCC); Atrial fibrillation, unspecified type (HCC) Start: 07-16-2024 End: 07-16-2024 ambulatory EMETERIO MALCOLM [facility] Start: 06-24-2024 End: 06-24-[address] Rachna Acosta DO Work Phone: [facility] Work Phone: Start: 06-24-2024 End: 06-24-[address] Rachna Acosta DO -Laboratory, [place] Work Phone: Start: 06-24-2024 End: 06-24-2024 ambulatory Rachna Acosta Facility:[facility] Start: 06-03-2024 ambulatory Amanda Green Facility: [facility] Start: 06-03-2024 Non-patient / Non-visit Amanda mcdowell NP-C -[facility] Start: 06-03-2024 End: 06-03-[address] Rachna Acosta DO -Ultrasound, [facility] Work Phone: Start: 06-03-2024 End: 06-03-2024 ambulatory Rachna Acosta Facility:[facility] Start: 05-31-2024 End: 05-31-2024 Emergency department patient visit Dr. Rachna Acosta DO Work Phone: -Emergency Department Work Phone: Start: 04-30-2024 End: 04-30-2024 ambulatory RACHNA ACOSTA Facility:[facility] Start: 04-30-2024 End: 04-30-2024 Subsequent hospital visit by physician Screen Mammo [facility] Start: 03-26-2024 End: 03-26-2024 Patient encounter procedure Faith DUMONT -[facility] Work Phone: Start: 03-26-2024 End: 03-26-2024 ambulatory Rachna Acosta Facility:[facility] Start: 03-23-2024 End: 03-23-2024 Patient encounter procedure Hazel DUMONT -Laboratory Work Phone: Start: 03-23-2024 End: 03-23-2024 ambulatory Rachna Acosta Facility:[facility] Start: 03-19-2024 ambulatory Marcelo Berry Facility:[facility] Start: 03-19-2024 Non-patient / Non-visit Dr. Justin COLLADO -[facility] Start: 03-19-2024 End: 03-19-2024 Patient encounter procedure Hazel DUMONT -Cardiovascular Services Work Phone: Start: 03-19-2024 End: 03-19-2024 ambulatory Rachna Acosta Facility:[facility] Start: 03-17-2024 End: 03-17-[address] Rachna Acosta DO -Ultrasound, [facility] Work Phone: Start: 03-17-2024 End: 03-17-2024 ambulatory Rachna Acosta Facility:[facility] Start: 03-12-2024 ambulatory Rachna Acosta Facility:[facility] Start: 03-09-2024 End: 03-09-[address] Rachna Acosta DO -Cat Scan, [facility] Work Phone: Start: 03-09-2024 End: 03-09-2024 ambulatory Rachna Acosta Facility:[facility] Start: 03-06-2024 End: 03-06-2024 Patient encounter procedure Hazel Denson ND -[facility] Work Phone: Start: 03-06-2024 End: 03-06-2024 ambulatory Rachna Acosta Facility:[facility] Start: 10-03-2023 End: 10-03-2023 Patient encounter procedure Luis F Lawrence ELECTROMEDICAL SERVICE ENGINEER.TRANSPLANT IMMUNOLOGIST Work Phone: Cardiology Comment on above: Typical atrial flutt er (HCC) (Primary Dx); Persistent atrial fibrillation (HCC); On apixaban therapy; Mixed hyperlipidemia Start: 10-03-2023 End: 10-04-2023 ambulatory LUIS F BRAVO Facility:[facility] Start: 09-16-2023 Patient encounter procedure Bear Rodarte MD Work Phone: [facility] Start: 09-16-2023 Recurring Plan Bear reddy MD Work Phone: [facility] Start: 09-06-2023 Patient encounter procedure Bear Rodarte MD Work Phone: [facility] Start: 09-06-2023 Recurring Plan Bear reddy MD Work Phone: [facility] Start: 09-03-2023 E-mail encounter fro m caregiver Tish Dougherty APRN.TRANSPLANT IMMUNOLOGIST Work Phone: [facility] Start: 09-03-2023 Follow-up encounter Tish Dougherty APRN.TRANSPLANT IMMUNOLOGIST Work Phone: [facility] Comment on above: Actionable Finding F ollow up Start: 08-29-2023 Patient encounter procedure Bear Rodarte MD Work Phone: [facility] Start: 08-29-2023 Recurring Plan Bear reddy MD Work Phone: [facility] Start: 08-20-2023 Patient encounter procedure Bear Rodarte MD Work Phone: [facility] Start: 08-20-2023 Recurring Plan Bear reddy MD Work Phone: [facility] Start: 08-16-2023 Patient encounter procedure Bear Rodarte MD Work Phone: [facility] Start: 08-16-2023 Recurring Plan Bear reddy MD Work Phone: [facility] Start: 08-07-2023 Patient encounter procedure Bear Rodarte MD Work Phone: [facility] Start: 08-07-2023 Recurring Plan Bear reddy MD Work Phone: [facility] Start: 08-02-2023 E-mail encounter fro m caregiver Tish Dougherty APRN.TRANSPLANT IMMUNOLOGIST Work Phone: [facility] Start: 08-02-2023 Follow-up encounter Tish Dougherty APRN.TRANSPLANT IMMUNOLOGIST Work Phone: [facility] Comment on above: Actionable Finding f ollow up Start: 08-02-2023 Patient encounter procedure Bear Rodarte MD Work Phone: [facility] Start: 08-02-2023 Recurring Plan Bear reddy MD Work Phone: [facility] Start: 07-26-2023 Patient encounter procedure Bear Rodarte MD Work Phone: [facility] Start: 07-26-2023 Recurring Plan Bear reddy MD Work Phone: [facility] Start: 07-25-2023 ambulatory [facility] Start: 07-17-2023 ambulatory [facility]ole [facility] Start: 07-17-2023 Patient encounter procedure Bear Rodarte MD Work Phone: [facility] Start: 07-17-2023 Recurring Plan Bear reddy MD Work Phone: [facility] Start: 07-10-2023 ambulatory Deisy Clemente APRN.TRANSPLANT IMMUNOLOGIST Work Phone: Pulmonary Medicine Comment on above: Lung Nodule Actionab le Findings Outreach Encounter Start: 07-10-2023 Patient encounter procedure Bear Rodarte MD Work Phone: [facility] Start: 07-10-2023 Recurring Plan Bear reddy MD Work Phone: [facility] Start: 07-05-2023 ambulatory Carole [facility] Start: 07-04-2023 ambulatory Bear reddy MD Work Phone: Cardiology Comment on above: Transmitter (90 days ) Start: 07-04-2023 Telephone encounter Ani GANNON Comment on above: Follow Up Phone Call (Relate care discharge follow up-[id number] clear) Start: 07-03-2023 End: 07-03-2023 ambulatory Evette Hall PA-C Work Phone: Pulmonary Medicine Start: 07-02-2023 ambulatory Bear reddy MD Work Phone: Cardiology Comment on above: Patient Education (E PS - PVI/ AFL RFA) Start: 06-26-2023 End: 06-26-2023 Patient encounter procedure Tisha Araujo APRN.TRANSPLANT IMMUNOLOGIST Work Phone: Cardiology Comment on above: Persistent atrial fi brillation (HCC) (Primary Dx); Nonischemic cardiomyopathy (HCC); On amiodarone therapy Start: 06-26-2023 End: 06-26-2023 Subsequent hospital visit by physician Callie Juarez (I-Stat) Work Phone: Radiology Comment on above: Atrial fibrillation, persistent (HCC) [I48.19] Start: 06-26-2023 End: 06-26-2023 ambulatory BEAR RODARTE Facility:[facility] Start: 06-12-2023 Telephone encounter Bear Rodarte MD Work Phone: Cardiology Comment on above: Procedure (EP: PVI/A FL RFA (offered sooner date)) Start: 05-29-2023 End: 05-29-2023 ambulatory RACHNA ACOSTA Facility:[facility] Start: 05-24-2023 Telephone encounter Bear Rodarte MD Work Phone: Cardiology Comment on above: Procedure (EP: PVI/A FL RFA) Start: 05-14-2023 ambulatory Bear reddy MD Work Phone: [facility] Start: 05-14-2023 Follow-up encounter Bear Rodarte MD Work Phone: Cardiology Comment on above: follow up Start: 05-02-2023 Telephone encounter Bear Rodarte MD Work Phone: Cardiology Start: 05-01-2023 ambulatory Bear reddy MD Work Phone: [facility] Start: 05-01-2023 Follow-up encounter Bear [...] encounter procedure Dr. Rachna Acosta Work Phone: [facility] Work Phone: Start: 02-28-2023 End: 02-28-[address] Rachna Acosta Work Phone: [facility] Work Phone: Start: 02-28-2023 End: 02-28-[address] Rachna Acosta Work Phone: [facility]-Laboratory Work Phone: Start: 02-21-2023 Non-patient / Non-visit Dr. Michelle Acosta Work Phone: [facility] Start: 02-21-2023 End: 02-21-2023 Admission to same day surgery center Dr. Rachna [facility]osta [facility] Work Phone: Start: 02-21-2023 End: 02-21-[address] Rachna Acosta Work Phone: [facility] Work Phone: Start: 02-14-2023 Non-patient / Non-visit Dr. Michelle Acosta Work Phone: [facility] Start: 01-15-2023 End: 01-15-2023 Admission to same day surgery center Dr. Rachna Acosta [facility] Work Phone: Start: 01-15-2023 End: 01-15-[address] Rachna Acosta Work Phone: [facility] Work Phone: Start: 12-26-2022 End: 12-26-2022 Emergency department patient visit Dr. Rachna Acosta Work Phone: [facility]-Emergency Department Work Phone: Start: 12-20-2022 End: 12-20-[address] Rachna Acosta Work Phone: [facility] Work Phone: Start: 12-20-2022 End: 12-20-[address] Rachna Acosta Work Phone: [facility] Work Phone: Start: 12-03-2022 End: 12-03-[address] Rachna Acosta Work Phone: [facility] Work Phone: Start: 11-27-2022 Non-patient / Non-visit Dr. Michelle Acosta Work Phone: [facility] Start: 11-27-2022 End: 11-27-2022 Admission to same day surgery center Dr. Rachna Acosta Work Phone: [facility]-Geospatial Technician/Special Procedures Work Phone: Start: 11-22-2022 End: 11-22-[address] Rachna Acosta Work Phone: [facility] Work Phone: Start: 11-08-2022 Non-patient / Non-visit Dr. Michelle Acosta Work Phone: [facility] Start: 11-08-2022 End: 11-08-[address] Rachna Acosta Work Phone: [facility]-Cardiovascular Services Work Phone: Start: 11-02-2022 End: 11-02-[address] Rachna Acosta Work Phone: [facility] Work Phone: Start: 10-29-2022 End: 10-29-[address] Rachna Acosta Work Phone: [facility] Work Phone: Start: 10-29-2022 End: 10-29-2022 Patient encounter procedure [facility]-Radiology, [place] Work Phone: Start: 10-25-2022 End: 10-25-2022 ambulatory [facility] Work Phone: Start: 10-25-2022 End: 10-25-2022 Patient encounter procedure [facility]-Cat Scan, [facility] Work Phone: Start: 10-24-2022 End: 10-24-2022 ambulatory [facility] Work Phone: Start: 10-24-2022 End: 10-24-2022 [facility]: Start: 10-09-2022 End: 10-09-2022 ambulatory [facility] Work Phone: Start: 10-09-2022 End: 10-09-2022 Patient encounter procedure [facility]-Radiology, [facility] Work Phone: Start: 07-19-2022 End: 07-19-2022 ambulatory [facility] Work Phone: Start: 07-19-2022 End: 07-19-2022 Patient encounter procedure [facility]-Radiology, [facility] Start: 06-21-2022 ambulatory RACHNA ACOSTA [facility] Start: 06-19-2022 End: 06-19-2022 ambulatory ABHISHEK ANDREWS [facility] Amb[facility] Start: 06-19-2022 End: 06-19-2022 Office outpatient visit 15 minutes Abhishek Andrews MD Work Phone: [facility] [place] Comment on above: Sensorineural hearin g loss, bilateral (Primary Dx); Impacted cerumen of right ear; Impaired auditory discrimination, right Start: 12-04-2021 End: 12-04-2021 ambulatory [facility] Work Phone: Start: 12-04-2021 End: 12-04-2021 [facility] Start: 09-29-2021 Documentation procedure Mammog jonh Coordinator [facility] Start: 09-29-2021 Letter encounter Mammography Coordinator [facility] Start: 09-29-2021 End: 09-29-2021 Subsequent hospital visit by physician Screen Mammo [facility] Start: 08-01-2018 Patient encounter procedure VANESSA H REHMUS Facility:[facility] Start: 02-03-2018 End: 02-03-2018 Patient encounter procedure VANESSA H REHMUS Facility:[facility] Start: 12-24-2017 Patient encounter procedure VANESSA H REHMUS Facility:[facility] Start: 07-09-2017 End: 07-09-2017 Patient encounter procedure VANESSA H REHMUS Facility:[facility] Procedures Date Procedure Procedure Detail Performing [...] Speci men Type: BLOOD SPECIMEN Ordering Facility: [facility] Address: [address] [place] [address] Performed By: #### [id number] #### [facility] CLIA [id number] [address] [place] [address] [place] [address] [place] Start: 12-26-2022 Radiography [...] Author Start: 07-02-2026 Diabetes Screening Diabetes Screenin [facility] Start: 05-28-2026 Diabetes Screening Diabetes Screenin [facility] Start: 07-30-2024 End: 07-30-2025 Thoracentesis Thoracentesis PFT Routine Recurrent pleural effusion Pleural effusion on left Expected: 07/30/2024 (Approximate), Expires: 07/30/2025 [facility] Work Phone: Comment on above: Expected: 07/30/2024 (Approximate), Expires: 07/30/2025 Start: 07-22-2024 End: 07-22-2024 Patient encounter procedure 07/22/2024 12:45 PM EDT Appointment [facility] [address] [place] [address] Emeterio Malcolm DO [address] [place] [address] [facility] [address] Start: 06-03-2024 [facility] Start: 06-03-2024 Vital signs measurements [facility] Start: 05-31-2024 [facility] Start: 05-31-2024 [facility] Start: 02-19-2024 Advance Directive Discussion Advance Directive Discussion [facility] Start: 02-19-2024 Medicare Advantage A nnual Wellness Visit Medicare Advantage Annual Wellness Visit [facility] Start: 10-28-2023 End: 10-28-2023 Patient encounter procedure 10/28/2023 12:00 PM EDT Office Visit Cardiology [address] [place] [address] Mariella Yancey, ELECTROMEDICAL SERVICE ENGINEER.TRANSPLANT IMMUNOLOGIST [address] [place] [address] DX 3-4 MTH PVI Cardiology Comment on above: DX 3-4 MTH PVI Start: 10-20-2023 Covid-19 Vaccine ( season) Covid-19 Vaccine ( season) [facility] Start: 10-20-2023 Influenza vaccination Influenza Vacc ine (#1) [facility] Start: 10-03-2023 End: 10-03-2023 Patient encounter procedure 10/03/2023 12:00 PM EDT Office Visit Cardiology [address] [place] [address] Luis F Bravo, ELECTROMEDICAL SERVICE ENGINEER.TRANSPLANT IMMUNOLOGIST [address] [place] [address] DX 3-4 MTH PVI Cardiology Comment on above: DX 3-4 MTH PVI Start: 10-03-2023 End: 10-03-2023 ambulatory 10/03/2023 11:15 AM EDT Results Only Cardiology [address] [place] [address] DX 3-4 MTH PVI Cardiology Comment on above: DX 3-4 MTH PVI Start: 07-24-2023 End: 07-24-2023 Admission to same day surgery center 07/24/2023 1:00 PM EDT - 07/24/2023 6:00 PM EDT Surgery HOSP EP Lab [address] [place] [address] Bear Rodarte MD [address] [place] [address] COMPLETE EPS W/PVI ABL W/WO 3D MAP [...] EDT Hospital Encounter HOSP EP Lab [address] [place] [address] Bear Rodarte MD [address] [place] [address] Paroxysmal atrial fibrillation (HCC) [I48.0] HOSP EP Lab Comment on above: Paroxysmal atrial fi brillation (HCC) [I48.0] Start: 07-24-2023 End: 07-24-2023 Patient encounter procedure Admitting Comment on above: PVI ABLATION Start: 07-03-2023 End: 07-03-2023 Admission to same day surgery center 07/03/2023 1:00 PM EDT - 07/03/2023 6:00 PM EDT Surgery HOSP EP Lab [address] [place] [address] Bear Rodarte MD [address] [place] [address] COMPLETE EPS W/PVI ABL W/WO 3D MAP ICE HOSP EP Lab Comment on above: COMPLETE EPS W/PVI A BL W/WO 3D MAP ICE Start: 07-03-2023 Subsequent hospital visit by physician 07/03/2023 1:00 PM EDT Hospital Encounter HOSP EP Lab [address] [place] [address] Bear Rodarte MD [address] [place] [address] Paroxysmal atrial fibrillation (HCC) [I48.0] HOSP EP Lab Comment on above: Paroxysmal atrial fi brillation (HCC) [I48.0] Start: 07-03-2023 End: 07-03-2023 Ephys evl trnsptl tx atrial fib isolat pulm vein EP LAB Start: 07-03-2023 End: 07-03-2023 Patient encounter procedure Admitting Comment on above: PVI ABLATION Start: 06-26-2023 End: 06-26-2023 [facility] Comment on above: PVI ABLATION Start: 06-26-2023 End: 06-26-2023 Patient encounter procedure Radiology Comment on above: PVI ABLATION Start: 06-23-2023 End: 05-23-2024 Basic metabolic 2000 panel - Serum or Plasma BASIC METABOLIC PNL Lab Routine Atrial fibrillation, persistent (HCC) Expected: 06/23/2023, Expires: 05/23/2024 [facility] Work Phone: Comment on above: Expected: 06/23/2023 , Expires: 05/23/2024 Start: 06-23-2023 End: 05-23-2024 CBC panel - Blood by Automated count CBC Lab Routine Atrial fibrillation, persistent (HCC) Expected: 06/23/2023, Expires: 05/23/2024 [facility] Work Phone: Comment on above: Expected: 06/23/2023 , Expires: 05/23/2024 Start: 06-23-2023 End: 05-23-2024 CONFIRM BLOOD TYPE CONFIRM BLOOD TYPE Blood Bank Routine Atrial fibrillation, persistent (HCC) Expected: 06/23/2023, Expires: 05/23/2024 [facility] Work Phone: Comment on above: Expected: 06/23/2023 , Expires: 05/23/2024 Start: 06-23-2023 End: 05-23-2024 TYPE AND SCREEN,30 DAY TYPE AND SCREEN,30 DAY Blood Bank Routine Atrial fibrillation, persistent (HCC) Expected: 06/23/2023, Expires: 05/23/2024 [facility] Work Phone: Comment on above: Expected: 06/23/2023 , Expires: 05/23/2024 Start: 05-24-2023 End: 08-23-2023 CREATININE BLD CREATININE BLD Lab Routine Atrial fibrillation, persistent (HCC) Expected: 05/24/2023, Expires: 08/23/2023 [facility] Work Phone: Comment on above: Expected: 05/24/2023 , Expires: 08/23/2023 Start: 03-01-2023 Patient referral [facility] Work Phone: Start: 02-21-2023 Patient discharge [facility] Start: 02-18-2023 Advance Directive Discussion Advance Directive Discussion [facility] Start: 02-18-2023 Behavioral Health Screening Behavioral Health Screening [facility] Start: 02-18-2023 Depression Assessment Depression Ass essment [facility] Start: 01-15-2023 Patient discharge [facility] Start: 12-26-2022 [facility] Start: 12-25-2022 End: 12-25-2022 Patient encounter procedure 12/25/2022 10:00 AM EST Office Visit [facility] [address] [place] [address] Abhishek Andrews MD [address] [place] [address] [facility] Start: 11-27-2022 Patient discharge [facility] Start: 10-19-2022 Covid-19 Vaccine ( season) Covid-19 Vaccine ( season) [facility] Start: 10-19-2021 Influenza vaccination INFLUENZA (#1) [facility] Start: 06-03-2021 COVID-19 VACCINE (4 - Booster for Moderna series) COVID-19 VACCINE (4 - Booster for Moderna series) [facility] Start: 2021 RSV Immunization for Adults (1 - 1-dose 75+ series) RSV Immunization for Adults (1 - 1-dose 75+ series) [facility] Start: 2021 RSV Vaccine (1 - 1-d ose 75+ series) RSV Vaccine (1 - 1-dose 75+ series) [facility] Start: 03-30-2021 COVID-19 Vaccine (4 - Booster for Moderna series) COVID-19 Vaccine (4 - Booster for Moderna series) [facility] Start: 02-18-2021 ADVANCE DIRECTIVE DISCUSSION ADVANCE DIRECTIVE DISCUSSION [facility] Start: 09-16-2020 Screening for malign ant neoplasm of breast Mammogram [facility] Start: 05-19-2018 DIABETES SCREEN DIABETES SCREEN [facility] Start: 05-19-2018 Diabetes Screening Diabetes Screenin g [facility] Start: 01-04-2018 Adult depression scr eening assessment DEPRESSION SCREENING [facility] Start: 04-29-2011 BONE DENSITY BONE DENSITY [facility] Start: 04-29-2011 Fall risk assessment Falls Risk Asse ssment [facility] Start: 04-29-2011 Pneumococcal Vaccine : 65+ (1 of 1 - PCV) Pneumococcal Vaccine: 65+ (1 of 1 - PCV) [facility] Start: 04-29-2011 Pneumococcal Vaccine : Age 65+ (1 - PCV) Pneumococcal Vaccine: Age 65+ (1 - PCV) [facility] Start: 04-29-2011 PNEUMOCOCCAL: 65+ (1 - PCV) PNEUMOCOCCAL: 65+ (1 - PCV) [facility] Start: 04-29-2011 Screening for osteoporosis Bone Dens ity Screening [facility] Start: 2006 RSV Vaccine (1 - 1-d ose 60+ series) RSV Vaccine (1 - 1-dose 60+ series) [facility] Start: 1996 Administration of he rpes zoster vaccine Zoster Vaccines (1 of 2) [facility] Start: 1996 Pneumococcal Vaccine : 50+ (1 of 1 - PCV) Pneumococcal Vaccine: 50+ (1 of 1 - PCV) [facility] Start: 1996 SHINGRIX VACCINE (1 of 2) [place] GRIX VACCINE (1 of 2) [facility] Start: 1996 Zoster Vaccines (1 of 2) Zoste r Vaccines (1 of 2) [facility] Start: 04-29-1991 COLOGUARD (FIT-DNA) COLOGUARD (FIT-D NA) [facility] Start: 04-29-1991 Colonoscopy COLONOSCOPY [facility] Start: 04-29-1991 COLORECTAL CANCER SCREENING COLORECTAL CANCER SCREENING [facility] Start: 04-29-[address] COLONOGRAPHY [facility] Start: 04-29-1991 FECAL OCCULT BLOOD FECAL OCCULT BLOO D [facility] Start: 04-29-1991 LIPID SCREEN LIPID SCREEN [facility] Start: 04-29-1991 SIGMOIDOSCOPY SIGMOIDOSCOPY [facility] Start: 1965 DTaP/Tdap/Td Vaccine s (1 - Tdap) DTaP/Tdap/Td Vaccines (1 - Tdap) [facility] Start: 1965 Pneumococcal Vaccine : 50+ Years (1 of 2 - PCV) Pneumococcal Vaccine: 50+ Years (1 of 2 - PCV) [facility] Start: 1965 Urine microalbumin profile [facility] Start: 1964 Depression Screening Depression Scre ening [facility] Start: 1964 Hepatitis C screening Hepatitis C Sc zora [facility] Start: 1958 Depression screening using PHQ-9 (Patient Health Questionnaire 9) score [facility] [facility] 1948 History and physical examination, annual for health maintenance Wellness Visit [facility] Start: 1945 Creatinine measurement Creatinine Le arsh [facility] Start: 1945 Echocardiography Echocardiogram [facility] Start: 1946 Potassium measurement Potassium Leve l [facility] Start: 1946 Screening for osteoporosis [facility] Start: 1945 Tetanus vaccination Tetanus: Every 1 0yrs [facility] Start: 1945 Thyroid stimulating hormone measurement TSH Level [facility] Catheterization of l eft heart [facility] End: 07-22-2024 CT Chest W contrast IV [facility] Work Phone: Comment on above: Once for 1 Occurrenc es starting 07/22/2024 until 07/22/2024 End: 06-22-2024 CTA Pulmonary veins W contrast IV CT PULMONARY VEIN W IVCON Radiology Routine Atrial fibrillation, persistent (HCC) 1 Occurrences starting 05/24/2023 until 06/22/2024 [facility] Work Phone: Comment on above: 1 Occurrences starti ng 05/24/2023 until 06/22/2024 End: 04-11-2024 ECG COMPLETE ECG COMPLETE ECG Routine Atrial fibrillation, persistent (HCC) 1 Occurrences starting 04/11/2023 until 04/11/2024 [facility] Work Phone: Comment on above: 1 Occurrences starti ng 04/11/2023 until 04/11/2024 End: 05-23-2024 ECG COMPLETE ECG COMPLETE ECG Routine Atrial fibrillation, persistent (HCC) 1 Occurrences starting 05/24/2023 until 05/23/2024 [facility] Work Phone: Comment on above: 1 Occurrences starti ng 05/24/2023 until 05/23/2024 End: 04-09-2024 Echocardiography ECHO Cardiology Routine Atrial fibrillation, persistent (HCC) 1 Occurrences starting 04/09/2023 until 04/09/2024 [facility] Work Phone: Comment on above: 1 Occurrences starti ng 04/09/2023 until 04/09/2024 Patient Education [facility] Work Phone: Patient referral [facility] Work Phone: XR Chest PA and Lateral [facility] XR Chest PA and Lateral [facility] Immunizations Immunization Date Immunization Notes Care Provider Fa anayeli 12-06-2022 influenza virus vaccine, unspecified formulation Tish Dougherty APRN.CNP Work Phone: [facility] 05-11-2020 [facility] (Moderna) [facility] 04-13-2020 [facility] (Moderna) [facility] Payers Date Payer Category Payer Self-pay [id number] 2023 Medicare MMO MEDICARE MMO MEDADVANTAGE HMO [id number] 2023-Present [phone] [address] [place] [id number] O [id number]. [id number] 2023 Medicare (Managed Care) MMO MEDADVANTAGE HMO [id number] 2023 Medicare HMO MMO MEDICARE ADV ANTAGE [id number]. [id number] 2023 Medicare [id number] 2020 Unknown [id number]. 1.13.159.2. 7.3.072501.315 2015 Unknown [id number] 1945 Unknown [id number] 2.16.840.1.949031.3.579.2. 903 1946 Unknown [id number] 2.16.840.1.652472.3.579.2. 903 1946 Unknown [id number] 2.16.840.1.035641.3.579.2. 278 1946 Unknown [id number] 2.16.840.1.244266.3.579.2. 278 1946 Unknown [id number] 2.840.1.362049.3.579.2. 278 1946 Unknown [id number] 2.16.840.1.065580.3.579.2. 278 Medicare MEDICARE PART A B [id number] Medicare [id number] Unknown [id number] 2.840.1.596797.3.579.2. 462 Unknown [id number] 2.840.1.770319.3.579.2. 462 Unknown [id number] 2.840.1.456435.3.579.2. 462 Unknown [id number] 2.840.1.903148.3.579.2. 462 Unknown [id number] 2.840.1.386953.3.579.2. 462 Unknown [id number] 2.840.1.735404.3.579.2. 462 Unknown [id number] 2.840.1.457720.3.579.2. 462 Unknown [id number] 2.840.1.104040.3.579.2. 462 Unknown [id number] 2.16840.1.004526.3.579.2. 462 Unknown [id number] 2.840.1.392083.3.579.2. 462 Unknown [id number] 2.840.1.378433.3.579.2. 462 Unknown [id number] 2.16.840.1.338993.3.579.2. 462 Unknown [id number] 2.16.840.1.682039.3.579.2. 462 Unknown [id number] 2.16.840.1.302539.3.579.2. 462 Unknown [id number] 2.16.840.1.741575.3.579.2. 462 Unknown [id number] 2.16.840.1.730681.3.579.2. 462 Unknown [id number] 2.16.840.1.541302.3.579.2. 462 Unknown [id number] 2.16.840.1.954194.3.579.2. 462 Unknown [id number] 2.16.840.1.137022.3.579.2. 462 Unknown [id number] 2.16.840.1.874168.3.579.2. 462 Unknown [id number] 2.16.840.1.728191.3.579.2. 462 Social History Date Type Detail Facility Start: 01-04-2017 End: 05-31-2024 Tobacco smoking status NHIS Ex-smoker [facility] Start: 02-19-1976 End: 02-19-2016 History of tobacco use Current smoker [facility] Start: 02-19-1976 End: 02-19-2016 History of tobacco use Cigarette Smoker [facility] Start: 01-04-2017 End: 04-09-2023 Tobacco use and exposure Smokeless tobacco non-user [facility] Start: 08-11-2019 End: 10-03-2023 Alcohol intake Current drinker of alcohol (finding) [facility] Start: 08-11-2019 End: 04-09-2023 Alcohol intake [facility] Start: 03-01-2015 History SDOH Alcohol Comment social [facility] Start: 12-27-2016 End: 04-09-2023 Tobacco Comment 3 cigarettes/day [facility] Start: 1945 Sex Assigned At Not on file C [facility] Start: 09-19-2021 End: 06-19-2022 Exposure to SARS-CoV-2 (event) Not sure [facility] Start: 1945 Sex Assigned At Female [facility] Start: 11-02-2022 End: 03-01-2023 Tobacco smoking status NHIS Tobacco smoking consumption unknown [facility] Start: 04-09-2023 End: 10-03-2023 Gender identity Not on file [facility] National Score (1-100), lower number is lower risk 72 [facility] Start: 03-04-2023 End: 05-31-2024 Sex Female (finding) [facility] Goals Date Patient Goal Desired Activity /State Personal health goal Mental Status Date Assessment Result Facility 08-14-2024 Cognitive function Level Of Cons ciousness Awake;Alert;Appropriate [facility] Work Phone: 06-03-2024 Cognitive function Level Of Cons ciousness Awake;Alert;Appropriate [facility] Work Phone: Clinical Notes 09-29-2021 to 11-03-2024 Note Date & Type Note Facility 11-03-2024 Radiology Diagnostic study note [facility] Imaging Services [address] [place] [address] Chest PA and Lateral MR#: [id number] Acct: [id number] Name: CRISELDA STORM Rep #: [id number] : 1945 F 79 From: Manny Woodward MD PCP: Dr. Rachna Acosta, DO Status: REG CLI Study:Chest PA and Lateral Date of Exam: 11/03/24 Exam# [id number] Ordering Dr: Clarence Kim PAWN SHOP KEEPER PAWN SHOP KEEPER-C PROCEDURE: CHEST PA AND LATERAL 11/03/2024 REASON [...] LEX Kim; Dr. Rachna Acosta DO ~ Physician Assistant Certified: Signed [facility] 10-01-2024 Radiology Diagnostic study note [facility] Imaging Services [address] [place], [place] [address] Chest PA and Lateral MR#: [id number] Acct: [id number] Name: CRISELDA STORM Rep #: [id number] : 1945 F 79 From: Estrella Silva MD PCP: Dr. Rachna Acosta DO Status: REG CLI Study:Chest PA and Lateral Date of Exam: 10/01/24 Exam# [id number] Ordering Dr: Clarence Kim NP PAWN SHOP KEEPER-[place] PROCEDURE: CHEST PA AND LATERAL 10/01/2024 REASON [...] LEX Kim; Dr. Rachna Acosta DO ~ Physician Assistant Certified: Signed [facility] 09-01-2024 Radiology Diagnostic study note [facility] Imaging Services [address] [place], [place] [id number] Chest PA and Lateral MR#: [id number] Acct: [id number] Name: CRISELDA STORM Rep #: [id number] : 1945 F 79 From: Pauline Noland MD PCP: Dr. Rachna Acosta DO Status: REG CLI Study:Chest PA and Lateral Date of Exam: 09/01/24 Exam# [id number] Ordering Dr: Clarence Kim PAWN SHOP KEEPER PAWN SHOP KEEPER-C EXAM: XR Chest, 2 Views CLINICAL INDICATION: [...] pneumonia. 2. Left pleural effusion. Reading [facility] CC: PAWN SHOP KEEPER-C Cinthia Kim; Dr. Rachna Acosta DO ~ Physician Assistant Certified: Signed [facility] 08-19-2024 Radiology Diagnostic study note [facility] Imaging Services [address] [place], [place] [address] Chest PA and Lateral MR#: [id number] Acct: [id number] Name: CRISELDA STORM Rep #: [id number] : 1945 F 79 From: Allyn Lala MD PCP: Dr. Rachna Acosta DO Status: REG CLI Study:Chest PA and Lateral Date of Exam: 08/18/24 Exam# [id number] Ordering Dr: Clarence Kim PAWN SHOP KEEPER PAWN SHOP KEEPER-C PROCEDURE: CHEST PA AND LATERAL 08/18/2024 REASON [...] right base faint airspace disease. Reading Location: [facility] CC: LEX Kim; Dr. Rachna Acosta, DO ~ Physician Assistant Certified: Signed [facility] 08-18-2024 Evaluation note Diagnosis Onset Date Resolution Atrial flutter acute August 18, 2024 9:23am Non-ischemic cardiomyopathy acute August 18, 2024 9:23am [facility] Work Phone: 1(520) 128-878207-01-2025 Evaluation note* Diagnosis Onset Date Resolution Status Admit Date Atrial flutter acute August 18, 2024 9:23am Non-ischemic cardiomyopathy acute August 18, 2024 9:23am Bilateral pleural effusion acute November 03, 2024 8:59am CHF (congestive heart failur e), NYHA class III acute November 03, 2024 8:59am Non-ischemic cardiomyopathy acute November 03, 2024 8:59am Shortness of breath acute 2024 8:59am [facility] Work Phone: 1(800) 158-847507-01-2025 Evaluation note* Diagnosis Onset Date Resolution Status Admit Date Atrial flutter acute August 18, 2024 9:23am Non-ischemic cardiomyopathy chronic August 18, 2024 9:23am Atrial flutter acute November 03, 2024 8:59am Bilateral pleural effusion chronic November 03, 2024 8:59am Non-ischemic cardiomyopathy chronic November 03, 2024 8:59am [facility] Work Phone: 1(500) 292-669006-27-2025 Radiology Diagnostic study note [facility] Imaging Services [address] [place], [place] [id number] Thoracentesis W US MR#: [id number] Acct: [id number] Name: CRISELDA STORM Rep #: [id number] : 1945 F 79 From: Moy Francis MD PCP: Dr. Rachna Acosta DO Status: REG CLI Study:Thoracentesis W US Date of Exam: 0 08/14/24 Exam# [id number] Ordering Dr: Julio MALCOLM PROCEDURE: THORACENTESIS W US 08/14/2024 REASON FOR EXAM: RECURRENT PLEURAL EFFUSION TECHNIQUE: THORACENTESIS W US, left COMPARISON: Prior thoracentesis of 06/03/2024. FINDINGS: Following informed consent, and using standard sterile technique, an ultrasound- guided left thoracentesis was performed via a posterior approach. 2% lidocaine local anesthesia was followed by placement of a 5 Afghan catheter into the fluid collection. Approximately 650 mL slightly blood-tinged fluid was successfully removed. No complication was encountered, the patient left the department good condition without significantcomplaint. US/Thoracentesis W US IMPRESSION: Successful left sided ultrasound-guided therapeutic thoracentesis. Reading Location: [place] [address] CC: Dr. Rachna Acosta DO; EMETERIO MALCOLM ~ Physician Assistant Certified: Signed [facility]06-18-2025 Telephone encounter Note* Telephone Encounter - Fabiana Millan RN - 08/05/2024 3:53 PM EDT Pt daughter called requesting thoracentesis order faxed to [place]. Order faxed. Pt daughter statesshe is scheduling at [place] and will follow up with pt PCP unless her mom decides on a different route. [id number] Miscellaneous Notes* Telephone Encounter - Fabiana Millan RN - 08/05/2024 3:53 PM EDT Pt daughter called requesting thoracentesis order faxed to [place]. Order faxed. Pt daughter statesshe is scheduling at [place] and will follow up with pt PCP [...] Name of caller: Coco Contact phone number: [phone] Relationship to Patient: Daughter Provider: Dr. Malcolm Practice: Cardiothoracic Chief Complaint/Reason for Call: Patient daughter requesting a callback to discuss imaging results of chest CT. Please advise. Best time of day caller can be reached: Any Patient advised that office/PCP has 24-48 business hours to return their call: Yes' documented in this [facility]06-16-2025 Telephone encounter Note* Telephone Encounter - Fabiana Millan RN - 08/03/2024 9:27 AM EDT Spoke to daughter who states they would prefer to call central scheduling due to her work schedule.Number given. [id number] NoteOrders Placed This Encounter Procedures Thoracentesis Standing Status: Future Expected Date: 07/30/2024 Expiration Date: 07/30/2025[facility]06-12-2025 Telephone encounter Note* Telephone Encounter - Fabiana Millan RN - 07/30/2024 3:11 PM EDT Orders Placed This Encounter Procedures Thoracentesis Standing Status: Future Expected Date: 07/30/2024 Expiration Date: 07/30/2025 [id number] Telephone encounter Note* Telephone Encounter - Fabiana Millan RN - 07/30/2024 3:[address] Malcolm reviewed results with Coco, patient's daughter, per patient's request. Per Dr. Malcolm, plan is to schedule a thoracentesis for patient and she will call our office prn. [id number] Telephone encounter Note* Telephone Encounter - Brenda Tony - 07/29/2024 4:46 PM EDT Name of caller: Coco Contact phone number: [phone] Relationship to Patient: Daughter Provider: Dr. Malcolm Practice: Cardiothoracic Chief Complaint/Reason for Call: Patient daughter requesting a callback to discuss imaging results of chest CT. Please advise. Best time of day caller can be reached: Any Patient advised that office/PCP has 24-48 business hours to return their call: Yes' [id number] NoteOrders Placed This Encounter Procedures CT chest [...] Occurrences: 1 Expected Date: 07/16/2024 Expiration Date: 07/16/2025[facility]05-29-2025 History of Present illness Narrative* Emeterio Malcolm, DO - 07/16/2024 12:00 PM EDT Images from the original note were not included. [facility] CARDIOV[facility]ULAR [facility]ORACIC SURGERY [address] [facility] [address] Dept: [phone] Dept Loc: [phone] Visit type: New Reason for Visit: Pleural [...] and office visit notes from cardiology in [place]. Even without this information I did propose [...] Rachna Acosta DO Cardiology: Luis F Bravo, ELECTROMEDICAL SERVICE ENGINEER-ELISE Malcolm DO FACS Cardiothoracic Surgery [1] No [...] daily., Disp: , Rfl: documented in this [facility]05-08-2025 Radiology Diagnostic study note [facility] Imaging Services [address] [place] [id number] Chest PA and Lateral MR#: [id number] Acct: [id number] Name: CRISELDA STORM Rep #: [id number] : 1945 F 79 From: Shen Rose MD PCP: Dr. Rachna Acosta DO Status: REG CLI Study:Chest PA and Lateral Date of Exam: 06/24/24 Exam# [id number] Ordering Dr: Michelle Acosta sa, DO PROCEDURE: [...] MICHAEL CC: Dr. Rachna Acosta DO ~ Physician Assistant Certified: Signed [facility]04-16-2025 Evaluation note* Diagnosis Onset Date Resolution Status Admit Date Shortness of breath acute June 03, 2024 8:06am Pleural effusion inactive June 032024 8:06am Atrial flutter acute August 18, 2024 9:23am Non-ischemic cardiomyopathy acute August 18, 2024 9:23am [facility] Work Phone: 1(509) 127-541304-13-2025 Radiology Diagnostic study note [facility] Imaging Services [address] [place] [address] Chest PA and Lateral MR#: [id number] Acct: [id number] Name: CRISELDA STORM Rep #: [id number] : 1945 F 79 From: Skyler Fabian DO PCP: Dr. Rachna Acosta DO Status: REG ER Study:Chest PA and Lateral Date of Exam: 05/31/24 Exam# [id number] Ordering Dr: Garland Greene DO PROCEDURE: CHEST [...] Greene DO; Dr. Rachna Acosta DO ~ Physician Assistant Certified: Signed [facility]03-13-2025 History of Present illness Narrative* Brittany Camacho [...] PATIENT PRESENTS WITH AN IMPLANTABLE OR ATTACHED GASKET MAKER: No RADIOLOGY DEPARTMENT: Mammography PERIPHERAL IV DATA: Not applicable SIGNED BY: Robert Bae April 30, 2024 12:42 PM [facility]-2025 NoteHNO ID: [id number] Author: BRITTANY CAMACHO Mammo Tech Service: ? Author Type: Booth Usher Type: Progress Notes Filed: 04/30/2024 12:42 Note [...] PATIENT PRESENTS WITH AN IMPLANTABLE OR ATTACHED GASKET MAKER: No RADIOLOGY DEPARTMENT: Mammography PERIPHERAL IV DATA: Not applicable SIGNED BY: Robert Bae April 30, 2024 12:42 [facility]01-17-2025 Evaluation note* Diagnosis Onset Date Resolution Status Admit Date Atrial flutter acute March 062024 8:28am Non-ischemic cardiomyopathy acute March 06, 2024 8:28am Gastric wall thickening acute F [facility] 2024 1:43pm [facility] Work Phone: 1(474) 585-295201-17-2025 Evaluation note* Diagnosis Onset Date Resolution Status Admit Date Atrial flutter acute March 062024 8:28am Non-ischemic cardiomyopathy acute March 06, 2024 8:28am Gastric wall [facility] 1:43[facility] Shortness of breath acute June 03, 2024 8:06am Pleural effusion inactive June 032024 8:06am [facility] Work Phone: 1(977) 460-998008-15-2024 History of Present illness Narrative* Luis F Bravo APRN.CNP - 10/03/2023 12:00 PM EDT Images from the original note were not included. [facility] [place] [facility] Department of Cardiovascular Medicine SECTION OF CARDIAC PACING and ELECTROPHYSIOLOGY OUTPATIENT VISIT DATE October 03, 2023 OUTPATIENT VISIT TYPE EST PRIMARY CARE PHYSICIAN: Rachna Acosta [address] [place] [address] REFERRING PHYSICIAN: Bear Rodarte [address] [facility] [id number] CHIEF COMPLAINT: Post op HISTORY OF PRESENT [...] Cancer Mother Stomach, age 40's Heart Father [place] No Known Problems Sister Heart Brother [place] other (no other known family hx of [...] F Bravo APRN.CNP Pacing and Electrophysiology [address]/ Desk J2-2 Appointment:[phone] Dr. Bear Rodarte's office To schedule an appointment please call -- [phone] Other questions or concerns please call his office at-- [phone] Fax#: [phone] EP outside records and Care Everywhere Reviewed [...] Luis F Bravo APRN.CNP documented in this encounterK[facility]08-15-2024 NoteHNO ID: [id number] Author: LUIS F BRAVO APRN.CNP Service: ? Author Type: Nurse Practitioner Type: Progress Notes Filed: 10/03/2023 21:35 Note Text: [facility] [place] [facility] Department of Cardiovascular Medicine SECTION OF CARDIAC PACING and ELECTROPHYSIOLOGY OUTPATIENT VISIT DATE October 03, 2023 OUTPATIENT VISIT TYPE EST PRIMARY CARE PHYSICIAN: Rachna Acosta [address] [place] [address] REFERRING PHYSICIAN: Bear Rodarte [address] [facility] [address] CHIEF COMPLAINT: Post op HISTORY OF PRESENT [...] Cancer Mother Stomach, age 40's Heart Father [place] No Known Problems Sister Heart Brother [place] other (no other known family hx of [...] stools-No. Neurological/Psychiatric: Weakness, para (more content not included)...[facility]06-06-2024 NoteHNO ID: [id number] Author: ?, ?, ? Service: ? Author Type: ? Type: Progress Notes Filed: 07/25/2023 12:03 Note Text: Incidental Lung Nodule Enrollment Outreach attempt: 3rd Attempt Outreach status: Complete Enrolled in Lung Nodule program: No Declined reason: Other Lung Nodule Program Location: [facility] Two letter attempts, no response. Discharge letter sent.[facility]06-06-2024 History of Present illness Narrative* Carole Kilgore - 07/25/2023 12:01 PM EDT Incidental Lung Nodule Enrollment Outreach attempt: 3rd Attempt Outreach status: Complete Enrolled in Lung Nodule program: No Declined reason: Other Lung Nodule Program Location: [facility] Two letter attempts, no response. Discharge letter sent. documented in this [facility]-2024 NotePatient Outreach (PULMMN) CRISELDA STORM ([id number]) 1945 F Date Time Provider Department 07/25/23 CAROLE KILGORE During your visit today, we recorded the following information about you: Carole Kilgore 07/25/2023 12:03 PM Signed Incidental Lung Nodule Enrollment Outreach attempt: 3rd Attempt Outreach status: Complete Enrolled in Lung Nodule program: No Declined reason: Other Lung Nodule Program Location: [facility] Two letter attempts, no response. Discharge letter [...] Text Encounter Status:Closed by CAROLE KILGORE on 07/25/23[facility] 07-17-2023 NoteHNO ID: [id number] Author: ?, ?, ? Service: ? Author Type: ? Type: Progress Notes Filed: 07/17/2023 08:16 Note Text: Incidental Lung Nodule Enrollment Outreach attempt: 2nd Attempt Outreach status: Complete Enrolled in Lung Nodule program: Referred Lung Nodule outreach: Needs outreach Lung Nodule Program [facility] History of Present illness Narrative* Carole Kilgore - 07/17/2023 8:15 AM EDT Incidental Lung Nodule Enrollment Outreach attempt: 2nd Attempt Outreach status: Complete Enrolled in Lung Nodule program: Referred Lung Nodule outreach: Needs outreach Lung Nodule Program Location: [facility] letter attempts documented in this encounterK[facility]05-29-2024 NotePatient Outreach (PULMMN) CRISELDA STORM ([id number]) 1945 F Date Time Provider Department 07/17/23 CAROLE KILGORE During your visit today, we recorded the following information about you: Carole Kilgore 07/17/2023 8:16 AM Signed Incidental Lung Nodule Enrollment Outreach attempt: 2nd Attempt Outreach status: Complete Enrolled in Lung Nodule program: Referred Lung Nodule outreach: Needs outreach Lung Nodule Program Location: [facility] letter attempts Allergies As of Date: [...] Text Encounter Status:Closed by CAROLE KILGORE on 07/17/23[facility]05-22-2024 NoteHNO ID: [id number] Author: DEISY CLEMENTE APRN.CNP Service: ? Author [...] outreach: Needs outreach Lung Nodule Program Location: [facility]05-22-2024 History of Present illness Narrative* Deisy Clemente [...] outreach: Needs outreach Lung Nodule Program Location: [facility] documented in this encounterK[facility]05-22-2024 NotePatient Outreach ([facility]) CRISELDA STORM ([id number]) 1945 F Date Time Provider Department 07/10/23 DEISY CLEMENTE [facility] During your visit today, we recorded the [...] outreach: Needs outreach Lung Nodule Program Location: [facility] Allergies As of Date: 07/10/2023 (No Known [...] Text Encounter Status:Closed by DEISY CLEMENTE on 07/10/23[facility] 07-05-2023 History of Present illness Narrative* Carole Kilgore - 07/05/2023 3:32 PM EDT Patient Discharged from Hospital Needs outreach documented in this encounterK[facility]05-17-2024 NoteHNO ID: [id number] Author: ?, ?, ? Service: ? Author Type: ? Type: Progress Notes Filed: 07/05/2023 15:32 Note Text: Patient Discharged from Hospital [facility]24 NotePatient Outreach (DE[facility]) CRISELDA STORM ([id number]) 1945 F Date Time Provider Department 07/05/23 [...] 04/09/2023 Encounter Status:Closed by CAROLE KILGORE on 07/05/23[facility]05-16-2024 NoteHNO ID: [id number] Author: ?, ?, ? Service: ? Author Type: ? Type: Progress Notes Filed: 07/04/2023 10:44 Note Text: TRANSMITTER INSTRUCTIONS Patient Name: Criselda Storm [facility] Number: [id number] Fresh battery inserted in monitor Patient instructed 1.) Scheduled and Symptomatic recording instructions 2.) Usage of event button and/or transmission instructions 3.) Maintenance and care of monitor 4.) Prefer land line or select mobile phones 5.) Return unit at the end of prescribed order 6.) Call with problems [phone] [place] Ext.[phone] Patient expresses good verbal understanding of instructions Suzi Ro [facility]05-16-2024 History of Present illness Narrative* Suzi Puente - 07/04/2023 10:43 AM EDT TRANSMITTER INSTRUCTIONS Patient Name: Criselda Storm [facility] Number: [id number] Fresh battery inserted in monitor Patient instructed 1.) Scheduled and Symptomatic recording instructions 2.) Usage of event button and/or transmission instructions 3.) Maintenance and care of monitor 4.) Prefer land line or select mobile phones 5.) Return unit at the end of prescribed order 6.) Call with problems [phone] OR Ext.[phone] Patient expresses good verbal understanding of instructions Suzi Denny [facility] Telephone encounter Note * Telephone Encounter - Ani Velasquez RN - 07/04/2023 10:03 AM EDT Pt contacted for discharge follow up from recent hospital stay. Pt verified name and and informed that call was on a recorded line. Pt denies any questions or concerns since discharge yesterday. Closing comments given including reminder of 24 hour nurse resource line in discharge paperwork. [facility]05-16-2024 Miscellaneous Notes* Telephone Encounter - Ani Velasquez RN - 07/04/2023 10:03 AM EDT Pt contacted for discharge follow up from recent hospital stay. Pt verified name and and informed that call was on a recorded line. Pt denies any questions or concerns since discharge yesterday. Closing comments given including reminder of 24 hour nurse resource line in discharge paperwork. documented in this encounterK[facility]05-15-2024 NoteHNO ID: [id number] Author: EVETTE HALL PA-C Service: ? Author Type: Physician Product Support Representative Type: Progress Notes Filed: 07/03/2023 14:36 Note Text: Incidental Lung Nodule Enrollment Outreach attempt: 1st Attempt Outreach status: Complete Enrolled in Lung Nodule program: Referred Lung Nodule outreach: No outreach - Inpatient Lung Nodule Program Location: [facility]05-15-2024 History of Present illness Narrative* Evette Hall PA-C - 07/03/2023 2:36 PM EDT Incidental Lung Nodule Enrollment Outreach attempt: 1st Attempt Outreach status: Complete Enrolled in Lung Nodule program: Referred Lung Nodule outreach: No outreach - Inpatient Lung Nodule Program Location: [facility] documented in this [facility]05-15-2024 NoteHNO ID: [id number] Author: BOSSMAN LONDONO MD Service: Cardiovascular Medicine Author Type: Fellow Type: Plan of Care Filed: 07/03/2023 11:08 Note Text: BRIEF PROCEDURE NOTE: Procedure: PVI Start time: July 03, 2023, 9:15 AM End time: July 03, 2023, 11:07 AM Primary Surgeon: Bear Rodarte MD Product Support Representative: Bossman Londono MD Outcome: success Access: 17Fr [...] day discharge Full report to follow in [facility] (Under Chart Review -> Cardiac) Bossman Londono MD Cardiac Electrophysiology Fellow, PGY-8 Personal pager/cell: [phone] 07/03/2023 11:07 AM Please note: This note was written using Netotiate dictation software. Please excuse typos and [id number] that the dictation may have mistakenly made. For communication after 5 pm on weekdays and after 12 pm on weekends, please page the following: - Clinical Cardiology patients on all floors: page [phone] - All other patients: after hours SORAYA (found in the On-Call directory by searching SORAYA) - For any urgent or emergent issues, [place] [phone] [facility]05-15-2024 NoteHNO ID: [id number] Author: STEPHANIE NOGUEIRA APRN.EDITOR MAP Service: ? Author Type: Nurse Net Software Architect Type: Anesthesia Procedure Notes Filed: 07/03/2023 08:59 Note Text: ANESTHESIOLOGY PROCEDURE NOTE Airway General Information Procedure Start Time/Medication Administration: 07/03/2023 8:36 AM Procedure End Time: 07/03/2023 8:39 AM Patient location during procedure: OR Timeout Performed Pre-procedure: timeout performed Consent Obtained: Yes Patient identity confirmed: arm band and patient Staffing EDITOR MAP: Stephanie Nogueira APRN.EDITOR MAP Performed by: ARIADNA Indications and Patient Condition Indications for airway management: anesthesia Preoxygenated: yes anesthesia circuit Method: sleep Difficult Mask: No Final Airway Details Final airway type: endotracheal airway Final Endotracheal Airway: ETT Cuffed: yes Successful intubation technique: video laryngoscopy Devices used: INFIMET Endotracheal tube insertion site: oral Blade size: #3 ETT size (mm): 7.0 Measured from: lips Measurement (cm): 22 Placement verified by: capnometry Cormack-Lehane Classification: grade I - full view of glottis Number of attempts at approach: 1 Airway not difficult SIGNATURE: Stephanie Nogueira APRN.CRNA PATIENT NAME: Criselda Storm DATE: July 03, 2023 TIME: 8:58 AM CSN: [id number] NoteHNO ID: [id number] Author: STEPHANIE NOGUEIRA APRN.EDITOR MAP Service: ? Author Type: Nurse Net Software Architect Type: Anesthesia Procedure Notes Filed: 07/03/2023 08:58 Note Text: ANESTHESIOLOGY PROCEDURE NOTE PIV General Information Procedure Start Time/Medication Administration: 07/03/2023 8:38 AM Procedure End Time: 07/03/2023 8:40 AM Patient Location: OR Staffing EDITOR MAP: Kimberly Nash APRN.EDITOR MAP Performed by: ARIADNA Preparation Sterility Preparation: hand [...] July 03, 2023 TIME: 8:57 AM CSN: [id number]24 NotePatient Outreach (PMNA11) CRISELDA STORM ([id number]) 1945 F Date Time Provider Department 07/03/23 EVETTE HALL PMNA11 During your visit today, we recorded the following information about you: Evette Hall PA-C 07/03/2023 2:36 PM Signed Incidental Lung Nodule Enrollment Outreach attempt: 1st Attempt Outreach status: Complete Enrolled in Lung Nodule program: Referred Lung Nodule outreach: No outreach - Inpatient Lung Nodule Program Location: [facility] Allergies As of Date: 07/03/2023 (No Known [...] 04/09/2023 Encounter Status:Closed by EVETTE HALL on 07/03/23[facility]05-14-2024 NoteHNO ID: [id number] Author: KIMBERLY GUZMAN RN Service: ? Author [...] discussed with Physician, nurse practitioner or Physician patient care nursing assistant upon discharge Instructions for transmitting EKG to Monitoring Center 3 month follow up instructions Contact number for information and questions Patient Evaluation: Verbalizes understanding Follow Up Plan: Follow up as directed by MD. Supplemental Material Given: Written Material Patient education RE: Radiation Exposure. Instructed By Kimberly Guzman RN. In Department of CARDIOLOGY.[facility]05-14-2024 History of Present illness Narrative* Kimberly Guzman [...] discussed with Physician, nurse practitioner or Physician patient care nursing assistant upon discharge Instructions for transmitting EKG to Monitoring Center 3 month follow up instructions Contact number for information and questions Patient Evaluation: Verbalizes understanding Follow Up Plan: Follow up as directed by MD. Supplemental Material Given: Written Material Patient education RE: Radiation Exposure. Instructed By Kmiberly Guzman RN. In Department of CARDIOLOGY. documented in this encounterK[facility]-14-2024 NoteEducation (EPSMN) CRISELDA STORM ([id number]) 1945 F Date Time Provider Department 07/02/23 [...] day. Encounter Status:Closed by KIMBERLY GUZMAN on 07/02/23[facility] 06-26-2023 History of Present illness Narrative* Tisha Araujo APRN.ELISE - 06/26/2023 3:00 PM EDT Images from the original note were not included. [facility] [place] [facility] Department of Cardiovascular Medicine SECTION OF CARDIAC PACING and ELECTROPHYSIOLOGY OUTPATIENT VISIT DATE June 26, 2023 OUTPATIENT VISIT TYPE ESTABLISHED PRIMARY CARE PHYSICIAN: Rachna Acosta [address] [place] [address] Hogshead Roller: Dr. Melchor REFERRING PHYSICIAN: Self CHIEF COMPLAINT: [...] in March, she had an echo at [facility] which revealed EF had normalized to 58% [...] Cancer Mother Stomach, age 40's Heart Father [place] No Known Problems Sister Heart Brother [place] other (no other known family hx of [...] 06/26/2023 reviewed: Sinus Rhythm V-rate 60 bpm [place] 170 ms QRS 78 ms QT/QTc 472/472 [...] obtained at those intervals either through the [facility] or through his physician's office and to [...] in half - Call the EP Lab [phone] on June 30 for procedure instrucionts - Continue Eliquis - Continue amiodarone - Return for follow up in September CONTACT INFORMATION: Tisha Araujo APRN.CNP documented in this encounterK[facility]05-08-2024 NoteHNO ID: [id number] Author: ITSHA ARAUJO APRN.CNP Service: ? Author Type: Nurse Practitioner Type: Progress Notes Filed: 06/26/2023 16:47 Note Text: [facility] [place] [facility] Department of Cardiovascular Medicine SECTION OF CARDIAC PACING and ELECTROPHYSIOLOGY OUTPATIENT VISIT DATE June 26, 2023 OUTPATIENT VISIT TYPE ESTABLISHED PRIMARY CARE PHYSICIAN: Rachna Acosta [address] [place] [address] Hogshead Roller: Dr. Melchor REFERRING PHYSICIAN: Self CHIEF COMPLAINT: [...] in March, she had an echo at [facility] which revealed EF had normalized to 58% [...] Cancer Mother Stomach, age 40's Heart Father [place] No Known Problems Sister Heart Brother [place] other (no other known family hx of [...] (125 lb) BMI 21 (more content not included)...[facility]05-08-2024 History of Present illness Narrative* Ann Bello [...] PATIENT PRESENTS WITH AN IMPLANTABLE OR ATTACHED GASKET MAKER: No RADIOLOGY DEPARTMENT: CT; Exam(s) Completed: Cardiac PERIPHERAL IV DATA: Site assessment: Clean,Dry and Intact, Site disposition Discontinued SIGNED BY: RT Nemo(Julio) June 26, 2023 3:09 PM documented in this encounterK[facility]05-08-2024 NoteHNO ID: [id number] Author: ANN BELLO RN Service: Radiology Author [...] Storm DATE: June 26, 2023 TIME: 2:21 [facility]05-08-2024 NoteHNO ID: [id number] Author: COBY COLLADO RT(R) Service: Radiology Author [...] PATIENT PRESENTS WITH AN IMPLANTABLE OR ATTACHED GASKET MAKER: No RADIOLOGY DEPARTMENT: CT; Exam(s) Completed: Cardiac PERIPHERAL IV DATA: Site assessment: Clean,Dry and Intact, Site disposition Discontinued SIGNED BY: RT Nemo(R) June 26, 2023 3:09 [facility]04-24-2024 Telephone encounter Note * Telephone Encounter - January Clark RN - 06/12/2023 5:10 PM EDT Patient returned call and accepted sooner procedure date of Saturday07/03/[address] Rodarte. Reviewed medication instructions with patient, patient stated understanding. Please reschedule pre op appointments to within 30 days prior of procedure. January Clark RN, RN [facility]04-24-2024 Miscellaneous Notes* Telephone Encounter - January Clark [...] January Clark RN, RN documented in this encounterK[facility]04-24-2024 Telephone encounter Note * Telephone Encounter - January Clark RN - 06/12/2023 3:51 PM EDT Due to change in Dr. Rodarte's schedule, called patient and left message offering sooner date of Saturday07/03/23. Awaiting return call from patient. January Clark RN, RN [facility]04-05-2024 Miscellaneous Notes* Telephone Encounter - January Clark [...] Lab Procedure requested: Ablations PVI ablation CPT 04140 Anticoagulation Status: Eliquis (apixaban) Requesting Physician: Bear [...] 16, 2023 9:39 AM documented in this encounterK[facility]03-14-2024 Miscellaneous Notes* Telephone Encounter - Terri Spears RN - 05/02/2023 2:28 PM EDT Criselda Storm returned my phone call. I reviewed the below with the patient. She would like to proceed with the ablation procedure. I will update Dr Mooney. Terri Spears RN * Telephone Encounter - Terri Spears RN - 05/02/2023 2:21 PM EDT I called Criselda Storm to review her Helishopterhart message and her recent Echo results from 04/12/23. The echo showed significant improved in her LVEF (58%) with taoism of NSR. I reviewed this with Dr Rodarte who favors an ablation (AF and AFL). I called to review with the patent but there was no answer. Left VM. Terri Spears RN documented in this encounterKet[facility]02-20-2024 History of Present illness Narrative* Bear Rodarte MD - 04/09/2023 9:45 AM EST Images from the original note were not included. [facility] [place] [facility] Department of Cardiovascular Medicine SECTION OF CARDIAC PACING and ELECTROPHYSIOLOGY OUTPATIENT VISIT DATE April 09, 2023 OUTPATIENT VISIT TYPE NEW PRIMARY CARE PHYSICIAN: Rachna Acosta [address] [place] [address] REFERRING PHYSICIAN: No referring provider defined for [...] Cancer Mother Stomach, age 40's Heart Father [place] No Known Problems Sister Heart Brother [place] other (no other known family hx of [...] inthe future. Would first like to confirm taoism of LV function with echo. Otherwise plan [...] INFORMATION: Bear Rodarte MD documented in this encounterK[facility]01-04-2024 Procedure [facility]01-04-2024 Procedure [facility]01-02-2024 History and physical note Author [facility] February 19, 2023 6:48am Note Date/Time February 14, 2023 1:41pm [facility] Medical Records Department [address] [place] [address] History & Physical Exam 02/14/23 1337 MR#: [id number] Acct: [id number] Name: CRISELDA STORM Rep #:[id number] : 1945 77 From: Marcelo Berry MD PCP: Dr. 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 Marcelo Berry MD; Dr. Rachna Acosta DO~ Signed [facility] Work Phone: [phone] History of Present illness Narrative* Abhishek Andrews MD - 06/19/2022 2:08 PM EDT [facility] [address] [facility] [place] [address] [facility] [address] Dept: [phone] Abhishek Andrews MD Criselda Storm 77 y.o. female Patient presents with a chief complaint of [place] pt just had [facility] at [facility] ([facility] Pt/ prev pt at [place]/Hearing test showed right ear was not good [...] Hematological: Negative. Psychiatric/Behavioral: Negative. documented in this [id number] Miscellaneous Notes* Letter - Mammography Coordinator - 09/29/2021 1:48 PM EDT September 29, 2021 PID: [id number] Criselda Storm [address] [place] [address] Dear Ms. Storm, We are pleased to [...] report will be kept [facility] at [facility] as part of your permanent medical record and are available for your continuing care. Thank you for allowing us to help in meeting your health care needs. Sincerely, Dr. To Interpreting Radiologist [facility] (Normal over 40) documented in this encounterKettering [facility] Hamilton08-12-2022 History of Present illness Narrative* RT Miguel(R) [...] 29, 2021 10:50 AM documented in this encounterKettering Health HamiltonEvaluation noteNo assessment information availableWBarney Children's Medical Center Work Phone: Evaluation note* Diagnosis Sensorineural hearing loss, bilateral- Primary Impacted cerumen of right ear Impacted cerumen Impaired auditory discrimination, right [facility]* Diagnosis Onset Date Resolution Status Atrial flutter acute CHF (congestive heart failure), NYHA class III acute [facility] Work Phone: Evaluation note* Diagnosis Onset Date Resolution Status Atrial flutter acute CHF (congestive heart failure), NYHA class III acute Atrial flutter acute Non-ischemic cardiomyopathy acute Atrial flutter acute Non-ischemic cardiomyopathy [facility] Work Phone: Evaluation note* Diagnosis Onset Date Resolution Status Atrial flutter acute Non-ischemic cardiomyopathy acute Atrial flutter acute Non-ischemic cardiomyopathy acute Atrial flutter acute Non-ischemic cardiomyopathy [facility] Work Phone: Evaluation note* Diagnosis Atrial fibrillation, persistent (HCC)- Primary Atrial fibrillation Dilated cardiomyopathy (HCC) Other primary cardiomyopathies documented in this encounter [facility] note* Diagnosis Atrial fibrillation, persistent (HCC)- Primary Atrial fibrillation documented in this encounter [facility] note* Diagnosis Persistent atrial fibrillation (HCC)- Primary Atrial fibrillation Nonischemic cardiomyopathy (HCC) Other primary cardiomyopathies On amiodarone therapy Paroxysmal atrial fibrillation (HCC) Atrial fibrillation documented in this encounter [facility] note* Diagnosis Atrial fibrillation, persistent (HCC) Atrial fibrillation Paroxysmal atrial fibrillation (HCC) Atrial fibrillation documented in this encounter [facility] note* Diagnosis AF (paroxysmal atrial fibrillation) (HCC)- Primary Atrial fibrillation documented in this encounter [facility] note* Diagnosis Typical atrial flutter (HCC)- Primary Atrial flutter Persistent atrial fibrillation (HCC) Atrial fibrillation On apixaban therapy Mixed hyperlipidemia documented in this encounter [facility] note* Diagnosis Atrial fibrillation, persistent (HCC)- Primary Atrial fibrillation documented in this encounter [facility] note* Diagnosis Pleural effusion on left- Primary Unspecified pleural effusion Chronic combined systolic (congestive) and diastolic (congestive) heart failure (HCC) Atrial fibrillation, unspecified type (HCC) documented in this encounter [facility] note* Diagnosis Recurrent pleural effusion documented in this encounter [facility] note* Diagnosis Recurrent pleural effusion- Primary Pleural effusion on left Unspecified pleural effusion documented in this encounter [facility] Discharge instructionsAmbulatory Orders* Electrophysiology Location: [facility] Work Phone: Reason for referral (narrative)* Outpatient Procedure (Routine) - Authorized Specialty Diagnoses / Procedures Referred By Contac t Referred To Contact [facility] Diagnoses Atrial fibrillation, persistent (HCC) Procedures ECG COMPLETE ECG ROUTINE ECG W/LEAST 12 LDS W/I&R Bear Rodarte MD [address] [place] [address] [facility] [place] [address] [place] [address] Referral ID Status Reason Start Date Expiration Date Visits Requested Visits Authorized [id number] Authorized Auto-Generat ed Referral 04/11/2023 04/10/2024 1 1 [facility]Reason [facility]narrative)No reason for referral information availableWBarney Children's Medical Center Work Phone: Reason for visit Narrative* Imaging (Routine) - Closed Specialty Diagnoses / Procedures Referred By Patricia t Referred To Contact Radiology Diagnoses Recurrent pleural effusion Procedures CT chest w IV contrast Emeterio Malcolm DO [address] [place] [address] Phone: tel: fax: Referral ID Status Reason Start Date Expiration Date Visits Re quested Visits Authorized [id number] Closed 07/16/2024 07/16/2025 1 1 [facility] Health Summary Purpose Family History No Family History Records Found Relationship Condition Age at Onset Recorded Date/T elif father Myocardial infarction Unknown brother Myocardial infarction Unknown Advance Directives No Advanced Directives Records Found Advance Directive Response Recorded Date/ Time Advance Directives on File No Octob er 2022 6:48am Name of Medical Power of Loom Overhauler coco carlos November 27, 2022 6:48am Advance Directives Yes November 27, 2022 6:48am Living Will Yes November 27 6:48am Power of Loom Overhauler Yes November 27, 2022 6:48am Advance Directive Response Recorded Date/ Time Advance Directives on File No Novem 2022 7:29am Name of Medical Power of Loom Overhauler Coco Massey- daughter January 15, 2023 7:29am Advance Directives Yes December 7:29am Living Will Yes January 15, 2 023 7:29am Power of Loom Overhauler Yes January 15, 2023 7:29am Advance Directives on File No Octob er 2022 6:48am Name of Medical Power of Loom Overhauler coco carlos November 27, 2022 6:48am Advance Directive Response Recorded Date/ Time Advance Directives on File No Novem 2022 7:29am Name of Medical Power of Loom Overhauler Coco Massey- daughter January 15, 2023 7:29am Advance Directives on File No Janua ry 2023 11:21am Name of Medical Power of Loom Overhauler Coco Massey- daughter February 21, 2023 11:21am Advance Directives Yes February 21, 2023 11:21am Living Will Yes February 21 11:21am Power of Loom Overhauler Yes February 21, 2 024 11:21am Advance Directives on File No Octob 2022 6:48am Name of Medical Power of Loom Overhauler coco carlos November 27, 2022 6:48am Advance Directive Response Recorded Date/ Time Living Will Yes February 21 12:21pm Do you have a Healthcare Power of Loom Overhauler? Yes February 21, 2023 12:21pm Living Will Yes May 31, 2024 4:20pm Do you have a Healthcare Power of Loom Overhauler? Yes May 31, 2024 4:20pm Name of Medical Power of Loom Overhauler Coco May 31, 2024 4:20pm Advance Directives Yes February 21, 2023 12:21pm Advance Directive Response Recorded Date/ Time Living Will Yes May 31, 2024 4:20pm Do you have a Healthcare Power of Loom Overhauler? Yes May 31, 2024 4:20pm Name of Medical Power of Loom Overhauler Coco May 31, 2024 4:20pm Advance Directives Yes February 21, 2023 12:21pm Advance Directive Response Recorded Date/ Time Advance Directives Yes February 21, 2023 12:21pm Advance Directive Response Recorded Date/ Time Living Will Yes February 21 12:21pm Do you have a Healthcare Power of Loom Overhauler? Yes February 21, 2023 12:21pm Advance Directives [...] 2024 12 :37pm 1 Y FU/MOVED FROM [facility] November 03 8:59am Reason for Visit [...] 2024 12 :37pm 1 Y FU/MOVED FROM [facility] November 03 8:59am INT XRAY ORDER [...] UP APPT ORDER Bear Rodarte MD [address] [place] [address] Referral ID Status Reason Start Date Expiration Date Visits Requested Visits Authorized [id number] Ref Not Required PCP Requested Referral 07/08/2023 04/08/2024 1 1 Specialty Diagnoses / Procedures Referred By Patricia dunn Referred To Contact [facility] Diagnoses Atrial fibrillation, persistent (HCC) Procedures ECHO ECHO TTHRC R-T 2D W/WOM-MODE COMPL SPEC&COLR D Bear Rodarte MD [address] [place] [address] [facility] Vascular [address] [address] Referral ID Status Reason Start Date Expiration Date Visits Requested Visits Authorized [id number] Authorized Auto-Generat ed Referral 04/09/2023 04/08/2024 1 1 Specialty Diagnoses / Procedures Referred By Contac t Referred To Contact [facility] [place] Procedures CARDIOVASCULAR MEDICINE OP FOLLOW UP APPT ORDER Tisha Araujo ELECTROMEDICAL SERVICE ENGINEER.TRANSPLANT IMMUNOLOGIST [address] [place] [address] [address] Referral ID Status Reason Start Date Expiration Date Visits Requested Visits Authorized [id number] Ref Not Required PCP Requested Referral 06/26/2023 06/25/2024 1 1 Specialty Diagnoses / Procedures Referred By Contac t Referred To Contact CT IMAGING Diagnoses Atrial fibrillation, persistent (HCC) Procedures CT PULMONARY VEIN W IVCON CT HEART CONTRAST EVAL CARDIAC STRUCTURE&MORPH Bear Rodarte MD [address] [place] [address] Ct Imaging [facility] Referral ID Status Reason Start Date Expiration Date V isits Requested Visits Authorized [id number] Closed Auto-Generate d Referral 05/24/2023 06/22/2024 1 1 Specialty Diagnoses / Procedures Referred By Contac t Referred To Contact [facility] [place] Diagnoses Typical atrial flutter (HCC) Persistent atrial fibrillation (HCC) On apixaban therapy Procedures CARDIOVASCULAR MEDICINE OP FOLLOW UP APPT ORDER Luis F Bravo, ELECTROMEDICAL SERVICE ENGINEER.TRANSPLANT IMMUNOLOGIST [address] [place] [address] [facility] [address] [address] Referral ID Status Reason Start Date Expiration Date Visits Requested Visits Authorized [id number] Ref Not Required PCP Requested Referral 10/03/2023 10/02/2024 1 1 Referral ID Status Reason Start Date Expiration Date Visits Requested Visits Authorized [id number] Pending Review Auto-Generat ed Referral 05/24/2023 06/22/2024 1 1 Specialty Diagnoses / Procedures Referred By Patricia t Referred To [facility] Diagnoses Atrial fibrillation, persistent (HCC) Procedures ECG COMPLETE ECG ROUTINE ECG W/LEAST 12 LDS W/I&R Bear Rodarte MD [address] [place] [address] [facility] [place] [address] [place] [address] Referral ID Status Reason Start Date Expiration Date Visits Requested Visits Authorized [id number] Pending Review Auto-Generat ed Referral 05/24/2023 05/23/2024 1 1 Additional Source Comments INFORMATION SOURCE (unrecogn ized section and content) DATE CREATED AUTHOR 02/10/2018 [facility] DATE CREATED AUTHOR AUTHOR'S ORGANIZ ATION 09/07/2019 [facility] DATE CREATED AUTHOR AUTHOR'S ORGANIZ ATION 06/25/2022 [facility] DATE CREATED AUTHOR AUTHOR'S ORGANIZ ATION 05/03/2024 [facility] DATE CREATED AUTHOR AUTHOR'S ORGANIZ ATION 08/08/2024 [facility] DATE CREATED AUTHOR AUTHOR'S ORGANIZ ATION 12/30/2024 [facility] Source Comments (unrecognize d section and content) In the event this informatio n is protected by the Federal Confidentiality of Alcohol and Drug Abuse Patient Records regulations: The Federal rules restrict any use of the information to criminally investigate or prosecute any alcohol or drug abuse patient.[facility]In the event this information is protected by the Federal Confidentiality of Alcohol and Drug Abuse Patient Records regulations: The Federal rules restrict any use of the information to criminally investigate or prosecute any alcohol or drug abuse patient.[facility] HamiltonIn the event this information is protected by the Federal Confidentiality of Alcohol and Drug Abuse Patient Records regulations: The Federal rules restrict any use of the information to criminally investigate or prosecute any alcohol or drug abuse patient.[facility] HamiltonIn the event this information is protected by the Federal Confidentiality of Alcohol and Drug Abuse Patient Records regulations: The Federal rules restrict any use of the information to criminally investigate or prosecute any alcohol or drug abuse patient.[facility] HamiltonIn the event this information is protected by the Federal Confidentiality of Alcohol and Drug Abuse Patient Records regulations: The Federal rules restrict any use of the information to criminally investigate or prosecute any alcohol or drug abuse patient.[facility] HamiltonIn the event this information is protected by the Federal Confidentiality of Alcohol and Drug Abuse Patient Records regulations: The Federal rules restrict any use of the information to criminally investigate or prosecute any alcohol or drug abuse patient.[facility] HamiltonIn the event this information is protected by the Federal Confidentiality of Alcohol and Drug Abuse Patient Records regulations: The Federal rules restrict any use of the information to criminally investigate or prosecute any alcohol or drug abuse patient.[facility] HamiltonIn the event this information is protected by the Federal Confidentiality of Alcohol and Drug Abuse Patient Records regulations: The Federal rules restrict any use of the information to criminally investigate or prosecute any alcohol or drug abuse patient.[facility] HamiltonIn the event this information is protected by the Federal Confidentiality of Alcohol and Drug Abuse Patient Records regulations: The Federal rules restrict any use of the information to criminally investigate or prosecute any alcohol or drug abuse patient.[facility] HamiltonIn the event this information is protected by the Federal Confidentiality of Alcohol and Drug Abuse Patient Records regulations: The Federal rules restrict any use of the information to criminally investigate or prosecute any alcohol or drug abuse patient.[facility] HamiltonIn the event this information is protected by the Federal Confidentiality of Alcohol and Drug Abuse Patient Records regulations: The Federal rules restrict any use of the information to criminally investigate or prosecute any alcohol or drug abuse patient.[facility] HamiltonIn the event this information is protected by the Federal Confidentiality of Alcohol and Drug Abuse Patient Records regulations: The Federal rules restrict any use of the information to criminally investigate or prosecute any alcohol or drug abuse patient.[facility] HamiltonIn the event this information is protected by the Federal Confidentiality of Alcohol and Drug Abuse Patient Records regulations: The Federal rules restrict any use of the information to criminally investigate or prosecute any alcohol or drug abuse patient.[facility] HamiltonIn the event this information is protected by the Federal Confidentiality of Alcohol and Drug Abuse Patient Records regulations: The Federal rules restrict any use of the information to criminally investigate or prosecute any alcohol or drug abuse patient.[facility] HamiltonIn the event this information is protected by the Federal Confidentiality of Alcohol and Drug Abuse Patient Records regulations: The Federal rules restrict any use of the information to criminally investigate or prosecute any alcohol or drug abuse patient.[facility] HamiltonIn the event this information is protected by the Federal Confidentiality of Alcohol and Drug Abuse Patient Records regulations: The Federal rules restrict any use of the information to criminally investigate or prosecute any alcohol or drug abuse patient.[facility] HamiltonIn the event this information is protected by the Federal Confidentiality of Alcohol and Drug Abuse Patient Records regulations: The Federal rules restrict any use of the information to criminally investigate or prosecute any alcohol or drug abuse patient.[facility] HamiltonIn the event this information is protected by the Federal Confidentiality of Alcohol and Drug Abuse Patient Records regulations: The Federal rules restrict any use of the information to criminally investigate or prosecute any alcohol or drug abuse patient.[facility] HamiltonIn the event this information is protected by the Federal Confidentiality of Alcohol and Drug Abuse Patient Records regulations: The Federal rules restrict any use of the information to criminally investigate or prosecute any alcohol or drug abuse patient.[facility] HamiltonIn the event this information is protected by the Federal Confidentiality of Alcohol and Drug Abuse Patient Records regulations: The Federal rules restrict any use of the information to criminally investigate or prosecute any alcohol or drug abuse patient.[facility] HamiltonIn the event this information is protected by the Federal Confidentiality of Alcohol and Drug Abuse Patient Records regulations: The Federal rules restrict any use of the information to criminally investigate or prosecute any alcohol or drug abuse patient.[facility] HamiltonIn the event this information is protected by the Federal Confidentiality of Alcohol and Drug Abuse Patient Records regulations: The Federal rules restrict any use of the information to criminally investigate or prosecute any alcohol or drug abuse patient.[facility] HamiltonIn the event this information is protected by the Federal Confidentiality of Alcohol and Drug Abuse Patient Records regulations: The Federal rules restrict any use of the information to criminally investigate or prosecute any alcohol or drug abuse patient.[facility] HamiltonIn the event this information is protected by the Federal Confidentiality of Alcohol and Drug Abuse Patient Records regulations: The Federal rules restrict any use of the information to criminally investigate or prosecute any alcohol or drug abuse patient.[facility] HamiltonIn the event this information is protected by the Federal Confidentiality of Alcohol and Drug Abuse Patient Records regulations: The Federal rules restrict any use of the information to criminally investigate or prosecute any alcohol or drug abuse patient.[facility] HamiltonIn the event this information is protected by the Federal Confidentiality of Alcohol and Drug Abuse Patient Records regulations: The Federal rules restrict any use of the information to criminally investigate or prosecute any alcohol or drug abuse patient.[facility] HamiltonIn the event this information is protected by the Federal Confidentiality of Alcohol and Drug Abuse Patient Records regulations: The Federal rules restrict any use of the information to criminally investigate or prosecute any alcohol or drug abuse patient.[facility] HamiltonIn the event this information is protected by the Federal Confidentiality of Alcohol and Drug Abuse Patient Records regulations: The Federal rules restrict any use of the information to criminally investigate or prosecute any alcohol or drug abuse patient.[facility] HamiltonIn the event this information is protected by the Federal Confidentiality of Alcohol and Drug Abuse Patient Records regulations: The Federal rules restrict any use of the information to criminally investigate or prosecute any alcohol or drug abuse patient.[facility] HamiltonIn the event this information is protected by the Federal Confidentiality of Alcohol and Drug Abuse Patient Records regulations: The Federal rules restrict any use of the information to criminally investigate or prosecute any alcohol or drug abuse patient.[facility] HamiltonIn the event this information is protected by the Federal Confidentiality of Alcohol and Drug Abuse Patient Records regulations: The Federal rules restrict any use of the information to criminally investigate or prosecute any alcohol or drug abuse patient.[facility] HamiltonIn the event this information is protected by the Federal Confidentiality of Alcohol and Drug Abuse Patient Records regulations: The Federal rules restrict any use of the information to criminally investigate or prosecute any alcohol or drug abuse patient.[facility] HamiltonIn the event this information is protected by the Federal Confidentiality of Alcohol and Drug Abuse Patient Records regulations: The Federal rules restrict any use of the information to criminally investigate or prosecute any alcohol or drug abuse patient.[facility] Care Teams (unrecognized sec tion and content) Inspectors And Regulatory Officers Relationship Specialty Start Date End Date Yovana Pierre MD [address] [facility] [address] [place], [place] [address] PCP - General Family Practice 11/15/15 Vanessa Champagne MD Hematology/Oncology 03/01/15 Inspectors And Regulatory Officers Relationship Specialty Start Date End Date Yovana Pierre MD [address] [facility] [address] [place], [place] [id number] PCP - General Family Practice 11/15/15 Vanessa Champagne MD Hematology/Oncology 03/01/15 Inspectors And Regulatory Officers Relationship Specialty Start Date End Date Rachna Acosta DO [address] [place] [address] PCP - General Family Medicine 05/29/22 Team [...] Acosta DO Primary Care Provider Active LEX Hlil Attending Provider, Referring Prov ider Active Team [...] Dr. Magalie Fernandez MD Attending Provider Active Inspectors And Regulatory Officers Relationship Specialty Start Date End Date Rachna Acosta DO [address] [facility] [place] [address] PCP - General Family Medicine 03/18/23 Vanessa Champagne MD Hematology/Oncology 03/01/15 Marcelo Berry MD [address] [place] [address] Referring Cardiology 04/09/23 Inspectors And Regulatory Officers Relationship Specialty Start Date End Date Rachna Acosta DO [address] [place] [address] PCP - General Family Medicine 03/18/23 Vanessa Champagne MD Hematology/Oncology 03/01/15 Marcelo Berry MD [address] [place] [address] Referring Cardiology 04/09/23 Inspectors And Regulatory Officers Relationship Specialty Start Date End Date Rachna Acosta DO [address] [place] [address] PCP - General Family Medicine 03/18/23 Vanessa Champagne MD Hematology/Oncology 03/01/15 Marcelo Berry MD [address] [place] [address] Referring Cardiology 04/09/23 Inspectors And Regulatory Officers Relationship Specialty Start Date End Date Rachna Acosta DO [address] [place] [address] PCP - General Family Medicine 03/18/23 Vanessa Champagne MD Hematology/Oncology 03/01/15 Marcelo Berry MD [address] [place], [place] [address]- Referring Cardiology 04/09/23 Inspectors And Regulatory Officers Relationship Specialty Start Date End Date Dave Rachna RobersonDO [address] [place] [address] PCP - General Family Medicine 03/18/23 Vanessa Champagne MD Hematology/Oncology 03/01/15 Marcelo Berry MD [address] [place], [place] [address]- Referring Cardiology 04/09/23 Inspectors And Regulatory Officers Relationship Specialty Start Date End Date DaveAshleya DO [place] [address] [place] [address] PCP - General Family Medicine 03/18/23 Vanessa Champagne MD Hematology/Oncology 03/01/15 Marcelo Berry MD [address] [place] [address] Referring Cardiology 04/09/23 Inspectors And Regulatory Officers Relationship Specialty Start Date End Date Rachna Acosta DO [address] [place] [address] PCP - General Family Medicine 03/18/23 Vanessa Champagne MD Hematology/Oncology 03/01/15 Marcelo Berry MD [address] [place] [address] Referring Cardiology 04/09/23 Inspectors And Regulatory Officers Relationship Specialty Start Date End Date Rachna Acosta DO [address] [place] [address] PCP - General Family Medicine 03/18/23 Vanessa Champagne MD Hematology/Oncology 03/01/15 Marcelo Berry MD [address] [place] [address] Referring Cardiology 04/09/23 Inspectors And Regulatory Officers Relationship Specialty Start Date End Date Rachna Acosta DO [address] [place] [address] PCP - General Family Medicine 03/18/23 Vanessa Champagne MD Hematology/Oncology 03/01/15 Marcelo Berry MD [address] [place], [place] [address] Referring Cardiology 04/09/23 Inspectors And Regulatory Officers Relationship Specialty Start Date End Date Rachna Acosta DO [address] [place] [address] PCP - General Family Medicine 03/18/23 Vanessa Champagne MD Hematology/Oncology 03/01/15 Marcelo Berry MD [address] [place] [address] Referring Cardiology 04/09/23 Inspectors And Regulatory Officers Relationship Specialty Start Date End Date Rachna Acosta DO [address] [place] [address] PCP - General Family Medicine 03/18/23 Vanessa Champagne MD Hematology/Oncology 03/01/15 Marcelo Berry MD [address] [place] [address] Referring Cardiology 04/09/23 Inspectors And Regulatory Officers Relationship Specialty Start Date End Date Rachna Acosta DO [address] [place] [address] PCP - General Family Medicine 03/18/23 Vanessa Champagne MD Hematology/Oncology 03/01/15 Marcelo Berry MD [address] [place] [address] Referring Cardiology 04/09/23 Inspectors And Regulatory Officers Relationship Specialty Start Date End Date Rachna Acosta DO [address] [place] [address] PCP - General Family Medicine 03/18/23 Vanessa Champagne MD Hematology/Oncology 03/01/15 Marcelo Berry MD [address] [place], [place] [address] Referring Cardiology 04/09/23 Inspectors And Regulatory Officers Relationship Specialty Start Date End Date Rachna Acosta DO [address] [place] [address] PCP - General Family Medicine 03/18/23 Vanessa Champagne MD Hematology/Oncology 03/01/15 Marcelo eBrry MD [address] [address] Referring Cardiology 04/09/23 Team Status: Active Member [...] June 24, 2024 End: June 24, 2024 Inspectors And Regulatory Officers Relationship Specialty Start Date End Date Ashley Acostaa [place] [address] [place] [phone] PCP - General Family Medicine 03/04/23 Inspectors And Regulatory Officers Relationship Specialty Start Date End Date Dave Rachna Roberson [address] [place] [phone] PCP - General Family Medicine 03/04/23 Inspectors And Regulatory Officers Relationship Specialty Start Date End Date Ashley Acostakarol Roberson [address] [place] [phone] PCP - General Family Medicine 03/04/23 Team [...] 2024 End: August 18, 2024 Cinthia Kim PAWN SHOP KEEPER, PAWN SHOP KEEPER-C Attending Provider Active S tart: August 18, [...] Active Start: August 18, 2024 Cinthia Kim PAWN SHOP KEEPER, PAWN SHOP KEEPER-C Attending Provider Active S tart: August 18, 2024 Cinthia Kim PAWN SHOP KEEPER, PAWN SHOP KEEPER-C Referring Provider Active S tart: August 18, 2024 Team Status: Inactive Member Role/Relationship Status Dates Dr. Rachna Acosta DO Primary Care Provider Active Start: August 18, 2024 End: August 18, 2024 Cinthia Kim PAWN SHOP KEEPER, PAWN SHOP KEEPER-C Attending Provider Active S tart: August 18, 2024 End: August 18, 2024 Cinthia Kim PAWN SHOP KEEPER, PAWN SHOP KEEPER-C Referring Provider Active S tart: August 18, 2024 End: August 18, 2024 Team Status: Inactive Member Role/Relationship Status Dates Dr. Rachna Acosta DO Primary Care Provider Active Start: September 01, 2024 End: September 01, 2024 Cinthia Kim PAWN SHOP KEEPER, PAWN SHOP KEEPER-C Attending Provider Active S tart: September 01, 2024 End: September 01, 2024 Cinthia Kim PAWN SHOP KEEPER, PAWN SHOP KEEPER-C Referring Provider Active S tart: September 01, [...] 2024 End: August 18, 2024 Cinthia Kim PAWN SHOP KEEPER, PAWN SHOP KEEPER-C Attending Provider Active S tart: August 18, 2024 End: August 18, 2024 Team Status: Inactive Member Role/Relationship Status Dates Dr. Rachna Acosta DO Primary Care Provider Active Start: August 18, 2024 End: August 18, 2024 Cinthia Kim PAWN SHOP KEEPER, PAWN SHOP KEEPER-C Attending Provider Active S tart: August 18, 2024 End: August 18, 2024 Cinthia Kim PAWN SHOP KEEPER, PAWN SHOP KEEPER-C Referring Provider Active S tart: August 18, 2024 End: August 18, 2024 Team Status: Inactive Member Role/Relationship Status Dates Dr. Rachna Acosta DO Primary Care Provider Active Start: September 01, 2024 End: September 01, 2024 Cinthia Kim PAWN SHOP KEEPER, PAWN SHOP KEEPER-C Attending Provider Active S tart: September 01, 2024 End: September 01, 2024 Cinthia H Roof PAWN SHOP KEEPER, PAWN SHOP KEEPER-C Referring Provider Active S tart: September 01, 2024 End: September 01, 2024 Team Status: Inactive Member Role/Relationship Status Dates Dr. Rachna Acosta DO Primary Care Provider Active Start: October 01, 2024 End: October 01, 2024 Cinthia Kim PAWN SHOP KEEPER, PAWN SHOP KEEPER-C Attending Provider Active S tart: October 01, 2024 End: October 01, 2024 Cinthia Kim PAWN SHOP KEEPER, PAWN SHOP KEEPER-C Referring Provider Active S tart: October 01, [...] 2024 End: August 18, 2024 Cinthia Kim PAWN SHOP KEEPER, PAWN SHOP KEEPER-C Attending Provider Active S tart: August 18, 2024 End: August 18, 2024 Team Status: Inactive Member Role/Relationship Status Dates Dr. Rachna Acosta DO Primary Care Provider Active Start: August 18, 2024 End: August 18, 2024 Cinthia Kim PAWN SHOP KEEPER, PAWN SHOP KEEPER-C Attending Provider Active S tart: August 18, 2024 End: August 18, 2024 Cinthia Kim PAWN SHOP KEEPER, PAWN SHOP KEEPER-C Referring Provider Active S tart: August 18, 2024 End: August 18, 2024 Team Status: Inactive Member Role/Relationship Status Dates Dr. Rachna Acosta DO Primary Care Provider Active Start: September 01, 2024 End: September 01, 2024 Cinthia Kim PAWN SHOP KEEPER, PAWN SHOP KEEPER-C Attending Provider Active S tart: September 01, 2024 End: September 01, 2024 Cinthia Kim PAWN SHOP KEEPER, PAWN SHOP KEEPER-C Referring Provider Active S tart: September 01, 2024 End: September 01, 2024 Team Status: Inactive Member Role/Relationship Status Dates Dr. Rachna Acosta DO Primary Care Provider Active Start: October 01, 2024 End: October 01, 2024 Cinthia Kim PAWN SHOP KEEPER, PAWN SHOP KEEPER-C Attending Provider Active S tart: October 01, 2024 End: October 01, 2024 Cinthia Kim PAWN SHOP KEEPER, PAWN SHOP KEEPER-C Referring Provider Active S tart: October 01, 2024 End: October 01, 2024 Team Status: Inactive Member Role/Relationship Status Dates Dr. Rachna Acosta DO Primary Care Provider Active Start: November 03, 2024 End: November 03, 2024 Dr. Rachna Acosta DO Referring Provider Active St art: November 03, 2024 End: November 03, 2024 Cinthia Kim PAWN SHOP KEEPER, PAWN SHOP KEEPER-C Attending Provider Active S tart: November 03, [...] 2024 End: August 18, 2024 Cinthia Kim PAWN SHOP KEEPER, PAWN SHOP KEEPER-C Attending physician Active Start: August 18, 2024 End: August 18, 2024 Team Status: Inactive Member Role/Relationship Status Dates Dr. Rachna Acosta DO Primary care physician Active Start: August 18, 2024 End: August 18, 2024 Cinthia Kim PAWN SHOP KEEPER, PAWN SHOP KEEPER-C Attending physician Active Start: August 18, 2024 End: August 18, 2024 Cinthia Kim PAWN SHOP KEEPER, PAWN SHOP KEEPER-C Referring Provider Active S tart: August 18, 2024 End: August 18, 2024 Team Status: Inactive Member Role/Relationship Status Dates Dr. Rachna Acosta DO Primary care physician Active Start: September 01, 2024 End: September 01, 2024 Cinthia Kim PAWN SHOP KEEPER, PAWN SHOP KEEPER-C Attending physician Active Start: September 01, 2024 End: September 01, 2024 Cinthia Kim PAWN SHOP KEEPER, PAWN SHOP KEEPER-C Referring Provider Active S tart: September 01, 2024 End: September 01, 2024 Team Status: Inactive Member Role/Relationship Status Dates Dr. Rachna Acosta DO Primary care physician Active Start: October 01, 2024 End: October 01, 2024 Cinthia Kim PAWN SHOP KEEPER, PAWN SHOP KEEPER-C Attending physician Active Start: October 01, 2024 End: October 01, 2024 Cinthia Kim PAWN SHOP KEEPER, PAWN SHOP KEEPER-C Referring Provider Active S tart: October 01, 2024 End: October 01, 2024 Team Status: Inactive Member Role/Relationship Status Dates Dr. Rachna Acosta DO Primary care physician Active Start: November 03, 2024 End: November 03, 2024 Dr. Rachna Acosta DO Referring Provider Active St art: November 03, 2024 End: November 03, 2024 Cinthia Kim PAWN SHOP KEEPER, PAWN SHOP KEEPER-C Attending physician Active Start: November 03, 2024 End: November 03, 2024 Team Status: Inactive Member Role/Relationship Status Dates Dr. Rachna Acosta DO Primary care physician Active Start: November 03, 2024 End: November 03, 2024 Cinthia Kim PAWN SHOP KEEPER, PAWN SHOP KEEPER-C Attending physician Active Start: November 03, 2024 End: November 03, 2024 Cinthia Kim PAWN SHOP KEEPER, PAWN SHOP KEEPER-C Referring Provider Active S tart: November 03, [...] STRUCTURE&MORPH Bear Rodarte MD [address] [place] [address] [place] [address] Referral ID Status Reason Start Date Expiration Date V isits Requested Visits Authorized [id number] Closed Auto-Generate d Referral 05/24/2023 06/22/2024 1 1 Reason Comments Patient Education EPS - PVI/ AFL RFA Reason Comments Follow Up Phone Call Relate care dischar ge follow vs-[id number] clear Reason Comments Transmitter 90 days Reason [...] BE BASED ON THE PRIMARY CLINICAL RECORDS. [address] [facility] [email or web address] [phone] no warranty or guarantee [id number] the accuracy [phone] completeness of information in this [id number]
--- OUTSIDE RECORDS SUMMARY | 2025-02-12 00:17 | XMS RPT_ITS | CCD ---
Author Organization [facility] CliniSyri Care Team Providers Care Construction Equipment Operator Name Role Phone REHMUS, VANESSA H Unavailable [...] Provider Rachna Acosta DO Primary Care Provider ABHISHEK ANDREWS Attending Unavailable RACHNA ACOSTA Primary Care Unavailable RACHNA ACOSTA Primary Care Unavailable ABHISHEK ANDREWS Attending Unavailable Dr. Rachna Acosta Primary Care Provider [phone] Dr. Rachna Acosta Referring Provider [phone] Marcelo Berry Attending Provider [phone] Rachna Acosta Primary Care Provider [phone] Dr. Rachna Acosta Referring Provider Dr. Marcelo Berry Attending Provider [phone] Jarett DUMONT, TIM Vasquez Attending Provider Dr. Marcelo Berry Referring Provider [phone] Dr. Marcelo Berry Other Provider Dr. Alejandro Ruiz Attending Provider [phone] Magalie Fernandez Attending Provider [facility] Rachna Madera Primary Care Provider Dr. Marcelo Berry Attending Provider Dr. Rachna Acosta Referring Provider Mahi COLLADO, Vanessa Chaidez Unavailable Unava ilable Malys DO, Racnha A Primary Care Provider Marcelo Berry MD Unavailable Malys DO, Rachna A Primary Care Provider MALYS, RACHNA A Primary Care Unavailable TAIGEN, BEAR DARIN Attending Unavailable TAIGEN, BEAR DARIN Admitting Unavailable TAIGEN, BEAR DAIRN Referring Unavailable MALYS, RACHNA A Primary Care [...] Dr. Omar Greene DO Attending Provider [phone] Dave KIM, Dr. Briscoe Other Provider Peter FINISHED CIGAR MAKER-C, Amanda Attending Provider [phone] Malys, Rachna A Primary Care Provider EMETERIO MALCOLM Attending Unavailable EMETERIO MALCOLM Referring Unavailable MALYS, RACHNA Primary Care Unavailable EMETERIO MALCOLM Attending Unavailable MALYS, RACHNA Primary Care Unavailable Malys DO, Dr. Briscoe Primary Care Provider Dave DO, Dr. Briscoe Attending Provider [phone] Malgabbi DO, Dr. Briscoe Referring Provider EMETERIO MALCOLM Attending Provider EMETERIO MALCOLM Referring Provider Roof FINISHED CIGAR MAKER-C, Cinthia Huntley Attending Provider Roof FINISHED CIGAR MAKER-C, Cinthia Huntley Referring Provider Dave DO, Dr. Briscoe Primary Care Provider Dvae DO, Dr. Briscoe Attending Provider [phone] Dave DO, Dr. Briscoe Referring Provider Malgabbi DO, Dr. Briscoe Primary Care Provider [phone] Dave DO, Dr. Briscoe Referring Provider Dave DO, Dr. Briscoe Primary Care Physician EMETERIO MALCOLM Attending Physician Roof FINISHED CIGAR MAKER-C, Cinthia Huntley Attending Physician [phone] Malys, Rachna Attending Unavailable Malys, Rachna Primary Care Unavailable Malys, Rachna Primary Care Unavailable Malys, Rachna Referring Unavailable Malys, Rachna Attending Unavailable Malys, Rachna Attending Unavailable Malys, Rachna Primary Care Unavailable Malys, Rachna Referring Unavailable Jarett DUMONT, Hazel Vasquez Consulting Unavail able Kristi, Marcelo Attending Unavailable Malys, Rachna Primary Care Unavailable Roof FINISHED CIGAR MAKER, Cinthia Huntley Attending Unavailable Roof FINISHED CIGAR MAKER, Cinthia Huntley Referring Unavailable Malys, Rachna Primary Care Unavailable Malys, Rachna Attending Unavailable Malys, Rachna Primary Care Unavailable Malys, Rachna Referring Unavailable Roof FINISHED CIGAR MAKER, Cinthia H Referring Unavailable Malys, Rachna Primary Care Unavailable Roof FINISHED CIGAR MAKER, Cinthia Huntley Attending Unavailable Malys, Rachna Attending Unavailable Malys, Rachna Referring Unavailable Malys, Rachna Primary Care Unavailable Malys, Rachna Primary Care Unavailable Jarett DUMONT, Hazel Vasquez Referring Unavail able Jarett DUMONT, Hazel Vasquez Attending Unavail able Amanda Green Attending Unavailable Malys, Rachna Primary Care Unavailable Malys, Rachna Consulting Unavailable Malys, Rachna Referring Unavailable Roof FINISHED CIGAR MAKER, Cinthia Huntley Attending Unavailable Malys, Rachna Referring [...] DUMONT, Hazel Vasquez Attending Unavail able Roof FINISHED CIGAR MAKER, Cinthia Huntley Attending Unavailable Malys, Rachna Primary Care Unavailable Malys, Rachna Referring Unavailable Malys, Rachna Referring Unavailable Malys, Rachna Primary Care Unavailable Faith Orta Attending Unavailable Malys, Rachna Primary Care Unavailable All Shay Referring Unavailable All Shay Attending Unavailable Roof FINISHED CIGAR MAKER, Cinthia H Referring Unavailable Roof FINISHED CIGAR MAKER, Cinthia Huntley Attending Unavailable Malys, Rachna Primary Care Unavailable Roof FINISHED CIGAR MAKER, Cinthia H Referring Unavailable Roof FINISHED CIGAR MAKER, Cinthia H Attending Unavailable Malys, Rachna Primary Care Unavailable Malys, Rachna Primary Care Unavailable Jarett DUMONT, Hazel Vasquez Referring Unavail able Jarett DUMONT, Hazel Vasquez Attending Unavail able Allergies Allergy Classification Reported Allergen(s) Allergy Type Date of Onset Reaction(s) Facility (1 source) Amoxicillin Drug Allergy 03-06-2024 [facility] Repository (1 source) Clavulanate Drug Allergy 03-06-2024 [facility] Repository Medications Current Medications Medication Drug Class(es) [...] of unspecified wall of thorax, initial encounter [id number] actuat albuterol 0.09 mg/actuat metered dose [...] (4 sources) Drug therapy finding; Translations: [Other fdc (current) drug therapy] Onset: 10-03-2023 06-26-2023 Episodic [...] Viewson 0 L/S Spine Min 4 Views [facility] Imaging Services [address] [place], [place] [address] L/S Spine Min 4 Views MR#: [id number] Acct: [id number] Name: CRISELDA STORM Rep #: [id number] : 1945 F 79 From: Vince Snowden MD PCP: Dr. Rachna Acosta DO Status: REG CLI Study: L/S Spine Min 4 Views Date of Exam: 12/25/24 Exam# [id number] Ordering Dr: Rachna Acosta DO PROCEDURE: L/S [...] compression deformities of undetermined age. Reading Location: [facility] CC: Dr. Rachna Acosta DO Band Tacker: Signed Normal [facility] Cardiology Visit Reporton Cardiology Visit Report [facility] [address] [place] [address] OFFICE VISIT Date of Service: 11/03/24 MR#: [id number] Acct: [id number] Name: CRISELDA STORM Rep #: [id number] : 1945 Provider: LEX minaya Age/Sex: 79/F Location[place] [facility] Status: Signed HPI HPI History of Present [...] referred to EP. She was evaluated at [facility] in 03/2023. It was recommended that they [...] an echocardiogram done in March 2023 at [facility]. Ejection fraction was noted to be 58%. [...] Intake Visit Reasons: 1 Y FU/MOVED FROM [facility] Computer Programming Supervisor Required: No Accompanied by: Daughter Is patient [...] DAILY weigh (more content not included)... Normal [facility] Chest PA and Lateralon 11-03 Chest PA and Lateral [facility] Imaging Services [address] [place], [place] [id number] Chest PA and Lateral MR#: [id number] Acct: [id number] Name: CRISELDA STORM Rep #: [id number] : 1945 F 79 From: Luis Woodward MD PCP: Dr. Rachna Acosta DO Status: REG CLI Study: Chest PA and Lateral Date of Exam: 11/03/24 Exam# [id number] Ordering Dr: Cinthia Kim FINISHED CIGAR MAKER FINISHED CIGAR MAKER-C PROCEDURE: CHEST PA AND LATERAL 11/03/2024 REASON [...] and pleural fluid. No pneumothorax. Reading Location: [id number] CC: FINISHED CIGAR MAKER-C Cinthia Kim; Dr. Rachna Acosta DO Band Tacker: Signed Normal [facility] Absolute lymphocyte countOrd ered By: Cinthia Kim on 10-01-2024 Lymphocytes Auto (Unsp spec) [#/Vol] 0.68 10*3/uL Low 0.83-4.51 [facility] Absolute neutrophil countOrd ered By: Cinthia Kim on 10-01-2024 Neutrophils (Bld) [#/Vol] 4.4 10*3/uL 2.0-7.7 [facility] Anion gap in Serum or Plasma Ordered By: Cinthia Kim on 10-01-2024 Anion gap [Moles/Vol] 15 mmol/L 5-15 [facility] Automated lymphocyte count a s percentage of total leukocytesOrdered By: Cinthia Kim on 10-01-2024 Lymphocytes/100 WBC Auto (Unsp spec) 11.5 % Low 19-41 [facility] BUN/creatinine ratioOrdered By: Cinthia Julio on 10-01-2024 Urea nitrogen/Creatinine [Mass ratio] 23.2 mg/mg High 10-20 [facility] Basic Metabolic Profile (BMP )on 10-01-2024 BUN/CRE 23.2 RATIO High 10-20 [facility] Comment on above: Performed By: #### L 503.7505, L100.0100, L500.2500 #### [facility] [address] [place], [address] Calcium [Mass/Vol] 9.7 mg/dL Normal 7.6-11.0 [facility] Comment on above: Performed By: #### L 503.7505, L100.0100, L500.2500 #### [facility] [address] [place], [address] Chloride [Moles/Vol] 94 mmol/L Low 98-108 [facility] Comment on above: Performed By: #### L 503.7505, L100.0100, L500.2500 #### [facility] [address] [place], [address] CO2 [Moles/Vol] 25.5 mmol/L Normal 21.0-32.0 [facility] Comment on above: Performed By: #### L 503.7505, L100.0100, L500.2500 #### [facility] [address] [place], [address] Creatinine [Mass/Vol] 0.83 mg/dL Normal 0.70-1.20 [facility] Comment on above: Performed By: #### L 503.7505, L100.0100, L500.2500 #### [facility] [address] [place], [address] GAP 15 Normal 5-15 [facility] Comment on above: Performed By: #### L 503.7505, L100.0100, L500.2500 #### [facility] [address] [place], [address] GFR/1.73 sq M.predicted among non-blacks MDRD (S/P/Bld) [Vol rate/Area] 72 mL/min/{1.73_m2} Normal >60 [facility] Comment on above: Result Comment: mL/m in/1.73m2 CKD-EPI Creatinine Equation (2020) Performed By: #### L 503.7505, L100.0100, L500.2500 #### [facility] [address] [place], [address] Glucose [Mass/Vol] 90 mg/dL Normal 70-99 [facility] Comment on above: Performed By: #### L 503.7505, L100.0100, L500.2500 #### [facility] [address] [place], [address] Potassium [Moles/Vol] 4.4 mmol/L Normal 3.3-5.1 [facility] Comment on above: Performed By: #### L 503.7505, L100.0100, L500.2500 #### [facility] [address] [place], [address] Sodium [Moles/Vol] 134 mmol/L Normal 133-145 [facility] Comment on above: Performed By: #### L 503.7505, L100.0100, L500.2500 #### [facility] [address] [place], [address] Urea nitrogen [Mass/Vol] 19 mg/dL Normal 4-19 [facility] Comment on above: Performed By: #### L 503.7505, L100.0100, L500.2500 #### [facility] [address] [place], [address] Basophil percentageOrdered B y: Cinthia Kim on 10-01-2024 Basophils/100 WBC (Bld) 1.2 % High 0-1 [facility] CBC W/Diff, Automatedon 09-18 Absolute Lymph 0.68 X10 3/uL Low 0.83-4.51 [facility] Comment on above: Performed By: #### L 503.7505, L100.0100, L500.2500 #### [facility] [address] [place], [address] Absolute Neut 4.4 X10 3/uL Normal 2.0-7.7 [facility] Comment on above: Performed By: #### L 503.7505, L100.0100, L500.2500 #### [facility] [address] [place], [address] Basophils/100 WBC (Bld) 1.2 % High 0-1 [facility] Comment on above: Performed By: #### L 503.7505, L100.0100, L500.2500 #### [facility] [address] [place], [address] Eosinophils/100 WBC (Bld) 2.2 % Normal 0-5 [facility] Comment on above: Performed By: #### L 503.7505, L100.0100, L500.2500 #### [facility] [address] [place], [address] Erythrocyte distribution width (RBC) [Ratio] 14.2 % Normal 11.6-14.6 [facility] Comment on above: Performed By: #### L 503.7505, L100.0100, L500.2500 #### [facility] [address] [place], [address] Hematocrit (Bld) [Volume fraction] 36.5 % Low 37-47 [facility] Comment on above: Performed By: #### L 503.7505, L100.0100, L500.2500 #### [facility] [address] [place], [address] Hemoglobin (Bld) [Mass/Vol] 11.9 g/dL Low 12.0-15.0 [facility] Comment on above: Performed By: #### L 503.7505, L100.0100, L500.2500 #### [facility] [address] [place], [address] IG% 0.500 Normal 0.0-0.9 [facility] Comment on above: Result Comment: IG% - Immature Granulocytes (promyelocytes, myelocytes and metamyelocytes) > 1% indicates that a LEFT SHIFT is Present. Performed By: #### L 503.7505, L100.0100, L500.2500 #### [facility] [address] [place], [address] Lymphocytes/100 WBC (Bld) 11.5 % Low 19-41 [facility] Comment on above: Performed By: #### L 503.7505, L100.0100, L500.2500 #### [facility] [address] [place], [address] MCH (RBC) [Entitic mass] 30.6 pg Normal 27.0-32.0 [facility] Comment on above: Performed By: #### L 503.7505, L100.0100, L500.2500 #### [facility] [address] [place], [address] MCHC (RBC) [Mass/Vol] 32.6 g/dL Normal 32-36 [facility] Comment on above: Performed By: #### L 503.7505, L100.0100, L500.2500 #### [facility] [address] [place], [address] MCV (RBC) [Entitic vol] 93.8 fL Normal 81-99 [facility] Comment on above: Performed By: #### L 503.7505, L100.0100, L500.2500 #### [facility] [address] [place], [address] Monocytes/100 WBC (Bld) 10.7 % High 0-10 [facility] Comment on above: Performed By: #### L 503.7505, L100.0100, L500.2500 #### [facility] [address] [place], [address] Neutrophils/100 WBC (Bld) 73.9 % High 47-70 [facility] Comment on above: Performed By: #### L 503.7505, L100.0100, L500.2500 #### [facility] [address] [place], [address] Nucleated RBC (Bld) [#/Vol] 0 10*3/uL Normal 0-5 [facility] Comment on above: Performed By: #### L 503.7505, L100.0100, L500.2500 #### [facility] [address] [place], [address] Platelet mean volume (Bld) [Entitic vol] 9.9 fL Normal 6.2-12.0 [facility] Comment on above: Performed By: #### L 503.7505, L100.0100, L500.2500 #### [facility] [address] [place], [address] Platelets (Bld) [#/Vol] 551 10*3/uL High 150-450 [facility] Comment on above: Performed By: #### L 503.7505, L100.0100, L500.2500 #### [facility] [address] [place], [address] RBC (Bld) [#/Vol] 3.89 10*6/uL Low 4.2-5.[address] [facility] Comment on above: Performed By: #### L 503.7505, L100.0100, L500.2500 #### [facility] [address] [place], [address] RDW SD 49.1 fl High 35.1-43.9 [facility] Comment on above: Performed By: #### L 503.7505, L100.0100, L500.2500 #### [facility] [address] [place], [address] WBC (Bld) [#/Vol] 5.9 10*3/uL Normal 4.4-11.0 [facility] Comment on above: Performed By: #### L 503.7505, L100.0100, L500.2500 #### [facility] [address] [place], [address] Carbon dioxide, total [Moles /volume] in Central venous bloodOrdered By: Cinthia Kim on 10-01-2024 CO2 [Moles/Vol] 25.5 mmol/L 21.0-32.0 [facility] Chest PA and Lateralon 10-01 Chest PA and Lateral [facility] Imaging Services [address] [place] [address] Chest PA and Lateral MR#: [id number] Acct: [id number] Name: CRISELDA STORM Rep #: [id number] : 1945 F 79 From: Dorian Silva MD PCP: Dr. Rachna Acosta, DO Status: REG CLI Study: Chest PA and Lateral Date of Exam: 10/01/24 Exam# [id number] Ordering Dr: Cinthia Kim FINISHED CIGAR MAKER FINISHED CIGAR MAKER-C PROCEDURE: CHEST PA AND LATERAL 10/01/2024 REASON [...] study. Small left pleural effusion. Reading Location: [id number] CC: LEX Kim; Dr. Rachna Acosta DO Band Tacker: Signed Normal [facility] Chloride assayOrdered By: Hailey Kim on 10-01-2024 Chloride [Moles/Vol] 94 mmol/L Low 98-108 [facility] Eosinophil percentageOrdered By: Cinthia Kim on 10-01-2024 Eosinophils/100 WBC (Bld) 2.2 % 0-5 [facility] Erythrocyte distribution wid th ratioOrdered By: Cinthia Kim on 10-01-2024 Erythrocyte distribution width (RBC) [Ratio] 14.2 % 11.6-14.6 [facility] Erythrocyte distribution wid th standard deviationOrdered By: Cinthia Kim on 10-01-2024 Erythrocyte distribution width (RBC) [Ratio] 49.1 fl High 35.1-43.9 [facility] Fecal Fat, Qualitativeon FATS, NEUTRAL Normal [facility] Comment on above: Result Comment: OLD STOOL ORDERED. PATIENT NO LONGER NEEDS TO DO THEM Performed By: #### L 7000.0300 #### [facility] [address] [place], [place], [address] FATS, TOTAL Normal [facility] Comment on above: Result Comment: OLD STOOL ORDERED. PATIENT NO LONGER NEEDS TO DO THEM Performed By: #### L 7000.0300 #### [facility] [address] [place], [place], [address] Glomerular filtration rate ( GFR) estimation/1.73 sq m using serum, plasma, or whole bOrdered By: Cinthia Kim on 10-01-2024 GFR/1.73 sq M.predicted among non-blacks MDRD (S/P/Bld) [Vol rate/Area] 72 mL/min/{1.73_m2} >60 [facility] Comment on above: mL/min/1.73m2 CKD-EP I Creatinine Equation (2020) Hematocrit Auto (Bld) [Volum e fraction]Ordered By: Cinthia Kim on 10-01-2024 Hematocrit (Bld) [Volume fraction] 36.5 % Low 37-47 [facility] Hemoglobin measurementOrdere d By: Cinthia Kim on 10-01-2024 Hemoglobin (Bld) [Mass/Vol] 11.9 g/dL Low 12.0-15.0 [facility] Immature granulocytes/100 WB C Auto (Bld)Ordered By: Cinthia Kim on 10-01-2024 Immature granulocytes/100 WBC (Bld) 0.500 % 0.0-0.9 [facility] Comment on above: IG% - Immature Granu locytes (promyelocytes, myelocytes and metamyelocytes) > 1% indicates that a LEFT SHIFT is Present. MCV (mean corpuscular volume ) determinationOrdered By: Cinthia Kim on 10-01-2024 MCV (RBC) [Entitic vol] 93.8 fL 81-99 [facility] Mean corpuscular hemoglobin (MCH) determinationOrdered By: Cinthia Kim on 10-01-2024 MCH (RBC) [Entitic mass] 30.6 pg 27.0-32.0 [facility] Mean corpuscular hemoglobin concentration (MCHC) determinationOrdered By: Cinthia Kim on 10-01-2024 MCHC (RBC) [Mass/Vol] 32.6 g/dL 32-36 [facility] Mean platelet volume determi nationOrdered By: Cinthia Kim on 10-01-2024 Platelet mean volume (Bld) [Entitic vol] 9.9 fL 6.2-12.0 [facility] Monocyte percentageOrdered B y: Cinthia Kim on 10-01-2024 Monocytes/100 WBC (Bld) 10.7 % High 0-10 [facility] Natriuretic peptide.B prohor ho N-Terminal [Mass/volume] in Serum or PlasmaOrdered By: Cinthia Kim on 10-01-2024 Natriuretic peptide.B prohormone N-Terminal [Mass/Vol] 1877 pg/mL High <1800 [facility] Comment on above: Heart Failure Unlike ly: < 300 pg/mLHeart Failure Likely< 50 Years: > 450 pg/mL50-75 Years: > 900 pg/mL>75 Years: > 1800 pg/mL Neutrophil percentageOrdered By: Cinthia Kim on 10-01-2024 Neutrophils/100 WBC (Bld) 73.9 % High 47-70 [facility] Nucleated red blood cell per centageOrdered By: Cinthia Kim on 10-01-2024 Nucleated RBC/100 WBC (Bld) [Ratio] 0 % 0-5 [facility] Platelet countOrdered By: Hailey Kim on 10-01-2024 Platelets (Bld) [#/Vol] 551 10*3/uL High 150-450 [facility] Potassium measurement (mass/ volume)Ordered By: Cinthia Kim on 10-01-2024 Potassium (Unsp spec) [Mass/Vol] 4.4 mmol/L 3.3-5.1 [facility] Pro- Brain NATRIURETIC PEPTI Quintin 10-01-2024 Natriuretic peptide B (Bld) [Mass/Vol] 1877 pg/mL High <=1800 [facility] Comment on above: Result Comment: Hear t Failure Unlikely: < 300 pg/mL Heart Failure Likely < 50 Years: > 450 pg/mL 50-75 Years: > 900 pg/mL >75 Years: > 1800 pg/mL Performed By: #### L 503.7505, L100.0100, L500.2500 #### [facility] [address] [place], [address] RBC Auto (Bld) [#/Vol]Ordere d By: Cinthia Kim on 10-01-2024 RBC (Bld) [#/Vol] 3.89 10*6/uL Low 4.2-5.[address] [facility] Serum creatinine measurement (mass/volume)Ordered By: Cinthia Kim on 10-01-2024 Creatinine [Mass/Vol] 0.83 mg/dL 0.70-1.20 [facility] Serum glucose measurement (m ass/volume)Ordered By: Cinthia Kim on 10-01-2024 Glucose [Mass/Vol] 90 mg/dL 70-99 [facility] Serum or plasma calcium ollie urement (mass/volume)Ordered By: Cinthia Kim on 10-01-2024 Calcium [Mass/Vol] 9.7 mg/dL 7.6-11.0 [facility] Serum or plasma urea nitroge n measurement (mass/volume)Ordered By: Cinthia Kim on 10-01-2024 Urea nitrogen [Mass/Vol] 19 mg/dL 4-19 [facility] Sodium levelOrdered By: Cinthia Kim on 10-01-2024 Sodium [Moles/Vol] 134 mmol/L 133-145 [facility] White blood cell (WBC) count Ordered By: Cinthia Kim on 10-01-2024 WBC (Bld) [#/Vol] 5.9 10*3/uL 4.4-11.0 [facility] Chest PA and Lateralon 09-01 Chest PA and Lateral [facility] Imaging Services [address] [place], [place] [address] Chest PA and Lateral MR#: [id number] Acct: [id number] Name: CRISELDA STORM Rep #: [id number] : 1945 F 79 From: José Miguel Noland MD PCP: Dr. Rachna Acosta DO Status: REG CLI Study: Chest PA and Lateral Date of Exam: 09/01/24 Exam# [id number] Ordering Dr: Cinthia Kim FINISHED CIGAR MAKER FINISHED CIGAR MAKER-C EXAM: XR Chest, 2 Views CLINICAL INDICATION: [...] pneumonia. 2. Left pleural effusion. Reading [facility] CC: FINISHED CIGAR MAKER-C Cinthia Kim; Dr. Rachna Acosta DO Band Tacker: Signed Normal [facility] Cardiology Visit Reporton Cardiology Visit Report [facility] [address] [place] [address] OFFICE VISIT Date of Service: 08/18/24 MR#: [id number] Acct: [id number] Name: CRISELDA STORM Rep #: [id number] : 1945 Provider: LEX minaya Age/Sex: 79/F Location: [facility] Status: Signed HPI HPI History of Present [...] referred to EP. She was evaluated at [facility] in 03/2023. It was recommended that they [...] an echocardiogram done in March 2023 at [facility]. Ejection fraction was noted to be 58%. [...] Intake Visit Reasons: See clinical note: thoracentesis Computer Programming Supervisor Required: No Is patient in pain?: No [...] PRN 08/18/24 (more content not included)... Normal [facility] Chest PA and Lateralon 08-18 Chest PA and Lateral [facility] Imaging Services [address] [place] [address] Chest PA and Lateral MR#: [id number] Acct: [id number] Name: EMETERIOCRISELDA Christina Rep #: [id number] : 1945 F 79 From: Abhay Lala MD PCP: Dr. Rachna Acosta, Status: REG CLI Study: Chest PA and Lateral Date of Exam: 08/18/24 Exam# [id number] Ordering Dr: Cinthia Kim FINISHED CIGAR MAKER FINISHED CIGAR MAKER-C PROCEDURE: CHEST PA AND LATERAL 08/18/2024 REASON [...] right base faint airspace disease. Reading Location: [place] [address] CC: LEX Kim; Dr. Rachna Acosta DO Band Tacker: Signed [facility] Thoracentesis W USon 025 Thoracentesis W US [facility] Imaging Services [address] [place] [address] Thoracentesis W US MR#: [id number] Acct: [id number] Name: CRISELDA STORM Rep #: [id number] : 1945 F 79 From: Juve Haque PCP: Dr. Rachna Acosta DO Status: REG CLI Study: Thoracentesis W US Date of Exam: 08/14/24 Exam# [id number] Ordering Dr: EMETERIO MALCOLM PROCEDURE: THORACENTESIS W US 08/14/2024 REASON FOR EXAM: RECURRENT PLEURAL EFFUSION TECHNIQUE: THORACENTESIS W US, left COMPARISON: Prior thoracentesis of 06/03/2024. FINDINGS: Following informed consent, and using standard sterile technique, an ultrasound-guided left thoracentesis was performed via a posterior approach. 2% lidocaine local anesthesia was followed by placement of a 5 Nauruan catheter into the fluid collection. Approximately 650 mL slightly blood-tinged fluid was successfully removed. No complication was encountered, the patient left the department good condition without significant complaint. US/Thoracentesis W US IMPRESSION: Successful left sided ultrasound-guided therapeutic thoracentesis. Reading Location: [place] [address] CC: Dr. Rachna Acosta DO; EMETERIO MALCOLM Band Tacker: Signed [facility] 08-05-2024 36 Pt daughter called requesting thoracentesis order faxed to [place]. Order faxed. Pt daughter states she is scheduling at [place] and will follow up with pt PCP unless her mom decides on a different route. [facility] 08-03-2024 36 Spoke to daughter wh o states they would prefer to call central scheduling due to her work schedule. Number given. [facility] 07-30-[address] Malcolm reviewed results with Coco, patient's daughter, per patient's request. Per Dr. Malcolm, plan is to schedule a thoracentesis for patient and she will call our office prn. [facility] 36on 07-29-2024 36 Name of caller: Coco Contact phone number: [phone] Relationship to Patient: Daughter Provider: Dr. Malcolm Practice: Cardiothoracic Chief Complaint/Reason for Call: Patient daughter requesting a callback to discuss imaging results of chest CT. Please advise. Best time of day caller can be reached: Any Patient advised that office/PCP has 24-48 business hours to return their call: Yes' [facility] CT CHEST W IV CONTRASTon CT CHEST W IV CONTRAST Patient Name[facility] 1945 [id number] Exam Date/Time: 07/22/2024 12:34 Procedure: CT CHEST [...] to the fourth, fifth, and sixth ribs. Journey Lineman thickness of 2.3 cm in the fourth [...] 4:39 PM EDT F/U PLEURAL EFFUSION Normal [facility] Office Visiton 07-16-2024 Follow-up visit [id number] Criselda Storm 1945 F Date Provider Department Center 07/16/2024 42117-VMJSHAEMETERIO CEBALLOS [facility] CT None No family history on file Level of Service:71746 CO OFFICE/OP CONSLTJ NEW/EST PT MOD MDM 40 MINUTES Reason for Visit and Comments: New Patient [542] Normal [facility] Progress Noteon 07-16-[address] [facility] MEDICAL [facility] CARDIOVASCULAR & THORACIC SURGERY [address] [facility] [address] [facility] [address] Dept: [phone] Dept Loc: [phone] Visit type: New Reason for Visit: Pleural [...] and office visit notes from cardiology in [place]. Even without this information I did propose [...] History Marital status: ? Work history: Retired [place] status: Never Served Social History[4] Allergies Allergies[5] [...] content gonzalo (more content not included)... Normal [facility] Absolute lymphocyte countOrd ered By: Rachna Acosta on 06-24-2024 Lymphocytes Auto (Unsp spec) [#/Vol] 0.99 10*3/uL 0.83-4.51 [facility] Absolute neutrophil countOrd ered By: Rachna Acosta on 06-24-2024 Neutrophils (Bld) [#/Vol] 3.8 10*3/uL 2.0-7.7 [facility] Anion gap in Serum or Plasma Ordered By: Rachna Acosta on 06-24-2024 Anion gap [Moles/Vol] 17 mmol/L High 5-15 [facility] Automated lymphocyte count a s percentage of total leukocytesOrdered By: Rachna Acosta on 06-24-2024 Lymphocytes/100 WBC Auto (Unsp spec) 17.0 % Low 19-41 [facility] BUN/creatinine ratioOrdered By: Rachna Acosta on 06-24-2024 Urea nitrogen/Creatinine [Mass ratio] 19.5 mg/mg 10-20 [facility] Basophil percentageOrdered B y: Rachna Acosta on 06-24-2024 Basophils/100 WBC (Bld) 1.5 % High 0-1 [facility] Bilirubin, totalOrdered By: Rachna Acosta on 06-24-2024 Bilirubin [Mass/Vol] 0.44 mg/dL 0.00-1.30 [facility] CBC W/Diff, Automatedon Absolute Lymph 0.99 X10 3/uL Normal 0.83-4.51 [facility] Comment on above: Performed By: #### L 501.9520, L100.0100, L500.4050 ####[facility] [address] [place], [address] Absolute Neut 3.8 X10 3/uL Normal 2.0-7.7 [facility] Comment on above: Performed By: #### L 501.9520, L100.0100, L500.4050 ####[facility] [address] [place], [address] Basophils/100 WBC (Bld) 1.5 % High 0-1 [facility] Comment on above: Performed By: #### L 501.9520, L100.0100, L500.4050 ####[facility] [address] [place], [address] Eosinophils/100 WBC (Bld) 2.9 % Normal 0-5 [facility] Comment on above: Performed By: #### L 501.9520, L100.0100, L500.4050 ####[facility] [address] [place], [address] Erythrocyte distribution width (RBC) [Ratio] 14.3 % Normal 11.6-14.6 [facility] Comment on above: Performed By: #### L 501.9520, L100.0100, L500.4050 ####[facility] [address] [place], [address] Hematocrit (Bld) [Volume fraction] 37.8 % Normal 37-47 [facility] Comment on above: Performed By: #### L 501.9520, L100.0100, L500.4050 ####[facility] [address] [place], [address] Hemoglobin (Bld) [Mass/Vol] 12.3 g/dL Normal 12.0-15.0 [facility] Comment on above: Performed By: #### L 501.9520, L100.0100, L500.4050 ####[facility] [address] [place], [address] IG% 0.300 Normal 0.0-0.9 [facility] Comment on above: Result Comment: IG% - Immature Granulocytes (promyelocytes, myelocytes and metamyelocytes) > 1% indicates that a LEFT SHIFT is Present. Performed By: #### L 501.9520, L100.0100, L500.4050 ####[facility] [address] [place], [address] Lymphocytes/100 WBC (Bld) 17.0 % Low 19-41 [facility] Comment on above: Performed By: #### L 501.9520, L100.0100, L500.4050 ####[facility] [address] [place], [address] MCH (RBC) [Entitic mass] 30.9 pg Normal 27.0-32.0 [facility] Comment on above: Performed By: #### L 501.9520, L100.0100, L500.4050 ####[facility] [address] [place], [address] MCHC (RBC) [Mass/Vol] 32.5 g/dL Normal 32-36 [facility] Comment on above: Performed By: #### L 501.9520, L100.0100, L500.4050 ####[facility] [address] [place], [address] MCV (RBC) [Entitic vol] 95.0 fL Normal 81-99 [facility] Comment on above: Performed By: #### L 501.9520, L100.0100, L500.4050 ####[facility] [address] [place], [address] Monocytes/100 WBC (Bld) 12.5 % High 0-10 [facility] Comment on above: Performed By: #### L 501.9520, L100.0100, L500.4050 ####[facility] [address] [place], [address] Neutrophils/100 WBC (Bld) 65.8 % Normal 47-70 [facility] Comment on above: Performed By: #### L 501.9520, L100.0100, L500.4050 ####[facility] [address] [place], [address] Nucleated RBC (Bld) [#/Vol] 0 10*3/uL Normal 0-5 [facility] Comment on above: Performed By: #### L 501.9520, L100.0100, L500.4050 ####[facility] [address] [place], [address] Platelet mean volume (Bld) [Entitic vol] 10.5 fL Normal 6.2-12.0 [facility] Comment on above: Performed By: #### L 501.9520, L100.0100, L500.4050 ####[facility] [address] [place], [address] Platelets (Bld) [#/Vol] 395 10*3/uL Normal 150-450 [facility] Comment on above: Performed By: #### L 501.9520, L100.0100, L500.4050 ####[facility] [address] [place], [address] RBC (Bld) [#/Vol] 3.98 10*6/uL Low 4.2-5.[address] [facility] Comment on above: Performed By: #### L 501.9520, L100.0100, L500.4050 ####[facility] [address] [place], [address] RDW SD 49.5 fl High 35.1-43.9 [facility] Comment on above: Performed By: #### L 501.9520, L100.0100, L500.4050 ####[facility] [address] [place], [address] WBC (Bld) [#/Vol] 5.8 10*3/uL Normal 4.4-11.0 [facility] Comment on above: Performed By: #### L 501.9520, L100.0100, L500.4050 ####[facility] [address] [place], [address] Carbon dioxide, total [Moles /volume] in Central venous bloodOrdered By: Rachna Acosta on 06-24-2024 CO2 [Moles/Vol] 20.4 mmol/L Low 21.0-32.0 [facility] Chest PA and Lateralon 06-24 Chest PA and Lateral [facility] Imaging Services [address] [place] [address] Chest PA and Lateral MR#: [id number] Acct: [id number] Name: CRISELDA STORM Rep #: [id number] : 1945 F 79 From: John Berrios i, MD PCP: Dr. Rachna Acosta DO Status: REG CLI Study: Chest PA and Lateral Date of Exam: 06/24/24 Exam# [id number] Ordering Dr: Rachna Acosta DO PROCEDURE: CHEST [...] can not be ruled out. Reading Location: [id number] CC: Dr. Rachna Acosta DO Band Tacker: Signed Normal [facility] Chloride assayOrdered By: Michelle Acosta on 06-24-2024 Chloride [Moles/Vol] 98 mmol/L 98-108 [facility] Comprehensive Metabolic Prof ilon 06-24-2024 Albumin [Mass/Vol] 3.8 g/dL Normal 3.4-4.8 [facility] Comment on above: Performed By: #### L 501.9520, L100.0100, L500.4050 ####[facility] [address] [place], [address] Albumin/Globulin [Mass ratio] 1.2 {ratio} Normal 0.9-2.4 [facility] Comment on above: Performed By: #### L 501.9520, L100.0100, L500.4050 ####[facility] [address] [place], [address] ALK PHOS 144 U/L High 35-104 [facility] Comment on above: Performed By: #### L 501.9520, L100.0100, L500.4050 ####[facility] [address] [place], [address] ALT [Catalytic activity/Vol] 7 U/L Normal <=34 [facility] Comment on above: Performed By: #### L 501.9520, L100.0100, L500.4050 ####[facility] [address] [place], [address] AST [Catalytic activity/Vol] 16 U/L Normal <=31 [facility] Comment on above: Performed By: #### L 501.9520, L100.0100, L500.4050 ####[facility] [address] [place], [address] Bilirubin [Mass/Vol] 0.44 mg/dL Normal 0.00-1.30 [facility] Comment on above: Performed By: #### L 501.9520, L100.0100, L500.4050 ####[facility] [address] [place], [address] BUN/CRE 19.5 RATIO Normal 10-20 [facility] Comment on above: Performed By: #### L 501.9520, L100.0100, L500.4050 ####[facility] [address] [place], [address] Calcium [Mass/Vol] 9.2 mg/dL Normal 7.6-11.0 [facility] Comment on above: Performed By: #### L 501.9520, L100.0100, L500.4050 ####[facility] [address] [place], [address] Chloride [Moles/Vol] 98 mmol/L Normal 98-108 [facility] Comment on above: Performed By: #### L 501.9520, L100.0100, L500.4050 ####[facility] [address] [place], [address] CO2 [Moles/Vol] 20.4 mmol/L Low 21.0-32.0 [facility] Comment on above: Performed By: #### L 501.9520, L100.0100, L500.4050 ####[facility] [address] [place], [address] Creatinine [Mass/Vol] 0.71 mg/dL Normal 0.70-1.20 [facility] Comment on above: Performed By: #### L 501.9520, L100.0100, L500.4050 ####[facility] [address] [place], [address] GAP 17 High 5-15 [facility] Comment on above: Performed By: #### L 501.9520, L100.0100, L500.4050 ####[facility] [address] [place], [address] GFR/1.73 sq M.predicted among non-blacks MDRD (S/P/Bld) [Vol rate/Area] 87 mL/min/{1.73_m2} Normal >60 [facility] Comment on above: Result Comment: mL/m in/1.73m2 CKD-EPI Creatinine Equation (2020) Performed By: #### L 501.9520, L100.0100, L500.4050 ####[facility] [address] [place], [address] Globulin (S) [Mass/Vol] 3.2 g/dL Normal 2.2-4.2 [facility] Comment on above: Performed By: #### L 501.9520, L100.0100, L500.4050 ####[facility] [address] [place], [address] Glucose [Mass/Vol] 102 mg/dL High 70-99 [facility] Comment on above: Performed By: #### L 501.9520, L100.0100, L500.4050 ####[facility] [address] [place], [address] Potassium [Moles/Vol] 4.3 mmol/L Normal 3.3-5.1 [facility] Comment on above: Performed By: #### L 501.9520, L100.0100, L500.4050 ####[facility] [address] [place], [address] Sodium [Moles/Vol] 135 mmol/L Normal 133-145 [facility] Comment on above: Performed By: #### L 501.9520, L100.0100, L500.4050 ####[facility] [address] [place], [address] T PROT 7.0 g/dL Normal 5.9-8.4 [facility] Comment on above: Performed By: #### L 501.9520, L100.0100, L500.4050 ####[facility] [address] [place], [address] Urea nitrogen [Mass/Vol] 14 mg/dL Normal 4-19 [facility] Comment on above: Performed By: #### L 501.9520, L100.0100, L500.4050 ####[facility] [address] [place], [address] Eosinophil percentageOrdered By: Rachna Acosta on 06-24-2024 Eosinophils/100 WBC (Bld) 2.9 % 0-5 [facility] Erythrocyte distribution wid th ratioOrdered By: Rachna Acosta on 06-24-2024 Erythrocyte distribution width (RBC) [Ratio] 14.3 % 11.6-14.6 [facility] Erythrocyte distribution wid th standard deviationOrdered By: Rachna Acosta on 06-24-2024 Erythrocyte distribution width (RBC) [Ratio] 49.5 fl High 35.1-43.9 [facility] Glomerular filtration rate ( GFR) estimation/1.73 sq m using serum, plasma, or whole bOrdered By: Rachna Acosta on 06-24-2024 GFR/1.73 sq M.predicted among non-blacks MDRD (S/P/Bld) [Vol rate/Area] 87 mL/min/{1.73_m2} >60 [facility] Comment on above: mL/min/1.73m2 CKD-EP I Creatinine Equation (2020) Hematocrit Auto (Bld) [Volum e fraction]Ordered By: Rachna Acosta on 06-24-2024 Hematocrit (Bld) [Volume fraction] 37.8 % 37-47 [facility] Hemoglobin measurementOrdere d By: Rachna Acosta on 06-24-2024 Hemoglobin (Bld) [Mass/Vol] 12.3 g/dL 12.0-15.0 [facility] Immature granulocytes/100 WB C Auto (Bld)Ordered By: Rachna Acosta on 06-24-2024 Immature granulocytes/100 WBC (Bld) 0.300 % 0.0-0.9 [facility] Comment on above: IG% - Immature Granu locytes (promyelocytes, myelocytes and metamyelocytes) > 1% indicates that a LEFT SHIFT is Present. Laboratory - Chemistry and C hemistry - challengeOrdered By: aRchna Acosta on 06-24-2024 AST [Catalytic activity/Vol] 16 U/L <32 [facility] MCV (mean corpuscular volume ) determinationOrdered By: Rachna Acosta on 06-24-2024 MCV (RBC) [Entitic vol] 95.0 fL 81-99 [facility] Mean corpuscular hemoglobin (MCH) determinationOrdered By: Rachna Acosta on 06-24-2024 MCH (RBC) [Entitic mass] 30.9 pg 27.0-32.0 [facility] Mean corpuscular hemoglobin concentration (MCHC) determinationOrdered By: Rachna Acosta on 06-24-2024 MCHC (RBC) [Mass/Vol] 32.5 g/dL 32-36 [facility] Mean platelet volume determi nationOrdered By: Rachna Acosta on 06-24-2024 Platelet mean volume (Bld) [Entitic vol] 10.5 fL 6.2-12.0 [facility] Monocyte percentageOrdered B y: Rachna Acosta on 06-24-2024 Monocytes/100 WBC (Bld) 12.5 % High 0-10 [facility] Neutrophil percentageOrdered By: Rachna Acosta on 06-24-2024 Neutrophils/100 WBC (Bld) 65.8 % 47-70 [facility] Nucleated red blood cell per centageOrdered By: Rachna Acosta on 06-24-2024 Nucleated RBC/100 WBC (Bld) [Ratio] 0 % 0-5 [facility] Platelet countOrdered By: Michelle Acosta on 06-24-2024 Platelets (Bld) [#/Vol] 395 10*3/uL 150-450 [facility] Potassium measurement (mass/ volume)Ordered By: Rachna Acosta on 06-24-2024 Potassium (Unsp spec) [Mass/Vol] 4.3 mmol/L 3.3-5.1 [facility] RBC Auto (Bld) [#/Vol]Ordere d By: Rachna Acosta on 06-24-2024 RBC (Bld) [#/Vol] 3.98 10*6/uL Low 4.2-5.[address] [facility] Serum creatinine measurement (mass/volume)Ordered By: Rachna Acosta on 06-24-2024 Creatinine [Mass/Vol] 0.71 mg/dL 0.70-1.20 [facility] Serum globulin measurementOr dered By: Rachna Acosta on 06-24-2024 Globulin (S) [Mass/Vol] 3.2 g/dL 2.2-4.2 [facility] Serum glucose measurement (m ass/volume)Ordered By: Rachna Acosta on 06-24-2024 Glucose [Mass/Vol] 102 mg/dL High 70-99 [facility] Serum or plasma alanine carlos otransferase (ALT) measurementOrdered By: Rachna Acosta on 06-24-2024 ALT [Catalytic activity/Vol] 7 U/L <35 [facility] Serum or plasma albumin ollie urement (mass/volume)Ordered By: Rachna Acosta on 06-24-2024 Albumin [Mass/Vol] 3.8 g/dL 3.4-4.8 [facility] Serum or plasma albumin/glob ulin mass ratioOrdered By: Rachna Acosta on 06-24-2024 Albumin/Globulin [Mass ratio] 1.2 {ratio} 0.9-2.4 [facility] Serum or plasma alkaline nneka sphatase measurementOrdered By: Rachna Acosta on 06-24-2024 ALP [Catalytic activity/Vol] 144 U/L High 35-104 [facility] Serum or plasma calcium ollie urement (mass/volume)Ordered By: Rachna Acosta on 06-24-2024 Calcium [Mass/Vol] 9.2 mg/dL 7.6-11.0 [facility] Serum or plasma urea nitroge n measurement (mass/volume)Ordered By: Rachna Acosta on 06-24-2024 Urea nitrogen [Mass/Vol] 14 mg/dL 4-19 [facility] Sodium levelOrdered By: Rachna Acosta on 06-24-2024 Sodium [Moles/Vol] 135 mmol/L 133-145 [facility] TSH DL <= 0.005 mIU/L QnOrde red By: Rachna Acosta on 06-24-2024 TSH Qn 4.800 uIU/mL High 0.300-4.200 [facility] Thyroid Stim Hormone (TSH)on 06-24-2024 TSH 4.800 uIU/mL High 0.300-4.200 [facility] Comment on above: Performed By: #### L 501.9520, L100.0100, L500.4050 ####[facility] [address] [place], [address] Total proteinOrdered By: Ashley Acosta on 06-24-2024 Protein [Mass/Vol] 7.0 g/dL 5.9-8.4 [facility] White blood cell (WBC) count Ordered By: Rachna Acosta on 06-24-2024 WBC (Bld) [#/Vol] 5.8 10*3/uL 4.4-11.0 [facility] Body fluid lactate dehydroge nase measurement (enzymatic activity/volume) by pyruvateOrdered By: Rachna Acosta on 06-03-2024 LDH Pyruvate to lactate reaction (Body fld) [Catalytic activity/Vol] 74 Units/L Not Establ. [facility] Body fluid protein measureme nt (mass/volume)Ordered By: Rachna Acosta on 06-03-2024 Protein (Body fld) [Mass/Vol] 4.2 g/dL Not Establ. [facility] Chest Insp/Exp 2 Viewon 05-19 Chest Insp/Exp 2 View [facility] Imaging Services [address] [place] [address] Chest Insp/Exp 2 View MR#: [id number] Acct: [id number] Name: CRISELDA STORM Rep #: [id number] : 1945 F 79 From: Sean kaplan MD PCP: Dr. Rachna Acosta DO Status: REG CLI Study: Chest Insp/Exp 2 View Date of Exam: 06/03/24 Exam# [id number] Ordering Dr: Sean Pandya EXAM: Frontal inspiration [...] immediate post left thoracentesis examination. Reading Location: [place] [address] CC: Dr. Sean Pandya MD; Dr. Rachna Acosta DO Band Tacker: Signed Normal [facility] Cytology report of Body flui d Cyto stainOrdered By: Rachna Acosta on 06-03-2024 Cytology report Cyto stain Doc (Body fld) SEE PATHOLOGY REPORT [facility] Comment on above: Specimen submitted t o Anatomical Pathology Department for testing. Cytology, Body Fluid / CSFon 06-03-2024 CYTOLOGY,BF/CSF SEE PATHOLOGY REPORT Normal [facility] Comment on above: Order Comment: LT TH ORA FINISHED CIGAR MAKER PETER Result Comment: Spec imen submitted to Anatomical Pathology Department for testing. Performed By: #### L 350.1000, L504.0250, L503.0100, L503.0300 ####[facility] [address] [place], [address] Glucose, Body Fluidon 2024 GLUC, BODY FLD 92 mg/dL Normal Not Establ. [facility] Comment on above: Order Comment: LT TH ORA FINISHED CIGAR MAKER BORDNER Performed By: #### L 350.1000, L504.0250, L503.0100, L503.0300 ####[facility] [address] [place], [address] LDH,Body Fluidon 06-03-2024 LDH,BF 74 Units/L Normal Not Establ. [facility] Comment on above: Order Comment: LT TH ORA FINISHED CIGAR MAKER BORDNER Performed By: #### L 350.1000, L504.0250, L503.0100, L503.0300 ####[facility] [address] [place], [address] Operative Reporton 5 Operative Report [facility] Medical Records Department [address] [place] [address] Operative Report 06/03/24 0904 MR#: [id number] Acct: [id number] Name: CRISELDA STORM Rep #: [id number] : 1945 79 From: Amanda BURNETT PCP: Dr. Rachna Acosta, DO Status:REG CLI Location: US Problems Associated Problem List Diagnoses (1) Pleural effusion: (2) Shortness of breath: Multi Select Codes Radiology Radiology US Procedures: 02736 Thoracentesis Operative Report (Standard) Operative Information Date of Procedure: 06/03/24 Pre-Operative Diagnosis: Pleural effusion Post-Operative Diagnosis: Pleural effusion Surgery/Procedure Performed: Ultrasound-guided thoracentesis manager neonatal: No Type of Anesthesia: Local Procedure Start [...] local anesthesia. Under ultrasound guidance, a 5- Nauruan thoracentesis needle/catheter system was advanced into the [...] LEX Green; Dr. Rachna Acosta, Signed Normal [facility] Protein, Body Fluidon 2024 Protein [Mass/Vol] 4.2 g/dL Normal Not Establ. [facility] Comment on above: Order Comment: RICARDA GREEN Performed By: #### L 350.1000, L504.0250, L503.0100, L503.0300 ####[facility] [address] [place], [address] Special Stain Group IIon Special Stain Group II ---- -------- Patient Age/Sex Location Account Attending Physician -------- CRISELDA STORM 79/F [id number] Dr. Rachna Acosta DO -------- Specimen: [id number] Received: 06/03/24 Status: RONDA Lua Num: [id number] Spec Type: Fluid Subm Dr: DO BRENDA [...] and cell block preparation. Mr 06/03/2024 CPT: 30546 Signed (signature on file) Dr. Caterina Varela DO 06/05/24 1424 -------- Normal [facility] Comment on above: Performed By: #### P SSII ####[facility] [address] [facility] [place], [place], [id number] 12 Lead EKGon 05-31-2024 12 Lead EKG [facility] Cardiovascular Services [address] [place] [address] 12 Lead EKG 05/31/24 1620 MR#: [id number] Acct: [id number] Name: CRISELDA STORM Rep #: [id number] : 1945 79 From: John Ledezma MD [...] abnormality Abnormal ECG Confirmed by John Ledezma ([id number]), editor book KAVEH MARROQUIN ([id number]) on 06/01/2024 1:18:32 PM Referred By: NABOR/JEY Confirmed By: John Ledezma 06/01/24 1318 Date John Ledezma MD CC: Dr. Omar Greene, ; Dr. Rachna Acosta DO Signed Normal [facility] Absolute lymphocyte countOrd ered By: Omar Greene on 05-31-2024 Lymphocytes Auto (Unsp spec) [#/Vol] 1.01 10*3/uL 0.83-4.51 [facility] Absolute neutrophil countOrd ered By: Omar Greene on 05-31-2024 Neutrophils (Bld) [#/Vol] 3.6 10*3/uL 2.0-7.7 [facility] Anion gap in Serum or Plasma Ordered By: Omar Greene on 05-31-2024 Anion gap [Moles/Vol] 11 mmol/L 5-15 [facility] Automated lymphocyte count a s percentage of total leukocytesOrdered By: Omar Greene on 05-31-2024 Lymphocytes/100 WBC Auto (Unsp spec) 17.9 % Low 19-41 [facility] BUN/creatinine ratioOrdered By: Omar Greene on 05-31-2024 Urea nitrogen/Creatinine [Mass ratio] 23.2 mg/mg High 10-20 [facility] Basic Metabolic Profile (BMP )on 05-31-2024 BUN/CRE 23.2 RATIO High - [facility] Comment on above: Performed By: #### L 100.0100, L500.2500, L501.4021 ####[facility] [address] [place], [address] Calcium [Mass/Vol] 9.6 mg/dL Normal 7.6-11.0 [facility] Comment on above: Performed By: #### L 100.0100, L500.2500, L501.4021 ####[facility] [address] [place], [address] Chloride [Moles/Vol] 95 mmol/L Low 98-108 [facility] Comment on above: Performed By: #### L 100.0100, L500.2500, L501.4021 ####[facility] [address] [place], [address] CO2 [Moles/Vol] 26.3 mmol/L Normal 21.0-32.0 [facility] Comment on above: Performed By: #### L 100.0100, L500.2500, L501.4021 ####[facility] [address] [place], [address] Creatinine [Mass/Vol] 0.73 mg/dL Normal 0.70-1.20 [facility] Comment on above: Performed By: #### L 100.0100, L500.2500, L501.4021 ####[facility] [address] [place], [address] ECRCL 50.05 ml/min Normal 50-250 [facility] Comment on above: Performed By: #### L 100.0100, L500.2500, L501.4021 ####[facility] [address] [place], [address] GAP 11 Normal 5-15 [facility] Comment on above: Performed By: #### L 100.0100, L500.2500, L501.4021 ####[facility] [address] [place], [address] GFR/1.73 sq M.predicted among non-blacks MDRD (S/P/Bld) [Vol rate/Area] 85 mL/min/{1.73_m2} Normal >60 [facility] Comment on above: Result Comment: mL/m in/1.73m2 CKD-EPI Creatinine Equation (2020) Performed By: #### L 100.0100, L500.2500, L501.4021 ####[facility] [address] [place], [address] Glucose [Mass/Vol] 118 mg/dL High 70-99 [facility] Comment on above: Performed By: #### L 100.0100, L500.2500, L501.4021 ####[facility] [address] [place], [address] Potassium [Moles/Vol] 3.9 mmol/L Normal 3.3-5.1 [facility] Comment on above: Performed By: #### L 100.0100, L500.2500, L501.4021 ####[facility] [address] [place], [address] Sodium [Moles/Vol] 132 mmol/L Low 133-145 [facility] Comment on above: Performed By: #### L 100.0100, L500.2500, L501.4021 ####[facility] [address] [place], [address] Urea nitrogen [Mass/Vol] 17 mg/dL Normal 4-19 [facility] Comment on above: Performed By: #### L 100.0100, L500.2500, L501.4021 ####[facility] [address] [place], [address] Basophil percentageOrdered B y: Omar Greene on 05-31-2024 Basophils/100 WBC (Bld) 1.8 % High 0-1 [facility] CBC W/Diff, Automatedon 05-19 Absolute Lymph 1.01 X10 3/uL Normal 0.83-4.51 [facility] Comment on above: Performed By: #### L 100.0100, L500.2500, L501.4021 ####[facility] [address] [place], [address] Absolute Neut 3.6 X10 3/uL Normal 2.0-7.7 [facility] Comment on above: Performed By: #### L 100.0100, L500.2500, L501.4021 ####[facility] [address] [place], [address] Basophils/100 WBC (Bld) 1.8 % High 0-1 [facility] Comment on above: Performed By: #### L 100.0100, L500.2500, L501.4021 ####[facility] [address] [place], [address] Eosinophils/100 WBC (Bld) 2.3 % Normal 0-5 [facility] Comment on above: Performed By: #### L 100.0100, L500.2500, L501.4021 ####[facility] [address] [place], [address] Erythrocyte distribution width (RBC) [Ratio] 13.8 % Normal 11.6-14.6 [facility] Comment on above: Performed By: #### L 100.0100, L500.2500, L501.4021 ####[facility] [address] [place], [address] Hematocrit (Bld) [Volume fraction] 42.1 % Normal 37-47 [facility] Comment on above: Performed By: #### L 100.0100, L500.2500, L501.4021 ####[facility] [address] [place], [address] Hemoglobin (Bld) [Mass/Vol] 13.6 g/dL Normal 12.0-15.0 [facility] Comment on above: Performed By: #### L 100.0100, L500.2500, L501.4021 ####[facility] [address] [place], [address] IG% 0.500 Normal 0.0-0.9 [facility] Comment on above: Result Comment: IG% - Immature Granulocytes (promyelocytes, myelocytes and metamyelocytes) > 1% indicates that a LEFT SHIFT is Present. Performed By: #### L 100.0100, L500.2500, L501.4021 ####[facility] [address] [place], [address] Lymphocytes/100 WBC (Bld) 17.9 % Low 19-41 [facility] Comment on above: Performed By: #### L 100.0100, L500.2500, L501.4021 ####[facility] [address] [place], [address] MCH (RBC) [Entitic mass] 30.6 pg Normal 27.0-32.0 [facility] Comment on above: Performed By: #### L 100.0100, L500.2500, L501.4021 ####[facility] [address] [place], [address] MCHC (RBC) [Mass/Vol] 32.3 g/dL Normal 32-36 [facility] Comment on above: Performed By: #### L 100.0100, L500.2500, L501.4021 ####[facility] [address] [place], [address] MCV (RBC) [Entitic vol] 94.8 fL Normal 81-99 [facility] Comment on above: Performed By: #### L 100.0100, L500.2500, L501.4021 ####[facility] [address] [place], [address] Monocytes/100 WBC (Bld) 13.1 % High 0-10 [facility] Comment on above: Performed By: #### L 100.0100, L500.2500, L501.4021 ####[facility] [address] [place], [address] Neutrophils/100 WBC (Bld) 64.4 % Normal 47-70 [facility] Comment on above: Performed By: #### L 100.0100, L500.2500, L501.4021 ####[facility] [address] [place], [address] Nucleated RBC (Bld) [#/Vol] 0 10*3/uL Normal 0-5 [facility] Comment on above: Performed By: #### L 100.0100, L500.2500, L501.4021 ####[facility] [address] [place], [address] Platelet mean volume (Bld) [Entitic vol] 10.3 fL Normal 6.2-12.0 [facility] Comment on above: Performed By: #### L 100.0100, L500.2500, L501.4021 ####[facility] [address] [place], [address] Platelets (Bld) [#/Vol] 438 10*3/uL Normal 150-450 [facility] Comment on above: Performed By: #### L 100.0100, L500.2500, L501.4021 ####[facility] [address] [place], [address] RBC (Bld) [#/Vol] 4.44 10*6/uL Normal 4.2-5.[address] [facility] Comment on above: Performed By: #### L 100.0100, L500.2500, L501.4021 ####[facility] [address] [place], [address] RDW SD 48.1 fl High 35.1-43.9 [facility] Comment on above: Performed By: #### L 100.0100, L500.2500, L501.4021 ####[facility] [address] [place], [address] WBC (Bld) [#/Vol] 5.6 10*3/uL Normal 4.4-11.0 [facility] Comment on above: Performed By: #### L 100.0100, L500.2500, L501.4021 ####[facility] [address] [place], [address] Carbon dioxide, total [Moles /volume] in Central venous bloodOrdered By: Omar Greene on 05-31-2024 CO2 [Moles/Vol] 26.3 mmol/L 21.0-32.0 [facility] Chest PA and Lateralon 05-31 Chest PA and Lateral [facility] Imaging Services [address] [place] [address] Chest PA and Lateral MR#: [id number] Acct: [id number] Name: CRISELDA STORM Rep #: [id number] : 1945 F 79 From: Migel Ribeiro PCP: Dr. Rachna Acosta DO Status: REG ER Study: Chest PA and Lateral Date of Exam: 05/31/24 Exam# [id number] Ordering Dr: Omar Greene DO PROCEDURE: CHEST [...] Omar Greene DO; Dr. Rachna Acosta DO Band Tacker: Signed Normal [facility] Chloride assayOrdered By: Spike Greene on 05-31-2024 Chloride [Moles/Vol] 95 mmol/L Low 98-108 [facility] Emergency Department Summary on 05-31-2024 Emergency Department Summary [facility] Medical Records Department [address] [place] [address] Emergency Department Summary 05/31/24 MR#: [id number] Acct: [id number] Name: CRISELDA STORM Rep #: [id number] : 1945 79 From: Omar Greene DO [...] Eliquis. She has not missed any doses. [facility] Medical History Neuropathy Hyperlipidemia Vitamin D [...] Rate 18 (more content not included)... Normal [facility] Eosinophil percentageOrdered By: Omar Greene on 05-31-2024 Eosinophils/100 WBC (Bld) 2.3 % 0-5 [facility] Erythrocyte distribution wid th (RBC) [Ratio]Ordered By: Omar Greene on 05-31-2024 Erythrocyte distribution width (RBC) [Entitic vol] 48.1 fL High 35.1-43.9 [facility] Erythrocyte distribution wid th ratioOrdered By: Omra Greene on 05-31-2024 Erythrocyte distribution width (RBC) [Ratio] 13.8 % 11.6-14.6 [facility] Erythrocyte distribution wid th standard deviationOrdered By: Omar Greene on 05-31-2024 Erythrocyte distribution width (RBC) [Ratio] 48.1 fl High 35.1-43.9 [facility] Estimation of creatinine kavita aranceOrdered By: Omar Greene on 05-31-2024 Estimated Creatinine Clearance Calc 50.05 ml/min 50-250 [facility] GFR/1.73 sq M.predicted surinder g non-blacks MDRD (S/P/Bld) [Vol rate/Area]Ordered By: Omar Greene on 05-31-2024 Estimated GFR (MDRD) Non-Af Amer 85 >60 [facility] Comment on above: mL/min/1.73m2 CKD-EP I Creatinine Equation (2020) Glomerular filtration rate ( GFR) estimation/1.73 sq m using serum, plasma, or whole bOrdered By: Omar Gerene on 05-31-2024 GFR/1.73 sq M.predicted among non-blacks MDRD (S/P/Bld) [Vol rate/Area] 85 mL/min/{1.73_m2} >60 [facility] Comment on above: mL/min/1.73m2 CKD-EP I Creatinine Equation (2020) Hematocrit Auto (Bld) [Volum e fraction]Ordered By: Omar Greene on 05-31-2024 Hematocrit (Bld) [Volume fraction] 42.1 % 37-47 [facility] Hemoglobin measurementOrdere d By: Omar Greene on 05-31-2024 Hemoglobin (Bld) [Mass/Vol] 13.6 g/dL 12.0-15.0 [facility] Immature granulocytes/100 WB C Auto (Bld)Ordered By: Omar Greene on 05-31-2024 Immature granulocytes/100 WBC (Bld) 0.500 % 0.0-0.9 [facility] Comment on above: IG% - Immature Granu locytes (promyelocytes, myelocytes and metamyelocytes) > 1% indicates that a LEFT SHIFT is Present. L501.4021on 05-31-2024 Trop T High Sen 14 ng/L Normal <=14 [facility] Comment on above: Performed By: #### L 100.0100, L500.2500, L501.4021 ####[facility] [address] [place], [address] Lymphocytes Auto (Unsp spec) [#/Vol]Ordered By: Omar Greene on 05-31-2024 Lymphocytes (Bld) [#/Vol] 1.01 10*3/uL 0.83-4.51 [facility] Lymphocytes/100 WBC Auto (Un sp spec)Ordered By: Omar Greene on 05-31-2024 Lymphocytes/100 WBC (Bld) 17.9 % Low 19-41 [facility] MCV (mean corpuscular volume ) determinationOrdered By: Omar Greene on 05-31-2024 MCV (RBC) [Entitic vol] 94.8 fL 81-99 [facility] Mean corpuscular hemoglobin (MCH) determinationOrdered By: Omar Greene on 05-31-2024 MCH (RBC) [Entitic mass] 30.6 pg 27.0-32.0 [facility] Mean corpuscular hemoglobin concentration (MCHC) determinationOrdered By: Omar Greene on 05-31-2024 MCHC (RBC) [Mass/Vol] 32.3 g/dL 32-36 [facility] Mean platelet volume determi nationOrdered By: Omar Greene on 05-31-2024 Platelet mean volume (Bld) [Entitic vol] 10.3 fL 6.2-12.0 [facility] Monocyte percentageOrdered B y: Omar Greene on 05-31-2024 Monocytes/100 WBC (Bld) 13.1 % High 0-10 [facility] Neutrophil percentageOrdered By: Omar Greene on 05-31-2024 Neutrophils/100 WBC (Bld) 64.4 % 47-70 [facility] Nucleated red blood cell per centageOrdered By: Omar Greene on 05-31-2024 Nucleated RBC/100 WBC (Bld) [Ratio] 0 % 0-5 [facility] Platelet countOrdered By: Spike Greene on 05-31-2024 Platelets (Bld) [#/Vol] 438 10*3/uL 150-450 [facility] Potassium (Unsp spec) [Mass/ Vol]Ordered By: Omar Greene on 05-31-2024 Potassium [Moles/Vol] 3.9 mmol/L 3.3-5.1 [facility] Potassium measurement (mass/ volume)Ordered By: Omar Greene on 05-31-2024 Potassium (Unsp spec) [Mass/Vol] 3.9 mmol/L 3.3-5.1 [facility] RBC Auto (Bld) [#/Vol]Ordere d By: Omar Greene on 05-31-2024 RBC (Bld) [#/Vol] 4.44 10*6/uL 4.2-5.[address] [facility] Serum creatinine measurement (mass/volume)Ordered By: Omar Greene on 05-31-2024 Creatinine [Mass/Vol] 0.73 mg/dL 0.70-1.20 [facility] Serum glucose measurement (m ass/volume)Ordered By: Omar Greene on 05-31-2024 Glucose [Mass/Vol] 118 mg/dL High 70-99 [facility] Serum or plasma calcium ollie urement (mass/volume)Ordered By: Omar Greene on 05-31-2024 Calcium [Mass/Vol] 9.6 mg/dL 7.6-11.0 [facility] Serum or plasma urea nitroge n measurement (mass/volume)Ordered By: Omar Greene on 05-31-2024 Urea nitrogen [Mass/Vol] 17 mg/dL 4-19 [facility] Sodium levelOrdered By: Miguelangel Greene on 05-31-2024 Sodium [Moles/Vol] 132 mmol/L Low 133-145 [facility] Troponin T.cardiac High sens itivity method [Mass/Vol]Ordered By: Omar Greene on 05-31-2024 Troponin T High Sensitivity 14 ng/L <14 [facility] Troponin T.cardiac [Mass/vol ume] in Serum or Plasma by High sensitivity methodOrdered By: Omar Greene on 05-31-2024 Troponin T.cardiac High sensitivity method [Mass/Vol] 14 ng/L <14 [facility] White blood cell (WBC) count Ordered By: Omar Greene on 05-31-2024 WBC (Bld) [#/Vol] 5.6 10*3/uL 4.4-11.0 [facility] ALANNAH SCREENING W TOMOon 04-30 ALANNAH SCREENING W UMA * * *Final Report* * * DATE OF EXAM: Apr 30 2024 11:36[facility] 0582 - ALANNAH SCREENING W U[facility] / PROCEDURE REASON: SCREENING * * * * Physician Interpretation * * * * RESULT: [address] [address] [place] [address] #[id number] - ALANNAH SCREENING W [facility]MA HISTORY: 79 [...] Ani Keenan M.D. Electronically signed on: 05/01/2024 Band Tacker: KENDELL Transcribe Date/Time: Apr 30 2024 11:22A Dictated by: ANI KEENAN MD This examination was interpreted and the report reviewed and electronically signed by: ANI KEENAN MD on May 01 2024 12:58PM EST [id number] Normal [facility] Gastroenterology Visit Repor ton 03-26-2024 Gastroenterology Visit Report [facility] Gastroenterology [address] [place] [address] OFFICE VISIT Date of Service: 03/26/24 MR#: [id number] Acct: [id number] Name: CRISELDA STORM Rep #: [id number] : 1945 Provider: TIM Robert Age/Sex: 78/F Location: 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 [facility] Medical History Neuropathy Hyperlipidemia Vitamin D deficiency [...] Appearance: average body habitus and well nourished [facility] Head: normal to inspection Ears: hearing grossly [...] of c.dif (more content not included)... Normal [facility] Chest PA and Lateralon 03-23 Chest PA and Lateral [facility] Imaging Services [address] [place] [address] Chest PA and Lateral MR#: [id number] Acct: [id number] Name: CRISELDA STORM Rep #: [id number] : 1945 F 78 From: José Miguel Noland MD PCP: Dr. Rachna Acosta, DO Status: REG CLI Study: Chest PA and Lateral Date of Exam: 03/23/24 Exam# [id number] Ordering Dr: Hazel Denson EXAM: XR Chest, [...] Superimposed pneumonia cannot be excluded. Reading Location: [facility] CC: Dr. Rachna Acosta DO; TIM Yu Band Tacker: Signed Normal [facility] Echo Completeon 03-19-2024 Echo Complete [facility] Cardiovascular Services [address] [address] Echo Complete 03/19/24 1313 MR#: [id number] Acct: [id number] Name: CRISELDA STORM Rep #: [id number] : 1945 78 From: Marcelo Berry MD Attending Dr: TIM Yu Status: REG CLI Ordering Dr: Hazel Denson Date: 02/20 Location: [facility] Sex: F C Admitted: Reason For [...] Date Dictated: 03/19/24 1313 Date Transcribed: 03/19/241514 Band Tacker: Signed Normal [facility] Absolute lymphocyte countOrd ered By: Rachna Francogabbi on 03-17-2024 Lymphocytes Auto (Unsp spec) [#/Vol] 0.81 10*3/uL Low 0.83-4.51 [facility] Absolute neutrophil countOrd ered By: Rachna Acosta on 03-17-2024 Neutrophils (Bld) [#/Vol] 2.5 10*3/uL 2.0-7.7 [facility] Automated lymphocyte count a s percentage of total leukocytesOrdered By: Rachna Salvadorgabbi on 03-17-2024 Lymphocytes/100 WBC Auto (Unsp spec) 20.1 % 19-41 [facility] Basophil percentageOrdered B y: Rachna Francogabbi on 03-17-2024 Basophils/100 WBC (Bld) 1.7 % High 0-1 [facility] C-reactive protein measureme nt by high sensitivity methodOrdered By: Rachna Acosta on 03-17-2024 C-Reactive Protein Extended Range 13.30 mg/L High 0.0-3.0 [facility] Comment on above: C-Reactive Protein ( CRP) provides useful information for thediagnosis, therapy and monitoring of inflammatory processesand associated diseases. For the evaluation of Relative Riskfor Cardiovascular Disease, a High Sensitivity CRP (HSCRP)should be ordered. C-reactive protein measurement by high sensitivity method 13.30 mg/L High 0.0-3.0 [facility] Comment on above: C-Reactive Protein ( CRP) provides useful information for thediagnosis, therapy and monitoring of inflammatory processesand associated diseases. For the evaluation of Relative Riskfor Cardiovascular Disease, a High Sensitivity CRP (HSCRP)should be ordered. CBC W/Diff, Automatedon 02-19 Absolute Lymph 0.81 X10 3/uL Low 0.83-4.51 [facility] Comment on above: Performed By: #### L 100.0100, L504.2610, L101.9900, L501.6710 #### [facility] [address] [place], [address] Absolute Neut 2.5 X10 3/uL Normal 2.0-7.7 [facility] Comment on above: Performed By: #### L 100.0100, L504.2610, L101.9900, L501.6710 #### [facility] [address] [place], [address] Basophils/100 WBC (Bld) 1.7 % High 0-1 [facility] Comment on above: Performed By: #### L 100.0100, L504.2610, L101.9900, L501.6710 #### [facility] [address] [place], [address] Eosinophils/100 WBC (Bld) 3.0 % Normal 0-5 [facility] Comment on above: Performed By: #### L 100.0100, L504.2610, L101.9900, L501.6710 #### [facility] [address] [place], [address] Erythrocyte distribution width (RBC) [Ratio] 14.7 % High 11.6-14.6 [facility] Comment on above: Performed By: #### L 100.0100, L504.2610, L101.9900, L501.6710 #### [facility] [address] [place], [address] Hematocrit (Bld) [Volume fraction] 41.6 % Normal 37-47 [facility] Comment on above: Performed By: #### L 100.0100, L504.2610, L101.9900, L501.6710 #### [facility] [address] [place], [address] Hemoglobin (Bld) [Mass/Vol] 13.6 g/dL Normal 12.0-15.0 [facility] Comment on above: Performed By: #### L 100.0100, L504.2610, L101.9900, L501.6710 #### [facility] [address] [place], [address] IG% 0.200 Normal 0.0-0.9 [facility] Comment on above: Result Comment: IG% - Immature Granulocytes (promyelocytes, myelocytes and metamyelocytes) > 1% indicates that a LEFT SHIFT is Present. Performed By: #### L 100.0100, L504.2610, L101.9900, L501.6710 #### [facility] [address] [place], [address] Lymphocytes/100 WBC (Bld) 20.1 % Normal 19-41 [facility] Comment on above: Performed By: #### L 100.0100, L504.2610, L101.9900, L501.6710 #### [facility] [address] [place], [address] MCH (RBC) [Entitic mass] 30.9 pg Normal 27.0-32.0 [facility] Comment on above: Performed By: #### L 100.0100, L504.2610, L101.9900, L501.6710 #### [facility] [address] [place], [address] MCHC (RBC) [Mass/Vol] 32.7 g/dL Normal 32-36 [facility] Comment on above: Performed By: #### L 100.0100, L504.2610, L101.9900, L501.6710 #### [facility] [address] [place], [address] MCV (RBC) [Entitic vol] 94.5 fL Normal 81-99 [facility] Comment on above: Performed By: #### L 100.0100, L504.2610, L101.9900, L501.6710 #### [facility] [address] [place], [address] Monocytes/100 WBC (Bld) 12.9 % High 0-10 [facility] Comment on above: Performed By: #### L 100.0100, L504.2610, L101.9900, L501.6710 #### [facility] [address] [place], [address] Neutrophils/100 WBC (Bld) 62.1 % Normal 47-70 [facility] Comment on above: Performed By: #### L 100.0100, L504.2610, L101.9900, L501.6710 #### [facility] [address] [place], [address] Nucleated RBC (Bld) [#/Vol] 0 10*3/uL Normal 0-5 [facility] Comment on above: Performed By: #### L 100.0100, L504.2610, L101.9900, L501.6710 #### [facility] [address] [place], [address] Platelet mean volume (Bld) [Entitic vol] 10.2 fL Normal 6.2-12.0 [facility] Comment on above: Performed By: #### L 100.0100, L504.2610, L101.9900, L501.6710 #### [facility] [address] [place], [address] Platelets (Bld) [#/Vol] 284 10*3/uL Normal 150-450 [facility] Comment on above: Performed By: #### L 100.0100, L504.2610, L101.9900, L501.6710 #### [facility] [address] [place], [address] RBC (Bld) [#/Vol] 4.40 10*6/uL Normal 4.2-5.[address] [facility] Comment on above: Performed By: #### L 100.0100, L504.2610, L101.9900, L501.6710 #### [facility] [address] [place], [address] RDW SD 51.3 fl High 35.1-43.9 [facility] Comment on above: Performed By: #### L 100.0100, L504.2610, L101.9900, L501.6710 #### [facility] [address] [place], [address] WBC (Bld) [#/Vol] 4.0 10*3/uL Low 4.4-11.0 [facility] Comment on above: Performed By: #### L 100.0100, L504.2610, L101.9900, L501.6710 #### [facility] [address] [place], [address] CRPon 03-17-2024 C-REACTIVE PROT 13.30 mg/L High 0.0-3.0 [facility] Comment on above: Order Comment: 1 Result Comment: C-Re active Protein (CRP) provides useful information for the diagnosis, therapy and monitoring of inflammatory processes and associated diseases. For the evaluation of Relative Risk for Cardiovascular Disease, a High Sensitivity CRP (HSCRP) should be ordered. Performed By: #### L 100.0100, L504.2610, L101.9900, L501.6710 ####[facility] [address] [place], [address] Eosinophil percentageOrdered By: Rachna Acosta on 03-17-2024 Eosinophils/100 WBC (Bld) 3.0 % 0-5 [facility] Erythrocyte Sed Rateon 03-17 SED RATE 9 mm/hr Normal 0-30 [facility] Comment on above: Performed By: #### L 100.0100, L504.2610, L101.9900, L501.6710 #### [facility] [address] [place], [address] Erythrocyte distribution wid th (RBC) [Ratio]Ordered By: Rachna Acosta on 03-17-2024 Erythrocyte distribution width (RBC) [Entitic vol] 51.3 fL High 35.1-43.9 [facility] Erythrocyte distribution wid th ratioOrdered By: Rachna Acosta on 03-17-2024 Erythrocyte distribution width (RBC) [Ratio] 14.7 % High 11.6-14.6 [facility] Erythrocyte distribution wid th standard deviationOrdered By: Rachna Acosta on 03-17-2024 Erythrocyte distribution width (RBC) [Ratio] 51.3 fl High 35.1-43.9 [facility] Erythrocyte sedimentation ra teOrdered By: Rachna Acosta on 03-17-2024 ESR (Bld) [Velocity] 9 mm/h 0-30 [facility] Hematocrit Auto (Bld) [Volum e fraction]Ordered By: Rachna Acosta on 03-17-2024 Hematocrit (Bld) [Volume fraction] 41.6 % 37-47 [facility] Hemoglobin measurementOrdere d By: Rachna Acosta on 03-17-2024 Hemoglobin (Bld) [Mass/Vol] 13.6 g/dL 12.0-15.0 [facility] Immature granulocytes/100 WB C Auto (Bld)Ordered By: Rachna Acosta on 03-17-2024 Immature granulocytes/100 WBC (Bld) 0.200 % 0.0-0.9 [facility] Comment on above: IG% - Immature Granu locytes (promyelocytes, myelocytes and metamyelocytes) > 1% indicates that a LEFT SHIFT is Present. LDHon 03-17-2024 LDH 189 U/L Normal 84-246 [facility] Comment on above: Order Comment: 1 Performed By: #### L 100.0100, L504.2610, L101.9900, L501.6710 ####[facility] [address] [place], [address] Lactate dehydrogenase (LDH) measurementOrdered By: Rachna Acosta on 03-17-2024 LDH [Catalytic activity/Vol] 189 U/L 84-246 [facility] Liveron 03-17-2024 Liver [facility] Imaging Services [address] [place], [place] [id number] Liver MR#: [id number] Acct: [id number] Name: CRISELDA STORM Rep #: [id number] : 1945 F 78 From: Juve Haque PCP: Dr. Rachna Acosta DO Status: REG CLI Study: Liver Date of Exam: 03/17/24 Exam# [id number] Ordering Dr: Rachna Acosta DO PROCEDURE: LIVER [...] 2. Right hepatic small cyst. Reading Location: [address] CC: Dr. Rachna Acosta DO Band Tacker: Signed Normal [facility] Lymphocytes Auto (Unsp spec) [#/Vol]Ordered By: Rachna Acosta on 03-17-2024 Lymphocytes (Bld) [#/Vol] 0.81 10*3/uL Low 0.83-4.51 [facility] Lymphocytes/100 WBC Auto (Un sp spec)Ordered By: Rachna Acosta on 03-17-2024 Lymphocytes/100 WBC (Bld) 20.1 % 19-41 [facility] MCV (mean corpuscular volume ) determinationOrdered By: Rachna Acosta on 03-17-2024 MCV (RBC) [Entitic vol] 94.5 fL 81-99 [facility] Mean corpuscular hemoglobin (MCH) determinationOrdered By: Rachna Acosta on 03-17-2024 MCH (RBC) [Entitic mass] 30.9 pg 27.0-32.0 [facility] Mean corpuscular hemoglobin concentration (MCHC) determinationOrdered By: Rachna Acosta on 03-17-2024 MCHC (RBC) [Mass/Vol] 32.7 g/dL 32-36 [facility] Mean platelet volume determi nationOrdered By: Rachna Acosta on 03-17-2024 Platelet mean volume (Bld) [Entitic vol] 10.2 fL 6.2-12.0 [facility] Monocyte percentageOrdered B y: Rachna Acosta on 03-17-2024 Monocytes/100 WBC (Bld) 12.9 % High 0-10 [facility] Neutrophil percentageOrdered By: Rachna Acosta on 03-17-2024 Neutrophils/100 WBC (Bld) 62.1 % 47-70 [facility] Nucleated red blood cell per centageOrdered By: Rachna Acosta on 03-17-2024 Nucleated RBC/100 WBC (Bld) [Ratio] 0 % 0-5 [facility] Platelet countOrdered By: Michelle Acosta on 03-17-2024 Platelets (Bld) [#/Vol] 284 10*3/uL 150-450 [facility] RBC Auto (Bld) [#/Vol]Ordere d By: Rachna Acosta on 03-17-2024 RBC (Bld) [#/Vol] 4.40 10*6/uL 4.2-5.[address] [facility] White blood cell (WBC) count Ordered By: Rachna Acosta on 03-17-2024 WBC (Bld) [#/Vol] 4.0 10*3/uL Low 4.4-11.0 [facility] Liver Profileon 03-11-2024 Albumin [Mass/Vol] 3.4 g/dL Normal 3.2-5.0 [facility] Comment on above: Order Comment: PLEAS E ADD LIVER ORDERED FROM DR. ACOSTA. Performed By: #### L 500.2500, L500.3400 ####[facility] [address] [place], [address] ALK P 112 U/L Normal 45-117 [facility] Comment on above: Order Comment: PLEAS E ADD LIVER ORDERED FROM DR. ACOSTA. Performed By: #### L 500.2500, L500.3400 ####[facility] [address] [place], [address] ALT [Catalytic activity/Vol] 16 U/L Normal 13-56 [facility] Comment on above: Order Comment: PLEAS E ADD LIVER ORDERED FROM DR. ACOSTA. Performed By: #### L 500.2500, L500.3400 ####[facility] [address] [place], [address] AST [Catalytic activity/Vol] 16 U/L Normal 15-37 [facility] Comment on above: Order Comment: PLEAS E ADD LIVER ORDERED FROM DR. ACOSTA. Performed By: #### L 500.2500, L500.3400 ####[facility] [address] [place], [address] Bilirubin [Mass/Vol] 0.40 mg/dL Normal 0.20-1.00 [facility] Comment on above: Order Comment: PLEAS E ADD LIVER ORDERED FROM DR. ACOSTA. Result Comment: For patients on eltrombopag therapy, use of Dimension [place] TBIL is not recommended. Performed By: #### L 500.2500, L500.3400 ####[facility] [address] [place], [address] Bilirubin.direct [Mass/Vol] 0.15 mg/dL Normal 0.00-0.30 [facility] Comment on above: Order Comment: PLEAS E ADD LIVER ORDERED FROM DR. ACOSTA. Performed By: #### L 500.2500, L500.3400 ####[facility] [address] [place], [address] Globulin (S) [Mass/Vol] 3.5 g/dL Normal 2.2-4.2 [facility] Comment on above: Order Comment: PLEAS E ADD LIVER ORDERED FROM DR. ACOSTA. Performed By: #### L 500.2500, L500.3400 ####[facility] [address] [place], [address] T PROT 6.9 g/dL Normal 6.4-8.2 [facility] Comment on above: Order Comment: PLEAS E ADD LIVER ORDERED FROM DR. ACOSTA. Performed By: #### L 500.2500, L500.3400 ####[facility] [address] [place], [address] Abdomen W/WO IV Contraston 0 - Abdomen W/WO IV Contrast [facility] Imaging Services [address] [place] [address] Abdomen W/WO IV Contrast MR#: [id number] Acct: [id number] Name: CRISELDA STORM Christina Rep #: [id number] : 1945 F 78 From: Sean kaplan MD PCP: Dr. Rachna Acosta DO Status: REG CL Study: Abdomen W/WO IV Contrast Date of Exam: 5 Exam# [id number] Ordering Dr: Rachna Acosta DO [id number] STUDY: CT ABDOMEN WITH AND WITHOUT CONTRAST [...] 15:04 EST Reading Location ID and State: [address] [place] [address] , Service support , CC: Dr. Rachna Acosta, DO Band Tacker: Signed Normal [facility] Basic Metabolic Profile (BMP )on 03-09-2024 BUN/CRE 16.1 RATIO Normal 12-07 [facility] Comment on above: Performed By: #### L 500.2500, L500.3400 ####[facility] [address] [place], [address] CA,Total 9.1 mg/dL Normal 8.5-10.1 [facility] Comment on above: Performed By: #### L 500.2500, L500.3400 ####[facility] [address] [place], [address] Chloride [Moles/Vol] 100 mmol/L Normal 98-107 [facility] Comment on above: Performed By: #### L 500.2500, L500.3400 ####[facility] [address] [place], [address] CO2 [Moles/Vol] 29.0 mmol/L Normal 21.0-32.0 [facility] Comment on above: Performed By: #### L 500.2500, L500.3400 ####[facility] [address] [place], [address] Creatinine [Mass/Vol] 0.99 mg/dL Normal 0.55-1.02 [facility] Comment on above: Result Comment: The validity of the calculated GFR GFRAA in patients over 70 years has not been determined. Clinical correlation is essential. Performed By: #### L 500.2500, L500.3400 ####[facility] [address] [place], [address] EST GFR - AA 70 mL/min Normal >60 [facility] Comment on above: Result Comment: Afri can Armenian GFR Calc Performed By: #### L 500.2500, L500.3400 ####[facility] [address] [place], [address] GAP 6 Normal 5-15 [facility] Comment on above: Performed By: #### L 500.2500, L500.3400 ####[facility] [address] [place], [address] GFR/1.73 sq M.predicted among non-blacks MDRD (S/P/Bld) [Vol rate/Area] 57 mL/min/{1.73_m2} Low >60 [facility] Comment on above: Result Comment: Non- GFR Calc Performed By: #### L 500.2500, L500.3400 ####[facility] [address] [place], [address] Glucose [Mass/Vol] 82 mg/dL Normal 74-106 [facility] Comment on above: Performed By: #### L 500.2500, L500.3400 ####[facility] [address] [place], [address] Potassium [Moles/Vol] 4.2 mmol/L Normal 3.5-5.1 [facility] Comment on above: Performed By: #### L 500.2500, L500.3400 ####[facility] [address] [place], [address] Sodium [Moles/Vol] 135 mmol/L Low 136-145 [facility] Comment on above: Performed By: #### L 500.2500, L500.3400 ####[facility] [address] [place], [address] Urea nitrogen [Mass/Vol] 16 mg/dL Normal 7-18 [facility] Comment on above: Performed By: #### L 500.2500, L500.3400 ####[facility] [address] [place], [address] Bilirubin directOrdered By: Hazel Denson on 03-09-2024 Bilirubin.direct [Mass/Vol] 0.15 mg/dL 0.00-0.30 [facility] Bilirubin, totalOrdered By: Hazel Denson on 03-09-2024 Bilirubin [Mass/Vol] 0.40 mg/dL 0.20-1.00 [facility] Comment on above: For patients on eltr ombopag therapy, use of Dimension [place] TBIL is not recommended. Blood urea nitrogen (BUN)/cr eatinine ratioOrdered By: Hazel Denson on 03-09-2024 Urea nitrogen/Creatinine [Mass ratio] 16.1 mg/mg 10-20 [facility] Carbon dioxide measurementOr dered By: Hazel Denson on 03-09-2024 CO2 [Moles/Vol] 29.0 mmol/L 21.0-32.0 [facility] Chloride measurementOrdered By: Hazel Denson on 03-09-2024 Chloride [Moles/Vol] 100 mmol/L 98-107 [facility] Estimated glomerular filtrat ion rate (GFR) AmericanOrdered By: Hazel Denson on 03-09-2024 Estimated GFR (MDRD) Amer 70 mL/min >60 [facility] Comment on above: GFR Calc Glomerular filtration rate ( GFR) estimationOrdered By: Hazel Denson on 03-09-2024 Estimated GFR (MDRD) Non-Af Amer 57 mL/min Low >60 [facility] Comment on above: Non- GFR Calc GFR/1.73 sq M.predicted among non-blacks MDRD (S/P/Bld) [Vol rate/Area] 57 mL/min/{1.73_m2} Low >60 [facility] Comment on above: Non- GFR Calc Glucose measurementOrdered B y: Hazel Denson on 03-09-2024 Glucose [Mass/Vol] 82 mg/dL 74-106 [facility] Laboratory - Chemistry and C hemistry - challengeOrdered By: Hazel Denson on 03-09-2024 AST [Catalytic activity/Vol] 16 U/L 15-37 [facility] Potassium measurementOrdered By: Hazel Denson on 03-09-2024 Potassium [Moles/Vol] 4.2 mmol/L 3.5-5.1 [facility] Serum anion gap measurementO rdered By: Hazel Denson on 03-09-2024 Anion gap [Moles/Vol] 6 mmol/L 5-15 [facility] Serum globulin measurementOr dered By: Hazel Denson on 03-09-2024 Globulin (S) [Mass/Vol] 3.5 g/dL 2.2-4.2 [facility] Serum or plasma alanine carlos otransferase (ALT) measurementOrdered By: Hazel Denson on 03-09-2024 ALT [Catalytic activity/Vol] 16 U/L 13-56 [facility] Serum or plasma albumin ollie urement (mass/volume)Ordered By: Hazel Denson on 03-09-2024 Albumin [Mass/Vol] 3.4 g/dL 3.2-5.0 [facility] Serum or plasma alkaline nneka sphatase measurementOrdered By: Hazel Denson on 03-09-2024 ALP [Catalytic activity/Vol] 112 U/L 45-117 [facility] Serum or plasma calcium ollie urement (mass/volume)Ordered By: Hazel Denson on 03-09-2024 Calcium [Mass/Vol] 9.1 mg/dL 8.5-10.1 [facility] Serum or plasma creatinine m easurement (mass/volume)Ordered By: Hazel Denson on 03-09-2024 Creatinine [Mass/Vol] 0.99 mg/dL 0.55-1.02 [facility] Comment on above: The validity of the calculated GFR & GFRAA in patients over 70 years has not been determined. Clinical correlation is essential. Serum or plasma urea nitroge n measurement (mass/volume)Ordered By: Hazel Denson on 03-09-2024 Urea nitrogen [Mass/Vol] 16 mg/dL 7-18 [facility] Sodium levelOrdered By: Ryan Denson on 03-09-2024 Sodium [Moles/Vol] 135 mmol/L Low 136-145 [facility] Total proteinOrdered By: Shen Denson on 03-09-2024 Protein [Mass/Vol] 6.9 g/dL 6.4-8.2 [facility] Cardiology Visit Reporton Cardiology Visit Report [facility] [place] [address] OFFICE VISIT Date of Service: 03/06/24 MR#: [id number] Acct: [id number] Name: CRISELDA STORM Rep #: [id number] : 1945 Provider: TIM Castro Age/Sex: 78/F Location: [facility] Status: Signed HPI HPI History of [...] referred to EP. She was evaluated at [facility] in 03/2023. It was recommended that they [...] an echocardiogram done in March 2023 at [facility]. Ejection fraction was noted to be 58%. 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 Normal [facility] CNOVon 10-03-2023 CNOV Office Visit (CARDMN ) CRISELDA STORM ([id number]) 1945 F Date Time Provider Department 10/03/23 12:00 PM LUIS F BRAVO During your visit today, we recorded the following information about you: Pulse Blood pressure Weight Height 58/minute 98/52 51.3 kg 1.651 m Luis F Bravo APRN.CNP 10/03/2023 9:35 PM Signed [facility] Department of Cardiovascular Medicine SECTION OF CARDIAC PACING and ELECTROPHYSIOLOGY OUTPATIENT VISIT DATE October 03, 2023 OUTPATIENT VISIT TYPE EST PRIMARY CARE PHYSICIAN: Rachna Acosta [address] [place] [address] REFERRING PHYSICIAN: Bear Rodarte [address] [facility] [id number] CHIEF COMPLAINT: Post op HISTORY OF PRESENT [...] Cancer Mother Stomach, age 40's Heart Father MA No Known Problems Sister Heart Brother MA other (no other known family hx of [...] Wheezing or (more content not included)... Normal [facility] GAU48ob 10-03-2023 ECG01 Ventricular Rate : 5 3 BPM Atrial Rate : 53 BPM P-R Interval : 166 ms QRS Duration : 84 ms Q-T Interval : 346 ms QTC Calculation(Bazett) : 324 ms Calculated P Beaver : 80 degrees Calculated R Beaver : 16 degrees Calculated T Beaver : 257 degrees SINUS BRADYCARDIA NONSPECIFIC ST AND T WAVE ABNORMALITY ABNORMAL ECG Confirmed by JOHN ELLIS MD ([id number]) on 11/02/2023 5:25:43 PM NAME : CRISELDA STORM PID : [id number] : 1945 Gender : Female Race : [...] RODARTE Acquired by : BIENVENIDO MCKEON Normal [facility] ARRHYTHMIA TRANS TELE MEASUR [place] 09-16-2023 Measure CO Interval 130 [facility] MEASURE QRS Interval [address] [facility] MEASURE QT Interval [address] [facility] MEASURE RR INTERVAL MAX 52.49 [facility] Symptoms routine [facility] Review of transmission demonstrates sinus bradycardia NOTE [...] CARDIAC DATA AND REPORT, Scanned Documents section. [facility] ARRHYTHMIA TRANS TELE MEASUR [place] 09-06-2023 Measure CO Interval [facility] MEASURE QRS Interval 60 [facility] MEASURE QT Interval 429 [facility] MEASURE RR INTERVAL MAX 47.86 [facility] Symptoms routine [facility] Review of transmission demonstrates sinus bradycardia with [...] CARDIAC DATA AND REPORT, Scanned Documents section. [facility] ARRHYTHMIA TRANS TELE MEASUR [place] 09-05-2023 Measure CO Interval [address] [facility] MEASURE QRS Interval 60 [facility] MEASURE QT Interval 379 [facility] MEASURE RR INTERVAL MAX 47.73 [facility] Symptoms routine [facility] Review of transmission demonstrates sinus bradycardia with [...] CARDIAC DATA AND REPORT, Scanned Documents section. [facility] Measure CO Interval [address] [facility] MEASURE QRS [...] CARDIAC DATA AND REPORT, Scanned Documents section. [facility] ARRHYTHMIA TRANS TELE MEASUR [place] 08-20-2023 Measure CO Interval 198 [facility] MEASURE QRS Interval 87 [facility] MEASURE QT Interval 463 [facility] MEASURE RR INTERVAL MAX 47.23 [facility] Symptoms Routine - multiple tries [facility] Review of transmission demonstrates sinus bradycardia with [...] CARDIAC DATA AND REPORT, Scanned Documents section. [facility] ARRHYTHMIA TRANS TELE MEASUR [place] 08-07-2023 Measure CO Interval 130 [facility] MEASURE QRS Interval 114 [facility] MEASURE QT Interval 493 [facility] MEASURE RR INTERVAL MAX 47.11 [facility] Symptoms routine [facility] Review of transmission demonstrates sinus bradycardia NOTE [...] CARDIAC DATA AND REPORT, Scanned Documents section. [facility] ARRHYTHMIA TRANS TELE MEASUR [place] 08-02-2023 Arrhythmia-Activity taken multiple times with cell [facility] MEASURE QRS Interval 87 [facility] MEASURE QT Interval 436 [facility] MEASURE RR INTERVAL MAX 57.93 [facility] Symptoms routine [facility] Review of transmission demonstrates possible sinus bradycardia [...] CARDIAC DATA AND REPORT, Scanned Documents section. [facility] ARRHYTHMIA TRANS TELE MEASUR [place] 07-29-2023 Measure CO Interval [facility] MEASURE QRS Interval 80 [facility] MEASURE QT Interval 436 [facility] MEASURE RR INTERVAL MAX 61.72 [facility] Symptoms routine [facility] Review of transmission demonstrates sinus rhythm NOTE [...] CARDIAC DATA AND REPORT, Scanned Documents section. [facility] ARRHYTHMIA TRANS TELE MEASUR [place] 07-17-2023 Measure CO Interval [address] [facility] MEASURE QRS Interval 97 [facility] MEASURE QT Interval 474 [facility] MEASURE RR INTERVAL MAX 58.12 [facility] Symptoms Routine [facility] Review of transmission demonstrates sinus rhythm NOTE [...] CARDIAC DATA AND REPORT, Scanned Documents section. [facility] ARRHYTHMIA TRANS TELE MEASUR [place] 07-10-2023 Measure CO Interval 137 [facility]idel [facility] MEASURE QRS Interval 97 [facility] MEASURE QT Interval 464 [facility] MEASURE RR INTERVAL MAX 58.31 [facility] Symptoms Baseline [facility] Review of transmission demonstrates sinus bradycardia NOTE [...] CARDIAC DATA AND REPORT, Scanned Documents section. [facility] Paras 07-04-2023 CNPN Telephone (PODCCP) CRISELDA STORM ([id number]) 1945 F Date Time Provider Department 07/04/23 [...] Reason for Visit: Follow Up Phone Call [2051] Cmt: Relate care discharge follow ki-sysbajsyd-frm clear Prescriptions as of 07/04/2023 - furosemide [...] Status:Closed by ANI VELASQUEZ on 07/04/23 Normal [facility] ANES POSTPROC EVALon 024 ANES POSTPROC EVAL HNO ID: [id number] Author: KIP VALENCIA MD Service: ? Author Type: Anesthesiologist Type: Anesthesia Postprocedure Evaluation Filed: 07/03/2023 16:57 Note Text: POST ANESTHESIA EVALUATION NOTE : 1945 Procedure Summary Date: 07/03/23 Room / Location: [address] EP LAB Anesthesia Start: 826 Anesthesia [...] July 03, 2023 TIME: 4:57 PM CSN: [id number] Normal [facility] ANES PRE-OPon 07-03-2023 ANES PRE-OP HNO ID: [id number] Author: KIP VALENCIA MD Service: ? Author Type: Anesthesiologist Type: Anesthesia Preprocedure Evaluation Filed: 07/03/2023 07:19 Note Text: ANESTHESIOLOGY DAY OF SURGERY NOTE : 1945 Procedure Information Date/Time: 07/03/23 0700 Procedure: COMPLETE EPS W/PVI ABL W/WO 3D MAP ICE Location: [facility] / EP LAB Surgeons: Bear [...] and consent discussed: yes. Patient / Responsible Alliance Party agrees to proceed: yes Patient / Surrogate [...] July 03, 2023 TIME: 7:18 AM CSN: [id number] Normal [facility] Basic metabolic 2000 panelon 07-03-2023 Anion gap [Moles/Vol] 11 mmol/L Normal 9-18 [facility] Comment on above: Order Comment: Isabel zayas Type: BLOOD SPECIMEN Ordering Facility: [facility] Address: [address] [place] [address] Performed By: #### 5 8410-2 #### [facility] CLIA [id number] [address] [place] [address] [place] Calcium [Mass/Vol] 9.0 mg/dL Normal 8.5-10.2 [facility] Comment on above: Order Comment: Isabel zayas Type: BLOOD SPECIMEN Ordering Facility: [facility] Address: [address] [place] [address] Performed By: #### 5 8410-2 #### [facility] CLIA [id number] [address] [place] [address] [place] Chloride [Moles/Vol] 97 mmol/L Normal 97-105 [facility] Comment on above: Order Comment: Jazzyi men Type: BLOOD SPECIMEN Ordering Facility: [facility] Address: [address] [place] [address] Performed By: #### 5 8410-2 #### [facility] CLIA [id number] [address] [place] [address] [place] CO2 [Moles/Vol] 28 mmol/L Normal 22-30 [facility] Comment on above: Order Comment: Speci men Type: BLOOD SPECIMEN Ordering Facility: [facility] Address: [address] [place] [address] Performed By: #### 5 8410-2 #### [facility] CLIA [id number] [address] [place] [address] [place] Creatinine [Mass/Vol] 0.77 mg/dL Normal 0.58-0.96 [facility] Comment on above: Order Comment: Speci men Type: BLOOD SPECIMEN Ordering Facility: [facility] Address: [address] [place] [address] Performed By: #### 5 8410-2 #### [facility] CLIA [id number] [address] [place] [address] [place] Creatinine and Glomerular filtration rate.predicted panel (S/P/Bld) 80 mL/min/1.73m??? Normal >=60 [facility] Comment on above: Order Comment: Speci men Type: BLOOD SPECIMEN Ordering Facility: [facility] Address: [address] [place] [address] Result Comment: Valentine mated Glomerular Filtration Rate [...] GFR. Performed By: #### 5 8410-2 #### [facility] CLIA [id number] [address] [place] [address] [place] Glucose [Mass/Vol] 96 mg/dL Normal 74-99 [facility] Comment on above: Order Comment: Speci men Type: BLOOD SPECIMEN Ordering Facility: [facility] Address: [address] [place] [address] Result Comment: The [employer] Diabetes Association (ADA) provides guidance for cutoff [...] Standards of Medical Care in Diabetes 2016, [employer]. Diabetes Care. 2016.39(Suppl 1). Performed By: #### 5 8410-2 #### [facility] CLIA [id number] [address] [place] [address] [place] Potassium [Moles/Vol] 4.0 mmol/L Normal 3.7-5.1 [facility] Comment on above: Order Comment: Speci men Type: BLOOD SPECIMEN Ordering Facility: [facility] Address: [address] [place] [address] Performed By: #### 5 8410-2 #### [facility] CLIA [id number] [address] [place] [address] [place] Sodium [Moles/Vol] 136 mmol/L Normal 136-144 [facility] Comment on above: Order Comment: Speci men Type: BLOOD SPECIMEN Ordering Facility: [facility] Address: [address] [place] [address] Performed By: #### 5 8410-2 #### [facility] CLIA [id number] [address] [place] [address] [place] Urea nitrogen [Mass/Vol] 14 mg/dL Normal 7-21 [facility] Comment on above: Order Comment: Speci men Type: BLOOD SPECIMEN Ordering Facility: [facility] Address: [address] [place] [address] Performed By: #### 5 8410-2 #### [facility] CLIA [id number] [address] [place] [address] [place] CBC panel Auto (Bld)on 07-02 Erythrocyte distribution width (RBC) [Ratio] 14.4 % Normal 11.5-15.0 [facility] Comment on above: Order Comment: Speci men Type: BLOOD SPECIMEN Ordering Facility: [facility] Address: [address] [place] [address] Performed By: #### 5 8410-2 #### [facility] CLIA [id number] [address] [place] [address] [place] Hematocrit (Bld) [Volume fraction] 42.4 % Normal 36.0-46.0 [facility] Comment on above: Order Comment: Speci men Type: BLOOD SPECIMEN Ordering Facility: [facility] Address: [address] [place] [address] Performed By: #### 5 8410-2 #### [facility] CLIA [id number] [address] [place] [address] [place] Hemoglobin (Bld) [Mass/Vol] 13.6 g/dL Normal 11.5-15.5 [facility] Comment on above: Order Comment: Speci men Type: BLOOD SPECIMEN Ordering Facility: [facility] Address: [address] [place] [address] Performed By: #### 5 8410-2 #### [facility] CLIA [id number] [address] [place] [address] [place] MCH (RBC) [Entitic mass] 31.6 pg Normal 26.0-34.0 [facility] Comment on above: Order Comment: Speci men Type: BLOOD SPECIMEN Ordering Facility: [facility] Address: [address] [place] [address] Performed By: #### 5 8410-2 #### [facility] CLIA [id number] [address] [place] [address] [place] MCHC (RBC) [Mass/Vol] 32.1 g/dL Normal 30.5-36.0 [facility] Comment on above: Order Comment: Speci men Type: BLOOD SPECIMEN Ordering Facility: [facility] Address: [address] [place] [address] Performed By: #### 5 8410-2 #### [facility] CLIA [id number] [address] [place] [address] [place] MCV (RBC) [Entitic vol] 98.6 fL Normal 80.0-100.0 [facility] Comment on above: Order Comment: Speci men Type: BLOOD SPECIMEN Ordering Facility: [facility] Address: [address] [place] [address] Performed By: #### 5 8410-2 #### [facility] CLIA [id number] [address] [place] [address] [place] Nucleated RBC (Bld) [#/Vol] 0.03 10*3/uL High <0.01 [facility] Comment on above: Order Comment: Speci men Type: BLOOD SPECIMEN Ordering Facility: [facility] Address: [address] [place] [address] Performed By: #### 5 8410-2 #### [facility] CLIA [id number] [address] [place] [address] [place] Platelet mean volume (Bld) [Entitic vol] 11.2 fL Normal 9.0-12.7 [facility] Comment on above: Order Comment: Speci men Type: BLOOD SPECIMEN Ordering Facility: [facility] Address: [address] [place] [address] Performed By: #### 5 8410-2 #### [facility] CLIA [id number] [address] [place] [address] [place] Platelets (Bld) [#/Vol] 333 10*3/uL Normal 150-400 [facility] Comment on above: Order Comment: Speci men Type: BLOOD SPECIMEN Ordering Facility: [facility] Address: [address] [place] [address] Performed By: #### 5 8410-2 #### [facility] CLIA [id number] [address] [place] [address] [place] RBC (Bld) [#/Vol] 4.30 10*6/uL Normal 3.90-5.20 [facility] Comment on above: Order Comment: Speci men Type: BLOOD SPECIMEN Ordering Facility: [facility] Address: [address] [place] [address] Performed By: #### 5 8410-2 #### [facility] CLIA [id number] [address] [place] [address] [place] WBC (Bld) [#/Vol] 4.54 10*3/uL Normal 3.70-11.00 [facility] Comment on above: Order Comment: Speci men Type: BLOOD SPECIMEN Ordering Facility: [facility] Address: [address] [place] [address] Performed By: #### 5 8410-2 #### [facility] CLIA [id number] [address] [place] [address] [place] [id number] 07-03-2023 ECG01 Ventricular Rate : 5 8 BPM Atrial Rate : 58 BPM P-R Interval : 190 ms QRS Duration : 96 ms Q-T Interval : 526 ms QTC Calculation(Bazett) : 516 ms Calculated P Beaver : 69 degrees Calculated R Beaver : 26 degrees Calculated T Beaver : 62 degrees SINUS BRADYCARDIA LOW VOLTAGE QRS, CONSIDER PULMONARY DISEASE, PERICARDIAL EFFUSION, OR NORMAL VARIANT ST & ANTEROLATERAL T WAVE ABNORMALITY PROLONGED QT INTERVAL OR TU FUSION, CONSIDER HYPOKALEMIA ABNORMAL ECG Confirmed by CINTHIA SAINI MD ([id number]) on 07/23/2023 1:56:18 PM NAME : CRISELDA STORM PID : [id number] : 1945 Gender : Female Race : [...] Referred By : , Acquired by : [id number], Normal [facility] CNOVon 06-26-2023 CNOV Office Visit (CARDMN ) CRISELDA STORM ([id number]) 1945 F Date Time Provider Department 06/26/23 3:00 PM TISHA ARAUJO CARDMN During your visit today, we recorded the following information about you: Pulse Blood pressure Weight Height 60/minute 130/68 56.7 kg 1.613 m Tisha Araujo, RETAIL DIRECTOR.RESEARCH DIRECTOR 06/26/2023 4:47 PM Signed [facility] Department of Cardiovascular Medicine SECTION OF CARDIAC PACING and ELECTROPHYSIOLOGY OUTPATIENT VISIT DATE June 26, 2023 OUTPATIENT VISIT TYPE ESTABLISHED PRIMARY CARE PHYSICIAN: Rachna Acosta [address] [place] [address] Temporary Data Entry Clerk: Dr. Melchor REFERRING PHYSICIAN: Self CHIEF COMPLAINT: [...] in March, she had an echo at [facility] which revealed EF had normalized to [...] Cancer Mother Stomach, age 40's Heart Father MA No Known Problems Sister Heart Brother MA other (no other known family hx of [...] Itching-No. Hematological (more content not included)... Normal [facility] CONFIRM BLOOD TYPEon 024 ABO A Normal [facility] Comment on above: Order Comment: Speci men Type: BLOOD SPECIMEN Ordering Facility: [facility] Address: [address] [place] [address] Performed By: #### 5 8410-2 #### [facility] CLIA [id number] [address] [place], [place] [address] [place] [address] [place] Rh Nom (Bld) Positive Normal [facility] Comment on above: Order Comment: Speci men Type: BLOOD SPECIMEN Ordering Facility: [facility] Address: [address] [place] [address] Performed By: #### 5 8410-2 #### [facility] CLIA [id number] [address] [place] [address] [place] PULMONARY VEIN [...] TECHNIQUE: SCANNER: Siemens Somatom Force Dual source [id number] scanner PROTOCOL: Sequential imaging of the heart [...] Almonte images reconstructed, saved, and available in [employer] 'Get Images'. STUDY LIMITATIONS: None. RESULT: LINES, [...] AORTIC DIMENSIONS: AORTIC ROOT: 3.5 cm measured ursgn-ys-llxce mid ASCENDING THORACIC AORTA: 3.2 cm mid DESCENDING THORACIC AORTA: 2.2 cm limited upper ABDOMEN: small cystic lesion in the right lobe of liver. - adjacent 7 mm focal hyperdense lesion, which may represent hemangioma but is incompletely characterized in the current study Clinical correlation and if indicated dedicated interval abdominal follow-up studies are recommended Wash Driller (topogram) images: No additional findings. IMPRESSION: WIDELY [...] (more content not included)... Invalid Interpretation Code [facility] CTA Pulmonary veins W contra st IVOrdered By: Ccrei Provider on 06-26-2023 Interpretation and review of laboratory results Abnormal [facility] Radiology Result ACTIONABLE Abnormal Guilherme haque [facility] Comment on above: This report contains an [...] contact your provider for the next steps. [facility] CTA Pulmonary veins W contra st Brandon [...] be communicated with the ordering provider via [employer] staff message or phone message by [employer] within 2 business days of report finalization. --END OF FINDING-- Band Tacker: JOSE M Transcribe Date/Time: Jun 26 2023 3:11P Dictated by : ERIKA TELLO MD This examination was interpreted and the report reviewed and electronically signed by: ANAY IBARRA MD on Jun 26 2023 4:10PM [facility] DIVISION OF RADIOLOGY * * *Final Report* [...] TECHNIQUE: SCANNER: Siemens Somatom Force Dual source [id number] scanner PROTOCOL: Sequential imaging of the heart [...] Almonte images reconstructed, saved, and available in [employer] 'Get Images'. STUDY LIMITATIONS: None. RESULT: LINES, [...] AORTIC DIMENSIONS: AORTIC ROOT: 3.5 cm measured iloti-sl-lrjhm mid ASCENDING THORACIC AORTA: 3.2 cm mid DESCENDING THORACIC AORTA: 2.2 cm limited upper ABDOMEN: small cystic lesion in the right lobe of liver. - adjacent 7 mm focal hyperdense lesion, which may represent hemangioma but is incompletely characterized in the current study Clinical correlation and if indicated dedicated interval abdominal follow-up studies are recommended Wash Driller (topogram) images: No additional findings. DIVISION OF RADIOLOGY Provider, [facility] - 06/26/2023 * * *Final Report* * [...] TECHNIQUE: SCANNER: Siemens Somatom Force Dual source [id number] scanner PROTOCOL: Sequential imaging of the heart [...] Almonte images reconstructed, saved, and available in [employer] 'Get Images'. STUDY LIMITATIONS: None. RESULT: LINES, [...] AORTIC DIMENSIONS: AORTIC ROOT: 3.5 cm measured egcsh-ei-skrkx mid ASCENDING THORACIC AORTA: 3.2 cm mid DESCENDING THORACIC AORTA: 2.2 cm limited upper ABDOMEN: small cystic lesion in the right lobe of liver. - adjacent 7 mm focal hyperdense lesion, which may represent hemangioma but is incompletely characterized in the current study Clinical correlation and if indicated dedicated interval abdominal follow-up studies are recommended Wash Driller (topogram) images: No additional findings. IMPRESSION IMPRESSION: [...] clips in the (more content not included)... [facility] Radiology Study observation (narrative) [facility] ECG COMPLETEon 06-26-2023 ECG COMPLETE Ventricular Rate : 6 0 BPM Atrial Rate : 60 BPM P-R Interval : 170 ms QRS Duration : 78 ms Q-T Interval : 472 ms QTC Calculation(Bazett) : 472 ms Calculated P Beaver : 69 degrees Calculated R Beaver : 15 degrees Calculated T Beaver : 43 degrees NORMAL SINUS RHYTHM NONSPECIFIC ST AND T WAVE ABNORMALITY ABNORMAL ECG Confirmed by KIMBERLEE DIAZ MD ([id number]) on 07/17/2023 9:59:22 AM NAME : CRISELDA STORM PID : [id number] : 1945 Gender : Female Race : ORD : [id number] Procedure Date : Jun 26 2023 13:33:44 Edit Date : Jul 17 2023 09:59:23 Diagnosis: NORMAL SINUS RHYTHM NONSPECIFIC ST AND T WAVE ABNORMALITY ABNORMAL ECG Confirmed by KIMBERLEE DIAZ MD ([id number]) on 07/17/2023 9:59:22 AM Test Reason : Location : 314 : J14 J1-4 Overread By : KIMBERLEE DIAZ MD Edited By : KIMBERLEE DIAZ MD Referred By : BEAR RODARTE Acquired by : CHE MORAN Normal [facility] TYPE AND SCREEN,30 DAYon ABO A Normal [facility] Comment on above: Order Comment: Speci men Type: BLOOD SPECIMEN Ordering Facility: [facility] Address: [address] [place] [address] Performed By: #### 5 8410-2 #### [facility] CLIA [id number] [address] [place] [address] [place] HISTORICAL AB SCR STATUS Negative Normal [facility] Comment on above: Order Comment: Speci men Type: BLOOD SPECIMEN Ordering Facility: [facility] Address: [address] [place] [address] Performed By: #### 5 8410-2 #### [facility] CLIA [id number] [address] [place] [address] [place] Rh Nom (Bld) Positive Normal [facility] Comment on above: Order Comment: Speci men Type: BLOOD SPECIMEN Ordering Facility: [facility] Address: [address] [place] [address] Performed By: #### 5 8410-2 #### [facility] CLIA [id number] [address] [place] [address] [place] CNPMinerva 06-12-2023 CNPN Telephone ([facility]) CRISELDA STORM ([id number]) 1945 F Date Time Provider Department 06/12/23 BEAR RODARTE [facility] During your visit today, we recorded the [...] Status:Closed by JANUARY CLARK on 06/12/23 Normal [facility] Basic metabolic 2000 panelon 05-29-2023 Anion gap [Moles/Vol] 9 mmol/L Normal 9-18 [facility] Comment on above: Order Comment: Speci men Type: BLOOD SPECIMEN Ordering Facility: [facility] Address: [address] [place], [place] [address] Performed By: #### 5 8410-2 #### [facility] CLIA [id number] [address] [place] [address] [place] Calcium [Mass/Vol] 9.8 mg/dL Normal 8.5-10.2 [facility] Comment on above: Order Comment: Speci men Type: BLOOD SPECIMEN Ordering Facility: [facility] Address: [address] [place] [address] Performed By: #### 5 8410-2 #### [facility] CLIA [id number] [address] [place] [address] [place] Chloride [Moles/Vol] 95 mmol/L Low 97-105 [facility] Comment on above: Order Comment: Speci men Type: BLOOD SPECIMEN Ordering Facility: [facility] Address: [address] [place] [address] Performed By: #### 5 8410-2 #### [facility] CLIA [id number] [address] [place] [address] [place] CO2 [Moles/Vol] 30 mmol/L Normal 22-30 [facility] Comment on above: Order Comment: Speci men Type: BLOOD SPECIMEN Ordering Facility: [facility] Address: [address] [place], [place] [address] Performed By: #### 5 8410-2 #### [facility] CLIA [id number] [address] [place] [id number] [place] Creatinine [Mass/Vol] 0.86 mg/dL Normal 0.58-0.96 [facility] Comment on above: Order Comment: Speci men Type: BLOOD SPECIMEN Ordering Facility: [facility] Address: [address] [place], [place] [address] Performed By: #### 5 8410-2 #### [facility] CLIA [id number] [address] [place] [address] [place] Creatinine and Glomerular filtration rate.predicted panel (S/P/Bld) 70 mL/min/1.73m??? Normal >=60 [facility] Comment on above: Order Comment: Isabel zayas Type: BLOOD SPECIMEN Ordering Facility: [facility] Address: [address] [place] [address] Result Comment: Valentine mated Glomerular Filtration Rate [...] GFR. Performed By: #### 5 8410-2 #### [facility] CLIA [id number] [address] [place] [address] [place] Glucose [Mass/Vol] 100 mg/dL High 74-99 [facility] Comment on above: Order Comment: Isabel zayas Type: BLOOD SPECIMEN Ordering Facility: [facility] Address: [address] [place] [address] Result Comment: The [place] Diabetes [employer] (ADA) provides guidance for cutoff [...] Standards of Medical Care in Diabetes 2016, [employer]. Diabetes Care. 2016.39(Suppl 1). Performed By: #### 5 8410-2 #### [facility] CLIA [id number] [address] [place] [address] [place] Potassium [Moles/Vol] 4.4 mmol/L Normal 3.7-5.1 [facility] Comment on above: Order Comment: Speci men Type: BLOOD SPECIMEN Ordering Facility: [facility] Address: [address] [place] [address] Performed By: #### 5 8410-2 #### [facility] CLIA [id number] [address] [place] [address] [place] Sodium [Moles/Vol] 134 mmol/L Low 136-144 [facility] Comment on above: Order Comment: Speci men Type: BLOOD SPECIMEN Ordering Facility: [facility] Address: [address] [place] [address] Performed By: #### 5 8410-2 #### [facility] CLIA [id number] [address] [place] [address] [place] Urea nitrogen [Mass/Vol] 17 mg/dL Normal 7-21 [facility] Comment on above: Order Comment: Speci men Type: BLOOD SPECIMEN Ordering Facility: [facility] Address: [address] [place] [address] Performed By: #### 5 8410-2 #### [facility] CLIA [id number] [address] [place] [address] [place] CBC panel Auto (Bld)on 05-28 Erythrocyte distribution width (RBC) [Ratio] 14.3 % Normal 11.5-15.0 [facility] Comment on above: Order Comment: Speci men Type: BLOOD SPECIMEN Ordering Facility: [facility] Address: [address] [place] [address] Performed By: #### 5 8410-2 #### [facility] CLIA [id number] [address] [place] [address] [place] Hematocrit (Bld) [Volume fraction] 41.9 % Normal 36.0-46.0 [facility] Comment on above: Order Comment: Speci men Type: BLOOD SPECIMEN Ordering Facility: [facility] Address: [address] [place] [address] Performed By: #### 5 8410-2 #### [facility] CLIA [id number] [address] [place] [address] [place] Hemoglobin (Bld) [Mass/Vol] 13.6 g/dL Normal 11.5-15.5 [facility] Comment on above: Order Comment: Speci men Type: BLOOD SPECIMEN Ordering Facility: [facility] Address: [address] [place] [address] Performed By: #### 5 8410-2 #### [facility] CLIA [id number] [address] [place] [address] [place] MCH (RBC) [Entitic mass] 32.0 pg Normal 26.0-34.0 [facility] Comment on above: Order Comment: Speci men Type: BLOOD SPECIMEN Ordering Facility: [facility] Address: [address] [place] [address] Performed By: #### 5 8410-2 #### [facility] CLIA [id number] [address] [place] [address] [place] MCHC (RBC) [Mass/Vol] 32.5 g/dL Normal 30.5-36.0 [facility] Comment on above: Order Comment: Speci men Type: BLOOD SPECIMEN Ordering Facility: [facility] Address: [address] [place] [address] Performed By: #### 5 8410-2 #### [facility] CLIA [id number] [address] [place] [address] [place] MCV (RBC) [Entitic vol] 98.6 fL Normal 80.0-100.0 [facility] Comment on above: Order Comment: Speci men Type: BLOOD SPECIMEN Ordering Facility: [facility] Address: [address] [place] [address] Performed By: #### 5 8410-2 #### [facility] CLIA [id number] [address] [place] [address] [place] Nucleated RBC (Bld) [#/Vol] 10*3/uL Normal <0.01 [facility] Comment on above: Order Comment: Speci men Type: BLOOD SPECIMEN Ordering Facility: [facility] Address: [address] [place] [address] Performed By: #### 5 8410-2 #### [facility] CLIA [id number] [address] [place] [address] [place] Platelet mean volume (Bld) [Entitic vol] 10.7 fL Normal 9.0-12.7 [facility] Comment on above: Order Comment: Speci men Type: BLOOD SPECIMEN Ordering Facility: [facility] Address: [address] [place] [address] Performed By: #### 5 8410-2 #### [facility] CLIA [id number] [address] [place] [address] [place] Platelets (Bld) [#/Vol] 311 10*3/uL Normal 150-400 [facility] Comment on above: Order Comment: Speci men Type: BLOOD SPECIMEN Ordering Facility: [facility] Address: [address] [place] [address] Performed By: #### 5 8410-2 #### [facility] CLIA [id number] [address] [place] [address] [place] RBC (Bld) [#/Vol] 4.25 10*6/uL Normal 3.90-5.20 [facility] Comment on above: Order Comment: Speci men Type: BLOOD SPECIMEN Ordering Facility: [facility] Address: [address] [place] [address] Performed By: #### 5 8410-2 #### [facility] CLIA [id number] [address] [place] [address] [place] WBC (Bld) [#/Vol] 4.05 10*3/uL Normal 3.70-11.00 [facility] [facility] Comment on above: Order Comment: Speci men Type: BLOOD SPECIMEN Ordering Facility: [facility] Address: [address] [place] [address] Performed By: #### [id number] #### [facility] CLIA [id number] [address] [place] [address] [facility] CNPMinerva 05-24-2023 CNPN Telephone (EPSMN) CRISELDA STORM ([id number]) 1945 F Date Time Provider Department 05/24/23 [facility] During your visit today, we recorded the following information about you: January Clark RN 05/24/2023 11:01 AM Signed ----- Message from Bear Rodarte MD sent at 05/16/2023 9:37 AM EDT ----- Regarding: Schedule AF/AFL ablation Patient: Criselda Storm EP Lab Procedure requested: Ablations PVI ablation CPT 37871 Anticoagulation Status: Eliquis (apixaban) Requesting Physician: Bear [...] [I48.19] Order(s):BASIC METABOLIC PNL [SQBMP] Order #: [id number] FUTURE CBC [SQCBC] Order #: [id number] FUTURE CONFIRM BLOOD TYPE [SQCONABO] Order #: [id number] FUTURE TYPE AND SCREEN,30 DAY [[id number]] Order #: [id number] FUTURE ECG COMPLETE [ECG01] Order #: [id number] FUTURE CT PULMONARY VEIN W IVCON [0477311] Order #: [id number] FUTURE iv contrast (will be provided with [...] EachRfl: 0 CREATININE BLD [SQCRET] Order #: [id number] FUTURE Prescriptions as of 05/24/2023 - iv [...] (RADIOLOGY PROCEDURE) (more content not included)... Normal [facility] percentageOrdered B y: Hazel Denson on 02-28-2023 Chloride [Moles/Vol] 101 mmol/L 98-107 [facility] Glucose [Mass/Vol] 114 mg/dL 74-106 [facility] Comment on above: Fasting Glucose resu lt from 100 to 125 mg/dL suggests IMPAIRED HOMEOSTASIS per A.D.A. criteria. Potassium [Moles/Vol] 3.3 mmol/L 3.5-5.1 [facility] Sodium [Moles/Vol] 139 mmol/L 136-145 [facility] WBC (Bld) [#/Vol] 6.8 10*3/uL 4.4-11.0 [facility] Blood erythrocytes count (nu mber/volume)Ordered By: Hazel Denson on 02-28-2023 RBC (Bld) [#/Vol] 3.86 10*6/uL 4.2-5.[address] [facility] Blood hemoglobin measurement (mass/volume)Ordered By: Hazel Denson on 02-28-2023 Hemoglobin (Bld) [Mass/Vol] 12.5 g/dL 12.0-15.0 [facility] Blood platelet mean volumeOr dered By: Hazel Denson on 02-28-2023 Platelet mean volume (Bld) [Entitic vol] 10.9 fL 6.2-12.0 [facility] Determination of erythrocyte mean corpuscular volume (MCV)Ordered By: Hazel Denson on 02-28-2023 MCV (RBC) [Entitic vol] 100.5 fL 81-99 [facility] Hematocrit Auto (Bld) [Volum e fraction]Ordered By: Hazel Denson on 02-28-2023 Hematocrit (Bld) [Volume fraction] 38.8 % 37-47 [facility] - Chemistry and C hemistry - challengeOrdered By: Hazel Denson on 02-28-2023 CO2 [Moles/Vol] 31.0 mmol/L 21.0-32.0 [facility] Natriuretic peptide B (Bld) [Mass/Vol] 641.1 pg/mL 0-100 [facility] Urea nitrogen/Creatinine [Mass ratio] 12.1 mg/mg 10-20 [facility] - Hematology and Cell countsOrdered By: Hazel Denson on 02-28-2023 Erythrocyte distribution width (RBC) [Entitic vol] 58.4 fL 35.1-43.9 [facility] Erythrocyte distribution width (RBC) [Ratio] 15.8 % 11.6-14.6 [facility] MCH (RBC) [Entitic mass] 32.4 pg 27.0-32.0 [facility] MCHC Auto (RBC) [Mass/Vol]Or dered By: Hazel Denson on 02-28-2023 MCHC (RBC) [Mass/Vol] 32.2 g/dL 32-36 [facility] No Panel InformationOrdered By: Hazel Denson on 02-28-2023 Estimated GFR (MDRD) Amer 77 mL/min >60 [facility] Comment on above: GFR Calc Estimated GFR (MDRD) Non-Af Amer 64 mL/min >60 [facility] Comment on above: Non- GFR Calc Platelets bldOrdered By: Shen Denson on 02-28-2023 Platelets (Bld) [#/Vol] 337 10*3/uL 150-450 [facility] Serum or plasma calcium ollie urement (mass/volume)Ordered By: Hazel Denson on 02-28-2023 Calcium [Mass/Vol] 9.0 mg/dL 8.5-10.1 [facility] Serum or plasma creatinine m easurement (mass/volume)Ordered By: Hazel Denson on 02-28-2023 Creatinine [Mass/Vol] 0.91 mg/dL 0.55-1.02 [facility] Comment on above: The validity of the calculated GFR & GFRAA in patients over 70 years has not been determined. Clinical correlation is essential. Serum or plasma urea nitroge n measurement (mass/volume)Ordered By: Hazel Denson on 02-28-2023 Urea nitrogen [Mass/Vol] 11 mg/dL 7-18 [facility] Thin prep Papanicolaou smear with manual screeningOrdered By: Hazel Denson on 02-28-2023 Thin prep Papanicolaou smear with manual screening 7 5-15 [facility] Absolute lymphocyte countOrd ered By: Hazel Denson on 12-20-2022 Lymphocytes Auto (Unsp spec) [#/Vol] 1.14 10*3/uL 0.83-4.51 [facility] Basophil percentageOrdered B y: Hazel Denson on 12-20-2022 Basophils/100 WBC (Bld) 1.2 % 0-1 [facility] Chloride [Moles/Vol] 98 mmol/L 98-107 [facility] Eosinophils/100 WBC (Bld) 0.9 % 0-5 [facility] Glucose [Mass/Vol] 107 mg/dL 74-106 [facility] Comment on above: Fasting Glucose resu lt from 100 to 125 mg/dL suggests IMPAIRED HOMEOSTASIS per A.D.A. criteria. Neutrophils (Bld) [#/Vol] 4.0 10*3/uL 2.0-7.7 [facility] Neutrophils/100 WBC (Bld) 69.1 % 47-70 [facility] Potassium [Moles/Vol] 3.8 mmol/L 3.5-5.1 [facility] Sodium [Moles/Vol] 137 mmol/L 136-145 [facility] WBC (Bld) [#/Vol] 5.8 10*3/uL 4.4-11.0 [facility] Blood erythrocytes count (nu mber/volume)Ordered By: Hazel Denson on 12-20-2022 RBC (Bld) [#/Vol] 4.35 10*6/uL 4.2-5.[address] [facility] Blood hemoglobin measurement (mass/volume)Ordered By: Hazel Denson on 12-20-2022 Hemoglobin (Bld) [Mass/Vol] 13.6 g/dL 12.0-15.0 [facility] Blood lymphocytes/100 leukoc ytesOrdered By: Hazel Denson on 12-20-2022 Lymphocytes/100 WBC (Bld) 19.8 % 19-41 [facility] Blood monocytes/100 leukocyt esOrdered By: Hazel Denson on 12-20-2022 Monocytes/100 WBC (Bld) 8.7 % 0-10 [facility] Blood platelet mean volumeOr dered By: Hazel Denson on 12-20-2022 Platelet mean volume (Bld) [Entitic vol] 12.3 fL 6.2-12.0 [facility] Determination of erythrocyte mean corpuscular volume (MCV)Ordered By: Hazel Denson on 12-20-2022 MCV (RBC) [Entitic vol] 100.5 fL 81-99 [facility] Hematocrit Auto (Bld) [Volum e fraction]Ordered By: Hazel Denson on 12-20-2022 Hematocrit (Bld) [Volume fraction] 43.7 % 37-47 [facility] Laboratory - Chemistry and C hemistry - challengeOrdered By: Hazel Denson on 12-20-2022 CO2 [Moles/Vol] 33.0 mmol/L 21.0-32.0 [facility] Urea nitrogen/Creatinine [Mass ratio] 15.5 mg/mg 10-20 [facility] Laboratory - Hematology and Cell countsOrdered By: Hazel Denson on 12-20-2022 Erythrocyte distribution width (RBC) [Entitic vol] 49.9 fL 35.1-43.9 [facility] Erythrocyte distribution width (RBC) [Ratio] 13.7 % 11.6-14.6 [facility] Immature granulocytes/100 WBC (Bld) 0.300 % 0.0-0.9 [facility] Comment on above: IG% - Immature Granu locytes (promyelocytes, myelocytes and metamyelocytes) > 1% indicates that a LEFT SHIFT is Present. MCH (RBC) [Entitic mass] 31.3 pg 27.0-32.0 [facility] Nucleated RBC/100 WBC (Bld) [Ratio] 0 % 0-5 [facility] MCHC Auto (RBC) [Mass/Vol]Or dered By: Hazel Denson on 12-20-2022 MCHC (RBC) [Mass/Vol] 31.1 g/dL 32-36 [facility] No Panel InformationOrdered By: Hazel Denson on 12-20-2022 Estimated GFR (MDRD) Amer 85 mL/min >60 [facility] Comment on above: GFR Calc Estimated GFR (MDRD) Non-Af Amer 70 mL/min >60 [facility] Comment on above: Non- GFR Calc Platelets bldOrdered By: Shen Denson on 12-20-2022 Platelets (Bld) [#/Vol] 273 10*3/uL 150-450 [facility] Serum or plasma calcium ollie urement (mass/volume)Ordered By: Hazel Denson on 12-20-2022 Calcium [Mass/Vol] 9.0 mg/dL 8.5-10.1 [facility] Serum or plasma creatinine m easurement (mass/volume)Ordered By: Hazel Denson on 12-20-2022 Creatinine [Mass/Vol] 0.84 mg/dL 0.55-1.02 [facility] Comment on above: The validity of the calculated GFR & GFRAA in patients over 70 years has not been determined. Clinical correlation is essential. Serum or plasma urea nitroge n measurement (mass/volume)Ordered By: Hazel Denson on 12-20-2022 Urea nitrogen [Mass/Vol] 13 mg/dL 7-18 [facility] Thin prep Papanicolaou smear with manual screeningOrdered By: Hazel Denson on 12-20-2022 Thin prep Papanicolaou smear with manual screening 6 5-15 [facility] Absolute lymphocyte countOrd ered By: Rachna Acosta on 10-29-2022 Lymphocytes Auto (Unsp spec) [#/Vol] 0.48 10*3/uL 0.83-4.51 [facility] Basophil percentageOrdered B y: Rachna Acosta on 10-29-2022 Basophils/100 WBC (Bld) 0.2 % 0-1 [facility] Bilirubin [Mass/Vol] 0.70 mg/dL 0.20-1.00 [facility] Comment on above: For patients on eltr ombopag therapy, use of Dimension [place] TBIL is not recommended. Chloride [Moles/Vol] 96 mmol/L 98-107 [facility] Eosinophils/100 WBC (Bld) 0.0 % 0-5 [facility] Glucose [Mass/Vol] 116 mg/dL 74-106 [facility] Comment on above: Fasting Glucose resu lt from 100 to 125 mg/dL suggests IMPAIRED HOMEOSTASIS per A.D.A. criteria. Neutrophils (Bld) [#/Vol] 9.5 10*3/uL 2.0-7.7 [facility] Neutrophils/100 WBC (Bld) 91.2 % 47-70 [facility] Potassium [Moles/Vol] 3.5 mmol/L 3.5-5.1 [facility] Protein [Mass/Vol] 7.5 g/dL 6.4-8.2 [facility] Sodium [Moles/Vol] 134 mmol/L 136-145 [facility] WBC (Bld) [#/Vol] 10.4 10*3/uL 4.4-11.[address] [facility] Blood erythrocytes count (nu mber/volume)Ordered By: Rachna Acosta on 10-29-2022 RBC (Bld) [#/Vol] 4.76 10*6/uL 4.2-5.[address] [facility] Blood hemoglobin measurement (mass/volume)Ordered By: Rachna Acosta on 10-29-2022 Hemoglobin (Bld) [Mass/Vol] 15.6 g/dL 12.0-15.0 [facility] Blood lymphocytes/100 leukoc ytesOrdered By: Rachna Acosta on 10-29-2022 Lymphocytes/100 WBC (Bld) 4.6 % 19-41 [facility] Blood manual differential co mment interpretation (narrative result)Ordered By: Rachna Acosta on 10-29-2022 Manual differential comment Narendra (Bld) [Interp] SCANNED [facility] Blood monocytes/100 leukocyt esOrdered By: Rachna Acosta on 10-29-2022 Monocytes/100 WBC (Bld) 3.5 % 0-10 [facility] Blood platelet mean volumeOr dered By: Rachna Acosta on 10-29-2022 Platelet mean volume (Bld) [Entitic vol] 12.2 fL 6.2-12.0 [facility] Determination of erythrocyte mean corpuscular volume (MCV)Ordered By: Rachna Acosta on 10-29-2022 MCV (RBC) [Entitic vol] 100.4 fL 81-99 [facility] Hematocrit Auto (Bld) [Volum e fraction]Ordered By: Rachna Acosta on 10-29-2022 Hematocrit (Bld) [Volume fraction] 47.8 % 37-47 [facility] Laboratory - Chemistry and C hemistry - challengeOrdered By: Rachna Acosta on 10-29-2022 ALP [Catalytic activity/Vol] 127 U/L 45-117 [facility] ALT [Catalytic activity/Vol] 72 U/L 13-56 [facility] CO2 [Moles/Vol] 27.0 mmol/L 21.0-32.0 [facility] Free T4 [Mass/Vol] 1.30 ng/dL 0.76-1.46 [facility] Globulin (S) [Mass/Vol] 3.7 g/dL 2.2-4.2 [facility] Magnesium [Mass/Vol] 2.4 mg/dL 1.6-2.6 [facility] Urea nitrogen/Creatinine [Mass ratio] 20.6 mg/mg 10-20 [facility] - Hematology and Cell countsOrdered By: Rachna Acosta on 10-29-2022 Erythrocyte distribution width (RBC) [Entitic vol] 47.5 fL 35.1-43.9 [facility] Erythrocyte distribution width (RBC) [Ratio] 12.7 % 11.6-14.6 [facility] Immature granulocytes/100 WBC (Bld) 0.500 % 0.0-0.9 [facility] Comment on above: IG% - Immature Granu locytes (promyelocytes, myelocytes and metamyelocytes) > 1% indicates that a LEFT SHIFT is Present. MCH (RBC) [Entitic mass] 32.8 pg 27.0-32.0 [facility] Nucleated RBC/100 WBC (Bld) [Ratio] 0.2 % 0-5 [facility] MCHC Auto (RBC) [Mass/Vol]Or dered By: Rachna Acosta on 10-29-2022 MCHC (RBC) [Mass/Vol] 32.6 g/dL 32-36 [facility] No Panel InformationOrdered By: Rachna Acosta on 10-29-2022 Estimated GFR (MDRD) Amer 87 mL/min >60 [facility] Comment on above: GFR Calc Estimated GFR (MDRD) Non-Af Amer 72 mL/min >60 [facility] Comment on above: Non- GFR Calc Free Triiodothyronine (T3) pg/dL 1.6 pg/mL 2.18-3.98 [facility] Thyroid Stimulating Hormone (TSH) 2.02 uIU/mL 0.358-3.74 [facility] Troponin I High Sensitivity 21 pg/mL 3.0-54.0 [facility] Comment on above: Please Note: New Vicky t Units and Gender Specific Reference Ranges. For more information see Policy Stat Procedure [place] High Sensitivity Troponin (TNIH) and attachments. Platelets bldOrdered By: Ashley Acosta on 10-29-2022 Platelets (Bld) [#/Vol] 301 10*3/uL 150-450 [facility] Serum or plasma albumin ollie urement (mass/volume)Ordered By: Rachna Acosta on 10-29-2022 Albumin [Mass/Vol] 3.8 g/dL 3.2-5.0 [facility] Serum or plasma albumin/glob ulin mass ratioOrdered By: Rachna Acosta on 10-29-2022 Albumin/Globulin [Mass ratio] 1.0 {ratio} 0.9-2.4 [facility] Serum or plasma calcium ollie urement (mass/volume)Ordered By: Rachna Acosta on 10-29-2022 Calcium [Mass/Vol] 9.5 mg/dL 8.5-10.1 [facility] Serum or plasma creatinine m easurement (mass/volume)Ordered By: Rachna Acosta on 10-29-2022 Creatinine [Mass/Vol] 0.82 mg/dL 0.55-1.02 [facility] Comment on above: The validity of the calculated GFR & GFRAA in patients over 70 years has not been determined. Clinical correlation is essential. Serum or plasma urea nitroge n measurement (mass/volume)Ordered By: Rachna Acosta on 10-29-2022 Urea nitrogen [Mass/Vol] 17 mg/dL 7-18 [facility] Thin prep Papanicolaou smear with manual screeningOrdered By: Rachna Acosta on 10-29-2022 Thin prep Papanicolaou smear with manual screening 53 U/L 15-37 [facility] Thin prep Papanicolaou smear with manual screening 11 5-15 [facility] Absolute lymphocyte countOrd ered By: Diandra Zuniga on 10-24-2022 Lymphocytes Auto (Unsp spec) [#/Vol] 0.99 10*3/uL 0.83-4.51 [facility] Basophil percentageOrdered B y: Diandra Zuniga on 10-24-2022 Basophils/100 WBC (Bld) 0.8 % 0-1 [facility] Bilirubin [Mass/Vol] 0.80 mg/dL 0.20-1.00 [facility] Comment on above: For patients on eltr ombopag therapy, use of Dimension [place] TBIL is not recommended. Chloride [Moles/Vol] 94 mmol/L 98-107 [facility] Eosinophils/100 WBC (Bld) 1.0 % 0-5 [facility] Glucose [Mass/Vol] 123 mg/dL 74-106 [facility] Comment on above: Fasting Glucose resu lt from 100 to 125 mg/dL suggests IMPAIRED HOMEOSTASIS per A.D.A. criteria. Neutrophils (Bld) [#/Vol] 5.7 10*3/uL 2.0-7.7 [facility] Neutrophils/100 WBC (Bld) 78.1 % 47-70 [facility] Potassium [Moles/Vol] 3.5 mmol/L 3.5-5.1 [facility] Protein [Mass/Vol] 7.7 g/dL 6.4-8.2 [facility] Sodium [Moles/Vol] 129 mmol/L 136-145 [facility] WBC (Bld) [#/Vol] 7.3 10*3/uL 4.4-11.0 [facility] Blood erythrocytes count (nu mber/volume)Ordered By: Diandra Zuniga on 10-24-2022 RBC (Bld) [#/Vol] 4.55 10*6/uL 4.2-5.[address] [facility] Blood hemoglobin measurement (mass/volume)Ordered By: Diandra Zuniga on 10-24-2022 Hemoglobin (Bld) [Mass/Vol] 15.0 g/dL 12.0-15.0 [facility] Blood lymphocytes/100 leukoc ytesOrdered By: Diandra Zuniga on 10-24-2022 Lymphocytes/100 WBC (Bld) 13.6 % 19-41 [facility] Blood manual differential co mment interpretation (narrative result)Ordered By: Diandra Zuniga on 10-24-2022 Manual differential comment Narendra (Bld) [Interp] SCANNED [facility] Blood monocytes/100 leukocyt esOrdered By: Diandra Zuniga on 10-24-2022 Monocytes/100 WBC (Bld) 6.1 % 0-10 [facility] Blood platelet mean volumeOr dered By: Diandra Zuniga on 10-24-2022 Platelet mean volume (Bld) [Entitic vol] 12.3 fL 6.2-12.0 [facility] Determination of erythrocyte mean corpuscular volume (MCV)Ordered By: Diandra Zuniga on 10-24-2022 MCV (RBC) [Entitic vol] 99.8 fL 81-99 [facility] Erythrocyte sedimentation ra teOrdered By: Diandra Zuniga on 10-24-2022 ESR (Bld) [Velocity] 26 mm/h 0-30 [facility] Hematocrit Auto (Bld) [Volum e fraction]Ordered By: Diandra Zuniga on 10-24-2022 Hematocrit (Bld) [Volume fraction] 45.4 % 37-47 [facility] Laboratory - Chemistry and C hemistry - challengeOrdered By: Diandra Zuniga on 10-24-2022 ALP [Catalytic activity/Vol] 158 U/L 45-117 [facility] ALT [Catalytic activity/Vol] 34 U/L 13-56 [facility] CO2 [Moles/Vol] 25.0 mmol/L 21.0-32.0 [facility] Globulin (S) [Mass/Vol] 3.9 g/dL 2.2-4.2 [facility] Magnesium [Mass/Vol] 1.9 mg/dL 1.6-2.6 [facility] Natriuretic peptide B (Bld) [Mass/Vol] 602.2 pg/mL 0-100 [facility] Urea nitrogen/Creatinine [Mass ratio] 11.0 mg/mg 10-20 [facility] Laboratory - Hematology and Cell countsOrdered By: Diandra Zuniga on 10-24-2022 Erythrocyte distribution width (RBC) [Entitic vol] 46.3 fL 35.1-43.9 [facility] Erythrocyte distribution width (RBC) [Ratio] 12.5 % 11.6-14.6 [facility] Immature granulocytes/100 WBC (Bld) 0.400 % 0.0-0.9 [facility] Comment on above: IG% - Immature Granu locytes (promyelocytes, myelocytes and metamyelocytes) > 1% indicates that a LEFT SHIFT is Present. MCH (RBC) [Entitic mass] 33.0 pg 27.0-32.0 [facility] Nucleated RBC/100 WBC (Bld) [Ratio] 0 % 0-5 [facility] MCHC Auto (RBC) [Mass/Vol]Or dered By: Diandra Zuniga on 10-24-2022 MCHC (RBC) [Mass/Vol] 33.0 g/dL 32-36 [facility] No Panel InformationOrdered By: Diandra Zuinga on 10-24-2022 Estimated GFR (MDRD) Amer 116 mL/min >60 [facility] Comment on above: GFR Calc Estimated GFR (MDRD) Non-Af Amer 96 mL/min >60 [facility] Comment on above: Non- GFR Calc Platelets bldOrdered By: Toshia Zuniga on 10-24-2022 Platelets (Bld) [#/Vol] 308 10*3/uL 150-450 [facility] Serum or plasma C reactive p rotein measurement (mass/volume)Ordered By: Diandra Zuniga on 10-24-2022 CRP [Mass/Vol] 13.70 mg/L 0.0-3.0 [facility] Comment on above: C-Reactive Protein ( CRP) provides useful information for thediagnosis, therapy and monitoring of inflammatory processesand associated diseases. For the evaluation of Relative Riskfor Cardiovascular Disease, a High Sensitivity CRP (HSCRP)should be ordered. Serum or plasma albumin ollie urement (mass/volume)Ordered By: Diandra Zuniga on 10-24-2022 Albumin [Mass/Vol] 3.8 g/dL 3.2-5.0 [facility] Serum or plasma albumin/glob ulin mass ratioOrdered By: Diandra Zuniga on 10-24-2022 Albumin/Globulin [Mass ratio] 1.0 {ratio} 0.9-2.4 [facility] Serum or plasma calcium ollie urement (mass/volume)Ordered By: Diandra Zuniga on 10-24-2022 Calcium [Mass/Vol] 9.3 mg/dL 8.5-10.1 [facility] Serum or plasma creatinine m easurement (mass/volume)Ordered By: Diandra Zuniga on 10-24-2022 Creatinine [Mass/Vol] 0.64 mg/dL 0.55-1.02 [facility] Comment on above: The validity of the calculated GFR & GFRAA in patients over 70 years has not been determined. Clinical correlation is essential. Serum or plasma urea nitroge n measurement (mass/volume)Ordered By: Diandra Zuniga on 10-24-2022 Urea nitrogen [Mass/Vol] 7 mg/dL 7-18 [facility] Thin prep Papanicolaou smear with manual screeningOrdered By: Diandraezekiel Zuniga on 10-24-2022 Thin prep Papanicolaou smear with manual screening 33 U/L 1537 [facility] Thin prep Papanicolaou smear with manual screening 10 5-15 [facility] Absolute lymphocyte counton 12-04-2021 Lymphocytes Auto (Unsp spec) [#/Vol] 1.22 10*3/uL 0.83-4.51 [facility] Work Phone: Basophil percentageon 2021 Basophils/100 WBC (Bld) 2.3 % 0-1 [facility] Work Phone: Bilirubin [Mass/Vol] 0.50 mg/dL 0.20-1.00 [facility] Work Phone: Comment on above: For patients on eltr ombopag therapy, use of Dimension [place] TBIL is not recommended. Chloride [Moles/Vol] 105 mmol/L 98-107 [facility] Work Phone: Cholesterol [Mass/Vol] 219 mg/dL <[address] [facility] Work Phone: Comment on above: <200 mg/dL Desirable 200-240 mg/dL Borderline >240 mg/dL High Risk Eosinophils/100 WBC (Bld) 4.4 % 0-5 [facility] Work Phone: Glucose [Mass/Vol] 95 mg/dL 74-106 [facility] Work Phone: Neutrophils (Bld) [#/Vol] 2.0 10*3/uL 2.0-7.7 [facility] Work Phone: Neutrophils/100 WBC (Bld) 51.2 % 47-70 [facility] Work Phone: [phone] Potassium [Moles/Vol] 4.9 mmol/L 3.5-5.1 [facility] Work Phone: [phone] Comment on above: Slight Hemolysis, Re sult may be falsely increased. Protein [Mass/Vol] 7.2 g/dL 6.4-8.2 [facility] Work Phone: Sodium [Moles/Vol] 140 mmol/L 136-145 [facility] Work Phone: [phone] Triglyceride [Mass/Vol] 84 mg/dL <199 [facility] Work Phone: [phone] Comment on above: The drugs N-Acetylcy steine and Metamizole may falsely depress this assay.Serum Triglycerides Reference Interval Normal <150 mg/dL Borderline high 150 - 199 mg/dL High 200 - 499 mg/dL Very High > or = 500 mg/dL WBC (Bld) [#/Vol] 3.9 10*3/uL 4.4-11.0 [facility] Work Phone: Blood erythrocytes count (nu mber/volume)on 12-04-2021 RBC (Bld) [#/Vol] 4.35 10*6/uL 4.2-5.[address] [facility] Work Phone: Blood hemoglobin measurement (mass/volume)on 12-04-2021 Hemoglobin (Bld) [Mass/Vol] 14.7 g/dL 12.0-15.0 [facility] Work Phone: Blood lymphocytes/100 leukoc yteson 12-04-2021 Lymphocytes/100 WBC (Bld) 31.5 % 19-41 [facility] Work Phone: Blood monocytes/100 leukocyt eson 12-04-2021 Monocytes/100 WBC (Bld) 10.3 % 0-10 [facility] Work Phone: [phone] Blood platelet mean volumeon 12-04-2021 Platelet mean volume (Bld) [Entitic vol] 11.5 fL 6.2-12.0 [facility] Work Phone: [phone] Determination of erythrocyte mean corpuscular volume (MCV)on 12-04-2021 MCV (RBC) [Entitic vol] 104.6 fL 81-99 [facility] Work Phone: [phone] Hematocrit Auto (Bld) [Volum e fraction]on 12-04-2021 Hematocrit (Bld) [Volume fraction] 45.5 % 37-47 [facility] Work Phone: [phone] Laboratory - Chemistry and C hemistry - challengeon 12-04-2021 ALP [Catalytic activity/Vol] 138 U/L 45-117 [facility] Work Phone: [phone] ALT [Catalytic activity/Vol] 25 U/L 13-56 [facility] Work Phone: [phone] CO2 [Moles/Vol] 24.0 mmol/L 21.0-32.0 [facility] Work Phone: [phone] Globulin (S) [Mass/Vol] 3.6 g/dL 2.2-4.2 [facility] Work Phone: [phone] Urea nitrogen/Creatinine [Mass ratio] 13.9 mg/mg 10-20 [facility] Work Phone: [phone] Laboratory - Hematology and Cell countson 12-04-2021 Erythrocyte distribution width (RBC) [Entitic vol] 52.7 fL 35.1-43.9 [facility] Work Phone: [phone] Erythrocyte distribution width (RBC) [Ratio] 13.6 % 11.6-14.6 [facility] Work Phone: [phone] Immature granulocytes/100 WBC (Bld) 0.300 % 0.0-0.9 [facility] Work Phone: [phone] Comment on above: IG% - Immature Granu locytes (promyelocytes, myelocytes and metamyelocytes) > 1% indicates that a LEFT SHIFT is Present. MCH (RBC) [Entitic mass] 33.8 pg 27.0-32.0 [facility] Work Phone: Nucleated RBC/100 WBC (Bld) [Ratio] 0 % 0-5 [facility] Work Phone: [phone] MCHC Auto (RBC) [Mass/Vol]on 12-04-2021 MCHC (RBC) [Mass/Vol] 32.3 g/dL 32-36 [facility] Work Phone: No Panel Informationon 12-04 Estimated GFR (MDRD) Amer 101 mL/min >60 [facility] Work Phone: Comment on above: GFR Calc Estimated GFR (MDRD) Non-Af Amer 84 mL/min >60 [facility] Work Phone: Comment on above: Non- GFR Calc Platelets bldon 12-04-2021 Platelets (Bld) [#/Vol] 435 10*3/uL 150-450 [facility] Work Phone: [phone] Serum or plasma albumin ollie urement (mass/volume)on 12-04-2021 Albumin [Mass/Vol] 3.6 g/dL 3.2-5.0 [facility] Work Phone: Serum or plasma albumin/glob ulin mass ratioon 12-04-2021 Albumin/Globulin [Mass ratio] 1.0 {ratio} 0.9-2.4 [facility] Work Phone: [phone] Serum or plasma calcium ollie urement (mass/volume)on 12-04-2021 Calcium [Mass/Vol] 9.2 mg/dL 8.5-10.1 [facility] Work Phone: [phone] Serum or plasma cholesterol in HDL measurement (mass/volume)on 12-04-2021 Cholesterol in HDL [Mass/Vol] 96 mg/dL >40 [facility] Work Phone: Comment on above: The drugs N-Acetylcy steine and Metamizole may falsely depress this assay. Reference Range HDL <40 mg/dL Low HDL Cholesterol HDL >or= 60 mg/dL High HDL Cholesterol Serum or plasma cholesterol in VLDL measurement (mass/volume)on 12-04-2021 Cholesterol in VLDL [Mass/Vol] 17 mg/dL 5-40 [facility] Work Phone: Serum or plasma creatinine m easurement (mass/volume)on 12-04-2021 Creatinine [Mass/Vol] 0.72 mg/dL 0.55-1.02 [facility] Work Phone: Comment on above: The validity of the calculated GFR & GFRAA in patients over 70 years has not been determined. Clinical correlation is essential. Serum or plasma low density lipoprotein (LDL) cholesterol measurement (mass/volume)on 12-04-2021 Cholesterol in LDL [Mass/Vol] 106 mg/dL 0-130 [facility] Work Phone: Serum or plasma urea nitroge n measurement (mass/volume)on 12-04-2021 Urea nitrogen [Mass/Vol] 10 mg/dL 7-18 [facility] Work Phone: Thin prep Papanicolaou smear with manual screeningon 12-04-2021 Thin prep Papanicolaou smear with manual screening 29 U/L 15-37 [facility] Work Phone: Comment on above: Slight Hemolysis, Re sult may be falsely increased. Thin prep Papanicolaou smear with manual screening 11 5-15 [facility] Work Phone: ALANNAH SCREENING W [facility] 09-29 [facility] PROGRESSon 08-11-2019 PROGRESS HNO ID: [id number] Author: Vanessa Chaidez [facility] Service: ? Author Type: Physician [...] She did well until diagnostic mammogram in [facility] showed a new left 1.5 cm mass; [...] breast cancer, ELBA; DCIS ? ? Normal [facility] ([facility] CRISELDA STORM ([id number]) 1945 F Date Time Provider Department 02/06/19 [...] She did well until diagnostic mammogram in [facility] showed a new left 1.5 cm mass; [...] Status:Closed by VANESSA CHAMPAGNE MD on 02/06/19 [facility] PROGRESSon 02-06-2019 PROGRESS HNO ID: [id number] Author: Vanessa Champagne Service: ? Author Type: [...] She did well until diagnostic mammogram in [facility] showed a new left 1.5 cm mass; [...] history of right breast cancer, ELBA Normal [facility] Vital Signs Date Time Vital Sign Value Performing Clinician Facility 11-03-2024 09:02-0400 Body height 162.[address] Rachna Acosta DO Work Phone: [facility] 11-03-2024 09:02-0400 Body mass index (BMI) [Ratio] 19.6 kg/m2 Dr. Rachna Acosta DO Work Phone: [facility] 11-03-2024 09:02-0400 Body weight 52.[address] Rachna Acosta DO Work Phone: [facility] 11-03-2024 09:02-0400 Diastolic blood pressure 59 mm[Hg] Dr. Rachna Acosta DO Work Phone: [facility] 11-03-2024 09:02-0400 Heart rate 59 /min Dr. Rachna Acosta DO Work Phone: [facility] 11-03-2024 09:02-0400 Respiratory rate 16 /min Dr. Rachna Acosta DO Work Phone: [facility] 11-03-2024 09:02-0400 Systolic blood pressure 99 mm[Hg] Dr. Rachna Acosta DO Work Phone: [facility] 08-18-2024 09:29-0400 Body height 162.[address] Rachna Acosta DO Work Phone: [facility] 08-18-2024 09:29-0400 Body mass index (BMI) [Ratio] 19.6 kg/m2 Dr. Rachna Acosta DO Work Phone: [facility] 08-18-2024 09:29-0400 Body weight 52.[address] Rachna Acosta DO Work Phone: [facility] 08-18-2024 09:29-0400 Diastolic blood pressure 63 mm[Hg] Dr. Rachna Acosta DO Work Phone: [facility] 08-18-2024 09:29-0400 Heart rate 76 /min Dr. Rachna Acosta DO Work Phone: [facility] 08-18-2024 09:29-0400 Respiratory rate 16 /min Dr. Rachna Acosta DO Work Phone: [facility] 08-18-2024 09:29-0400 Systolic blood pressure 100 mm[Hg] Dr. Rachna Acosta DO Work Phone: [facility] 08-14-2024 08:49-0400 Diastolic blood pressure 69 mm[Hg] Dr. Rachna Acosta DO Work Phone: [facility] 08-14-2024 08:49-0400 Heart rate 80 /min Dr. Rachna Acosta DO Work Phone: [facility] 08-14-2024 08:49-0400 Respiratory rate 18 /min Dr. Rachna Acosta DO Work Phone: [facility] 08-14-2024 08:49-0400 Systolic blood pressure 126 mm[Hg] Dr. Rachna Acosta DO Work Phone: [facility] 07-16-2024 12:18-0400 Diastolic blood pressure 56 mm[Hg] Emeterio Malcolm DO Work Phone: [facility] 07-16-2024 12:18-0400 Systolic blood pressure 98 mm[Hg] Emeterio Malcolm DO Work Phone: [facility] 07-16-2024 12:13-0400 Body weight 51.26 kg Emeterio Malcolm DO Work Phone: [facility] 07-16-2024 12:13-0400 Heart rate 61 /min Emeterio Malcolm DO Work Phone: [facility] 06-03-2024 09:08-0400 Diastolic blood pressure 64 mm[Hg] Dr. Rachna Acosta DO Work Phone: [facility] 06-03-2024 09:08-0400 Heart rate 84 /min Dr. Rachna Acosta DO Work Phone: [facility] 06-03-2024 09:08-0400 Respiratory rate 18 /min Dr. Rachna Acosta DO Work Phone: [facility] 06-03-2024 09:08-0400 Systolic blood pressure 115 mm[Hg] Dr. Rachna Acosta DO Work Phone: [facility] 06-03-2024 08:42-0400 Body temperature 97.5 [degF] Dr. Rachna Acosta DO Work Phone: [facility] 05-31-2024 18:57-0400 Body temperature 98.2 [degF] Dr. Rachna Acosta DO Work Phone: [facility] 05-31-2024 18:57-0400 Diastolic blood pressure 75 mm[Hg] Dr. Rachna Acosta DO Work Phone: [facility] 05-31-2024 18:57-0400 Heart rate 77 /min Dr. Rachna Acosta DO Work Phone: [facility] 05-31-2024 18:57-0400 Respiratory rate 18 /min Dr. Rachna Acosta DO Work Phone: [facility] 05-31-2024 18:57-0400 SaO2% (BldA) [Mass fraction] 92 % Dr. Rachna Acosta DO Work Phone: [facility] 05-31-2024 18:57-0400 Systolic blood pressure 123 mm[Hg] Dr. Rachna Acosta DO Work Phone: [facility] 05-31-2024 16:16-0400 Body height 162.[address] Rachna Acosta DO Work Phone: [facility] 05-31-2024 16:16-0400 Body mass index (BMI) [Ratio] 20.9 kg/m2 Dr. Rachna Acosta DO Work Phone: [facility] 05-31-2024 16:16-0400 Body weight 55.[address] Rachna Acosta DO Work Phone: [facility] 03-06-2024 08:32-0500 Body mass index (BMI) [Ratio] 19.7 kg/m2 Dr. Rachna Acosta DO Work Phone: [facility] 03-06-2024 08:32-0500 Body weight 52.[address] Rachna Acosta DO Work Phone: [facility] 03-06-2024 08:32-0500 Diastolic blood pressure 63 mm[Hg] Dr. Rachna Acosta DO Work Phone: [facility] 03-06-2024 08:32-0500 Heart rate 68 /min Dr. Rachna Acosta DO Work Phone: [facility] 03-06-2024 08:32-0500 Respiratory rate 18 /min Dr. Rachna Acosta DO Work Phone: [facility] 03-06-2024 08:32-0500 SaO2% (BldA) [Mass fraction] 96 % Dr. Rachna Acosta DO Work Phone: [facility] 03-06-2024 08:32-0500 Systolic blood pressure 105 mm[Hg] Dr. Rachna Acosta DO Work Phone: [facility] 10-03-2023 11:58-0400 Body height 165.1 cm Luis F Lawrence RETAIL DIRECTOR.RESEARCH DIRECTOR Work Phone: [facility] 10-03-2023 11:58-0400 Body mass index (BMI) [Ratio] 18.8 kg/m2 Luis F Lawrence RETAIL DIRECTOR.RESEARCH DIRECTOR Work Phone: [facility] 10-03-2023 11:58-0400 Body weight 51.26 kg Luis F Lawrence RETAIL DIRECTOR.RESEARCH DIRECTOR Work Phone: [facility] 10-03-2023 11:58-0400 Diastolic blood pressure 52 mm[Hg] Luis F Lawrence RETAIL DIRECTOR.RESEARCH DIRECTOR Work Phone: [facility] 10-03-2023 11:58-0400 Heart rate 58 /min Luis F Lawrence RETAIL DIRECTOR.RESEARCH DIRECTOR Work Phone: [facility] 10-03-2023 11:58-0400 Systolic blood pressure 98 mm[Hg] Luis F Lawrence RETAIL DIRECTOR.RESEARCH DIRECTOR Work Phone: [facility] 06-26-2023 15:49-0400 Body height 161.3 cm Tisha Van RETAIL DIRECTOR.RESEARCH DIRECTOR Work Phone: [facility] 06-26-2023 15:49-0400 Body mass index (BMI) [Ratio] 21.8 kg/m2 Tisha Van RETAIL DIRECTOR.RESEARCH DIRECTOR Work Phone: [facility] 06-26-2023 15:49-0400 Body weight 56.7 kg Tisha Van RETAIL DIRECTOR.RESEARCH DIRECTOR Work Phone: [facility] 06-26-2023 15:49-0400 Diastolic blood pressure 68 mm[Hg] Tisha Van RETAIL DIRECTOR.RESEARCH DIRECTOR Work Phone: [facility] 06-26-2023 15:49-0400 Heart rate 60 /min Tisha Van RETAIL DIRECTOR.RESEARCH DIRECTOR Work Phone: [facility] 06-26-2023 15:49-0400 Systolic blood pressure 130 mm[Hg] Tisha Van RETAIL DIRECTOR.RESEARCH DIRECTOR Work Phone: [facility] 04-09-2023 10:22-0500 Body height 163.8 cm Bear Rodarte MD Work Phone: [facility] 04-09-2023 10:22-0500 Body weight 61.24 kg Bear Rodarte MD Work Phone: [facility] 04-09-2023 10:22-0500 Diastolic blood pressure 62 mm[Hg] Bear Rodarte MD Work Phone: [facility] 04-09-2023 10:22-0500 Heart rate 50 /min Bear Rodarte MD Work Phone: [facility] 04-09-2023 10:22-0500 Systolic blood pressure 100 mm[Hg] Bear Rodarte MD Work Phone: [facility] 03-01-2023 12:49-0500 Body height 162.[address] Rachna Acosta Work Phone: [facility] 03-01-2023 12:49-0500 Body mass index (BMI) [Ratio] 22.6 kg/m2 Dr. Rachna Acosta Work Phone: [facility] 03-01-2023 12:49-0500 Body weight 59.[address] Rachna Acosta Work Phone: [facility] 03-01-2023 12:49-0500 Diastolic blood pressure 79 mm[Hg] Dr. Rachna Acosta Work Phone: [facility] 03-01-2023 12:49-0500 Heart rate 99 /min Dr. Rachna Acosta Work Phone: [facility] 03-01-2023 12:49-0500 Respiratory rate 18 /min Dr. Rachna Acosta Work Phone: [facility] 03-01-2023 12:49-0500 SaO2% (BldA) [Mass fraction] 98 % Dr. Rachna Acosta Work Phone: [facility] 03-01-2023 12:49-0500 Systolic blood pressure 116 mm[Hg] Dr. Rachna Acosta Work Phone: [facility] 02-21-2023 11:21-0500 Body height 162.[address] Rachna Acosta Work Phone: [facility] 02-21-2023 11:21-0500 Body weight 60.[address] Rachna Acosta Work Phone: [facility] 02-20-2023 09:57-0500 Body mass index (BMI) [Ratio] 22.8 kg/m2 Dr. Rachna Acosta Work Phone: [facility] 01-15-2023 07:29-0500 Body height 162.[address] Rachna Acosta Work Phone: [facility] 01-15-2023 07:29-0500 Body weight 58.[address] Rachna Acosta Work Phone: [facility] 01-14-2023 08:38-0500 Body mass index (BMI) [Ratio] 22.1 kg/m2 Dr. Rachna Acosta Work Phone: [facility] 12-26-2022 12:22-0500 Body temperature 97 [degF] Dr. Rachna Acosta Work Phone: [facility] 12-26-2022 12:22-0500 Diastolic blood pressure 88 mm[Hg] Dr. Rachna Acosta Work Phone: [facility] 12-26-2022 12:22-0500 Heart rate 83 /min Dr. Rachna Acosta Work Phone: [facility] 12-26-2022 12:22-0500 Respiratory rate 18 /min Dr. Rachna Acosta Work Phone: [facility] 12-26-2022 12:22-0500 SaO2% (BldA) [Mass fraction] 99 % Dr. Rachna Acosta Work Phone: [facility] 12-26-2022 12:22-0500 Systolic blood pressure 143 mm[Hg] Dr. Rachna Acosta Work Phone: [facility] 12-20-2022 11:43-0400 Body height 162.[address] Rachna Acosta Work Phone: [facility] 12-20-2022 11:34-0400 Body mass index (BMI) [Ratio] 22.1 kg/m2 Dr. Rachna Acosta Work Phone: [facility] 12-20-2022 11:34-0400 Body weight 58.[address] Rachna Acosta Work Phone: [facility] 12-20-2022 11:34-0400 Diastolic blood pressure 84 mm[Hg] Dr. Rachna Acosta Work Phone: [facility] 12-20-2022 11:34-0400 Heart rate 114 /min Dr. Rachna Acosta Work Phone: [facility] 12-20-2022 11:34-0400 Respiratory rate 18 /min Dr. Rachna Acosta Work Phone: [facility] 12-20-2022 11:34-0400 Systolic blood pressure 117 mm[Hg] Dr. Rachna Acosta Work Phone: [facility] 11-27-2022 07:48-0400 Body weight 60.[address] Rachna Acosta Work Phone: [facility] 11-26-2022 08:06-0400 Body mass index (BMI) [Ratio] 22.8 kg/m2 Dr. Rachna Acosta Work Phone: [facility] 11-22-2022 13:12-0400 Body mass index (BMI) [Ratio] 22.8 kg/m2 Dr. Rachna Acosta Work Phone: [facility] 11-22-2022 13:12-0400 Body weight 60.[address] Rachna Acosta Work Phone: [facility] 11-22-2022 13:12-0400 Diastolic blood pressure 73 mm[Hg] Dr. Rachna Acosta Work Phone: [facility] 11-22-2022 13:12-0400 Heart rate 102 /min Dr. Rachna Acosta Work Phone: [facility] 11-22-2022 13:12-0400 Respiratory rate 18 /min Dr. Rachna Acosta Work Phone: [facility] 11-22-2022 13:12-0400 SaO2% (BldA) [Mass fraction] 96 % Dr. Rachna Acosta Work Phone: [facility] 11-22-2022 13:12-0400 Systolic blood pressure 107 mm[Hg] Dr. Rachna Acosta Work Phone: [facility] 11-02-2022 10:04-0400 Body height 162.[address] Rachna Acosta Work Phone: [facility] 11-02-2022 10:04-0400 Body mass index (BMI) [Ratio] 23.5 kg/m2 Dr. Rachna Acosta Work Phone: [facility] 11-02-2022 10:04-0400 Body weight 62.[address] Rachna Acosta Work Phone: [facility] 11-02-2022 10:04-0400 Diastolic blood pressure 89 mm[Hg] Dr. Rachna Acosta Work Phone: [facility] 11-02-2022 10:04-0400 Heart rate 148 /min Dr. Rachna Acosta Work Phone: [facility] 11-02-2022 10:04-0400 Respiratory rate 20 /min Dr. Rachna Acosta Work Phone: [facility] 11-02-2022 10:04-0400 Systolic blood pressure 114 mm[Hg] Dr. Rachna Acosta Work Phone: [facility] 06-19-2022 13:54-0400 Body height 165.1 cm Abhishek Andrews MD Work Phone: [facility] 06-19-2022 13:54-0400 Body mass index (BMI) [Ratio] 23.7 kg/m2 Abhishek Andrews MD Work Phone: [facility] 06-19-2022 13:54-0400 Body temperature 98.01 [degF] Abhishek Andrews MD Work Phone: [facility] 06-19-2022 13:54-0400 Body weight 64.59 kg Abhishek Andrews MD Work Phone: [facility] Encounters Encounter Date Encounter Type Care Provider Facility Start: 12-25-2024 End: 12-25-2024 ambulatory Rachna Acosta Facility:[facility] Start: 11-03-2024 End: 11-03-[address] Rachna Acosta DO Work Phone: -Radiology [facility] Start: 11-03-2024 End: 11-03-2024 Patient encounter procedure Cinthia Kim FINISHED [employer]-C -Radiology [facility] Work Phone: Start: 11-03-2024 End: 11-03-2024 Patient encounter procedure Cinthia Kim FINISHED [employer]-C -[facility] Work Phone: Start: 11-03-2024 End: 11-03-[address] Rachna Acosta DO Work Phone: -[facility] Start: 11-03-2024 End: 11-03-2024 ambulatory Cinthia Kim NP Facility:[facility] Start: 10-01-2024 End: 10-01-[address] Rachna Acosta DO Work Phone: -Laboratory Start: 10-01-2024 End: 10-01-2024 Patient encounter procedure Cinthia Huntley Julio [employer]ISHED [employer]-C -Laboratory Work Phone: Start: 10-01-2024 End: 10-01-2024 ambulatory Cinthia Kim [employer]ISHED [employer] Facility:[facility] Start: 09-01-2024 End: 09-01-[address] Rachna Acosta DO Work Phone: -Radiology [facility] Start: 09-01-2024 End: 09-01-2024 Patient encounter procedure Cinthia Huntley Julio FINISHED [employer]-C -Radiology [facility] Work Phone: Start: 09-01-2024 End: 09-01-2024 ambulatory Cinthia Kim FINISHED [employer] Facility:[facility] Start: 08-18-2024 End: 08-18-[address] Rachna Acosta DO Work Phone: -Radiology [facility] Start: 08-18-2024 End: 08-18-2024 Patient encounter procedure Cinthia Huntley Julio FINISHED [employer]-C -Radiology [facility] Work Phone: Start: 08-18-2024 End: 08-18-2024 Patient encounter procedure Cinthia Huntley Julio FINISHED [employer]-C -[facility] Work Phone: Start: 08-18-2024 End: 08-18-[address] Rachna Acosta DO Work Phone: -[facility] Start: 08-18-2024 End: 08-18-2024 ambulatory Cinthia Kim [employer]ISHED [employer] Facility:[facility] Start: 08-14-2024 End: 08-14-[address] Rachna Acosta DO Work Phone: -Ultrasound [facility] Start: 08-14-2024 End: 08-14-[address] Rachna Acosta DO Work Phone: -Ultrasound [facility] Work Phone: Start: 08-14-2024 End: 08-14-2024 ambulatory Rachna Acosta Facility:[facility] Start: 08-10-2024 ambulatory Rachna Acosta Facility:[facility] Start: 07-29-2024 End: 08-04-2024 Telephone encounter Emeterio Malcolm DO Work Phone: [facility] Thoracic [facility] - [place] Comment on above: Results Start: 07-22-2024 End: 07-22-2024 Subsequent hospital visit by physician Emeterio Malcolm DO Work Phone: [facility] Comment on above: Recurrent pleural ef fusion Start: 07-22-2024 End: 07-22-2024 ambulatory EMETERIO MALCOLM [facility] Start: 07-16-2024 End: 07-16-2024 Office consultation new/estab patient 60 min Emeterio Malcolm DO Work Phone: [facility] Thoracic [facility] [place] Comment on above: Pleural effusion on left (Primary Dx); Chronic combined systolic (congestive) and diastolic (congestive) heart failure (HCC); Atrial fibrillation, unspecified type (HCC) Start: 07-16-2024 End: 07-16-2024 ambulatory EMETERIO MALCOLM [facility] Start: 06-24-2024 End: 06-24-[address] Rachna Acosta DO Work Phone: [facility] Work Phone: Start: 06-24-2024 End: 06-24-[address] Rachna Acosta DO -Laboratory, [place] Work Phone: Start: 06-24-2024 End: 06-24-2024 ambulatory Rachna Acosta Facility:[facility] Start: 06-03-2024 ambulatory Amanda Green Facility: [facility] Start: 06-03-2024 Non-patient / Non-visit Amanda mcdowell NP-C -[facility] Start: 06-03-2024 End: 06-03-[address] Rachna Acosta DO -Ultrasound, [facility] Work Phone: Start: 06-03-2024 End: 06-03-2024 ambulatory Rachna Acosta Facility:[facility] Start: 05-31-2024 End: 05-31-2024 Emergency department patient visit Dr. Rachna Acosta DO Work Phone: -Emergency Department Work Phone: Start: 04-30-2024 End: 04-30-2024 ambulatory RACHNA ACOSTA Facility:[facility] Start: 04-30-2024 End: 04-30-2024 Subsequent hospital visit by physician Screen Mammo [facility] Start: 03-26-2024 End: 03-26-2024 Patient encounter procedure Faith DUMONT -[facility] Work Phone: Start: 03-26-2024 End: 03-26-2024 ambulatory Rachna Acosta Facility:[facility] Start: 03-23-2024 End: 03-23-2024 Patient encounter procedure Hazel DUMONT -Laboratory Work Phone: Start: 03-23-2024 End: 03-23-2024 ambulatory Rachna Acosta Facility:[facility] Start: 03-19-2024 ambulatory Marcelo Berry Facility:[facility] Start: 03-19-2024 Non-patient / Non-visit Dr. Justin COLLADO -[facility] Start: 03-19-2024 End: 03-19-2024 Patient encounter procedure Hazel DUMONT -[facility] Services Work Phone: Start: 03-19-2024 End: 03-19-2024 ambulatory Rachna Acosta Facility:[facility] Start: 03-17-2024 End: 03-17-[address] Rachna Acosta DO -Ultrasound, [facility] Work Phone: Start: 03-17-2024 End: 03-17-2024 ambulatory Rachna Acosta Facility:[facility] Start: 03-12-2024 ambulatory Rachna Acosta Facility:[facility] Start: 03-09-2024 End: 03-09-[address] Rachna Acosta DO -Cat Scan, [facility] Work Phone: Start: 03-09-2024 End: 03-09-2024 ambulatory Rachna Acosta Facility:[facility] Start: 03-06-2024 End: 03-06-2024 Patient encounter procedure Hazel Denson [place] -[facility] Work Phone: Start: 03-06-2024 End: 03-06-2024 ambulatory Rachna Acosta Facility:[facility] Start: 10-03-2023 End: 10-03-2023 Patient encounter procedure Luis F Lawrence RETAIL DIRECTOR.RESEARCH DIRECTOR Work Phone: Cardiology Comment on above: Typical atrial flutt er (HCC) (Primary Dx); Persistent atrial fibrillation (HCC); On apixaban therapy; Mixed hyperlipidemia Start: 10-03-2023 End: 10-04-2023 ambulatory LUIS F BRAVO Facility:[facility] Start: 09-16-2023 Patient encounter procedure Bear Rodarte MD Work Phone: [facility] Start: 09-16-2023 Recurring Plan Bear reddy MD Work Phone: [facility] Start: 09-06-2023 Patient encounter procedure Bear Rodarte MD Work Phone: [facility] Start: 09-06-2023 Recurring Plan Bear reddy MD Work Phone: [facility] Department Start: 09-03-2023 E-mail encounter fro m caregiver Tish Dougherty APRN.RESEARCH DIRECTOR Work Phone: [facility] Start: 09-03-2023 Follow-up encounter Tish Dougherty APRN.RESEARCH DIRECTOR Work Phone: [facility] Comment on above: [facility] Start: 08-29-2023 Patient encounter procedure Bear Rodarte MD Work Phone: [facility] Department Start: 08-29-2023 Recurring Plan Bear reddy MD Work Phone: [facility] Department Start: 08-20-2023 Patient encounter procedure Bear Rodarte MD Work Phone: [facility] Department Start: 08-20-2023 Recurring Plan Bear reddy MD Work Phone: [facility] Department Start: 08-16-2023 Patient encounter procedure Bear Rodarte MD Work Phone: [facility] Start: 08-16-2023 Recurring Plan Bear reddy MD Work Phone: [facility] Department Start: 08-07-2023 Patient encounter procedure Bear Rodarte MD Work Phone: [facility] Department Start: 08-07-2023 Recurring Plan Bear reddy MD Work Phone: [facility] Department Start: 08-02-2023 E-mail encounter fro m caregiver Tish Dougherty APRN.RESEARCH DIRECTOR Work Phone: [facility] Start: 08-02-2023 Follow-up encounter Tish Dougherty APRN.RESEARCH DIRECTOR Work Phone: [facility] Comment on above: Actionable Finding f ollow up Start: 08-02-2023 Patient encounter procedure Bear Rodarte MD Work Phone: [facility] Department Start: 08-02-2023 Recurring Plan Bear reddy MD Work Phone: [facility] Department Start: 07-26-2023 Patient encounter procedure Bear Rodarte MD Work Phone: [facility] Department Start: 07-26-2023 Recurring Plan Bear reddy MD Work Phone: [facility] Department Start: 07-25-2023 ambulatory Carole Kilgore [facility] Start: 07-17-2023 ambulatory Carole Kilgore [facility] Start: 07-17-2023 Patient encounter procedure Bear Rodarte MD Work Phone: [facility] Department Start: 07-17-2023 Recurring Plan Bear reddy MD Work Phone: [facility] Department Start: 07-10-2023 ambulatory Deisy Clemente APRN.RESEARCH DIRECTOR Work Phone: Pulmonary Medicine Comment on above: Lung Nodule Actionab le Findings Outreach Encounter Start: 07-10-2023 Patient encounter procedure Bear Rodarte MD Work Phone: [facility] Department Start: 07-10-2023 Recurring Plan Bear reddy MD Work Phone: [facility] Department Start: 07-05-2023 ambulatory Carole Kilgore [facility] Start: 07-04-2023 ambulatory Bear reddy MD Work Phone: Cardiology Comment on above: Transmitter (90 days ) Start: 07-04-2023 Telephone encounter Ani GANNON Comment on above: Follow Up Phone Call (Relate care discharge follow pw-[id number]-tqu clear) Start: 07-03-2023 End: 07-03-2023 ambulatory Evette Hall PA-C Work Phone: Pulmonary Medicine Start: 07-02-2023 ambulatory Bear reddy MD Work Phone: Cardiology Comment on above: Patient Education (E PS - PVI/ AFL RFA) Start: 06-26-2023 End: 06-26-2023 Patient encounter procedure Tisha Araujo APRN.RESEARCH DIRECTOR Work Phone: Cardiology Comment on above: Persistent atrial fi brillation (HCC) (Primary Dx); Nonischemic cardiomyopathy (HCC); On amiodarone therapy Start: 06-26-2023 End: 06-26-2023 Subsequent hospital visit by physician Callie Juarez (I-Stat) Work Phone: Radiology Comment on above: Atrial fibrillation, persistent (HCC) [I48.19] Start: 06-26-2023 End: 06-26-2023 ambulatory BEAR RODARTE Facility:[facility] Start: 06-12-2023 Telephone encounter Bear Rodarte MD Work Phone: Cardiology Comment on above: Procedure (EP: PVI/A FL RFA (offered sooner date)) Start: 05-29-2023 End: 05-29-2023 ambulatory RACHNA ACOSTA Facility:[facility] Start: 05-24-2023 Telephone encounter Bear Rodarte MD Work Phone: Cardiology Comment on above: Procedure (EP: PVI/A FL RFA) Start: 05-14-2023 ambulatory Bear reddy MD Work Phone: [facility] Start: 05-14-2023 Follow-up encounter Bear Rodarte MD Work Phone: Cardiology Comment on above: follow up Start: 05-02-2023 Telephone encounter Bear Rodarte MD Work Phone: Cardiology Start: 05-01-2023 ambulatory Bear reddy MD Work Phone: [facility] Start: 05-01-2023 Follow-up encounter Bear [...] procedure Dr. Rachna Acosta Work Phone: [facility] Work Phone: Start: 02-28-2023 End: 02-28-[address] Rachna Acosta Work Phone: [facility] Work Phone: Start: 02-28-2023 End: 02-28-[address] Rachna Acosta Work Phone: [facility] Work Phone: Start: 02-21-2023 Non-patient / Non-visit Dr. Michelle Acosta Work Phone: [facility] Start: 02-21-2023 End: 02-21-2023 Admission to same day surgery center Dr[facility] Work Phone: Start: 02-21-2023 End: 02-21-[address] Rachna Acosta Work Phone: [facility] Work Phone: Start: 02-14-2023 Non-patient / Non-visit Dr. Michelle Acosta Work Phone: [facility] Start: 01-15-2023 End: 01-15-2023 Admission to same day surgery center Dr. Rachna Acosta [facility] Work Phone: Start: 01-15-2023 End: 01-15-[address] Rachna Acosta Work Phone: [facility] Work Phone: Start: 12-26-2022 End: 12-26-2022 Emergency department patient visit Dr. Rachna Acosta Work Phone: [facility] Work Phone: Start: 12-20-2022 End: 12-20-[address] Rachna Acosta Work Phone: [facility] Work Phone: Start: 12-20-2022 End: 12-20-[address] Rachna Acosta Work Phone: [facility] Work Phone: Start: 12-03-2022 End: 12-03-[address] Rachna Acosta Work Phone: [facility] Work Phone: Start: 11-27-2022 Non-patient / Non-visit Dr. Michelle Acosta Work Phone: [facility] Start: 11-27-2022 End: 11-27-2022 Admission to same day surgery center Dr. Rachna Acosta Work Phone: [facility]Special Procedures Work Phone: Start: 11-22-2022 End: 11-22-[address] Rachna Acosta Work Phone: [facility] Work Phone: Start: 11-08-2022 Non-patient / Non-visit Dr. Michelle Acosta Work Phone: [facility] Start: 11-08-2022 End: 11-08-[address] Rachna Acosta Work Phone: [facility] Work Phone: Start: 11-02-2022 End: 11-02-[address] Rachna Acosta Work Phone: [facility] Work Phone: Start: 10-29-2022 End: 10-29-[address] Rachna Acosta Work Phone: [facility] Work Phone: Start: 10-29-2022 End: 10-29-2022 Patient encounter procedure [facility], [place] Work Phone: Start: 10-25-2022 End: 10-25-2022 ambulatory [facility] Work Phone: Start: 10-25-2022 End: 10-25-2022 Patient encounter procedure [facility]-Cat Scan, [facility] Work Phone: Start: 10-24-2022 End: 10-24-2022 ambulatory [facility] Work Phone: Start: 10-24-2022 End: 10-24-2022 [facility] Work [facility]: Start: 10-09-2022 End: 10-09-2022 ambulatory [facility] Work Phone: Start: 10-09-2022 End: 10-09-2022 Patient encounter procedure [facility]Rad[facility], [facility] Work Phone: Start: 07-19-2022 End: 07-19-2022 ambulatory [facility] Work Phone: Start: 07-19-2022 End: 07-19-2022 Patient encounter procedure [facility], [facility] Start: 06-21-2022 ambulatory RACHNA ACOSTA [facility] Start: 06-19-2022 End: 06-19-2022 ambulatory ABHISHEK ANDREWS [facility] Start: 06-19-2022 End: 06-19-2022 Office outpatient visit 15 minutes Abhishek Andrews MD Work Phone: [facility] [place] Comment on above: Sensorineural hearin g loss, bilateral (Primary Dx); Impacted cerumen of right ear; Impaired auditory discrimination, right Start: 12-04-2021 End: 12-04-2021 ambulatory [facility] Work Phone: Start: 12-04-2021 End: 12-04-2021 [facility] Start: 09-29-2021 Documentation procedure Mammog jonh Coordinator [facility] Start: 09-29-2021 Letter encounter Mammography Coordinator [facility] Department Start: 09-29-2021 End: 09-29-2021 Subsequent hospital visit by physician Screen Mammo [facility] Start: 08-01-2018 Patient encounter procedure VANESSA H REHMUS Facility:[facility] Start: 02-03-2018 End: 02-03-2018 Patient encounter procedure VANESSA H REHMUS Facility:[facility] Start: 12-24-2017 Patient encounter procedure VANESSA H REHMUS Facility:[facility] Start: 07-09-2017 End: 07-09-2017 Patient encounter procedure VANESSA H REHMUS Facility:[facility] Procedures Date Procedure Procedure Detail Performing [...] chest, PA a nd lateral views Dr. Rachan Acosta DO Work Phone: Start: 08-18-2024 X-ray [...] Speci men Type: BLOOD SPECIMEN Ordering Facility: [facility] Address: [address] [place] [address] Performed By: #### 5 [id number] #### [facility] CLIA [id number] [address] [place] [address] [place] [address] [place] Start: 12-26-2022 Radiography [...] 07-02-2026 Diabetes Screening Diabetes Screenin [facility] Start: 05-28-2026 Diabetes Screening Diabetes Screenin [facility] Start: 07-30-2024 End: 07-30-2025 Thoracentesis Thoracentesis PFT Routine Recurrent pleural effusion Pleural effusion on left Expected: 07/30/2024 (Approximate), Expires: 07/30/2025 [facility] Work Phone: Comment on above: Expected: 07/30/2024 (Approximate), Expires: 07/30/2025 Start: 07-22-2024 End: 07-22-2024 Patient encounter procedure 07/22/2024 12:45 PM EDT Appointment [facility] [address] [place] [address] Emeterio Malcolm DO [address] [place] [address] [facility] [address] Start: 06-03-2024 [facility] Start: 06-03-2024 Vital signs measurements [facility] Start: 05-31-2024 [facility] Start: 05-31-2024 [facility] Start: 02-19-2024 Advance Directive Discussion Advance Directive Discussion [facility] Start: 02-19-2024 Medicare Advantage A nnual Wellness Visit Medicare Advantage Annual Wellness Visit [facility] Start: 10-28-2023 End: 10-28-2023 Patient encounter procedure 10/28/2023 12:00 PM EDT Office Visit Cardiology [address] [place] [address] Mariella Yancey, RETAIL DIRECTOR.RESEARCH DIRECTOR [address] [place] [address] DX 3-4 MTH PVI Cardiology Comment on above: DX 3-4 MTH PVI Start: 10-20-2023 Covid-19 Vaccine ( season) Covid-19 Vaccine ( season) [facility] Start: 10-20-2023 Influenza vaccination Influenza Vacc ine (#1) [facility] Start: 10-03-2023 End: 10-03-2023 Patient encounter procedure 10/03/2023 12:00 PM EDT Office Visit Cardiology [address] [place] [address] Luis F Bravo, RETAIL DIRECTOR.RESEARCH DIRECTOR [address] [place] [address] DX 3-4 MTH PVI Cardiology Comment on above: DX 3-4 MTH PVI Start: 10-03-2023 End: 10-03-2023 ambulatory 10/03/2023 11:15 AM EDT Results Only Cardiology [address] [place] [address] DX 3-4 MTH PVI Cardiology Comment on above: DX 3-4 MTH PVI Start: 07-24-2023 End: 07-24-2023 Admission to same day surgery center 07/24/2023 1:00 PM EDT - 07/24/2023 6:00 PM EDT Surgery HOSP EP Lab [address] [place] [address] Bear Rodarte MD [address] [place] [address] COMPLETE EPS W/PVI ABL W/WO 3D MAP [...] EDT Hospital Encounter HOSP EP Lab [address] [place] [address] Bear Rodarte MD [address] [place] [address] Paroxysmal atrial fibrillation (HCC) [I48.0] HOSP EP Lab Comment on above: Paroxysmal atrial fi brillation (HCC) [I48.0] Start: 07-24-2023 End: 07-24-2023 Patient encounter procedure Admitting Comment on above: PVI ABLATION Start: 07-03-2023 End: 07-03-2023 Admission to same day surgery center 07/03/2023 1:00 PM EDT - 07/03/2023 6:00 PM EDT Surgery HOSP EP Lab [address] [place] [address] Bear Rodarte MD [address] [place] [address] COMPLETE EPS W/PVI ABL W/WO 3D MAP ICE HOSP EP Lab Comment on above: COMPLETE EPS W/PVI A BL W/WO 3D MAP ICE Start: 07-03-2023 Subsequent hospital visit by physician 07/03/2023 1:00 PM EDT Hospital Encounter HOSP EP Lab [address] [place] [address] Bear Rodarte MD [address] [place] [address] Paroxysmal atrial fibrillation (HCC) [I48.0] HOSP EP Lab Comment on above: Paroxysmal atrial fi brillation (HCC) [I48.0] Start: 07-03-2023 End: 07-03-2023 Ephys evl trnsptl tx atrial fib isolat pulm vein EP LAB Start: 07-03-2023 End: 07-03-2023 Patient encounter procedure Admitting Comment on above: PVI ABLATION Start: 06-26-2023 End: 06-26-2023 [facility] Draw Station Comment on above: PVI ABLATION Start: 06-26-2023 End: 06-26-2023 Patient encounter procedure Radiology Comment on above: PVI ABLATION Start: 06-23-2023 End: 05-23-2024 Basic metabolic 2000 panel - Serum or Plasma BASIC METABOLIC PNL Lab Routine Atrial fibrillation, persistent (HCC) Expected: 06/23/2023, Expires: 05/23/2024 [facility] Work Phone: Comment on above: Expected: 06/23/2023 , Expires: 05/23/2024 Start: 06-23-2023 End: 05-23-2024 CBC panel - Blood by Automated count CBC Lab Routine Atrial fibrillation, persistent (HCC) Expected: 06/23/2023, Expires: 05/23/2024 [facility] Work Phone: Comment on above: Expected: 06/23/2023 , Expires: 05/23/2024 Start: 06-23-2023 End: 05-23-2024 CONFIRM BLOOD TYPE CONFIRM BLOOD TYPE Blood Bank Routine Atrial fibrillation, persistent (HCC) Expected: 06/23/2023, Expires: 05/23/2024 [facility] Work Phone: Comment on above: Expected: 06/23/2023 , Expires: 05/23/2024 Start: 06-23-2023 End: 05-23-2024 TYPE AND SCREEN,30 DAY TYPE AND SCREEN,30 DAY Blood Bank Routine Atrial fibrillation, persistent (HCC) Expected: 06/23/2023, Expires: 05/23/2024 [facility] Work Phone: Comment on above: Expected: 06/23/2023 , Expires: 05/23/2024 Start: 05-24-2023 End: 08-23-2023 CREATININE BLD CREATININE BLD Lab Routine Atrial fibrillation, persistent (HCC) Expected: 05/24/2023, Expires: 08/23/2023 [facility] Work Phone: Comment on above: Expected: 05/24/2023 , Expires: 08/23/2023 Start: 03-01-2023 Patient referral [facility] Work Phone: Start: 02-21-2023 Patient discharge [facility] Start: 02-18-2023 Advance Directive Discussion Advance Directive Discussion [facility] Start: 02-18-2023 Behavioral Health Screening Behavioral Health Screening [facility] Start: 02-18-2023 Depression Assessment Depression Ass essment [facility] Start: 01-15-2023 Patient discharge [facility] Start: 12-26-2022 [facility] Start: 12-25-2022 End: 12-25-2022 Patient encounter procedure 12/25/2022 10:00 AM EST Office Visit [facility] [address] [place] [address] Abhishek Andrews MD [address] [place] [address] [facility] Start: 11-27-2022 Patient discharge [facility] Start: 10-19-2022 Covid-19 Vaccine ( season) Covid-19 Vaccine ( season) [facility] Start: 10-19-2021 Influenza vaccination INFLUENZA (#1) [facility] Start: 06-03-2021 COVID-19 VACCINE (4 - Booster for Moderna series) COVID-19 VACCINE (4 - Booster for Moderna series) [facility] Start: 2021 RSV Immunization for Adults (1 - 1-dose 75+ series) RSV Immunization for Adults (1 - 1-dose 75+ series) [facility] Start: 2021 RSV Vaccine (1 - 1-d ose 75+ series) RSV Vaccine (1 - 1-dose 75+ series) [facility] Start: 03-30-2021 COVID-19 Vaccine (4 - Booster for Moderna series) COVID-19 Vaccine (4 - Booster for Moderna series) [facility] Start: 02-18-2021 ADVANCE DIRECTIVE DISCUSSION ADVANCE DIRECTIVE DISCUSSION [facility] Start: 09-16-2020 Screening for malign ant neoplasm of breast Mammogram [facility] Start: 05-19-2018 DIABETES SCREEN DIABETES SCREEN [facility] Start: 05-19-2018 Diabetes Screening Diabetes Screenin g [facility] Start: 01-04-2018 Adult depression scr eening assessment DEPRESSION SCREENING [facility] Start: 04-29-2011 BONE DENSITY BONE DENSITY [facility] Start: 04-29-2011 Fall risk assessment Falls Risk Asse ssment [facility] Start: 04-29-2011 Pneumococcal Vaccine : 65+ (1 of 1 - PCV) Pneumococcal Vaccine: 65+ (1 of 1 - PCV) [facility] Start: 04-29-2011 Pneumococcal Vaccine : Age 65+ (1 - PCV) Pneumococcal Vaccine: Age 65+ (1 - PCV) [facility] Start: 04-29-2011 PNEUMOCOCCAL: 65+ (1 - PCV) PNEUMOCOCCAL: 65+ (1 - PCV) [facility] Start: 04-29-2011 Screening for osteoporosis Bone Dens ity Screening [facility] Start: 2006 RSV Vaccine (1 - 1-d ose 60+ series) RSV Vaccine (1 - 1-dose 60+ series) [facility] Start: 1996 Administration of he rpes zoster vaccine Zoster Vaccines (1 of 2) [facility] Start: 1996 Pneumococcal Vaccine : 50+ (1 of 1 - PCV) Pneumococcal Vaccine: 50+ (1 of 1 - PCV) [facility] Start: 1996 SHINGRIX VACCINE (1 of 2) [place] GRIX VACCINE (1 of 2) [facility] Start: 1996 Zoster Vaccines (1 of 2) Zoste r Vaccines (1 of 2) [facility] Start: 04-29-1991 COLOGUARD (FIT-DNA) COLOGUARD (FIT-D NA) [facility] Start: 04-29-1991 Colonoscopy COLONOSCOPY [facility] Start: 04-29-1991 COLORECTAL CANCER SCREENING COLORECTAL CANCER SCREENING [facility] Start: 04-29-[address] COLONOGRAPHY [facility] Start: 04-29-1991 FECAL OCCULT BLOOD FECAL OCCULT BLOO D [facility] Start: 04-29-1991 LIPID SCREEN LIPID SCREEN [facility] Start: 04-29-1991 SIGMOIDOSCOPY SIGMOIDOSCOPY [facility] Start: 1965 DTaP/Tdap/Td Vaccine s (1 - Tdap) DTaP/Tdap/Td Vaccines (1 - Tdap) [facility] Start: 1965 Pneumococcal Vaccine : 50+ Years (1 of 2 - PCV) Pneumococcal Vaccine: 50+ Years (1 of 2 - PCV) [facility] Start: 1965 Urine microalbumin profile [facility] Start: 1964 Depression Screening Depression Scre ening [facility] Start: 1964 Hepatitis C screening Hepatitis C Sc zora [facility] Start: 1958 Depression screening using PHQ-9 (Patient Health Questionnaire 9) score [facility] Start: 1949 History and physical examination, annual for health maintenance Wellness Visit [facility] Start: 1946 Creatinine measurement Creatinine Le arsh [facility] Start: 1946 Echocardiography Echocardiogram [facility] Start: 1946 Potassium measurement Potassium Leve l [facility] Start: 1946 Screening for osteoporosis [facility] Start: 1946 Tetanus vaccination Tetanus: Every 1 0yrs [facility] Start: 1946 Thyroid stimulating hormone measurement TSH Level [facility] Catheterization of l eft heart [facility] End: 07-22-2024 CT Chest W contrast IV [facility] Work Phone: Comment on above: Once for 1 Occurrenc es starting 07/22/2024 until 07/22/2024 End: 06-22-2024 CTA Pulmonary veins W contrast IV CT PULMONARY VEIN W IVCON Radiology Routine Atrial fibrillation, persistent (HCC) 1 Occurrences starting 05/24/2023 until 06/22/2024 [facility] Work Phone: Comment on above: 1 Occurrences starti ng 05/24/2023 until 06/22/2024 End: 04-11-2024 ECG COMPLETE ECG COMPLETE ECG Routine Atrial fibrillation, persistent (HCC) 1 Occurrences starting 04/11/2023 until 04/11/2024 [facility] Work Phone: Comment on above: 1 Occurrences starti ng 04/11/2023 until 04/11/2024 End: 05-23-2024 ECG COMPLETE ECG COMPLETE ECG Routine Atrial fibrillation, persistent (HCC) 1 Occurrences starting 05/24/2023 until 05/23/2024 [facility] Work Phone: Comment on above: 1 Occurrences starti ng 05/24/2023 until 05/23/2024 End: 04-09-2024 Echocardiography ECHO Cardiology Routine Atrial fibrillation, persistent (HCC) 1 Occurrences starting 04/09/2023 until 04/09/2024 [facility] Work Phone: Comment on above: 1 Occurrences starti ng 04/09/2023 until 04/09/2024 Patient Education [facility] Work Phone: Patient referral [facility] Work Phone: XR Chest PA and Lateral [facility] XR Chest PA and Lateral [facility] Immunizations Immunization Date Immunization Notes Care Provider Fa anayeli 12-06-2022 influenza virus vaccine, unspecified formulation Tish Dougherty APRN.CNP Work Phone: [facility] 05-11-2020 [facility] (Moderna) [facility] 04-13-2020 [facility] (Moderna) [facility] Payers Date Payer Category Payer Self-pay [id number] 2023 Medicare MMO MEDICARE MMO MEDADVANTAGE HMO [id number] 2023-Present [phone] [address] [place] [id number] O [id number] 2023 Medicare (Managed Care) MMO MEDADVANTAGE HMO [id number] 2023 Medicare HMO MMO MEDICARE ADV ANTAGE [id number] 2023 Medicare [id number] 2020 Unknown [id number] [id number]. [id number] 2015 Unknown [id number] 1946 Unknown [id number] 2.16.840.1.080936.3.579.2. 903 1946 Unknown [id number] 2.16.840.1.647526.3.579.2. 903 1946 Unknown [id number] 2.16.840.1.417489.3.579.2. 278 1946 Unknown [id number] 2.16.840.1.640148.3.579.2. 278 1946 Unknown [id number] 2.840.1.980890.3.579.2. 278 1946 Unknown [id number] 2.16.840.1.145824.3.579.2. 278 Medicare MEDICARE PART A B [id number] Medicare [id number] Unknown [id number] 2.840.1.940882.3.579.2. 462 Unknown [id number] 2.840.1.758054.3.579.2. 462 Unknown [id number] 2.840.1.359151.3.579.2. 462 Unknown [id number] 2.840.1.674800.3.579.2. 462 Unknown [id number] 2.840.1.562910.3.579.2. 462 Unknown [id number] 2.840.1.347901.3.579.2. 462 Unknown [id number] 2.840.1.875860.3.579.2. 462 Unknown [id number] 2.840.1.394041.3.579.2. 462 Unknown [id number] 2.16840.1.145977.3.579.2. 462 Unknown [id number] 2.840.1.808105.3.579.2. 462 Unknown [id number] 2.840.1.846030.3.579.2. 462 Unknown [id number] 2.16.840.1.193065.3.579.2. 462 Unknown [id number] 2.16.840.1.055266.3.579.2. 462 Unknown [id number] 2.16.840.1.813720.3.579.2. 462 Unknown [id number] 2.16.840.1.310301.3.579.2. 462 Unknown [id number] 2.16.840.1.942926.3.579.2. 462 Unknown [id number] 2.16.840.1.471352.3.579.2. 462 Unknown [id number] 2.16.840.1.315596.3.579.2. 462 Unknown [id number] 2.16.840.1.458263.3.579.2. 462 Unknown [id number] 2.16.840.1.368273.3.579.2. 462 Unknown [id number] 2.16.840.1.922781.3.579.2. 462 Social History Date Type Detail Facility Start: 01-04-2017 End: 05-31-2024 Tobacco smoking status NHIS Ex-smoker [facility] Start: 02-19-1976 End: 02-19-2016 History of tobacco use Current smoker [facility] Start: 02-19-1976 End: 02-19-2016 History of tobacco use Cigarette Smoker [facility] Start: 01-04-2017 End: 04-09-2023 Tobacco use and exposure Smokeless tobacco non-user [facility] Start: 08-11-2019 End: 10-03-2023 Alcohol intake Current drinker of alcohol (finding) [facility] Start: 08-11-2019 End: 04-09-2023 Alcohol intake [facility] Start: 03-01-2015 History SDOH Alcohol Comment social [facility] Start: 12-27-2016 End: 04-09-2023 Tobacco Comment 3 cigarettes/day [facility] Start: 1945 Sex Assigned At Not on file [facility] Start: 09-19-2021 End: 06-19-2022 Exposure to SARS-CoV-2 (event) Not sure [facility] Start: 1945 Sex Assigned At Female [facility] Start: 11-02-2022 End: 03-01-2023 Tobacco smoking status NHIS Tobacco smoking consumption unknown [facility] Start: 04-09-2023 End: 10-03-2023 Gender identity Not on file [facility] National Score (1-100), lower number is lower risk 72 [facility] Start: 03-04-2023 End: 05-31-2024 Sex Female (finding) [facility] Goals Date Patient Goal Desired Activity /State Personal health goal Mental Status Date Assessment Result Facility 08-14-2024 Cognitive function Level Of Cons ciousness Awake;Alert;Appropriate [facility] Work Phone: 06-03-2024 Cognitive function Level Of Cons ciousness Awake;Alert;Appropriate [facility] Work Phone: Clinical Notes 09-29-2021 to 11-03-2024 Note Date & Type Note Facility 11-03-2024 Radiology Diagnostic study note [facility] Imaging Services [address] [place] [address] Chest PA and Lateral MR#: [id number] Acct: [id number] Name: CRISELDA STORM Rep #: [id number] : 1945 F 79 From: Manny Woodward MD PCP: Dr. Rachna Acosta, DO Status: REG CLI Study:Chest PA and Lateral Date of Exam: 11/03/24 Exam# [id number] Ordering Dr: Clarence Kim FINISHED CIGAR MAKER FINISHED CIGAR MAKER-C PROCEDURE: CHEST PA AND LATERAL 11/03/2024 REASON [...] LEX Kim; Dr. Rachna Acosta DO ~ Band Tacker: Signed [facility] 10-01-2024 Radiology Diagnostic study note [facility] Imaging Services [address] [place], [place] [address] Chest PA and Lateral MR#: [id number] Acct: [id number] Name: CRISELDA STORM Rep #: [id number] : 1945 F 79 From: Estrella Silva MD PCP: Dr. Rachna Acosta DO Status: REG CLI Study:Chest PA and Lateral Date of Exam: 10/01/24 Exam# [id number] Ordering Dr: Clarence Kim NP FINISHED CIGAR MAKER-Ulysses PROCEDURE: CHEST PA AND LATERAL 10/01/2024 REASON [...] LEX Kim; Dr. Rachna Acosta DO ~ Band Tacker: Signed [facility] 09-01-2024 Radiology Diagnostic study note [facility] Imaging Services [address] [place], [place] [id number] Chest PA and Lateral MR#: [id number] Acct: [id number] Name: CRISELDA STORM Rep #: [id number] : 1945 F 79 From: Pauline Noland MD PCP: Dr. Rachna Acosta DO Status: REG CLI Study:Chest PA and Lateral Date of Exam: 09/01/24 Exam# [id number] Ordering Dr: Clarence Kim FINISHED CIGAR MAKER FINISHED CIGAR MAKER-C EXAM: XR Chest, 2 Views CLINICAL INDICATION: [...] pneumonia. 2. Left pleural effusion. [facility] CC: FINISHED CIGAR MAKER-C Cinthia Kim; Dr. Rachna Acosta DO ~ Band Tacker: Signed [facility] 08-19-2024 Radiology Diagnostic study note [facility] Imaging Services [address] [place], [place] [address] Chest PA and Lateral MR#: [id number] Acct: [id number] Name: CRISELDA STORM Rep #: [id number] : 1945 F 79 From: Allyn Lala MD PCP: Dr. Rachna Acosta DO Status: REG CLI Study:Chest PA and Lateral Date of Exam: 08/18/24 Exam# [id number] Ordering Dr: Clarence Kim FINISHED CIGAR MAKER FINISHED CIGAR MAKER-C PROCEDURE: CHEST PA AND LATERAL 08/18/2024 REASON [...] right base faint airspace disease. Reading Location: [facility] CC: LEX Kim; Dr. Rachna Acosta, DO ~ Band Tacker: Signed [facility] 08-18-2024 Evaluation note Diagnosis Onset Date Resolution Atrial flutter acute August 18, 2024 9:23am Non-ischemic cardiomyopathy acute August 18, 2024 9:23am [facility] Work Phone: 1(968) 346-392007-01-2025 Evaluation note* Diagnosis Onset Date Resolution Status Admit Date Atrial flutter acute August 18, 2024 9:23am Non-ischemic cardiomyopathy acute August 18, 2024 9:23am Bilateral pleural effusion acute November 03, 2024 8:59am CHF (congestive heart failur e), NYHA class III acute November 03, 2024 8:59am Non-ischemic cardiomyopathy acute November 03, 2024 8:59am Shortness of breath acute 2024 8:59am [facility] Work Phone: 1(680) 196-139307-01-2025 Evaluation note* Diagnosis Onset Date Resolution Status Admit Date Atrial flutter acute August 18, 2024 9:23am Non-ischemic cardiomyopathy chronic August 18, 2024 9:23am Atrial flutter acute November 03, 2024 8:59am Bilateral pleural effusion chronic November 03, 2024 8:59am Non-ischemic cardiomyopathy chronic November 03, 2024 8:59am [facility] Work Phone: 1(497) 769-967206-27-2025 Radiology Diagnostic study note [facility] Imaging Services [address] [place], [place] [id number] Thoracentesis W US MR#: [id number] Acct: [id number] Name: CRISELDA STORM Rep #: [id number] : 1945 F 79 From: Moy Francis MD PCP: Dr. Rachna Acosta DO Status: REG CLI Study:Thoracentesis W US Date of Exam: 0 08/14/24 Exam# [id number] Ordering Dr: Julio MALCOLM PROCEDURE: THORACENTESIS W US 08/14/2024 REASON FOR EXAM: RECURRENT PLEURAL EFFUSION TECHNIQUE: THORACENTESIS W US, left COMPARISON: Prior thoracentesis of 06/03/2024. FINDINGS: Following informed consent, and using standard sterile technique, an ultrasound- guided left thoracentesis was performed via a posterior approach. 2% lidocaine local anesthesia was followed by placement of a 5 Nauruan catheter into the fluid collection. Approximately 650 mL slightly blood-tinged fluid was successfully removed. No complication was encountered, the patient left the department good condition without significantcomplaint. US/Thoracentesis W US IMPRESSION: Successful left sided ultrasound-guided therapeutic thoracentesis. Reading Location: [place] [address] CC: Dr. Rachna Acosta DO; EMETERIO MALCOLM ~ Band Tacker: Signed [facility]06-18-2025 Telephone encounter Note* Telephone Encounter - Fabiana Millan RN - 08/05/2024 3:53 PM EDT Pt daughter called requesting thoracentesis order faxed to [place]. Order faxed. Pt daughter statesshe is scheduling at [place] and will follow up with pt PCP unless her mom decides on a different route. [facility] Miscellaneous Notes* Telephone Encounter - Fabiana Millan RN - 08/05/2024 3:53 PM EDT Pt daughter called requesting thoracentesis order faxed to [place]. Order faxed. Pt daughter statesshe is scheduling at [place] and will follow up with pt PCP [...] Name of caller: Coco Contact phone number: [phone] Relationship to Patient: Daughter Provider: Dr. Malcolm Practice: Cardiothoracic Chief Complaint/Reason for Call: Patient daughter requesting a callback to discuss imaging results of chest CT. Please advise. Best time of day caller can be reached: Any Patient advised that office/PCP has 24-48 business hours to return their call: Yes' documented in this [facility]06-16-2025 Telephone encounter Note* Telephone Encounter - Fabiana Millan RN - 08/03/2024 9:27 AM EDT Spoke to daughter who states they would prefer to call central scheduling due to her work schedule.Number given. [id number] NoteOrders Placed This Encounter Procedures Thoracentesis Standing Status: Future Expected Date: 07/30/2024 Expiration Date: 07/30/2025[facility]06-12-2025 Telephone encounter Note* Telephone Encounter - Fabiana Millan RN - 07/30/2024 3:11 PM EDT Orders Placed This Encounter Procedures Thoracentesis Standing Status: Future Expected Date: 07/30/2024 Expiration Date: 07/30/2025 [id number] Telephone encounter Note* Telephone Encounter - Fabiana Millan RN - 07/30/2024 3:[address] Malcolm reviewed results with Coco, patient's daughter, per patient's request. Per Dr. Malcolm, plan is to schedule a thoracentesis for patient and she will call our office prn. [id number] Telephone encounter Note* Telephone Encounter - Brenda Tony - 07/29/2024 4:46 PM EDT Name of caller: Coco Contact phone number: [phone] Relationship to Patient: Daughter Provider: Dr. Malcolm Practice: Cardiothoracic Chief Complaint/Reason for Call: Patient daughter requesting a callback to discuss imaging results of chest CT. Please advise. Best time of day caller can be reached: Any Patient advised that office/PCP has 24-48 business hours to return their call: Yes' [facility]ighJdbjeb02-98-2710 NoteOrders Placed This Encounter Procedures CT chest [...] Occurrences: 1 Expected Date: 07/16/2024 Expiration Date: 07/16/2025[facility]05-29-2025 History of Present illness Narrative* Emeterio Malcolm, DO - 07/16/2024 12:00 PM EDT Images from the original note were not included. [facility] [address] [facility] [address] Dept: [phone] Dept Loc: [phone] Visit type: New Reason for Visit: Pleural [...] and office visit notes from cardiology in [place]. Even without this information I did propose [...] Rachna Acosta DO Cardiology: Luis F Bravo, RETAIL DIRECTOR-ELISE Malcolm DO FACS Cardiothoracic Surgery [1] No [...] daily., Disp: , Rfl: documented in this [facility]05-08-2025 Radiology Diagnostic study note [facility] Imaging Services [address] [place] [id number] Chest PA and Lateral MR#: [id number] Acct: [id number] Name: CRISELDA STORM Rep #: [id number] : 1945 F 79 From: Shen Rose MD PCP: Dr. Rachna Acosta DO Status: REG CLI Study:Chest PA and Lateral Date of Exam: 06/24/24 Exam# [id number] Ordering Dr: Michelle Acosta sa, DO PROCEDURE: [...] MICHAEL CC: Dr. Rachna Acosta DO ~ Band Tacker: Signed [facility]04-16-2025 Evaluation note* Diagnosis Onset Date Resolution Status Admit Date Shortness of breath acute June 03, 2024 8:06am Pleural effusion inactive June 032024 8:06am Atrial flutter acute August 18, 2024 9:23am Non-ischemic cardiomyopathy acute August 18, 2024 9:23am [facility] Work Phone: 1(143) 612-375404-13-2025 Radiology Diagnostic study note [facility] Imaging Services [address] [place] [address] Chest PA and Lateral MR#: [id number] Acct: [id number] Name: CRISELDA STORM Rep #: [id number] : 1945 F 79 From: Skyler Fabian DO PCP: Dr. Rachna Acosta DO Status: REG ER Study:Chest PA and Lateral Date of Exam: 05/31/24 Exam# [id number] Ordering Dr: Garland Greene DO PROCEDURE: CHEST [...] Greene DO; Dr. Rachna Acosta DO ~ Band Tacker: Signed [facility]03-13-2025 History of Present illness Narrative* Brittany Camacho [...] PATIENT PRESENTS WITH AN IMPLANTABLE OR ATTACHED PHYSICIAN CHIEF OF PATHOLOGY: No RADIOLOGY DEPARTMENT: Mammography PERIPHERAL IV DATA: Not applicable SIGNED BY: Robert Bae April 30, 2024 12:42 PM documented in [facility]2025 NoteHNO ID: [id number] Author: BRITTANY CAMACHO Mammo Tech Service: ? Author Type: Professional Development Instructor Type: Progress Notes Filed: 04/30/2024 12:42 Note [...] PATIENT PRESENTS WITH AN IMPLANTABLE OR ATTACHED PHYSICIAN CHIEF OF PATHOLOGY: No RADIOLOGY DEPARTMENT: Mammography PERIPHERAL IV DATA: Not applicable SIGNED BY: Robert Bae April 30, 2024 12:42 [facility]01-17-2025 Evaluation note* Diagnosis Onset Date Resolution Status Admit Date Atrial flutter acute March 062024 8:28am Non-ischemic cardiomyopathy acute March 06, 2024 8:28am Gastric wall thickening acute F [facility] 2024 1:43pm [facility] Work Phone: 1(849) 577-112301-17-2025 Evaluation note* Diagnosis Onset Date Resolution Status Admit Date Atrial flutter acute March 062024 8:28am Non-ischemic cardiomyopathy acute March 06, 2024 8:28am Gastric wall thickening [facility] 2024 1:43pm Shortness of breath acute June 03, 2024 8:06am Pleural effusion inactive June 032024 8:06am [facility] Work Phone: 1(933) 971-919808-15-2024 History of Present illness Narrative* Luis F Bravo APRN.CNP - 10/03/2023 12:00 PM EDT Images from the original note were not included. [facility] Department of Cardiovascular Medicine SECTION OF CARDIAC PACING and ELECTROPHYSIOLOGY OUTPATIENT VISIT DATE October 03, 2023 OUTPATIENT VISIT TYPE EST PRIMARY CARE PHYSICIAN: Rachna Acosta [address] [place] [address] REFERRING PHYSICIAN: Bear Rodarte [address] [facility] [address] CHIEF COMPLAINT: Post op HISTORY OF PRESENT ILLNESS: Ms. Strom is a 78 year old female who [...] Cancer Mother Stomach, age 40's Heart Father MA No Known Problems Sister Heart Brother MA other (no other known family hx of [...] F Bravo APRN.CNP Pacing and Electrophysiology [address]/ Desk J2-2 Appointment:[phone] Dr. Bear Rodarte's office To schedule an appointment please call -- [phone] Other questions or concerns please call his office at-- [phone] Fax#: [phone] EP outside records and Care Everywhere Reviewed [...] Luis F Bravo APRN.CNP documented in this encounterCleveland Clinic [facility]08-15-2024 NoteHNO ID: [id number] Author: LUIS F BRAVO APRN.CNP Service: ? Author Type: Nurse Practitioner Type: Progress Notes Filed: 10/03/2023 21:35 Note Text: [facility] Department of Cardiovascular Medicine SECTION OF CARDIAC PACING and ELECTROPHYSIOLOGY OUTPATIENT VISIT DATE October 03, 2023 OUTPATIENT VISIT TYPE EST PRIMARY CARE PHYSICIAN: Rachna Acosta [address] [place] [address] REFERRING PHYSICIAN: Bear Rodarte [address] [facility] [address] CHIEF COMPLAINT: Post op HISTORY OF PRESENT [...] Cancer Mother Stomach, age 40's Heart Father MA No Known Problems Sister Heart Brother MA other (no other known family hx of [...] stools-No. Neurological/Psychiatric: Weakness, para (more content not included)...[facility]06-06-2024 NoteHNO ID: [id number] Author: ?, ?, ? Service: ? Author Type: ? Type: Progress Notes Filed: 07/25/2023 12:03 Note Text: Incidental Lung Nodule Enrollment Outreach attempt: 3rd Attempt Outreach status: Complete Enrolled in Lung Nodule program: No Declined reason: Other Lung Nodule Program Location: [place] Two letter attempts, no response. Discharge letter sent.[facility]06-06-2024 History of Present illness Narrative* Carole Kilgore - 07/25/2023 12:01 PM EDT Incidental Lung Nodule Enrollment Outreach attempt: 3rd Attempt Outreach status: Complete Enrolled in Lung Nodule program: No Declined reason: Other Lung Nodule Program Location: [place] Two letter attempts, no response. Discharge letter sent. documented in this encounterC[facility]06-06-2024 NotePatient Outreach (PULMMN) CRISELDA STORM ([id number]) 1945 F Date Time Provider Department 07/25/23 CAROLE KILGORE During your visit today, we recorded the following information about you: Carole Kilgore 07/25/2023 12:03 PM Signed Incidental Lung Nodule Enrollment Outreach attempt: 3rd Attempt Outreach status: Complete Enrolled in Lung Nodule program: No Declined reason: Other Lung Nodule Program Location: [place] Two letter attempts, no response. Discharge letter [...] Text Encounter Status:Closed by CAROLE KILGORE on 07/25/23[facility] 07-17-2023 NoteHNO ID: [id number] Author: ?, ?, ? Service: ? Author Type: ? Type: Progress Notes Filed: 07/17/2023 08:16 Note Text: Incidental Lung Nodule Enrollment Outreach attempt: 2nd Attempt Outreach status: Complete Enrolled in Lung Nodule program: Referred Lung Nodule outreach: Needs outreach Lung Nodule Program Location: [place] [facility]05-[facility]24 History of Present illness Narrative* Carole Kilgore - 07/17/2023 8:15 AM EDT Incidental Lung Nodule Enrollment Outreach attempt: 2nd Attempt Outreach status: Complete Enrolled in Lung Nodule program: Referred Lung Nodule outreach: Needs outreach Lung Nodule Program Location: [facility] letter attempts documented in this encounterCleveland Clinic [facility]05-29-2024 NotePatient Outreach (PULMMN) CRISELDA STORM ([id number]) 1945 F Date Time Provider Department 07/17/23 [...] Text Encounter Status:Closed by CAROLE KILGORE on 07/17/23[facility]05-22-2024 NoteHNO ID: [id number] Author: DEISY CLEMENTE APRN.CNP Service: ? Author [...] outreach: Needs outreach Lung Nodule Program Location: [facility]05-22-2024 History of Present illness Narrative* Deisy Clemente [...] outreach: Needs outreach Lung Nodule Program Location: [facility] documented in this encounterCleveland Clinic [facility]05-22-2024 NotePatient Outreach ([facility]) CRISELDA STORM ([id number]) 1945 F Date Time Provider Department 07/10/23 DEISY CLEMENTE [facility] During your visit today, we recorded the [...] outreach: Needs outreach Lung Nodule Program Location: [facility] Allergies As of Date: 07/10/2023 (No Known [...] Text Encounter Status:Closed by DEISY CLEMENTE on 07/10/23[facility] 07-05-2023 History of Present illness Narrative* Carole Kilgore - 07/05/2023 3:32 PM EDT Patient Discharged from Hospital Needs outreach documented in this encounterCleveland Clinic [facility]05-17-2024 NoteHNO ID: [id number] Author: ?, ?, ? Service: ? Author Type: ? Type: Progress Notes Filed: 07/05/2023 15:32 Note Text: Patient Discharged from Hospital Needs outreachMarymount Hospital05-17-2024 NotePatient Outreach ([facility]) CRISELDA STORM ([id number]) 1945 F Date Time Provider Department 07/05/23 [...] 04/09/2023 Encounter Status:Closed by CAROLE KILGORE on 07/05/23[facility]05-16-2024 NoteHNO ID: [id number] Author: ?, ?, ? Service: ? Author Type: ? Type: Progress Notes Filed: 07/04/2023 10:44 Note Text: TRANSMITTER INSTRUCTIONS Patient Name: Criselda Storm [facility] Number: [id number] Fresh battery inserted in monitor Patient instructed 1.) Scheduled and Symptomatic recording instructions 2.) Usage of event button and/or transmission instructions 3.) Maintenance and care of monitor 4.) Prefer land line or select mobile phones 5.) Return unit at the end of prescribed order 6.) Call with problems [phone] OR Ext.[phone] Patient expresses good verbal understanding of instructions Suzi Ro [facility]05-16-2024 History of Present illness Narrative* Suzi Puente - 07/04/2023 10:43 AM EDT TRANSMITTER INSTRUCTIONS Patient Name: Criselda Storm [facility] Number: [id number] Fresh battery inserted in monitor Patient instructed 1.) Scheduled and Symptomatic recording instructions 2.) Usage of event button and/or transmission instructions 3.) Maintenance and care of monitor 4.) Prefer land line or select mobile phones 5.) Return unit at the end of prescribed order 6.) Call with problems [phone] OR Ext.[phone] Patient expresses good verbal understanding of instructions Suzi Denny documented in this encounterCleveland Clinic [facility]05-16-2024 Telephone encounter Note * Telephone Encounter - Ani Velasquez RN - 07/04/2023 10:03 AM EDT Pt contacted for discharge follow up from recent hospital stay. Pt verified name and and informed that call was on a recorded line. Pt denies any questions or concerns since discharge yesterday. Closing comments given including reminder of 24 hour nurse resource line in discharge paperwork. [facility]05-16-2024 Miscellaneous Notes* Telephone Encounter - Ani Velasquez RN - 07/04/2023 10:03 AM EDT Pt contacted for discharge follow up from recent hospital stay. Pt verified name and and informed that call was on a recorded line. Pt denies any questions or concerns since discharge yesterday. Closing comments given including reminder of 24 hour nurse resource line in discharge paperwork. documented in this encounterCleveland Clinic [facility]05-15-2024 NoteHNO ID: [id number] Author: EVETTE HALL PA-C Service: ? Author Type: Physician Photo Printer Type: Progress Notes Filed: 07/03/2023 14:36 Note Text: Incidental Lung Nodule Enrollment Outreach attempt: 1st Attempt Outreach status: Complete Enrolled in Lung Nodule program: Referred Lung Nodule outreach: No outreach - Inpatient Lung Nodule Program [place] [facility] History of Present illness Narrative* Evette Hall PA-C - 07/03/2023 2:36 PM EDT Incidental Lung Nodule Enrollment Outreach attempt: 1st Attempt Outreach status: Complete Enrolled in Lung Nodule program: Referred Lung Nodule outreach: No outreach - Inpatient Lung Nodule Program Location: [place] documented in this [facility]05-15-2024 NoteHNO ID: [id number] Author: BOSSMAN LONDONO MD Service: Cardiovascular Medicine Author Type: Fellow Type: Plan of Care Filed: 07/03/2023 11:08 Note Text: BRIEF PROCEDURE NOTE: Procedure: PVI Start time: July 03, 2023, 9:15 AM End time: July 03, 2023, 11:07 AM Primary Surgeon: Bear Rodarte MD Photo Printer: Bossman Londono MD Outcome: success Access: 17Fr [...] day discharge Full report to follow in [facility] (Under Chart Review -> Cardiac) Bossman Londono MD Cardiac Electrophysiology Fellow, PGY-8 Personal pager/cell: [phone] 07/03/2023 11:07 AM Please note: This note was written using [employer] dictation software. Please excuse typos and [id number]-[id number] that the dictation may have mistakenly made. For communication after 5 pm on weekdays and after 12 pm on weekends, please page the following: - Clinical Cardiology patients on all floors: page [phone] - All other patients: after hours SORAYA (found in the On-Call directory by searching SORAYA) - For any urgent or emergent [place], [place] [phone] [facility]05-15-2024 NoteHNO ID: [id number] Author: STEPHANIE NOGUEIRA APRN.CONCRETE PANEL INSTALLER Service: ? Author Type: Nurse Ballroom Dance Instructor Type: Anesthesia Procedure Notes Filed: 07/03/2023 08:59 Note Text: ANESTHESIOLOGY PROCEDURE NOTE Airway General Information Procedure Start Time/Medication Administration: 07/03/2023 8:36 AM Procedure End Time: 07/03/2023 8:39 AM Patient location during procedure: OR Timeout Performed Pre-procedure: timeout performed Consent Obtained: Yes Patient identity confirmed: arm band and patient Staffing CONCRETE PANEL INSTALLER: Stephanie Nogueira APRN.CONCRETE PANEL INSTALLER Performed by: ARIADNA Indications and Patient Condition Indications for airway management: anesthesia Preoxygenated: yes anesthesia circuit Method: sleep Difficult Mask: No Final Airway Details Final airway type: endotracheal airway Final Endotracheal Airway: ETT Cuffed: yes Successful intubation technique: video laryngoscopy Devices used: [employer] Endotracheal tube insertion site: oral Blade size: #3 ETT size (mm): 7.0 Measured from: lips Measurement (cm): 22 Placement verified by: capnometry Cormack-Lehane Classification: grade I - full view of glottis Number of attempts at approach: 1 Airway not difficult SIGNATURE: Stephanie Nogueira APRN.CRNA PATIENT NAME: Criselda Storm DATE: July 03, 2023 TIME: 8:58 AM [facility]: [id number] NoteHNO ID: [id number] Author: STEPHANIE NOGUEIRA APRN.CONCRETE PANEL INSTALLER Service: ? Author Type: Nurse Ballroom Dance Instructor Type: Anesthesia Procedure Notes Filed: 07/03/2023 08:58 Note Text: ANESTHESIOLOGY PROCEDURE NOTE PIV General Information Procedure Start Time/Medication Administration: 07/03/2023 8:38 AM Procedure End Time: 07/03/2023 8:40 AM Patient Location: OR Staffing CONCRETE PANEL INSTALLER: Kimberly Nash APRN.CONCRETE PANEL INSTALLER Performed by: ARIADNA Preparation Sterility Preparation: hand [...] July 03, 2023 TIME: 8:57 AM CSN: [id number] NotePatient Outreach (PMNA11) CRISELDA STORM ([id number]) 1945 F Date Time Provider Department 07/03/23 EVETTE HALL PMNA11 During your visit today, we recorded the following information about you: Evette Hall PA-C 07/03/2023 2:36 PM Signed Incidental Lung Nodule Enrollment Outreach attempt: 1st Attempt Outreach status: Complete Enrolled in Lung Nodule program: Referred Lung Nodule outreach: No outreach - Inpatient Lung Nodule Program Location: [place] Allergies As of Date: 07/03/2023 (No Known [...] 04/09/2023 Encounter Status:Closed by EVETTE HALL on 07/03/23[facility]05-14-2024 NoteHNO ID: [id number] Author: KIMBERLY GUZMAN RN Service: ? Author [...] discussed with Physician, nurse practitioner or Physician household assistant upon discharge Instructions for transmitting EKG to Monitoring Center 3 month follow up instructions Contact number for information and questions Patient Evaluation: Verbalizes understanding Follow Up Plan: Follow up as directed by MD. Supplemental Material Given: Written Material Patient education RE: Radiation Exposure. Instructed By Kimberly Guzman RN. In Department of CARDIOLOGY.[facility]05-14-2024 History of Present illness Narrative* Kimberly Guzman [...] discussed with Physician, nurse practitioner or Physician household assistant upon discharge Instructions for transmitting EKG to Monitoring Center 3 month follow up instructions Contact number for information and questions Patient Evaluation: Verbalizes understanding Follow Up Plan: Follow up as directed by MD. Supplemental Material Given: Written Material Patient education RE: Radiation Exposure. Instructed By Kimberly Guzman RN. In Department of CARDIOLOGY. documented in this encounterC[facility]-14-[facility] NoteEducation (EPSMN) CRISELDA STORM ([id number]) 1945 F Date Time Provider Department 07/02/23 [...] day. Encounter Status:Closed by KIMBERLY GUZMAN on 07/02/23[facility] 06-26-2023 History of Present illness Narrative* Tisha Araujo APRN.ELISE - 06/26/2023 3:00 PM EDT Images from the original note were not included. [facility] Department of Cardiovascular Medicine SECTION OF CARDIAC PACING and ELECTROPHYSIOLOGY OUTPATIENT VISIT DATE June 26, 2023 OUTPATIENT VISIT TYPE ESTABLISHED PRIMARY CARE PHYSICIAN: Rachna Acosta [address] [place] [address] Temporary Data Entry Clerk: Dr. Melchor REFERRING PHYSICIAN: Self CHIEF COMPLAINT: [...] in March, she had an echo at [facility] which revealed EF had normalized to [...] Cancer Mother Stomach, age 40's Heart Father MA No Known Problems Sister Heart Brother MA other (no other known family hx of [...] 06/26/2023 reviewed: Sinus Rhythm V-rate 60 bpm CO 170 ms QRS 78 ms QT/QTc 472/472 [...] obtained at those intervals either through the [facility] or through his physician's office and to [...] in half - Call the EP Lab [phone] on June 30 for procedure instrucionts - Continue Eliquis - Continue amiodarone - Return for follow up in September CONTACT INFORMATION: Tisha Araujo APRN.CNP documented in this encounterCleveland Clinic [facility]05-08-2024 NoteHNO ID: [id number] Author: TISHA ARAUJO APRN.CNP Service: ? Author Type: Nurse Practitioner Type: Progress Notes Filed: 06/26/2023 16:47 Note Text: [facility] Department of Cardiovascular Medicine SECTION OF CARDIAC PACING and ELECTROPHYSIOLOGY OUTPATIENT VISIT DATE June 26, 2023 OUTPATIENT VISIT TYPE ESTABLISHED PRIMARY CARE PHYSICIAN: Rachna Acosta [address] [place] [address] Temporary Data Entry Clerk: Dr. Melchor REFERRING PHYSICIAN: Self CHIEF COMPLAINT: [...] in March, she had an echo at [facility] which revealed EF had normalized to [...] Cancer Mother Stomach, age 40's Heart Father MA No Known Problems Sister Heart Brother MA other (no other known family hx of [...] (125 lb) BMI 21 (more content not included)...[facility]05-08-2024 History of Present illness Narrative* Ann Bello [...] PATIENT PRESENTS WITH AN IMPLANTABLE OR ATTACHED PHYSICIAN CHIEF OF PATHOLOGY: No RADIOLOGY DEPARTMENT: CT; Exam(s) Completed: Cardiac PERIPHERAL IV DATA: Site assessment: Clean,Dry and Intact, Site disposition Discontinued SIGNED BY: RT Nemo(Julio) June 26, 2023 3:09 PM documented in this encounterCleveland Clinic [facility]05-08-2024 NoteHNO ID: [id number] Author: ANN BELLO RN Service: Radiology Author [...] Storm DATE: June 26, 2023 TIME: 2:21 [facility]05-08-2024 NoteHNO ID: [id number] Author: COBY COLLADO RT(R) Service: Radiology Author [...] PATIENT PRESENTS WITH AN IMPLANTABLE OR ATTACHED PHYSICIAN CHIEF OF PATHOLOGY: No RADIOLOGY DEPARTMENT: CT; Exam(s) Completed: Cardiac PERIPHERAL IV DATA: Site assessment: Clean,Dry and Intact, Site disposition Discontinued SIGNED BY: RT Nemo(R) June 26, 2023 3:09 [facility]04-24-2024 Telephone encounter Note * Telephone Encounter - January Clark RN - 06/12/2023 5:10 PM EDT Patient returned call and accepted sooner procedure date of Saturday07/03/[address] Rodarte. Reviewed medication instructions with patient, patient stated understanding. Please reschedule pre op appointments to within 30 days prior of procedure. January Clark RN, RN [facility]04-24-2024 Miscellaneous Notes* Telephone Encounter - January Clark [...] January Clark RN, RN documented in this encounterCleveland Clinic [facility]04-24-2024 Telephone encounter Note * Telephone Encounter - January Clark RN - 06/12/2023 3:51 PM EDT Due to change in Dr. Rodarte's schedule, called patient and left message offering sooner date of Saturday07/03/23. Awaiting return call from patient. January Clark RN, RN [facility]04-05-2024 Miscellaneous Notes* Telephone Encounter - January Clark [...] Lab Procedure requested: Ablations PVI ablation CPT 90309 Anticoagulation Status: Eliquis (apixaban) Requesting Physician: Bear [...] 16, 2023 9:39 AM documented in this encounterCleveland Clinic [facility]03-14-2024 Miscellaneous Notes* Telephone Encounter - Terri Spears RN - 05/02/2023 2:28 PM EDT Criselda Storm returned my phone call. I reviewed the below with the patient. She would like to proceed with the ablation procedure. I will update Dr Mooney. Terri Spears RN * Telephone Encounter - Terri Spears RN - 05/02/2023 2:21 PM EDT I called Criselda Storm to review her Robinhoodhart message and her recent Echo results from 04/12/23. The echo showed significant improved in her LVEF (58%) with catholic of NSR. I reviewed this with Dr Rodarte who favors an ablation (AF and AFL). I called to review with the patent but there was no answer. Left VM. Terri Spears RN documented in this encounterCleveland Clinic [facility]02-20-2024 History of Present illness Narrative* Bear Rodarte MD - 04/09/2023 9:45 AM EST Images from the original note were not included. [facility] Department of Cardiovascular Medicine SECTION OF CARDIAC PACING and ELECTROPHYSIOLOGY OUTPATIENT VISIT DATE April 09, 2023 OUTPATIENT VISIT TYPE NEW PRIMARY CARE PHYSICIAN: Rachna Acosta [address] [place] [address] REFERRING PHYSICIAN: No referring provider defined for [...] Cancer Mother Stomach, age 40's Heart Father MA No Known Problems Sister Heart Brother MA other (no other known family hx of [...] inthe future. Would first like to confirm catholic of LV function with echo. Otherwise plan [...] INFORMATION: Bear Rodarte MD documented in this encounterCleveland Clinic [facility]01-04-2024 Procedure [facility]01-04-2024 Procedure [facility]01-02-2024 History and physical note Author Marcelo ThomasPremier Health [facility] February 19, 2023 6:48am Note Date/Time February 14, 2023 1:41pm [facility] Medical Records Department [address] [place] [id number] History & Physical Exam 02/14/23 1337 MR#: [id number] Acct: [id number] Name: CRISELDA STORM Rep #:[id number] : 1945 77 From: Marcelo Berry MD PCP: Dr. 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 Marcelo Berry MD; Dr. Rachna Acosta DO~ Signed [facility] Work Phone: [phone]) 699-647305-02-2023 History of Present illness Narrative* Abhishek Andrews MD - 06/19/2022 2:08 PM EDT [facility] [address] [facility] [place] [address] [facility] [address] Dept: [phone] Abhishek Andrews MD Criselda Storm 77 y.o. female Patient presents with a chief complaint of [place] pt just had [facility] at [facility] ([facility] Pt/ prev pt at [place]/Hearing test showed right ear was not good [...] Hematological: Negative. Psychiatric/Behavioral: Negative. documented in this [id number] Miscellaneous Notes* Letter - Mammography Coordinator - 09/29/2021 1:48 PM EDT September 29, 2021 PID: [id number] Criselda Storm [address] [place] [address] Dear Ms. Storm, We are pleased to [...] report will be kept on file at [facility] as part of your permanent medical record and are available for your continuing care. Thank you for allowing us to help in meeting your health care needs. Sincerely, Dr. To Interpreting Radiologist [facility] (Normal over 40) documented in this encounterCleveland Clinic [facility]08-12-2022 History of Present illness Narrative* RT Miguel(R) [...] 29, 2021 10:50 AM documented in this encounterCleveland Clinic Marymount HospitalEvaluation noteNo assessment information availableWSycamore Medical Center Work Phone: Evaluation note* Diagnosis Sensorineural hearing loss, bilateral- Primary Impacted cerumen of right ear Impacted cerumen Impaired auditory discrimination, right documented [facility] encounter [facility] Diagnosis Onset Date Resolution Status Atrial flutter acute CHF (congestive heart failure), NYHA class III acute [facility] Work Phone: Evaluation note* Diagnosis Onset Date Resolution Status Atrial flutter acute CHF (congestive heart failure), NYHA class III acute Atrial flutter acute Non-ischemic cardiomyopathy acute Atrial flutter acute Non-ischemic cardiomyopathy [facility] Work Phone: Evaluation note* Diagnosis Onset Date Resolution Status Atrial flutter acute Non-ischemic cardiomyopathy acute Atrial flutter acute Non-ischemic cardiomyopathy acute Atrial flutter acute Non-ischemic cardiomyopathy [facility] Work Phone: Evaluation note* Diagnosis Atrial fibrillation, persistent (HCC)- Primary Atrial fibrillation Dilated cardiomyopathy (HCC) Other primary cardiomyopathies documented in this encounter [facility] note* Diagnosis Atrial fibrillation, persistent (HCC)- Primary Atrial fibrillation documented in this encounter [facility] note* Diagnosis Persistent atrial fibrillation (HCC)- Primary Atrial fibrillation Nonischemic cardiomyopathy (HCC) Other primary cardiomyopathies On amiodarone therapy Paroxysmal atrial fibrillation (HCC) Atrial fibrillation documented in this encounter [facility] note* Diagnosis Atrial fibrillation, persistent (HCC) Atrial fibrillation Paroxysmal atrial fibrillation (HCC) Atrial fibrillation documented in this encounter [facility] note* Diagnosis AF (paroxysmal atrial fibrillation) (HCC)- Primary Atrial fibrillation documented in this encounter [facility] note* Diagnosis Typical atrial flutter (HCC)- Primary Atrial flutter Persistent atrial fibrillation (HCC) Atrial fibrillation On apixaban therapy Mixed hyperlipidemia documented in this encounter [facility] note* Diagnosis Atrial fibrillation, persistent (HCC)- Primary Atrial fibrillation documented in this encounter [facility] note* Diagnosis Pleural effusion on left- Primary Unspecified pleural effusion Chronic combined systolic (congestive) and diastolic (congestive) heart failure (HCC) Atrial fibrillation, unspecified type (HCC) documented in this encounter [facility] note* Diagnosis Recurrent pleural effusion documented in this encounter [facility] note* Diagnosis Recurrent pleural effusion- Primary Pleural effusion on left Unspecified pleural effusion documented in this encounter [facility] Discharge instructionsAmbulatory Orders* Electrophysiology Location: [facility] Work Phone: Reason for referral (narrative)* Outpatient Procedure (Routine) - Authorized Specialty Diagnoses / Procedures Referred By Contac t Referred To Contact [facility] Diagnoses Atrial fibrillation, persistent (HCC) Procedures ECG COMPLETE ECG ROUTINE ECG W/LEAST 12 LDS W/I&R Bear Rodarte MD [address] [place] [address] [facility] [address] [place] [address] Referral ID Status Reason Start Date Expiration Date Visits Requested Visits Authorized [id number] Authorized Auto-Generat ed Referral 04/11/2023 04/10/2024 1 1 [facility]Reason [facility] (narrative)No reason for referral information availableWSycamore Medical Center Work Phone: Reason for visit Narrative* Imaging (Routine) - Closed Specialty Diagnoses / Procedures Referred By Patricia t Referred To Contact Radiology Diagnoses Recurrent pleural effusion Procedures CT chest w IV contrast Emeterio Malcolm DO [address] [place] [address] Phone: tel: fax: Referral ID Status Reason Start Date Expiration Date Visits Re quested Visits Authorized [id number] Closed 07/16/2024 07/16/2025 1 1 [facility] Health Summary Purpose Family History No Family History Records Found Relationship Condition Age at Onset Recorded Date/T elif father Myocardial infarction Unknown brother Myocardial infarction Unknown Advance Directives No Advanced Directives Records Found Advance Directive Response Recorded Date/ Time Advance Directives on File No Octob er 2022 6:48am Name of Medical Power of Lawnmower Mechanic coco carlos November 27, 2022 6:48am Advance Directives Yes November 27, 2022 6:48am Living Will Yes November 27 6:48am Power of Lawnmower Mechanic Yes November 27, 2022 6:48am Advance Directive Response Recorded Date/ Time Advance Directives on File No Novem 2022 7:29am Name of Medical Power of Lawnmower Mechanic Coco Massey- daughter January 15, 2023 7:29am Advance Directives Yes December 7:29am Living Will Yes January 15, 2 023 7:29am Power of Lawnmower Mechanic Yes January 15, 2023 7:29am Advance Directives on File No Octob er 2022 6:48am Name of Medical Power of Lawnmower Mechanic coco carlos November 27, 2022 6:48am Advance Directive Response Recorded Date/ Time Advance Directives on File No Novem 2022 7:29am Name of Medical Power of Lawnmower Mechanic Coco Massey- daughter January 15, 2023 7:29am Advance Directives on File No Janua ry 2023 11:21am Name of Medical Power of Lawnmower Mechanic Coco Massey- daughter February 21, 2023 11:21am Advance Directives Yes February 21, 2023 11:21am Living Will Yes February 21 11:21am Power of Lawnmower Mechanic Yes February 21, 2 024 11:21am Advance Directives on File No Octob 2022 6:48am Name of Medical Power of Lawnmower Mechanic coco carlos November 27, 2022 6:48am Advance Directive Response Recorded Date/ Time Living Will Yes February 21 12:21pm Do you have a Healthcare Power of Lawnmower Mechanic? Yes February 21, 2023 12:21pm Living Will Yes May 31, 2024 4:20pm Do you have a Healthcare Power of Lawnmower Mechanic? Yes May 31, 2024 4:20pm Name of Medical Power of Lawnmower Mechanic Coco May 31, 2024 4:20pm Advance Directives Yes February 21, 2023 12:21pm Advance Directive Response Recorded Date/ Time Living Will Yes May 31, 2024 4:20pm Do you have a Healthcare Power of Lawnmower Mechanic? Yes May 31, 2024 4:20pm Name of Medical Power of Lawnmower Mechanic Coco May 31, 2024 4:20pm Advance Directives Yes February 21, 2023 12:21pm Advance Directive Response Recorded Date/ Time Advance Directives Yes February 21, 2023 12:21pm Advance Directive Response Recorded Date/ Time Living Will Yes February 21 12:21pm Do you have a Healthcare Power of Lawnmower Mechanic? Yes February 21, 2023 12:21pm Advance Directives [...] 2024 12 :37pm 1 Y FU/MOVED FROM [facility] November 03 8:59am Reason for Visit Admit [...] 2024 12 :37pm 1 Y FU/MOVED FROM [facility] November 03 8:59am INT XRAY ORDER November [...] UP APPT ORDER Bear Rodarte MD [address] [place] [address] Referral ID Status Reason Start Date Expiration Date Visits Requested Visits Authorized [id number] Ref Not Required PCP Requested Referral 07/08/2023 04/08/2024 1 1 Specialty Diagnoses / Procedures Referred By Patricia dunn Referred To [facility] Diagnoses Atrial fibrillation, persistent (HCC) Procedures ECHO ECHO TTHRC R-T 2D W/WOM-MODE COMPL SPEC&COLR D Bear Rodarte MD [address] [place] [address] [facility] [address] [address] Referral ID Status Reason Start Date Expiration Date Visits Requested Visits Authorized [id number] Authorized Auto-Generat ed Referral 04/09/2023 04/08/2024 1 1 Specialty Diagnoses / Procedures Referred By Contac t Referred To Contact [facility] [place] Procedures CARDIOVASCULAR MEDICINE OP FOLLOW UP APPT ORDER Tisha Araujo RETAIL DIRECTOR.RESEARCH DIRECTOR [address] [place] [address] [address] Referral ID Status Reason Start Date Expiration Date Visits Requested Visits Authorized [id number] Ref Not Required PCP Requested Referral 06/26/2023 06/25/2024 1 1 Specialty Diagnoses / Procedures Referred By Contac t Referred To Contact CT IMAGING Diagnoses Atrial fibrillation, persistent (HCC) Procedures CT PULMONARY VEIN W IVCON CT HEART CONTRAST EVAL CARDIAC STRUCTURE&MORPH Bear Rodarte MD [address] [place] [address] Ct Imaging [id number] Referral ID Status Reason Start Date Expiration Date V isits Requested Visits Authorized [id number] Closed Auto-Generate d Referral 05/24/2023 06/22/2024 1 1 Specialty Diagnoses / Procedures Referred By Contac t Referred To Contact [facility] [place] Diagnoses Typical atrial flutter (HCC) Persistent atrial fibrillation (HCC) On apixaban therapy Procedures CARDIOVASCULAR MEDICINE OP FOLLOW UP APPT ORDER Luis F Bravo, RETAIL DIRECTOR.RESEARCH DIRECTOR [address] [place] [address] [facility] [address] [address] Referral ID Status Reason Start Date Expiration Date Visits Requested Visits Authorized [id number] Ref Not Required PCP Requested Referral 10/03/2023 10/02/2024 1 1 Referral ID Status Reason Start Date Expiration Date Visits Requested Visits Authorized [id number] Pending Review Auto-Generat ed Referral 05/24/2023 06/22/2024 1 1 Specialty Diagnoses / Procedures Referred By Patricia t Referred To Contact [facility] Diagnoses Atrial fibrillation, persistent (HCC) Procedures ECG COMPLETE ECG ROUTINE ECG W/LEAST 12 LDS W/I&R Bear Rodarte MD [address] [place] [address] [facility] [place] [address] [place] [address] Referral ID Status Reason Start Date Expiration Date Visits Requested Visits Authorized [id number] Pending Review Auto-Generat ed Referral 05/24/2023 05/23/2024 1 1 Additional Source Comments INFORMATION SOURCE (unrecogn ized section and content) DATE CREATED AUTHOR 02/10/2018 [facility] DATE CREATED AUTHOR AUTHOR'S ORGANIZ ATION 09/07/2019 [facility]ical Center DATE CREATED AUTHOR AUTHOR'S ORGANIZ ATION 06/25/2022 [facility] DATE CREATED AUTHOR AUTHOR'S ORGANIZ ATION 05/03/2024 [facility] DATE CREATED AUTHOR AUTHOR'S ORGANIZ ATION 08/08/2024 [facility] DATE CREATED AUTHOR AUTHOR'S ORGANIZ ATION 12/30/2024 [facility] Source Comments (unrecognize d section and content) In the event this informatio n is protected by the Federal Confidentiality of Alcohol and Drug Abuse Patient Records regulations: The Federal rules restrict any use of the information to criminally investigate or prosecute any alcohol or drug abuse patient.[facility] HospitalIn the event this information is protected by the Federal Confidentiality of Alcohol and Drug Abuse Patient Records regulations: The Federal rules restrict any use of the information to criminally investigate or prosecute any alcohol or drug abuse patient.[facility] HospitalIn the event this information is protected by the Federal Confidentiality of Alcohol and Drug Abuse Patient Records regulations: The Federal rules restrict any use of the information to criminally investigate or prosecute any alcohol or drug abuse patient.[facility] HospitalIn the event this information is protected by the Federal Confidentiality of Alcohol and Drug Abuse Patient Records regulations: The Federal rules restrict any use of the information to criminally investigate or prosecute any alcohol or drug abuse patient.[facility] HospitalIn the event this information is protected by the Federal Confidentiality of Alcohol and Drug Abuse Patient Records regulations: The Federal rules restrict any use of the information to criminally investigate or prosecute any alcohol or drug abuse patient.[facility] HospitalIn the event this information is protected by the Federal Confidentiality of Alcohol and Drug Abuse Patient Records regulations: The Federal rules restrict any use of the information to criminally investigate or prosecute any alcohol or drug abuse patient.[facility] HospitalIn the event this information is protected by the Federal Confidentiality of Alcohol and Drug Abuse Patient Records regulations: The Federal rules restrict any use of the information to criminally investigate or prosecute any alcohol or drug abuse patient.[facility] HospitalIn the event this information is protected by the Federal Confidentiality of Alcohol and Drug Abuse Patient Records regulations: The Federal rules restrict any use of the information to criminally investigate or prosecute any alcohol or drug abuse patient.[facility] HospitalIn the event this information is protected by the Federal Confidentiality of Alcohol and Drug Abuse Patient Records regulations: The Federal rules restrict any use of the information to criminally investigate or prosecute any alcohol or drug abuse patient.[facility] HospitalIn the event this information is protected by the Federal Confidentiality of Alcohol and Drug Abuse Patient Records regulations: The Federal rules restrict any use of the information to criminally investigate or prosecute any alcohol or drug abuse patient.[facility] HospitalIn the event this information is protected by the Federal Confidentiality of Alcohol and Drug Abuse Patient Records regulations: The Federal rules restrict any use of the information to criminally investigate or prosecute any alcohol or drug abuse patient.[facility] HospitalIn the event this information is protected by the Federal Confidentiality of Alcohol and Drug Abuse Patient Records regulations: The Federal rules restrict any use of the information to criminally investigate or prosecute any alcohol or drug abuse patient.[facility] HospitalIn the event this information is protected by the Federal Confidentiality of Alcohol and Drug Abuse Patient Records regulations: The Federal rules restrict any use of the information to criminally investigate or prosecute any alcohol or drug abuse patient.[facility] HospitalIn the event this information is protected by the Federal Confidentiality of Alcohol and Drug Abuse Patient Records regulations: The Federal rules restrict any use of the information to criminally investigate or prosecute any alcohol or drug abuse patient.[facility] HospitalIn the event this information is protected by the Federal Confidentiality of Alcohol and Drug Abuse Patient Records regulations: The Federal rules restrict any use of the information to criminally investigate or prosecute any alcohol or drug abuse patient.[facility] HospitalIn the event this information is protected by the Federal Confidentiality of Alcohol and Drug Abuse Patient Records regulations: The Federal rules restrict any use of the information to criminally investigate or prosecute any alcohol or drug abuse patient.[facility] HospitalIn the event this information is protected by the Federal Confidentiality of Alcohol and Drug Abuse Patient Records regulations: The Federal rules restrict any use of the information to criminally investigate or prosecute any alcohol or drug abuse patient.[facility] HospitalIn the event this information is protected by the Federal Confidentiality of Alcohol and Drug Abuse Patient Records regulations: The Federal rules restrict any use of the information to criminally investigate or prosecute any alcohol or drug abuse patient.[facility] HospitalIn the event this information is protected by the Federal Confidentiality of Alcohol and Drug Abuse Patient Records regulations: The Federal rules restrict any use of the information to criminally investigate or prosecute any alcohol or drug abuse patient.[facility] HospitalIn the event this information is protected by the Federal Confidentiality of Alcohol and Drug Abuse Patient Records regulations: The Federal rules restrict any use of the information to criminally investigate or prosecute any alcohol or drug abuse patient.[facility] HospitalIn the event this information is protected by the Federal Confidentiality of Alcohol and Drug Abuse Patient Records regulations: The Federal rules restrict any use of the information to criminally investigate or prosecute any alcohol or drug abuse patient.[facility] HospitalIn the event this information is protected by the Federal Confidentiality of Alcohol and Drug Abuse Patient Records regulations: The Federal rules restrict any use of the information to criminally investigate or prosecute any alcohol or drug abuse patient.[facility] HospitalIn the event this information is protected by the Federal Confidentiality of Alcohol and Drug Abuse Patient Records regulations: The Federal rules restrict any use of the information to criminally investigate or prosecute any alcohol or drug abuse patient.[facility] HospitalIn the event this information is protected by the Federal Confidentiality of Alcohol and Drug Abuse Patient Records regulations: The Federal rules restrict any use of the information to criminally investigate or prosecute any alcohol or drug abuse patient.[facility] HospitalIn the event this information is protected by the Federal Confidentiality of Alcohol and Drug Abuse Patient Records regulations: The Federal rules restrict any use of the information to criminally investigate or prosecute any alcohol or drug abuse patient.[facility] HospitalIn the event this information is protected by the Federal Confidentiality of Alcohol and Drug Abuse Patient Records regulations: The Federal rules restrict any use of the information to criminally investigate or prosecute any alcohol or drug abuse patient.[facility] HospitalIn the event this information is protected by the Federal Confidentiality of Alcohol and Drug Abuse Patient Records regulations: The Federal rules restrict any use of the information to criminally investigate or prosecute any alcohol or drug abuse patient.[facility] HospitalIn the event this information is protected by the Federal Confidentiality of Alcohol and Drug Abuse Patient Records regulations: The Federal rules restrict any use of the information to criminally investigate or prosecute any alcohol or drug abuse patient.[facility] HospitalIn the event this information is protected by the Federal Confidentiality of Alcohol and Drug Abuse Patient Records regulations: The Federal rules restrict any use of the information to criminally investigate or prosecute any alcohol or drug abuse patient.[facility] HospitalIn the event this information is protected by the Federal Confidentiality of Alcohol and Drug Abuse Patient Records regulations: The Federal rules restrict any use of the information to criminally investigate or prosecute any alcohol or drug abuse patient.[facility] HospitalIn the event this information is protected by the Federal Confidentiality of Alcohol and Drug Abuse Patient Records regulations: The Federal rules restrict any use of the information to criminally investigate or prosecute any alcohol or drug abuse patient.[facility] HospitalIn the event this information is protected by the Federal Confidentiality of Alcohol and Drug Abuse Patient Records regulations: The Federal rules restrict any use of the information to criminally investigate or prosecute any alcohol or drug abuse patient.[facility] HospitalIn the event this information is protected by the Federal Confidentiality of Alcohol and Drug Abuse Patient Records regulations: The Federal rules restrict any use of the information to criminally investigate or prosecute any alcohol or drug abuse patient.[facility] Care Teams (unrecognized sec tion and content) Construction Equipment Operator Relationship Specialty Start Date End Date Yovana Pierre MD [address] [facility] [address] [place], [place] [id number] PCP - General Family Practice 11/15/15 Vanessa Champagne MD Hematology/Oncology 03/01/15 Construction Equipment Operator Relationship Specialty Start Date End Date Yovana Pierre MD [address] [facility] [address] [place], [place] [id number] PCP - General Family Practice 11/15/15 Vanessa Champagne MD Hematology/Oncology 03/01/15 Construction Equipment Operator Relationship Specialty Start Date End Date Rachna Acosta DO [address] [place] [address] PCP - General Family Medicine 05/29/22 Team [...] Dr. Magalie Fernandez MD Attending Provider Active Construction Equipment Operator Relationship Specialty Start Date End Date Rahcna Acosta DO [address] [facility] [place] [address] PCP - General Family Medicine 03/18/23 Vanessa Champagne MD Hematology/Oncology 03/01/15 Marcelo Berry MD [address] [place] [address] Referring Cardiology 04/09/23 Construction Equipment Operator Relationship Specialty Start Date End Date Rachna Acosta DO [address] [place] [address] PCP - General Family Medicine 03/18/23 Vanessa Champagne MD Hematology/Oncology 03/01/15 Marcelo Berry MD [address] [place] [address] Referring Cardiology 04/09/23 Construction Equipment Operator Relationship Specialty Start Date End Date Rachna Acosta DO [address] [place] [place] [address] PCP - General Family Medicine 03/18/23 Vanessa Champagne MD Hematology/Oncology 03/01/15 Marcelo Berry MD [address] [place] [address] Referring Cardiology 04/09/23 Construction Equipment Operator Relationship Specialty Start Date End Date Rachna Acosta DO [address] [place] [address] PCP - General Family Medicine 03/18/23 Vanessa Champagne MD Hematology/Oncology 03/01/15 Marcelo Berry MD [address] [place], [place] [address]- Referring Cardiology 04/09/23 Construction Equipment Operator Relationship Specialty Start Date End Date Dave Rachna RobersonDO [address] [place] [address] PCP - General Family Medicine 03/18/23 Vanessa Champagne MD Hematology/Oncology 03/01/15 Marcelo Berry MD [address] [place], [place] [phone] Referring Cardiology 04/09/23 Construction Equipment Operator Relationship Specialty Start Date End Date DaveAshleya DO [place] [address] [place] [address] PCP - General Family Medicine 03/18/23 Vanessa Champagne MD Hematology/Oncology 03/01/15 Marcelo Berry MD [address] [place] [address] Referring Cardiology 04/09/23 Construction Equipment Operator Relationship Specialty Start Date End Date Rachna Acosta DO [address] [place] [address] PCP - General Family Medicine 03/18/23 Vanessa Champagne MD Hematology/Oncology 03/01/15 Marcelo Berry MD [address] [place] [address] Referring Cardiology 04/09/23 Construction Equipment Operator Relationship Specialty Start Date End Date Rachna Acosta DO [address] [place] [address] PCP - General Family Medicine 03/18/23 Vanessa Champagne MD Hematology/Oncology 03/01/15 Marcelo Berry MD [address] [place] [address] Referring Cardiology 04/09/23 Construction Equipment Operator Relationship Specialty Start Date End Date Rachna Acosta DO [address] [place] [address] PCP - General Family Medicine 03/18/23 Vanessa Champagne MD Hematology/Oncology 03/01/15 Marcelo Berry MD [address] [place], [place] [address] Referring Cardiology 04/09/23 Construction Equipment Operator Relationship Specialty Start Date End Date Rachna Acosta DO [address] [place] [address] PCP - General Family Medicine 03/18/23 Vanessa Champagne MD Hematology/Oncology 03/01/15 Marcelo Berry MD [address] [place] [address] Referring Cardiology 04/09/23 Construction Equipment Operator Relationship Specialty Start Date End Date Rachna Acosta DO [address] [place] [address] PCP - General Family Medicine 03/18/23 Vanessa Champagne MD Hematology/Oncology 03/01/15 Marcelo Berry MD [address] [place] [address] Referring Cardiology 04/09/23 Construction Equipment Operator Relationship Specialty Start Date End Date Rachna Acosta DO [address] [place] [address] PCP - General Family Medicine 03/18/23 Vanessa Champagne MD Hematology/Oncology 03/01/15 Marcelo Berry MD [address] [place] [address] Referring Cardiology 04/09/23 Construction Equipment Operator Relationship Specialty Start Date End Date Rachna Acosta DO [address] [place] [address] PCP - General Family Medicine 03/18/23 Vanessa Champagne MD Hematology/Oncology 03/01/15 Marcelo Berry MD [address] [place], [place] [address] Referring Cardiology 04/09/23 Construction Equipment Operator Relationship Specialty Start Date End Date Rachna Acosta DO [address] [place] [address] PCP - General Family Medicine 03/18/23 Vanessa Champagne MD Hematology/Oncology 03/01/15 Marcelo Berry MD [address] [address] Referring Cardiology 04/09/23 Team Status: Active Member [...] June 24, 2024 End: June 24, 2024 Construction Equipment Operator Relationship Specialty Start Date End Date Ashley Acostaa [place] [address] [place] [phone] PCP - General Family Medicine 03/04/23 Construction Equipment Operator Relationship Specialty Start Date End Date Dave Rachna Roberson [address] [place] [phone] PCP - General Family Medicine 03/04/23 Construction Equipment Operator Relationship Specialty Start Date End Date Ashley Acostakarol Roberson [address] [place] [phone] PCP - General Family Medicine 03/04/23 Team [...] 2024 End: August 18, 2024 Cinthia Kim FINISHED CIGAR MAKER, FINISHED CIGAR MAKER-C Attending Provider Active S tart: August 18, [...] Active Start: August 18, 2024 Cinthia Kim FINISHED CIGAR MAKER, FINISHED CIGAR MAKER-C Attending Provider Active S tart: August 18, 2024 Cinthia Kim FINISHED CIGAR MAKER, FINISHED CIGAR MAKER-C Referring Provider Active S tart: August 18, 2024 Team Status: Inactive Member Role/Relationship Status Dates Dr. Rachna Acosta DO Primary Care Provider Active Start: August 18, 2024 End: August 18, 2024 Cinthia Kim FINISHED CIGAR MAKER, FINISHED CIGAR MAKER-C Attending Provider Active S tart: August 18, 2024 End: August 18, 2024 Cinthia Kim FINISHED CIGAR MAKER, FINISHED CIGAR MAKER-C Referring Provider Active S tart: August 18, 2024 End: August 18, 2024 Team Status: Inactive Member Role/Relationship Status Dates Dr. Rachna Acosta DO Primary Care Provider Active Start: September 01, 2024 End: September 01, 2024 Cinthia Kim FINISHED CIGAR MAKER, FINISHED CIGAR MAKER-C Attending Provider Active S tart: September 01, 2024 End: September 01, 2024 Cinthia Kim FINISHED CIGAR MAKER, FINISHED CIGAR MAKER-C Referring Provider Active S tart: September 01, [...] 2024 End: August 18, 2024 Cinthia Kim FINISHED CIGAR MAKER, FINISHED CIGAR MAKER-C Attending Provider Active S tart: August 18, 2024 End: August 18, 2024 Team Status: Inactive Member Role/Relationship Status Dates Dr. Rachna Acosta DO Primary Care Provider Active Start: August 18, 2024 End: August 18, 2024 Cinthia Kim FINISHED CIGAR MAKER, FINISHED CIGAR MAKER-C Attending Provider Active S tart: August 18, 2024 End: August 18, 2024 Cinthia Kim FINISHED CIGAR MAKER, FINISHED CIGAR MAKER-C Referring Provider Active S tart: August 18, 2024 End: August 18, 2024 Team Status: Inactive Member Role/Relationship Status Dates Dr. Rachna Acosta DO Primary Care Provider Active Start: September 01, 2024 End: September 01, 2024 Cinthia Kim FINISHED CIGAR MAKER, FINISHED CIGAR MAKER-C Attending Provider Active S tart: September 01, 2024 End: September 01, 2024 Cinthia H Roof FINISHED CIGAR MAKER, FINISHED CIGAR MAKER-C Referring Provider Active S tart: September 01, 2024 End: September 01, 2024 Team Status: Inactive Member Role/Relationship Status Dates Dr. Rachna Acosta DO Primary Care Provider Active Start: October 01, 2024 End: October 01, 2024 Cinthia Kim FINISHED CIGAR MAKER, FINISHED CIGAR MAKER-C Attending Provider Active S tart: October 01, 2024 End: October 01, 2024 Cinthia Kim FINISHED CIGAR MAKER, FINISHED CIGAR MAKER-C Referring Provider Active S tart: October 01, 2024 End: October 01, 2024 Team Status: Inactive Member Role/Relationship Status Dates Dr. Rachna Acosta DO Primary Care Provider Active Start: August 14, 2024 End: August 14, 2024 REINALDO STOMR Attending Provider Active Start: August 14, 2024 [...] 2024 End: August 18, 2024 Cinthia Kim FINISHED CIGAR MAKER, FINISHED CIGAR MAKER-C Attending Provider Active S tart: August 18, 2024 End: August 18, 2024 Team Status: Inactive Member Role/Relationship Status Dates Dr. Rachna Acosta DO Primary Care Provider Active Start: August 18, 2024 End: August 18, 2024 Cinthia Kim FINISHED CIGAR MAKER, FINISHED CIGAR MAKER-C Attending Provider Active S tart: August 18, 2024 End: August 18, 2024 Cinthia Kim FINISHED CIGAR MAKER, FINISHED CIGAR MAKER-C Referring Provider Active S tart: August 18, 2024 End: August 18, 2024 Team Status: Inactive Member Role/Relationship Status Dates Dr. Rachna Acosta DO Primary Care Provider Active Start: September 01, 2024 End: September 01, 2024 Cinthia Kim FINISHED CIGAR MAKER, FINISHED CIGAR MAKER-C Attending Provider Active S tart: September 01, 2024 End: September 01, 2024 Cinthia Kim FINISHED CIGAR MAKER, FINISHED CIGAR MAKER-C Referring Provider Active S tart: September 01, 2024 End: September 01, 2024 Team Status: Inactive Member Role/Relationship Status Dates Dr. Rachna Acosta DO Primary Care Provider Active Start: October 01, 2024 End: October 01, 2024 Cinthia Kim FINISHED CIGAR MAKER, FINISHED CIGAR MAKER-C Attending Provider Active S tart: October 01, 2024 End: October 01, 2024 Cinthia Kim FINISHED CIGAR MAKER, FINISHED CIGAR MAKER-C Referring Provider Active S tart: October 01, 2024 End: October 01, 2024 Team Status: Inactive Member Role/Relationship Status Dates Dr. Rachna Acosta DO Primary Care Provider Active Start: November 03, 2024 End: November 03, 2024 Dr. Rachna Acosta DO Referring Provider Active St art: November 03, 2024 End: November 03, 2024 Cinthia Kim FINISHED CIGAR MAKER, FINISHED CIGAR MAKER-C Attending Provider Active S tart: November 03, [...] 2024 End: August 18, 2024 Cinthia Kim FINISHED CIGAR MAKER, FINISHED CIGAR MAKER-C Attending physician Active Start: August 18, 2024 End: August 18, 2024 Team Status: Inactive Member Role/Relationship Status Dates Dr. Rachna Acosta DO Primary care physician Active Start: August 18, 2024 End: August 18, 2024 Cinthia Kim FINISHED CIGAR MAKER, FINISHED CIGAR MAKER-C Attending physician Active Start: August 18, 2024 End: August 18, 2024 Cinthia Kim FINISHED CIGAR MAKER, FINISHED CIGAR MAKER-C Referring Provider Active S tart: August 18, 2024 End: August 18, 2024 Team Status: Inactive Member Role/Relationship Status Dates Dr. Rachna Acosta DO Primary care physician Active Start: September 01, 2024 End: September 01, 2024 Cinthia Kim FINISHED CIGAR MAKER, FINISHED CIGAR MAKER-C Attending physician Active Start: September 01, 2024 End: September 01, 2024 Cinthia Kim FINISHED CIGAR MAKER, FINISHED CIGAR MAKER-C Referring Provider Active S tart: September 01, 2024 End: September 01, 2024 Team Status: Inactive Member Role/Relationship Status Dates Dr. Rachna Acosta DO Primary care physician Active Start: October 01, 2024 End: October 01, 2024 Cinthia Kim FINISHED CIGAR MAKER, FINISHED CIGAR MAKER-C Attending physician Active Start: October 01, 2024 End: October 01, 2024 Cinthia Kim FINISHED CIGAR MAKER, FINISHED CIGAR MAKER-C Referring Provider Active S tart: October 01, 2024 End: October 01, 2024 Team Status: Inactive Member Role/Relationship Status Dates Dr. Rachna Acosta DO Primary care physician Active Start: November 03, 2024 End: November 03, 2024 Dr. Rachna Acosta DO Referring Provider Active St art: November 03, 2024 End: November 03, 2024 Cinthia Kim FINISHED CIGAR MAKER, FINISHED CIGAR MAKER-C Attending physician Active Start: November 03, 2024 End: November 03, 2024 Team Status: Inactive Member Role/Relationship Status Dates Dr. Rachna Acosta DO Primary care physician Active Start: November 03, 2024 End: November 03, 2024 Cinthia Kim FINISHED CIGAR MAKER, FINISHED CIGAR MAKER-C Attending physician Active Start: November 03, 2024 End: November 03, 2024 Cinthia Kim FINISHED CIGAR MAKER, FINISHED CIGAR MAKER-C Referring Provider Active S tart: November 03, [...] STRUCTURE&MORPH Bear Rodarte MD [address] [place] [address] [place] [address] Referral ID Status Reason Start Date Expiration Date V isits Requested Visits Authorized [id number] Closed Auto-Generate d Referral 05/24/2023 06/22/2024 1 1 Reason Comments Patient Education EPS - PVI/ AFL RFA Reason Comments Follow Up Phone Call Relate care dischar ge follow [id number] Reason Comments Transmitter 90 days Reason [...] BE BASED ON THE PRIMARY CLINICAL RECORDS. [employer] [facility]. provides no warranty or guarantee of the accuracy or completeness of information in this document.
[2025-02-12] MEDS: Lidocaine 5% Patch 1 PATCH TOPICAL ×2 (01:19→08:36)
[2025-02-12] MEDS: 0.9% Saline Lock 10 ML Syringe IV ×2 (03:32→06:50)
[2025-02-12 07:07] LABS: Hematocrit 27.4 % (37-47); Hemoglobin 8.7 g/dL (12.0-15.0); Immature Granulocytes Count 0.030 X10^3/uL (0.0-0.0); Mean Corp Hgb Conc 31.8 g/dL (32-36); Mean Corpuscular Volume 94.8 fL (81-99); Mean Platelet Vol. 10.3 fl (6.2-12.0); NRBC Flagged by Analyzer 0 % (0-5); POSITIVE DIFFERENTIAL YES; Platelet Count 404 K/mm3 (150-450); RBC Distribution Width CV 15.2 % (11.6-14.6); RBC Distribution Width SD 52.4 fl (35.1-43.9); Red Blood Count 2.89 M/mm3 (4.2-5.4); White Blood Count 9.1 K/mm3 (4.4-11.0)
--- NOTE | 2025-02-12 07:35 | PN.HOSP_ITS ---
Subjective Subjective Feels ok until her arm would need to be moved. Objective Data Objective Data Vital Signs: Vital Signs Temp Pulse Resp BP Pulse Ox O2 Del Method 36.6 C 76 16 98/67 96 Room Air 02/12/25 05:44 02/12/25 05:44 02/12/25 05:44 02/12/25 05:44 02/12/25 05:44 02/12/25 05:44 Oxygen Delivery Method Room Air Weight: 48.7 kg Body Mass Index (BMI) 18.4 Intake & Output: Intake and Output for Last 24 Hours 02/10/25 02/11/25 02/12/25 23:59 23:59 23:59 Intake Total 250 / 250 Balance 250 / 250 Lab / Micro Data 02/12/25 05:24 02/11/25 20:18 Labs: Laboratory Results - last 24 hr 02/11/25 20:18: WBC 7.9, RBC 3.35 L, Hgb 10.1 L, Hct 32.0 L, MCV 95.5, MCH 30.1, MCHC 31.6 L, RDW Std Deviation 53.1 H, RDW Coeff of Ingris 15.3 H, Plt Count 419, MPV 10.0, Immature Gran % (Auto) 0.400, Neut % (Auto) 83.8 H, Lymph % (Auto) 7.0 L, Rich % (Auto) 6.1, Eos % (Auto) 1.6, Baso % (Auto) 1.1 H, Absolute Neuts (auto) 6.6, Absolute Lymphs (auto) 0.55 L, Nucleated RBC % 0, Sodium 132 L, Potassium 4.4, Chloride 98, Carbon Dioxide 18.0 L, Anion Gap 17, BUN 30 H, Creatinine 1.09, Estim Creat Clear Calc 33.91 L, Est GFR (MDRD) Non-Af 52 L, B UN/Creatinine Ratio 27.4 H, Glucose 96, Calcium 8.8 02/12/25 05:24: WBC 9.1, RBC 2.89 L, Hgb 8.7 L, Hct 27.4 L, MCV 94.8, MCH 30.1, MCHC 31.8 L, RDW Std Deviation 52.4 H, RDW Coeff of Ingris 15.2 H, Plt Count 404, MPV 10.3, Immature Gran % (Auto) 0.300, Neut % (Auto) 84.6 H, Lymph % (Auto) 5.8 L, Rich % (Auto) 7.4, Eos % (Auto) 1.0, Baso % (Auto) 0.9, Absolute Neuts (auto) 7.7, Absolute Lymphs (auto) 0.53 L, Nucleated RBC % 0 Micro: Microbiology 02/11/25 22:37 Stool Stool Occult Blood (ISHMAEL) - Final Occult Blood Positive Radiography Diagnostic Testing: Radiology Impression Brain CT 02/11/25 20:25 IMPRESSION: 1. Trace punctate hyperdensities in the right frontal lobe questionable for artifactual versus trace intraparenchymal hemorrhage. Attention to short-term follow-up. 2. No acute transcortical infarct. 3. No acute fracture or dislocation in the cervical spine. Reading Location: [facility] Cervical Spine CT 02/11/25 20:25 IMPRESSION: 1. Trace punctate hyperdensities in the right frontal lobe questionable for artifactual versus trace intraparenchymal hemorrhage. Attention to short-term follow-up. 2. No acute transcortical infarct. 3. No acute fracture or dislocation in the cervical spine. Reading Location: [facility] Shoulder X-Ray 02/11/25 20:35 IMPRESSION: Acute displaced left humerus fracture along the surgical neck. Partially visualized pleural effusion. Reading Location: [facility] Brain CT 02/11/25 21:10 IMPRESSION: The previously seen punctate hyperdensities in the right frontal lobe are favored to be artifact. No CT evidence of acute intracranial hemorrhage, transcortical infarct, or significant mass effect. No other significant changes. Reading Location: [facility] Physical Exam Const alert and no apparent distress HEENT head/scalp atraumatic and moist oral mucous membranes Extremity Extremity Narrative: left arm without hematoma, ecchymosis. Psych affect normal Assessment & Plan Assessment/Plan (1) Closed fracture of left proximal humerus: QUALIFIERS: Encounter type: initial encounter Fracture morphology: unspecified fracture morphology Qualified Code(s): S42.A - Unspecified fracture of upper end of left humerus, initial encounter for closed fracture (2) Fall: QUALIFIERS: Encounter type: initial encounter Qualified Code(s): W19.XXXA - Unspecified fall, initial encounter (3) Anemia: QUALIFIERS: Anemia type: unspecified type Qualified Code(s): D 64.9 - Anemia, unspecified (4) Chronic anticoagulation: (5) Fecal occult blood test positive: (6) Recurrent left pleural effusion: (7) Non-ischemic cardiomyopathy: (8) Atrial flutter: QUALIFIERS: Atrial flutter type: unspecified Qualified Code(s): I 48.92 - Unspecified atrial flutter PLAN: Plan Left humerus fracture: * displaced * Sling, non-weight bearing and pain control. * ortho contacted in ED and informed ED physician that this would be non- operable. * Physical therapy and outpatient therapy. * check 25 hydroxy vitamin D. Fall: * Nothing suggest orthostasis but soft blood pressure and heart rate can definitely contribute. * head CT, neck unremarkable. Chronic conditions: * Anemia: Gradual decline in hemoglobin currently 10. On Eliquis. Positive fecal occult blood by ED. No symptoms or signs of active bleeding. Will check iron studies, folate and B12. Plan for outpatient follow-up * left effusion: No extensive workup can be found, just protein and LDH in the system and negative cytology. Was referred to [facility] cardiothoracic surgery, options were offered including chest tube, PleurX, decortication etc. but patient opted only to have repeat arthrocentesis if needed and she currently does not feel she is there yet * Cardiomyopathy:Compensated euvolemic, class II-III NYHA at baseline unknown if related to CHF or just deconditioning, EF improved 60% as of February, from 10 to 20% initially. Continue Entresto, beta-nba (currently weaned off because of low rate), Lasix. Aldactone was prescribed but patient did not take it * atrial Flutter: Ablation done in June 2023. Continue Eliquis for CVA prevention. Heart rate in the 60s, cardiology this month weaned metoprolol 50 mg twice daily to 50 mg once daily for 1 week then stopped it, then heart rate rebounded to 130 and daughter resumed full dose. Plan: Resume weaning, 25 mg twice daily for a week then 12.5 twice daily etc. daughter is instructed clearly on very slow gradual weaning VTE prophylaxis: not indicted as already on apixaban. DW patient's daughter. Awaiting on evaluation by therapy services to determine disposition. Dtr state that they have room that has recently been completed for the patient at their home. Charges/Coding Visit Charges Inpatient E&M: 83491 Subs Hosp L2
[2025-02-12] MEDS: Ensure Plus High Protein 120 ML LIQUID PO (08:34)
[2025-02-12] MEDS: APIXABAN 5 MG TABLET PO ×2 (08:34→21:49)
[2025-02-12] MEDS: SACUBITRIL/VALSARTAN 24/26 MG TABLET 1 EACH PO (08:35)
--- NOTE | 2025-02-12 11:21 | NURSING ---
This RN took over care at this time
[2025-02-12 11:37] LABS: Anion Gap 11 (7-18); BUN 28 mg/dL (4-19); BUN/Creat Ratio 30.1 RATIO (10-20); Calcium,Total 8.8 mg/dL (7.6-11.0); Carbon Dioxide 23.8 mmol/L (20.0-29.0); Chloride 99 mmol/L (96-106); Estimated Creatinine Clearance 39.17 ml/min (50-250); Ferritin 257 ng/mL (22-378); Glucose 76 mg/dL (70-99); Iron 25 ug/dL (50-170); Iron Binding Capacity,Total 242 ug/dL (250-450); Iron Binding Capacity,Unsat 217 ug/dL (228-428); Magnesium 2.4 mg/dL (1.5-2.2); Potassium 4.5 mmol/L (3.5-5.1); Vitamin B12 399 pg/mL (180-914)
--- NOTE | 2025-02-12 12:04 | CASEMGMT ---
Discharge Planning A list of HH providers including quality and resource use data and consistent with the patient's preferred geographic region, medical needs, and insurance network was created in [employer] Guide.? This list was provided to the RN DEEJAY. Yessy Jones, Discharge Planning Asst.
[2025-02-12 12:06] LABS: Vitamin D,25 Hydroxy 39.5 ng/mL (30-100)
--- NOTE | 2025-02-12 13:19 | CON.PCM_ITS ---
Assessment & Plan Assessment/Plan (1) Closed fracture of surgical neck of left humerus: QUALIFIERS: Encounter type: initial encounter Fracture morphology: 2-part Fracture alignment: displaced Qualified Code(s): S42.222A - 2-part displaced fracture of surgical neck of left humerus, initial encounter for closed fracture PLAN: Plan Patient does have a displaced left surgical neck proximal humerus fracture. She is neuro vastly intact and close. We did discuss treatment options and recommend and we will proceed with conservative treatment to the left upper extremity with sling. If movement causes too much pain she can be converted to a sling and swath if necessary. I do encourage her to straighten and flex her fingers and wrist to avoid stiffness and when pain allows probably over the next week to start some early elbow range of motion to avoid stiffness in this area. I explained to her the sling should not be too tight to cause proximal migration of the humeral shaft it is better to let the arm hang. She understands. I would like to see her back in the office in 2 weeks for repeat x-rays. HPI Consult Data Date of Consult: 02/12/25 HPI Narrative HPI Narrative: CRISELDA STORM, is a pleasant 79 [id number] F who presents after ground- level fall with injury to her left shoulder. She does have a medical history significant for but not limited to atrial flutter on Eliquis, congestive heart failure, nonischemic cardiomyopathy, bilateral pleural effusions. Patient was in her daughter's kitchen and lost her balance and fell backwards injuring her head and left shoulder. Of note she did have recent medication changes and issues with heart rate and blood pressure afterwards. She is not having any numbness or tingling or other complaints about the left upper extremity. [facility] Medical History Neuropathy Hyperlipidemia Vitamin D deficiency Osteoporosis Bilateral cataracts Non-ischemic cardiomyopathy History of bilateral breast cancer Bilateral pleural effusion Atrial flutter Home Medications ?Medication ?Instructions ?Recorded ?Last Taken ?Type handicap Placcard #1 ea 12/20/22 Unknown Rx sacubitril 24 mg-valsartan 26 mg 1 tab PO BID #180 tab s 02/26/24 Unknown Rx tablet (Entresto) apixaban 5 mg tablet (Eliquis) 5 mg PO BID #180 tabs 0 04/06/24 Unknown Rx empagliflozin 10 mg tablet 10 mg PO DAILY #30 tabs Unknown Rx (Jardiance) budesonide-formoterol HFA 160 2 puff inhalation BID MS N 11/03/24 Unknown History mcg-4.5 mcg/actuation aerosol shortness of breath or w heezing inhaler (Breyna) furosemide 40 mg tablet 40 mg PO DAILY weight gain 1 03/28/24 Unknown History spironolactone 25 mg tablet 25 mg PO DAILY #30 tabs Unknown Rx Held on 02/11/25. Instructions: for low BP metoprolol tartrate 50 mg tablet 50 mg PO BID 02/11/25 Unknown History Allergy/AdvReac Type Severity Reaction Status Date / Time No Known Allergies Allergy Verified 02/11/25 19:45 Family History Father Myocardial infarction Brother Myocardial infarction Surgical History Hx of atrioventricular node ablation History of thoracentesis (08/14/24) History of partial mastectomy of left breast History of open reduction and internal fixation (ORIF) procedure Social History household members: spouse housing: house Smoking Status: Former smoker how long ago did patient quit smokin years alcohol intake: current alcohol intake frequency: 0-2 drinks per day Alcohol type: wine substance use type: does not use caffeine: No Physical Exam Const alert, oriented x3 and no apparent distress General Appearance: cooperative and comfortable Extremity Extremity Narrative: Left upper extremity does have swelling there is no open wounds her compartments are soft she is neurovascular intact she has palpable radial pulse. She is able to abduct the fingers flex and extend the digits and wrist. Intact sensation to light touch. Lab / Micro Data 02/12/25 05:24 02/12/25 05:24 Labs: Laboratory Results - last 24 hr 02/11/25 20:18: WBC 7.9, RBC 3.35 L, Hgb 10.1 L, Hct 32.0 L, MCV 95.5, MCH 30.1, MCHC 31.6 L, RDW Std Deviation 53.1 H, RDW Coeff of Ingris 15.3 H, Plt Count 419, MPV 10.0, Immature Gran % (Auto) 0.400, Neut % (Auto) 83.8 H, Lymph % (Auto) 7.0 L, [place] % (Auto) 6.1, Eos % (Auto) 1.6, Baso % (Auto) 1.1 H, Absolute Neuts (auto) 6.6, Absolute Lymphs (auto) 0.55 L, Nucleated RBC % 0, Sodium 132 L, Potassium 4.4, Chloride 98, Carbon Dioxide 18.0 L, Anion Gap 17, BUN 30 H, Creatinine 1.09, Estim Creat Clear Calc 33.91 L, Est GFR (MDRD) Non-Af 52 L, B UN/Creatinine Ratio 27.4 H, Glucose 96, Calcium 8.8 02/12/25 05:24: WBC 9.1, RBC 2.89 L, Hgb 8.7 L, Hct 27.4 L, MCV 94.8, MCH 30.1, MCHC 31.8 L, RDW Std Deviation 52.4 H, RDW Coeff of Ingris 15.2 H, Plt Count 404, MPV 10.3, Immature Gran % (Auto) 0.300, Neut % (Auto) 84.6 H, Lymph % (Auto) 5.8 L, [place] % (Auto) 7.4, Eos % (Auto) 1.0, Baso % (Auto) 0.9, Absolute Neuts (auto) 7.7, Absolute Lymphs (auto) 0.53 L, Nucleated RBC % 0, Sodium 135, Potassium 4.5, Chloride 99, Carbon Dioxide 23.8, Anion Gap 11, BUN 28 H, Creatinine 0.91, Estim Creat Clear Calc 39.17 L, Est GFR (MDRD) Non-Af 64, BUN/Creatinine Ratio 30.1 H, Glucose 76, Calcium 8.8, Magnesium 2.4 H, Iron 25 L, TIBC 242 L, Iron Saturation 10.4 L, Unsaturated IBC 217 L, Ferritin 257, Vitamin B12 399 02/12/25 10:20: Vitamin D 25-Hydroxy 39.5 Micro: Microbiology 02/11/25 22:37 Stool Stool Occult Blood (ISHMAEL) - Final Occult Blood Positive Imaging Radiology Impression Brain CT 02/11/25 20:25 IMPRESSION: 1. Trace punctate hyperdensities in the right frontal lobe questionable for artifactual versus trace intraparenchymal hemorrhage. Attention to short-term follow-up. 2. No acute transcortical infarct. 3. No acute fracture or dislocation in the cervical spine. Reading Location: [id number] Cervical Spine CT 02/11/25 20:25 IMPRESSION: 1. Trace punctate hyperdensities in the right frontal lobe questionable for artifactual versus trace intraparenchymal hemorrhage. Attention to short-term follow-up. 2. No acute transcortical infarct. 3. No acute fracture or dislocation in the cervical spine. Reading Location: [id number] Shoulder X-Ray 02/11/25 20:35 IMPRESSION: Acute displaced left humerus fracture along the surgical neck. Partially visualized pleural effusion. Reading Location: [id number] Brain CT 02/11/25 21:10 IMPRESSION: The previously seen punctate hyperdensities in the right frontal lobe are favored to be artifact. No CT evidence of acute intracranial hemorrhage, transcortical infarct, or significant mass effect. No other significant changes. Reading Location: [id number]
--- NOTE | 2025-02-12 14:14 | CASEMGMT ---
Addendum entered by India Freeman 02/12/25 14:45: Received confirmation that [facility] can accept pt with SOC on Saturday. RN DEEJAY into pt room, pt is aware of this. Updated hospitalist on dc plan. DC readiness intervention added. Original Note: TC to [facility], referral made for PT and OT to Ann. She will review and call RN DEEJAY back.
--- NOTE | 2025-02-12 14:32 | CASEMGMT ---
JOSE LUIS VILLALBA Assessment: Face to Face with pt for initial transition planning/care coordination assessment. JOSE LUIS VILLALBA introduced self and role at [facility], pt voices understanding and consents to assessment. Pt is A&O x4 and answers all questions appropriately at this time. Pt lying in bed in no distress. Care providers, pharmacy, and demographics verified/updated. Strata: 2 Admitting Dx: L Humer[place] Fracture PCP: Dave Specialists: Denies Preferred Pharmacy: [facility] Insurance: [facility] Prescription Benefit: yes LNOK: DaughterCoco Living Arrangements: Pt lives alone in a 1 level home with 3-4 steps to enter. ADLs: Pt states I at baseline. Transportation: Pt drives self and denies concerns with transportation. DME: [employer] [employer]. HHC/SNF: Previously went to a SNF in [place], does not recall name of facility. Pt states no concerns with going home at time of dc. JOSE LUIS VILLALBA discussed HHC services with Pt, provided list of local agencies. Pt requested [facility] for therapy and SN. Pt states she is going to be staying at her daughters house upon DC, verified address with Pt. Pt daughter lives at [address], [place]. Pt states no further concerns/needs. CM to follow. Advised pt to ask CM if any further question/concerns/needs arise, voices understanding. JOSE LUIS VILLALBA gave report to JOSE LUIS VILLALBA on floor. Pt Goal: Daughter's home with HHC services. Plan: Daughters home, HHC services. Quin AMAYA CM
[2025-02-13] VITALS (14 sets, daily range): BP systolic 75–107; BP diastolic 40–52; PULSE 54–88; RESP 16–18; TEMP 36.2–36.8; O2SAT 95–96
[2025-02-13] MEDS: 0.9% Saline Lock 10 ML Syringe IV ×4 (05:22→23:46)
--- NOTE | 2025-02-13 07:53 | PCM.PN.HOSP ---
Subjective Subjective Was earlier reluctant to get out of bed due to pain in LUE. Objective Data Objective Data Vital Signs: Vital Signs Temp Pulse Resp BP Pulse Ox O2 Del Method O2 Flow Rate 36.6 C 66 16 107/52 L 96 Room Air 2 02/13/25 05:15 02/13/25 05:15 02/13/25 05:15 02/13/25 05:15 02/13/25 05:15 02/13/25 05:15 02/12/25 15:22 Oxygen Flow Rate (L/min) 2 Oxygen Delivery Method Room Air Weight: 48.7 kg Body Mass Index (BMI) 18.4 Intake & Output: Intake and Output for Last 24 Hours 02/11/25 02/12/25 02/13/25 23:59 23:59 23:59 Intake Total 250 / 250 Balance 250 / 250 Lab / Micro Data 02/13/25 07:39 02/12/25 05:24 Labs: Laboratory Results - last 24 hr 02/12/25 05:24: Sodium 135, Potassium 4.5, Chloride 99, Carbon Dioxide 23.8, Anion Gap 11, BUN 28 H, Creatinine 0.91, Estim Creat Clear Calc 39.17 L, Est GFR (MDRD) Non-Af 64, BUN/Creatinine Ratio 30.1 H, Glucose 76, Calcium 8.8, Magnesium 2.4 H, Iron 25 L, TIBC 242 L, Iron Saturation 10.4 L, Unsaturated IBC 217 L, Ferritin 257, Vitamin B12 399 02/12/25 10:20: Vitamin D 25-Hydroxy 39.5 Micro: Microbiology 02/11/25 22:37 Stool Stool Occult Blood (ISHMAEL) - Final Occult Blood Positive Physical Exam Const alert and no apparent distress HEENT head/scalp atraumatic and moist oral mucous membranes Resp normal respiratory effort and no retractions Extremity Extremity Narrative: edema in left upper shoulder, but not distally. Assessment & Plan Assessment/Plan (1) Closed fracture of left proximal humerus: QUALIFIERS: Encounter type: initial encounter Fracture morphology: unspecified fracture morphology Qualified Code(s): S42.202A - Unspecified fracture of upper end of left humerus, initial encounter for closed fracture (2) Fall: QUALIFIERS: Encounter type: initial encounter Qualified Code(s): W19.XXXA - Unspecified fall, initial encounter (3) Anemia: QUALIFIERS: Anemia type: unspecified type Qualified Code(s): D64.9 - Anemia, unspecified (4) Chronic anticoagulation: (5) Fecal occult blood test positive: (6) Recurrent left pleural effusion: (7) Non-ischemic cardiomyopathy: (8) Atrial flutter: QUALIFIERS: Atrial flutter type: unspecified Qualified Code(s): I48.92 - Unspecified atrial flutter PLAN: Plan Left humerus fracture: displaced Sling, non-weight bearing and pain control. ortho contacted: plan is conservative mgmt w sling. Follow in office in 2 weeks. Physical therapy and outpatient therapy. 25 hydroxy vitamin D 39.5. Start ergocalciferol for goal level of 50. Fall: Nothing suggest orthostasis but soft blood pressure and heart rate can definitely contribute. head CT, neck unremarkable. encouraged patient to work with therapy hypotension chronic. started midodrine hold entresto, spironolactone Chronic conditions: Anemia: Gradual decline in hemoglobin currently 10. On Eliquis. Positive fecal occult blood by ED. No symptoms or signs of active bleeding. Will check iron studies, folate and B12. Plan for outpatient follow-up left effusion: No extensive workup can be found, just protein and LDH in the system and negative cytology. Was referred to [facility] cardiothoracic surgery, options were offered including chest tube, PleurX, decortication etc. but patient opted only to have repeat arthrocentesis if needed and she currently does not feel she is there yet Cardiomyopathy:Compensated euvolemic, class II-III NYHA at baseline unknown if related to CHF or just deconditioning, EF improved 60% as of February, from 10 to 20% initially. Continue Entresto, beta-nba (currently weaned off because of low rate), Lasix. Aldactone was prescribed but patient did not take it atrial Flutter: Ablation done in June 2023. Continue Eliquis for CVA prevention. Heart rate in the 60s, cardiology this month weaned metoprolol 50 mg twice daily to 50 mg once daily for 1 week then stopped it, then heart rate rebounded to 130 and daughter resumed full dose. Plan: Resume weaning, 25 mg twice daily for a week then 12.5 twice daily etc. daughter is instructed clearly on very slow gradual weaning VTE prophylaxis: not indicted as already on apixaban. DW patient's dtr at bedside. Charges/Coding Visit Charges Inpatient E&M: 13492 Subs Hosp L2
[2025-02-13 08:08] LABS: Hematocrit 24.9 % (37-47); Hemoglobin 8.2 g/dL (12.0-15.0); Immature Granulocytes Count 0.010 X10^3/uL (0.0-0.0); Mean Corp Hgb Conc 32.9 g/dL (32-36); Mean Corpuscular Volume 93.6 fL (81-99); Mean Platelet Vol. 10.1 fl (6.2-12.0); NRBC Flagged by Analyzer 0 % (0-5); POSITIVE DIFFERENTIAL YES; Platelet Count 354 K/mm3 (150-450); RBC Distribution Width CV 15.4 % (11.6-14.6); RBC Distribution Width SD 53.0 fl (35.1-43.9); Red Blood Count 2.66 M/mm3 (4.2-5.4); White Blood Count 6.8 K/mm3 (4.4-11.0)
[2025-02-13] MEDS: Ergocalciferol 1.25 MG (50, 000 UNIT) Capsule PO (09:58)
[2025-02-13] MEDS: Lidocaine 5% Patch 1 PATCH TOPICAL (09:58)
[2025-02-13] MEDS: APIXABAN 5 MG TABLET PO ×2 (09:58→20:33)
--- NOTE | 2025-02-13 15:56 | CASEMGMT ---
JOSE LUIS VILLALBA received TC, pt daughter wanting to talk about TCU. JOSE LUIS VILLALBA into Pt room, pt resting in bed comfortably. Pt Daughter left for the day. Pt states she would like to go to TCU, she does not feel she is able to go home at this point and her daughter works timers inspector and will not always be there. Pt would like JOSE LUIS VILLALBA to call Pt Daughter. Called daughter, she states she would like Pt to go to TCU. If not able to accept, would like JOSE LUIS VILLALBA to follow up in regards to SNF for [facility]. JOSE LUIS VILLALBA looked up insurance policy, according to insurance website TCU is covered by her insurance. Made a referral via email. JOSE LUIS VILLALBA to follow.
[2025-02-13] MEDS: 0.9% Normal Saline (250mL Bag) 250 ML 999 ML IV (20:33)
[2025-02-13 22:25] LABS: CORTISOL PM 15.30 ug/dL (2.68-10.50)
[2025-02-13] MEDS: Cosyntropin 0.25 MG in 0.9% Normal Saline (Pres. free 4 ML 150 MG IV (23:46)
[2025-02-14] VITALS (7 sets, daily range): BP systolic 89–101; BP diastolic 42–61; PULSE 65–98; RESP 16; TEMP 36.6–36.8; O2SAT 93–95
[2025-02-14 01:32] LABS: CORTISOL AM 25.30 ug/dL (6.02-18.40)
--- NOTE | 2025-02-14 06:43 | PCM.HOSP.N ---
Hospitalist Note Cosyntropin stimulation test was done overnight, cortisol prior to and after cosyntropin was checked. It was negative for adrenal sufficiency She was on midodrine, unfortunately heart rate started to dip down to the 50s which can be a side effect hard to make a clear association, he remained asymptomatic. We switched her to Florinef, she got 1 dose later on her heart rate was in 60s, MAP around 60. Please reassess if Florinef can be continued if blood pressure and heart rate are better over time during the day. Likely, her EF improved to 60% on last echo and she is compensated and euvolemic so both midodrine or Florinef can be tolerated at least for now
[2025-02-14 07:40] LABS: Hematocrit 25.3 % (37-47); Hemoglobin 8.2 g/dL (12.0-15.0); Immature Granulocytes Count 0.040 X10^3/uL (0.0-0.0); Mean Corp Hgb Conc 32.4 g/dL (32-36); Mean Corpuscular Volume 93.4 fL (81-99); Mean Platelet Vol. 10.2 fl (6.2-12.0); NRBC Flagged by Analyzer 0 % (0-5); POSITIVE DIFFERENTIAL YES; Platelet Count 415 K/mm3 (150-450); RBC Distribution Width CV 15.5 % (11.6-14.6); RBC Distribution Width SD 52.9 fl (35.1-43.9); Red Blood Count 2.71 M/mm3 (4.2-5.4); White Blood Count 7.5 K/mm3 (4.4-11.0)
--- NOTE | 2025-02-14 07:44 | PCM.PN.HOSP ---
Subjective Subjective remains hypotensive, but other asymptomatic. Objective Data Objective Data Vital Signs: Vital Signs Temp Pulse Resp BP Pulse Ox O2 Del Method O2 Flow Rate 36.6 C 65 16 95/51 L 95 Room Air 2 02/14/25 01:30 02/14/25 03:00 02/14/25 01:30 02/14/25 01:30 02/14/25 01:30 02/14/25 01:30 02/12/25 15:22 Oxygen Flow Rate (L/min) 2 Oxygen Delivery Method Room Air Weight: 48.7 kg Body Mass Index (BMI) 18.4 Intake & Output: Intake and Output for Last 24 Hours 02/12/25 02/13/25 02/14/25 23:59 23:59 23:59 Intake Total 255 / 255 Balance 255 / 255 Lab / Micro Data 02/14/25 06:20 02/14/25 06:20 Labs: Laboratory Results - last 24 hr 02/13/25 07:39: WBC 6.8, RBC 2.66 L, Hgb 8.2 L, Hct 24.9 L, MCV 93.6, MCH 30.8, MCHC 32.9, RDW Std Deviation 53.0 H, RDW Coeff of Ingris 15.4 H, Plt Count 354, MPV 10.1, Immature Gran % (Auto) 0.100, Neut % (Auto) 76.4 H, Lymph % (Auto) 8.7 L, [place] % (Auto) 11.5 H, Eos % (Auto) 2.1, Baso % (Auto) 1.2 H, Absolute Neuts (auto) 5.2, Absolute Lymphs (auto) 0.59 L, Nucleated RBC % 0 02/13/25 21:33: Cortisol PM Sample 15.30 H 02/14/25 00:35: Cortisol AM Sample 25.30 H 02/14/25 06:20: WBC 7.5, RBC 2.71 L, Hgb 8.2 L, Hct 25.3 L, MCV 93.4, MCH 30.3, MCHC 32.4, RDW Std Deviation 52.9 H, RDW Coeff of Ingris 15.5 H, Plt Count 415, MPV 10.2, Immature Gran % (Auto) 0.500, Neut % (Auto) 93.8 H, Lymph % (Auto) 3.2 L, [place] % (Auto) 2.1, Eos % (Auto) 0.0, Baso % (Auto) 0.4, Absolute Neuts (auto) 7.0, Absolute Lymphs (auto) 0.24 L, Nucleated RBC % 0 Micro: Microbiology 02/11/25 22:37 Stool Stool Occult Blood (ISHMAEL) - Final Occult Blood Positive Physical Exam Const alert and no apparent distress Resp normal respiratory effort, no retractions, no use of accessory muscles and clear to auscultation bilaterally Cardio regular rate, regular rhythm, S1 normal heart sound and S2 normal heart sound GI normal to inspection, nondistended, normoactive bowel sounds, soft to palpation, non-tender and non-distended Extremity Extremity Narrative: left arm in sling. decreased proximal left arm edema. fading ecchymosis anterior left arm. Neuro Sensorium / Orientation: awake and alert Assessment & Plan Assessment/Plan (1) Closed fracture of left proximal humerus: QUALIFIERS: Encounter type: initial encounter Fracture morphology: unspecified fracture morphology Qualified Code(s): S42.202A - Unspecified fracture of upper end of left humerus, initial encounter for closed fracture (2) Fall: QUALIFIERS: Encounter type: initial encounter Qualified Code(s): W19.XXXA - Unspecified fall, initial encounter (3) Anemia: QUALIFIERS: Anemia type: unspecified type Qualified Code(s): D64.9 - Anemia, unspecified (4) Chronic anticoagulation: (5) Fecal occult blood test positive: (6) Recurrent left pleural effusion: (7) Non-ischemic cardiomyopathy: (8) Atrial flutter: QUALIFIERS: Atrial flutter type: unspecified Qualified Code(s): I48.92 - Unspecified atrial flutter PLAN: Plan Left humerus fracture: displaced Sling, non-weight bearing and pain control. ortho contacted: plan is conservative mgmt w sling. Follow in office in 2 weeks. Physical therapy and outpatient therapy. 25 hydroxy vitamin D 39.5. Start ergocalciferol 50k for 8 weeks for goal level of 50. Fall: Nothing suggest orthostasis but soft blood pressure and heart rate can definitely contribute. head CT, neck unremarkable. encouraged patient to work with therapy hypotension chronic. started midodrine, but given lack of response, patient received fludrocortisone. Will continue. hold entresto, spironolactone ACTH test WNL. check orthostats concern that the hypotension (though chronic) could be contributing to her falls. Anemia: On Eliquis. Hemoccult positive. Hemoglobin is lower than prior baseline but stable. Iron low, but normal ferritin. Folate pending. B12 WNL. Check TSH. Plan for outpatient follow-up given the humerus fracture Chronic conditions: left effusion: No extensive workup can be found, just protein and LDH in the system and negative cytology. Was referred to [facility] cardiothoracic surgery, options were offered including chest tube, PleurX, decortication etc. but patient opted only to have repeat arthrocentesis if needed and she currently does not feel she is there yet Cardiomyopathy:Compensated euvolemic, class II-III NYHA at baseline unknown if related to CHF or just deconditioning, EF improved 60% as of February, from 10 to 20% initially. atrial Flutter: Ablation done in June 2023. Continue Eliquis for CVA prevention. Metoprolol held given the ongoing hypotension. VTE prophylaxis: not indicted as already on apixaban. Disposition: initial plan was for the patient to go to her daughter's house, but she is very debilitated made the worse by the humerus fracture. Plan is for the TCU. Referral to TCU has been made and we are awaiting on a response. DW patient's dtr at bedside. Charges/Coding Visit Charges Inpatient E&M: 66553 Subs Hosp L2
[2025-02-14 08:02] LABS: Anion Gap 11 (7-18); BUN 38 mg/dL (4-19); BUN/Creat Ratio 28.9 RATIO (10-20); Calcium,Total 8.8 mg/dL (7.6-11.0); Carbon Dioxide 22.8 mmol/L (20.0-29.0); Chloride 100 mmol/L (96-106); Estimated Creatinine Clearance 27.00 ml/min (50-250); Glucose 100 mg/dL (70-99); Potassium 4.8 mmol/L (3.5-5.1)
[2025-02-14] MEDS: Lidocaine 5% Patch 1 PATCH TOPICAL (10:09)
[2025-02-14] MEDS: APIXABAN 5 MG TABLET PO ×2 (10:09→20:39)
[2025-02-14 13:07] LABS: Folate, Hemolysate Test 410.0 ng/mL (Not Estab.); Folate, RBC (Hct) Test 28.6 % (34.0-46.6); Folates, RBC Test 1434 ng/mL (>498)
[2025-02-15] VITALS (10 sets, daily range): BP systolic 88–109; BP diastolic 53–59; PULSE 78–101; RESP 15–16; TEMP 36.3–37; O2SAT 95–100
[2025-02-15 07:05] LABS: Hematocrit 24.9 % (37-47); Hemoglobin 8.0 g/dL (12.0-15.0); Immature Granulocytes Count 0.070 X10^3/uL (0.0-0.0); Mean Corp Hgb Conc 32.1 g/dL (32-36); Mean Corpuscular Volume 93.6 fL (81-99); Mean Platelet Vol. 10.1 fl (6.2-12.0); NRBC Flagged by Analyzer 0 % (0-5); POSITIVE DIFFERENTIAL YES; Platelet Count 443 K/mm3 (150-450); RBC Distribution Width CV 15.3 % (11.6-14.6); RBC Distribution Width SD 51.4 fl (35.1-43.9); Red Blood Count 2.66 M/mm3 (4.2-5.4); White Blood Count 9.1 K/mm3 (4.4-11.0)
[2025-02-15 07:31] LABS: Anion Gap 9 (7-18); BUN 34 mg/dL (4-19); BUN/Creat Ratio 28.4 RATIO (10-20); Calcium,Total 9.3 mg/dL (7.6-11.0); Carbon Dioxide 25.2 mmol/L (20.0-29.0); Chloride 100 mmol/L (96-106); Estimated Creatinine Clearance 29.95 ml/min (50-250); Glucose 89 mg/dL (70-99); Potassium 4.6 mmol/L (3.5-5.1)
[2025-02-15] MEDS: Lidocaine 5% Patch 1 PATCH TOPICAL (09:16)
[2025-02-15] MEDS: APIXABAN 5 MG TABLET PO ×2 (09:16→21:48)
--- NOTE | 2025-02-15 10:45 | CASEMGMT ---
Addendum entered by India Freeman 02/15/25 16:00: [facility] is aware that pt will dc to her dtr's home [place] and to call her with the appt time per pt and dtr request. Addendum entered by India Freeman 02/15/25 15:59: Received notification that pt was denied SNF level of care. Updated hospitalist who does not feel a peer to peer is necessary. JOSE LUIS VILLALBA into pt room, pt is aware of the information and read her the reasons as well. Pt asks JOSE LUIS VILLALBA to call her dtr Jazmin. TC to Jazmin who is very upset. Pt and dtr do still want HHC and ask for [facility] [employer] [facility] to be added to referral. They are aware that pt will be dc'd tomorrow. Pt dtr states she works and cannot come until after 4pm, offered to see if today would be better. It was not. Plan for dc tomorrow with [facility] to start on Saturday with [employer] [facility] added. Pt dtr states she will buy the hemiwalker on her own as to not use the insurance benefit for AD on it. TC to Ann at [facility], she is aware pt will dc tomorrow and add [employer] [facility]. They will see pt on Saturday. Pt and dtr deny any further questions. Addendum entered by India Freeman 02/15/25 14:32: JOSE LUIS VILLALBA into pt room, pt is aware that she was accepted at [facility] and that precert is pending. Pt denies any questions. Addendum entered by India Freeman 02/15/25 11:06: Updated Ann at [facility] that a referral was made to [facility] and pt is pending precert. Original Note: Pt accepted by [facility] and precert started at this time per
--- NOTE | 2025-02-15 16:57 | PCM.PN.HOSP ---
Subjective Subjective Patient was seen and examined today, her daughter was in the room at the time my examination. At the time of my exam this morning, we are awaiting word from her insurance carrier to see if the patient will qualify for skilled care, later on this afternoon we found out that she does not. The plan will be for her to return home with home health Objective Data Objective Data Vital Signs: Vital Signs Temp Pulse Resp BP Pulse Ox O2 Del Method O2 Flow Rate 98.6 F 86 16 97/53 L 100 Room Air 2 02/15/25 13:26 02/15/25 15:45 02/15/25 13:26 02/15/25 13:26 02/15/25 13:26 02/15/25 13:26 02/12/25 15:22 Oxygen Flow Rate (L/min) 2 Oxygen Delivery Method Room Air Weight: 48.7 kg Body Mass Index (BMI) 18.4 Intake & Output: Intake and Output for Last 24 Hours 02/13/25 02/14/25 02/15/25 23:59 23:59 23:59 Intake Total 255 / 255 400 / 400 Balance 255 / 255 400 / 400 Lab / Micro Data 02/15/25 06:25 02/15/25 06:25 Labs: Laboratory Results - last 24 hr 02/15/25 06:25: WBC 9.1, RBC 2.66 L, Hgb 8.0 L, Hct 24.9 L, MCV 93.6, MCH 30.1, MCHC 32.1, RDW Std Deviation 51.4 H, RDW Coeff of Ingris 15.3 H, Plt Count 443, MPV 10.1, Immature Gran % (Auto) 0.800, Neut % (Auto) 86.3 H, Lymph % (Auto) 4.9 L, [place] % (Auto) 7.8, Eos % (Auto) 0.0, Baso % (Auto) 0.2, Absolute Neuts (auto) 7.9 H, Absolute Lymphs (auto) 0.45 L, Nucleated RBC % 0, Sodium 134 L, Potassium 4.6, Chloride 100, Carbon Dioxide 25.2, Anion Gap 9, BUN 34 H, Creatinine 1.19, Estim Creat Clear Calc 29.95 L, Est GFR (MDRD) Non-Af 47 L, BUN/Creatinine Ratio 28.4 H, Glucose 89, Calcium 9.3 Micro: Microbiology 02/11/25 22:37 Stool Stool Occult Blood (ISHMAEL) - Final Occult Blood Positive Patient's Goals Of Care - F/U Goals Reviewed Goals of care reviewed with patient: NA-No significant change in clinical Status /major procedure scheduled Physical Exam Const alert, oriented x3, no apparent distress and average body habitus General Appearance: cooperative, well kempt and well developed Orientation / Consciousness: awake, oriented to person, oriented to place and oriented to time HEENT normocephalic, head/scalp atraumatic and moist oral mucous membranes Eyes PERRL, EOMs intact bilaterally and conjunctivae normal Neck supple, no JVD, thyroid normal and no carotid bruits General: trachea midline Resp normal respiratory effort, no retractions, no use of accessory muscles and clear to auscultation bilaterally Auscultation: Negative for rales, rhonchi or wheezes Cardio regular rate, regular rhythm, S1 normal heart sound, S2 normal heart sound, no murmurs, no rub and no gallops GI normal to inspection, nondistended, normoactive bowel sounds, soft to palpation, non-tender and non-distended Extremity no clubbing, cyanosis or edema Extremity Narrative: Patient's left arm is in a sling Skin no rashes or lesions noted General Skin Exam: no breakdown Neuro oriented x3, CN's II-XII intact bilaterally, moves all extremities, no focal motor deficits and no sensory deficits noted Sensorium / Orientation: awake and alert Speech: speech normal Psych affect normal Assessment & Plan Assessment/Plan (1) Closed fracture of surgical neck of left humerus: QUALIFIERS: Encounter type: initial encounter Fracture morphology: 2-part Fracture alignment: displaced Qualified Code(s): S42.222A - 2-part displaced fracture of surgical neck of left humerus, initial encounter for closed fracture PLAN: Plan 1. Left humerus fracture secondary to osteoporosis-arrangements will be made for the patient to have home health, patient will be reevaluated tomorrow for possible discharge #2 hypotension-etiology unclear at this point, Decided to place the patient back on midodrine and stop her Florinef #3 nonischemic cardiomyopathy-patient's last echocardiogram showed a normal ejection fraction, patient is currently off her medications except for Jardiance due to her blood pressure. #4 paroxysmal atrial flutter-patient remains on anticoagulation for now, metoprolol was stopped due to the patient's blood pressure Total clinical time spent by myself addressing the patient's medical issues, reviewing all of her data, and collaborating with patient's care team: 35 minutes Charges/Coding Visit Charges Inpatient E&M: 68930 Subs Hosp L2
--- NOTE | 2025-02-15 17:15 | ECHOLC_ITS ---
Reason For Study Reason For Study: CARDIOMYOPATHY Procedure This was a limited 2D transthoracic echocardiogram. The patient is in sinus rhythm. Contrast injection was performed. Patient was scanned supine. Limited windows due to left humerous fracture and unable to move arm. Exam performed portable in patient room. Left Ventricle Normal-sized left ventricle. Left ventricular EF by Griffiths's biplane: 58%. E/e' suggest normal filling pressures. No regional wall motion abnormalities noted. Right Ventricle Normal right ventricle. Normal systolic function. Right ventricular systolic pressure estimated to be 30-35 mmHg. Atria Borderline dilated left atrium. Normal sized right atrium. Right atrial pressure estimated at: 8 mmHg. Mitral Valve Thickened mitral valve leaflets. No mitral stenosis. Trace mitral regurgitation. Tricuspid Valve Normal tricuspid valve. Mild tricuspid regurgitation. No tricuspid stenosis. Aortic Valve Trileaflet aortic valve. Valve opens well. Calcified noncoronary cusp. Mild aortic regurgitation by color-flow Doppler. Pulmonic Valve The pulmonic valve is not well visualized. Great Vessels Normal sized aortic root. Normal ascending aorta. Pericardium/Pleural No pericardial effusion. Epicardial fat. Medication Diluted definity 2.5ml given slow IV push to enhance endocardial definition. MMode/2D Measurements & Calculations LVIDd: 3.9 cm IVSd: 0.93 cm LAV(MOD- bp): 50.5 ml LVIDs: 2.8 cm LVPWd: 0.92 cm FS: 27.6 % LAV(MOD- bp) Indexed: 33.7 ml/m2 LAV(MOD- sp2): 40.6 ml LAV(MOD- sp4): 60.6 ml LVAd ap4: 18.7 cm2 LVAd ap2: 24.1 cm2 EDV(MOD- bp): 57.5 ml LVLd ap4: 6.2 cm LVLd ap2: 6.5 cm ESV(MOD- bp): 23.8 ml EDV(MOD-sp4): 45.1 ml EDV(MOD-sp2): 74.2 ml EF(MOD- bp): 58.6 % EDV(sp4-el): 48.0 ml EDV(sp2-el): 76.0 ml LVAs ap4: 9.2 cm2 LVAs ap2: 15.1 cm2 LVLs ap4: 5.1 cm LVLs ap2: 6.2 cm ESV(MOD-sp4): 14.1 ml ESV(MOD-sp2): 32.4 ml ESV(sp4-el): 14.1 ml ESV(sp2-el): 31.2 ml EF(MOD-sp4): 68.7 % EF(MOD-sp2): 56.3 % EF(sp4-el): 70.6 % SV(MOD-sp4): 31.0 ml SV(MOD-sp2): 41.8 ml SV(sp4- el): 33.9 ml SI(MOD-sp4): 20.7 ml/m2 SI(MOD-sp2): 27.9 ml/m2 Ao sinus diam: 3.[address] Junction: 2.5 cm LA A4 area: 20.6 cm2 LA dimension(2D): 3.4 cm RA A4 area: 13.7 cm2 TAPSE: 1.5 cm Time Measurements MV dec time: 0.10 sec Doppler Measurements & Calculations MV E max tony: 82.9 cm/sec Lat Peak E' Tony: 12.9 cm/sec Med Peak E' Tony: 7.2 cm/sec MV A max otny: 46.1 cm/sec E/E' lat: 6.4 E/E' med: 11.6 MV E/A: 1.8 TR max tony: 253.0 cm/sec MV dec slope: 804.5 cm/sec2 TR max P.6 mmHg ECHO/Echo Limited w/Contrast Interpretation Summary Limited echocardiogram. Normal left ventricular systolic function with EF by Griffiths's biplane: 58% E/e' suggest gonzalo left ventricular filling pressures Normal right ventricular systolic function Mild aortic regurgitation Recommend routine echocardiographic valvular surveillance of aortic regurgitati on in 3 years. Ordering Physician: José Miguel Tripathi Referring Physician: JEFF ALEMAN Performed By: Leonarda Steinberg RDCS
[2025-02-15] MEDS: 0.9% Saline Lock 10 ML Syringe IV ×2 (18:22→21:52)
[2025-02-15] MEDS: Sodium Ferric Gluconat/Sucrose 250 MG in 0.9% Normal Saline (250mL Bag) 250 ML 135 MG IV (18:22)
[2025-02-16] VITALS (7 sets, daily range): BP systolic 100–112; BP diastolic 56–68; PULSE 86–98; RESP 15–20; TEMP 36.6–36.7; O2SAT 93–95
[2025-02-16 06:29] LABS: Hematocrit 23.8 % (37-47); Hemoglobin 7.9 g/dL (12.0-15.0); Immature Granulocytes Count 0.040 X10^3/uL (0.0-0.0); Mean Corp Hgb Conc 33.2 g/dL (32-36); Mean Corpuscular Volume 93.0 fL (81-99); Mean Platelet Vol. 9.6 fl (6.2-12.0); NRBC Flagged by Analyzer 0 % (0-5); Platelet Count 432 K/mm3 (150-450); RBC Distribution Width CV 15.6 % (11.6-14.6); RBC Distribution Width SD 53.0 fl (35.1-43.9); Red Blood Count 2.56 M/mm3 (4.2-5.4); White Blood Count 7.6 K/mm3 (4.4-11.0)
[2025-02-16] MEDS: Sodium Ferric Gluconat/Sucrose 250 MG in 0.9% Normal Saline (250mL Bag) 250 ML 135 MG IV (07:58)
--- NOTE | 2025-02-16 10:10 | NURSING ---
After ECHO, tech called out to nursing and said patient felt like she was having a hard time catching her breath. This nurse into room, sats 93% on RA. Pt repositioned in bed x2 assist. Patient reports that the short of breath feeling was no longer happening. BP 103/56, heart rate 88.
[2025-02-16] MEDS: 0.9% Saline Lock 10 ML Syringe IV (10:29)
[2025-02-16] MEDS: APIXABAN 5 MG TABLET PO (10:31)
--- NOTE | 2025-02-16 15:18 | DCINST_ITS ---
Discharge Instructions DC O2, CPAP, BIPAP needs Home O2 Discharge instructions: No Dressing / Incision Discharge Activity: Return to Normal Activity Weight Bearing Status: Full weight bearing Follow Up Care Test Results: Test results from this visit will be discussed in further detail at your follow- up appointment, if applicable. Discharge Plan Admission Admit Date/Time: 02/11/25 23:51 Primary Reason for Your Visit: Fracture of the surgical neck of the left humerus Attending Provider: José Miguel Tripathi Primary Care Provider: Rachna Acosta Consulting Providers: Dandre Lagunas; Aziza Romano; Rangel Kinney Instructions Additional Instructions / Restrictions: Straighten and flex your fingers and wrist to avoid stiffness and when pain allows probably over the next week, start some early elbow range of motion to avoid stiffness in the area. Discharge Orders/Prescriptions Prescriptions: New midodrine 5 mg Tablet 10 mg PO TIDCM Qty: 90 0RF tramadol 50 mg Tablet 50 - 100 mg PO Q6H PRN PRN (Reason: Pain Score 1-10) Qty: 40 0RF ergocalciferol (vitamin D2) [Vitamin D2] 1,250 mcg (50,000 unit) Capsule 1,250 mcg PO Q7D Qty: 4 0RF metoprolol succinate 25 mg tablet extended release 24 hr 12.5 mg PO BID Qty: 15 0RF Continued (DME) handicap Placcard See Rx Instructions .Route .MEDSUPPLY Qty: 1 0RF Rx Instructions: Dx: Cardiomyopathy Expires: 12/2027 budesonide-formoterol [Breyna] 160-4.5 mcg/actuation HFA aerosol inhaler 2 puff inhalation BID PRN (Reason: shortness of breath or wheezing) Eliquis 5 mg tablet 5 mg PO BID Qty: 180 3RF Jardiance 10 mg tablet 10 mg PO DAILY Qty: 30 11RF Discontinued furosemide 40 mg tablet 40 mg PO DAILY spironolactone 25 mg tablet 25 mg PO DAILY Qty: 30 11RF metoprolol tartrate 50 mg tablet 50 mg PO BID Entresto 24-26 mg tablet 1 tab PO BID Qty: 180 3RF Referrals / Follow Up: Dandre Lagunas DO [Med Staff - Active Staff, Orthopedics] - See Referral Note Referral Note: In 2 weeks, call office for an appointment Rachna Acosta DO [Primary Care Provider, Family Practice] - Within 1 Week Referral Note: You will need to have a CBC rechecked due to your anemia Omero Kim NP, [facility] [Med Staff - [facility] Practice Prof, Cardiology] - See Referral Note Referral Note: In 3 to 4 weeks due to your cardiac medication changes Disposition Disposition (needs filled in before D/C Order can be placed): Home, Self Care
--- NOTE | 2025-02-16 15:32 | DS.PCM_ITS ---
Providers Date of Admission: 02/11/25 Date of Discharge: 02/16/25 Primary Care Physician: Dr. Rachna Aleman, Consultations 02/12/25 00:44 Consult: Orthopedics Routine Consulting Provider: Dandre Lagunas Reason for Consult: Left proximal humerus fracture EMERGENT Consult: Yes MD Notified: Yes Date Notified: 02/12/25 Time Notified: 00:44 Method of Notification: ED Physician Initiated Reason For Visit: LEFT HUMEROUR FRACTURE Diagnosis Discharge Diagnosis (1) Closed fracture of surgical neck of left humerus: Status: Acute Code(s): S42.212A - Unspecified displaced fracture of surgical neck of left humerus, initial encounter for closed fracture Qualifiers: Encounter type: initial encounter Fracture alignment: displaced F racture morphology: 2-part Qualified Code(s): S42.222A - 2-part displaced fracture of surgical neck of left humerus, initial encounter for closed fracture Plan 1. Left humerus fracture secondary to osteoporosis-arrangements will be made for the patient to have home health, patient will be reevaluated tomorrow for possible discharge #2 hypotension-etiology unclear at this point, Decided to place the patient back on midodrine and stop her Florinef #3 nonischemic cardiomyopathy-patient's last echocardiogram showed a normal ejection fraction, patient is currently off her medications except for Jardiance due to her blood pressure. #4 paroxysmal atrial flutter-patient remains on anticoagulation for now, metoprolol was stopped due to the patient's blood pressure Total clinical time spent by myself addressing the patient's medical issues, reviewing all of her data, and collaborating with patient's care team: 35 minutes Medications at Discharge Home Medications handicap Placcard #1 ea 12/20/22 apixaban 5 mg tablet (Eliquis) 5 mg PO BID #180 tabs 04/06/24 empagliflozin 10 mg tablet (Jardiance) 10 mg PO DAILY #30 tabs 06/08/24 budesonide-formoterol HFA 160 mcg-4.5 mcg/actuation aerosol inhaler (Breyna) 2 puff inhalation BID PRN shortness of breath or wheezing 11/03/24 ergocalciferol (vitamin D2) 1,250 mcg (50,000 unit) capsule (Vitamin D2) 1,250 mcg PO Q7D #4 caps 02/16/25 metoprolol succinate 25 mg tablet,extended release 24 hr 12.5 mg (1/2 x 25 mg) PO BID #15 tabs 02/16/25 midodrine 5 mg tablet 10 mg (2 x 5 mg) PO TIDCM #90 tabs 02/16/25 tramadol 50 mg tablet 50 - 100 mg (1 - 2 x 50 mg) PO Q6H PRN PRN Pain Score 1-10 #40 tabs 02/16/25 Hospital Course Operations None Procedures 2-D Echocardiogram Summary of Care Provided Minutes Spent on Discharge: 30 Hospital Course: This 79-year-old white female was seen in the emergency room at [facility] [place] after experiencing mechanical fall at home. Patient injured her left shoulder, x-rays in the emergency room showed a left proximal humerus fracture, patient's hemoglobin was 10.1, Ceferino profile was abnormal for sodium of 132 and a BUN of 30. Patient was admitted to [place] [id number] and seen by PT and OT. Patient wanted to go to a residential facility for inpatient rehab services but her insurance would not cover this. During her hospitalization, patient's hemoglobin declined, it was noted that it was an iron deficiency hemoglobin and she was given IV iron. It was felt that some of the anemia could have resulted from her humeral fracture. In addition, patient's blood pressure trended low during her hospitalization and she had to be taken off of most of her medications she was on for her cardiomyopathy. Patient was placed on midodrine and her blood pressure appeared to stabilize. 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 On 02/16/2025, patient was seen and examined:alert, oriented x3, no apparent distress and average body habitus General Appearance: cooperative, well kempt and well developed Orientation / Consciousness: awake, oriented to person, oriented to place and oriented to time HEENT normocephalic, head/scalp atraumatic and moist oral mucous membranes Eyes PERRL, EOMs intact bilaterally and conjunctivae normal Neck supple, no JVD, thyroid normal and no carotid bruits General: trachea midline Resp normal respiratory effort, no retractions, no use of accessory muscles and clear to auscultation bilaterally Auscultation: Negative for rales, rhonchi or wheezes Cardio regular rate, regular rhythm, S1 normal heart sound, S2 normal heart sound, no murmurs, no rub and no gallops GI normal to inspection, nondistended, normoactive bowel sounds, soft to palpation, non-tender and non-distended Extremity no clubbing, cyanosis or edema Extremity Narrative: Patient's left arm is in a sling Skin no rashes or lesions noted General Skin Exam: no breakdown Neuro oriented x3, CN's II-XII intact bilaterally, moves all extremities, no focal motor deficits and no sensory deficits noted Sensorium / Orientation: awake and alert Speech: speech normal Psych affect normal Patient was discharged home in stable condition on 02/16/2025. Weight / BMI Weight Weight: 48.7 kg Body Mass Index (BMI) 18.4 ABG / Lab / Microbiology Data 02/16/25 06:06 02/15/25 06:25 Laboratory: Laboratory Results - last 24 hr 02/16/25 06:06: WBC 7.6, RBC 2.56 L, Hgb 7.9 L, Hct 23.8 L, MCV 93.0, MCH 30.9, MCHC 33.2, RDW Std Deviation 53.0 H, RDW Coeff of Ingris 15.6 H, Plt Count 432, MPV 9.6, Immature Gran % (Auto) 0.500, Neut % (Auto) 78.9 H, Lymph % (Auto) 8.1 L, M maribell % (Auto) 10.5 H, Eos % (Auto) 1.3, Baso % (Auto) 0.7, Absolute Neuts (auto) 6.0, Absolute Lymphs (auto) 0.61 L, Nucleated RBC % 0 Microbiology: Microbiology 02/11/25 22:37 Stool Stool Occult Blood (ISHMAEL) - Final Occult Blood Positive Radiography Diagnostic Testing: Radiology Impression Echocardiogram 02/15/25 17:15 Interpretation Summary Limited echocardiogram. Normal left ventricular systolic function with EF by Griffiths's biplane: 58% E/e' suggest gonzalo left ventricular filling pressures Normal right ventricular systolic function Mild aortic regurgitation Recommend routine echocardiographic valvular surveillance of aortic regurgitation in 3 years. Ordering Physician: José Miguel Tripathi Referring Physician: RACHNA ALEMAN Performed By: Leonarda Steinberg RDCS D/C Instructions Weight Bearing Status: Full weight bearing DC O2, CPAP, BIPAP Needs Home O2 Discharge instructions: No Meaningful Use Info Meaningful Use Meaningful Use Diagnoses (Choose all that apply): None applicable Discharge Plan Admission Admit Date/Time: 02/11/25 23:51 Primary Reason for Your Visit: Fracture of the surgical neck of the left humerus Attending Provider: José Miguel Tripathi Primary Care Provider: Rachna Aleman Consulting Providers: Dandre Lagunas; Aziza Romano; Rangel Kinney Instructions Additional Instructions / Restrictions: Straighten and flex your fingers and wrist to avoid stiffness and when pain allows probably over the next week, start some early elbow range of motion to avoid stiffness in the area. Take ferrous sulfate 325 mg 1 twice a day-you may have to reduce it to 1 a day if you get constipated or intolerant of the iron Discharge Orders/Prescriptions Prescriptions: New midodrine 5 mg Tablet 10 mg PO TIDCM Qty: 90 0RF tramadol 50 mg Tablet 50 - 100 mg PO Q6H PRN PRN (Reason: Pain Score 1-10) Qty: 40 0RF ergocalciferol (vitamin D2) [Vitamin D2] 1,250 mcg (50,000 unit) Capsule 1,250 mcg PO Q7D Qty: 4 0RF metoprolol succinate 25 mg tablet extended release 24 hr 12.5 mg PO BID Qty: 15 0RF Continued (DME) handicap Placcard See Rx Instructions .Route .MEDSUPPLY Qty: 1 0RF Rx Instructions: Dx: Cardiomyopathy Expires: 12/2027 budesonide-formoterol [Breyna] 160-4.5 mcg/actuation HFA aerosol inhaler 2 puff inhalation BID PRN (Reason: shortness of breath or wheezing) Eliquis 5 mg tablet 5 mg PO BID Qty: 180 3RF Jardiance 10 mg tablet 10 mg PO DAILY Qty: 30 11RF Discontinued furosemide 40 mg tablet 40 mg PO DAILY spironolactone 25 mg tablet 25 mg PO DAILY Qty: 30 11RF metoprolol tartrate 50 mg tablet 50 mg PO BID Entresto 24-26 mg tablet 1 tab PO BID Qty: 180 3RF Referrals / Follow Up: Dandre Laugnas DO [Med Staff - Active Staff, Orthopedics] - See Referral Note Referral Note: In 2 weeks, call office for an appointment Rachna Aleman DO [Primary Care Provider, Family Practice] - Within 1 Week Referral Note: You will need to have a CBC rechecked due to your anemia Omero Kim NP, [employer] [Med Staff - Adv Practice Prof, Cardiology] - See Referral Note Referral Note: In 3 to 4 weeks due to your cardiac medication changes Disposition Disposition (needs filled in before D/C Order can be placed): Home, Self Care Charges/Coding Visit Charges Inpatient E&M: 57319 Disch Hosp
--- NOTE | 2025-02-16 15:36 | CASEMGMT ---
Pt with dc order placed, notified [facility] that pt will dc today as planned.
== END 2025-02-16 17:47 | disposition home health service (06) | DRG 543 ==
LOC: ED 23:56 → MS3 02-12 00:13
PROVIDERS: Admitting Provider Internal Medicine; Emergency Provider Emergency Medicine; PCP Family Medicine; Visit Provider Internal Medicine
DX: M80.022A Age-related osteoporosis with current pathological fracture, left humerus, initial encounter for fracture (principal); I48.92 Unspecified atrial flutter; I42.8 Other cardiomyopathies; J90 Pleural effusion, not elsewhere classified; S09.90XA Unspecified injury of head, initial encounter; D50.9 Iron deficiency anemia, unspecified; R19.5 Other fecal abnormalities; E78.5 Hyperlipidemia, unspecified; I95.89 Other hypotension; W01.0XXA Fall on same level from slipping, tripping and stumbling without subsequent striking against object, initial encounter; Z79.01 Long term (current) use of anticoagulants; Z79.899 Other long term (current) drug therapy; Z87.891 Personal history of nicotine dependence
CPT/HCPCS: 36415; 70450; 72125; 73030; 80048; 82274; 82306; 82533; 82607; 82728; 82747; 83540; 83550; 83735; 84443; 85014; 85025; 93308; 97116; 97162; 97166; 97530; 97535; 97802; 99285; Q9957; A4216; C8924; J0834; J2405; J2916